=== PATIENT | male | born 1960 | race Hispanic/Latino ===

== ENCOUNTER 2017-02-08 21:59 | Inpatient (IN) | payer MEDICARE, OTHER ==
[2017-02-08 22:25] VITALS: BMI 43.0
[2017-02-08] MEDS ORDERED: Sodium Chloride 0.9% 1,000 ML IV STA (22:27)
[2017-02-08] MEDS ORDERED: Vancomycin 500 mg Inj IVPB STA (22:28)
[2017-02-08] MEDS ORDERED: Oxycodone/Acetaminophen 5/325 mg Tab PO STA (22:28)
[2017-02-08] MEDS ORDERED: Piperacillin/Tazobact 3.375 gm 100 ML IVPB STA (22:28)
--- NOTE | 2017-02-08 22:41 | ED PDOC ---
Arrival/HPI - General Time Seen by Provider: 02/08/17 22:06 Historian: Patient - History of Present Illness Narrative History of Present Illness (Text): 02/08/17 22:29 Omer Rome is a 56 year old male, whose past medical history includes chronic leg ulcer with multiple infections, CHF, COPD, DVT s/p IVC filter, hypertension, diabetes, and sleep apnea, presents to the emergency department for evaluation of worsening bilateral lower extremity redness and swelling. Patient also notes that he has an open wound to the left calf. He reports he had a fever of 101F yesterday, which resolved after waking up today. Report that he takes Oxycontin and Percocet for chronic pain, with last dose today at 9 am. States that pain has become worse that he is unable to ambulate within the house. He was recently hospitalized for an infection to open would on left leg. Not on any antibiotics currently. Patient fell down yesterday and states he was on the ground for 3 hours and has difficulty time getting back up on his feet. He is requesting to be placed in a custodial. Denies any headache, dizziness, trauma to head, chest pain, shortness of breath, cough, nausea, vomiting, diarrhea, urinary symptoms, or any other complaints at this time. PMD: Time/Duration: Other (worsening today ) Symptom Onset: Gradual Symptom Course: Worsening Severity Level: Moderate Activities at Onset: Light Context: Home Past Medical History - Provider Review Nursing Documentation Reviewed: Yes - Infectious Disease Hx of Infectious Diseases: MRSA, ESL - Tetanus Immunization Tetanus Immunization: Unknown - Reproductive Currently : No - Cardiac Hx Congestive Heart Failure: Yes Hx Hypertension: Yes Hx Peripheral Edema: Yes (+4 edema) - Pulmonary Hx Asthma: Yes Hx Chronic Obstructive Pulmonary Disease (COPD): Yes Hx Pneumonia: Yes Hx Pulmonary Embolism: Yes Hx Sleep Apnea: Yes - Neurological Hx Neurological Disorder: No - HEENT Hx HEENT Disorder: No - Renal Hx Renal Disorder: No - Endocrine/Metabolic Hx Hyperthyroidism: Yes Hx Hypothyroidism: Yes - Hematological/Oncological Hx Blood Disorders: No - Integumentary Hx Dermatological Disorder: Yes Hx Cellulitis: Yes (BLE) Other/Comment: both leggs discolored - Musculoskeletal/Rheumatological Hx Arthritis: Yes Hx Fractures: Yes - Gastrointestinal Hx Gastrointestinal Disorders: Yes - Genitourinary/Gynecological Hx Genitourinary Disorders: No - Psychiatric Hx Depression: Yes Hx Substance Use: No - Surgical History Hx Orthopedic Surgery: Yes (bilateral knee replacement) Other/Comment: total left knee - 1998. right ankle screws - 1987. right hip jason - 1982 - Anesthesia Hx Anesthesia: Yes Hx Anesthesia Reactions: No Hx Malignant Hyperthermia: No - Suicidal Assessment Feels Threatened In Home Enviroment: No Family/Social History - Physician Review Nursing Documentation Reviewed: Yes Family/Social History: No Known Family HX Smoking Status: Never Smoked Hx Alcohol Use: No Hx Substance Use: No Hx Substance Use Treatment: No Allergies/Home Meds Allergies/Adverse Reactions: Allergies No Known Allergies Allergy (Verified 02/08/17 22:09) Review of Systems - Physician Review All systems were reviewed & negative as marked: Yes - Review of Systems Constitutional: Fevers Respiratory: Normal. absent: SOB, Cough, Sputum Cardiovascular: Normal. absent: Chest Pain, Palpitations Gastrointestinal: Normal. absent: Abdominal Pain, Diarrhea, Nausea, Vomiting Musculoskeletal: Other (bilateral lower extremity edema. Open wound to left calf with discharge ) Neurological: Normal. absent: Headache, Dizziness Psychiatric: Normal Physical Exam Vital Signs Reviewed: Yes Vital Signs Temp Pulse Resp BP Pulse Ox 02/09/17 00:45 85 18 142/60 95 02/08/17 22:32 98.9 F 87 22 109/57 L 94 L Temperature: Afebrile Blood Pressure: Normal Pulse: Regular Respiratory Rate: Normal Appearance: Positive for: Non-Toxic, Other (obese ) Pain Distress: Mild Mental Status: Positive for: Alert and Oriented X 3 - Systems Exam Head: Present: Atraumatic, Normocephalic Pupils: Present: PERRL Conjunctiva: Present: Normal Respiratory/Chest: Present: Clear to Auscultation, Good Air Exchange. No: Respiratory Distress, Accessory Muscle Use Cardiovascular: Present: Regular Rate and Rhythm, Normal S1, S2. No: Murmurs Abdomen: Present: Normal Bowel Sounds. No: Tenderness, Distention, Peritoneal Signs Upper Extremity: Present: Normal Inspection. No: Cyanosis, Edema Lower Extremity: Present: Edema, Swelling, Erythema, Neurovascularly Intact, Other (10 cm open wound on left calf. Bilateral lower extremity edema with erythema. Chronic apperaing venous stasis changes with multiple ulcerations. ) . No: Deformity Neurological: Present: GCS=15, CN II-XII Intact, Speech Normal Skin: Present: Warm, Dry, Normal Color. No: Rashes Psychiatric: Present: Alert, Oriented x 3, Normal Insight, Normal Concentration Medical Decision Making ED Course and Treatment: Progress Notes: 02/08/17 23:06 EKG interpreted by me: NSR @ 81 bpm. Normal axis. No acute ischemia. 02/09/17 00:09 Chest X-ray interpreted by me: No acute processes. Case discussed with Dr. Gonzalez who is aware and agrees with the plan to admit patient to Med/Surg for lower extremity cellulitis. Accepts patient under his service. - Lab Interpretations I have reviewed the lab results: Yes - RAD Interpretation Radiology Orders: 02/08/17 22:27 CHEST PORTABLE [RAD] Stat Private Watchman: ED Physician - EKG Interpretation Interpreted by ED Physician: Yes Type: 12 lead EKG - Medication Orders Current Medication Orders: Amlodipine Besylate (Norvasc) 5 mg PO DAILY [facility] Last Admin: 02/11/17 10:13 Dose: 5 MG Arformoterol Tartrate (Brovana) 15 mcg IH [id number] [facility] Last Admin: 02/11/17 20:29 Dose: Not Given Non-Admin Reason: Patient Refused Budesonide (Pulmicort Respules) 0.5 mg IH [id number] [facility] Last Admin: 02/11/17 20:29 Dose: Not Given Non-Admin Reason: Patient Refused Clonidine HCl (Catapres) 0.1 mg PO BID [facility] Last Admin: 02/11/17 18:33 Dose: Not Given Non-Admin Reason: Patient Refused Docusate Sodium (Colace) 100 mg PO TID [facility] Last Admin: 02/11/17 18:14 Dose: Not Given Non-Admin Reason: Patient Refused Enoxaparin Sodium (Lovenox) 80 mg SC Q12H [facility] PRN Reason: Protocol Last Admin: 02/11/17 10:13 Dose: 80 MG Subcutaneous Administrations Document 02/11/17 10:13 VARSHA (Rec: 02/11/17 10:13 VARSHA [id number]) Injection Site MAR Injection Site Right Abdomen Charges for Administration # of Subcutaneous Administrations 1 Finasteride (Proscar) 5 mg PO DAILY [facility] Last Admin: 02/11/17 10:14 Dose: 5 MG Furosemide (Lasix) 80 mg PO Q8H [facility] Last Admin: 02/11/17 14:42 Dose: 80 MG MAR Blood Pressure Document 02/11/17 14:42 VARSHA (Rec: 02/11/17 14:42 VARSHA [id number]) Blood Pressure Blood Pressure (100/60-150/90) 155/69 Hydralazine HCl (Apresoline) 10 mg PO QID [facility] Last Admin: 02/11/17 18:14 Dose: 10 MG Vancomycin HCl (Vancomycin 1gm) 250 mls @ 167 mls/hr IVPB Q12H [facility] PRN Reason: Protocol Last Admin: 02/11/17 10:10 Dose: 167 MLS/HR eMAR Start Stop Document 02/11/17 10:10 VARSHA (Rec: 02/11/17 10:10 VARSHA [id number]) Intravenous Solution Start Date 02/11/17 Start Time 10:10 Meropenem 1g/NS 100mL IVPB (Meropenem 1g/Ns 100ml Ivpb) 100 mls @ 100 mls/hr IVPB Q8H [facility] Stop: 02/16/17 09:01 Last Admin: 02/11/17 16:12 Dose: 100 MLS/HR eMAR Start Stop Document 02/11/17 16:12 VARSHA (Rec: 02/11/17 16:12 VARSHA [id number]) Intravenous Solution Start Date 02/11/17 Start Time 16:12 Insulin Human Regular (Humulin R Med) 0 units SC ACHS [facility] PRN Reason: Protocol Last Admin: 02/11/17 17:00 Dose: Not Given Non-Admin Reason: Blood Sugar Parameter Levothyroxine Sodium (Synthroid) 75 mcg PO ACB [facility] Last Admin: 02/11/17 10:10 Dose: 75 MCG Metoprolol Tartrate (Lopressor) 25 mg PO BID [facility] Last Admin: 02/11/17 18:13 Dose: 25 MG Montelukast Sodium (Singulair) 10 mg PO HS [facility] Last Admin: 02/10/17 21:43 Dose: 10 MG Mupirocin (Bactroban Ointment) 0 gm TOP BID [facility] Last Admin: 02/11/17 18:14 Dose: Nystatin (Nystop Topical Powder) 0 gm TOP QSHIFT [facility] Last Admin: 02/11/17 15:00 Dose: 1 APPLIC Oxycodone HCl (Oxycontin Extended Release Tab) 80 mg PO Q6H [facility] Last Admin: 02/11/17 16:12 Dose: 80 MG [facility] Pain Assessment Document 02/11/17 16:12 VARSHA (Rec: 02/11/17 16:12 VARSHA [id number]) Pain Reassessment Is this a pain reassessment? Yes Presence of Pain Presence of Pain Yes Re-Assess: [facility] Pain Assessment Document 02/11/17 16:42 VARSHA (Rec: 02/11/17 17:48 VARSHA [id number]) Pain Reassessment Is this a pain reassessment? Yes Presence of Pain Presence of Pain Yes Oxycodone/Acetaminophen (Percocet 5/325 Mg Tab) 2 tab PO Q6H PRN PRN Reason: Pain, moderate (4-7) Stop: 02/12/17 08:12 Last Admin: 02/11/17 15:22 Dose: 2 TAB [facility] Pain Assessment Document 02/11/17 15:22 VARSHA (Rec: 02/11/17 15:23 VARSHA [id number]) Pain Reassessment Is this a pain reassessment? No Presence of Pain Presence of Pain Yes Re-Assess: [facility] Pain Assessment Document 02/11/17 16:22 VARSHA (Rec: 02/11/17 17:48 VARSHA [id number]) Pain Reassessment Is this a pain reassessment? Yes Presence of Pain Presence of Pain Yes Description Description Dull Warfarin Sodium (Coumadin) 15 mg PO 1800 [facility] PRN Reason: Protocol Last Admin: 02/11/17 18:13 Dose: 15 MG Discontinued Medications Acetaminophen (Tylenol 325mg Tab) 975 mg PO STAT STA Stop: 02/09/17 02:23 Last Admin: 02/09/17 02:51 Dose: 975 MG [facility] Pain/Vitals Document 02/09/17 02:51 B.P (Rec: 02/09/17 02:51 B.P [id number]) Pain Reassessment Is This A Pain ReAssessment? No Presence of Pain Presence of Pain Yes Re-Assess: [facility] Pain/Vitals Document 02/09/17 03:51 B.P (Rec: 02/09/17 06:40 B.P [id number]) Pain Reassessment Is This A Pain ReAssessment? Yes Sleep Is patient sleeping during reassessment? Yes Enoxaparin Sodium (Lovenox) 120 mg SC STAT STA PRN Reason: Protocol Stop: 02/09/17 00:08 Last Admin: 02/09/17 00:36 Dose: 120 MG Subcutaneous Administrations Document 02/09/17 00:36 SB (Rec: 02/09/17 00:36 SB [id number]) Injection Site MAR Injection Site Left Abdomen Charges for Administration # of Subcutaneous Administrations 1 Enoxaparin Sodium (Lovenox) 80 mg SC Q12H [facility] Furosemide (Lasix) 40 mg IVP Q12 [facility] Last Admin: 02/09/17 09:34 Dose: 40 MG MAR Blood Pressure Document 02/09/17 09:34 [facility] (Rec: 02/09/17 09:34 [id number] Blood Pressure Blood Pressure (100/60-150/90) 143/71 IVP Administration Document 02/09/17 09:34 [facility] (Rec: 02/09/17 09:34 [id number] Charges for Administration # of IVP Administrations 1 Furosemide (Lasix) 80 mg IVP Q8 [facility] Last Admin: 02/11/17 17:49 Dose: Sodium Chloride (Sodium Chloride 0.9%) 1,000 mls @ 999 mls/hr IV .Q1H1M STA Stop: 02/08/17 23:27 Last Admin: 02/08/17 23:43 Dose: 999 MLS/HR eMAR Start Stop Document 02/08/17 23:43 SB (Rec: 02/08/17 23:43 SB [id number]) Intravenous Solution Start Date 02/08/17 Start Time 23:43 End Date 02/08/17 Piperacillin Sod/Tazobactam Sod (Zosyn 3.375 In Ns 100ml) 100 mls @ 200 mls/hr IVPB STAT STA PRN Reason: Protocol Stop: 02/08/17 22:57 Last Admin: 02/08/17 23:43 Dose: 200 MLS/HR eMAR Start Stop Document 02/08/17 23:43 SB (Rec: 02/08/17 23:43 SB [facility] [id number]) Intravenous Solution Start Date 02/08/17 Start Time 23:43 End Date 02/08/17 Vancomycin HCl 1.87 gm/ Sodium (Chloride) 500 mls @ 170 mls/hr IVPB ONCE ONE Stop: 02/09/17 01:41 Last Admin: 02/09/17 00:36 Dose: 170 MLS/HR eMAR Start Stop Document 02/09/17 00:36 SB (Rec: 02/09/17 00:36 SB [id number]) Intravenous Solution Start Date 02/09/17 Start Time 00:36 End Date 02/09/17 Meropenem 1 gm/ Sodium (Chloride) 100 mls @ 100 mls/hr IVPB Q8 [facility] PRN Reason: Protocol Stop: 02/16/17 09:01 Oxycodone HCl (Oxycontin Extended Release Tab) 40 mg PO STAT STA Stop: 02/08/17 23:48 Last Admin: 02/09/17 00:36 Dose: 40 MG Oxycodone HCl (Oxycontin Extended Release Tab) 80 mg PO STAT STA Stop: 02/09/17 02:23 Last Admin: 02/09/17 02:51 Dose: 80 MG [facility] Pain Assessment Document 02/09/17 02:51 B.P (Rec: 02/09/17 02:51 B.P [id number]) Pain Reassessment Is this a pain reassessment? No Presence of Pain Presence of Pain Yes Re-Assess: [facility] Pain Assessment Document 02/09/17 03:21 B.P (Rec: 02/09/17 06:40 B.P [id number]) Pain Reassessment Is this a pain reassessment? Yes Sleep Is patient sleeping during reassessment? Yes Oxycodone HCl (Oxycontin Extended Release Tab) 80 mg PO Q12 [facility] Last Admin: 02/09/17 09:37 Dose: 80 MG [facility] Pain Assessment Document 02/09/17 09:37 [facility] (Rec: 02/09/17 14:43 [id number] Pain Reassessment Is this a pain reassessment? No Sleep Is patient sleeping during reassessment? No Presence of Pain Presence of Pain Yes Pain Scale Used Pain Scale Used Numeric Location Upper or Lower Lower Pain Location Body Site Leg Description Description Intermittent Intensity of Pain at present 8 Pain Behavior Guarding Aggravating Factors None Alleviating Factors/Management Medication Techniques Alleviating Factors Medication Re-Assess: [facility] Pain Assessment Document 02/09/17 10:07 [facility] (Rec: 02/09/17 18:33 [id number] Pain Reassessment Is this a pain reassessment? Yes Sleep Is patient sleeping during reassessment? No Presence of Pain Presence of Pain Yes Pain Scale Used Pain Scale Used Numeric Description Intensity of Pain at present 6 Oxycodone HCl (Oxycontin Extended Release Tab) 80 mg PO Q6H PRN PRN Reason: Pain, moderate (4-7) Oxycodone/Acetaminophen (Percocet 5/325 Mg Tab) 2 tab PO STAT STA Stop: 02/08/17 22:29 Last Admin: 02/08/17 22:46 Dose: 2 TAB Warfarin Sodium (Coumadin) 10 mg PO 1800 [facility] PRN Reason: Protocol Last Admin: 02/09/17 19:03 Dose: 10 MG Warfarin Sodium (Coumadin) 5 mg PO STAT STA PRN Reason: Protocol Stop: 02/09/17 21:02 Last Admin: 02/09/17 21:49 Dose: 5 MG MAR INR Result Document 02/09/17 21:49 BR (Rec: 02/09/17 21:49 BR [id number]) INR INR 1.1 - Scribe Statement The provider has reviewed the documentation as recorded by the Martina Sanon Provider Attestation: All medical record entries made by the Martina were at my direction and personally dictated by me. I have reviewed the chart and agree that the record accurately reflects my personal performance of the history, physical exam, medical decision making, and the department course for this patient. I have also personally directed, reviewed, and agree with the discharge instructions and disposition. Disposition/Present on Arrival - Present on Arrival Any Indicators Present on Arrival: Yes History of DVT/PE: Yes History of Uncontrolled Diabetes: Yes Urinary Catheter: Yes History Surgical Site Infection Following: None - Disposition Have Diagnosis and Disposition been Completed?: Yes Diagnosis: Cellulitis Disposition: HOSPITALIZED Disposition Time: 22:46 Patient Problems: Current Active Problems Problem Status Diagnosed Left leg pain Acute Hypertension Chronic Hyperglycemia Chronic Leg ulcer, left Chronic Condition: STABLE
[2017-02-08] MEDS ORDERED: VANCOMYCIN IVPB ONE (22:45)
[2017-02-08] MEDS ORDERED: SODIUM CHLORIDE 0.9% IVPB ONE (22:45)
[2017-02-08 23:33] LABS: ADD MANUAL DIFF? NO
[2017-02-08 23:43] LABS: BASO # 0.03 K/mm3 (0.0-2.0); BASO % 0.5 % (0.0-3.0); EOS # 0.2 (0.0-0.7); EOS % 3.5 % (1.5-5.0); GRAN # 4.54 (1.4-6.5); LYMPH % 15.8 % (22.0-35.0); MEAN CELL VOLUME 87.6 fL (80.0-105.0); MEAN CORPUSCULAR HEMOGLOBIN 29.4 pg (25.0-35.0); MEAN CORPUSCULAR HGB CONC 33.5 g/dl (31.0-37.0); MEAN PLATELET VOLUME 11.1 fl (7.0-11.0); MONO # 0.5 (0.1-0.6); MONO % 7.2 % (1.0-6.0); PLATELET COUNT 183 10^3/uL (120.0-450.0); RED CELL DISTRIBUTION WIDTH 13.5 % (11.5-14.5); WHITE BLOOD COUNT 6.2 10^3/ul (4.5-11.0)
[2017-02-08 23:44] LABS: VENOUS BLOOD GAS BASE EXCESS 8.4 mmol/L (0.0-2.0); VENOUS BLOOD PH 7.41 (7.32-7.43)
[2017-02-08] MEDS ORDERED: oxyCODONE 20 mg ER Tab (oxyCONTIN) PO STA (23:47)
[2017-02-08 23:48] LABS: INR 1.19 (0.93-1.08)
[2017-02-08 23:57] LABS: ALB/GLOB RATIO 0.9 (1.1-1.8); ALKALINE PHOSPHATASE 124 U/L (38-133); ALT/SGPT 25 U/L (7-56); AST/SGOT 27 U/L (15-59); BILIRUBIN,TOTAL 0.8 mg/dL (0.2-1.3); BLOOD UREA NITROGEN 13 mg/dL (7-21); CALCIUM 9.3 mg/dL (8.4-10.5); CARBON DIOXIDE 33 mmol/L (21-33); CHLORIDE 96 mmol/L (98-107); GFR AFRICAN-AMERICAN > 60; GLUCOSE,RANDOM 122 mg/dL (70-110); POTASSIUM 4.4 mmol/L (3.6-5.0); SODIUM 139 mmol/L (132-148); TOTAL PROTEIN 8.3 g/dL (5.8-8.3)
[2017-02-09] MEDS ORDERED: Enoxaparin 120 mg Syringe SC STA (00:07)
[2017-02-09 00:10] LABS: TROPONIN I < 0.01 ng/mL
[2017-02-09 01:25] LABS: URINE BILIRUBIN NEGATIVE (NEGATIVE); URINE BLOOD NEGATIVE (NEGATIVE); URINE GLUCOSE (UA) NEGATIVE (NEGATIVE); URINE KETONE NEGATIVE (NEGATIVE); URINE LEUKOCYTE ESTERASE NEGATIVE Leu/uL (NEGATIVE); URINE PROTEIN 100 mg/dL (<30 mg/dL); URINE UROBILINOGEN 0.2 E.U./dL (<1 E.U./dL)
[2017-02-09 01:32] LABS: URINE APPEARANCE SLIGHT-CLOUDY (CLEAR); URINE COLOR YELLOW (YELLOW)
[2017-02-09 01:44] LABS: URINE EPITHELIAL CELLS 0 - 2 /hpf (0-5); URINE RBC 0 - 2 /hpf (0-2); URINE WBC 0 - 2 /hpf (0-6)
[2017-02-09] MEDS ORDERED: oxyCODONE 80 mg ER Tab (oxyCONTIN) PO STA (02:22)
--- NOTE | 2017-02-09 02:25 | CP.PCM.PN ---
Subjective - Date & Time of Evaluation Date of Evaluation: 02/09/17 Time of Evaluation: 02:23 - Subjective Subjective: Patient was seen for his complaint of pain in left side of body including left leg. Has no other complaints. Denies chest pain, sob. Leg pain is sharp. This 56 year old white male is admitted with left calf open wound, fever. Has PMH of Asthma , CAD, Hypertension, HLD, Hyperthyroidism/Hypothyroidism , CHF , depression, DM, PE, DVT, fibromyalgia,S/P IVC filter. Objective - Vital Signs/Intake and Output Vital Signs (last 24 hours): Temp Pulse Resp BP Pulse Ox 98.9 F 85 18 142/60 95 02/08/17 22:32 02/09/17 00:45 02/09/17 00:45 02/09/17 00:45 02/09/17 00:45 - Medications Medications: Current Medications Acetaminophen (Tylenol 325mg Tab) 975 mg PO STAT STA Stop: 02/09/17 02:23 - Labs Labs: 02/08/17 23:23 02/08/17 23:23 PT 12.8 Seconds (9.9-11.8) H 02/08/17 23:23 INR 1.19 (0.93-1.08) H 02/08/17 23:23 - Constitutional Appears: Well, No Acute Distress - Head Exam Head Exam: ATRAUMATIC, NORMAL INSPECTION, NORMOCEPHALIC - Eye Exam Eye Exam: Normal appearance - ENT Exam ENT Exam: Normal External Ear Exam - Neck Exam Neck Exam: Normal Inspection - Respiratory Exam Respiratory Exam: NORMAL BREATHING PATTERN - Cardiovascular Exam Cardiovascular Exam: absent: JVD - GI/Abdominal Exam GI & Abdominal Exam: absent: Distended - Rectal Exam Rectal Exam: Deferred - Extremities Exam Extremities Exam: Pedal Edema (Yes.) - Back Exam Back Exam: NORMAL INSPECTION - Neurological Exam Neurological Exam: Alert, Oriented x3 - Psychiatric Exam Psychiatric exam: Normal Affect, Normal Mood - Skin Additional comments: Left leg wrapped in liya bandage. Edema + Assessment and Plan - Assessment and Plan (Free Text) Assessment: A/P:Left leg pain. Left leg infection. Obesity. JOSELUIS. HTN. DM. HLD. Hx DVT/PE. Oxycodone 80 mg po stat. Tylenol 975 mg PO stat. Continue as per .
--- NOTE | 2017-02-09 07:32 | RAD ---
HISTORY: fever COMPARISON: Comparison chest dated 05/02/2016. She FINDINGS: LUNGS: Minor bibasilar atelectasis. PLEURA: No significant pleural effusion identified, no pneumothorax apparent. CARDIOVASCULAR: Heart size difficult to assess due to rotation. OSSEOUS STRUCTURES: No significant abnormalities. VISUALIZED UPPER ABDOMEN: Normal. OTHER FINDINGS: None. IMPRESSION: Mild bibasilar atelectasis.
[2017-02-09] MEDS: Insulin Reg-MEDIUM-Coverage SC SCH ×4 (08:00→22:00)
[2017-02-09] MEDS ORDERED: Meropenem 1 GM in Sodium Chloride 0.9% 100 ML IVPB SCH (09:00)
[2017-02-09] MEDS: Levothyroxine 75 MCG TAB PO SCH (09:31)
[2017-02-09] MEDS: Meropenem 1g/NS 100mL IVPB 100 ML IVPB SCH ×2 (09:35→19:04)
[2017-02-09] MEDS: Oxycodone/Acetaminophen 5/325 mg Tab PO PRN ×3 (09:37→23:23)
[2017-02-09] MEDS: Vancomycin 1gm in NS 250ml 250 ML IVPB SCH ×2 (09:38→21:48)
[2017-02-09] MEDS ORDERED: oxyCODONE 80 mg ER Tab (oxyCONTIN) PO SCH (10:00)
--- NOTE | 2017-02-09 10:14 | CARD ---
APPROVED REPORT EKG Measurement Heart [id number] <Conclusion> Normal sinus rhythm Normal ECG
[2017-02-09] MEDS ORDERED: Enoxaparin 80 mg Syringe SC SCH (12:00)
--- NOTE | 2017-02-09 13:49 | CP.PCM.CON ---
<Dipti Loyd - Last Filed: 02/09/17 13:44> History of Present Illness - History of Present Illness History of Present Illness: 56 y/o male with PMH of Asthma , CAD, Hypertension, HLD, Hyperthyroidism/ Hypothyroidism , CHF, depression, DM, PE, DVT, fibromyalgia,S/P IVC filter seen at bedside with attending Dr. Daniels for bilateral venous stasis ulcerations of the lower extremities. Patient states that he was in a rehab facility for 100 days but he has used up all of his days there. Patient states that he is unable to ambulate anymore because he is in too much pain. Patient states that he also developed a sacral ulcer while laying down at home. Patient states that he has a lot of pain and swelling in his legs. He denies n/f/v/c/d/sob. Review of Systems - Constitutional Constitutional: As Per HPI Past Patient History - Infectious Disease Hx of Infectious Diseases: MRSA, ESL - Tetanus Immunizations Tetanus Immunization: Unknown - Past Medical History & Family History Past Medical History?: Yes - Past Social History Smoking Status: Never Smoked - CARDIAC Hx Congestive Heart Failure: Yes Hx Hypertension: Yes Hx Peripheral Edema: Yes (+4 edema) - PULMONARY Hx Asthma: Yes Hx Chronic Obstructive Pulmonary Disease (COPD): Yes Hx Pneumonia: Yes Hx Pulmonary Embolism: Yes Hx Sleep Apnea: Yes - NEUROLOGICAL Hx Neurological Disorder: No - HEENT Hx HEENT Problems: No - RENAL Hx Chronic Kidney Disease: No - ENDOCRINE/METABOLIC Hx Hyperthyroidism: Yes Hx Hypothyroidism: Yes - HEMATOLOGICAL/ONCOLOGICAL Hx Blood Disorders: No - INTEGUMENTARY Hx Dermatological Problems: Yes Hx Cellulitis: Yes (BLE) Other/Comment: both leggs discolored - MUSCULOSKELETAL/RHEUMATOLOGICAL Hx Arthritis: Yes Hx Fractures: Yes - GASTROINTESTINAL Hx Gastrointestinal Disorders: Yes - GENITOURINARY/GYNECOLOGICAL Hx Genitourinary Disorders: No - PSYCHIATRIC Hx Depression: Yes Hx Substance Use: No - SURGICAL HISTORY Hx Orthopedic Surgery: Yes (bilateral knee replacement) Other/Comment: total left knee - 1998. right ankle screws - 1987. right hip jason - 1982 - ANESTHESIA Hx Anesthesia: Yes Hx Anesthesia Reactions: No Hx Malignant Hyperthermia: No Meds Allergies/Adverse Reactions: Allergies Allergy/AdvReac Type Severity Reaction Status Date / Time No Known Allergies Allergy Verified 02/08/17 22:09 - Medications Medications: Current Medications Clonidine HCl (Catapres) 0.1 mg PO BID [facility] Last Admin: 02/09/17 09:33 Dose: 0.1 mg Docusate Sodium (Colace) 100 mg PO TID [facility] Last Admin: 02/09/17 09:32 Dose: Not Given Enoxaparin Sodium (Lovenox) 80 mg SC Q12H [facility] Finasteride (Proscar) 5 mg PO DAILY [facility] Last Admin: 02/09/17 09:34 Dose: 5 mg Furosemide (Lasix) 40 mg IVP Q12 [facility] Last Admin: 02/09/17 09:34 Dose: 40 mg Vancomycin HCl (Vancomycin 1gm) 250 mls @ 167 mls/hr IVPB Q12H [facility] PRN Reason: Protocol Last Admin: 02/09/17 09:38 Dose: Not Given Meropenem 1g/NS 100mL IVPB (Meropenem 1g/Ns 100ml Ivpb) 100 mls @ 100 mls/hr IVPB Q8H [facility] Stop: 02/16/17 09:01 Last Admin: 02/09/17 09:35 Dose: 100 mls/hr Insulin Human Regular (Humulin R Med) 0 units SC ACHS [facility] PRN Reason: Protocol Last Admin: 02/09/17 08:00 Dose: Not Given Levothyroxine Sodium (Synthroid) 75 mcg PO ACB [facility] Last Admin: 02/09/17 09:31 Dose: 75 mcg Metoprolol Tartrate (Lopressor) 25 mg PO BID [facility] Last Admin: 02/09/17 09:34 Dose: 25 mg Nystatin (Nystop Topical Powder) 0 gm TOP QSHIFT [facility] Oxycodone HCl (Oxycontin Extended Release Tab) 80 mg PO Q12 [facility] Oxycodone/Acetaminophen (Percocet 5/325 Mg Tab) 2 tab PO Q6H PRN PRN Reason: Pain, moderate (4-7) Stop: 02/12/17 08:12 Last Admin: 02/09/17 09:37 Dose: 2 tab Warfarin Sodium (Coumadin) 10 mg PO 1800 [facility] PRN Reason: Protocol Physical Exam - Constitutional Appears: Well, Non-toxic, No Acute Distress - Extremities Exam Additional comments: Vasc: nonpalpable pedal pulses due to edema b/l, TG warm to warm, CFT < 3 sec to all digits, +1 pitting edema Neuro: grossly diminished Derm: +1 pitting edema to legs bilateral, localized erythema to midcalf bilateral, no ascending cellulitis, superficial open lesions on the posterior aspect of left leg, medial aspect of right leg- granular base, no purulence, moderate serous drainage, no active bleeding, no undermining, no tracking, no probe to bone ortho: pain on palpation of posterior and medial legs b/l - Neurological Exam Neurological exam: Alert, Oriented x3 - Psychiatric Exam Psychiatric exam: Normal Affect, Normal Mood Results - Vital Signs Recent Vital Signs: Last Vital Signs Temp 98.4 F 02/09/17 08:16 Pulse 80 02/09/17 08:16 Resp 22 02/09/17 08:16 BP 143/71 02/09/17 09:34 Pulse Ox 92 L 02/09/17 08:16 - Labs Result Diagrams: 02/08/17 23:23 02/08/17 23:23 Labs: Laboratory Results - last 24 hr 02/08/17 02/09/17 02/09/17 23:23 00:57 07:22 WBC 6.2 RBC 3.88 Hgb 11.4 L Hct 34.0 L MCV 87.6 MCH 29.4 MCHC 33.5 RDW 13.5 Plt Count 183 MPV 11.1 H Gran % 73.0 H Lymph % (Auto) 15.8 L [place] % (Auto) 7.2 H Eos % (Auto) 3.5 Baso % (Auto) 0.5 Gran # 4.54 Lymph # 1.0 L [place] # 0.5 Eos # 0.2 Baso # 0.03 PT 12.8 H INR 1.19 H pO2 49 VBG pH 7.41 VBG pCO2 55.0 VBG HCO3 34.9 H VBG Total CO2 36.6 H VBG O2 Sat (Calc) 87.6 H VBG Base Excess 8.4 H VBG Potassium 4.4 Sodium 139 Chloride 96 L Glucose 123 H Lactate 0.9 FiO2 21.0 Potassium 4.4 Carbon Dioxide 33 Anion Gap 14 BUN 13 Creatinine 0.9 Est GFR ( Amer) > 60 Est GFR (Non-Af Amer) > 60 POC Glucose (mg/dL) 93 Random Glucose 122 H Calcium 9.3 Total Bilirubin 0.8 AST 27 ALT 25 Alkaline Phosphatase 124 Troponin I < 0.01 Total Protein 8.3 Albumin 3.9 Globulin 4.5 Albumin/Globulin Ratio 0.9 L Venous Blood Potassium 4.4 Urine Color Yellow Urine Appearance Slight-cloudy Urine pH 7.0 Ur Specific [place] 1.015 Urine Protein 100 H Urine Glucose (UA) Negative Urine Ketones Negative Urine Blood Negative Urine Nitrate Negative Urine Bilirubin Negative Urine Urobilinogen 0.2 Ur Leukocyte Esterase Negative Urine RBC 0 - 2 Urine WBC 0 - 2 Ur Epithelial Cells 0 - 2 Assessment & Plan - Assessment and Plan (Free Text) Assessment: 56 y/o male with PMH of Asthma , CAD, Hypertension, HLD, Hyperthyroidism/ Hypothyroidism , CHF, depression, DM, PE, DVT, fibromyalgia,S/P IVC filter seen at bedside for bilateral venous stasis ulcerations Plan: patient evaluated and seen at bedside with attending Dr. Daniels labs and vitals reviewed; afebrile, WBC 6.2 continue IV abx cleansed legs with saline, applied telfa, ABD, kerlix to bilateral legs patient encouraged to begin walking again Rx bactroban to apply topically daily Rx multipodus offloading boots podiatry will continue to monitor while patient remains in house <Preeti Daniels - Last Filed: 02/13/17 12:53> Results - Vital Signs Recent Vital Signs: Last Vital Signs Temp 97.5 F L 02/12/17 16:00 Pulse 68 02/12/17 16:00 Resp 20 02/12/17 16:00 BP 135/72 02/12/17 16:00 Pulse Ox 94 L 02/12/17 16:00 - Labs Result Diagrams: 02/12/17 07:00 02/12/17 07:00 Labs: Laboratory Results - last 24 hr 02/12/17 15:45 POC Glucose (mg/dL) 145 H Attending/Attestation - Attestation I have personally seen and examined this patient.: Yes I have fully participated in the care of the patient.: Yes I have reviewed all pertinent clinical information: Yes
--- NOTE | 2017-02-09 15:55 | CP.PCM.CON ---
History of Present Illness - History of Present Illness History of Present Illness: 56 year old male with PMH of Morbid obesity with BMI of 43, DM, HTN, COPD, hypothyroidism, bilateral lower extremity swelling due to venous stasis, Osteoarthritis, Chronic pain syndrome came in to [facility] complaining of worsening bilateral lower extremity swelling and oozing for the past 3-4 days. There is also associated pain which makes his ambulation difficult. The patient has been recently admitted for an open wound on his left leg, but was not given antibiotics for it. He complains of subjective fevers but no fevers were documented during this admission. HE denies headache or dizziness, no chest pain, no nausea or vomiting, no abdominal pain, no SOB, no diarrhea, no dysuria. He also denies animal contacts, no swimming, no wading in water, no travel to wooded areas, no walking barefoot on soil. Infectious Diseases consult is requested to further evaluate and manage. Review of Systems - Review of Systems All systems: reviewed and no additional remarkable complaints except (as per HPI ) Past Patient History - Infectious Disease Hx of Infectious Diseases: MRSA, ESL - Tetanus Immunizations Tetanus Immunization: Unknown - Past Medical History & Family History Past Medical History?: Yes - Past Social History Smoking Status: Never Smoked - CARDIAC Hx Congestive Heart Failure: Yes Hx Hypertension: Yes Hx Peripheral Edema: Yes (+4 edema) - PULMONARY Hx Asthma: Yes Hx Chronic Obstructive Pulmonary Disease (COPD): Yes Hx Pneumonia: Yes Hx Pulmonary Embolism: Yes Hx Sleep Apnea: Yes - NEUROLOGICAL Hx Neurological Disorder: No - HEENT Hx HEENT Problems: No - RENAL Hx Chronic Kidney Disease: No - ENDOCRINE/METABOLIC Hx Hyperthyroidism: Yes Hx Hypothyroidism: Yes - HEMATOLOGICAL/ONCOLOGICAL Hx Blood Disorders: No - INTEGUMENTARY Hx Dermatological Problems: Yes Hx Cellulitis: Yes (BLE) Other/Comment: both leggs discolored - MUSCULOSKELETAL/RHEUMATOLOGICAL Hx Arthritis: Yes Hx Fractures: Yes - GASTROINTESTINAL Hx Gastrointestinal Disorders: Yes - GENITOURINARY/GYNECOLOGICAL Hx Genitourinary Disorders: No - PSYCHIATRIC Hx Depression: Yes Hx Substance Use: No - SURGICAL HISTORY Hx Orthopedic Surgery: Yes (bilateral knee replacement) Other/Comment: total left knee - 1998. right ankle screws - 1987. right hip jason - 1982 - ANESTHESIA Hx Anesthesia: Yes Hx Anesthesia Reactions: No Hx Malignant Hyperthermia: No Meds Allergies/Adverse Reactions: Allergies Allergy/AdvReac Type Severity Reaction Status Date / Time No Known Allergies Allergy Verified 02/08/17 22:09 - Medications Medications: Current Medications Clonidine HCl (Catapres) 0.1 mg PO BID [facility] Docusate Sodium (Colace) 100 mg PO TID [facility] Finasteride (Proscar) 5 mg PO DAILY [facility] Furosemide (Lasix) 40 mg IVP Q12 [facility] Insulin Human Regular (Humulin R Med) 0 units SC ACHS [facility] PRN Reason: Protocol Levothyroxine Sodium (Synthroid) 75 mcg PO ACB [facility] Metoprolol Tartrate (Lopressor) 25 mg PO BID [facility] Nystatin (Nystop Topical Powder) 0 gm TOP QSHIFT [facility] Oxycodone HCl (Oxycontin Extended Release Tab) 80 mg PO Q12 [facility] Oxycodone/Acetaminophen (Percocet 5/325 Mg Tab) 2 tab PO Q6H [facility] PRN Reason: Pain, moderate (4-7) Stop: 02/12/17 08:12 Warfarin Sodium (Coumadin) 10 mg PO 1800 [facility] PRN Reason: Protocol Physical Exam - Constitutional Appears: Non-toxic, No Acute Distress - Head Exam Head Exam: NORMAL INSPECTION - ENT Exam ENT Exam: Mucous Membranes Moist - Neck Exam Neck exam: Negative for: Lymphadenopathy, Meningismus - Respiratory Exam Respiratory Exam: Decreased Breath Sounds - Cardiovascular Exam Cardiovascular Exam: +S1, +S2 - GI/Abdominal Exam GI & Abdominal Exam: Soft. absent: Tenderness - Extremities Exam Additional comments: both legs with dry dressings in place Results - Vital Signs Recent Vital Signs: Last Vital Signs Temp 98.4 F 02/09/17 08:16 Pulse 80 02/09/17 08:16 Resp 22 02/09/17 08:16 BP 143/71 02/09/17 08:16 Pulse Ox 92 L 02/09/17 08:16 - Labs Result Diagrams: 02/08/17 23:23 02/08/17 23:23 Labs: Laboratory Results - last 24 hr 02/08/17 02/09/17 23:23 00:57 WBC 6.2 RBC 3.88 Hgb 11.4 L Hct 34.0 L MCV 87.6 MCH 29.4 MCHC 33.5 RDW 13.5 Plt Count 183 MPV 11.1 H Gran % 73.0 H Lymph % (Auto) 15.8 L [place] % (Auto) 7.2 H Eos % (Auto) 3.5 Baso % (Auto) 0.5 Gran # 4.54 Lymph # 1.0 L [place] # 0.5 Eos # 0.2 Baso # 0.03 PT 12.8 H INR 1.19 H pO2 49 VBG pH 7.41 VBG pCO2 55.0 VBG HCO3 34.9 H VBG Total CO2 36.6 H VBG O2 Sat (Calc) 87.6 H VBG Base Excess 8.4 H VBG Potassium 4.4 Sodium 139 Chloride 96 L Glucose 123 H Lactate 0.9 FiO2 21.0 Potassium 4.4 Carbon Dioxide 33 Anion Gap 14 BUN 13 Creatinine 0.9 Est GFR ( Amer) > 60 Est GFR (Non-Af Amer) > 60 Random Glucose 122 H Calcium 9.3 Total Bilirubin 0.8 AST 27 ALT 25 Alkaline Phosphatase 124 Troponin I < 0.01 Total Protein 8.3 Albumin 3.9 Globulin 4.5 Albumin/Globulin Ratio 0.9 L Venous Blood Potassium 4.4 Urine Color Yellow Urine Appearance Slight-cloudy Urine pH 7.0 Ur Specific [place] 1.015 Urine Protein 100 H Urine Glucose (UA) Negative Urine Ketones Negative Urine Blood Negative Urine Nitrate Negative Urine Bilirubin Negative Urine Urobilinogen 0.2 Ur Leukocyte Esterase Negative Urine RBC 0 - 2 Urine WBC 0 - 2 Ur Epithelial Cells 0 - 2 Assessment & Plan - Assessment and Plan (Free Text) Plan: Assessment Consider skin and skin structure infection with bilateral leg infected ulcers in a patient with recurrent leg infections and venous stasis history of Skin and skin structure infection of the left lower extremity with Pseudomonas, Enterococcus and MRSA in a patient with recurrent left leg infection Morbid obesity with BMI of 43 DM HTN COPD hyopthyroidism bilateral lower extremity swelling due to venous stasis Osteoarthritis Chronic pain syndrome Plan started patient on Vancomycin and Meropenem pending wound cultures, blood cx; follow up Podiatry evaluation; should consider doppler ultrasound to rule out DVT Will follow clinically
[2017-02-09] MEDS: Nystatin 100,000 Units/gm Topical Pow(15 gm) TOP SCH ×2 (19:04→22:00)
--- NOTE | 2017-02-09 20:18 | CON ---
DATE: 02/09/2017 REFERRING PHYSICIAN: Dr. Gonzalez. REASON FOR CONSULT: Chronic obstructive lung disease, obstructive sleep apnea syndrome, morbid obesi ty, history of pulmonary embolism and deep venous thrombosis. HISTORY OF PRESENT ILLNESS: This is a 56-year-old gentleman with multiple medical issues including c hronic obstructive lung disease, obstructive sleep apnea syndrome, history of pulmonary embolism, rec urrent DVT, hypothyroid, diabetes, depression, has an IVC filter, recurrent ulceration and stasis of the lower extremity with multidrug resistant organisms, noncompliant with followups, chronic pain syn drome, opioids and benzodiazepine dependent, who comes in with the lower extremity pain, ulcerative u lcer with oozing secretions. He was admitted for further workup. Presently lying in the bed. Has s ome rhinitis, cough, sputum production. No chest pain, no hemoptysis, no hematemesis. PAST MEDICAL HISTORY: As per history of present illness. ALLERGIES: None known. SOCIAL HISTORY: Nonsmoker, nondrinker. FAMILY HISTORY: No significant cardiopulmonary disease reported. MEDICATIONS: He is on Bactroban ointment to the affected area twice a day, clonidine 0.1 mg twice a day, Colace 100 mg 3 times a day, Coumadin 10 mg will be given tonight, Lasix 40 mg IV q.8 hours, met oprolol tartrate 25 mg twice a day, Lovenox 80 mg subQ twice a day. He is on meropenem 1 g IV q.8 ho urs, OxyContin extended release 80 mg twice a day, Percocet 5/325 two tabs q.6 hours p.r.n., Proscar 5 mg daily, Synthroid 75 mcg ACB, vancomycin 1 g IV q.12 hours. REVIEW OF SYSTEMS: No headache. Has some rhinitis, postnasal drip, cough, sputum production. No ch est pain. Short of breath with exertion. No nausea, vomiting or diarrhea. Has bilateral leg swolle n ulcers, which are oozing with secretion, erythema and tenderness. Cannot stand on his feet. No dy suria, no polyuria, no diarrhea. PHYSICAL EXAMINATION: GENERAL: Lying in the bed with elevated lower extremities. Has a cough and shortness of breath. VITAL SIGNS: Temp is 98, heart rate is 70, respiratory rate is 20, blood pressure 151/79, pulse ox 9 5% on room air. HEENT: Moist mucous membranes. Crowded airway. Mallampati score is 4. NECK: Supple. No JVD. LUNGS: Has scattered rhonchi and a few wheezing. HEART: S1 and S2. ABDOMEN: Obese, soft, nontender, no organomegaly. EXTREMITIES: Has oozing ulcers to both lower extremities. Both lower extremities skin are darkened, swollen and tender to touch. NEUROLOGIC: Awake, alert, follows simple commands. LABORATORY DATA: Shows hemoglobin 11.4, hematocrit 34.7, WBC 6.2, platelet is 183. INR 1.1. Venous blood gases shows pH 7.41, pCO2 of 55, O2 of 49; this is on room air. Sodium 139, potassium 4.4, ch loride 96, bicarbonate is 33, BUN , creatinine 0.9, glucose 122, calcium 9.3, total bilirubin 0. 8, AST 27, ALT 25, alkaline phosphatase is 124, albumin is 3.9. Had a chest x-ray done, which shows mild basilar atelectasis. EKG shows normal sinus rhythm. IMPRESSION AND PLAN: Cellulitis and probably infected ulcers of both lower extremities with signific ant edema, chronic obstructive lung disease, obstructive sleep apnea syndrome, history of pulmonary e mbolism, history of deep venous thrombosis with inferior vena cava filter, hypertension, diabetes, mo rbid obesity, chronic pain syndrome. I agree with Dr. Gonzalez with the present management. Will sugg est increasing the Lasix to 80 mg IV q.8 hours. Follow up electrolytes closely. Antibiotics as per infectious disease. Keep both lower extremities elevated. May get a venous Doppler of lower extremi ty to assure that there is no DVT. Will encourage him to use CPAP of 8 cm while sleeping. He may ne ed a much higher pressure, but he is noncompliant and does not use it. Lower pressure and he may try it. Add Singulair 10 mg at bedtime and DuoNeb q.6 hours. Follow up INR in the morning. Thank you and will follow with you. Siri Santoyo MD cc: [id number] TT: 02/09/2017 20:18:01 Confirmation # [id number] Dictation # [id number] dn
[2017-02-09] MEDS ORDERED: oxyCODONE 80 mg ER Tab (oxyCONTIN) PO PRN (21:02)
[2017-02-09] MEDS: Arformoterol 15 mcg/2 ml Inh Sol IH SCH (21:30)
[2017-02-09] MEDS: Budesonide 0.5 mg/2 ml Inhal Susp UD IH SCH (21:30)
[2017-02-09] MEDS: Enoxaparin 80 mg Syringe SC SCH (21:49)
[2017-02-09] MEDS: oxyCODONE 80 mg ER Tab (oxyCONTIN) PO SCH (21:49)
[2017-02-10] MEDS: Meropenem 1g/NS 100mL IVPB 100 ML IVPB SCH ×3 (00:26→17:45)
[2017-02-10] MEDS: oxyCODONE 80 mg ER Tab (oxyCONTIN) PO SCH ×4 (03:40→21:43)
[2017-02-10] MEDS: Oxycodone/Acetaminophen 5/325 mg Tab PO PRN ×4 (06:33→23:41)
[2017-02-10] MEDS: Budesonide 0.5 mg/2 ml Inhal Susp UD IH SCH ×2 (07:32→19:42)
[2017-02-10] MEDS: Arformoterol 15 mcg/2 ml Inh Sol IH SCH ×2 (07:32→19:42)
[2017-02-10] MEDS: Nystatin 100,000 Units/gm Topical Pow(15 gm) TOP SCH ×3 (07:49→23:41)
[2017-02-10] MEDS: Insulin Reg-MEDIUM-Coverage SC SCH ×4 (07:49→22:00)
[2017-02-10 08:04] LABS: ADD MANUAL DIFF? NO
[2017-02-10 08:06] LABS: BASO # 0.02 K/mm3 (0.0-2.0); BASO % 0.3 % (0.0-3.0); EOS # 0.4 (0.0-0.7); EOS % 5.9 % (1.5-5.0); GRAN # 3.46 (1.4-6.5); GRAN % 58.3 % (50.0-68.0); HEMATOCRIT 33.5 % (42.0-52.0); LYMPH # 1.6 (1.2-3.4); LYMPH % 27.6 % (22.0-35.0); MEAN CELL VOLUME 87.5 fL (80.0-105.0); MEAN CORPUSCULAR HGB CONC 33.1 g/dl (31.0-37.0); MONO # 0.5 (0.1-0.6); MONO % 7.9 % (1.0-6.0); PLATELET COUNT 169 10^3/uL (120.0-450.0); RED CELL DISTRIBUTION WIDTH 13.4 % (11.5-14.5); WHITE BLOOD COUNT 5.9 10^3/ul (4.5-11.0)
[2017-02-10] MEDS: Levothyroxine 75 MCG TAB PO SCH (08:11)
[2017-02-10 08:22] LABS: ALB/GLOB RATIO 0.9 (1.1-1.8); ALKALINE PHOSPHATASE 117 U/L (38-133); ALT/SGPT 25 U/L (7-56); AST/SGOT 25 U/L (15-59); BILIRUBIN,TOTAL 0.5 mg/dL (0.2-1.3); BLOOD UREA NITROGEN 13 mg/dL (7-21); CARBON DIOXIDE 34 mmol/L (21-33); CHLORIDE 97 mmol/L (98-107); GFR AFRICAN-AMERICAN > 60; GLUCOSE,RANDOM 98 mg/dL (70-110); MAGNESIUM 1.9 mg/dL (1.7-2.2); POTASSIUM 4.1 mmol/L (3.6-5.0); SODIUM 138 mmol/L (132-148); TOTAL PROTEIN 7.8 g/dL (5.8-8.3)
[2017-02-10] MEDS: Vancomycin 1gm in NS 250ml 250 ML IVPB SCH ×2 (09:47→21:43)
--- NOTE | 2017-02-10 09:48 | HP ---
DATE OF NOTE: 02/09/2017 MAIN REASON: Leg swelling, redness, and upper thigh wound nonhealing. HISTORY OF PRESENT ILLNESS: This is a 56-year-old male well-known with chronic venous stasis, histor y of DVT, [place] filters, has been recently discharged from rehab from [facility] because of c ellulitis in lower extremities, and also the patient noted mainly on the left leg, he also noted left leg deep wound in the buttock thigh area junction that was deep enough that takes several months to improve. There is still an open wound and still having problem with it. The patient takes pain medi cations for his chronic pain. According to him, he is off Neurontin, and he has no other complaint. No chest pain, no shortness of breath. He feels sick. He feels weak. He fell at home, could not g et up. His cellphone fell and he could not pick it up, and has trouble staying home. Denied any oth er complaints. He seems to be taking his medicines. Regarding Coumadin, we will check his INR. A q uestion of noncompliance is there. PAST MEDICAL HISTORY: 1. As I mentioned, the patient does have acute renal failure due to obstructive uropathy. He has be en off any Cozaar or any of these since then, and has been on Proscar. Doing okay, passing urine, hy dronephrosis in the past. He did well now. 2. Chronic venous stasis, chronic leg ulcer, recurrent cellulitis and infections. 3. Upper thigh on the back - both legs deep wounds that still need wound care. 4. Morbid obesity. 5. Diabetes. 6. Chronic pain, chronic back pain, chronic knee deformity, varus deformity, and knee replacements. 7. Chronic osteoarthritis. 8. Hypothyroidism. 9. Chronic COPD. 10. Pulmonary hypertension. 11. Obstructive sleep apnea. Refused BiPAP machine, and sleep study never been done by him, noncomp liance. 12. Hypertension. 13. History of DVT on Coumadin, noncompliant on Coumadin ____. 14. History of physical deconditioning. ALLERGIES: Seems no known allergies. SOCIAL HISTORY: He lives by himself. He has 2 daughters. ____, but lives by himself. His sister h elps him sometimes. MEDICATIONS: He does take at home Catapres 0.1 mg b.i.d., Colace. Coumadin, he takes 10 mg a day. He also takes Lasix 40 mg b.i.d., Lopressor 25 mg b.i.d., and he takes also nystatin powder. He take s oxycodone extended release 80 mg. He has been on every 6 hours, but would try to decrease it to tw ice a day. The patient does feel the pain. Percocet 2 tabs every 6 hours p.r.n., Proscar 5 mg, Pulm icort, Singulair 10 mg, Synthroid 75 mcg, and that is about it. REVIEW OF SYSTEMS: As in the present illness, dysuria, leg ulcers, leg edema, gait disorders, recurr ent falls, chronic cough, chronic pain. PHYSICAL EXAMINATION: Please be advised this note is on 02/09/2017. The patient was seen and evaluat ed. VITAL SIGNS: Temperature 97.9, heart rate 70, blood pressure 151/79, respirations 18, saturation 95% on room air. HEAD AND NECK: Normal. No JVD, no thyromegaly. CHEST: Clear, good air entry. CARDIAC: First and second sounds are normal. ABDOMEN: Obese, nontender. EXTREMITIES: There is left leg change in the color. There is superficial leg ulceration, large area on the back of the left leg, which has been wrapped with gauze, same is the right leg. There is als o a wound on the junction of buttock area to the thigh deep enough that it is more than 1 cm deep, an d that is still open and still painful to him. On the right leg, the same thing. There is a bandage on it. NEUROLOGIC: The patient moves all extremities. He is alert, awake, oriented x 3. LABORATORY STUDIES: White count 6.2, hemoglobin 11.4, hematocrit 34, platelets 183. Chemistry: Sod ium 139, potassium 4.4, chloride 96. Bicarb is 33, BUN 13, creatinine 0.9, blood sugar 122. Liver f unction test is normal. Troponin is negative. Urinalysis was negative, and PT/INR when he came in - PT 12.8, INR 1.19, and the PTT is not done. Also, the patient, when he came in, had a chest x-ray, which shows minor bibasilar atelectasis. Also, he had an EKG, which shows normal sinus rhythm, normal EKG. IMPRESSION AND PLAN: 1. A 56-year-old male came in with recurrent leg cellulitis, deep wound of the left leg and deep wou nd of the left thigh area, as well as the right thigh. There is weeping and drainage of the left low er extremity, venous stasis with skin discolorations and foul smelling. Also in addition, the patien t has frequent falls. He is very anxious to live by himself. We will admit the patient. We will ge t a podiatry consult for the lower extremities for local wound care and also get IV antibiotic sukhwinder farfan, infectious disease consult - Dr. Blanco, local wound care in addition to surgical consult f or the thigh wound and wound care. 2. Chronic obstructive pulmonary disease, deep venous thrombosis, history of being on Coumadin. We will adjust his PT/INR, Lovenox and Coumadin 15 mg. Repeat PT/INR daily, and we will monitor that. 3. Obstructive sleep apnea, chronic obstructive pulmonary disease, pulmonary consult. Dr. Santoyo pu t the patient on BiPAP for now 10/01, and will follow up with Dr. Santoyo. 4. The patient does have hypothyroidism, has borderline diabetics. He is off metformin, will contin ue insulin coverage. 5. Obstructive uropathy, history of renal failure. Continue Proscar. Follow up his lab tests. We will repeat labs in the morning. We will follow up clinically. The patient will need physical thera py, will need placement, possibly detention placement. We will discuss with the social media specialistharpreet his meds, follow up clinically. Yvon Gonzalez MD cc: [phone] TT: 02/10/2017 09:47:54 alex
[2017-02-10 09:51] LABS: INR 1.15 (0.93-1.08)
--- NOTE | 2017-02-10 10:26 | CP.PCM.CON ---
History of Present Illness - History of Present Illness History of Present Illness: Surgery Consult Note. Dr. Mast 56yo M with PMHx of Chronic leg ulcers, CHF, COPD, DVT s/p IVC filter on coumadin, HTN, DM, sleep apnea consulted for bilateral gluteal fold skin ulcers. Patient states that he is unsure when he started having skin breakdown. He states that his bilateral leg pain and swelling has been getting worse over the past couple weeks, unable to quantify timeline more clearly. Patient states that he has had decreased mobility over the past few months. Stays in bed most of the day and uses a wheelchair. States that he has gained 10-15lbs per year over the past 15 years. Denies any recent illness. Denies F/C. No N/V/D. No Abd Pain. No headache, no CP/SOB. No other complaints. PMD: Saleeb PMHx: Renal Failure, Chronic Leg Ulcer, CHF, COPD, DVT s/p IVC filter, HTN, DM, Sleep Apnea PSHx: Left Knee replacement x2, Right Ankle Fx Repair, Right Hip Fx Repair Family Hx: Brothers- Lung CA, Throat CA; Mother - Unknown CA, . Father - Heart Disease Social Hx: On Disability; Denies Tob, Denies ETOH, Denies illicit drug use NKDA Review of Systems - Review of Systems All systems: reviewed and no additional remarkable complaints except - Constitutional Constitutional: absent: Chills, Fever - Cardiovascular Cardiovascular: absent: Chest Pain, Dyspnea - Gastrointestinal Gastrointestinal: absent: Abdominal Pain, Nausea, Vomiting - Integumentary Integumentary: Lesions, Skin Pain, Skin Ulcer Past Patient History - Infectious Disease Hx of Infectious Diseases: MRSA, ESL - Tetanus Immunizations Tetanus Immunization: Unknown - Past Medical History & Family History Past Medical History?: Yes - Past Social History Smoking Status: Never Smoked - CARDIAC Hx Congestive Heart Failure: Yes Hx Hypertension: Yes Hx Peripheral Edema: Yes (+4 edema) - PULMONARY Hx Asthma: Yes Hx Chronic Obstructive Pulmonary Disease (COPD): Yes Hx Pneumonia: Yes Hx Pulmonary Embolism: Yes Hx Sleep Apnea: Yes - NEUROLOGICAL Hx Neurological Disorder: No - HEENT Hx HEENT Problems: No - RENAL Hx Chronic Kidney Disease: No - ENDOCRINE/METABOLIC Hx Hyperthyroidism: Yes Hx Hypothyroidism: Yes - HEMATOLOGICAL/ONCOLOGICAL Hx Blood Disorders: No - INTEGUMENTARY Hx Dermatological Problems: Yes Hx Cellulitis: Yes (BLE) Other/Comment: both leggs discolored - MUSCULOSKELETAL/RHEUMATOLOGICAL Hx Arthritis: Yes Hx Fractures: Yes - GASTROINTESTINAL Hx Gastrointestinal Disorders: Yes - GENITOURINARY/GYNECOLOGICAL Hx Genitourinary Disorders: No - PSYCHIATRIC Hx Depression: Yes Hx Substance Use: No - SURGICAL HISTORY Hx Orthopedic Surgery: Yes (bilateral knee replacement) Other/Comment: total left knee - 1998. right ankle screws - 1987. right hip jason - 1982 - ANESTHESIA Hx Anesthesia: Yes Hx Anesthesia Reactions: No Hx Malignant Hyperthermia: No Meds Allergies/Adverse Reactions: Allergies Allergy/AdvReac Type Severity Reaction Status Date / Time No Known Allergies Allergy Verified 02/08/17 22:09 - Medications Medications: Current Medications Arformoterol Tartrate (Brovana) 15 mcg IH [id number] [facility] Last Admin: 02/10/17 07:32 Dose: Not Given Budesonide (Pulmicort Respules) 0.5 mg IH [id number] [facility] Last Admin: 02/10/17 07:32 Dose: Not Given Clonidine HCl (Catapres) 0.1 mg PO BID [facility] Last Admin: 02/10/17 09:55 Dose: 0.1 mg Docusate Sodium (Colace) 100 mg PO TID [facility] Last Admin: 02/10/17 09:56 Dose: Not Given Enoxaparin Sodium (Lovenox) 80 mg SC Q12H [facility] PRN Reason: Protocol Last Admin: 02/09/17 21:49 Dose: 80 mg Finasteride (Proscar) 5 mg PO DAILY [facility] Last Admin: 02/10/17 09:48 Dose: 5 mg Furosemide (Lasix) 80 mg IVP Q8 [facility] Last Admin: 02/10/17 07:23 Dose: Not Given Vancomycin HCl (Vancomycin 1gm) 250 mls @ 167 mls/hr IVPB Q12H [facility] PRN Reason: Protocol Last Admin: 02/10/17 09:47 Dose: 167 mls/hr Meropenem 1g/NS 100mL IVPB (Meropenem 1g/Ns 100ml Ivpb) 100 mls @ 100 mls/hr IVPB Q8H [facility] Stop: 02/16/17 09:01 Last Admin: 02/10/17 08:38 Dose: 100 mls/hr Insulin Human Regular (Humulin R Med) 0 units SC ACHS [facility] PRN Reason: Protocol Last Admin: 02/10/17 07:49 Dose: Not Given Levothyroxine Sodium (Synthroid) 75 mcg PO ACB [facility] Last Admin: 02/10/17 08:11 Dose: 75 mcg Metoprolol Tartrate (Lopressor) 25 mg PO BID [facility] Last Admin: 02/10/17 09:55 Dose: 25 mg Montelukast Sodium (Singulair) 10 mg PO HS [facility] Last Admin: 02/09/17 21:49 Dose: 10 mg Mupirocin (Bactroban Ointment) 0 gm TOP BID [facility] Last Admin: 02/09/17 13:35 Dose: 1 applic Nystatin (Nystop Topical Powder) 0 gm TOP QSHIFT [facility] Last Admin: 02/10/17 07:49 Dose: 1 applic Oxycodone HCl (Oxycontin Extended Release Tab) 80 mg PO Q6H [facility] Last Admin: 02/10/17 09:48 Dose: 80 mg Oxycodone/Acetaminophen (Percocet 5/325 Mg Tab) 2 tab PO Q6H PRN PRN Reason: Pain, moderate (4-7) Stop: 02/12/17 08:12 Last Admin: 02/10/17 06:33 Dose: 2 tab Warfarin Sodium (Coumadin) 15 mg PO 1800 [facility] PRN Reason: Protocol Physical Exam - Constitutional Appears: Well, No Acute Distress Additional comments: Morbidly obese - Head Exam Head Exam: ATRAUMATIC, NORMAL INSPECTION, NORMOCEPHALIC - Eye Exam Eye Exam: EOMI, Normal appearance. absent: Scleral icterus - ENT Exam ENT Exam: Mucous Membranes Moist - Cardiovascular Exam Cardiovascular Exam: RRR. absent: JVD - GI/Abdominal Exam GI & Abdominal Exam: Soft. absent: Tenderness - Extremities Exam Additional comments: Right leg: right upper leg gluteal fold deep stage 4 decubitus ulcer with necrotic skin base. Approximatly 10cm x 3cm. Left leg: Left upper leg gluteal fold stage 2/3 decubitus ulcer. Approximately 8cm x 2cm. Bilateral lower extremity pretibial would venous stasis ulcers. - Neurological Exam Neurological exam: Alert, Oriented x3 - Psychiatric Exam Psychiatric exam: Anxious Results - Vital Signs Recent Vital Signs: Last Vital Signs Temp 98.1 F 02/10/17 07:46 Pulse 70 02/10/17 09:55 Resp 20 02/10/17 07:46 BP 164/93 H 02/10/17 09:55 Pulse Ox 97 02/10/17 07:46 - Labs Result Diagrams: 02/10/17 07:30 02/10/17 07:30 Labs: Laboratory Results - last 24 hr 02/09/17 02/09/17 02/09/17 07:22 11:26 16:15 WBC RBC Hgb Hct MCV MCH MCHC RDW Plt Count MPV Gran % Lymph % (Auto) [place] % (Auto) Eos % (Auto) Baso % (Auto) Gran # Lymph # [place] # Eos # Baso # PT INR APTT Sodium Potassium Chloride Carbon Dioxide Anion Gap BUN Creatinine Est GFR ( Amer) Est GFR (Non-Af Amer) POC Glucose (mg/dL) 93 109 170 H Random Glucose Calcium Magnesium Total Bilirubin AST ALT Alkaline Phosphatase Total Protein Albumin Globulin Albumin/Globulin Ratio 02/09/17 02/10/17 02/10/17 21:16 07:15 07:30 WBC 5.9 RBC 3.83 Hgb 11.1 L Hct 33.5 L MCV 87.5 MCH 29.0 MCHC 33.1 RDW 13.4 Plt Count 169 MPV 11.0 Gran % 58.3 Lymph % (Auto) 27.6 [place] % (Auto) 7.9 H Eos % (Auto) 5.9 H Baso % (Auto) 0.3 Gran # 3.46 Lymph # 1.6 [place] # 0.5 Eos # 0.4 Baso # 0.02 PT INR APTT 34.0 H Sodium 138 Potassium 4.1 Chloride 97 L Carbon Dioxide 34 H Anion Gap 11 BUN 13 Creatinine 1.1 Est GFR ( Amer) > 60 Est GFR (Non-Af Amer) > 60 POC Glucose (mg/dL) 178 H 84 Random Glucose 98 Calcium 9.0 Magnesium 1.9 Total Bilirubin 0.5 AST 25 ALT 25 Alkaline Phosphatase 117 Total Protein 7.8 Albumin 3.7 Globulin 4.2 Albumin/Globulin Ratio 0.9 L 02/10/17 09:30 WBC RBC Hgb Hct MCV MCH MCHC RDW Plt Count MPV Gran % Lymph % (Auto) [place] % (Auto) Eos % (Auto) Baso % (Auto) Gran # Lymph # [place] # Eos # Baso # PT 12.4 H INR 1.15 H APTT Sodium Potassium Chloride Carbon Dioxide Anion Gap BUN Creatinine Est GFR ( Amer) Est GFR (Non-Af Amer) POC Glucose (mg/dL) Random Glucose Calcium Magnesium Total Bilirubin AST ALT Alkaline Phosphatase Total Protein Albumin Globulin Albumin/Globulin Ratio Assessment & Plan - Assessment and Plan (Free Text) Assessment: 56yo M with PMHx of Chronic leg ulcers, CHF, COPD, DVT s/p filter on coumadin, DM with Decubitus ulcer to Right and Left gluteal folds. Right worse than left - Continue ABX as per ID: Merrem and Vanc - Blood Cxs NGTD at 24hrs - On chart review, Sacral would cx on 01/11 grew Staph Aureus - No Leukocytosis, Afebrile - Patient was offered surgical debridement today (02/10) at 4:30PM, pt refused and would like to consider going tomorrow. Would like to consult with his PMD. - Tentatively booked for OR at 7:30AM 02/11 - NPO after midnight - no indication to hold anticoagulation periop. Discussed case with Dr. Pro Coburn PGY1 surgery pager: [phone]
[2017-02-10] MEDS: Enoxaparin 80 mg Syringe SC SCH ×2 (11:13→21:43)
--- NOTE | 2017-02-10 13:12 | CP.PCM.PN ---
<Dipti Loyd - Last Filed: 02/10/17 13:08> Subjective - Date & Time of Evaluation Date of Evaluation: 02/10/17 Time of Evaluation: 13:09 - Subjective Subjective: 56 y/o male seen at bedside with attending Dr. Zavaleta for bilateral venous stasis ulcerations of the lower extremities. Patient states that he is unable to ambulate anymore because he is in too much pain. Patient states that he also developed a sacral ulcer while laying down at home. He says that he will be having surgery to debride the ulceration on his sacrum tomorrow. Patient states that he has a lot of pain and swelling in his legs. He denies n/f/v/c/d/sob. Objective - Vital Signs/Intake and Output Vital Signs (last 24 hours): Temp Pulse Resp BP Pulse Ox 98.1 F 70 20 164/93 H 97 02/10/17 07:46 02/10/17 09:55 02/10/17 07:46 02/10/17 09:55 02/10/17 07:46 Intake and Output: 02/10/17 02/10/17 06:59 18:59 Intake Total 2400 Output Total 4300 Balance -1900 - Medications Medications: Current Medications Arformoterol Tartrate (Brovana) 15 mcg IH [id number] [facility] Last Admin: 02/10/17 07:32 Dose: Not Given Budesonide (Pulmicort Respules) 0.5 mg IH [id number] [facility] Last Admin: 02/10/17 07:32 Dose: Not Given Clonidine HCl (Catapres) 0.1 mg PO BID [facility] Last Admin: 02/10/17 09:55 Dose: 0.1 mg Docusate Sodium (Colace) 100 mg PO TID [facility] Last Admin: 02/10/17 09:56 Dose: Not Given Enoxaparin Sodium (Lovenox) 80 mg SC Q12H [facility] PRN Reason: Protocol Last Admin: 02/10/17 11:13 Dose: 80 mg Finasteride (Proscar) 5 mg PO DAILY [facility] Last Admin: 02/10/17 09:48 Dose: 5 mg Furosemide (Lasix) 80 mg IVP Q8 [facility] Last Admin: 02/10/17 07:23 Dose: Not Given Vancomycin HCl (Vancomycin 1gm) 250 mls @ 167 mls/hr IVPB Q12H [facility] PRN Reason: Protocol Last Admin: 02/10/17 09:47 Dose: 167 mls/hr Meropenem 1g/NS 100mL IVPB (Meropenem 1g/Ns 100ml Ivpb) 100 mls @ 100 mls/hr IVPB Q8H [facility] Stop: 02/16/17 09:01 Last Admin: 02/10/17 08:38 Dose: 100 mls/hr Insulin Human Regular (Humulin R Med) 0 units SC ACHS [facility] PRN Reason: Protocol Last Admin: 02/10/17 11:35 Dose: Not Given Levothyroxine Sodium (Synthroid) 75 mcg PO ACB [facility] Last Admin: 02/10/17 08:11 Dose: 75 mcg Metoprolol Tartrate (Lopressor) 25 mg PO BID [facility] Last Admin: 02/10/17 09:55 Dose: 25 mg Montelukast Sodium (Singulair) 10 mg PO HS [facility] Last Admin: 02/09/17 21:49 Dose: 10 mg Mupirocin (Bactroban Ointment) 0 gm TOP BID [facility] Last Admin: 02/10/17 10:34 Dose: Not Given Nystatin (Nystop Topical Powder) 0 gm TOP QSHIFT [facility] Last Admin: 02/10/17 07:49 Dose: 1 applic Oxycodone HCl (Oxycontin Extended Release Tab) 80 mg PO Q6H [facility] Last Admin: 02/10/17 09:48 Dose: 80 mg Oxycodone/Acetaminophen (Percocet 5/325 Mg Tab) 2 tab PO Q6H [facility] PRN Reason: Pain, moderate (4-7) Stop: 02/12/17 08:12 Last Admin: 02/10/17 12:30 Dose: 2 tab Warfarin Sodium (Coumadin) 15 mg PO 1800 [facility] PRN Reason: Protocol - Labs Labs: 02/10/17 07:30 02/10/17 07:30 PT 12.4 Seconds (9.9-11.8) H 02/10/17 09:30 INR 1.15 (0.93-1.08) H 02/10/17 09:30 APTT 34.0 Seconds (23.7-30.8) H 02/10/17 07:30 - Constitutional Appears: Well, Non-toxic, No Acute Distress - Extremities Exam Additional comments: Vasc: nonpalpable pedal pulses due to edema b/l, TG warm to warm, CFT < 3 sec to all digits, +1 pitting edema Neuro: grossly diminished Derm: +1 pitting edema to legs bilateral, localized erythema to midcalf bilateral, no ascending cellulitis, superficial open lesions on the posterior aspect of left leg, medial aspect of right leg- granular base, no purulence, moderate serous drainage, no active bleeding, no undermining, no tracking, no probe to bone, moderate malodor ortho: pain on palpation of posterior and medial legs b/l - Neurological Exam Neurological Exam: Alert, Awake, Oriented x3 - Psychiatric Exam Psychiatric exam: Normal Affect, Normal Mood Assessment and Plan - Assessment and Plan (Free Text) Assessment: 56 y/o male with seen at bedside for bilateral venous stasis ulcerations Plan: patient evaluated and seen at bedside with attending Dr. Zavaleta labs and vitals reviewed; afebrile, WBC 5.9 continue IV abx cleansed legs with saline, applied bactroban, ABD, kerlix, YAYO bilaterally patient encouraged to begin walking again Rx multipodus offloading boots podiatry will continue to monitor while patient remains in house <Parish Zavaleta - Last Filed: 02/10/17 13:35> Objective - Vital Signs/Intake and Output Vital Signs (last 24 hours): Temp Pulse Resp BP Pulse Ox 98.1 F 70 20 164/93 H 97 02/10/17 07:46 02/10/17 09:55 02/10/17 07:46 02/10/17 09:55 02/10/17 07:46 Intake and Output: 02/10/17 02/10/17 06:59 18:59 Intake Total 2400 Output Total 4300 Balance -1900 - Medications Medications: Current Medications Arformoterol Tartrate (Brovana) 15 mcg IH [id number] [facility] Last Admin: 02/10/17 07:32 Dose: Not Given Budesonide (Pulmicort Respules) 0.5 mg IH [id number] [facility] Last Admin: 02/10/17 07:32 Dose: Not Given Clonidine HCl (Catapres) 0.1 mg PO BID [facility] Last Admin: 02/10/17 09:55 Dose: 0.1 mg Docusate Sodium (Colace) 100 mg PO TID [facility] Last Admin: 02/10/17 09:56 Dose: Not Given Enoxaparin Sodium (Lovenox) 80 mg SC Q12H [facility] PRN Reason: Protocol Last Admin: 02/10/17 11:13 Dose: 80 mg Finasteride (Proscar) 5 mg PO DAILY [facility] Last Admin: 02/10/17 09:48 Dose: 5 mg Furosemide (Lasix) 80 mg IVP Q8 [facility] Last Admin: 02/10/17 07:23 Dose: Not Given Vancomycin HCl (Vancomycin 1gm) 250 mls @ 167 mls/hr IVPB Q12H [facility] PRN Reason: Protocol Last Admin: 02/10/17 09:47 Dose: 167 mls/hr Meropenem 1g/NS 100mL IVPB (Meropenem 1g/Ns 100ml Ivpb) 100 mls @ 100 mls/hr IVPB Q8H [facility] Stop: 02/16/17 09:01 Last Admin: 02/10/17 08:38 Dose: 100 mls/hr Insulin Human Regular (Humulin R Med) 0 units SC ACHS [facility] PRN Reason: Protocol Last Admin: 02/10/17 11:35 Dose: Not Given Levothyroxine Sodium (Synthroid) 75 mcg PO ACB [facility] Last Admin: 02/10/17 08:11 Dose: 75 mcg Metoprolol Tartrate (Lopressor) 25 mg PO BID [facility] Last Admin: 02/10/17 09:55 Dose: 25 mg Montelukast Sodium (Singulair) 10 mg PO HS [facility] Last Admin: 02/09/17 21:49 Dose: 10 mg Mupirocin (Bactroban Ointment) 0 gm TOP BID [facility] Last Admin: 02/10/17 10:34 Dose: Not Given Nystatin (Nystop Topical Powder) 0 gm TOP QSHIFT [facility] Last Admin: 02/10/17 07:49 Dose: 1 applic Oxycodone HCl (Oxycontin Extended Release Tab) 80 mg PO Q6H [facility] Last Admin: 02/10/17 09:48 Dose: 80 mg Oxycodone/Acetaminophen (Percocet 5/325 Mg Tab) 2 tab PO Q6H PRN PRN Reason: Pain, moderate (4-7) Stop: 02/12/17 08:12 Last Admin: 02/10/17 12:30 Dose: 2 tab Warfarin Sodium (Coumadin) 15 mg PO 1800 [facility] PRN Reason: Protocol - Labs Labs: 02/10/17 07:30 02/10/17 07:30 PT 12.4 Seconds (9.9-11.8) H 02/10/17 09:30 INR 1.15 (0.93-1.08) H 02/10/17 09:30 APTT 34.0 Seconds (23.7-30.8) H 02/10/17 07:30 Attending/Attestation - Attestation I have personally seen and examined this patient.: Yes
--- NOTE | 2017-02-10 17:59 | CP.PCM.PN ---
Subjective - Date & Time of Evaluation Date of Evaluation: 02/10/17 Time of Evaluation: 10:55 - Subjective Subjective: Comfortable, less pain in the legs but worried about having a wound vacuum placed. No fevers overnight. Objective - Vital Signs/Intake and Output Vital Signs (last 24 hours): Temp Pulse Resp BP Pulse Ox 98 F 64 20 145/90 96 02/10/17 16:00 02/10/17 16:00 02/10/17 16:00 02/10/17 16:00 02/10/17 16:00 Intake and Output: 02/10/17 02/10/17 06:59 18:59 Intake Total 2400 Output Total 4300 Balance -1900 - Medications Medications: Current Medications Arformoterol Tartrate (Brovana) 15 mcg IH [id number] [facility] Last Admin: 02/10/17 07:32 Dose: Not Given Budesonide (Pulmicort Respules) 0.5 mg IH [id number] [facility] Last Admin: 02/10/17 07:32 Dose: Not Given Clonidine HCl (Catapres) 0.1 mg PO BID [facility] Last Admin: 02/10/17 09:55 Dose: 0.1 mg Docusate Sodium (Colace) 100 mg PO TID [facility] Last Admin: 02/10/17 14:01 Dose: Not Given Enoxaparin Sodium (Lovenox) 80 mg SC Q12H [facility] PRN Reason: Protocol Last Admin: 02/10/17 11:13 Dose: 80 mg Finasteride (Proscar) 5 mg PO DAILY [facility] Last Admin: 02/10/17 09:48 Dose: 5 mg Furosemide (Lasix) 80 mg IVP Q8 [facility] Last Admin: 02/10/17 14:05 Dose: Not Given Vancomycin HCl (Vancomycin 1gm) 250 mls @ 167 mls/hr IVPB Q12H [facility] PRN Reason: Protocol Last Admin: 02/10/17 09:47 Dose: 167 mls/hr Meropenem 1g/NS 100mL IVPB (Meropenem 1g/Ns 100ml Ivpb) 100 mls @ 100 mls/hr IVPB Q8H [facility] Stop: 02/16/17 09:01 Last Admin: 02/10/17 08:38 Dose: 100 mls/hr Insulin Human Regular (Humulin R Med) 0 units SC ACHS [facility] PRN Reason: Protocol Last Admin: 02/10/17 16:22 Dose: Not Given Levothyroxine Sodium (Synthroid) 75 mcg PO ACB [facility] Last Admin: 02/10/17 08:11 Dose: 75 mcg Metoprolol Tartrate (Lopressor) 25 mg PO BID [facility] Last Admin: 02/10/17 09:55 Dose: 25 mg Montelukast Sodium (Singulair) 10 mg PO HS [facility] Last Admin: 02/09/17 21:49 Dose: 10 mg Mupirocin (Bactroban Ointment) 0 gm TOP BID [facility] Last Admin: 02/10/17 10:34 Dose: Not Given Nystatin (Nystop Topical Powder) 0 gm TOP QSHIFT [facility] Last Admin: 02/10/17 16:13 Dose: 1 applic Oxycodone HCl (Oxycontin Extended Release Tab) 80 mg PO Q6H [facility] Last Admin: 02/10/17 16:11 Dose: 80 mg Oxycodone/Acetaminophen (Percocet 5/325 Mg Tab) 2 tab PO Q6H PRN PRN Reason: Pain, moderate (4-7) Stop: 02/12/17 08:12 Last Admin: 02/10/17 12:30 Dose: 2 tab Warfarin Sodium (Coumadin) 15 mg PO 1800 [facility] PRN Reason: Protocol - Labs Labs: 02/10/17 07:30 02/10/17 07:30 PT 12.4 Seconds (9.9-11.8) H 02/10/17 09:30 INR 1.15 (0.93-1.08) H 02/10/17 09:30 APTT 34.0 Seconds (23.7-30.8) H 02/10/17 07:30 - Constitutional Appears: Non-toxic, No Acute Distress - Head Exam Head Exam: NORMAL INSPECTION - ENT Exam ENT Exam: Mucous Membranes Moist - Neck Exam Neck Exam: absent: Lymphadenopathy, Meningismus - Respiratory Exam Respiratory Exam: Decreased Breath Sounds - Cardiovascular Exam Cardiovascular Exam: +S1, +S2 - GI/Abdominal Exam GI & Abdominal Exam: Soft. absent: Tenderness - Extremities Exam Additional comments: both legs with dry dressings in place Assessment and Plan - Assessment and Plan (Free Text) Plan: Assessment Consider skin and skin structure infection with bilateral leg infected ulcers in a patient with recurrent leg infections and venous stasis history of Skin and skin structure infection of the left lower extremity with Pseudomonas, Enterococcus and MRSA in a patient with recurrent left leg infection Morbid obesity with BMI of 43 DM HTN COPD hyopthyroidism bilateral lower extremity swelling due to venous stasis Osteoarthritis Chronic pain syndrome Plan continue Vancomycin and Meropenem day 2 pending wound cultures, blood cx; awaiting plan for placement of wound Vacuum Will continue to follow clinically
--- NOTE | 2017-02-10 19:05 | US ---
HISTORY: Leg pain and swelling. Evaluate for DVT PHYSICIAN(S): Que Burgess MD. TECHNIQUE: Duplex sonography and color-flow Doppler with graded compression were used to evaluate the deep venous systems of both lower extremities. The exam is extremely limited by body habitus and edema. The tibial veins not adequately evaluated. Limited visualization of the distal femoral veins is noted. FINDINGS: There appear to be chronic post phlebitic changes throughout the right femoral vein. The right femoral vein is not recannulized. The right common femoral vein and proximal right profunda femoral vein are patent. Limited images of the right popliteal vein are patent and partially compressible of post phlebitic changes. Similar chronic post phlebitic changes with obstruction are noted in the left femoral vein. The left common femoral vein and proximal left profunda femoral vein are patent. Limited images of the left popliteal vein are patent. 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 No obvious acute DVT. Very limited study.
--- NOTE | 2017-02-10 21:26 | PN ---
DATE: 02/10/2017 REFERRING PHYSICIAN: Dr. Gonzalez. SUBJECTIVE: The patient is lying in the bed, head at 45 degree. Still has some rhinitis, cough, prabhjot ar sputum. No chest pain, no nausea, no vomiting, no diarrhea. Continue to have drain of skin ulcer of the lower extremity with edema and erythema. OBJECTIVE: GENERAL: No acute distress. VITAL SIGNS: Temperature is 98, heart rate is 64, respiratory rate is 20, blood pressure 145/90, pul se ox 96% on room air. HEENT: Moist mucous membranes. Crowded airway. Mallampati score is 4. NECK: Short, thick neck. LUNGS: Scattered rhonchi and few wheezing. HEART: S1 and S2. ABDOMEN: Obese, soft, nontender. EXTREMITIES: He has an oozing ulcer of lower extremity with erythema, swelling and edema. NEUROLOGIC: Awake, alert, follows simple commands. MEDICATIONS: He is on Bactroban ointment to the affected area twice a day, Brovana 15 mcg inhaled tw ice a day, clonidine 0.1 mg twice a day, Colace 100 mg 3 times a day, Coumadin 15 mg will be given to day, insulin coverage, Lasix 80 mg IV q. 8 hours, metoprolol tartrate 25 mg twice a day, Lovenox 60 m g subQ q. 12 hours, meropenem 1 g IV q. 8 hours, OxyContin extended release 80 mg q. 6 hours, Percoce t 5/325 two tab q. 6 hours p.r.n., Proscar 5 mg daily, Pulmicort inhaled twice a day, Singulair 10 mg daily, Synthroid 75 mcg , vancomycin 1 g IV q. 12 hours. LABORATORY DATA: Shows hemoglobin 11.1, hematocrit 32.5, WBC 5.9, and platelet is 169. INR 1.15. S odium 138, potassium 4.1, chloride 97, bicarbonate 34, BUN 13, creatinine 1.1, glucose 98, calcium is 9.0, AST 25, ALT 25, alkaline phosphatase is 117. Albumin is 3.7. Microbiology: Blood cultures waggoner ve been negative. Urine culture, no growth. Leg culture is pending . IMPRESSION AND PLAN: Cellulitis and oozing ulcer of lower extremity, history of DVT, pulmonary embol ism, history of , chronic obstructive lung disease, obstructive sleep apnea syndrome, hypertensi on, diabetes, morbid obesity, chronic pain syndrome, opiate dependent. We will continue to encourage BiPAP use. The patient is noncompliant. Understands risk of respiratory failure on top of opiates and sleep apnea not using CPAP. Keep head elevated at 45 degrees. Continue inhaled bronchodilator. Continue diuretics, afterload weights and measures inspector. Antibiotics as per infectious diseases. Elevate lower extre mity. Gastric prophylaxis. INR in the morning. Thank you and we will follow with you. Siri Santoyo MD cc: [phone] TT: 02/10/2017 21:26:06 Confirmation # [id number] Dictation # [id number] cn
[2017-02-11] MEDS: Meropenem 1g/NS 100mL IVPB 100 ML IVPB SCH ×3 (01:56→16:12)
[2017-02-11] MEDS: oxyCODONE 80 mg ER Tab (oxyCONTIN) PO SCH ×4 (03:36→21:45)
[2017-02-11] MEDS: Oxycodone/Acetaminophen 5/325 mg Tab PO PRN ×3 (05:48→21:47)
[2017-02-11] MEDS: Arformoterol 15 mcg/2 ml Inh Sol IH SCH ×2 (07:41→20:29)
[2017-02-11] MEDS: Budesonide 0.5 mg/2 ml Inhal Susp UD IH SCH ×2 (07:42→20:29)
[2017-02-11 07:43] LABS: INR 1.25 (0.93-1.08); PARTIAL THROMBOPLASTIN TIME 35.7 Seconds (23.7-30.8)
--- NOTE | 2017-02-11 09:24 | CP.PCM.PN ---
Subjective - Date & Time of Evaluation Date of Evaluation: 02/11/17 Time of Evaluation: 09:20 - Subjective Subjective: Surgery: Dr. Mast Pt seen and examined. Resting comfortably in bed. No complaints. Wound vac was applied to R gluteal crease. Objective - Vital Signs/Intake and Output Vital Signs (last 24 hours): Temp Pulse Resp BP Pulse Ox 97.6 F 62 18 171/90 H 98 02/11/17 07:55 02/11/17 07:55 02/11/17 07:55 02/11/17 07:55 02/11/17 07:55 Intake and Output: 02/11/17 02/11/17 06:59 18:59 Intake Total 1430 Output Total 800 Balance 630 - Medications Medications: Current Medications Arformoterol Tartrate (Brovana) 15 mcg IH [id number] [facility] Last Admin: 02/11/17 07:41 Dose: Not Given Budesonide (Pulmicort Respules) 0.5 mg IH [id number] [facility] Last Admin: 02/11/17 07:42 Dose: Not Given Clonidine HCl (Catapres) 0.1 mg PO BID [facility] Last Admin: 02/10/17 18:23 Dose: 0.1 mg Docusate Sodium (Colace) 100 mg PO TID [facility] Last Admin: 02/10/17 18:23 Dose: Not Given Enoxaparin Sodium (Lovenox) 80 mg SC Q12H [facility] PRN Reason: Protocol Last Admin: 02/10/17 21:43 Dose: 80 mg Finasteride (Proscar) 5 mg PO DAILY [facility] Last Admin: 02/10/17 09:48 Dose: 5 mg Furosemide (Lasix) 80 mg IVP Q8 [facility] Last Admin: 02/11/17 05:47 Dose: Not Given Vancomycin HCl (Vancomycin 1gm) 250 mls @ 167 mls/hr IVPB Q12H [facility] PRN Reason: Protocol Last Admin: 02/10/17 21:43 Dose: 167 mls/hr Meropenem 1g/NS 100mL IVPB (Meropenem 1g/Ns 100ml Ivpb) 100 mls @ 100 mls/hr IVPB Q8H [facility] Stop: 02/16/17 09:01 Last Admin: 02/11/17 01:56 Dose: 100 mls/hr Insulin Human Regular (Humulin R Med) 0 units SC ACHS [facility] PRN Reason: Protocol Last Admin: 02/10/17 22:00 Dose: Not Given Levothyroxine Sodium (Synthroid) 75 mcg PO ACB [facility] Last Admin: 02/10/17 08:11 Dose: 75 mcg Metoprolol Tartrate (Lopressor) 25 mg PO BID [facility] Last Admin: 02/10/17 18:23 Dose: 25 mg Montelukast Sodium (Singulair) 10 mg PO HS [facility] Last Admin: 02/10/17 21:43 Dose: 10 mg Mupirocin (Bactroban Ointment) 0 gm TOP BID [facility] Last Admin: 02/10/17 18:24 Dose: Not Given Nystatin (Nystop Topical Powder) 0 gm TOP QSHIFT [facility] Last Admin: 02/10/17 23:41 Dose: 1 applic Oxycodone HCl (Oxycontin Extended Release Tab) 80 mg PO Q6H [facility] Last Admin: 02/11/17 03:36 Dose: 80 mg Oxycodone/Acetaminophen (Percocet 5/325 Mg Tab) 2 tab PO Q6H [facility]N PRN Reason: Pain, moderate (4-7) Stop: 02/12/17 08:12 Last Admin: 02/11/17 05:48 Dose: 2 tab Warfarin Sodium (Coumadin) 15 mg PO 1800 [facility] PRN Reason: Protocol Last Admin: 02/10/17 18:22 Dose: 15 mg - Labs Labs: 02/10/17 07:30 02/10/17 07:30 PT 13.5 Seconds (9.9-11.8) H 02/11/17 07:00 INR 1.25 (0.93-1.08) H 02/11/17 07:00 APTT 35.7 Seconds (23.7-30.8) H 02/11/17 07:00 - Constitutional Appears: Non-toxic, No Acute Distress - Head Exam Head Exam: ATRAUMATIC, NORMOCEPHALIC - Eye Exam Eye Exam: EOMI. absent: Scleral icterus - ENT Exam ENT Exam: Mucous Membranes Moist - Neck Exam Neck Exam: Full ROM - Respiratory Exam Respiratory Exam: NORMAL BREATHING PATTERN. absent: Respiratory Distress - GI/Abdominal Exam Additional comments: morbidly obese - Extremities Exam Additional comments: chronic skin changes b/l LE. R gluteal crease, stage III decub, ~10x2cm L gluteal crease, stage II decub, 3x1cm Assessment and Plan - Assessment and Plan (Free Text) Assessment: 56M w. B/L gluteal crease decubs -wound vac applied to R gluteal crease, will change Q3D -L gluteal crease, medihoney and optifoam dressing changes daily -c/w abx -LE management per podiatry -c/w current medical management -d/w attending Maria De Jesus PGY2
[2017-02-11] MEDS: Nystatin 100,000 Units/gm Topical Pow(15 gm) TOP SCH ×3 (10:08→23:30)
[2017-02-11] MEDS: Insulin Reg-MEDIUM-Coverage SC SCH ×4 (10:09→22:30)
[2017-02-11] MEDS: Vancomycin 1gm in NS 250ml 250 ML IVPB SCH ×2 (10:10→23:46)
[2017-02-11] MEDS: Levothyroxine 75 MCG TAB PO SCH (10:10)
[2017-02-11] MEDS: Enoxaparin 80 mg Syringe SC SCH ×2 (10:13→21:43)
--- NOTE | 2017-02-11 10:22 | PN ---
DATE: 02/10/2017 The patient seems comfortable. His leg is elevated. He is lying on his side. He is seen by Dr. Juancarlos alvarez, surgical consult, and Dr. Daniels, wound care and podiatry. He will have his wound dressing c hanged today. Currently on IV antibiotic, vancomycin. The patient has no new complaint. PHYSICAL EXAMINATION: VITAL SIGNS: Temperature 98, heart rate 64, blood pressure 140/90, respirations 20, saturation 96%. HEAD AND NECK: Normal. No JVD, no thyromegaly. CHEST: Clear with air entry. CARDIAC: First and second sounds are normal. ABDOMEN: Obese, nontender. EXTREMITIES: There is edema bilaterally and both legs are wrapped after wound dressing has been hebert ged. Both upper thigh to buttock area junction, there is transverse deep wound on both areas. Steri le, dry dressing has been changed. NEUROLOGIC: The patient is normal. Moves all extremities with no problem. No deficits. LABORATORY DATA: White count 5.9, hemoglobin 11.1, hematocrit 33.5, platelets 169. Chemistry shows sodium 138, potassium 4.1, chloride 97, bicarb 34, BUN 15, creatinine 1.1. Liver function test is no rmal. His blood sugar is 121, 130. His urine was negative. His PT/INR on the was 1.15. PT 12 .4, his INR is 1.15. IMPRESSION AND PLAN: 1. Cellulitis both lower extremities and upper thigh deep wound infection. Continue surgical and po diatry evaluations. Wound VAC has been introduced to the upper thigh wounds by Dr. Mast. Will shara scuss with him further. Continue local wound care. Continue IV vancomycin. 2. Chronic obstructive pulmonary disease, obstructive sleep apnea. The patient is noncompliant with sleep apnea and outpatient on doing the test; however, we continue BiPAP here while he sleeps. 3. Chronic deep venous thrombosis, Henna filter. PT/INR nontherapeutic. Continue Lovenox. Cur rently will get Coumadin 15 mg today and will repeat PT/INR. 4. Hypertension. Continue Lopressor. Would add Norvasc 5 mg and hydralazine 10 mg 4 times a day. 5. History of renal failure, obstructive uropathy. Continue Proscar. The patient will not get any ARBs or YAYO inhibitors. We will hold off on any of these because of history of renal failure. We wi ll continue other medications. 6. Hypothyroidism. 7. Morbid obesity. 8. Chronic back pain. 9. Chronic osteoarthritis disease. 10. Chronic obstructive pulmonary disease. PLAN: Continue Brovana, Pulmicort, Bactroban, nebulizer treatment and follow up clinically. Continu e oxycodone and OxyContin as prescribed. Continue current treatment. The patient has been discussed to get him into a fci because of his disabilities with comorbid illnesses. The patient wou ld benefit from fci. Yvon Gonzalez MD cc: [phone] TT: 02/11/2017 10:21:19 Confirmation # [id number] Dictation # [id number] devang
--- NOTE | 2017-02-11 15:29 | PN ---
DATE: 02/11/2017 REFERRING PHYSICIAN: Dr. Gonzalez SUBJECTIVE: He is lying in the bed on his right side. Has a wound VAC on his sacral ulcer. Cough a nd shortness of breath is improved. No sputum production. Does not use CPAP/BiPAP. No nausea, no v omiting, no diarrhea. Slightly decreased leg swelling and ulcers. Has Steven wraps now. OBJECTIVE: GENERAL: No acute distress. VITAL SIGNS: Temp is 98, heart rate 62, respiratory rate is 18, blood pressure 171/90, pulse ox 98% on room air. HEENT: Moist mucous membranes. Crowded airway. Mallampati score is 4. NECK: Supple. No JVD. LUNGS: Has a fair airflow with few rhonchi. HEART: S1, S2. ABDOMEN: Soft, nontender. No organomegaly. EXTREMITIES: Has Steven wraps on lower extremity. Still has oozing ulcer and edema. Has a wound VAC o n the sacral wound. NEUROLOGIC: Awake, alert, follows simple command. MEDICATIONS: He is on hydralazine 10 mg q.i.d., Bactroban ointment to affected area twice a day, Bro mitzi 15 mcg inhaled twice a day, clonidine 0.1 mg twice a day, Colace 100 mg 3 times a day, Coumadin 15 mg was given yesterday, insulin coverage, Lasix 80 mg q.8 hours, metoprolol tartrate 25 mg twice a day, Lovenox 80 mg q.12 hours, meropenem 1 g IV q.8 hours, Norvasc 5 mg daily, nystatin affected are a q. shift, OxyContin extended release 80 mg q.6 hours, Percocet 5/325 two tabs q.6 hours p.r.n. for pain, Proscar 5 mg daily, Pulmicort inhaled twice a day, Singulair 10 mg daily, Synthroid 75 mcg da zina, vancomycin 1 gram IV q.12 hours. LABORATORY DATA: Reviewed. INR this morning 1.25. PTT is 36. Blood sugar 66. Leg wound has gram- negative and gram-positive cocci. IMPRESSION AND PLAN: Cellulitis and oozing of ulcers of the lower extremity. Also has a sacral decu biti requiring wound vacuum assisted closure, deep venous thrombosis, pulmonary embolism, history of obstructive lung disease, obstructive sleep apnea syndrome, hypertension, diabetes, morbid obesity, c hronic pain syndrome, opiate dependent. Continue to encourage continuous positive airway pressure/bi level positive airway pressure. Keep head elevated at 45 degree. Careful with sedation. Continue a nticoagulation. Continue antibiotics. Wound vacuum assisted closure on the sacral wound. Fall prec aution. Followup electrolyte in the morning. Thank you and we will follow with you. Siri Santoyo MD cc: [phone] TT: 02/11/2017 15:28:22 Confirmation # [id number] Dictation # [id number] sn
--- NOTE | 2017-02-11 17:18 | CP.PCM.PN ---
<Dipti Loyd - Last Filed: 02/11/17 17:14> Subjective - Date & Time of Evaluation Date of Evaluation: 02/11/17 Time of Evaluation: 17:15 - Subjective Subjective: 56 y/o male seen at bedside with attending Dr. Daniels for bilateral venous stasis ulcerations of the lower extremities. Patient states that he is unable to ambulate anymore because he is in too much pain. Patient states that he also developed a sacral ulcer while laying down at home, the general surgery team put a wound vac on the ulceration. Patient states that he has a lot of pain and swelling in his legs. He denies n/f/v/c/d/sob. Objective - Vital Signs/Intake and Output Vital Signs (last 24 hours): Temp Pulse Resp BP Pulse Ox 98.7 F 60 18 125/74 96 02/11/17 16:00 02/11/17 16:00 02/11/17 16:00 02/11/17 16:00 02/11/17 16:00 Intake and Output: 02/11/17 02/11/17 06:59 18:59 Intake Total 1430 960 Output Total 800 850 Balance 630 110 - Medications Medications: Current Medications Amlodipine Besylate (Norvasc) 5 mg PO DAILY [facility] Last Admin: 02/11/17 10:13 Dose: 5 mg Arformoterol Tartrate (Brovana) 15 mcg IH [id number] [facility] Last Admin: 02/11/17 07:41 Dose: Not Given Budesonide (Pulmicort Respules) 0.5 mg IH [id number] [facility] Last Admin: 02/11/17 07:42 Dose: Not Given Clonidine HCl (Catapres) 0.1 mg PO BID [facility] Last Admin: 02/11/17 10:09 Dose: 0.1 mg Docusate Sodium (Colace) 100 mg PO TID [facility] Last Admin: 02/11/17 15:00 Dose: Not Given Enoxaparin Sodium (Lovenox) 80 mg SC Q12H [facility] PRN Reason: Protocol Last Admin: 02/11/17 10:13 Dose: 80 mg Finasteride (Proscar) 5 mg PO DAILY [facility] Last Admin: 02/11/17 10:14 Dose: 5 mg Furosemide (Lasix) 80 mg PO Q8H [facility] Last Admin: 02/11/17 14:42 Dose: 80 mg Hydralazine HCl (Apresoline) 10 mg PO QID [facility] Last Admin: 02/11/17 15:00 Dose: 10 mg Vancomycin HCl (Vancomycin 1gm) 250 mls @ 167 mls/hr IVPB Q12H [facility] PRN Reason: Protocol Last Admin: 02/11/17 10:10 Dose: 167 mls/hr Meropenem 1g/NS 100mL IVPB (Meropenem 1g/Ns 100ml Ivpb) 100 mls @ 100 mls/hr IVPB Q8H [facility] Stop: 02/16/17 09:01 Last Admin: 02/11/17 16:12 Dose: 100 mls/hr Insulin Human Regular (Humulin R Med) 0 units SC ACHS [facility] PRN Reason: Protocol Last Admin: 02/11/17 12:00 Dose: Not Given Levothyroxine Sodium (Synthroid) 75 mcg PO ACB [facility] Last Admin: 02/11/17 10:10 Dose: 75 mcg Metoprolol Tartrate (Lopressor) 25 mg PO BID [facility] Last Admin: 02/11/17 10:08 Dose: 25 mg Montelukast Sodium (Singulair) 10 mg PO HS [facility] Last Admin: 02/10/17 21:43 Dose: 10 mg Mupirocin (Bactroban Ointment) 0 gm TOP BID [facility] Last Admin: 02/11/17 10:09 Dose: 1 applic Nystatin (Nystop Topical Powder) 0 gm TOP QSHIFT [facility] Last Admin: 02/11/17 10:08 Dose: 1 applic Oxycodone HCl (Oxycontin Extended Release Tab) 80 mg PO Q6H [facility] Last Admin: 02/11/17 16:12 Dose: 80 mg Oxycodone/Acetaminophen (Percocet 5/325 Mg Tab) 2 tab PO Q6H PRN PRN Reason: Pain, moderate (4-7) Stop: 02/12/17 08:12 Last Admin: 02/11/17 15:22 Dose: 2 tab Warfarin Sodium (Coumadin) 15 mg PO 1800 [facility] PRN Reason: Protocol Last Admin: 02/10/17 18:22 Dose: 15 mg - Labs Labs: 02/10/17 07:30 02/10/17 07:30 PT 13.5 Seconds (9.9-11.8) H 02/11/17 07:00 INR 1.25 (0.93-1.08) H 02/11/17 07:00 APTT 35.7 Seconds (23.7-30.8) H 02/11/17 07:00 - Constitutional Appears: Well, Non-toxic, No Acute Distress - Extremities Exam Additional comments: Vasc: nonpalpable pedal pulses due to edema b/l, TG warm to warm, CFT < 3 sec to all digits, +1 pitting edema Neuro: grossly diminished Derm: +1 pitting edema to legs bilateral, localized erythema to midcalf bilateral, no ascending cellulitis, superficial open lesions on the posterior aspect of left leg, medial aspect of right leg- granular base, no purulence, moderate serous drainage, no active bleeding, no undermining, no tracking, no probe to bone, moderate malodor ortho: pain on palpation of posterior and medial legs b/l - Neurological Exam Neurological Exam: Alert, Awake, Oriented x3 - Psychiatric Exam Psychiatric exam: Normal Affect, Normal Mood Assessment and Plan - Assessment and Plan (Free Text) Assessment: 56 y/o male with seen at bedside for bilateral venous stasis ulcerations Plan: patient evaluated and seen at bedside with attending Dr. Daniels labs and vitals reviewed; afebrile continue IV abx cleansed legs with saline, applied xeroform, ABD, kerlix, YAYO bilaterally patient encouraged to begin walking again Rx multipodus offloading boots wound cx: gram negative jason, gram positive cocci podiatry will continue to monitor while patient remains in house <Preeti Daniels - Last Filed: 02/13/17 12:58> Objective - Vital Signs/Intake and Output Vital Signs (last 24 hours): Temp Pulse Resp BP Pulse Ox 97.5 F L 68 20 135/72 94 L 02/12/17 16:00 02/12/17 16:00 02/12/17 16:00 02/12/17 16:00 02/12/17 16:00 - Labs Labs: 02/12/17 07:00 02/12/17 07:00 PT 14.7 Seconds (9.9-11.8) H 02/12/17 07:00 INR 1.36 (0.93-1.08) H 02/12/17 07:00 APTT 38.7 Seconds (23.7-30.8) H 02/12/17 07:00 Attending/Attestation - Attestation I have personally seen and examined this patient.: Yes I have fully participated in the care of the patient.: Yes I have reviewed all pertinent clinical information, including history, physical exam and plan: Yes
--- NOTE | 2017-02-11 18:13 | CP.PCM.PN ---
Subjective - Date & Time of Evaluation Date of Evaluation: 02/11/17 Time of Evaluation: 09:40 - Subjective Subjective: Comfortable in bed, still with leg pain but better. No fevers. Wound vacuum placed yesterday. Objective - Vital Signs/Intake and Output Vital Signs (last 24 hours): Temp Pulse Resp BP Pulse Ox 98.7 F 60 18 125/74 96 02/11/17 16:00 02/11/17 16:00 02/11/17 16:00 02/11/17 16:00 02/11/17 16:00 Intake and Output: 02/11/17 02/11/17 06:59 18:59 Intake Total 1430 960 Output Total 800 850 Balance 630 110 - Medications Medications: Current Medications Amlodipine Besylate (Norvasc) 5 mg PO DAILY [facility] Last Admin: 02/11/17 10:13 Dose: 5 mg Arformoterol Tartrate (Brovana) 15 mcg IH [id number] [facility] Last Admin: 02/11/17 07:41 Dose: Not Given Budesonide (Pulmicort Respules) 0.5 mg IH [id number] [facility] Last Admin: 02/11/17 07:42 Dose: Not Given Clonidine HCl (Catapres) 0.1 mg PO BID [facility] Last Admin: 02/11/17 10:09 Dose: 0.1 mg Docusate Sodium (Colace) 100 mg PO TID [facility] Last Admin: 02/11/17 15:00 Dose: Not Given Enoxaparin Sodium (Lovenox) 80 mg SC Q12H [facility] PRN Reason: Protocol Last Admin: 02/11/17 10:13 Dose: 80 mg Finasteride (Proscar) 5 mg PO DAILY [facility] Last Admin: 02/11/17 10:14 Dose: 5 mg Furosemide (Lasix) 80 mg PO Q8H [facility] Last Admin: 02/11/17 14:42 Dose: 80 mg Hydralazine HCl (Apresoline) 10 mg PO QID [facility] Last Admin: 02/11/17 15:00 Dose: 10 mg Vancomycin HCl (Vancomycin 1gm) 250 mls @ 167 mls/hr IVPB Q12H [facility] PRN Reason: Protocol Last Admin: 02/11/17 10:10 Dose: 167 mls/hr Meropenem 1g/NS 100mL IVPB (Meropenem 1g/Ns 100ml Ivpb) 100 mls @ 100 mls/hr IVPB Q8H [facility] Stop: 02/16/17 09:01 Last Admin: 02/11/17 16:12 Dose: 100 mls/hr Insulin Human Regular (Humulin R Med) 0 units SC ACHS [facility] PRN Reason: Protocol Last Admin: 02/11/17 17:00 Dose: Not Given Levothyroxine Sodium (Synthroid) 75 mcg PO ACB [facility] Last Admin: 02/11/17 10:10 Dose: 75 mcg Metoprolol Tartrate (Lopressor) 25 mg PO BID [facility] Last Admin: 02/11/17 10:08 Dose: 25 mg Montelukast Sodium (Singulair) 10 mg PO HS [facility] Last Admin: 02/10/17 21:43 Dose: 10 mg Mupirocin (Bactroban Ointment) 0 gm TOP BID [facility] Last Admin: 02/11/17 10:09 Dose: 1 applic Nystatin (Nystop Topical Powder) 0 gm TOP QSHIFT [facility] Last Admin: 02/11/17 15:00 Dose: 1 applic Oxycodone HCl (Oxycontin Extended Release Tab) 80 mg PO Q6H [facility] Last Admin: 02/11/17 16:12 Dose: 80 mg Oxycodone/Acetaminophen (Percocet 5/325 Mg Tab) 2 tab PO Q6H [facility] PRN Reason: Pain, moderate (4-7) Stop: 02/12/17 08:12 Last Admin: 02/11/17 15:22 Dose: 2 tab Warfarin Sodium (Coumadin) 15 mg PO 1800 [facility] PRN Reason: Protocol Last Admin: 02/10/17 18:22 Dose: 15 mg - Labs Labs: 02/10/17 07:30 02/10/17 07:30 PT 13.5 Seconds (9.9-11.8) H 02/11/17 07:00 INR 1.25 (0.93-1.08) H 02/11/17 07:00 APTT 35.7 Seconds (23.7-30.8) H 02/11/17 07:00 - Constitutional Appears: Non-toxic, No Acute Distress - Head Exam Head Exam: NORMAL INSPECTION - ENT Exam ENT Exam: Mucous Membranes Moist - Neck Exam Neck Exam: absent: Lymphadenopathy, Meningismus - Respiratory Exam Respiratory Exam: Decreased Breath Sounds - Cardiovascular Exam Cardiovascular Exam: +S1, +S2 - GI/Abdominal Exam GI & Abdominal Exam: Soft. absent: Tenderness - Extremities Exam Additional comments: both legs with dry dressings in place Assessment and Plan - Assessment and Plan (Free Text) Plan: Assessment Consider skin and skin structure infection with bilateral leg infected ulcers in a patient with recurrent leg infections and venous stasis, growing gram positive cocci S/P wound vacuum placement for upper thigh wounds POD #1 history of Skin and skin structure infection of the left lower extremity with Pseudomonas, Enterococcus and MRSA in a patient with recurrent left leg infection Morbid obesity with BMI of 43 DM HTN COPD hyopthyroidism bilateral lower extremity swelling due to venous stasis Osteoarthritis Chronic pain syndrome Plan continue Vancomycin and Meropenem day 3 pending wound cultures, blood cx Will continue to follow clinically
--- NOTE | 2017-02-11 21:39 | PN ---
DATE: 02/11/2017 A 56-year-old male. The patient was seen today, 02/11/2017. He is comfortable. He is still having wound care; need more antibiotic, wound VAC, and long-term antibiotics and rehab. The patient in no distress. His PT/INR still subtherapeutic. Discussed with the patient his clinica l conditions and the need for long-term therapy. PHYSICAL EXAMINATION: Today temperature 97.6, heart rate 62, blood pressure is 171/90, respiration 18, saturation 98%. HEAD AND NECK EXAMINATION: Normal. No JVD, no thyromegaly. CHEST EXAMINATION: Clear, good entry. CARDIAC: First sound, second sound normal. ABDOMEN: Obese, nontender. EXTREMITIES: There is edema bilateral. Both legs are wrapped with gauze. There is dark colored ski n below the knee all the way down to his toes. He also has transverse wound between his buttock and thigh area all the way in that area, and it is deep wounds. NEUROLOGICALLY: Normal. LABORATORIES: White count 5.9, hemoglobin 11.1, hematocrit 33.5, platelets 169. Chemistry noted for sodium 138, potassium 4.1, chloride 97, bicarb 34, BUN 13, creatinine 1.1. Chemistry is normal. Bl ood sugar 121. PT 13.5, INR 1.25. IMPRESSION AND PLAN: 1. Cellulitis lower extremities, left more than right. Continue wound care. Continue IV vancomycin. Will repeat basic metabolic panel in the morning, and PT/INR. Continue IV vanco. 2. History of chronic deep vein thrombosis, Henna filter. Continue , continue Coumadin. R epeat PT/INR tomorrow. 3. Hypertension seems uncontrolled. Will add hydralazine plus Norvasc 5 mg, and monitor blood pressu re on a regular basis. 4. Obstructive sleep apnea, chronic obstructive pulmonary disease, history of congestive , espec ially right-sided, and bilateral leg edema. Will continue Lasix. Will switch the Lasix to p.o. and continue current therapy. Continue BiPAP and follow up clinically. 5. Chronic back pain, chronic osteoarthritis. Continue narcotic, OxyContin plus oxycodone, and follo w up clinically. 6. Hypothyroidism. The patient currently getting levothyroxine. 7. History of prostate enlargement. 8. Hydronephrosis. Continue Proscar. Seems doing okay. 9. Also mild diabetes. Continue insulin coverage and will follow up clinically. Yvon Gonzalez MD cc: [phone] TT: 02/11/2017 21:38:44 Confirmation # [id number] Dictation # [id number] alex
--- NOTE | 2017-02-12 01:23 | CP.PCM.PN ---
Subjective - Date & Time of Evaluation Date of Evaluation: 02/12/17 Time of Evaluation: 01:23 - Subjective Subjective: #22 angiocath was inserted in right arm. Dx:Poor venous access. Objective - Vital Signs/Intake and Output Vital Signs (last 24 hours): Temp Pulse Resp BP Pulse Ox 98.7 F 67 18 148/85 96 02/11/17 16:00 02/11/17 21:45 02/11/17 16:00 02/11/17 21:45 02/11/17 16:00 Intake and Output: 02/11/17 02/12/17 18:59 06:59 Intake Total 960 960 Output Total 850 900 Balance 110 60 - Medications Medications: Current Medications Amlodipine Besylate (Norvasc) 5 mg PO DAILY [facility] Last Admin: 02/11/17 10:13 Dose: 5 mg Arformoterol Tartrate (Brovana) 15 mcg IH [id number] [facility] Last Admin: 02/11/17 20:29 Dose: Not Given Budesonide (Pulmicort Respules) 0.5 mg IH [id number] [facility] Last Admin: 02/11/17 20:29 Dose: Not Given Clonidine HCl (Catapres) 0.1 mg PO BID [facility] Last Admin: 02/11/17 18:33 Dose: Not Given Docusate Sodium (Colace) 100 mg PO TID [facility] Last Admin: 02/11/17 18:14 Dose: Not Given Enoxaparin Sodium (Lovenox) 80 mg SC Q12H [facility] PRN Reason: Protocol Last Admin: 02/11/17 21:43 Dose: 80 mg Finasteride (Proscar) 5 mg PO DAILY [facility] Last Admin: 02/11/17 10:14 Dose: 5 mg Furosemide (Lasix) 80 mg PO Q8H [facility] Last Admin: 02/11/17 21:44 Dose: 80 mg Hydralazine HCl (Apresoline) 10 mg PO QID [facility] Last Admin: 02/11/17 21:45 Dose: 10 mg Vancomycin HCl (Vancomycin 1gm) 250 mls @ 167 mls/hr IVPB Q12H [facility] PRN Reason: Protocol Last Admin: 02/11/17 23:46 Dose: 167 mls/hr Meropenem 1g/NS 100mL IVPB (Meropenem 1g/Ns 100ml Ivpb) 100 mls @ 100 mls/hr IVPB Q8H [facility] Stop: 02/16/17 09:01 Last Admin: 02/11/17 16:12 Dose: 100 mls/hr Insulin Human Regular (Humulin R Med) 0 units SC ACHS [facility] PRN Reason: Protocol Last Admin: 02/11/17 22:30 Dose: Not Given Levothyroxine Sodium (Synthroid) 75 mcg PO ACB [facility] Last Admin: 02/11/17 10:10 Dose: 75 mcg Metoprolol Tartrate (Lopressor) 25 mg PO BID [facility] Last Admin: 02/11/17 18:13 Dose: 25 mg Montelukast Sodium (Singulair) 10 mg PO HS [facility] Last Admin: 02/11/17 21:46 Dose: 10 mg Mupirocin (Bactroban Ointment) 0 gm TOP BID [facility] Last Admin: 02/11/17 18:14 Dose: Not Given Nystatin (Nystop Topical Powder) 0 gm TOP QSHIFT [facility] Last Admin: 02/11/17 23:30 Dose: 1 applic Oxycodone HCl (Oxycontin Extended Release Tab) 80 mg PO Q6H [facility] Last Admin: 02/11/17 21:45 Dose: 80 mg Oxycodone/Acetaminophen (Percocet 5/325 Mg Tab) 2 tab PO Q6H [facility] PRN Reason: Pain, moderate (4-7) Stop: 02/12/17 08:12 Last Admin: 02/11/17 21:47 Dose: 2 tab Warfarin Sodium (Coumadin) 15 mg PO 1800 [facility] PRN Reason: Protocol Last Admin: 02/11/17 18:13 Dose: 15 mg - Labs Labs: 02/10/17 07:30 02/10/17 07:30 PT 13.5 Seconds (9.9-11.8) H 02/11/17 07:00 INR 1.25 (0.93-1.08) H 02/11/17 07:00 APTT 35.7 Seconds (23.7-30.8) H 02/11/17 07:00
[2017-02-12] MEDS: Meropenem 1g/NS 100mL IVPB 100 ML IVPB SCH ×3 (02:10→18:54)
[2017-02-12] MEDS: Oxycodone/Acetaminophen 5/325 mg Tab PO PRN ×3 (04:06→16:14)
[2017-02-12] MEDS: oxyCODONE 80 mg ER Tab (oxyCONTIN) PO SCH ×4 (04:08→20:23)
[2017-02-12 07:33] LABS: HEMATOCRIT 37.2 % (42.0-52.0); MEAN CELL VOLUME 88.2 fL (80.0-105.0); MEAN CORPUSCULAR HEMOGLOBIN 29.1 pg (25.0-35.0); MEAN CORPUSCULAR HGB CONC 33.1 g/dl (31.0-37.0); MEAN PLATELET VOLUME 11.2 fl (7.0-11.0); RED CELL DISTRIBUTION WIDTH 13.4 % (11.5-14.5); WHITE BLOOD COUNT 6.1 10^3/ul (4.5-11.0)
[2017-02-12 07:42] LABS: INR 1.36 (0.93-1.08); PARTIAL THROMBOPLASTIN TIME 38.7 Seconds (23.7-30.8)
[2017-02-12] MEDS: Budesonide 0.5 mg/2 ml Inhal Susp UD IH SCH ×2 (07:51→20:41)
[2017-02-12] MEDS: Arformoterol 15 mcg/2 ml Inh Sol IH SCH ×2 (07:51→20:40)
[2017-02-12 08:13] LABS: ALB/GLOB RATIO 0.9 (1.1-1.8); ALKALINE PHOSPHATASE 134 U/L (38-133); ALT/SGPT 28 U/L (7-56); AST/SGOT 22 U/L (15-59); BILIRUBIN,TOTAL 0.5 mg/dL (0.2-1.3); BLOOD UREA NITROGEN 19 mg/dL (7-21); CALCIUM 9.3 mg/dL (8.4-10.5); CARBON DIOXIDE 32 mmol/L (21-33); CHLORIDE 96 mmol/L (98-107); GFR AFRICAN-AMERICAN > 60; GLUCOSE,RANDOM 94 mg/dL (70-110); POTASSIUM 4.1 mmol/L (3.6-5.0); SODIUM 137 mmol/L (132-148); TOTAL PROTEIN 8.4 g/dL (5.8-8.3)
[2017-02-12 08:32] VITALS: RESP 20
[2017-02-12] MEDS: Insulin Reg-MEDIUM-Coverage SC SCH ×3 (08:42→16:12)
--- NOTE | 2017-02-12 09:37 | CP.PCM.PN ---
<Dipti Loyd - Last Filed: 02/12/17 09:35> Subjective - Date & Time of Evaluation Date of Evaluation: 02/12/17 Time of Evaluation: 09:35 - Subjective Subjective: 56 y/o male seen at bedside with attending Dr. Daniels for bilateral venous stasis ulcerations of the lower extremities. Patient denies any acute events overnight. He states that he has mild chills and decreased appetite. Patient states that he has a lot of pain in his legs. He denies n/f/v/d/sob Objective - Vital Signs/Intake and Output Vital Signs (last 24 hours): Temp Pulse Resp BP Pulse Ox 98.1 F 88 20 143/80 100 02/12/17 08:31 02/12/17 08:31 02/12/17 08:31 02/12/17 08:31 02/12/17 08:31 Intake and Output: 02/12/17 02/12/17 06:59 18:59 Intake Total 1500 Output Total 4150 Balance -2650 - Medications Medications: Current Medications Amlodipine Besylate (Norvasc) 5 mg PO DAILY [facility] Last Admin: 02/11/17 10:13 Dose: 5 mg Arformoterol Tartrate (Brovana) 15 mcg IH [id number] [facility] Last Admin: 02/12/17 07:51 Dose: Not Given Budesonide (Pulmicort Respules) 0.5 mg IH [id number] [facility] Last Admin: 02/12/17 07:51 Dose: Not Given Clonidine HCl (Catapres) 0.1 mg PO BID [facility] Last Admin: 02/11/17 18:33 Dose: Not Given Docusate Sodium (Colace) 100 mg PO TID [facility] Last Admin: 02/11/17 18:14 Dose: Not Given Enoxaparin Sodium (Lovenox) 80 mg SC Q12H [facility] PRN Reason: Protocol Last Admin: 02/11/17 21:43 Dose: 80 mg Finasteride (Proscar) 5 mg PO DAILY [facility] Last Admin: 02/11/17 10:14 Dose: 5 mg Furosemide (Lasix) 80 mg PO Q8H [facility] Last Admin: 02/12/17 06:51 Dose: Not Given Hydralazine HCl (Apresoline) 10 mg PO QID [facility] Last Admin: 02/11/17 21:45 Dose: 10 mg Vancomycin HCl (Vancomycin 1gm) 250 mls @ 167 mls/hr IVPB Q12H [facility] PRN Reason: Protocol Last Admin: 02/11/17 23:46 Dose: 167 mls/hr Meropenem 1g/NS 100mL IVPB (Meropenem 1g/Ns 100ml Ivpb) 100 mls @ 100 mls/hr IVPB Q8H [facility] Stop: 02/16/17 09:01 Last Admin: 02/12/17 02:10 Dose: 100 mls/hr Insulin Human Regular (Humulin R Med) 0 units SC ACHS [facility] PRN Reason: Protocol Last Admin: 02/12/17 08:42 Dose: Not Given Levothyroxine Sodium (Synthroid) 75 mcg PO ACB [facility] Last Admin: 02/11/17 10:10 Dose: 75 mcg Metoprolol Tartrate (Lopressor) 25 mg PO BID [facility] Last Admin: 02/11/17 18:13 Dose: 25 mg Montelukast Sodium (Singulair) 10 mg PO HS [facility] Last Admin: 02/11/17 21:46 Dose: 10 mg Mupirocin (Bactroban Ointment) 0 gm TOP BID [facility] Last Admin: 02/11/17 18:14 Dose: Not Given Nystatin (Nystop Topical Powder) 0 gm TOP QSHIFT [facility] Last Admin: 02/11/17 23:30 Dose: 1 applic Oxycodone HCl (Oxycontin Extended Release Tab) 80 mg PO Q6H [facility] Last Admin: 02/12/17 04:08 Dose: 80 mg Warfarin Sodium (Coumadin) 15 mg PO 1800 [facility] PRN Reason: Protocol Last Admin: 02/11/17 18:13 Dose: 15 mg - Labs Labs: 02/12/17 07:00 02/12/17 07:00 PT 14.7 Seconds (9.9-11.8) H 02/12/17 07:00 INR 1.36 (0.93-1.08) H 02/12/17 07:00 APTT 38.7 Seconds (23.7-30.8) H 02/12/17 07:00 - Constitutional Appears: Well, Non-toxic, No Acute Distress - Extremities Exam Additional comments: Vasc: nonpalpable pedal pulses due to edema b/l, TG warm to warm, CFT < 3 sec to all digits, +1 pitting edema Neuro: grossly diminished Derm: +1 pitting edema to legs bilateral, localized erythema to midcalf bilateral, no ascending cellulitis, superficial open lesions on the posterior aspect of left leg, medial aspect of right leg- granular base, no purulence, moderate serous drainage, no active bleeding, no undermining, no tracking, no probe to bone, moderate malodor ortho: pain on palpation of posterior and medial legs b/l - Neurological Exam Neurological Exam: Alert, Awake, Oriented x3 - Psychiatric Exam Psychiatric exam: Normal Affect, Normal Mood Assessment and Plan - Assessment and Plan (Free Text) Assessment: 56 y/o male with seen at bedside for bilateral venous stasis ulcerations Plan: patient evaluated and seen at bedside with attending Dr. Daniels labs and vitals reviewed; afebrile, WBC 6.1 continue IV abx cleansed legs with saline, applied xeroform, ABD, kerlix, YAYO bilaterally patient encouraged to begin walking again Rx multipodus offloading boots wound cx: gram negative jason,MRSA podiatry will continue to monitor while patient remains in house <Preeti Daniels - Last Filed: 02/13/17 13:03> Objective - Vital Signs/Intake and Output Vital Signs (last 24 hours): Temp Pulse Resp BP Pulse Ox 97.5 F L 68 20 135/72 94 L 02/12/17 16:00 02/12/17 16:00 02/12/17 16:00 02/12/17 16:00 02/12/17 16:00 - Labs Labs: 02/12/17 07:00 02/12/17 07:00 PT 14.7 Seconds (9.9-11.8) H 02/12/17 07:00 INR 1.36 (0.93-1.08) H 02/12/17 07:00 APTT 38.7 Seconds (23.7-30.8) H 02/12/17 07:00 Attending/Attestation - Attestation I have personally seen and examined this patient.: Yes I have fully participated in the care of the patient.: Yes I have reviewed all pertinent clinical information, including history, physical exam and plan: Yes
[2017-02-12] MEDS: Levothyroxine 75 MCG TAB PO SCH (10:30)
[2017-02-12] MEDS: Nystatin 100,000 Units/gm Topical Pow(15 gm) TOP SCH ×2 (10:30→16:10)
[2017-02-12] MEDS: Enoxaparin 80 mg Syringe SC SCH (11:29)
[2017-02-12] MEDS: Vancomycin 1gm in NS 250ml 250 ML IVPB SCH (11:31)
--- NOTE | 2017-02-12 13:36 | CP.PCM.PN ---
Subjective - Date & Time of Evaluation Date of Evaluation: 02/12/17 Time of Evaluation: 13:33 - Subjective Subjective: Surgery: Dr. Mast Pt seen and examined. Resting comfortably in bed. No complaints. Objective - Vital Signs/Intake and Output Vital Signs (last 24 hours): Temp Pulse Resp BP Pulse Ox 98.1 F 88 20 140/80 100 02/12/17 08:31 02/12/17 10:30 02/12/17 08:31 02/12/17 10:30 02/12/17 08:31 Intake and Output: 02/12/17 02/12/17 06:59 18:59 Intake Total 1500 Output Total 4150 Balance -2650 - Medications Medications: Current Medications Amlodipine Besylate (Norvasc) 5 mg PO DAILY [facility] Last Admin: 02/12/17 10:28 Dose: 5 mg Arformoterol Tartrate (Brovana) 15 mcg IH [id number] [facility] Last Admin: 02/12/17 07:51 Dose: Not Given Budesonide (Pulmicort Respules) 0.5 mg IH [id number] [facility] Last Admin: 02/12/17 07:51 Dose: Not Given Clonidine HCl (Catapres) 0.1 mg PO BID [facility] Last Admin: 02/12/17 10:30 Dose: 0.1 mg Docusate Sodium (Colace) 100 mg PO TID [facility] Last Admin: 02/12/17 10:31 Dose: Not Given Enoxaparin Sodium (Lovenox) 80 mg SC Q12H [facility] PRN Reason: Protocol Last Admin: 02/12/17 11:29 Dose: 80 mg Finasteride (Proscar) 5 mg PO DAILY [facility] Last Admin: 02/12/17 10:28 Dose: 5 mg Furosemide (Lasix) 80 mg PO Q8H [facility] Last Admin: 02/12/17 06:51 Dose: Not Given Hydralazine HCl (Apresoline) 10 mg PO QID [facility] Last Admin: 02/12/17 10:28 Dose: 10 mg Vancomycin HCl (Vancomycin 1gm) 250 mls @ 167 mls/hr IVPB Q12H [facility] PRN Reason: Protocol Last Admin: 02/12/17 11:31 Dose: 167 mls/hr Meropenem 1g/NS 100mL IVPB (Meropenem 1g/Ns 100ml Ivpb) 100 mls @ 100 mls/hr IVPB Q8H [facility] Stop: 02/16/17 09:01 Last Admin: 02/12/17 11:30 Dose: 100 mls/hr Insulin Human Regular (Humulin R Med) 0 units SC ACHS [facility] PRN Reason: Protocol Last Admin: 02/12/17 11:32 Dose: Not Given Levothyroxine Sodium (Synthroid) 75 mcg PO ACB [facility] Last Admin: 02/12/17 10:30 Dose: 75 mcg Metoprolol Tartrate (Lopressor) 25 mg PO BID [facility] Last Admin: 02/12/17 10:30 Dose: 25 mg Montelukast Sodium (Singulair) 10 mg PO HS [facility] Last Admin: 02/11/17 21:46 Dose: 10 mg Mupirocin (Bactroban Ointment) 0 gm TOP BID [facility] Last Admin: 02/12/17 10:31 Dose: 1 applic Nystatin (Nystop Topical Powder) 0 gm TOP QSHIFT [facility] Last Admin: 02/12/17 10:30 Dose: 1 applic Oxycodone HCl (Oxycontin Extended Release Tab) 80 mg PO Q6H [facility] Last Admin: 02/12/17 10:29 Dose: 80 mg Oxycodone/Acetaminophen (Percocet 5/325 Mg Tab) 2 tab PO Q6H [facility] PRN Reason: Pain, moderate (4-7) Stop: 02/15/17 10:04 Last Admin: 02/12/17 10:29 Dose: 2 tab Warfarin Sodium (Coumadin) 15 mg PO 1800 [facility] PRN Reason: Protocol Last Admin: 02/11/17 18:13 Dose: 15 mg - Labs Labs: 02/12/17 07:00 02/12/17 07:00 PT 14.7 Seconds (9.9-11.8) H 02/12/17 07:00 INR 1.36 (0.93-1.08) H 02/12/17 07:00 APTT 38.7 Seconds (23.7-30.8) H 02/12/17 07:00 - Constitutional Appears: Non-toxic, No Acute Distress - Head Exam Head Exam: ATRAUMATIC, NORMOCEPHALIC - Eye Exam Eye Exam: EOMI. absent: Scleral icterus - ENT Exam ENT Exam: Mucous Membranes Moist - Neck Exam Neck Exam: Full ROM - Respiratory Exam Respiratory Exam: NORMAL BREATHING PATTERN. absent: Accessory Muscle Use, Respiratory Distress - GI/Abdominal Exam Additional comments: morbidly obese - Extremities Exam Additional comments: decubitus ulcer R gluteal fold w. wound vac in place Decubitus ulcer in L gluteal fold Stage II - Neurological Exam Neurological Exam: Alert, Awake, Oriented x3 Assessment and Plan - Assessment and Plan (Free Text) Assessment: 56M w. decubitus ulcer in B/L gluteal folds -R gluteal decubitus, will change wound vac tomorrow -L gluteal fold, daily dressing changes w. leda -c/w abx per ID -d/w attending Maria De Jesus PGY2
[2017-02-12 18:29] VITALS: BP 135/72; PULSE 68; TEMP 97.5; O2SAT 94
[2017-02-12] MEDS ORDERED: Oxycodone/Acetaminophen 5/325 mg Tab PO STA (20:10)
[2017-02-12] MEDS ORDERED: oxyCODONE 80 mg ER Tab (oxyCONTIN) PO STA (20:14)
--- NOTE | 2017-02-12 21:28 | CP.PCM.PN ---
Subjective - Date & Time of Evaluation Date of Evaluation: 02/12/17 Time of Evaluation: 09:15 - Subjective Subjective: Still with pain in the legs but less. Afebrile. Objective - Vital Signs/Intake and Output Vital Signs (last 24 hours): Temp Pulse Resp BP Pulse Ox 97.5 F L 68 20 135/72 94 L 02/12/17 16:00 02/12/17 16:00 02/12/17 16:00 02/12/17 16:00 02/12/17 16:00 Intake and Output: 02/12/17 02/13/17 18:59 06:59 Intake Total 1140 Output Total 900 Balance 240 - Labs Labs: 02/12/17 07:00 02/12/17 07:00 PT 14.7 Seconds (9.9-11.8) H 02/12/17 07:00 INR 1.36 (0.93-1.08) H 02/12/17 07:00 APTT 38.7 Seconds (23.7-30.8) H 02/12/17 07:00 - Constitutional Appears: Non-toxic, No Acute Distress - Head Exam Head Exam: NORMAL INSPECTION - ENT Exam ENT Exam: Mucous Membranes Moist - Neck Exam Neck Exam: absent: Lymphadenopathy, Meningismus - Respiratory Exam Respiratory Exam: Decreased Breath Sounds - Cardiovascular Exam Cardiovascular Exam: +S1, +S2 - GI/Abdominal Exam GI & Abdominal Exam: Soft. absent: Tenderness - Extremities Exam Additional comments: both legs with dry dressings in place Assessment and Plan - Assessment and Plan (Free Text) Plan: Assessment Consider skin and skin structure infection with bilateral leg infected ulcers in a patient with recurrent leg infections and venous stasis, growing MRSA and gram negative bacilli S/P wound vacuum placement for upper thigh wounds POD #2 history of Skin and skin structure infection of the left lower extremity with Pseudomonas, Enterococcus and MRSA in a patient with recurrent left leg infection Morbid obesity with BMI of 43 DM HTN COPD hyopthyroidism bilateral lower extremity swelling due to venous stasis Osteoarthritis Chronic pain syndrome Plan continue Vancomycin and Meropenem day 4 pending final wound culture results
--- NOTE | 2017-02-12 23:37 | PN ---
DATE: 02/12/2017 SUBJECTIVE: The patient is lying in the bed at 45 degrees, night was unremarkable, does not use CPAP /BiPAP. Rhinitis, cough is better. No nausea, no vomiting, no diarrhea. Decreased leg swelling. S till having oozing ulcers, has wound VA on the sacral decubiti. OBJECTIVE: GENERAL: In no acute distress. VITAL SIGNS: Temperature is 98, heart rate 68, respiratory rate is 20, blood pressure 135/72, pulse ox 94% on room air. HEENT: Moist mucous membrane. Crowded airway. Mallampati score is 4. NECK: Supple. No JVD. LUNGS: Have a fair airflow with rhonchi. HEART: S1, S2. ABDOMEN: Soft, nontender. No organomegaly. EXTREMITIES: Has Steven wraps on the lower extremities, decreased edema and erythema. Still has oozing ulcers, has a sacral wound VAC. NEUROLOGIC: Awake, alert, follows simple commands. MEDICATIONS: Reviewed. No new medication reported since yesterday. LABORATORY DATA: Reviewed shows hemoglobin 12.3, hematocrit 37.2, WBC 6.1, platelet count is 182. I NR 1.36. PTT is 39. Sodium 137, potassium 4.1, chloride 96, bicarbonate 32, BUN 19, creatinine 1.1, glucose 145, calcium is 9.3, AST 22, ALT 28, alkaline phosphatase is 134, albumin is 3.9. Leg wound has negative rods and also MRSA. IMPRESSION AND PLAN: Cellulitis and infected wound of the lower extremity. Has a sacral decubiti ul cer, history of DVT, pulmonary embolism, has inferior vena cava filter, chronic obstructive lung dise ase, obstructive sleep apnea syndrome, hypertension, diabetes, morbid obesity, chronic pain syndrome, opiate dependence. Spoke to the patient in detail. Encouraged him to use BiPAP, keep head elevated at 45 degrees, careful with sedation, antibiotics as per infectious diseases. Continue anticoagulat ion. Continue follow electrolytes closely. Siri Santoyo MD cc: [phone] TT: 02/12/2017 23:36:53 Confirmation # [id number] Dictation # [id number] mn
--- NOTE | 2017-02-13 10:22 | DS ---
SUBJECTIVE: The patient admitted with cellulitis of left lower extremity and right leg. The patient also had leg wounds that seems to be deep in the upper thigh, back of the thigh junction of the butt ock area and thigh. He did have his wounds for 4-5 months now. The patient came in with infection, seen by surgical consult, Dr. Mast who recommend wound VAC. He also was seen by Dr. Daniels, [facility], for his leg extremity cellulitis and chronic lymphedema, and patient had wound care and both legs were wrapped with gauze and kept elevated. He also had wound care for his thigh wound. The pat ient is stable. ID consult seen the patient given IV vancomycin, recommendations to go to LTAC for c ontinuation of IV therapy and wound care. PHYSICAL EXAMINATION: VITAL SIGNS: Temperature 97.5, heart rate 68, blood pressure 135/72, respirations 20, saturation 100 % on room air. HEAD AND NECK: Normal. No JVD, no thyromegaly. CHEST: Clear, good entry. CARDIAC: First sound, second sound normal. ABDOMEN: Obese, nontender. EXTREMITIES: Both legs have lymphedema, skin discolorations. Both are covered with gauze. Also, up per thigh area has wound coverage on both of them. LABORATORY DATA: White count 6.1, hemoglobin 12.3, hematocrit 37.2, platelets 182. Chemistry shows sodium 137, potassium 4.1, chloride 96, bicarbonate 32, BUN 19, creatinine 1.1, blood sugar 120s-140. IMPRESSION AND PLAN: 1. Cellulitis, left leg with upper thigh area infected wounds. Continue vancomycin as per ID consul t for at least 6 weeks. Continue wound care. 2. Obstructive sleep apnea, chronic obstructive pulmonary disease, chronic deep vein thrombosis, his tory of Henna filter. Continue Coumadin. Continue BiPAP. Continue inhaled bronchodilators. 3. Diabetes type 2, controlled. 4. Hypothyroidism, chronic back pain, chronic osteoarthritis, chronic knee deformity, total knee rep lacement, left leg. Continue pain medicine, oxycodone and OxyContin. 5. Morbid obesity, obstructive sleep apnea, noncompliance with BiPAP. Recommend the patient to cont inue. It was discussed with him in detail about morbid obesity, has been discussion about for long p eriods, of bariatric surgery. He completely refuses. Continue current therapy. Yvon Gonzalez MD cc: [phone] TT: 02/13/2017 10:21:56 jn
== END 2017-02-12 20:30 | DRG 602 ==
LOC: ED 21:59 → ERH 22:46 → 5RSO 02-09 01:28
PROVIDERS: ADMIT Internal Medicine; ATTEND Internal Medicine
DX: L03.116 Cellulitis of left lower limb (principal); L89.314 Pressure ulcer of right buttock, stage 4; L89.323 Pressure ulcer of left buttock, stage 3; I13.0 Hypertensive heart and chronic kidney disease with heart failure and stage 1 through stage 4 chronic kidney disease, or unspecified chronic kidney disease; I50.9 Heart failure, unspecified; I82.533 Chronic embolism and thrombosis of popliteal vein, bilateral; I82.513 Chronic embolism and thrombosis of femoral vein, bilateral; F11.20 Opioid dependence, uncomplicated; L97.121 Non-pressure chronic ulcer of left thigh limited to breakdown of skin; L97.821 Non-pressure chronic ulcer of other part of left lower leg limited to breakdown of skin; N13.30 Unspecified hydronephrosis; Z68.41 Body mass index [BMI] 40.0-44.9, adult; E11.622 Type 2 diabetes mellitus with other skin ulcer; E11.65 Type 2 diabetes mellitus with hyperglycemia; L89.159 Pressure ulcer of sacral region, unspecified stage; N13.9 Obstructive and reflux uropathy, unspecified; E66.01 Morbid (severe) obesity due to excess calories; J44.9 Chronic obstructive pulmonary disease, unspecified; B95.62 Methicillin resistant Staphylococcus aureus infection as the cause of diseases classified elsewhere; L03.115 Cellulitis of right lower limb; I89.0 Lymphedema, not elsewhere classified; G47.33 Obstructive sleep apnea (adult) (pediatric); Z96.653 Presence of artificial knee joint, bilateral; G89.4 Chronic pain syndrome; E03.9 Hypothyroidism, unspecified; M21.162 Varus deformity, not elsewhere classified, left knee; M17.12 Unilateral primary osteoarthritis, left knee; J45.909 Unspecified asthma, uncomplicated; I25.10 Atherosclerotic heart disease of native coronary artery without angina pectoris; E78.5 Hyperlipidemia, unspecified; F32.9 Major depressive disorder, single episode, unspecified; I87.2 Venous insufficiency (chronic) (peripheral); N18.9 Chronic kidney disease, unspecified; N40.0 Benign prostatic hyperplasia without lower urinary tract symptoms; I27.2 Other secondary pulmonary hypertension; Z91.19 Patient's noncompliance with other medical treatment and regimen; Z79.01 Long term (current) use of anticoagulants; Z79.4 Long term (current) use of insulin

== ENCOUNTER 2017-03-31 20:28 | Inpatient (IN) | payer MEDICARE, OTHER ==
[2017-03-31 20:29] VITALS: BMI 59.2
[2017-03-31] MEDS ORDERED: oxyCODONE 80 mg ER Tab (oxyCONTIN) PO STA (21:09)
[2017-03-31] MEDS ORDERED: Oxycodone/Acetaminophen 5/325 mg Tab PO STA (21:10)
[2017-03-31 21:40] LABS: ADD MANUAL DIFF? NO
[2017-03-31 21:52] LABS: BASO # 0.03 K/mm3 (0.0-2.0); BASO % 0.5 % (0.0-3.0); EOS # 0.4 (0.0-0.7); EOS % 6.1 % (1.5-5.0); GRAN # 4.42 (1.4-6.5); GRAN % 68.5 % (50.0-68.0); HEMATOCRIT 33.3 % (42.0-52.0); LYMPH # 1.2 (1.2-3.4); LYMPH % 18.2 % (22.0-35.0); MEAN CELL VOLUME 85.8 fL (80.0-105.0); MEAN CORPUSCULAR HEMOGLOBIN 29.1 pg (25.0-35.0); MEAN CORPUSCULAR HGB CONC 33.9 g/dl (31.0-37.0); MEAN PLATELET VOLUME 11.7 fl (7.0-11.0); MONO # 0.4 (0.1-0.6); MONO % 6.7 % (1.0-6.0); PLATELET COUNT 205 10^3/uL (120.0-450.0); WHITE BLOOD COUNT 6.4 10^3/ul (4.5-11.0)
[2017-03-31 21:54] LABS: ALB/GLOB RATIO 0.9 (1.1-1.8); ALKALINE PHOSPHATASE 121 U/L (38-133); ALT/SGPT 25 U/L (7-56); AST/SGOT 24 U/L (15-59); BILIRUBIN,TOTAL 0.6 mg/dL (0.2-1.3); BLOOD UREA NITROGEN 17 mg/dL (7-21); CALCIUM 8.6 mg/dL (8.4-10.5); CARBON DIOXIDE 31 mmol/L (21-33); CHLORIDE 96 mmol/L (98-107); GFR AFRICAN-AMERICAN > 60; GLUCOSE,RANDOM 146 mg/dL (70-110); POTASSIUM 3.5 mmol/L (3.6-5.0); SODIUM 135 mmol/L (132-148); TOTAL PROTEIN 8.1 g/dL (5.8-8.3)
[2017-03-31] MEDS ORDERED: Vancomycin 1gm in NS 250ml 1 GM/250 ML BAG IVPB STA (22:32)
[2017-03-31] MEDS ORDERED: Piperacillin/Tazobact 3.375 gm 100 ML IVPB STA (22:33)
[2017-03-31] MEDS ORDERED: Potassium Chloride 20 mEq ER Tab PO ONE (23:03)
--- NOTE | 2017-03-31 23:17 | ED PDOC ---
Arrival/HPI - General Chief Complaint: Lower Extremity Problem/Injury Time Seen by Provider: 03/31/17 20:30 Historian: Patient - History of Present Illness Narrative History of Present Illness (Text): 03/31/17 23:12 Omer Rome is a 56 year old male, with a history of chronic leg ulcer with multiple infections, CHF, COPD, DVT s/p IVC filter, diabetes, hypertension, and sleep apnea, presents to the emergency department complaining of worsening bilateral lower extremity swelling and redness. Patient also notes of decubitus ulcer to the buttock region. Denies any fever, chills, headache, dizziness, nausea, vomiting, diarrhea, urinary symptoms, or any other complaints at this time. PMD: Time/Duration: > month Symptom Onset: Gradual Symptom Course: Unchanged Severity Level: Mild Activities at Onset: Light Past Medical History - Provider Review Nursing Documentation Reviewed: Yes - Infectious Disease Hx of Infectious Diseases: None - Tetanus Immunization Tetanus Immunization: Unknown - Reproductive Currently : No - Cardiac Hx Congestive Heart Failure: Yes Hx Hypertension: Yes Hx Peripheral Edema: Yes (+4 edema) - Pulmonary Hx Asthma: Yes Hx Chronic Obstructive Pulmonary Disease (COPD): Yes Hx Pneumonia: Yes Hx Pulmonary Embolism: Yes Hx Sleep Apnea: Yes - Neurological Hx Neurological Disorder: No - HEENT Hx HEENT Disorder: No - Renal Hx Renal Disorder: No - Endocrine/Metabolic Hx Hyperthyroidism: Yes Hx Hypothyroidism: Yes - Hematological/Oncological Hx Blood Disorders: No - Integumentary Hx Dermatological Disorder: Yes Hx Cellulitis: Yes (BLE) Other/Comment: both leggs discolored - Musculoskeletal/Rheumatological Hx Arthritis: Yes Hx Fractures: Yes - Gastrointestinal Hx Gastrointestinal Disorders: Yes - Genitourinary/Gynecological Hx Genitourinary Disorders: No - Psychiatric Hx Depression: Yes Hx Substance Use: No - Surgical History Hx Orthopedic Surgery: Yes (bilateral knee replacement) Other/Comment: total left knee - 1998. right ankle screws - 1987. right hip jason - 1982 - Anesthesia Hx Anesthesia: Yes Hx Anesthesia Reactions: No Hx Malignant Hyperthermia: No - Suicidal Assessment Feels Threatened In Home Enviroment: No Family/Social History - Physician Review Nursing Documentation Reviewed: Yes Family/Social History: No Known Family HX Smoking Status: Never Smoked Hx Alcohol Use: No Hx Substance Use: No Hx Substance Use Treatment: No Allergies/Home Meds Allergies/Adverse Reactions: Allergies No Known Allergies Allergy (Verified 02/08/17 22:09) Home Medications: Home Meds Medication Instructions Recorded Confirmed oxyCODONE [oxyCONTIN Extended 80 mg PO Q6 04/01/17 04/01/17 Release Tab] Review of Systems - Physician Review All systems were reviewed & negative as marked: Yes - Review of Systems Constitutional: Normal. absent: Fatigue, Fevers Respiratory: Normal. absent: SOB, Cough, Sputum Cardiovascular: Normal. absent: Chest Pain, Palpitations Gastrointestinal: Normal. absent: Abdominal Pain, Diarrhea, Nausea, Vomiting Genitourinary Male: Normal Musculoskeletal: Other (b/l LE edema and redness. ducubitus ulcer at buttock region ) Neurological: absent: Headache, Dizziness Physical Exam Vital Signs Reviewed: Yes Vital Signs Temp Pulse Resp BP Pulse Ox 04/01/17 01:51 98.6 F 84 16 110/60 95 03/31/17 20:35 98.4 F 83 18 145/80 97 Temperature: Afebrile Blood Pressure: Normal Pulse: Regular Respiratory Rate: Normal Appearance: Positive for: Non-Toxic Pain Distress: None Mental Status: Positive for: Alert and Oriented X 3 - Systems Exam Head: Present: Atraumatic, Normocephalic Pupils: Present: PERRL Conjunctiva: Present: Normal Respiratory/Chest: Present: Clear to Auscultation, Good Air Exchange. No: Respiratory Distress, Accessory Muscle Use Cardiovascular: Present: Regular Rate and Rhythm, Normal S1, S2. No: Murmurs Abdomen: Present: Normal Bowel Sounds. No: Tenderness, Distention, Peritoneal Signs Upper Extremity: Present: Normal Inspection. No: Cyanosis, Edema Lower Extremity: Present: Edema (4+ pitting edema ), Swelling, Erythema, Neurovascularly Intact, Other (decubitus ulcer buttock region ). No: Deformity , Temperature Abnormalties Neurological: Present: GCS=15, CN II-XII Intact, Speech Normal Skin: Present: Warm, Dry, Normal Color. No: Rashes Psychiatric: Present: Alert, Oriented x 3, Normal Insight, Normal Concentration Medical Decision Making ED Course and Treatment: 03/31/17 23:25 Impression: A 56 year old male who presents to the emergency department complaining of worsening bilateral lower extremity cellulitis. Differential Diagnosis include but are not limited to: cellulitis Plan: -- EKG -- Labs --Potassium Chloride -- Percocet -- Vanco -- Zosyn -- Oxycodone -- Blood culture -- Reassess and disposition Progress Notes: 03/31/17 23:27 EKG reviewed by me: NSR @ 82 bpm. Normal axis. normal interval. Case discussed with Dr. Gonzalez who is aware of details. Recommends that patient be admitted under hospitalist service. Case discussed with Dr. Gracia who is aware and agrees with the plan to admit patient to Med/Surg for lower extremity cellulitis. - Lab Interpretations Lab Results: 03/31/17 21:30 03/31/17 21:30 Lab Results 03/31/17 21:30: Sodium 135, Potassium 3.5 L, Chloride 96 L, Carbon Dioxide 31, Anion Gap 12, BUN 17, Creatinine 1.2, Est GFR ( Amer) > 60, Est GFR (Non- Af Amer) > 60, Random Glucose 146 H, Calcium 8.6, Total Bilirubin 0.6, AST 24, ALT 25, Alkaline Phosphatase 121, Total Protein 8.1, Albumin 3.9, Globulin 4.2, Albumin/Globulin Ratio 0.9 L 03/31/17 21:30: WBC 6.4, RBC 3.88, Hgb 11.3 L, Hct 33.3 L, MCV 85.8, MCH 29.1, MCHC 33.9, RDW 14.0, Plt Count 205, MPV 11.7 H, Gran % 68.5 H, Lymph % (Auto) 18.2 L, [place] % (Auto) 6.7 H, Eos % (Auto) 6.1 H, Baso % (Auto) 0.5, Gran # 4.42 , Lymph # 1.2, [place] # 0.4, Eos # 0.4, Baso # 0.03 I have reviewed the lab results: Yes - EKG Interpretation Interpreted by ED Physician: Yes Type: 12 lead EKG - Medication Orders Current Medication Orders: Acetaminophen (Tylenol 325mg Tab) 650 mg PO Q6H PRN PRN Reason: Fever >100.4 F Clonidine HCl (Catapres) 0.1 mg PO BID [facility] Last Admin: 04/01/17 17:10 Dose: Not Given Non-Admin Reason: BP Parameters Not Met Docusate Sodium (Colace) 100 mg PO TID [facility] Last Admin: 04/01/17 17:10 Dose: Not Given Non-Admin Reason: Patient Refused Finasteride (Proscar) 5 mg PO DAILY [facility] Last Admin: 04/01/17 09:24 Dose: 5 mg Furosemide (Lasix) 40 mg PO BID [facility] Last Admin: 04/01/17 17:11 Dose: 40 mg Linezolid (Zyvox 600mg/300ml D5w) 600 mg in 300 mls @ 200 mls/hr IVPB Q12 [facility] PRN Reason: Protocol Stop: 04/08/17 10:01 Last Admin: 04/01/17 09:18 Dose: 200 mls/hr Insulin Human Lispro (Humalog) 0 units SC ACHS [facility] PRN Reason: Protocol Last Admin: 04/01/17 17:11 Dose: Not Given Non-Admin Reason: Blood Sugar Parameter Levothyroxine Sodium (Synthroid) 75 mcg PO DAILY@0630 [facility] Last Admin: 04/01/17 06:45 Dose: 75 mcg Lidocaine (Lidoderm) 1 ea TD DAILY [facility] Last Admin: 04/01/17 09:23 Dose: 1 ea Lisinopril (Zestril) 5 mg PO DAILY [facility] Last Admin: 04/01/17 09:24 Dose: 5 mg Metoprolol Tartrate (Lopressor) 25 mg PO DAILY [facility] Last Admin: 04/01/17 09:24 Dose: 25 mg Multivitamins (Thera Tab) 1 tab PO DAILY [facility] Last Admin: 04/01/17 17:14 Dose: 1 tab Nystatin (Nystop Topical Powder) 0 gm TOP Q6H PRN PRN Reason: Rash Oxycodone HCl (Oxycontin Extended Release Tab) 80 mg PO Q6 [facility] Last Admin: 04/01/17 17:11 Dose: 80 mg Oxycodone/Acetaminophen (Percocet 5/325 Mg Tab) 2 tab PO Q4H PRN PRN Reason: Pain, severe (8-10) Stop: 04/03/17 23:36 Last Admin: 04/01/17 17:12 Dose: 2 tab Pantoprazole Sodium (Protonix Ec Tab) 40 mg PO ACB [facility] Last Admin: 04/01/17 06:45 Dose: 40 mg Warfarin Sodium (Coumadin) 10 mg PO 1800 [facility] PRN Reason: Protocol Last Admin: 04/01/17 17:10 Dose: 10 mg Zinc Sulfate (Zinc Sulfate 220 Mg Cap) 220 mg PO DAILY [facility] Last Admin: 04/01/17 17:14 Dose: 220 mg Discontinued Medications Vancomycin HCl (Vancomycin 1gm) 1 gm in 250 mls @ 167 mls/hr IVPB STAT STA PRN Reason: Protocol Stop: 04/01/17 00:01 Last Admin: 04/01/17 00:26 Dose: 167 mls/hr Piperacillin Sod/Tazobactam Sod (Zosyn 3.375 In Ns 100ml) 100 mls @ 200 mls/hr IVPB STAT STA PRN Reason: Protocol Stop: 03/31/17 23:02 Last Admin: 03/31/17 22:54 Dose: 200 mls/hr Cefepime HCl (Maxipime 1gm) 1 gm in 100 mls @ 100 mls/hr IVPB Q8 [facility] PRN Reason: Protocol Last Admin: 04/01/17 02:21 Dose: 100 mls/hr Lisinopril (Zestril) 5 mg PO STAT STA Stop: 04/01/17 00:44 Oxycodone HCl (Oxycontin Extended Release Tab) 80 mg PO STAT STA Stop: 03/31/17 21:10 Last Admin: 03/31/17 21:35 Dose: 80 mg Oxycodone HCl (Oxycontin Extended Release Tab) 40 mg PO Q6 [facility] Last Admin: 04/01/17 06:44 Dose: 40 mg Oxycodone/Acetaminophen (Percocet 5/325 Mg Tab) 2 tab PO STAT STA Stop: 03/31/17 21:11 Last Admin: 03/31/17 21:35 Dose: 2 tab Potassium Chloride (K-Dur 20 Meq Er Tab) 20 meq PO ONCE ONE Stop: 03/31/17 23:04 Last Admin: 04/01/17 01:39 Dose: 20 meq Potassium Chloride (K-Dur 20 Meq Er Tab) 40 meq PO ONCE ONE Stop: 04/01/17 09:37 Last Admin: 04/01/17 12:03 Dose: 40 meq - Scribe Statement The provider has reviewed the documentation as recorded by the Martina Joseph Provider Attestation: Provider Scribe Attestation: All medical record entries made by the Martina were at my direction and personally dictated by me. I have reviewed the chart and agree that the record accurately reflects my personal performance of the history, physical exam, medical decision making, and the department course for this patient. I have also personally directed, reviewed, and agree with the discharge instructions and disposition. Disposition/Present on Arrival - Present on Arrival Any Indicators Present on Arrival: No History of DVT/PE: Yes History of Uncontrolled Diabetes: Yes Urinary Catheter: Yes History of Decub. Ulcer: No History Surgical Site Infection Following: None - Disposition Have Diagnosis and Disposition been Completed?: Yes Diagnosis: Cellulitis, Leg ulcer, left, Stasis ulcer of right lower extremity Disposition: HOSPITALIZED Disposition Time: 23:20 Condition: FAIR
[2017-03-31] MEDS ORDERED: Nystatin 100,000 Units/gm Topical Pow(15 gm) TOP PRN (23:35)
--- NOTE | 2017-03-31 23:47 | CP.PCM.HP ---
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 The patient has home nurses who come to change his dressings on his lower extremities, but the patient states that within 20 minutes the dressings are soaked and need to be changed again. the patient is only ambulatory with a walker; he is only able to take about 20 steps before he becomes so short of breath that he needs to sit down and rest. This is his baseline. He is currently denying any fevers/chills, weight loss/gain, CP, SOB, abdominal pain, N/V/D, dysuria/freq/urg. PMHx: morbid obesity with concomittant pressure ulcers on the back of thighs, buttocks, and lower legs due to immobility, CHF, HTN, HLD, DM, Hypothyroidism, Chronic Pain Fam Hx: noncontributory Meds: Metformin, Clonidine, Docusate, Finasteride, Furosemide, Levothyroxine, Lidocaine, Meoprolol, nystatin powder, Oxycontin 40mg BID, Oxycodone 5mg Q4H, Warfarin 10mg daily. Allergies: NKDA Social: Lives alone, only able to walk about 20 steps before getting completely out of breath, has visiting nurses every day for wound changes, IADL very limited. denies all drugs/etoh In the ED CBC CMP were WNL, VSS WNL, blood cultures were sent. Consults were placed to general surgery and Dr. Daniels for pressure ulcers. Present on Admission - Present on Admission Any Indicators Present on Admission: No History of DVT/PE: Yes History of Uncontrolled Diabetes: Yes Decubitus Ulcer Present: Yes Decubitus Ulcer Stage: IV Review of Systems - Review of Systems All systems: reviewed and no additional remarkable complaints except Past Patient History - Infectious Disease Hx of Infectious Diseases: None - Tetanus Immunizations Tetanus Immunization: Unknown - Past Medical History & Family History Past Medical History?: Yes - Past Social History Smoking Status: Never Smoked - CARDIAC Hx Congestive Heart Failure: Yes Hx Hypertension: Yes Hx Peripheral Edema: Yes (+4 edema) - PULMONARY Hx Asthma: Yes Hx Chronic Obstructive Pulmonary Disease (COPD): Yes Hx Pneumonia: Yes Hx Pulmonary Embolism: Yes Hx Sleep Apnea: Yes - NEUROLOGICAL Hx Neurological Disorder: No - HEENT Hx HEENT Problems: No - RENAL Hx Chronic Kidney Disease: No - ENDOCRINE/METABOLIC Hx Hyperthyroidism: Yes Hx Hypothyroidism: Yes - HEMATOLOGICAL/ONCOLOGICAL Hx Blood Disorders: No - INTEGUMENTARY Hx Dermatological Problems: Yes Hx Cellulitis: Yes (BLE) Other/Comment: both leggs discolored - MUSCULOSKELETAL/RHEUMATOLOGICAL Hx Arthritis: Yes Hx Fractures: Yes - GASTROINTESTINAL Hx Gastrointestinal Disorders: Yes - GENITOURINARY/GYNECOLOGICAL Hx Genitourinary Disorders: No - PSYCHIATRIC Hx Depression: Yes Hx Substance Use: No - SURGICAL HISTORY Hx Orthopedic Surgery: Yes (bilateral knee replacement) Other/Comment: total left knee - 1998. right ankle screws - 1987. right hip jason - 1982 - ANESTHESIA Hx Anesthesia: Yes Hx Anesthesia Reactions: No Hx Malignant Hyperthermia: No Meds Allergies/Adverse Reactions: Allergies Allergy/AdvReac Type Severity Reaction Status Date / Time No Known Allergies Allergy Verified 02/08/17 22:09 Physical Exam - Constitutional Appears: Non-toxic Additional comments: Morbidly obese male who is unable to position himself without assistance; pleasant; short of breath after a few sentences - Head Exam Head Exam: ATRAUMATIC - Eye Exam Eye Exam: EOMI - ENT Exam ENT Exam: Mucous Membranes Moist - Neck Exam Neck exam: Positive for: Full Rom. Negative for: Lymphadenopathy - Respiratory Exam Respiratory Exam: Wheezes, NORMAL BREATHING PATTERN. absent: Clear to Auscultation Bilateral, Rales, Rhonchi, Respiratory Distress, Stridor - Cardiovascular Exam Cardiovascular Exam: REGULAR RHYTHM, +S1, +S2 - GI/Abdominal Exam GI & Abdominal Exam: Normal Bowel Sounds, Soft. absent: Tenderness - Extremities Exam Extremities exam: Positive for: calf tenderness, joint swelling, pedal edema, tenderness. Negative for: full ROM, normal capillary refill, normal inspection Additional comments: Venous Stasis ulcers present up to knees b/l; weeping wounds on both sides covered with ABD; largely soaked; changed on exam - Back Exam Back exam: NORMAL INSPECTION. absent: CVA tenderness (L), CVA tenderness (R) - Neurological Exam Neurological exam: Alert, Oriented x3 - Psychiatric Exam Psychiatric exam: Normal Affect - Skin Skin Exam: Warm Results - Vital Signs Recent Vital Signs: Last Vital Signs Temp 98.4 F 03/31/17 20:35 Pulse 83 03/31/17 20:35 Resp 18 03/31/17 20:35 BP 145/80 03/31/17 20:35 Pulse Ox 97 03/31/17 20:35 - Labs Result Diagrams: 03/31/17 21:30 03/31/17 21:30 Assessment & Plan - Assessment and Plan (Free Text) Assessment: 56yo M admitted for swelling in Legs and Pressure Ulcers Leg Swelling/Pressure Ulcers -General Surgery Consult Candelario for possible debridement -Podiatry Consult Dr. Daniels for wound changes -ID Consult Dr. Bonilla for antibiotics; grew out multidrug resistant organisms last time he was here -wound dressing changes daily -f/u blood cultures HTN -c/w home clonidine CHF; not in acute exacerbation chronic -c/w home meds -started zestril since he was not on before for core measures Hypothyroidism -c/w levothyroxine Chronic Pain -c/w current pain regiment from PMD Chronic DVT -warfarin 10mg daily -check INR adjust accordingly w antibiotics Proph Protonix Warfarin heart healthy diet Case Discussed and seen with Dr. angelina Reed PGY1 Night Float Resident Decision To Admit - Pt Status Changed To: Hospital Disposition Of: Inpatient Admission - Admit Certification Admit to Inpatient:: After my assessment, the patient will require hospitalization for at least two midnights. This is because of the severity of symptoms shown, intensity of services needed, and/or the medical risk in this patient being treated as an outpatient. - . Bed Request Type: Med/Surg Admitting Physician: Cheo Gracia <Cheo Gracia - Last Filed: 04/13/17 20:46> Results - Vital Signs Recent Vital Signs: Last Vital Signs Temp 98 F 04/13/17 16:00 Pulse 70 04/13/17 17:28 Resp 20 04/13/17 16:00 BP 140/74 04/13/17 17:28 Pulse Ox 97 04/13/17 16:00 - Labs Result Diagrams: 04/07/17 06:59 04/13/17 07:00 Labs: Laboratory Results - last 24 hr 04/12/17 04/13/17 04/13/17 21:24 07:00 07:00 PT 34.9 H* INR 3.23 H Sodium 137 Potassium 4.5 Chloride 96 L Carbon Dioxide 31 Anion Gap 15 BUN 41 H Creatinine 1.7 H Est GFR ( Amer) 51 Est GFR (Non-Af Amer) 42 POC Glucose (mg/dL) 132 H Random Glucose 98 Calcium 9.7 Magnesium 1.8 Total Bilirubin 0.5 AST 32 ALT 39 Alkaline Phosphatase 170 H Total Protein 8.4 H Albumin 3.9 Globulin 4.5 Albumin/Globulin Ratio 0.9 L Urine Color Urine Appearance Urine pH Ur Specific [place] Urine Protein Urine Glucose (UA) Urine Ketones Urine Blood Urine Nitrate Urine Bilirubin Urine Urobilinogen Ur Leukocyte Esterase Urine RBC Urine WBC Ur Epithelial Cells Urine Bacteria Ur Random Creatinine 04/13/17 04/13/17 04/13/17 07:20 07:49 09:14 PT INR Sodium Potassium Chloride Carbon Dioxide Anion Gap BUN Creatinine Est GFR ( Amer) Est GFR (Non-Af Amer) POC Glucose (mg/dL) 115 H Random Glucose Calcium Magnesium Total Bilirubin AST ALT Alkaline Phosphatase Total Protein Albumin Globulin Albumin/Globulin Ratio Urine Color Light yellow Urine Appearance Clear Urine pH 6.0 Ur Specific [place] 1.010 Urine Protein 30 H Urine Glucose (UA) Negative Urine Ketones Negative Urine Blood Trace-lysed H Urine Nitrate Negative Urine Bilirubin Negative Urine Urobilinogen 0.2 Ur Leukocyte Esterase Negative Urine RBC 0 - 2 Urine WBC 0 - 2 Ur Epithelial Cells 0 - 2 Urine Bacteria Few Ur Random Creatinine 51 04/13/17 11:29 PT INR Sodium Potassium Chloride Carbon Dioxide Anion Gap BUN Creatinine Est GFR ( Amer) Est GFR (Non-Af Amer) POC Glucose (mg/dL) 115 H Random Glucose Calcium Magnesium Total Bilirubin AST ALT Alkaline Phosphatase Total Protein Albumin Globulin Albumin/Globulin Ratio Urine Color Urine Appearance Urine pH Ur Specific [place] Urine Protein Urine Glucose (UA) Urine Ketones Urine Blood Urine Nitrate Urine Bilirubin Urine Urobilinogen Ur Leukocyte Esterase Urine RBC Urine WBC Ur Epithelial Cells Urine Bacteria Ur Random Creatinine Attending/Attestation - Attestation I have personally seen and examined this patient.: Yes I have fully participated in the care of the patient.: Yes I have reviewed all pertinent clinical information: Yes
[2017-04-01] MEDS ORDERED: Vancomycin 1 g Inj IVPB SCH (00:45)
[2017-04-01] MEDS ORDERED: Cefepime 1gm in NS 100ml 1 GM/100 ML BAG IVPB SCH (00:45)
[2017-04-01 00:56] LABS: INR 2.66 (0.93-1.08)
[2017-04-01] MEDS: oxyCODONE 20 mg ER Tab (oxyCONTIN) PO SCH ×2 (01:39→06:44)
[2017-04-01] MEDS: Levothyroxine 75 MCG TAB PO SCH (06:45)
[2017-04-01] MEDS: Pantoprazole 40 mg EC Tab PO SCH (06:45)
[2017-04-01 08:19] LABS: ADD MANUAL DIFF? NO
[2017-04-01 08:23] LABS: BASO # 0.04 K/mm3 (0.0-2.0); BASO % 0.6 % (0.0-3.0); EOS # 0.4 (0.0-0.7); EOS % 5.6 % (1.5-5.0); GRAN # 4.38 (1.4-6.5); GRAN % 69.8 % (50.0-68.0); HEMATOCRIT 30.9 % (42.0-52.0); LYMPH % 16.3 % (22.0-35.0); MEAN CELL VOLUME 86.3 fL (80.0-105.0); MEAN CORPUSCULAR HEMOGLOBIN 28.5 pg (25.0-35.0); MEAN PLATELET VOLUME 11.1 fl (7.0-11.0); MONO # 0.5 (0.1-0.6); MONO % 7.7 % (1.0-6.0); PLATELET COUNT 166 10^3/uL (120.0-450.0); RED CELL DISTRIBUTION WIDTH 13.9 % (11.5-14.5); WHITE BLOOD COUNT 6.3 10^3/ul (4.5-11.0)
--- NOTE | 2017-04-01 08:34 | CP.PCM.CON ---
<Hussain Nolasco - Last Filed: 04/01/17 11:38> History of Present Illness - History of Present Illness History of Present Illness: Hussain Nolasco D.O. PGY-1, General Surgery Consultation Note 56 year old male with a PMH of morbid obesity, CHF, HTN, HLD, DM, hypothyroidism , chronic pain, and pressure ulcers of the thighs, buttocks, and lower legs due to immobility, who presented to [facility] with complaints of lower extremity swelling and leg weeping and sacral wounds. Patient was seen and examined at bedside. Patient notes that he has a lot of issues with his sacral wounds, states that they are very painful to the touch, admits to some chills over last few days but no N/V/D/C/fevers, and states that its too painful for him to sit. Patient denies checking his blood sugars frequently but admits that he does take his metformin as indicated and has monthly doctors visits, although he cannot recall his HgbA1c. Review of Systems - Review of Systems All systems: reviewed and no additional remarkable complaints except - Cardiovascular Cardiovascular: Leg Edema, Pedal Edema - Integumentary Integumentary: Changing Lesions, New Lesions, Swelling, Wounds Past Patient History - Infectious Disease Hx of Infectious Diseases: None - Tetanus Immunizations Tetanus Immunization: Unknown - Past Medical History & Family History Past Medical History?: Yes - Past Social History Smoking Status: Never Smoked - CARDIAC Hx Congestive Heart Failure: Yes Hx Hypertension: Yes Hx Peripheral Edema: Yes (+4 edema) - PULMONARY Hx Asthma: Yes Hx Chronic Obstructive Pulmonary Disease (COPD): Yes Hx Pneumonia: Yes Hx Pulmonary Embolism: Yes Hx Sleep Apnea: Yes - NEUROLOGICAL Hx Neurological Disorder: No - HEENT Hx HEENT Problems: No - RENAL Hx Chronic Kidney Disease: No - ENDOCRINE/METABOLIC Hx Hyperthyroidism: Yes Hx Hypothyroidism: Yes - HEMATOLOGICAL/ONCOLOGICAL Hx Blood Disorders: No - INTEGUMENTARY Hx Dermatological Problems: Yes Hx Cellulitis: Yes (BLE) Other/Comment: both leggs discolored - MUSCULOSKELETAL/RHEUMATOLOGICAL Hx Arthritis: Yes Hx Fractures: Yes - GASTROINTESTINAL Hx Gastrointestinal Disorders: Yes - GENITOURINARY/GYNECOLOGICAL Hx Genitourinary Disorders: No - PSYCHIATRIC Hx Depression: Yes Hx Substance Use: No - SURGICAL HISTORY Hx Orthopedic Surgery: Yes (bilateral knee replacement) Other/Comment: total left knee - 1998. right ankle screws - 1987. right hip jason - 1982 - ANESTHESIA Hx Anesthesia: Yes Hx Anesthesia Reactions: No Hx Malignant Hyperthermia: No Meds Allergies/Adverse Reactions: Allergies Allergy/AdvReac Type Severity Reaction Status Date / Time No Known Allergies Allergy Verified 02/08/17 22:09 - Medications Medications: Current Medications Acetaminophen (Tylenol 325mg Tab) 650 mg PO Q6H PRN PRN Reason: Fever >100.4 F Clonidine HCl (Catapres) 0.1 mg PO BID [facility] Docusate Sodium (Colace) 100 mg PO TID [facility] Finasteride (Proscar) 5 mg PO DAILY [facility] Furosemide (Lasix) 40 mg PO BID [facility] Linezolid (Zyvox 600mg/300ml D5w) 600 mg in 300 mls @ 200 mls/hr IVPB Q12 [facility] PRN Reason: Protocol Stop: 04/08/17 10:01 Insulin Human Lispro (Humalog) 0 units SC ACHS [facility] PRN Reason: Protocol Levothyroxine Sodium (Synthroid) 75 mcg PO DAILY@0630 [facility] Last Admin: 04/01/17 06:45 Dose: 75 mcg Lidocaine (Lidoderm) 1 ea TD DAILY [facility] Lisinopril (Zestril) 5 mg PO DAILY [facility] Metoprolol Tartrate (Lopressor) 25 mg PO DAILY [facility] Nystatin (Nystop Topical Powder) 0 gm TOP Q6H PRN PRN Reason: Rash Oxycodone HCl (Oxycontin Extended Release Tab) 40 mg PO Q6 [facility] Last Admin: 04/01/17 06:44 Dose: 40 mg Oxycodone/Acetaminophen (Percocet 5/325 Mg Tab) 2 tab PO Q4H PRN PRN Reason: Pain, severe (8-10) Stop: 04/03/17 23:36 Pantoprazole Sodium (Protonix Ec Tab) 40 mg PO ACB [facility] Last Admin: 04/01/17 06:45 Dose: 40 mg Warfarin Sodium (Coumadin) 10 mg PO 1800 [facility] PRN Reason: Protocol Physical Exam - Constitutional Additional comments: super obese male, NAD - Head Exam Head Exam: ATRAUMATIC, NORMOCEPHALIC - Eye Exam Eye Exam: EOMI, Normal appearance - ENT Exam ENT Exam: Mucous Membranes Moist - Neck Exam Additional comments: large, supple - Respiratory Exam Respiratory Exam: absent: Accessory Muscle Use, Respiratory Distress - GI/Abdominal Exam GI & Abdominal Exam: Soft. absent: Distended, Guarding - Extremities Exam Extremities exam: Positive for: pedal edema, tenderness Additional comments: chronic venous stasis appearance to BL LE, multiple weeping wounds, superficial bottom buttock/upper thigh excoriations, erythema at skin folds with some serous discharge, not malodorous, no thickness loss, tender - Neurological Exam Neurological exam: Alert, Oriented x3 - Skin Additional comments: wounds on legs and thighs as described above Results - Vital Signs Recent Vital Signs: Last Vital Signs Temp 98.2 F 04/01/17 08:20 Pulse 78 04/01/17 08:20 Resp 20 04/01/17 08:20 BP 134/82 04/01/17 08:20 Pulse Ox 97 04/01/17 08:20 - Labs Result Diagrams: 04/01/17 07:00 04/01/17 07:00 Labs: Laboratory Results - last 24 hr 04/01/17 04/01/17 00:35 08:09 PT 28.7 H INR 2.66 H POC Glucose (mg/dL) 115 H Assessment & Plan - Assessment and Plan (Free Text) Assessment: 56 year old super obese male with pressure ulcers of the thighs, buttocks, and lower legs due to immobility. Plan: Infragluteal folds/posterior upper thigh excoriations Wound care consulted Use medihoney Placed optoform at bedside No surgical indications at this time Patient does appear to have drug seeking behaviors We will follow, medical management per primary team, discussed with them Discussed with attending physician. Thank you for the pleasure of participating in the care of this patient. - Date & Time Date: 04/01/17 Time: 07:20 <Jhon Palomino - Last Filed: 04/02/17 11:10> Meds - Medications Medications: Current Medications Acetaminophen (Tylenol 325mg Tab) 650 mg PO Q6H PRN PRN Reason: Fever >100.4 F Clonidine HCl (Catapres) 0.1 mg PO BID [facility] Last Admin: 04/02/17 09:49 Dose: 0.1 mg Docusate Sodium (Colace) 100 mg PO TID [facility] Last Admin: 04/02/17 09:49 Dose: Not Given Finasteride (Proscar) 5 mg PO DAILY [facility] Last Admin: 04/02/17 09:49 Dose: 5 mg Furosemide (Lasix) 40 mg PO BID [facility] Last Admin: 04/02/17 09:49 Dose: 40 mg Linezolid (Zyvox 600mg/300ml D5w) 600 mg in 300 mls @ 200 mls/hr IVPB Q12 [facility] PRN Reason: Protocol Stop: 04/08/17 10:01 Last Admin: 04/02/17 09:49 Dose: 200 mls/hr Insulin Human Lispro (Humalog) 0 units SC ACHS [facility] PRN Reason: Protocol Last Admin: 04/02/17 09:40 Dose: Not Given Levothyroxine Sodium (Synthroid) 75 mcg PO DAILY@0630 [facility] Last Admin: 04/02/17 05:41 Dose: 75 mcg Lidocaine (Lidoderm) 1 ea TD DAILY [facility] Last Admin: 04/02/17 09:54 Dose: 1 ea Lisinopril (Zestril) 5 mg PO DAILY [facility] Last Admin: 04/02/17 09:49 Dose: 5 mg Metoprolol Tartrate (Lopressor) 25 mg PO DAILY [facility] Last Admin: 04/02/17 09:49 Dose: 25 mg Multivitamins (Thera Tab) 1 tab PO DAILY [facility] Last Admin: 04/02/17 09:48 Dose: 1 tab Nystatin (Nystop Topical Powder) 0 gm TOP Q6H PRN PRN Reason: Rash Oxycodone HCl (Oxycontin Extended Release Tab) 80 mg PO Q6 [facility] Last Admin: 04/02/17 05:41 Dose: 80 mg Oxycodone/Acetaminophen (Percocet 5/325 Mg Tab) 2 tab PO Q4H PRN PRN Reason: Pain, severe (8-10) Stop: 04/03/17 23:36 Last Admin: 04/02/17 05:41 Dose: 2 tab Pantoprazole Sodium (Protonix Ec Tab) 40 mg PO ACB [facility] Last Admin: 04/02/17 09:48 Dose: 40 mg Warfarin Sodium (Coumadin) 10 mg PO 1800 [facility] PRN Reason: Protocol Last Admin: 04/01/17 17:10 Dose: 10 mg Zinc Sulfate (Zinc Sulfate 220 Mg Cap) 220 mg PO DAILY [facility] Last Admin: 04/02/17 09:48 Dose: 220 mg Results - Vital Signs Recent Vital Signs: Last Vital Signs Temp 97.9 F 04/02/17 07:30 Pulse 85 04/02/17 09:49 Resp 20 04/02/17 07:30 BP 133/78 04/02/17 09:49 Pulse Ox 96 04/02/17 07:30 - Labs Result Diagrams: 04/02/17 05:00 04/02/17 05:00 Labs: Laboratory Results - last 24 hr 04/01/17 04/01/17 04/01/17 07:30 16:15 21:34 WBC RBC Hgb Hct MCV MCH MCHC RDW Plt Count MPV Gran % Lymph % (Auto) [place] % (Auto) Eos % (Auto) Baso % (Auto) Gran # Lymph # [place] # Eos # Baso # PT INR Sodium Potassium Chloride Carbon Dioxide Anion Gap BUN Creatinine Est GFR ( Amer) Est GFR (Non-Af Amer) POC Glucose (mg/dL) 127 H 185 H Random Glucose Calcium Magnesium Total Bilirubin AST ALT Alkaline Phosphatase C-React Prot High Sens > 15.00 H Total Protein Albumin Globulin Albumin/Globulin Ratio 04/02/17 04/02/17 04/02/17 05:00 05:00 08:00 WBC 4.6 D RBC 3.70 Hgb 10.4 L Hct 32.2 L MCV 87.0 MCH 28.1 MCHC 32.3 RDW 13.9 Plt Count 162 MPV 11.6 H Gran % 61.4 Lymph % (Auto) 25.9 [place] % (Auto) 6.8 H Eos % (Auto) 5.5 H Baso % (Auto) 0.4 Gran # 2.80 Lymph # 1.2 [place] # 0.3 Eos # 0.3 Baso # 0.02 PT 17.7 H INR 1.64 H Sodium 138 Potassium 3.8 Chloride 99 Carbon Dioxide 33 Anion Gap 10 BUN 16 Creatinine 1.2 Est GFR ( Amer) > 60 Est GFR (Non-Af Amer) > 60 POC Glucose (mg/dL) Random Glucose 107 Calcium 8.8 Magnesium 1.5 L Total Bilirubin 0.3 AST 17 ALT 24 Alkaline Phosphatase 108 C-React Prot High Sens Total Protein 7.1 Albumin 3.4 Globulin 3.7 Albumin/Globulin Ratio 0.9 L 04/02/17 08:01 WBC RBC Hgb Hct MCV MCH MCHC RDW Plt Count MPV Gran % Lymph % (Auto) [place] % (Auto) Eos % (Auto) Baso % (Auto) Gran # Lymph # [place] # Eos # Baso # PT INR Sodium Potassium Chloride Carbon Dioxide Anion Gap BUN Creatinine Est GFR ( Amer) Est GFR (Non-Af Amer) POC Glucose (mg/dL) 107 Random Glucose Calcium Magnesium Total Bilirubin AST ALT Alkaline Phosphatase C-React Prot High Sens Total Protein Albumin Globulin Albumin/Globulin Ratio Assessment & Plan - Assessment and Plan (Free Text) Assessment: Dx R Buttock Ulcer Pain(?Increasing)R/O Drug Seeking Behavior Mult other comorbidities:Chronic Post Phlebitic Syndrome/Bed-ridden Rx CT to evaluate for deeper infection(Collection) or Possible Osteomyelitis Pending report 04/02/2017 robert continue present regimen(Pt Understands and agrees to study0 This consult done under my direct supervision. Jalil Palomino MD FACS
[2017-04-01] MEDS: Insulin Lispro 1 UNITS/0.01 ML SC SCH ×4 (08:51→21:34)
[2017-04-01 09:05] LABS: ALB/GLOB RATIO 0.9 (1.1-1.8); ALKALINE PHOSPHATASE 112 U/L (38-133); ALT/SGPT 28 U/L (7-56); AST/SGOT 17 U/L (15-59); BILIRUBIN,TOTAL 0.2 mg/dL (0.2-1.3); BLOOD UREA NITROGEN 15 mg/dL (7-21); CALCIUM 8.3 mg/dL (8.4-10.5); CARBON DIOXIDE 30 mmol/L (21-33); CHLORIDE 99 mmol/L (98-107); GFR AFRICAN-AMERICAN > 60; GLUCOSE,RANDOM 116 mg/dL (70-110); POTASSIUM 3.3 mmol/L (3.6-5.0); SODIUM 136 mmol/L (132-148); TOTAL PROTEIN 7.1 g/dL (5.8-8.3)
[2017-04-01] MEDS: Linezolid 600 mg in D5W 300 ml 600 MG/300 ML BAG IVPB SCH ×2 (09:18→21:56)
[2017-04-01 09:19] LABS: INR 2.37 (0.93-1.08)
[2017-04-01] MEDS: Lidocaine 5% Patch TD SCH (09:23)
[2017-04-01] MEDS ORDERED: Potassium Chloride 20 mEq ER Tab PO ONE (09:36)
[2017-04-01] MEDS: Oxycodone/Acetaminophen 5/325 mg Tab PO PRN ×3 (11:00→23:10)
[2017-04-01] MEDS: oxyCODONE 80 mg ER Tab (oxyCONTIN) PO SCH ×3 (11:00→23:11)
--- NOTE | 2017-04-01 11:26 | CP.PCM.CON ---
History of Present Illness - History of Present Illness History of Present Illness: 56 year old male with PMH of Morbid obesity with BMI of 43, DM, HTN, COPD, hypothyroidism, bilateral lower extremity swelling due to venous stasis, Osteoarthritis, Chronic pain syndrome was recently in [facility] because of leg infection with chronic ulcers (January 2017). He was given antibiotics and was doing well with visiting nurse changing his leg dressings. However, over the past week the dressings had to be changed more frequently, there is more pain and she is having difficulty ambulating. The patient denies fever or chills, no nausea or vomiting, no chest pain, no SOB, no headache or dizziness, no abdominal pain, no cough or rhinorrhea, no sore throat, no diarrhea, no dysuria. He also denies animal contacts, no swimming, no wading in water, no travel to wooded areas, no walking barefoot on soil. Infectious Diseases consult is requested to further evaluate and manage. During previous admission, wound cx grew MDR pesudomonas and MRSA. Review of Systems - Review of Systems All systems: reviewed and no additional remarkable complaints except (as per HPI ) Past Patient History - Infectious Disease Hx of Infectious Diseases: None - Tetanus Immunizations Tetanus Immunization: Unknown - Past Medical History & Family History Past Medical History?: Yes - Past Social History Smoking Status: Never Smoked - CARDIAC Hx Congestive Heart Failure: Yes Hx Hypertension: Yes Hx Peripheral Edema: Yes (+4 edema) - PULMONARY Hx Asthma: Yes Hx Chronic Obstructive Pulmonary Disease (COPD): Yes Hx Pneumonia: Yes Hx Pulmonary Embolism: Yes Hx Sleep Apnea: Yes - NEUROLOGICAL Hx Neurological Disorder: No - HEENT Hx HEENT Problems: No - RENAL Hx Chronic Kidney Disease: No - ENDOCRINE/METABOLIC Hx Hyperthyroidism: Yes Hx Hypothyroidism: Yes - HEMATOLOGICAL/ONCOLOGICAL Hx Blood Disorders: No - INTEGUMENTARY Hx Dermatological Problems: Yes Hx Cellulitis: Yes (BLE) Other/Comment: both leggs discolored - MUSCULOSKELETAL/RHEUMATOLOGICAL Hx Arthritis: Yes Hx Fractures: Yes - GASTROINTESTINAL Hx Gastrointestinal Disorders: Yes - GENITOURINARY/GYNECOLOGICAL Hx Genitourinary Disorders: No - PSYCHIATRIC Hx Depression: Yes Hx Substance Use: No - SURGICAL HISTORY Hx Orthopedic Surgery: Yes (bilateral knee replacement) Other/Comment: total left knee - 1998. right ankle screws - 1987. right hip jason - 1982 - ANESTHESIA Hx Anesthesia: Yes Hx Anesthesia Reactions: No Hx Malignant Hyperthermia: No Meds Allergies/Adverse Reactions: Allergies Allergy/AdvReac Type Severity Reaction Status Date / Time No Known Allergies Allergy Verified 02/08/17 22:09 - Medications Medications: Current Medications Acetaminophen (Tylenol 325mg Tab) 650 mg PO Q6H PRN PRN Reason: Fever >100.4 F Clonidine HCl (Catapres) 0.1 mg PO BID [facility] Docusate Sodium (Colace) 100 mg PO TID [facility] Finasteride (Proscar) 5 mg PO DAILY [facility] Furosemide (Lasix) 40 mg PO BID [facility] Cefepime HCl (Maxipime 1gm) 1 gm in 100 mls @ 100 mls/hr IVPB Q8 [facility] PRN Reason: Protocol Last Admin: 04/01/17 02:21 Dose: 100 mls/hr Vancomycin HCl (Vancomycin 1gm) 1 gm in 250 mls @ 167 mls/hr IVPB Q12H [facility] Insulin Human Lispro (Humalog) 0 units SC ACHS [facility] PRN Reason: Protocol Levothyroxine Sodium (Synthroid) 75 mcg PO DAILY@0630 [facility] Lidocaine (Lidoderm) 1 ea TD DAILY [facility] Lisinopril (Zestril) 5 mg PO DAILY [facility] Metoprolol Tartrate (Lopressor) 25 mg PO DAILY [facility] Nystatin (Nystop Topical Powder) 0 gm TOP Q6H [facility]N PRN Reason: Rash Oxycodone HCl (Oxycontin Extended Release Tab) 40 mg PO Q6 [facility] Last Admin: 04/01/17 01:39 Dose: 40 mg Oxycodone/Acetaminophen (Percocet 5/325 Mg Tab) 2 tab PO Q4H PRN PRN Reason: Pain, severe (8-10) Stop: 04/03/17 23:36 Pantoprazole Sodium (Protonix Ec Tab) 40 mg PO ACB [facility] Warfarin Sodium (Coumadin) 10 mg PO 1800 [facility] PRN Reason: Protocol Physical Exam - Constitutional Appears: Non-toxic, No Acute Distress - Head Exam Head Exam: NORMAL INSPECTION - ENT Exam ENT Exam: Mucous Membranes Moist - Neck Exam Neck exam: Negative for: Lymphadenopathy, Meningismus - Respiratory Exam Respiratory Exam: Decreased Breath Sounds - Cardiovascular Exam Cardiovascular Exam: +S1, +S2 - GI/Abdominal Exam GI & Abdominal Exam: Soft. absent: Tenderness - Extremities Exam Additional comments: both legs with dressings in place Results - Vital Signs Recent Vital Signs: Last Vital Signs Temp 98.6 F 04/01/17 01:51 Pulse 78 04/01/17 02:27 Resp 16 04/01/17 02:27 BP 110/60 04/01/17 01:51 Pulse Ox 99 04/01/17 02:27 - Labs Result Diagrams: 04/01/17 07:00 04/01/17 07:00 Labs: Laboratory Results - last 24 hr 04/01/17 00:35 PT 28.7 H INR 2.66 H Assessment & Plan - Assessment and Plan (Free Text) Plan: Assessment Consider skin and skin structure infection with bilateral leg infected ulcers in a patient with recurrent leg infections and venous stasis, previously growing MRSA and multidrug resistant Pseudomonas S/P wound vacuum placement for upper thigh wounds history of Skin and skin structure infection of the left lower extremity with Pseudomonas, Enterococcus and MRSA in a patient with recurrent left leg infection Morbid obesity with BMI of 43 DM HTN COPD hyopthyroidism bilateral lower extremity swelling due to venous stasis Osteoarthritis Chronic pain syndrome Plan started patient on Zyvox and will await blood, wound cx, Podiatry and Surgery evaluation will monitor clinically
[2017-04-01] MEDS ORDERED: Vancomycin 1gm in NS 250ml 1 GM/250 ML BAG IVPB SCH (12:30)
--- NOTE | 2017-04-01 14:33 | CARD ---
APPROVED REPORT EKG Measurement Heart [id number] <Conclusion> Normal sinus rhythm NSSTW changes Q in 3
--- NOTE | 2017-04-01 14:52 | CP.PCM.CON ---
<Alec Bateman - Last Filed: 04/01/17 14:46> History of Present Illness - History of Present Illness History of Present Illness: 56 y/o male with PMH of Asthma , CAD, Hypertension, HLD, Hyperthyroidism/ Hypothyroidism , CHF, depression, DM, PE, DVT, fibromyalgia,S/P IVC filter seen at bedside with attending Dr. Daniels for bilateral venous stasis ulcerations of the lower extremities. Pt is well know to podiatry service for tis issue due to recurrence of ulcerations as a result of poor outpatient compliance. Patient states that he is unable to ambulate anymore because he is in too much pain. Patient states that he has a lot of pain and swelling in his legs. He denies n/f /v/c/d/sob. Past Patient History - Infectious Disease Hx of Infectious Diseases: None - Tetanus Immunizations Tetanus Immunization: Unknown - Past Medical History & Family History Past Medical History?: Yes - Past Social History Smoking Status: Never Smoked - CARDIAC Hx Congestive Heart Failure: Yes Hx Hypertension: Yes Hx Peripheral Edema: Yes (+4 edema) - PULMONARY Hx Asthma: Yes Hx Chronic Obstructive Pulmonary Disease (COPD): Yes Hx Pneumonia: Yes Hx Pulmonary Embolism: Yes Hx Sleep Apnea: Yes - NEUROLOGICAL Hx Neurological Disorder: No - HEENT Hx HEENT Problems: No - RENAL Hx Chronic Kidney Disease: No - ENDOCRINE/METABOLIC Hx Hyperthyroidism: Yes Hx Hypothyroidism: Yes - HEMATOLOGICAL/ONCOLOGICAL Hx Blood Disorders: No - INTEGUMENTARY Hx Dermatological Problems: Yes Hx Cellulitis: Yes (BLE) Other/Comment: both leggs discolored - MUSCULOSKELETAL/RHEUMATOLOGICAL Hx Arthritis: Yes Hx Fractures: Yes - GASTROINTESTINAL Hx Gastrointestinal Disorders: Yes - GENITOURINARY/GYNECOLOGICAL Hx Genitourinary Disorders: No - PSYCHIATRIC Hx Depression: Yes Hx Substance Use: No - SURGICAL HISTORY Hx Orthopedic Surgery: Yes (bilateral knee replacement) Other/Comment: total left knee - 1998. right ankle screws - 1987. right hip jason - 1982 - ANESTHESIA Hx Anesthesia: Yes Hx Anesthesia Reactions: No Hx Malignant Hyperthermia: No Meds Allergies/Adverse Reactions: Allergies Allergy/AdvReac Type Severity Reaction Status Date / Time No Known Allergies Allergy Verified 02/08/17 22:09 - Medications Medications: Current Medications Acetaminophen (Tylenol 325mg Tab) 650 mg PO Q6H PRN PRN Reason: Fever >100.4 F Clonidine HCl (Catapres) 0.1 mg PO BID [facility] Last Admin: 04/01/17 09:24 Dose: 0.1 mg Docusate Sodium (Colace) 100 mg PO TID [facility] Last Admin: 04/01/17 14:12 Dose: Not Given Finasteride (Proscar) 5 mg PO DAILY [facility] Last Admin: 04/01/17 09:24 Dose: 5 mg Furosemide (Lasix) 40 mg PO BID [facility] Last Admin: 04/01/17 09:26 Dose: 40 mg Linezolid (Zyvox 600mg/300ml D5w) 600 mg in 300 mls @ 200 mls/hr IVPB Q12 [facility] PRN Reason: Protocol Stop: 04/08/17 10:01 Last Admin: 04/01/17 09:18 Dose: 200 mls/hr Insulin Human Lispro (Humalog) 0 units SC ACHS [facility] PRN Reason: Protocol Last Admin: 04/01/17 12:27 Dose: Not Given Levothyroxine Sodium (Synthroid) 75 mcg PO DAILY@0630 [facility] Last Admin: 04/01/17 06:45 Dose: 75 mcg Lidocaine (Lidoderm) 1 ea TD DAILY [facility] Last Admin: 04/01/17 09:23 Dose: 1 ea Lisinopril (Zestril) 5 mg PO DAILY [facility] Last Admin: 04/01/17 09:24 Dose: 5 mg Metoprolol Tartrate (Lopressor) 25 mg PO DAILY [facility] Last Admin: 04/01/17 09:24 Dose: 25 mg Multivitamins (Thera Tab) 1 tab PO DAILY [facility] Nystatin (Nystop Topical Powder) 0 gm TOP Q6H PRN PRN Reason: Rash Oxycodone HCl (Oxycontin Extended Release Tab) 80 mg PO Q6 [facility] Last Admin: 04/01/17 11:00 Dose: 80 mg Oxycodone/Acetaminophen (Percocet 5/325 Mg Tab) 2 tab PO Q4H PRN PRN Reason: Pain, severe (8-10) Stop: 04/03/17 23:36 Last Admin: 04/01/17 11:00 Dose: 2 tab Pantoprazole Sodium (Protonix Ec Tab) 40 mg PO ACB [facility] Last Admin: 04/01/17 06:45 Dose: 40 mg Warfarin Sodium (Coumadin) 10 mg PO 1800 [facility] PRN Reason: Protocol Zinc Sulfate (Zinc Sulfate 220 Mg Cap) 220 mg PO DAILY [facility] Physical Exam - Constitutional Appears: Well, Non-toxic, No Acute Distress - Extremities Exam Additional comments: Vasc: Non-palpable pedal pulses due to edema b/l, TG warm to warm, CFT < 3 sec to all digits, +1 pitting edema Neuro: grossly diminished Derm: +1 pitting edema to legs bilateral, localized erythema to mid-calf bilateral. Cellulitis localized to superficial ulcerations along: Left lateral mid-leg region with active serous drainage absent undermining on a granular fibrotic base with jamila-wound macerations Right distal 1/3 of leg , superficial open lesions on the posterior aspect of left leg, medial aspect of right leg- granular base, no purulence, minor serous drainage, no active bleeding, no undermining, no tracking, no probe to bone MUSC: pain on palpation of posterior and medial legs b/l - Neurological Exam Neurological exam: Alert, Oriented x3 - Psychiatric Exam Psychiatric exam: Depressed, Normal Affect Results - Vital Signs Recent Vital Signs: Last Vital Signs Temp 98.2 F 04/01/17 08:20 Pulse 85 04/01/17 09:24 Resp 20 04/01/17 08:20 BP 135/85 04/01/17 09:26 Pulse Ox 97 04/01/17 08:20 - Labs Result Diagrams: 04/01/17 07:00 04/01/17 07:00 Labs: Laboratory Results - last 24 hr 04/01/17 04/01/17 04/01/17 00:35 05:55 07:00 WBC 6.3 RBC 3.58 Hgb 10.2 L Hct 30.9 L MCV 86.3 MCH 28.5 MCHC 33.0 RDW 13.9 Plt Count 166 MPV 11.1 H Gran % 69.8 H Lymph % (Auto) 16.3 L [place] % (Auto) 7.7 H Eos % (Auto) 5.6 H Baso % (Auto) 0.6 Gran # 4.38 Lymph # 1.0 L [place] # 0.5 Eos # 0.4 Baso # 0.04 ESR 76 H PT 28.7 H INR 2.66 H Sodium Potassium Chloride Carbon Dioxide Anion Gap BUN Creatinine Est GFR ( Amer) Est GFR (Non-Af Amer) POC Glucose (mg/dL) Random Glucose Calcium Total Bilirubin AST ALT Alkaline Phosphatase Total Protein Albumin Globulin Albumin/Globulin Ratio 04/01/17 04/01/17 04/01/17 07:00 07:30 08:09 WBC RBC Hgb Hct MCV MCH MCHC RDW Plt Count MPV Gran % Lymph % (Auto) [place] % (Auto) Eos % (Auto) Baso % (Auto) Gran # Lymph # [place] # Eos # Baso # ESR PT 25.6 H INR 2.37 H Sodium 136 Potassium 3.3 L Chloride 99 Carbon Dioxide 30 Anion Gap 10 BUN 15 Creatinine 1.2 Est GFR ( Amer) > 60 Est GFR (Non-Af Amer) > 60 POC Glucose (mg/dL) 115 H Random Glucose 116 H Calcium 8.3 L Total Bilirubin 0.2 AST 17 ALT 28 Alkaline Phosphatase 112 Total Protein 7.1 Albumin 3.3 Globulin 3.8 Albumin/Globulin Ratio 0.9 L Assessment & Plan - Assessment and Plan (Free Text) Assessment: 56 y/o male with PMH of Asthma , CAD, Hypertension, HLD, Hyperthyroidism/ Hypothyroidism , CHF, depression, DM, PE, DVT, fibromyalgia,S/P IVC filter seen at bedside for 1) cellulitis and bilateral superficial venous stasis ulcerations Plan: patient evaluated and seen at bedside with attending Dr. Daniels labs and vitals reviewed; afebrile, WBC 6.3 continue IV abx per ID cleansed legs with saline. Right leg dressed with skin protectant and DSD. Left leg dressed with xeroform, ABD, kerlix to bilateral legs patient encouraged to begin ambulating as tolerated. podiatry will continue to monitor while patient remains in house - Date & Time Date: 04/01/17 Time: 14:45 <Preeti Daniels - Last Filed: 04/05/17 19:14> Meds - Medications Medications: Current Medications Acetaminophen (Tylenol 325mg Tab) 650 mg PO Q6H PRN PRN Reason: Fever >100.4 F Clonidine HCl (Catapres) 0.1 mg PO BID [facility] Last Admin: 04/05/17 18:11 Dose: 0.1 mg Diltiazem HCl (Cardizem Cd) 180 mg PO DAILY [facility] Last Admin: 04/05/17 16:30 Dose: Not Given Docusate Sodium (Colace) 100 mg PO TID [facility] Last Admin: 04/05/17 18:12 Dose: Not Given Doxycycline Hyclate (Doryx) 100 mg PO Q12 [facility] PRN Reason: Protocol Stop: 04/11/17 22:01 Last Admin: 04/05/17 10:42 Dose: 100 mg Duloxetine HCl (Cymbalta) 30 mg PO DAILY [facility] Last Admin: 04/05/17 10:42 Dose: 30 mg Finasteride (Proscar) 5 mg PO DAILY [facility] Last Admin: 04/05/17 10:41 Dose: 5 mg Furosemide (Lasix) 40 mg PO BID [facility] Last Admin: 04/05/17 18:10 Dose: 40 mg Meropenem 1g/NS 100mL IVPB (Meropenem 1g/Ns 100ml Ivpb) 1 gm in 100 mls @ 100 mls/hr IVPB Q12 [facility] PRN Reason: Protocol Stop: 04/10/17 10:01 Last Admin: 04/05/17 10:41 Dose: 100 mls/hr Insulin Human Lispro (Humalog) 0 units SC ACHS [facility] PRN Reason: Protocol Last Admin: 04/05/17 16:30 Dose: Not Given Levothyroxine Sodium (Synthroid) 75 mcg PO DAILY@0630 [facility] Last Admin: 04/05/17 06:07 Dose: 75 mcg Lidocaine (Lidoderm) 1 ea TD DAILY [facility] Last Admin: 04/05/17 10:43 Dose: 1 ea Lisinopril (Zestril) 5 mg PO DAILY [facility] Last Admin: 04/05/17 10:42 Dose: 5 mg Magnesium Oxide (Mag-Ox) 400 mg PO BID [facility] Last Admin: 04/05/17 18:12 Dose: 400 mg Metoprolol Tartrate (Lopressor) 25 mg PO DAILY [facility] Last Admin: 04/05/17 10:42 Dose: 25 mg Multivitamins (Thera Tab) 1 tab PO DAILY [facility] Last Admin: 04/05/17 10:41 Dose: 1 tab Nystatin (Nystop Topical Powder) 0 gm TOP Q6H PRN PRN Reason: Rash Last Admin: 04/05/17 10:48 Dose: 1 applic Oxycodone HCl (Oxycontin Extended Release Tab) 80 mg PO Q6 [facility] Last Admin: 04/05/17 18:11 Dose: 80 mg Oxycodone/Acetaminophen (Percocet 5/325 Mg Tab) 2 tab PO Q4H PRN PRN Reason: Pain, moderate (4-7) Stop: 04/06/17 00:45 Last Admin: 04/05/17 18:11 Dose: 2 tab Pantoprazole Sodium (Protonix Ec Tab) 40 mg PO ACB [facility] Last Admin: 04/05/17 10:43 Dose: Not Given Warfarin Sodium (Coumadin) 10 mg PO 1800 [facility] Last Admin: 04/05/17 18:11 Dose: 10 mg Warfarin Sodium (Coumadin) 2.5 mg PO 1800 [facility] Last Admin: 04/05/17 18:11 Dose: 2.5 mg Zaleplon (Sonata) 10 mg PO HS [facility] Last Admin: 04/04/17 21:25 Dose: 10 mg Zinc Sulfate (Zinc Sulfate 220 Mg Cap) 220 mg PO DAILY [facility] Last Admin: 04/05/17 10:42 Dose: 220 mg Results - Vital Signs Recent Vital Signs: Last Vital Signs Temp 97.8 F 04/05/17 16:00 Pulse 55 L 04/05/17 16:30 Resp 18 04/05/17 16:00 BP 125/67 04/05/17 18:10 Pulse Ox 95 04/05/17 16:00 - Labs Result Diagrams: 04/05/17 08:19 04/05/17 08:19 Labs: Laboratory Results - last 24 hr 04/04/17 04/05/17 04/05/17 21:33 07:22 08:19 WBC 7.0 RBC 4.03 Hgb 11.5 L Hct 35.1 L MCV 87.1 MCH 28.5 MCHC 32.8 RDW 13.5 Plt Count 163 MPV 11.7 H Gran % 68.2 H Lymph % (Auto) 20.6 L [place] % (Auto) 5.9 Eos % (Auto) 4.9 Baso % (Auto) 0.4 Gran # 4.76 Lymph # 1.4 [place] # 0.4 Eos # 0.3 Baso # 0.03 Sodium Potassium Chloride Carbon Dioxide Anion Gap BUN Creatinine Est GFR ( Amer) Est GFR (Non-Af Amer) POC Glucose (mg/dL) 148 H 146 H Random Glucose Calcium Total Bilirubin AST ALT Alkaline Phosphatase Total Protein Albumin Globulin Albumin/Globulin Ratio 04/05/17 04/05/17 04/05/17 08:19 11:33 16:10 WBC RBC Hgb Hct MCV MCH MCHC RDW Plt Count MPV Gran % Lymph % (Auto) [place] % (Auto) Eos % (Auto) Baso % (Auto) Gran # Lymph # [place] # Eos # Baso # Sodium 137 Potassium 4.0 Chloride 94 L Carbon Dioxide 34 H Anion Gap 13 BUN 24 H Creatinine 1.2 Est GFR ( Amer) > 60 Est GFR (Non-Af Amer) > 60 POC Glucose (mg/dL) 126 H 104 Random Glucose 137 H Calcium 9.1 Total Bilirubin 0.3 AST 23 ALT 27 Alkaline Phosphatase 131 Total Protein 7.5 Albumin 3.5 Globulin 4.0 Albumin/Globulin Ratio 0.9 L Attending/Attestation - Attestation I have personally seen and examined this patient.: Yes I have fully participated in the care of the patient.: Yes I have reviewed all pertinent clinical information: Yes
--- NOTE | 2017-04-01 14:55 | CP.PCM.PN ---
<Jw Jacobs - Last Filed: 04/01/17 14:52> Subjective - Date & Time of Evaluation Date of Evaluation: 04/01/17 Time of Evaluation: 11:30 - Subjective Subjective: Patient evaluated at bedside. He complaints of acute on chronic b/l lower extremity pain, swelling and drainage from chronic distal LE and sacral wounds. States he noticed purulent drainage from buttocks wounds and presented to the hospital for care of this issue. He denies fever, chills, n/v/d, urinary complaints at this time. Objective - Vital Signs/Intake and Output Vital Signs (last 24 hours): Temp Pulse Resp BP Pulse Ox 98.2 F 85 20 135/85 97 04/01/17 08:20 04/01/17 09:24 04/01/17 08:20 04/01/17 09:26 04/01/17 08:20 - Medications Medications: Current Medications Acetaminophen (Tylenol 325mg Tab) 650 mg PO Q6H PRN PRN Reason: Fever >100.4 F Clonidine HCl (Catapres) 0.1 mg PO BID [facility] Last Admin: 04/01/17 09:24 Dose: 0.1 mg Docusate Sodium (Colace) 100 mg PO TID [facility] Last Admin: 04/01/17 14:12 Dose: Not Given Finasteride (Proscar) 5 mg PO DAILY [facility] Last Admin: 04/01/17 09:24 Dose: 5 mg Furosemide (Lasix) 40 mg PO BID [facility] Last Admin: 04/01/17 09:26 Dose: 40 mg Linezolid (Zyvox 600mg/300ml D5w) 600 mg in 300 mls @ 200 mls/hr IVPB Q12 [facility] PRN Reason: Protocol Stop: 04/08/17 10:01 Last Admin: 04/01/17 09:18 Dose: 200 mls/hr Insulin Human Lispro (Humalog) 0 units SC ACHS [facility] PRN Reason: Protocol Last Admin: 04/01/17 12:27 Dose: Not Given Levothyroxine Sodium (Synthroid) 75 mcg PO DAILY@0630 [facility] Last Admin: 04/01/17 06:45 Dose: 75 mcg Lidocaine (Lidoderm) 1 ea TD DAILY [facility] Last Admin: 04/01/17 09:23 Dose: 1 ea Lisinopril (Zestril) 5 mg PO DAILY [facility] Last Admin: 04/01/17 09:24 Dose: 5 mg Metoprolol Tartrate (Lopressor) 25 mg PO DAILY [facility] Last Admin: 04/01/17 09:24 Dose: 25 mg Multivitamins (Thera Tab) 1 tab PO DAILY [facility] Nystatin (Nystop Topical Powder) 0 gm TOP Q6H PRN PRN Reason: Rash Oxycodone HCl (Oxycontin Extended Release Tab) 80 mg PO Q6 [facility] Last Admin: 04/01/17 11:00 Dose: 80 mg Oxycodone/Acetaminophen (Percocet 5/325 Mg Tab) 2 tab PO Q4H PRN PRN Reason: Pain, severe (8-10) Stop: 04/03/17 23:36 Last Admin: 04/01/17 11:00 Dose: 2 tab Pantoprazole Sodium (Protonix Ec Tab) 40 mg PO ACB [facility] Last Admin: 04/01/17 06:45 Dose: 40 mg Warfarin Sodium (Coumadin) 10 mg PO 1800 [facility] PRN Reason: Protocol Zinc Sulfate (Zinc Sulfate 220 Mg Cap) 220 mg PO DAILY [facility] - Labs Labs: 04/01/17 07:00 04/01/17 07:00 PT 25.6 Seconds (9.9-11.8) H 04/01/17 07:30 INR 2.37 (0.93-1.08) H 04/01/17 07:30 - Constitutional Appears: No Acute Distress - Head Exam Head Exam: ATRAUMATIC, NORMOCEPHALIC - Eye Exam Eye Exam: EOMI, PERRL - ENT Exam ENT Exam: Mucous Membranes Moist - Neck Exam Neck Exam: Full ROM, Normal Inspection. absent: Lymphadenopathy - Respiratory Exam Respiratory Exam: Clear to Ausculation Bilateral. absent: Rales, Rhonchi, Wheezes - Cardiovascular Exam Cardiovascular Exam: REGULAR RHYTHM, +S1, +S2 - GI/Abdominal Exam GI & Abdominal Exam: Soft, Normal Bowel Sounds. absent: Tenderness - Extremities Exam Extremities Exam: Pedal Edema. absent: Calf Tenderness, Normal Inspection Additional comments: venous stasis b/l lower extremities. pitting edema extending proximal to b/l knees. - Neurological Exam Neurological Exam: Alert, Awake, Oriented x3 - Psychiatric Exam Psychiatric exam: Normal Affect, Normal Mood - Skin Skin Exam: Normal Color, Warm Additional comments: b/l infragluteal soft tissue ulcerations. chronic venous stasis skin changes to b/l lower extremities with chronic healing wounds. Assessment and Plan - Assessment and Plan (Free Text) Assessment: 56yo M admitted for b/l LE edema with venous stasis complicated by chronic bilateral wounds to the lower extremities bilaterally as well as b/l wounds involving gluteal folds. Leg Swelling/Pressure Ulcers - surgery following - no surgical intervention at this time. wound care to manage chronic non-healing wounds - ID following. continue abx as rec - cultures pending - no clinical evidence of sepsis HTN -c/w home clonidine hx CHF -c/w home meds -started zestril Hypothyroidism -c/w levothyroxine Chronic Pain -c/w current pain regiment from PMD Chronic DVT -warfarin 10mg daily -check INR adjust accordingly w antibiotics Proph Protonix Warfarin heart healthy diet <Jas Larios B - Last Filed: 04/06/17 07:48> Objective - Vital Signs/Intake and Output Vital Signs (last 24 hours): Temp Pulse Resp BP Pulse Ox 98.2 F 85 20 135/85 97 04/01/17 08:20 04/01/17 09:24 04/01/17 08:20 04/01/17 09:26 04/01/17 08:20 - Medications Medications: Current Medications Acetaminophen (Tylenol 325mg Tab) 650 mg PO Q6H PRN PRN Reason: Fever >100.4 F Clonidine HCl (Catapres) 0.1 mg PO BID [facility] Last Admin: 04/01/17 09:24 Dose: 0.1 mg Docusate Sodium (Colace) 100 mg PO TID [facility] Last Admin: 04/01/17 14:12 Dose: Not Given Finasteride (Proscar) 5 mg PO DAILY [facility] Last Admin: 04/01/17 09:24 Dose: 5 mg Furosemide (Lasix) 40 mg PO BID [facility] Last Admin: 04/01/17 09:26 Dose: 40 mg Linezolid (Zyvox 600mg/300ml D5w) 600 mg in 300 mls @ 200 mls/hr IVPB Q12 [facility] PRN Reason: Protocol Stop: 04/08/17 10:01 Last Admin: 04/01/17 09:18 Dose: 200 mls/hr Insulin Human Lispro (Humalog) 0 units SC ACHS [facility] PRN Reason: Protocol Last Admin: 04/01/17 12:27 Dose: Not Given Levothyroxine Sodium (Synthroid) 75 mcg PO DAILY@0630 [facility] Last Admin: 04/01/17 06:45 Dose: 75 mcg Lidocaine (Lidoderm) 1 ea TD DAILY [facility] Last Admin: 04/01/17 09:23 Dose: 1 ea Lisinopril (Zestril) 5 mg PO DAILY [facility] Last Admin: 04/01/17 09:24 Dose: 5 mg Metoprolol Tartrate (Lopressor) 25 mg PO DAILY [facility] Last Admin: 04/01/17 09:24 Dose: 25 mg Multivitamins (Thera Tab) 1 tab PO DAILY [facility] Nystatin (Nystop Topical Powder) 0 gm TOP Q6H PRN PRN Reason: Rash Oxycodone HCl (Oxycontin Extended Release Tab) 80 mg PO Q6 [facility] Last Admin: 04/01/17 11:00 Dose: 80 mg Oxycodone/Acetaminophen (Percocet 5/325 Mg Tab) 2 tab PO Q4H PRN PRN Reason: Pain, severe (8-10) Stop: 04/03/17 23:36 Last Admin: 04/01/17 11:00 Dose: 2 tab Pantoprazole Sodium (Protonix Ec Tab) 40 mg PO ACB [facility] Last Admin: 04/01/17 06:45 Dose: 40 mg Warfarin Sodium (Coumadin) 10 mg PO 1800 [facility] PRN Reason: Protocol Zinc Sulfate (Zinc Sulfate 220 Mg Cap) 220 mg PO DAILY [facility] - Labs Labs: 04/01/17 07:00 04/01/17 07:00 PT 25.6 Seconds (9.9-11.8) H 04/01/17 07:30 INR 2.37 (0.93-1.08) H 04/01/17 07:30 Attending/Attestation - Attestation I have personally seen and examined this patient.: Yes I have fully participated in the care of the patient.: Yes I have reviewed all pertinent clinical information, including history, physical exam and plan: Yes Notes (Text): I have seen and examined the patient at bedside. This is 56 year old male with history of HTN, CHF due to diastolic dysfunction, LE ulcers,COPD, JOSELUIS, chronic LE DVT, S/p IVC filter, Total Knee replacement, immobility, hypothyroidism, chronic pain, dyslipidemia, pressure ulcers on the back of thigh and buttocks who got admitted for evaluation of bilateral lower extremity edema, swelling and worsening pain. LE ultrasound pending. Surgery consult appreciated. No surgical intervention at this time. Wound care and podiatry consult pending. Continue empiric antibiotics. Continue clonidine, lisinopril, levothyroxine, coumadin and protonix. Patient states that he lives alone and needs help at home for ADL's and IADL's. Will consult keycase assembler. Upon discharge patient will follow up with Dr Gonzalez. Dr Jas Larios.
[2017-04-01] MEDS: Multivitamin Therapeutic Tab PO SCH (17:14)
--- NOTE | 2017-04-01 22:25 | CP.PCM.PCO ---
Physician Communication Note - Physician Communication Note Physician Communication Note: R Buttock ulcer almost healed BUTpainful-Need CT to r/o pathology
[2017-04-02] MEDS: Oxycodone/Acetaminophen 5/325 mg Tab PO PRN ×4 (05:41→23:21)
[2017-04-02] MEDS: oxyCODONE 80 mg ER Tab (oxyCONTIN) PO SCH ×4 (05:41→23:20)
[2017-04-02] MEDS: Levothyroxine 75 MCG TAB PO SCH (05:41)
[2017-04-02 07:34] LABS: ADD MANUAL DIFF? NO
[2017-04-02 07:38] LABS: BASO # 0.02 K/mm3 (0.0-2.0); BASO % 0.4 % (0.0-3.0); EOS # 0.3 (0.0-0.7); EOS % 5.5 % (1.5-5.0); GRAN % 61.4 % (50.0-68.0); HEMATOCRIT 32.2 % (42.0-52.0); LYMPH # 1.2 (1.2-3.4); LYMPH % 25.9 % (22.0-35.0); MEAN CORPUSCULAR HEMOGLOBIN 28.1 pg (25.0-35.0); MEAN CORPUSCULAR HGB CONC 32.3 g/dl (31.0-37.0); MEAN PLATELET VOLUME 11.6 fl (7.0-11.0); MONO # 0.3 (0.1-0.6); MONO % 6.8 % (1.0-6.0); PLATELET COUNT 162 10^3/uL (120.0-450.0); RED CELL DISTRIBUTION WIDTH 13.9 % (11.5-14.5); WHITE BLOOD COUNT 4.6 10^3/ul (4.5-11.0)
[2017-04-02 07:59] LABS: ALB/GLOB RATIO 0.9 (1.1-1.8); ALKALINE PHOSPHATASE 108 U/L (38-133); ALT/SGPT 24 U/L (7-56); AST/SGOT 17 U/L (15-59); BILIRUBIN,TOTAL 0.3 mg/dL (0.2-1.3); BLOOD UREA NITROGEN 16 mg/dL (7-21); CALCIUM 8.8 mg/dL (8.4-10.5); CARBON DIOXIDE 33 mmol/L (21-33); CHLORIDE 99 mmol/L (98-107); GFR AFRICAN-AMERICAN > 60; GLUCOSE,RANDOM 107 mg/dL (70-110); MAGNESIUM 1.5 mg/dL (1.7-2.2); POTASSIUM 3.8 mmol/L (3.6-5.0); SODIUM 138 mmol/L (132-148); TOTAL PROTEIN 7.1 g/dL (5.8-8.3)
[2017-04-02 08:19] LABS: INR 1.64 (0.93-1.08)
[2017-04-02] MEDS ORDERED: Barium Sulfate Susp 2.1% w/v, 2.0% w/w 450 mL Bottle PO ONE (08:55)
[2017-04-02] MEDS: Insulin Lispro 1 UNITS/0.01 ML SC SCH ×4 (09:40→21:42)
--- NOTE | 2017-04-02 09:47 | PN ---
DATE: 04/02/2017 This is a 56-year-old morbidly obese male, well known to me, seen for a left leg ulcer. The patient is seen at bedside. He is very depressed, quiet. I do know the patient well and his manner has hebert rina since his last visit. The patient does have a history of chronic pain syndrome which stopped him from walking. He has gone in and out of multiple medical centers and rehabs and LTACs in this year alone for the chronic ulcers on his legs. He stated that they did heal while he was in the subacute rehab. Once he goes home, however, he never follows up and he now is basically bedbound except to go to the bathroom and otherwise he lies in bed. The patient denies any fever or chills. He states he has no nausea or vomiting. He does have difficulty walking as noted above. PAST MEDICAL HISTORY: These ulcerations and the morbid obesity. SOCIAL HISTORY: He lives at home with his family. He does not smoke or use alcohol. The patient does have a history of hypertension. He has a history of hypothyroidism. He also has hi story of arthritis and fractures. He has a knee replacement on his left lower leg. The patient does have a history of depression in the past. PAST SURGICAL HISTORY: The knee replacement as well as a right hip. ALLERGIES: He has no known drug allergies. VITAL SIGNS: Reviewed. His temperature is 97.9, his pulse was 67, blood pressure is 136/77, respira tory rate is 20 and his ox sat is 96. LABORATORY DATA: The patient's labs were reviewed. His white blood cell count is 4.6, the H and H i s 10.4 and 32.2, and the platelets are 162. ESR is at 76. His glucose was noted to be 107, although it was at 185 yesterday. The rest of the SMA is grossly within normal limits. His CRP was greater than 15. The patient's microbiology, I did a blood culture today. The blood cultures so far were ne gative with no growth. PHYSICAL EXAMINATION: Shows a morbidly obese male lying in bed in no acute distress. He is, as note d above, quite depressed. The patient's left leg is dressed. He has it up on a pillow and there is no breakthrough drainage. Upon removal of the dressing, there is an ulceration on the posterior calf . The measurements are approximately 12 x 10 cm with a depth at the 0.1 cm. There is a moderate nash unt of red bloody drainage on the dressing. There is no sinus tract. There is no fluctuance. There is no evidence of any abscess in this wound. The patient has local irritation and erythema around t he wound itself, but the rest of the leg, especially around the knee where the implant is, is not war m, hot or swollen. ASSESSMENT: Chronic stasis ulcer to the left leg, stage II. PLAN OF TREATMENT: Wound was cleansed. A culture and sensitivity was taken from the wound. It was redressed using Xeroform, abdominal pad and dry sterile dressings. The patient also is complaining o f some heel pain on that left, although there is no ulcer at this time. An Optifoam was placed over the heel and heel pads were ordered. I did discuss with him about bringing psych in to speak to him and he has agreed to speak to the psychiatrist. Thus, a consult was placed on the chart. The patien t will be seen and followed. Preeti Daniels DPM cc: [id number] TT: 04/02/2017 09:46:28 Confirmation # [id number] Dictation # [id number] desmond
[2017-04-02] MEDS: Multivitamin Therapeutic Tab PO SCH (09:48)
[2017-04-02] MEDS: Pantoprazole 40 mg EC Tab PO SCH (09:48)
[2017-04-02] MEDS: Linezolid 600 mg in D5W 300 ml 600 MG/300 ML BAG IVPB SCH ×2 (09:49→21:14)
--- NOTE | 2017-04-02 09:49 | CP.PCM.PN ---
<[email or web address] - Last Filed: 04/02/17 14:18> Subjective - Date & Time of Evaluation Date of Evaluation: 04/02/17 Time of Evaluation: 09:45 - Subjective Subjective: Patient seen at bedside. Continues to complain of pain in b/l lower extremities. Wound dressings changed by Podiatry. Surgery is following, no surgical intervention. He is afebrile. Objective - Vital Signs/Intake and Output Vital Signs (last 24 hours): Temp Pulse Resp BP Pulse Ox 97.9 F 67 20 136/77 96 04/02/17 07:30 04/02/17 07:30 04/02/17 07:30 04/02/17 07:30 04/02/17 07:30 Intake and Output: 04/02/17 04/02/17 06:59 18:59 Intake Total 820 Output Total 1000 Balance -180 - Medications Medications: Current Medications Acetaminophen (Tylenol 325mg Tab) 650 mg PO Q6H PRN PRN Reason: Fever >100.4 F Clonidine HCl (Catapres) 0.1 mg PO BID [facility] Last Admin: 04/01/17 17:10 Dose: Not Given Docusate Sodium (Colace) 100 mg PO TID [facility] Last Admin: 04/01/17 17:10 Dose: Not Given Finasteride (Proscar) 5 mg PO DAILY [facility] Last Admin: 04/01/17 09:24 Dose: 5 mg Furosemide (Lasix) 40 mg PO BID [facility] Last Admin: 04/01/17 17:11 Dose: 40 mg Linezolid (Zyvox 600mg/300ml D5w) 600 mg in 300 mls @ 200 mls/hr IVPB Q12 [facility] PRN Reason: Protocol Stop: 04/08/17 10:01 Last Admin: 04/01/17 21:56 Dose: 200 mls/hr Insulin Human Lispro (Humalog) 0 units SC ACHS [facility] PRN Reason: Protocol Last Admin: 04/02/17 09:40 Dose: Not Given Levothyroxine Sodium (Synthroid) 75 mcg PO DAILY@0630 [facility] Last Admin: 04/02/17 05:41 Dose: 75 mcg Lidocaine (Lidoderm) 1 ea TD DAILY [facility] Last Admin: 04/01/17 09:23 Dose: 1 ea Lisinopril (Zestril) 5 mg PO DAILY [facility] Last Admin: 04/01/17 09:24 Dose: 5 mg Metoprolol Tartrate (Lopressor) 25 mg PO DAILY [facility] Last Admin: 04/01/17 09:24 Dose: 25 mg Multivitamins (Thera Tab) 1 tab PO DAILY [facility] Last Admin: 04/01/17 17:14 Dose: 1 tab Nystatin (Nystop Topical Powder) 0 gm TOP Q6H PRN PRN Reason: Rash Oxycodone HCl (Oxycontin Extended Release Tab) 80 mg PO Q6 [facility] Last Admin: 04/02/17 05:41 Dose: 80 mg Oxycodone/Acetaminophen (Percocet 5/325 Mg Tab) 2 tab PO Q4H PRN PRN Reason: Pain, severe (8-10) Stop: 04/03/17 23:36 Last Admin: 04/02/17 05:41 Dose: 2 tab Pantoprazole Sodium (Protonix Ec Tab) 40 mg PO ACB [facility] Last Admin: 04/01/17 06:45 Dose: 40 mg Warfarin Sodium (Coumadin) 10 mg PO 1800 [facility] PRN Reason: Protocol Last Admin: 04/01/17 17:10 Dose: 10 mg Zinc Sulfate (Zinc Sulfate 220 Mg Cap) 220 mg PO DAILY [facility] Last Admin: 04/01/17 17:14 Dose: 220 mg - Labs Labs: 04/02/17 05:00 04/02/17 05:00 PT 17.7 Seconds (9.9-11.8) H 04/02/17 08:00 INR 1.64 (0.93-1.08) H 04/02/17 08:00 - Constitutional Appears: Non-toxic, No Acute Distress - Head Exam Head Exam: ATRAUMATIC, NORMOCEPHALIC - Eye Exam Eye Exam: EOMI, PERRL - ENT Exam ENT Exam: Mucous Membranes Moist - Neck Exam Neck Exam: Full ROM, Normal Inspection - Respiratory Exam Respiratory Exam: Clear to Ausculation Bilateral. absent: Rales, Rhonchi, Wheezes - Cardiovascular Exam Cardiovascular Exam: REGULAR RHYTHM, +S1, +S2 - GI/Abdominal Exam GI & Abdominal Exam: Soft. absent: Tenderness - Extremities Exam Extremities Exam: absent: Normal Inspection (chronic venous stasis changes b/l. inferior gluteal fold stage II wounds bilaterally. ) - Neurological Exam Neurological Exam: Alert, Awake, Oriented x3 - Psychiatric Exam Psychiatric exam: Normal Affect, Normal Mood - Skin Skin Exam: Normal Color, Warm Assessment and Plan - Assessment and Plan (Free Text) Assessment: 56yo M admitted for b/l LE edema with venous stasis complicated by chronic bilateral wounds to the lower extremities bilaterally as well as b/l wounds involving gluteal folds. Leg Swelling/Pressure Ulcers - surgery following - no surgical intervention at this time. wound care to manage chronic non-healing wounds. - f/u CT to r/o underlying sinus tracts, abscess formation - ID following. continue abx as rec - cultures pending - no clinical evidence of sepsis HTN -c/w home clonidine hx CHF -c/w home meds -started zestril Hypothyroidism -c/w levothyroxine Chronic Pain -c/w current pain regiment from PMD Chronic DVT -warfarin 10mg daily -check INR adjust accordingly w antibiotics Proph Protonix Warfarin heart healthy diet <Jas Larios B - Last Filed: 04/06/17 07:51> Objective - Vital Signs/Intake and Output Vital Signs (last 24 hours): Temp Pulse Resp BP Pulse Ox 97.8 F 55 L 18 125/67 95 04/05/17 16:00 04/05/17 16:30 04/05/17 16:00 04/05/17 18:10 04/05/17 16:00 Intake and Output: 04/06/17 04/06/17 06:59 18:59 Intake Total 1680 Output Total 2000 Balance -320 - Medications Medications: Current Medications Acetaminophen (Tylenol 325mg Tab) 650 mg PO Q6H PRN PRN Reason: Fever >100.4 F Clonidine HCl (Catapres) 0.1 mg PO BID [facility] Last Admin: 04/05/17 18:11 Dose: 0.1 mg Diltiazem HCl (Cardizem Cd) 180 mg PO DAILY [facility] Last Admin: 04/05/17 16:30 Dose: Not Given Docusate Sodium (Colace) 100 mg PO TID [facility] Last Admin: 04/05/17 18:12 Dose: Not Given Doxycycline Hyclate (Doryx) 100 mg PO Q12 [facility] PRN Reason: Protocol Stop: 04/11/17 22:01 Last Admin: 04/05/17 21:51 Dose: 100 mg Duloxetine HCl (Cymbalta) 30 mg PO DAILY [facility] Last Admin: 04/05/17 10:42 Dose: 30 mg Finasteride (Proscar) 5 mg PO DAILY [facility] Last Admin: 04/05/17 10:41 Dose: 5 mg Furosemide (Lasix) 40 mg PO BID [facility] Last Admin: 04/05/17 18:10 Dose: 40 mg Meropenem 1g/NS 100mL IVPB (Meropenem 1g/Ns 100ml Ivpb) 1 gm in 100 mls @ 100 mls/hr IVPB Q12 [facility] PRN Reason: Protocol Stop: 04/10/17 10:01 Last Admin: 04/05/17 21:51 Dose: 100 mls/hr Insulin Human Lispro (Humalog) 0 units SC ACHS [facility] PRN Reason: Protocol Last Admin: 04/06/17 06:51 Dose: Not Given Levothyroxine Sodium (Synthroid) 75 mcg PO DAILY@0630 [facility] Last Admin: 04/06/17 06:01 Dose: 75 mcg Lidocaine (Lidoderm) 1 ea TD DAILY [facility] Last Admin: 04/05/17 10:43 Dose: 1 ea Lisinopril (Zestril) 5 mg PO DAILY [facility] Last Admin: 04/05/17 10:42 Dose: 5 mg Magnesium Oxide (Mag-Ox) 400 mg PO BID [facility] Last Admin: 04/05/17 18:12 Dose: 400 mg Metoprolol Tartrate (Lopressor) 25 mg PO DAILY [facility] Last Admin: 04/05/17 10:42 Dose: 25 mg Multivitamins (Thera Tab) 1 tab PO DAILY [facility] Last Admin: 04/05/17 10:41 Dose: 1 tab Nystatin (Nystop Topical Powder) 0 gm TOP Q6H PRN PRN Reason: Rash Last Admin: 04/05/17 10:48 Dose: 1 applic Oxycodone HCl (Oxycontin Extended Release Tab) 80 mg PO Q6 [facility] Last Admin: 04/06/17 06:00 Dose: 80 mg Oxycodone/Acetaminophen (Percocet 5/325 Mg Tab) 2 tab PO Q4H PRN PRN Reason: Pain, severe (8-10) Stop: 04/09/17 06:13 Last Admin: 04/06/17 06:24 Dose: 2 tab Pantoprazole Sodium (Protonix Ec Tab) 40 mg PO ACB [facility] Last Admin: 04/05/17 10:43 Dose: Not Given Warfarin Sodium (Coumadin) 10 mg PO 1800 [facility] Last Admin: 04/05/17 18:11 Dose: 10 mg Warfarin Sodium (Coumadin) 2.5 mg PO 1800 [facility] Last Admin: 04/05/17 18:11 Dose: 2.5 mg Zaleplon (Sonata) 10 mg PO HS [facility] Last Admin: 04/05/17 21:51 Dose: 10 mg Zinc Sulfate (Zinc Sulfate 220 Mg Cap) 220 mg PO DAILY [facility] Last Admin: 04/05/17 10:42 Dose: 220 mg - Labs Labs: 04/05/17 08:19 04/05/17 08:19 PT 13.7 Seconds (9.9-11.8) H 04/04/17 09:58 INR 1.27 (0.93-1.08) H 04/04/17 09:58 Attending/Attestation - Attestation I have personally seen and examined this patient.: Yes I have fully participated in the care of the patient.: Yes I have reviewed all pertinent clinical information, including history, physical exam and plan: Yes Notes (Text): I have seen and examined the patient at bedside. This is 56 year old male with history of HTN, CHF due to diastolic dysfunction, LE ulcers,COPD, JOSELUIS, chronic LE DVT, S/p IVC filter, Total Knee replacement, immobility, hypothyroidism, chronic pain, dyslipidemia, pressure ulcers on the back of thigh and buttocks who got admitted for evaluation of bilateral lower extremity edema, swelling and worsening pain. LE ultrasound negative. Surgery consult appreciated. No surgical intervention at this time. Wound care and podiatry consult appreciated. Continue zyvox. Continue clonidine, lisinopril, levothyroxine, coumadin and protonix. Patient states that he lives alone and needs help at home for ADL's and IADL's. Will consult home health care case manager. Upon discharge patient will follow up with Dr Gonzalez. Dr Jas Larios.
[2017-04-02] MEDS: Lidocaine 5% Patch TD SCH (09:54)
[2017-04-02] MEDS ORDERED: Magnesium Sulfate 2 GM in Sodium Chloride 0.9% 100 ML IVPB ONE (11:58)
--- NOTE | 2017-04-02 12:00 | CP.PCM.PN ---
Subjective - Date & Time of Evaluation Date of Evaluation: 04/02/17 Time of Evaluation: 10:45 - Subjective Subjective: General Surgery Progress Note for Dr. Palomino Patient seen and examined at bedside. No acute events overnight. Patient still complains of painful sacral wound. He states it is worse when he moves around in bed. Patient denies headache, fever, chills, shortness of breath, nausea, vomiting, diarrhea, or urinary symptoms. Objective - Vital Signs/Intake and Output Vital Signs (last 24 hours): Temp Pulse Resp BP Pulse Ox 97.9 F 85 20 133/78 96 04/02/17 07:30 04/02/17 09:49 04/02/17 07:30 04/02/17 09:49 04/02/17 07:30 Intake and Output: 04/02/17 04/02/17 06:59 18:59 Intake Total 820 Output Total 1000 Balance -180 - Medications Medications: Current Medications Acetaminophen (Tylenol 325mg Tab) 650 mg PO Q6H PRN PRN Reason: Fever >100.4 F Clonidine HCl (Catapres) 0.1 mg PO BID [facility] Last Admin: 04/02/17 09:49 Dose: 0.1 mg Docusate Sodium (Colace) 100 mg PO TID [facility] Last Admin: 04/02/17 09:49 Dose: Not Given Finasteride (Proscar) 5 mg PO DAILY [facility] Last Admin: 04/02/17 09:49 Dose: 5 mg Furosemide (Lasix) 40 mg PO BID [facility] Last Admin: 04/02/17 09:49 Dose: 40 mg Linezolid (Zyvox 600mg/300ml D5w) 600 mg in 300 mls @ 200 mls/hr IVPB Q12 [facility] PRN Reason: Protocol Stop: 04/08/17 10:01 Last Admin: 04/02/17 09:49 Dose: 200 mls/hr Insulin Human Lispro (Humalog) 0 units SC ACHS [facility] PRN Reason: Protocol Last Admin: 04/02/17 09:40 Dose: Not Given Levothyroxine Sodium (Synthroid) 75 mcg PO DAILY@0630 [facility] Last Admin: 04/02/17 05:41 Dose: 75 mcg Lidocaine (Lidoderm) 1 ea TD DAILY [facility] Last Admin: 04/02/17 09:54 Dose: 1 ea Lisinopril (Zestril) 5 mg PO DAILY [facility] Last Admin: 04/02/17 09:49 Dose: 5 mg Metoprolol Tartrate (Lopressor) 25 mg PO DAILY [facility] Last Admin: 04/02/17 09:49 Dose: 25 mg Multivitamins (Thera Tab) 1 tab PO DAILY [facility] Last Admin: 04/02/17 09:48 Dose: 1 tab Nystatin (Nystop Topical Powder) 0 gm TOP Q6H PRN PRN Reason: Rash Oxycodone HCl (Oxycontin Extended Release Tab) 80 mg PO Q6 [facility] Last Admin: 04/02/17 11:29 Dose: 80 mg Oxycodone/Acetaminophen (Percocet 5/325 Mg Tab) 2 tab PO Q4H PRN PRN Reason: Pain, severe (8-10) Stop: 04/03/17 23:36 Last Admin: 04/02/17 11:29 Dose: 2 tab Pantoprazole Sodium (Protonix Ec Tab) 40 mg PO ACB [facility] Last Admin: 04/02/17 09:48 Dose: 40 mg Warfarin Sodium (Coumadin) 10 mg PO 1800 [facility] PRN Reason: Protocol Last Admin: 04/01/17 17:10 Dose: 10 mg Zinc Sulfate (Zinc Sulfate 220 Mg Cap) 220 mg PO DAILY [facility] Last Admin: 04/02/17 09:48 Dose: 220 mg - Labs Labs: 04/02/17 05:00 04/02/17 05:00 PT 17.7 Seconds (9.9-11.8) H 04/02/17 08:00 INR 1.64 (0.93-1.08) H 04/02/17 08:00 - Constitutional Appears: Non-toxic, No Acute Distress, Other (morbidly obesed) - Head Exam Head Exam: ATRAUMATIC, NORMAL INSPECTION - Eye Exam Eye Exam: EOMI, Normal appearance - ENT Exam ENT Exam: Mucous Membranes Moist - Neck Exam Neck Exam: Normal Inspection (obesed) - Respiratory Exam Respiratory Exam: Clear to Ausculation Bilateral, NORMAL BREATHING PATTERN. absent: Respiratory Distress - Extremities Exam Additional comments: Bilateral lower extremity chronic venous stasis, erythema around gluteal folds with serous discharge, multiple weeping wounds, superficial bottom buttock excoriations - Neurological Exam Neurological Exam: Alert, Awake, Oriented x3 - Psychiatric Exam Psychiatric exam: Normal Affect, Normal Mood - Skin Additional comments: see extremity section Assessment and Plan - Assessment and Plan (Free Text) Assessment: 56 year male with pressure ulcers of the thighs, buttocks, and lower legs Plan: Infragluteal folds/posterior upper thigh excoriations -Wound care consulted -Replaced optoform x2 at bedside today -No surgical indications at this time -Will follow up CT results -Medical management per primary team -D/w attending
--- NOTE | 2017-04-02 15:14 | CT ---
PROCEDURE: CT Abdomen and Pelvis with contrast HISTORY: R/O deep buttock abscess-Hx Osteomyelitis Pelvis COMPARISON: None. TECHNIQUE: Contrast dose: 150 cc of Omni 350 Radiation dose: Total exam DLP = 2043 mGy-cm. This CT exam was performed using one or more of the following dose reduction techniques: Automated exposure control, adjustment of the mA and/or kV according to patient size, and/or use of iterative reconstruction technique. FINDINGS: LOWER THORAX: Unremarkable. LIVER: Unremarkable. No gross lesion or ductal dilatation. GALLBLADDER AND BILE DUCTS: Unremarkable. PANCREAS: Unremarkable. No gross lesion or ductal dilatation. SPLEEN: Unremarkable. ADRENALS: Unremarkable. No mass. KIDNEYS AND URETERS: Unremarkable. No hydronephrosis. No solid mass. VASCULATURE: Unremarkable. No aortic aneurysm. Caval filter BOWEL: Unremarkable. No obstruction. No gross mural thickening. APPENDIX: Normal appendix. PERITONEUM: Unremarkable. No free fluid. No free air. LYMPH NODES: Unremarkable. No enlarged lymph nodes. BLADDER: Unremarkable. REPRODUCTIVE: Unremarkable. BONES: No acute fracture. No evidence of osteomyelitis OTHER FINDINGS: There is soft tissue thickening in the gluteal folds bilaterally. No evidence of abscess IMPRESSION: Soft tissue thickening in the gluteal folds bilaterally. No evidence of abscess No evidence of osteomyelitis
--- NOTE | 2017-04-02 15:35 | US ---
HISTORY: Leg pain and swelling. Evaluate for DVT PHYSICIAN(S): Que Burgess MD. TECHNIQUE: Duplex sonography and color-flow Doppler with graded compression were used to evaluate the deep venous systems of both lower extremities. The exam is extremely limited due to the patient's body habitus, edema, and inability to cooperate. The lower femoral veins, popliteal veins, and tibial veins are not adequately examined. FINDINGS: The visualized deep venous systems of both lower extremities are sonographically normal and compressible. Normal wave forms and augmentation are seen. There is no sonographic evidence for deep venous thrombosis in the visualized segments of both lower extremities. IMPRESSION: No sonographic evidence for acute deep venous thrombosis in the visualized segments of both lower extremities. Extremely limited study
[2017-04-02] MEDS: Magnesium Oxide 400 mg Tab UD PO SCH (17:23)
--- NOTE | 2017-04-02 17:51 | CP.PCM.PCO ---
Physician Communication Note - Physician Communication Note Physician Communication Note: CT No surgical abscess-osteomyelitis/Cons Medl measures recommended
--- NOTE | 2017-04-02 20:36 | PN ---
DATE: 04/02/2017 The patient seen earlier this morning in room 575, bed 1. No fevers and no chills. He is tolerating the antibiotics well. PHYSICAL EXAMINATION: VITAL SIGNS: Temperature is 97, blood pressure is 150/80, respiratory rate of 20 and heart rate of 5 6. HEENT: Unremarkable. NECK: Supple. LUNGS: Have decreased breath sounds. HEART: Normal S1, S2. ABDOMEN: Soft. LABORATORY DATA: Reveals the blood cultures are negative at 24 hours. The leg cultures are pending. ASSESSMENT AND PLAN: This is a 57-year-old morbidly obese male with a body mass index of 43, diabete s, hypertension, chronic obstructive lung disease, hypothyroidism, bilateral lower extremity swelling due to venous stasis, osteoarthritis, chronic pain syndrome recently, was in the hospital, now admit enio with left leg cellulitis, currently on Zyvox. Will check on the cultures. The patient also had a CAT scan of the abdomen and pelvis today. No evidence of abscess. Dr. Jhon Palomino' note is re viewed. We will follow with you. Ralph Blanco MD cc: 350 TT: 04/02/2017 20:35:47 Confirmation # [id number] Dictation # [id number] devang
[2017-04-03] MEDS: oxyCODONE 80 mg ER Tab (oxyCONTIN) PO SCH ×4 (05:10→23:24)
[2017-04-03] MEDS: Oxycodone/Acetaminophen 5/325 mg Tab PO PRN ×4 (05:10→23:24)
[2017-04-03] MEDS: Levothyroxine 75 MCG TAB PO SCH (06:23)
[2017-04-03 07:40] LABS: ADD MANUAL DIFF? NO
[2017-04-03 07:47] LABS: BASO # 0.03 K/mm3 (0.0-2.0); BASO % 0.5 % (0.0-3.0); EOS # 0.4 (0.0-0.7); EOS % 6.2 % (1.5-5.0); GRAN # 4.23 (1.4-6.5); GRAN % 65.5 % (50.0-68.0); HEMATOCRIT 33.4 % (42.0-52.0); LYMPH # 1.5 (1.2-3.4); LYMPH % 22.4 % (22.0-35.0); MEAN CELL VOLUME 87.7 fL (80.0-105.0); MEAN CORPUSCULAR HEMOGLOBIN 28.6 pg (25.0-35.0); MEAN CORPUSCULAR HGB CONC 32.6 g/dl (31.0-37.0); MEAN PLATELET VOLUME 11.4 fl (7.0-11.0); MONO # 0.4 (0.1-0.6); MONO % 5.4 % (1.0-6.0); PLATELET COUNT 180 10^3/uL (120.0-450.0); RED CELL DISTRIBUTION WIDTH 13.9 % (11.5-14.5); WHITE BLOOD COUNT 6.5 10^3/ul (4.5-11.0)
[2017-04-03 08:08] LABS: ALKALINE PHOSPHATASE 113 U/L (38-133); ALT/SGPT 25 U/L (7-56); AST/SGOT 19 U/L (15-59); BILIRUBIN,TOTAL 0.3 mg/dL (0.2-1.3); BLOOD UREA NITROGEN 19 mg/dL (7-21); CALCIUM 9.2 mg/dL (8.4-10.5); CARBON DIOXIDE 31 mmol/L (21-33); CHLORIDE 99 mmol/L (95-110); GFR AFRICAN-AMERICAN > 60; GLUCOSE,RANDOM 109 mg/dL (70-110); POTASSIUM 4.4 mmol/L (3.6-5.0); SODIUM 137 mmol/L (132-148); TOTAL PROTEIN 7.2 g/dL (5.8-8.3)
[2017-04-03] MEDS: Insulin Lispro 1 UNITS/0.01 ML SC SCH ×4 (08:20→23:15)
[2017-04-03] MEDS: Pantoprazole 40 mg EC Tab PO SCH (08:27)
--- NOTE | 2017-04-03 08:29 | CP.PCM.PN ---
Subjective - Date & Time of Evaluation Date of Evaluation: 04/03/17 Time of Evaluation: 06:50 - Subjective Subjective: General Surgery Pt S&E, NAEO. Pt still c/o painful sacral wounds and painful LEs. No other C/O at this time. Objective - Vital Signs/Intake and Output Vital Signs (last 24 hours): Temp Pulse Resp BP Pulse Ox 97.9 F 66 22 137/73 96 04/03/17 08:00 04/03/17 08:00 04/03/17 08:00 04/03/17 08:00 04/03/17 08:00 Intake and Output: 04/03/17 04/03/17 06:59 18:59 Intake Total 1300 Output Total 2000 Balance -700 - Medications Medications: Current Medications Acetaminophen (Tylenol 325mg Tab) 650 mg PO Q6H PRN PRN Reason: Fever >100.4 F Clonidine HCl (Catapres) 0.1 mg PO BID [facility] Last Admin: 04/02/17 17:23 Dose: 0.1 mg Docusate Sodium (Colace) 100 mg PO TID [facility] Last Admin: 04/02/17 17:24 Dose: Not Given Finasteride (Proscar) 5 mg PO DAILY [facility] Last Admin: 04/02/17 09:49 Dose: 5 mg Furosemide (Lasix) 40 mg PO BID [facility] Last Admin: 04/02/17 17:22 Dose: 40 mg Linezolid (Zyvox 600mg/300ml D5w) 600 mg in 300 mls @ 200 mls/hr IVPB Q12 [facility] PRN Reason: Protocol Stop: 04/08/17 10:01 Last Admin: 04/02/17 21:14 Dose: 200 mls/hr Insulin Human Lispro (Humalog) 0 units SC ACHS [facility] PRN Reason: Protocol Last Admin: 04/03/17 08:20 Dose: Not Given Levothyroxine Sodium (Synthroid) 75 mcg PO DAILY@0630 [facility] Last Admin: 04/03/17 06:23 Dose: 75 mcg Lidocaine (Lidoderm) 1 ea TD DAILY [facility] Last Admin: 04/02/17 09:54 Dose: 1 ea Lisinopril (Zestril) 5 mg PO DAILY [facility] Last Admin: 04/02/17 09:49 Dose: 5 mg Magnesium Oxide (Mag-Ox) 400 mg PO BID [facility] Last Admin: 04/02/17 17:23 Dose: 400 mg Metoprolol Tartrate (Lopressor) 25 mg PO DAILY [facility] Last Admin: 04/02/17 09:49 Dose: 25 mg Multivitamins (Thera Tab) 1 tab PO DAILY [facility] Last Admin: 04/02/17 09:48 Dose: 1 tab Nystatin (Nystop Topical Powder) 0 gm TOP Q6H PRN PRN Reason: Rash Oxycodone HCl (Oxycontin Extended Release Tab) 80 mg PO Q6 [facility] Last Admin: 04/03/17 05:10 Dose: 80 mg Oxycodone/Acetaminophen (Percocet 5/325 Mg Tab) 2 tab PO Q4H PRN PRN Reason: Pain, moderate (4-7) Stop: 04/06/17 00:45 Last Admin: 04/03/17 05:10 Dose: 2 tab Pantoprazole Sodium (Protonix Ec Tab) 40 mg PO ACB [facility] Last Admin: 04/02/17 09:48 Dose: 40 mg Warfarin Sodium (Coumadin) 10 mg PO 1800 [facility] PRN Reason: Protocol Last Admin: 04/02/17 17:23 Dose: 10 mg Zinc Sulfate (Zinc Sulfate 220 Mg Cap) 220 mg PO DAILY [facility] Last Admin: 04/02/17 09:48 Dose: 220 mg - Labs Labs: 04/03/17 06:30 04/02/17 05:00 PT 17.7 Seconds (9.9-11.8) H 04/02/17 08:00 INR 1.64 (0.93-1.08) H 04/02/17 08:00 - Constitutional Appears: Non-toxic, No Acute Distress - Head Exam Head Exam: ATRAUMATIC, NORMOCEPHALIC - Respiratory Exam Respiratory Exam: NORMAL BREATHING PATTERN. absent: Respiratory Distress - GI/Abdominal Exam GI & Abdominal Exam: Soft. absent: Tenderness - Neurological Exam Neurological Exam: Alert, Awake - Skin Additional comments: Bilateral lower extremity chronic venous stasis, erythema around gluteal folds with serous discharge, multiple weeping wounds, superficial bottom buttock excoriations Assessment and Plan - Assessment and Plan (Free Text) Assessment: 56 year male with Infragluteal folds/posterior upper thigh excoriations Plan: Dressing changes BID Wound care on board CT negative for deeper abscesses No further surgical intervention at this time. Will D/W Dr. Candelario Conte PGY3
[2017-04-03 09:04] LABS: INR 1.33 (0.93-1.08)
[2017-04-03] MEDS: Lidocaine 5% Patch TD SCH (09:47)
[2017-04-03] MEDS: Magnesium Oxide 400 mg Tab UD PO SCH ×2 (09:48→17:26)
[2017-04-03] MEDS: Linezolid 600 mg in D5W 300 ml 600 MG/300 ML BAG IVPB SCH ×2 (09:49→21:10)
[2017-04-03] MEDS: Multivitamin Therapeutic Tab PO SCH (09:49)
[2017-04-03] MEDS: Meropenem 1g/NS 100mL IVPB 1 GM/100 ML PIGGYBACK IVPB SCH ×2 (11:45→21:06)
--- NOTE | 2017-04-03 12:04 | CON ---
DATE: 04/03/2017 Shortly, patient is a 57-year-old male, not known previous psychiatric history. The patien t has multiple medical problems including chronic leg ulcer with multiple infections, CHF, COPD, DVT, status post IVC filter, diabetes, hypertension, sleep apnea. The patient was admitted on the medica l floor for evaluation of bilateral lower extremity swelling and redness. The patient also has decub itus ulcer on the buttock right region. Psych consult was called for evaluation of depressive sympto ms as well as insomnia and patient appeared to be hopeless. This expert medical writer had prolonged conversation w trevin Daniels yesterday. The patient was seen today and examined. The patient presented to have f lat affect. The patient reported that he feels depressed over his medical issues, sometimes he wants to give up. The patient reported that he feels hopeless, helpless and worthless. At the same time, wish to be . The patient reported that he feels anxious about his future. He lives by himself and he has not enough services at the house. The patient denied hearing voices, denied seeing things , denied paranoid ideations. The patient denied active plan or intent to kill himself. PAST PSYCHIATRIC HISTORY: The patient reported that in the past, he is not sure if he was admitted t o the psychiatric inpatient unit, but patient reported that his father as well as close cousin and he was very depressed. Denied suicidal attempts in the past. VITAL SIGNS: Reviewed. Temperature 97.9, pulse is 66, blood pressure 137/73, oxygen saturation is 9 6%. MEDICATIONS: Reviewed. Tylenol, clonidine, Colace, Cymbalta will be started 20 mg as well as Sonata 5 mg at the nighttime. Risks, benefits and alternatives were discussed with the patient. The patie nt is on Proscar 5 mg daily, Lasix, Humalog and Synthroid. LABORATORIES: Reviewed. Hemoglobin and hematocrit 10.9 and 33.4. Coagulation reviewed. Chemistry also reviewed. MENTAL STATUS EXAMINATION: The patient presented to be obese, depressed, not shaved. Intermittent e ye contact. Speech was underproductive, low volume. Mood described "I don't want to even talk about my depression." Affect was flat and tearful, mood congruent. Thought process was coherent and goal directed. Thought content: The patient denied visual, auditory, or tactile hallucinations. Denied paranoid ideations. The patient has passive wish to be . Denied intent or plan to kill himself . Insight and judgment are fair. Impulses are well controlled. IMPRESSION: Rule out major depressive disorder, rule out mood disorder due to general medical condit ion, rule out generalized anxiety disorder, rule out anxiety due to general medical condition. Pleas e see above medical issues. PLAN: Continue current management. The patient is on contact isolation. The patient needs to be of f contact isolation in order to go to the psychiatric inpatient unit. Also, patient needs to be octavio red from the medical standpoint. The patient was started on Cymbalta 20 mg daily for depression and for anxiety as well as for neuropathy. The patient also might benefit from Sonata 5 mg with a plan t o increase that to 10 mg. The patient needs to continue all of his medications and social work invol vement. The patient does not need to be on 1:1. Case was discussed with Dr. Jaiden Larios. Should you waggoner ve any questions, give me a call back. The patient is willing to go to the psychiatric inpatient uni t, but at the same time, needs to be medically cleared and off contact isolation. Tania Gramajo MD cc: [id number] TT: 04/03/2017 12:03:21 Confirmation # [id number] Dictation # [id number]
--- NOTE | 2017-04-03 14:01 | CP.PCM.PN ---
<Alec Bateman - Last Filed: 04/03/17 13:57> Subjective - Date & Time of Evaluation Date of Evaluation: 04/03/17 Time of Evaluation: 12:10 - Subjective Subjective: 56 y/o male seen at bedside concerning prognosis of bilateral venous stasis ulcerations of the lower extremities. Patient grades current leg pain a 5/10, and is improved since yesterday in his opinion. He denies n/f/v/c/d/sob. Objective - Vital Signs/Intake and Output Vital Signs (last 24 hours): Temp Pulse Resp BP Pulse Ox 97.9 F 66 22 137/73 96 04/03/17 08:00 04/03/17 09:49 04/03/17 08:00 04/03/17 09:49 04/03/17 08:00 Intake and Output: 04/03/17 04/03/17 06:59 18:59 Intake Total 1300 Output Total 2000 Balance -700 - Medications Medications: Current Medications Acetaminophen (Tylenol 325mg Tab) 650 mg PO Q6H PRN PRN Reason: Fever >100.4 F Clonidine HCl (Catapres) 0.1 mg PO BID [facility] Last Admin: 04/03/17 09:45 Dose: 0.1 mg Docusate Sodium (Colace) 100 mg PO TID [facility] Last Admin: 04/03/17 09:46 Dose: Not Given Duloxetine HCl (Cymbalta) 20 mg PO DAILY [facility] Last Admin: 04/03/17 11:45 Dose: 20 mg Finasteride (Proscar) 5 mg PO DAILY [facility] Last Admin: 04/03/17 09:49 Dose: 5 mg Furosemide (Lasix) 40 mg PO BID [facility] Last Admin: 04/03/17 09:46 Dose: 40 mg Linezolid (Zyvox 600mg/300ml D5w) 600 mg in 300 mls @ 200 mls/hr IVPB Q12 [facility] PRN Reason: Protocol Stop: 04/08/17 10:01 Last Admin: 04/03/17 09:49 Dose: 200 mls/hr Meropenem 1g/NS 100mL IVPB (Meropenem 1g/Ns 100ml Ivpb) 1 gm in 100 mls @ 100 mls/hr IVPB Q12 [facility] PRN Reason: Protocol Stop: 04/10/17 10:01 Last Admin: 04/03/17 11:45 Dose: 100 mls/hr Insulin Human Lispro (Humalog) 0 units SC ACHS [facility] PRN Reason: Protocol Last Admin: 04/03/17 11:46 Dose: Not Given Levothyroxine Sodium (Synthroid) 75 mcg PO DAILY@0630 [facility] Last Admin: 04/03/17 06:23 Dose: 75 mcg Lidocaine (Lidoderm) 1 ea TD DAILY [facility] Last Admin: 04/03/17 09:47 Dose: 1 ea Lisinopril (Zestril) 5 mg PO DAILY [facility] Last Admin: 04/03/17 09:49 Dose: 5 mg Magnesium Oxide (Mag-Ox) 400 mg PO BID [facility] Last Admin: 04/03/17 09:48 Dose: 400 mg Metoprolol Tartrate (Lopressor) 25 mg PO DAILY [facility] Last Admin: 04/03/17 09:48 Dose: 25 mg Multivitamins (Thera Tab) 1 tab PO DAILY [facility] Last Admin: 04/03/17 09:49 Dose: 1 tab Nystatin (Nystop Topical Powder) 0 gm TOP Q6H PRN PRN Reason: Rash Oxycodone HCl (Oxycontin Extended Release Tab) 80 mg PO Q6 [facility] Last Admin: 04/03/17 11:45 Dose: 80 mg Oxycodone/Acetaminophen (Percocet 5/325 Mg Tab) 2 tab PO Q4H PRN PRN Reason: Pain, moderate (4-7) Stop: 04/06/17 00:45 Last Admin: 04/03/17 11:44 Dose: 2 tab Pantoprazole Sodium (Protonix Ec Tab) 40 mg PO ACB [facility] Last Admin: 04/03/17 08:27 Dose: 40 mg Warfarin Sodium (Coumadin) 10 mg PO 1800 [facility] Warfarin Sodium (Coumadin) 2.5 mg PO 1800 [facility] Zaleplon (Sonata) 5 mg PO HS [facility] Zinc Sulfate (Zinc Sulfate 220 Mg Cap) 220 mg PO DAILY [facility] Last Admin: 04/03/17 09:49 Dose: 220 mg - Labs Labs: 04/03/17 06:30 04/03/17 06:30 PT 14.4 Seconds (9.9-11.8) H 04/03/17 08:30 INR 1.33 (0.93-1.08) H 04/03/17 08:30 - Constitutional Appears: Well, Non-toxic, No Acute Distress - Extremities Exam Additional comments: Vasc: Non-palpable pedal pulses due to edema b/l, TG warm to warm, CFT < 3 sec to all digits, +1 pitting edema Neuro: grossly diminished Derm: +1 pitting edema to legs bilateral, localized erythema to mid-calf bilateral. Cellulitis localized to superficial ulcerations along: Left posterior distal 1/2 of leg superficial ulceratiosn with heavy serous drainage noted. Absent undermining on a granular-fibrotic base with jamila-wound macerations Right distal medial leg, superficial open lesion measuring 3x1.6 cm on the on a fibro-ranular base, no purulence, minor serous drainage, no active bleeding , no undermining, no tracking, no probe to bone MUSC: pain on palpation of posterior and medial legs b/l - Neurological Exam Neurological Exam: Alert, Awake, Oriented x3 Assessment and Plan - Assessment and Plan (Free Text) Assessment: 56 y/o male cellulitis and bilateral superficial venous stasis ulcerations Plan: patient evaluated and seen at bedside. Discussed with attending Dr. Daniels labs and vitals reviewed; afebrile. continue IV abx per ID cleansed legs with saline. Right leg dressed with skin protectant and DSD. Left leg dressed with xeroform, ABD, kerlix to bilateral legs patient encouraged to begin ambulating as tolerated. Noted pt to be transferred to [facility] nit one of isolation contact for full evaluation of depression. podiatry will continue to monitor while patient remains in house <Parish Zavaleta - Last Filed: 04/04/17 09:15> Objective - Vital Signs/Intake and Output Vital Signs (last 24 hours): Temp Pulse Resp BP Pulse Ox 98.9 F 83 20 124/74 96 04/04/17 07:30 04/04/17 07:30 04/04/17 07:30 04/04/17 07:30 04/04/17 07:30 Intake and Output: 04/04/17 04/04/17 06:59 18:59 Intake Total 1260 Output Total 2500 Balance -1240 - Medications Medications: Current Medications Acetaminophen (Tylenol 325mg Tab) 650 mg PO Q6H PRN PRN Reason: Fever >100.4 F Clonidine HCl (Catapres) 0.1 mg PO BID [facility] Last Admin: 04/03/17 17:25 Dose: 0.1 mg Docusate Sodium (Colace) 100 mg PO TID [facility] Last Admin: 04/03/17 17:11 Dose: Not Given Duloxetine HCl (Cymbalta) 20 mg PO DAILY [facility] Last Admin: 04/03/17 11:45 Dose: 20 mg Finasteride (Proscar) 5 mg PO DAILY [facility] Last Admin: 04/03/17 09:49 Dose: 5 mg Furosemide (Lasix) 40 mg PO BID [facility] Last Admin: 04/03/17 17:15 Dose: 40 mg Linezolid (Zyvox 600mg/300ml D5w) 600 mg in 300 mls @ 200 mls/hr IVPB Q12 [facility] PRN Reason: Protocol Stop: 04/08/17 10:01 Last Admin: 04/03/17 21:10 Dose: 200 mls/hr Meropenem 1g/NS 100mL IVPB (Meropenem 1g/Ns 100ml Ivpb) 1 gm in 100 mls @ 100 mls/hr IVPB Q12 [facility] PRN Reason: Protocol Stop: 04/10/17 10:01 Last Admin: 04/03/17 21:06 Dose: 100 mls/hr Insulin Human Lispro (Humalog) 0 units SC ACHS [facility] PRN Reason: Protocol Last Admin: 04/04/17 08:04 Dose: Not Given Levothyroxine Sodium (Synthroid) 75 mcg PO DAILY@0630 [facility] Last Admin: 04/04/17 05:47 Dose: 75 mcg Lidocaine (Lidoderm) 1 ea TD DAILY [facility] Last Admin: 04/03/17 09:47 Dose: 1 ea Lisinopril (Zestril) 5 mg PO DAILY [facility] Last Admin: 04/03/17 09:49 Dose: 5 mg Magnesium Oxide (Mag-Ox) 400 mg PO BID [facility] Last Admin: 04/03/17 17:26 Dose: 400 mg Metoprolol Tartrate (Lopressor) 25 mg PO DAILY [facility] Last Admin: 04/03/17 09:48 Dose: 25 mg Multivitamins (Thera Tab) 1 tab PO DAILY [facility] Last Admin: 04/03/17 09:49 Dose: 1 tab Nystatin (Nystop Topical Powder) 0 gm TOP Q6H PRN PRN Reason: Rash Oxycodone HCl (Oxycontin Extended Release Tab) 80 mg PO Q6 [facility] Last Admin: 04/04/17 05:47 Dose: 80 mg Oxycodone/Acetaminophen (Percocet 5/325 Mg Tab) 2 tab PO Q4H PRN PRN Reason: Pain, moderate (4-7) Stop: 04/06/17 00:45 Last Admin: 04/04/17 05:46 Dose: 2 tab Pantoprazole Sodium (Protonix Ec Tab) 40 mg PO ACB [facility] Last Admin: 04/04/17 08:02 Dose: 40 mg Warfarin Sodium (Coumadin) 10 mg PO 1800 [facility] Last Admin: 04/03/17 17:15 Dose: 10 mg Warfarin Sodium (Coumadin) 2.5 mg PO 1800 [facility] Last Admin: 04/03/17 17:26 Dose: 2.5 mg Zaleplon (Sonata) 5 mg PO HS [facility] Last Admin: 04/03/17 21:10 Dose: 5 mg Zinc Sulfate (Zinc Sulfate 220 Mg Cap) 220 mg PO DAILY [facility] Last Admin: 04/03/17 09:49 Dose: 220 mg - Labs Labs: 04/04/17 08:39 04/04/17 08:39 PT 14.4 Seconds (9.9-11.8) H 04/03/17 08:30 INR 1.33 (0.93-1.08) H 04/03/17 08:30 Attending/Attestation - Attestation I have personally seen and examined this patient.: Yes I have fully participated in the care of the patient.: Yes I have reviewed all pertinent clinical information, including history, physical exam and plan: Yes
--- NOTE | 2017-04-03 14:31 | CP.PCM.PN ---
<Jw Jacobs - Last Filed: 04/03/17 14:28> Subjective - Date & Time of Evaluation Date of Evaluation: 04/03/17 Time of Evaluation: 14:28 - Subjective Subjective: Patient seen at bedside. Continues to note LE discomfort, however this is improved. He is afebrile and without other complaints. He expresses that he has difficulty with ADL's at home due to his chronic medical problems. Once medically stable he is willing to go to inpatient psychiatry for management of his depression. Objective - Vital Signs/Intake and Output Vital Signs (last 24 hours): Temp Pulse Resp BP Pulse Ox 97.9 F 66 22 137/73 96 04/03/17 08:00 04/03/17 09:49 04/03/17 08:00 04/03/17 09:49 04/03/17 08:00 Intake and Output: 04/03/17 04/03/17 06:59 18:59 Intake Total 1300 Output Total 2000 Balance -700 - Medications Medications: Current Medications Acetaminophen (Tylenol 325mg Tab) 650 mg PO Q6H PRN PRN Reason: Fever >100.4 F Clonidine HCl (Catapres) 0.1 mg PO BID [facility] Last Admin: 04/03/17 09:45 Dose: 0.1 mg Docusate Sodium (Colace) 100 mg PO TID [facility] Last Admin: 04/03/17 09:46 Dose: Not Given Duloxetine HCl (Cymbalta) 20 mg PO DAILY [facility] Last Admin: 04/03/17 11:45 Dose: 20 mg Finasteride (Proscar) 5 mg PO DAILY [facility] Last Admin: 04/03/17 09:49 Dose: 5 mg Furosemide (Lasix) 40 mg PO BID [facility] Last Admin: 04/03/17 09:46 Dose: 40 mg Linezolid (Zyvox 600mg/300ml D5w) 600 mg in 300 mls @ 200 mls/hr IVPB Q12 [facility] PRN Reason: Protocol Stop: 04/08/17 10:01 Last Admin: 04/03/17 09:49 Dose: 200 mls/hr Meropenem 1g/NS 100mL IVPB (Meropenem 1g/Ns 100ml Ivpb) 1 gm in 100 mls @ 100 mls/hr IVPB Q12 [facility] PRN Reason: Protocol Stop: 04/10/17 10:01 Last Admin: 04/03/17 11:45 Dose: 100 mls/hr Insulin Human Lispro (Humalog) 0 units SC ACHS [facility] PRN Reason: Protocol Last Admin: 04/03/17 11:46 Dose: Not Given Levothyroxine Sodium (Synthroid) 75 mcg PO DAILY@0630 [facility] Last Admin: 04/03/17 06:23 Dose: 75 mcg Lidocaine (Lidoderm) 1 ea TD DAILY [facility] Last Admin: 04/03/17 09:47 Dose: 1 ea Lisinopril (Zestril) 5 mg PO DAILY [facility] Last Admin: 04/03/17 09:49 Dose: 5 mg Magnesium Oxide (Mag-Ox) 400 mg PO BID [facility] Last Admin: 04/03/17 09:48 Dose: 400 mg Metoprolol Tartrate (Lopressor) 25 mg PO DAILY [facility] Last Admin: 04/03/17 09:48 Dose: 25 mg Multivitamins (Thera Tab) 1 tab PO DAILY [facility] Last Admin: 04/03/17 09:49 Dose: 1 tab Nystatin (Nystop Topical Powder) 0 gm TOP Q6H PRN PRN Reason: Rash Oxycodone HCl (Oxycontin Extended Release Tab) 80 mg PO Q6 [facility] Last Admin: 04/03/17 11:45 Dose: 80 mg Oxycodone/Acetaminophen (Percocet 5/325 Mg Tab) 2 tab PO Q4H PRN PRN Reason: Pain, moderate (4-7) Stop: 04/06/17 00:45 Last Admin: 04/03/17 11:44 Dose: 2 tab Pantoprazole Sodium (Protonix Ec Tab) 40 mg PO ACB [facility] Last Admin: 04/03/17 08:27 Dose: 40 mg Warfarin Sodium (Coumadin) 10 mg PO 1800 [facility] Warfarin Sodium (Coumadin) 2.5 mg PO 1800 [facility] Zaleplon (Sonata) 5 mg PO HS [facility] Zinc Sulfate (Zinc Sulfate 220 Mg Cap) 220 mg PO DAILY [facility] Last Admin: 04/03/17 09:49 Dose: 220 mg - Labs Labs: 04/03/17 06:30 04/03/17 06:30 PT 14.4 Seconds (9.9-11.8) H 04/03/17 08:30 INR 1.33 (0.93-1.08) H 04/03/17 08:30 - Constitutional Appears: Non-toxic, No Acute Distress - Head Exam Head Exam: ATRAUMATIC, NORMOCEPHALIC - Eye Exam Eye Exam: EOMI, PERRL - ENT Exam ENT Exam: Mucous Membranes Moist - Neck Exam Neck Exam: Full ROM. absent: Lymphadenopathy - Respiratory Exam Respiratory Exam: Clear to Ausculation Bilateral. absent: Rales, Rhonchi, Wheezes - Cardiovascular Exam Cardiovascular Exam: REGULAR RHYTHM, +S1, +S2 - GI/Abdominal Exam GI & Abdominal Exam: Soft, Normal Bowel Sounds Additional comments: obese - Extremities Exam Additional comments: b/l pitting edema extending above the knee. inferior gluteal fold wounds stage I to II cleaned and dressed. - Neurological Exam Neurological Exam: Alert, Awake, Oriented x3 - Psychiatric Exam Psychiatric exam: Normal Affect, Normal Mood - Skin Skin Exam: Dry, Warm Assessment and Plan - Assessment and Plan (Free Text) Assessment: 56yo M admitted for b/l LE edema with venous stasis complicated by chronic bilateral wounds to the lower extremities bilaterally as well as b/l wounds involving gluteal folds. Clinically improving. Wound care done by podiatry. No surgical management at this time. Patient expresses feelings of depression and is agreeable to inpatient psychiatric treatment once medically stable. Leg Swelling/Pressure Ulcers - awaiting final wound culture results to tailor antibiotic therapy - surgery following - no surgical intervention at this time. wound care to manage chronic non-healing wounds. - CT reveals no underlying soft tissue abscess, sinus tracking or osteo - ID following. continue abx as rec - cultures pending - no clinical evidence of sepsis HTN -c/w home clonidine hx CHF -c/w home meds -started zestril Hypothyroidism -c/w levothyroxine Chronic Pain -c/w current pain regiment from PMD Chronic DVT -INR subtherapeutic - increase Coumadin to 12.5mg daily -check INR adjust accordingly w antibiotics Dispo: patient will go directly to inpatient psychiatric unit once discharged. <Jas Larios - Last Filed: 04/06/17 07:53> Objective - Vital Signs/Intake and Output Vital Signs (last 24 hours): Temp Pulse Resp BP Pulse Ox 97.8 F 55 L 18 125/67 95 04/05/17 16:00 04/05/17 16:30 04/05/17 16:00 04/05/17 18:10 04/05/17 16:00 Intake and Output: 04/06/17 04/06/17 06:59 18:59 Intake Total 1680 Output Total 1999 Balance -320 - Medications Medications: Current Medications Acetaminophen (Tylenol 325mg Tab) 650 mg PO Q6H PRN PRN Reason: Fever >100.4 F Clonidine HCl (Catapres) 0.1 mg PO BID [facility] Last Admin: 04/05/17 18:11 Dose: 0.1 mg Diltiazem HCl (Cardizem Cd) 180 mg PO DAILY [facility] Last Admin: 04/05/17 16:30 Dose: Not Given Docusate Sodium (Colace) 100 mg PO TID [facility] Last Admin: 04/05/17 18:12 Dose: Not Given Doxycycline Hyclate (Doryx) 100 mg PO Q12 [facility] PRN Reason: Protocol Stop: 04/11/17 22:01 Last Admin: 04/05/17 21:51 Dose: 100 mg Duloxetine HCl (Cymbalta) 30 mg PO DAILY [facility] Last Admin: 04/05/17 10:42 Dose: 30 mg Finasteride (Proscar) 5 mg PO DAILY [facility] Last Admin: 04/05/17 10:41 Dose: 5 mg Furosemide (Lasix) 40 mg PO BID [facility] Last Admin: 04/05/17 18:10 Dose: 40 mg Meropenem 1g/NS 100mL IVPB (Meropenem 1g/Ns 100ml Ivpb) 1 gm in 100 mls @ 100 mls/hr IVPB Q12 [facility] PRN Reason: Protocol Stop: 04/10/17 10:01 Last Admin: 04/05/17 21:51 Dose: 100 mls/hr Insulin Human Lispro (Humalog) 0 units SC ACHS [facility] PRN Reason: Protocol Last Admin: 04/06/17 06:51 Dose: Not Given Levothyroxine Sodium (Synthroid) 75 mcg PO DAILY@0630 [facility] Last Admin: 04/06/17 06:01 Dose: 75 mcg Lidocaine (Lidoderm) 1 ea TD DAILY [facility] Last Admin: 04/05/17 10:43 Dose: 1 ea Lisinopril (Zestril) 5 mg PO DAILY [facility] Last Admin: 04/05/17 10:42 Dose: 5 mg Magnesium Oxide (Mag-Ox) 400 mg PO BID [facility] Last Admin: 04/05/17 18:12 Dose: 400 mg Metoprolol Tartrate (Lopressor) 25 mg PO DAILY [facility] Last Admin: 04/05/17 10:42 Dose: 25 mg Multivitamins (Thera Tab) 1 tab PO DAILY [facility] Last Admin: 04/05/17 10:41 Dose: 1 tab Nystatin (Nystop Topical Powder) 0 gm TOP Q6H PRN PRN Reason: Rash Last Admin: 04/05/17 10:48 Dose: 1 applic Oxycodone HCl (Oxycontin Extended Release Tab) 80 mg PO Q6 [facility] Last Admin: 04/06/17 06:00 Dose: 80 mg Oxycodone/Acetaminophen (Percocet 5/325 Mg Tab) 2 tab PO Q4H PRN PRN Reason: Pain, severe (8-10) Stop: 04/09/17 06:13 Last Admin: 04/06/17 06:24 Dose: 2 tab Pantoprazole Sodium (Protonix Ec Tab) 40 mg PO ACB [facility] Last Admin: 04/05/17 10:43 Dose: Not Given Warfarin Sodium (Coumadin) 10 mg PO 1800 [facility] Last Admin: 04/05/17 18:11 Dose: 10 mg Warfarin Sodium (Coumadin) 2.5 mg PO 1800 [facility] Last Admin: 04/05/17 18:11 Dose: 2.5 mg Zaleplon (Sonata) 10 mg PO HS [facility] Last Admin: 04/05/17 21:51 Dose: 10 mg Zinc Sulfate (Zinc Sulfate 220 Mg Cap) 220 mg PO DAILY [facility] Last Admin: 04/05/17 10:42 Dose: 220 mg - Labs Labs: 04/05/17 08:19 04/05/17 08:19 PT 13.7 Seconds (9.9-11.8) H 04/04/17 09:58 INR 1.27 (0.93-1.08) H 04/04/17 09:58 Attending/Attestation - Attestation I have personally seen and examined this patient.: Yes I have fully participated in the care of the patient.: Yes I have reviewed all pertinent clinical information, including history, physical exam and plan: Yes Notes (Text): I have seen and examined the patient at bedside. This is 56 year old male with history of HTN, CHF due to diastolic dysfunction, LE ulcers,COPD, JOSELUIS, chronic LE DVT, S/p IVC filter, Total Knee replacement, immobility, hypothyroidism, chronic pain, dyslipidemia, pressure ulcers on the back of thigh and buttocks who got admitted for evaluation of bilateral lower extremity edema, swelling and worsening pain. LE ultrasound negative. Surgery consult appreciated. No surgical intervention at this time. Wound care and podiatry consult appreciated. Wound culture is growing gram positive cocci and gram negative bacilli. Continue zyvox. Continue clonidine, lisinopril, levothyroxine, coumadin and protonix. Psych consult appreciated. Patient has to be off of isolation before he can go to psych floor. Patient states that he lives alone and needs help at home for ADL's and IADL's. Will consult keycase assembler. Upon discharge patient will follow up with Dr Gonzalez. Dr Jas Larios.
--- NOTE | 2017-04-03 16:50 | CP.PCM.PN ---
Subjective - Date & Time of Evaluation Date of Evaluation: 04/03/17 Time of Evaluation: 11:25 - Subjective Subjective: Comfortable, not distress, less pain in the legs, no fevers overnight. Objective - Vital Signs/Intake and Output Vital Signs (last 24 hours): Temp Pulse Resp BP Pulse Ox 97.9 F 66 22 137/73 96 04/03/17 08:00 04/03/17 08:00 04/03/17 08:00 04/03/17 08:00 04/03/17 08:00 Intake and Output: 04/03/17 04/03/17 06:59 18:59 Intake Total 1300 Output Total 2000 Balance -700 - Medications Medications: Current Medications Acetaminophen (Tylenol 325mg Tab) 650 mg PO Q6H PRN PRN Reason: Fever >100.4 F Clonidine HCl (Catapres) 0.1 mg PO BID [facility] Last Admin: 04/02/17 17:23 Dose: 0.1 mg Docusate Sodium (Colace) 100 mg PO TID [facility] Last Admin: 04/02/17 17:24 Dose: Not Given Finasteride (Proscar) 5 mg PO DAILY [facility] Last Admin: 04/02/17 09:49 Dose: 5 mg Furosemide (Lasix) 40 mg PO BID [facility] Last Admin: 04/02/17 17:22 Dose: 40 mg Linezolid (Zyvox 600mg/300ml D5w) 600 mg in 300 mls @ 200 mls/hr IVPB Q12 [facility] PRN Reason: Protocol Stop: 04/08/17 10:01 Last Admin: 04/02/17 21:14 Dose: 200 mls/hr Meropenem 1g/NS 100mL IVPB (Meropenem 1g/Ns 100ml Ivpb) 1 gm in 100 mls @ 100 mls/hr IVPB Q12 SANDRINE PRN Reason: Protocol Stop: 04/10/17 10:01 Insulin Human Lispro (Humalog) 0 units SC ACHS [facility] PRN Reason: Protocol Last Admin: 04/03/17 08:20 Dose: Not Given Levothyroxine Sodium (Synthroid) 75 mcg PO DAILY@0630 [facility] Last Admin: 04/03/17 06:23 Dose: 75 mcg Lidocaine (Lidoderm) 1 ea TD DAILY [facility] Last Admin: 04/02/17 09:54 Dose: 1 ea Lisinopril (Zestril) 5 mg PO DAILY [facility] Last Admin: 04/02/17 09:49 Dose: 5 mg Magnesium Oxide (Mag-Ox) 400 mg PO BID [facility] Last Admin: 04/02/17 17:23 Dose: 400 mg Metoprolol Tartrate (Lopressor) 25 mg PO DAILY [facility] Last Admin: 04/02/17 09:49 Dose: 25 mg Multivitamins (Thera Tab) 1 tab PO DAILY [facility] Last Admin: 04/02/17 09:48 Dose: 1 tab Nystatin (Nystop Topical Powder) 0 gm TOP Q6H PRN PRN Reason: Rash Oxycodone HCl (Oxycontin Extended Release Tab) 80 mg PO Q6 [facility] Last Admin: 04/03/17 05:10 Dose: 80 mg Oxycodone/Acetaminophen (Percocet 5/325 Mg Tab) 2 tab PO Q4H PRN PRN Reason: Pain, moderate (4-7) Stop: 04/06/17 00:45 Last Admin: 04/03/17 05:10 Dose: 2 tab Pantoprazole Sodium (Protonix Ec Tab) 40 mg PO ACB [facility] Last Admin: 04/03/17 08:27 Dose: 40 mg Warfarin Sodium (Coumadin) 10 mg PO 1800 [facility] PRN Reason: Protocol Last Admin: 04/02/17 17:23 Dose: 10 mg Zinc Sulfate (Zinc Sulfate 220 Mg Cap) 220 mg PO DAILY [facility] Last Admin: 04/02/17 09:48 Dose: 220 mg - Labs Labs: 04/03/17 06:30 04/03/17 06:30 PT 17.7 Seconds (9.9-11.8) H 04/02/17 08:00 INR 1.64 (0.93-1.08) H 04/02/17 08:00 - Constitutional Appears: Non-toxic, No Acute Distress - Head Exam Head Exam: NORMAL INSPECTION - ENT Exam ENT Exam: Mucous Membranes Moist - Neck Exam Neck Exam: absent: Lymphadenopathy, Meningismus - Respiratory Exam Respiratory Exam: Decreased Breath Sounds - Cardiovascular Exam Cardiovascular Exam: +S1, +S2 - GI/Abdominal Exam GI & Abdominal Exam: Soft. 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
[2017-04-04] MEDS: Oxycodone/Acetaminophen 5/325 mg Tab PO PRN ×4 (05:46→23:54)
[2017-04-04] MEDS: oxyCODONE 80 mg ER Tab (oxyCONTIN) PO SCH ×4 (05:47→23:52)
[2017-04-04] MEDS: Levothyroxine 75 MCG TAB PO SCH (05:47)
[2017-04-04] MEDS: Pantoprazole 40 mg EC Tab PO SCH (08:02)
[2017-04-04] MEDS: Insulin Lispro 1 UNITS/0.01 ML SC SCH ×4 (08:04→21:36)
[2017-04-04 08:42] LABS: ADD MANUAL DIFF? NO
[2017-04-04 08:45] LABS: BASO # 0.03 K/mm3 (0.0-2.0); BASO % 0.4 % (0.0-3.0); EOS # 0.3 (0.0-0.7); EOS % 5.1 % (1.5-5.0); GRAN # 4.55 (1.4-6.5); GRAN % 68.1 % (50.0-68.0); HEMATOCRIT 35.8 % (42.0-52.0); LYMPH # 1.4 (1.2-3.4); LYMPH % 21.3 % (22.0-35.0); MEAN CELL VOLUME 86.5 fL (80.0-105.0); MEAN CORPUSCULAR HEMOGLOBIN 28.5 pg (25.0-35.0); MEAN PLATELET VOLUME 11.4 fl (7.0-11.0); MONO # 0.3 (0.1-0.6); MONO % 5.1 % (1.0-6.0); PLATELET COUNT 178 10^3/uL (120.0-450.0); RED CELL DISTRIBUTION WIDTH 13.6 % (11.5-14.5); WHITE BLOOD COUNT 6.7 10^3/ul (4.5-11.0)
[2017-04-04 08:59] LABS: ALB/GLOB RATIO 0.9 (1.1-1.8); ALKALINE PHOSPHATASE 136 U/L (38-133); ALT/SGPT 29 U/L (7-56); AST/SGOT 23 U/L (15-59); BILIRUBIN,TOTAL 0.4 mg/dL (0.2-1.3); BLOOD UREA NITROGEN 18 mg/dL (7-21); CALCIUM 9.1 mg/dL (8.4-10.5); CARBON DIOXIDE 33 mmol/L (21-33); CHLORIDE 95 mmol/L (95-110); GFR AFRICAN-AMERICAN > 60; GLUCOSE,RANDOM 107 mg/dL (70-110); POTASSIUM 3.8 mmol/L (3.6-5.0); SODIUM 138 mmol/L (132-148); TOTAL PROTEIN 7.8 g/dL (5.8-8.3)
[2017-04-04] MEDS: Magnesium Oxide 400 mg Tab UD PO SCH ×2 (09:55→17:18)
[2017-04-04] MEDS: Multivitamin Therapeutic Tab PO SCH (09:56)
[2017-04-04] MEDS: Linezolid 600 mg in D5W 300 ml 600 MG/300 ML BAG IVPB SCH (09:58)
[2017-04-04] MEDS: Meropenem 1g/NS 100mL IVPB 1 GM/100 ML PIGGYBACK IVPB SCH ×2 (09:59→21:23)
[2017-04-04 10:14] LABS: INR 1.27 (0.93-1.08)
--- NOTE | 2017-04-04 10:27 | CP.PCM.PCO ---
Physician Communication Note - Physician Communication Note Physician Communication Note: On High doses Opioids-No surgery recommended
--- NOTE | 2017-04-04 11:06 | PN ---
DATE: 04/04/2017 A 57-year-old morbidly obese diabetic male seen at bedside for continued evaluation and management of bilateral leg ulcerations with resultant cellulitis. The left leg is more painful and severe than t he right leg. The patient was seen with Dr. Gonzalez at bedside. VITAL SIGNS: Reveal a temperature of 98.9, pulse rate of 83, blood pressure 124/74, and respiratory rate of 20. LABORATORY DATA: Reveal a white count of 6.7, hemoglobin of 11.8, hematocrit of 35.8 and platelet co unt of 178. ESR of 76. Microbiology report of the left leg reveals gram-negative rods and rare gram -positive cocci present. Venous Dopplers reveal no presence of deep vein thrombosis. OBJECTIVE: Right lower leg presents with superficial venous ulcerations on the anterior aspect of hi s lower leg that measures approximately 0.6 x 0.5 cm x 0.1 cm. The base of the ulcer is granular wit h minimal serous drainage. However, the entire leg remains edematous and erythematous with increased temperature gradient. Left lower leg presents with the large posterior lower leg ulceration that me asures approximately 11 x 10 cm with a depth of approximately 0.1 cm. Base of the ulceration is prim arily granular. There is noted to be moderate serous drainage. There is no purulence. There is no malodor. There is no abscess formation noted. There are no signs of wound probing to bone. The are a remains edematous and erythematous. ASSESSMENT: Chronic stasis ulcerations to the left lower leg, stage II. PLAN: The patient spoke at length with Dr. Gonzalez and I about the possibility of having someone home with him, helping him, as he is unable to care for himself. The patient states that although he ceja s not have much money, he is above the threshold for Medicaid at this time. The patient's legs were both cleansed with normal sterile saline and application of Xeroform and dry sterile compressive dres sing was used to both lower legs. The patient seemed more upbeat today. We will continue with daily dressing changes while he is in-house. Parish Zavaleta DPM cc: [phone] TT: 04/04/2017 11:05:50 Confirmation # [id number] Dictation # [id number] rn
[2017-04-04] MEDS: Lidocaine 5% Patch TD SCH (11:46)
--- NOTE | 2017-04-04 11:59 | PN ---
DATE: 04/04/2017 Shortly, the patient is a 57-year-old male with history of multiple medical issues includin g chronic leg ulcer, multiple infections, CHF, COPD, DVT, status post IVC filter, diabetes, hypertens ion, sleep apnea. The patient was admitted on the medical side for lower extremity cellulitis. Psyc h consult called because the patient was found to be depressed. This comic writer initially spoke to the patient yesterday. Cymbalta as well as Sonata was started yesterday. The patient reported that he slept better, but dose to be increased. The patient tolerated Cymbalta well. Besides that, there are no new changes with the patient's presentation. The patient is still on contact isolation. Cornelio t is why this comic writer cannot accept the patient into the psychiatric inpatient unit. Vital signs are stable. MEDICATIONS: Reviewed. The patient is on Catapres, Tylenol, Colace, Cymbalta 20 mg daily was starte d, Proscar, Lasix, Humalog, Synthroid, also Lidoderm, Zyvox, Zestril, magnesium oxide, meropenem, Lop ressor, multivitamins, oxycodone, Percocet, Protonix, Warfarin, Coumadin, zinc sulfate as well as Son sp will be increased to 10 mg at the nighttime. MENTAL STATUS EXAMINATION: The patient presented to be depressed, intermittent eye contact, at times tearful. Speech was monotonic, low volume. Mood described as depressed and hopeless. Thought proc ess was coherent and goal directed. Thought content: The patient denied visual, auditory, tactile h allucinations. Denied paranoid ideation. Does wish to be . No active plan or intent to kill hi mself. The patient denied hearing voices, denied seeing things. Insight and judgment are improving. Impulses are well controlled. IMPRESSION: Rule out major depressive disorder, rule out depression and anxiety due to general medic al condition. The patient has multiple medical issues. Please see medical team notes for more detai led information. The patient has methicillin-resistant Staphylococcus aureus, status post wound vacu um placement on upper thigh wounds. The patient has left leg infection, morbidly obese, diabetes, hy pertension, chronic obstructive pulmonary disease, hypothyroidism, bilateral lower extremity swelling due to status, osteoarthritis, chronic pain syndrome. Please see medical team note for more d etailed information about patient's diagnosis. PLAN: This comic writer offered the patient admission to the psychiatric inpatient unit. The patient is w illing to do so. At the same time, Cymbalta was started yesterday at 20 mg daily. The patient asmita ated that well. Sonata was started yesterday with 5 mg at the nighttime. The patient slept better, b ut still frequent waking up during the nighttime. Willing to increase the dose. Meanwhile, continue antibiotics, continue monitoring. The patient contracted for safety. Does not need to be on 1:1 ob servation. After medical clearance, patient might need to go to the psychiatric inpatient unit. At the same time, if patient will be improving from a medical standpoint, this comic writer cannot exclude opt ion that patient will be feeling better from the psychiatric standpoint as well. Meanwhile, this wri ter will keep following patient on the medical side and advise accordingly. Thank you very much for letting me participate in the care of your patient. Tania Gramajo MD cc: [phone] TT: 04/04/2017 11:58:24 Confirmation # [id number] Dictation # [id number] devang
--- NOTE | 2017-04-04 18:50 | PN ---
DATE: 04/04/2017 The patient is in no acute distress; patient was seen early this morning. He appears depressed. PHYSICAL EXAMINATION: VITAL SIGNS: Temperature is 98, blood pressure is 150/70, respiratory rate of 16. HEENT: Unremarkable. NECK: Supple. LUNGS: Have decreased breath sounds. HEART: Normal S1, S2. ABDOMEN: Soft. LABORATORY DATA: Reveals a white count of 6.7, hemoglobin 11. A sed rate of 76. Chemistries reveal the patient has a BUN of 18, creatinine of 1.1. Microbiology reveals Pseudomonas aeruginosa and Esc herichia coli. Dr. Tania Gramajo's progress note is reviewed. ASSESSMENT AND PLAN: A 57-year-old morbidly obese male, super morbid obese male, with a BMI of over 60 and has a skin and skin structure infection, bilateral leg infection, moreso on the left leg than the right, currently on Zyvox. Also suffering from depression as recently his mother has . Currently was started on Cymbalta by Dr. Tania Gramajo yesterday. The patient will discontinue his Zyvox since the drug-drug interaction of Cymbalta and Zyvox may cause serotonin syndrome. We wi ll continue the meropenem. The patient does have Pseudomonas aeruginosa and Escherichia coli from th e leg culture. He does have renal insufficiency. We will use p.o. doxycycline pending the sensitivi ty of the gram-negative rods. Ralph Blanco MD cc: [phone] TT: 04/04/2017 18:49:09 Confirmation # [id number] Dictation # [id number] jn
[2017-04-05] MEDS: Levothyroxine 75 MCG TAB PO SCH (06:07)
[2017-04-05] MEDS: oxyCODONE 80 mg ER Tab (oxyCONTIN) PO SCH ×4 (06:07→23:58)
[2017-04-05] MEDS: Oxycodone/Acetaminophen 5/325 mg Tab PO PRN ×4 (06:08→23:58)
[2017-04-05] MEDS: Insulin Lispro 1 UNITS/0.01 ML SC SCH ×3 (08:13→16:30)
[2017-04-05 08:21] LABS: ADD MANUAL DIFF? NO
[2017-04-05 08:23] LABS: BASO # 0.03 K/mm3 (0.0-2.0); BASO % 0.4 % (0.0-3.0); EOS # 0.3 (0.0-0.7); EOS % 4.9 % (1.5-5.0); GRAN # 4.76 (1.4-6.5); GRAN % 68.2 % (50.0-68.0); HEMATOCRIT 35.1 % (42.0-52.0); LYMPH # 1.4 (1.2-3.4); LYMPH % 20.6 % (22.0-35.0); MEAN CELL VOLUME 87.1 fL (80.0-105.0); MEAN CORPUSCULAR HEMOGLOBIN 28.5 pg (25.0-35.0); MEAN CORPUSCULAR HGB CONC 32.8 g/dl (31.0-37.0); MEAN PLATELET VOLUME 11.7 fl (7.0-11.0); MONO # 0.4 (0.1-0.6); MONO % 5.9 % (1.0-6.0); PLATELET COUNT 163 10^3/uL (120.0-450.0); RED CELL DISTRIBUTION WIDTH 13.5 % (11.5-14.5)
[2017-04-05 08:41] LABS: ALB/GLOB RATIO 0.9 (1.1-1.8); ALKALINE PHOSPHATASE 131 U/L (38-133); ALT/SGPT 27 U/L (7-56); AST/SGOT 23 U/L (15-59); BILIRUBIN,TOTAL 0.3 mg/dL (0.2-1.3); BLOOD UREA NITROGEN 24 mg/dL (7-21); CALCIUM 9.1 mg/dL (8.4-10.5); CARBON DIOXIDE 34 mmol/L (21-33); CHLORIDE 94 mmol/L (98-107); GFR AFRICAN-AMERICAN > 60; GLUCOSE,RANDOM 137 mg/dL (70-110); SODIUM 137 mmol/L (132-148); TOTAL PROTEIN 7.5 g/dL (5.8-8.3)
--- NOTE | 2017-04-05 10:29 | PN ---
DATE: 04/05/2017 Shortly, patient is a 57-year-old male, multiple medical problems, morbidly obese, bilatera l lower extremity infection. The patient also has history of CHF, COPD, DVT, status post IVC filter, diabetes, hypertension, sleep apnea. The patient was admitted on the medical side for lower extremi ty cellulitis. Psych consult was called for evaluation of depressive symptoms. The patient was star enio on Cymbalta as well as Sonata. The patient tolerates these medications well. The patient was fo llowed up today at the morning time. The patient presented to have brighter affect, was smiling appr opriately. The patient reported decent night's sleep, but still reported to feel depressed, but with some improvement. VITAL SIGNS: This procedure writer reviewed, seem to be stable. Temperature 98.3, pulse 61, blood pressure 16 5/92, respirations 18, oxygen saturation is 95%. MEDICATIONS: Reviewed. Tylenol, Catapres, Colace, doxycycline, Cymbalta will be 30 mg daily, Prosca r, Lasix, insulin, Synthroid, Lidoderm, , magnesium oxide, meropenem, Lopressor, multivitamins, nystatin, oxycodone, Percocet, Protonix, Coumadin, Sonata 10 mg and zinc sulfate. LABORATORIES: Reviewed. No acute changes. MENTAL STATUS EXAMINATION: The patient appears to be depressed. Fair eye contact. Speech was under productive, yes/no answers. Mood described "I feel a little better." Affect was constricted, but re active, mood congruent. Thought process was coherent, goal directed. Thought content: The patient denied visual, auditory, tactile hallucinations. Denied paranoid ideations. The patient does not pr esent to be psychotic. At the same time, patient appears to be depressed. Denied thoughts of killin g himself or others. Insight and judgment are improving. Impulses are well controlled. IMPRESSION: Rule out major depressive disorder, rule out mood disorder due to general medical condit ion. The patient has multiple medical issues. Please see medical team notes for more detailed infor mation. PLAN: Continue current management. Discussed with Dr. Blanco. At the same time, patient is on Zyvox and patient is on Cymbalta. Dr. Blanco expressed concerns about serotonin syndrome, but we will monitor patient closely. Continue Sonata. After medical clearance and clearance from infectio us disease, patient might need to go to the psychiatric inpatient unit for further evaluation and sta bilization. Case was discussed with nursing staff and I will follow up and advise accordingly. At t he same time, this procedure writer cannot exclude that patient will be improving and his mental status will be improving after he will become feeling better from the medical standpoint, but meanwhile, we will fo llow up and advise accordingly. Thank you very much for letting me participate in care of your patient. Tania Gramajo MD cc: [phone] TT: 04/05/2017 10:28:57 Confirmation # [id number] Dictation # [id number] en
[2017-04-05] MEDS: Meropenem 1g/NS 100mL IVPB 1 GM/100 ML PIGGYBACK IVPB SCH ×2 (10:41→21:51)
[2017-04-05] MEDS: Multivitamin Therapeutic Tab PO SCH (10:41)
[2017-04-05] MEDS: Lidocaine 5% Patch TD SCH (10:43)
[2017-04-05] MEDS: Pantoprazole 40 mg EC Tab PO SCH (10:43)
[2017-04-05] MEDS: Magnesium Oxide 400 mg Tab UD PO SCH ×2 (10:46→18:12)
--- NOTE | 2017-04-05 11:27 | PN ---
DATE: 04/05/2017 The patient is in bed in no acute distress. The patient is seen earlier this morning in 575, bed 1. PHYSICAL EXAMINATION: VITAL SIGNS: Temperature is 98. Blood pressure is 160/7____, respiratory rate of 18. HEENT: Unremarkable. NECK: Supple. LUNGS: Have decreased breath sounds. HEART: Normal S1, S2. ABDOMEN: Soft, nontender. LABORATORY EXAMINATION: Reveals a white count of 7, hemoglobin 11, and platelets of 163. BUN of 24, creatinine of 1.2. Alk phos is 136. Microbiology reveals Pseudomonas aeruginosa, E. coli, and Stap h aureus. The Pseudomonas aeruginosa is resistant organism. The E. coli is sensitive to meropenem. The pseudomonas is multidrug resistant. E. coli is ESBL posi tive. Staph aureus is oxacillin sensitive. Pseudomonas is sensitive to tobramycin. ASSESSMENT AND PLAN: This is a 57-year-old male with morbid obesity with a body mass index of over 6 0 with skin and skin structure infections, bilateral leg infection with multidrug resistant Pseudomon as, extended-spectrum beta-lactamase Escherichia coli, and sensitive Staph aureus, and now he is star enio on an anti-depressive medication. Unable to use Zyvox. Currently on p.o. clindamycin and on IV meropenem. I stopped his Zyvox because the Cymbalta was started in order to avoid serotonin syndrome . We will continue the present course. The patient is suffering from depression. His mother a few months ago. Ralph Blanco MD cc: [phone] TT: 04/05/2017 11:26:35 Confirmation # [id number] Dictation # [id number] jn
[2017-04-05] MEDS: diltiaZEM 180 mg/24 Hours CD Cap PO SCH (16:30)
--- NOTE | 2017-04-06 00:14 | PN ---
DATE: 04/04/2017 HISTORY OF PRESENT ILLNESS: The patient is comfortable, no distress. He is getting his wound dressi ng changed. It seems a lot better. The superficial before wound on the right leg with spreading 70% of the circumference of the right leg with skin macerations has been change, Betadine antibiotic [place] lied. The patient has been seen by podiatry, Dr. Zavaleta and dressing change has been done. On the l eft leg, also right leg, there is some small ulcer and dressing has been changed. Seems to be doing better. Leg edema is better and seems better in general on IV antibiotic. PHYSICAL EXAMINATION: VITAL SIGNS: Temperature 98.3, heart rate 61, blood pressure 156/83, respirations 18, saturation 95% on room air. HEAD AND NECK: Normal. No JVD, no thyromegaly. CHEST: Clear. CARDIAC: First and second sounds are normal. ABDOMEN: Obese. EXTREMITIES: Has decreased edema and there is cellulitis of the left leg and right leg ulcer, which dressing has been changed. NEUROLOGIC: Normal. LABORATORY DATA: Show white count 6.7, hemoglobin 11.8, hematocrit 35.8, platelets 178. Chemistries : Sodium 137, potassium 4, chloride 94, bicarbonate 34, BUN 24, creatinine 1.2, blood sugar 137. Li martín function test is normal. IMPRESSION AND PLAN: 1. Cellulitis, both lower extremities. Continue diuretics. Continue IV antibiotic. The patient se ems to be doing well. Currently on IV meropenem. 2. Chronic deep venous thrombosis, continue Coumadin. The patient had last PT/INR, according to her e, is nontherapeutic, 1.27. Will double up his Coumadin. His Coumadin is getting 12.5. We are lukas g to give him 15 mg. I discussed with the patient about Eliquis, which is more steady therapeutic ra nge, better than the noncompliance with Coumadin and recurrent deep venous thrombosis and worsening l eg swelling; however, because this patient's risk of fall and hitting his head is more worse with Jolly jessica than Coumadin, although, both are bad, I prefer Coumadin for now the time being because of wides pread availability of the antidote. We will continue that. We will give him 15 mg Coumadin and repe at PT/INR in the morning. 3. Morbid obesity. Discussed with the patient about sleeve surgery. The patient failed diet. Part of his problem will improve with diet and weight loss. 4. Hypertension, hypothyroidism, morbid obesity, chronic osteoarthritis, chronic back pain, chronic obstructive pulmonary disease, obstructive sleep apnea, congestive heart failure. Continue current m edications. Continue doxycycline, insulin coverage for underlying diabetes. We will put him back on metformin. Yvon Gonzalez MD cc: [phone] TT: 04/06/2017 00:13:20 Confirmation # [id number] Dictation # [id number] mn
--- NOTE | 2017-04-06 00:19 | PN ---
DATE: 04/05/2017 HISTORY OF PRESENT ILLNESS: The patient seems to be doing better, is comfortable, stable, on IV anti biotic, meropenem and doxycycline. No new complaint. Received his Coumadin. PHYSICAL EXAMINATION: VITAL SIGNS: Temperature 97.8, heart rate 55, blood pressure 165/92, respirations 18, saturation 95% on room air. HEAD AND NECK: Normal. No JVD, no thyromegaly. CHEST: Clear, good entry. CARDIAC: First and second sounds are normal. ABDOMEN: Soft, nontender, obese. EXTREMITIES: Bilateral leg edema, improved. Cellulitis has been . IMPRESSION AND PLAN: 1. Cellulitis lower extremity. Continue local wound care, IV antibiotics, doxycycline and juan jose openem, doing well. 2. Chronic deep venous thrombosis. Continue Coumadin, monitor PT/INR. 3. Hypertension, chronic obstructive pulmonary disease, history of congestive heart failure, right h eart failure, morbid obesity, obstructive sleep apnea. The patient will continue current therapy. C hronic back pain, chronic joint pain, bilateral knee pain and left knee replacement. Continue curren t pain medicine as it is. Follow up clinically. Yvon Gonzalez MD cc: [phone] TT: 04/06/2017 00:19:18 Confirmation # [id number] Dictation # [id number] mn
[2017-04-06] MEDS: oxyCODONE 80 mg ER Tab (oxyCONTIN) PO SCH ×3 (06:00→18:18)
[2017-04-06] MEDS: Levothyroxine 75 MCG TAB PO SCH (06:01)
[2017-04-06] MEDS: Oxycodone/Acetaminophen 5/325 mg Tab PO PRN ×3 (06:24→18:18)
[2017-04-06] MEDS: Insulin Lispro 1 UNITS/0.01 ML SC SCH ×4 (06:51→17:22)
[2017-04-06] MEDS: Pantoprazole 40 mg EC Tab PO SCH (08:26)
--- NOTE | 2017-04-06 09:46 | CP.PCM.PN ---
Subjective - Date & Time of Evaluation Date of Evaluation: 04/06/17 Time of Evaluation: 09:30 - Subjective Subjective: 56 y/o male seen at bedside concerning prognosis of bilateral venous stasis ulcerations of the lower extremities. Patient grades current leg pain a 4/10 to left leg when touched and when pressure focused on heel. He denies n/f/v/c/d/ sob. Objective - Vital Signs/Intake and Output Vital Signs (last 24 hours): Temp Pulse Resp BP Pulse Ox 97.8 F 55 L 18 125/67 95 04/05/17 16:00 04/05/17 16:30 04/05/17 16:00 04/05/17 18:10 04/05/17 16:00 Intake and Output: 04/06/17 04/06/17 06:59 18:59 Intake Total 1680 Output Total 2000 Balance -320 - Medications Medications: Current Medications Acetaminophen (Tylenol 325mg Tab) 650 mg PO Q6H PRN PRN Reason: Fever >100.4 F Clonidine HCl (Catapres) 0.1 mg PO BID [facility] Last Admin: 04/05/17 18:11 Dose: 0.1 mg Diltiazem HCl (Cardizem Cd) 180 mg PO DAILY [facility] Last Admin: 04/05/17 16:30 Dose: Not Given Docusate Sodium (Colace) 100 mg PO TID [facility] Last Admin: 04/05/17 18:12 Dose: Not Given Doxycycline Hyclate (Doryx) 100 mg PO Q12 [facility] PRN Reason: Protocol Stop: 04/11/17 22:01 Last Admin: 04/05/17 21:51 Dose: 100 mg Duloxetine HCl (Cymbalta) 30 mg PO DAILY [facility] Last Admin: 04/05/17 10:42 Dose: 30 mg Finasteride (Proscar) 5 mg PO DAILY [facility] Last Admin: 04/05/17 10:41 Dose: 5 mg Furosemide (Lasix) 40 mg PO BID [facility] Last Admin: 04/05/17 18:10 Dose: 40 mg Meropenem 1g/NS 100mL IVPB (Meropenem 1g/Ns 100ml Ivpb) 1 gm in 100 mls @ 100 mls/hr IVPB Q12 [facility] PRN Reason: Protocol Stop: 04/10/17 10:01 Last Admin: 04/05/17 21:51 Dose: 100 mls/hr Colistimethate Sodium 150 mg/ (Sodium Chloride) 100 mls @ 200 mls/hr IV Q12 [facility] Insulin Human Lispro (Humalog) 0 units SC ACHS [facility] PRN Reason: Protocol Last Admin: 04/06/17 08:21 Dose: Not Given Levothyroxine Sodium (Synthroid) 75 mcg PO DAILY@0630 [facility] Last Admin: 04/06/17 06:01 Dose: 75 mcg Lidocaine (Lidoderm) 1 ea TD DAILY [facility] Last Admin: 04/05/17 10:43 Dose: 1 ea Lisinopril (Zestril) 5 mg PO DAILY [facility] Last Admin: 04/05/17 10:42 Dose: 5 mg Magnesium Oxide (Mag-Ox) 400 mg PO BID [facility] Last Admin: 04/05/17 18:12 Dose: 400 mg Metoprolol Tartrate (Lopressor) 25 mg PO DAILY [facility] Last Admin: 04/05/17 10:42 Dose: 25 mg Multivitamins (Thera Tab) 1 tab PO DAILY [facility] Last Admin: 04/05/17 10:41 Dose: 1 tab Nystatin (Nystop Topical Powder) 0 gm TOP Q6H PRN PRN Reason: Rash Last Admin: 04/05/17 10:48 Dose: 1 applic Oxycodone HCl (Oxycontin Extended Release Tab) 80 mg PO Q6 [facility] Last Admin: 04/06/17 06:00 Dose: 80 mg Oxycodone/Acetaminophen (Percocet 5/325 Mg Tab) 2 tab PO Q4H PRN PRN Reason: Pain, severe (8-10) Stop: 04/09/17 06:13 Last Admin: 04/06/17 06:24 Dose: 2 tab Pantoprazole Sodium (Protonix Ec Tab) 40 mg PO ACB [facility] Last Admin: 04/06/17 08:26 Dose: 40 mg Warfarin Sodium (Coumadin) 10 mg PO 1800 [facility] Last Admin: 04/05/17 18:11 Dose: 10 mg Warfarin Sodium (Coumadin) 2.5 mg PO 1800 [facility] Last Admin: 04/05/17 18:11 Dose: 2.5 mg Zaleplon (Sonata) 10 mg PO HS [facility] Last Admin: 04/05/17 21:51 Dose: 10 mg Zinc Sulfate (Zinc Sulfate 220 Mg Cap) 220 mg PO DAILY [facility] Last Admin: 04/05/17 10:42 Dose: 220 mg - Labs Labs: 04/05/17 08:19 04/05/17 08:19 PT 13.7 Seconds (9.9-11.8) H 04/04/17 09:58 INR 1.27 (0.93-1.08) H 04/04/17 09:58 - Constitutional Appears: Well, Non-toxic, No Acute Distress - Extremities Exam Additional comments: Vasc: Non-palpable pedal pulses due to edema b/l, TG warm to warm, CFT < 3 sec to all digits, +1 pitting edema Neuro: grossly diminished Derm: +1 pitting edema to legs bilateral, localized erythema to mid-calf bilateral. Cellulitis localized to superficial ulcerations along: Left posterior distal 1/2 of leg superficial ulceration measuring 13 x 7.5cm with heavy serous drainage noted. Absent undermining on a granular base with moderate jamila-wound macerations, and active serous drainage. Right distal medial leg, superficial open lesion measuring 3x1.6 cm on the on a fibro-granular base, no purulence, minor serous drainage, no active bleeding, no undermining, no tracking, no probe to bone MUSC: pain on palpation of posterior and medial legs b/l - Neurological Exam Neurological Exam: Alert, Awake, Oriented x3 Assessment and Plan - Assessment and Plan (Free Text) Assessment: 56 y/o male cellulitis and bilateral superficial venous stasis ulcerations Plan: patient evaluated and seen at bedside. Discussed with attending Dr. Daniels labs and vitals reviewed; afebrile. continue IV abx per ID cleansed legs with saline. Right leg dressed with skin protectant and DSD. Left leg dressing changed to Maxorb, ABD, kerlix to bilateral legs patient encouraged to begin ambulating as tolerated. Left leg wound culture results shoe. Pseudomonas aeriginosa, E. coli, & staph aureus. IV medications per ID: noted treatment regimen change to Meropenem and Clindamycin podiatry will continue to monitor while patient remains in house
[2017-04-06] MEDS: Meropenem 1g/NS 100mL IVPB 1 GM/100 ML PIGGYBACK IVPB SCH ×2 (10:02→21:54)
[2017-04-06] MEDS: Lidocaine 5% Patch TD SCH (10:04)
[2017-04-06] MEDS: Multivitamin Therapeutic Tab PO SCH (10:06)
[2017-04-06] MEDS: diltiaZEM 180 mg/24 Hours CD Cap PO SCH (10:07)
[2017-04-06] MEDS: Magnesium Oxide 400 mg Tab UD PO SCH ×2 (10:07→17:33)
[2017-04-06 12:51] LABS: INR 1.51 (0.93-1.08)
--- NOTE | 2017-04-06 16:31 | CP.PCM.PCO ---
Physician Communication Note - Physician Communication Note Physician Communication Note: pt was seen by a resident, no acute changes, pt is imrpoving, will f/u
--- NOTE | 2017-04-06 17:53 | CP.PCM.PN ---
Subjective - Date & Time of Evaluation Date of Evaluation: 04/06/17 Time of Evaluation: 10:20 - Subjective Subjective: Still having pain in the left leg but less, no fevers overnight. Objective - Vital Signs/Intake and Output Vital Signs (last 24 hours): Temp Pulse Resp BP Pulse Ox 97.8 F 55 L 18 125/67 95 04/05/17 16:00 04/05/17 16:30 04/05/17 16:00 04/05/17 18:10 04/05/17 16:00 Intake and Output: 04/06/17 04/06/17 06:59 18:59 Intake Total 1680 Output Total 2000 Balance -320 - Medications Medications: Current Medications Acetaminophen (Tylenol 325mg Tab) 650 mg PO Q6H PRN PRN Reason: Fever >100.4 F Clonidine HCl (Catapres) 0.1 mg PO BID [facility] Last Admin: 04/05/17 18:11 Dose: 0.1 mg Diltiazem HCl (Cardizem Cd) 180 mg PO DAILY [facility] Last Admin: 04/05/17 16:30 Dose: Not Given Docusate Sodium (Colace) 100 mg PO TID [facility] Last Admin: 04/05/17 18:12 Dose: Not Given Doxycycline Hyclate (Doryx) 100 mg PO Q12 [facility] PRN Reason: Protocol Stop: 04/11/17 22:01 Last Admin: 04/05/17 21:51 Dose: 100 mg Duloxetine HCl (Cymbalta) 30 mg PO DAILY [facility] Last Admin: 04/05/17 10:42 Dose: 30 mg Finasteride (Proscar) 5 mg PO DAILY [facility] Last Admin: 04/05/17 10:41 Dose: 5 mg Furosemide (Lasix) 40 mg PO BID [facility] Last Admin: 04/05/17 18:10 Dose: 40 mg Meropenem 1g/NS 100mL IVPB (Meropenem 1g/Ns 100ml Ivpb) 1 gm in 100 mls @ 100 mls/hr IVPB Q12 [facility] PRN Reason: Protocol Stop: 04/10/17 10:01 Last Admin: 04/05/17 21:51 Dose: 100 mls/hr Colistimethate Sodium 150 mg/ (Sodium Chloride) 100 mls @ 200 mls/hr IV Q12 [facility] Insulin Human Lispro (Humalog) 0 units SC ACHS [facility] PRN Reason: Protocol Last Admin: 04/06/17 08:21 Dose: Not Given Levothyroxine Sodium (Synthroid) 75 mcg PO DAILY@0630 [facility] Last Admin: 04/06/17 06:01 Dose: 75 mcg Lidocaine (Lidoderm) 1 ea TD DAILY [facility] Last Admin: 04/05/17 10:43 Dose: 1 ea Lisinopril (Zestril) 5 mg PO DAILY [facility] Last Admin: 04/05/17 10:42 Dose: 5 mg Magnesium Oxide (Mag-Ox) 400 mg PO BID [facility] Last Admin: 04/05/17 18:12 Dose: 400 mg Metoprolol Tartrate (Lopressor) 25 mg PO DAILY [facility] Last Admin: 04/05/17 10:42 Dose: 25 mg Multivitamins (Thera Tab) 1 tab PO DAILY [facility] Last Admin: 04/05/17 10:41 Dose: 1 tab Nystatin (Nystop Topical Powder) 0 gm TOP Q6H PRN PRN Reason: Rash Last Admin: 04/05/17 10:48 Dose: 1 applic Oxycodone HCl (Oxycontin Extended Release Tab) 80 mg PO Q6 [facility] Last Admin: 04/06/17 06:00 Dose: 80 mg Oxycodone/Acetaminophen (Percocet 5/325 Mg Tab) 2 tab PO Q4H PRN PRN Reason: Pain, severe (8-10) Stop: 04/09/17 06:13 Last Admin: 04/06/17 06:24 Dose: 2 tab Pantoprazole Sodium (Protonix Ec Tab) 40 mg PO ACB [facility] Last Admin: 04/06/17 08:26 Dose: 40 mg Warfarin Sodium (Coumadin) 10 mg PO 1800 [facility] Last Admin: 04/05/17 18:11 Dose: 10 mg Warfarin Sodium (Coumadin) 2.5 mg PO 1800 [facility] Last Admin: 04/05/17 18:11 Dose: 2.5 mg Zaleplon (Sonata) 10 mg PO HS [facility] Last Admin: 04/05/17 21:51 Dose: 10 mg Zinc Sulfate (Zinc Sulfate 220 Mg Cap) 220 mg PO DAILY [facility] Last Admin: 04/05/17 10:42 Dose: 220 mg - Labs Labs: 04/05/17 08:19 04/05/17 08:19 PT 13.7 Seconds (9.9-11.8) H 04/04/17 09:58 INR 1.27 (0.93-1.08) H 04/04/17 09:58 - Constitutional Appears: Non-toxic, No Acute Distress - Head Exam Head Exam: NORMAL INSPECTION - ENT Exam ENT Exam: Mucous Membranes Moist - Neck Exam Neck Exam: absent: Lymphadenopathy, Meningismus - Respiratory Exam Respiratory Exam: Decreased Breath Sounds - Cardiovascular Exam Cardiovascular Exam: +S1, +S2 - GI/Abdominal Exam GI & Abdominal Exam: Soft. absent: Tenderness - Extremities Exam Additional comments: left leg with dressings in place Assessment and Plan - Assessment and Plan (Free Text) Plan: Assessment skin and skin structure infection with bilateral leg infected ulcers in a patient with recurrent leg infections and venous stasis, now growing MSSA and multidrug resistant Pseudomonas and ESBL E. coli S/P wound vacuum placement for upper thigh wounds history of Skin and skin structure infection of the left lower extremity with Pseudomonas, Enterococcus and MRSA in a patient with recurrent left leg infection Morbid obesity with BMI of 43 DM HTN COPD hyopthyroidism bilateral lower extremity swelling due to venous stasis Osteoarthritis Chronic pain syndrome Plan continue Doxycycline, Merrem and add Colistin - target 7-10 days of therapy
[2017-04-07] MEDS: Oxycodone/Acetaminophen 5/325 mg Tab PO PRN ×4 (00:10→18:06)
[2017-04-07] MEDS: oxyCODONE 80 mg ER Tab (oxyCONTIN) PO SCH ×4 (00:11→18:07)
[2017-04-07 07:18] LABS: HEMATOCRIT 36.9 % (42.0-52.0); MEAN CELL VOLUME 87.9 fL (80.0-105.0); MEAN CORPUSCULAR HEMOGLOBIN 28.3 pg (25.0-35.0); MEAN CORPUSCULAR HGB CONC 32.2 g/dl (31.0-37.0); MEAN PLATELET VOLUME 11.6 fl (7.0-11.0); WHITE BLOOD COUNT 6.9 10^3/ul (4.5-11.0)
[2017-04-07 07:25] LABS: INR 1.76 (0.93-1.08)
[2017-04-07 07:43] LABS: BLOOD UREA NITROGEN 40 mg/dL (7-21); CALCIUM 9.3 mg/dL (8.4-10.5); CARBON DIOXIDE 32 mmol/L (21-33); CHLORIDE 94 mmol/L (98-107); GFR AFRICAN-AMERICAN > 60; GLUCOSE,RANDOM 103 mg/dL (70-110); MAGNESIUM 2.1 mg/dL (1.7-2.2); POTASSIUM 4.6 mmol/L (3.6-5.0); SODIUM 134 mmol/L (132-148)
[2017-04-07] MEDS: Insulin Lispro 1 UNITS/0.01 ML SC SCH ×4 (08:24→22:00)
[2017-04-07] MEDS: Pantoprazole 40 mg EC Tab PO SCH (08:24)
[2017-04-07] MEDS: diltiaZEM 180 mg/24 Hours CD Cap PO SCH (09:33)
[2017-04-07] MEDS: Multivitamin Therapeutic Tab PO SCH (09:34)
[2017-04-07] MEDS: Magnesium Oxide 400 mg Tab UD PO SCH ×2 (09:34→17:56)
[2017-04-07] MEDS: Lidocaine 5% Patch TD SCH (09:35)
[2017-04-07] MEDS: Meropenem 1g/NS 100mL IVPB 1 GM/100 ML PIGGYBACK IVPB SCH ×2 (09:36→21:59)
--- NOTE | 2017-04-07 13:39 | CP.PCM.PN ---
Subjective - Date & Time of Evaluation Date of Evaluation: 04/07/17 Time of Evaluation: 11:25 - Subjective Subjective: Still with leg drainage and pain but a little less. No fevers overnight. Objective - Vital Signs/Intake and Output Vital Signs (last 24 hours): Temp Pulse Resp BP Pulse Ox 97.9 F 47 L 20 124/64 94 L 04/07/17 07:30 04/07/17 07:30 04/07/17 07:30 04/07/17 07:30 04/07/17 07:30 Intake and Output: 04/07/17 04/07/17 06:59 18:59 Intake Total 980 Output Total 2000 Balance -1020 - Medications Medications: Current Medications Acetaminophen (Tylenol 325mg Tab) 650 mg PO Q6H PRN PRN Reason: Fever >100.4 F Clonidine HCl (Catapres) 0.1 mg PO BID [facility] Last Admin: 04/06/17 17:33 Dose: 0.1 mg Diltiazem HCl (Cardizem Cd) 180 mg PO DAILY [facility] Last Admin: 04/06/17 10:07 Dose: 180 mg Docusate Sodium (Colace) 100 mg PO TID [facility] Last Admin: 04/06/17 17:33 Dose: Not Given Duloxetine HCl (Cymbalta) 30 mg PO DAILY [facility] Last Admin: 04/06/17 10:06 Dose: 30 mg Finasteride (Proscar) 5 mg PO DAILY [facility] Last Admin: 04/06/17 10:06 Dose: 5 mg Furosemide (Lasix) 40 mg PO BID [facility] Last Admin: 04/06/17 17:32 Dose: 40 mg Meropenem 1g/NS 100mL IVPB (Meropenem 1g/Ns 100ml Ivpb) 1 gm in 100 mls @ 100 mls/hr IVPB Q12 [facility] PRN Reason: Protocol Stop: 04/10/17 10:01 Last Admin: 04/06/17 21:54 Dose: 100 mls/hr Colistimethate Sodium 150 mg/ (Sodium Chloride) 100 mls @ 200 mls/hr IV Q12 [facility] Last Admin: 04/06/17 23:18 Dose: 200 mls/hr Insulin Human Lispro (Humalog) 0 units SC ACHS [facility] PRN Reason: Protocol Last Admin: 04/07/17 08:24 Dose: Not Given Levothyroxine Sodium (Synthroid) 75 mcg PO DAILY@0630 [facility] Last Admin: 04/06/17 06:01 Dose: 75 mcg Lidocaine (Lidoderm) 1 ea TD DAILY [facility] Last Admin: 04/06/17 10:04 Dose: 1 ea Lisinopril (Zestril) 5 mg PO DAILY [facility] Last Admin: 04/06/17 10:05 Dose: 5 mg Magnesium Oxide (Mag-Ox) 400 mg PO BID [facility] Last Admin: 04/06/17 17:33 Dose: 400 mg Metoprolol Tartrate (Lopressor) 25 mg PO DAILY [facility] Last Admin: 04/06/17 10:07 Dose: 25 mg Multivitamins (Thera Tab) 1 tab PO DAILY [facility] Last Admin: 04/06/17 10:06 Dose: 1 tab Nystatin (Nystop Topical Powder) 0 gm TOP Q6H PRN PRN Reason: Rash Last Admin: 04/05/17 10:48 Dose: 1 applic Oxycodone HCl (Oxycontin Extended Release Tab) 80 mg PO Q6 [facility] Last Admin: 04/07/17 06:06 Dose: 80 mg Oxycodone/Acetaminophen (Percocet 5/325 Mg Tab) 2 tab PO Q4H PRN PRN Reason: Pain, severe (8-10) Stop: 04/09/17 06:13 Last Admin: 04/07/17 06:08 Dose: 2 tab Pantoprazole Sodium (Protonix Ec Tab) 40 mg PO ACB [facility] Last Admin: 04/07/17 08:24 Dose: 40 mg Warfarin Sodium (Coumadin) 10 mg PO 1800 [facility] Last Admin: 04/06/17 17:32 Dose: 10 mg Warfarin Sodium (Coumadin) 2.5 mg PO 1800 [facility] Last Admin: 04/06/17 17:34 Dose: 2.5 mg Zaleplon (Sonata) 10 mg PO HS [facility] Last Admin: 04/06/17 21:57 Dose: 10 mg Zinc Sulfate (Zinc Sulfate 220 Mg Cap) 220 mg PO DAILY [facility] Last Admin: 04/06/17 10:05 Dose: 220 mg - Labs Labs: 04/07/17 06:59 04/07/17 06:59 PT 19.0 Seconds (9.9-11.8) H 04/07/17 06:59 INR 1.76 (0.93-1.08) H 04/07/17 06:59 - Constitutional Appears: Non-toxic, No Acute Distress - Head Exam Head Exam: NORMAL INSPECTION - ENT Exam ENT Exam: Mucous Membranes Moist - Neck Exam Neck Exam: absent: Lymphadenopathy, Meningismus - Respiratory Exam Respiratory Exam: Decreased Breath Sounds - Cardiovascular Exam Cardiovascular Exam: +S1, +S2 - GI/Abdominal Exam GI & Abdominal Exam: Soft. absent: Tenderness - Extremities Exam Additional comments: left leg with dry dressings in place Assessment and Plan - Assessment and Plan (Free Text) Plan: Assessment skin and skin structure infection with bilateral leg infected ulcers in a patient with recurrent leg infections and venous stasis, now growing MSSA and multidrug resistant Pseudomonas and ESBL E. coli S/P wound vacuum placement for upper thigh wounds history of Skin and skin structure infection of the left lower extremity with Pseudomonas, Enterococcus and MRSA in a patient with recurrent left leg infection Morbid obesity with BMI of 43 DM HTN COPD hyopthyroidism bilateral lower extremity swelling due to venous stasis Osteoarthritis Chronic pain syndrome Plan continue Doxycycline, Merrem and Colistin (day 2) - target 7-10 days of therapy there is an increase in Creatinine from 1.2 to 1.4 - will repeat this afternoon and if it continues to increase, will hold Colistin will follow clinically
[2017-04-07 16:06] LABS: ALB/GLOB RATIO 0.9 (1.1-1.8); ALKALINE PHOSPHATASE 167 U/L (38-133); ALT/SGPT 26 U/L (7-56); AST/SGOT 33 U/L (15-59); BILIRUBIN,TOTAL 0.4 mg/dL (0.2-1.3); BLOOD UREA NITROGEN 43 mg/dL (7-21); CALCIUM 9.2 mg/dL (8.4-10.5); CARBON DIOXIDE 32 mmol/L (21-33); CHLORIDE 93 mmol/L (98-107); GFR AFRICAN-AMERICAN > 60; GLUCOSE,RANDOM 116 mg/dL (70-110); POTASSIUM 4.9 mmol/L (3.6-5.0); SODIUM 133 mmol/L (132-148)
--- NOTE | 2017-04-07 16:45 | CP.PCM.PN ---
<Alec Bateman - Last Filed: 04/07/17 16:42> Subjective - Date & Time of Evaluation Date of Evaluation: 04/07/17 Time of Evaluation: 16:00 - Subjective Subjective: 56 y/o male seen at bedside concerning prognosis of bilateral venous stasis ulcerations of the lower extremities. Patient grades current leg pain a 3/10 to left heel when touched of when pressure focused on heel. He denies n/f/v/c/d/ sob. Objective - Vital Signs/Intake and Output Vital Signs (last 24 hours): Temp Pulse Resp BP Pulse Ox 97.9 F 63 20 124/63 94 L 04/07/17 07:30 04/07/17 12:07 04/07/17 07:30 04/07/17 12:07 04/07/17 07:30 Intake and Output: 04/07/17 04/07/17 06:59 18:59 Intake Total 980 600 Output Total 2000 Balance -1020 600 - Medications Medications: Current Medications Acetaminophen (Tylenol 325mg Tab) 650 mg PO Q6H PRN PRN Reason: Fever >100.4 F Clonidine HCl (Catapres) 0.1 mg PO BID [facility] Last Admin: 04/07/17 09:34 Dose: Not Given Diltiazem HCl (Cardizem Cd) 180 mg PO DAILY [facility] Last Admin: 04/07/17 09:33 Dose: 180 mg Docusate Sodium (Colace) 100 mg PO TID [facility] Last Admin: 04/07/17 13:50 Dose: Not Given Duloxetine HCl (Cymbalta) 40 mg PO DAILY [facility] Finasteride (Proscar) 5 mg PO DAILY [facility] Last Admin: 04/07/17 12:03 Dose: 5 mg Furosemide (Lasix) 40 mg PO BID [facility] Last Admin: 04/07/17 09:33 Dose: 40 mg Meropenem 1g/NS 100mL IVPB (Meropenem 1g/Ns 100ml Ivpb) 1 gm in 100 mls @ 100 mls/hr IVPB Q12 [facility] PRN Reason: Protocol Stop: 04/10/17 10:01 Last Admin: 04/07/17 09:36 Dose: 100 mls/hr Colistimethate Sodium 150 mg/ (Sodium Chloride) 100 mls @ 200 mls/hr IV Q12 [facility] Last Admin: 04/07/17 12:01 Dose: 200 mls/hr Insulin Human Lispro (Humalog) 0 units SC ACHS [facility] PRN Reason: Protocol Last Admin: 04/07/17 12:13 Dose: Not Given Levothyroxine Sodium (Synthroid) 75 mcg PO DAILY@0630 [facility] Last Admin: 04/06/17 06:01 Dose: 75 mcg Lidocaine (Lidoderm) 1 ea TD DAILY [facility] Last Admin: 04/07/17 09:35 Dose: 1 ea Lisinopril (Zestril) 5 mg PO DAILY [facility] Last Admin: 04/07/17 12:03 Dose: 5 mg Magnesium Oxide (Mag-Ox) 400 mg PO BID [facility] Last Admin: 04/07/17 09:34 Dose: 400 mg Metoprolol Tartrate (Lopressor) 25 mg PO DAILY [facility] Last Admin: 04/07/17 12:07 Dose: 25 mg Multivitamins (Thera Tab) 1 tab PO DAILY [facility] Last Admin: 04/07/17 09:34 Dose: 1 tab Nystatin (Nystop Topical Powder) 0 gm TOP Q6H PRN PRN Reason: Rash Last Admin: 04/05/17 10:48 Dose: 1 applic Oxycodone HCl (Oxycontin Extended Release Tab) 80 mg PO Q6 [facility] Last Admin: 04/07/17 12:02 Dose: 80 mg Oxycodone/Acetaminophen (Percocet 5/325 Mg Tab) 2 tab PO Q4H PRN PRN Reason: Pain, severe (8-10) Stop: 04/09/17 06:13 Last Admin: 04/07/17 12:02 Dose: 2 tab Pantoprazole Sodium (Protonix Ec Tab) 40 mg PO ACB [facility] Last Admin: 04/07/17 08:24 Dose: 40 mg Warfarin Sodium (Coumadin) 10 mg PO 1800 [facility] Last Admin: 04/06/17 17:32 Dose: 10 mg Warfarin Sodium (Coumadin) 2.5 mg PO 1800 [facility] PRN Reason: Protocol Zaleplon (Sonata) 10 mg PO HS [facility] Last Admin: 04/06/17 21:57 Dose: 10 mg Zinc Sulfate (Zinc Sulfate 220 Mg Cap) 220 mg PO DAILY [facility] Last Admin: 04/07/17 09:37 Dose: 220 mg - Labs Labs: 04/07/17 06:59 04/07/17 15:20 PT 19.0 Seconds (9.9-11.8) H 04/07/17 06:59 INR 1.76 (0.93-1.08) H 04/07/17 06:59 - Constitutional Appears: Well, Non-toxic, No Acute Distress - Extremities Exam Additional comments: Vasc: Non-palpable pedal pulses due to edema b/l, TG warm to warm, CFT < 3 sec to all digits, +1 pitting edema Neuro: grossly diminished Derm: +1 pitting edema to legs bilateral, localized erythema to mid-calf bilateral. Left posterior distal 1/2 of leg superficial ulceration measuring 13 x 7.5cm with heavy sanguinous drainage noted. Absent undermining on a granular base with moderate jamila-wound macerations, and active serous drainage. Anterior leg stable scabs noted. Right distal medial leg, superficial open lesion measuring 1x11 cm on the on a granular base, no purulence, minor serous drainage, no active bleeding, no undermining, no tracking, no probe to bone MUSC: pain on palpation of posterior and medial legs b/l - Neurological Exam Neurological Exam: Alert, Awake, Oriented x3 - Psychiatric Exam Psychiatric exam: Normal Affect, Normal Mood Assessment and Plan - Assessment and Plan (Free Text) Assessment: 56 y/o male cellulitis and bilateral superficial venous stasis ulcerations Plan: patient evaluated and seen at bedside. Discussed with attending Dr. Zavaleta. Labs and vitals reviewed; afebrile, absent leukocytosis continue IV abx per ID cleansed legs with saline. Right leg dressed with skin protectant and DSD. Left leg dressing changed to Maxorb, ABD, kerlix, and YAYO Patient encouraged to begin ambulating as tolerated. Left leg wound culture results shoe. Pseudomonas aeriginosa, E. coli, & staph aureus. IV medications per ID: noted treatment regimen change to Meropenem and Colistimethate podiatry will continue to monitor while patient remains in house <Parish Zavaleta - Last Filed: 04/10/17 18:20> Objective - Vital Signs/Intake and Output Vital Signs (last 24 hours): Temp Pulse Resp BP Pulse Ox 97.8 F 60 18 116/80 98 04/10/17 16:00 04/10/17 18:03 04/10/17 16:00 04/10/17 18:03 04/10/17 16:00 Intake and Output: 04/10/17 04/10/17 06:59 18:59 Intake Total 1920 760 Output Total 2300 2400 Balance -380 -1640 - Medications Medications: Current Medications Acetaminophen (Tylenol 325mg Tab) 650 mg PO Q6H PRN PRN Reason: Fever >100.4 F Clonidine HCl (Catapres) 0.1 mg PO BID [facility] Last Admin: 04/10/17 18:03 Dose: 0.1 mg Diltiazem HCl (Cardizem Cd) 180 mg PO DAILY [facility] Last Admin: 04/10/17 11:25 Dose: 180 mg Docusate Sodium (Colace) 100 mg PO TID [facility] Last Admin: 04/10/17 18:04 Dose: Not Given Duloxetine HCl (Cymbalta) 40 mg PO DAILY [facility] Last Admin: 04/10/17 11:21 Dose: 40 mg Finasteride (Proscar) 5 mg PO DAILY [facility] Last Admin: 04/10/17 11:21 Dose: 5 mg Furosemide (Lasix) 40 mg PO BID [facility] Last Admin: 04/10/17 18:02 Dose: 40 mg Colistimethate Sodium 150 mg/ (Sodium Chloride) 100 mls @ 200 mls/hr IV Q12 [facility] Last Admin: 04/10/17 11:19 Dose: 200 mls/hr Insulin Human Lispro (Humalog) 0 units SC ACHS [facility] PRN Reason: Protocol Last Admin: 04/10/17 16:57 Dose: Not Given Levothyroxine Sodium (Synthroid) 75 mcg PO DAILY@0630 [facility] Last Admin: 04/10/17 08:10 Dose: 75 mcg Lidocaine (Lidoderm) 1 ea TD DAILY [facility] Last Admin: 04/10/17 11:24 Dose: 1 ea Lisinopril (Zestril) 5 mg PO DAILY [facility] Last Admin: 04/10/17 11:23 Dose: 5 mg Magnesium Oxide (Mag-Ox) 400 mg PO BID [facility] Last Admin: 04/10/17 18:02 Dose: 400 mg Metoprolol Tartrate (Lopressor) 25 mg PO DAILY [facility] Last Admin: 04/10/17 11:19 Dose: 25 mg Multivitamins (Thera Tab) 1 tab PO DAILY [facility] Last Admin: 04/10/17 11:19 Dose: 1 tab Nystatin (Nystop Topical Powder) 0 gm TOP Q6H PRN PRN Reason: Rash Last Admin: 04/05/17 10:48 Dose: 1 applic Oxycodone HCl (Oxycontin Extended Release Tab) 80 mg PO Q6 [facility] Last Admin: 04/10/17 18:03 Dose: 80 mg Oxycodone/Acetaminophen (Percocet 5/325 Mg Tab) 2 tab PO Q4H PRN PRN Reason: Pain, severe (8-10) Stop: 04/12/17 12:00 Last Admin: 04/10/17 18:04 Dose: 2 tab Pantoprazole Sodium (Protonix Ec Tab) 40 mg PO ACB [facility] Last Admin: 04/10/17 08:30 Dose: 40 mg Warfarin Sodium (Coumadin) 5 mg PO 1800 [facility] PRN Reason: Protocol Last Admin: 04/10/17 18:05 Dose: 5 mg Warfarin Sodium (Coumadin) 7.5 mg PO 1800 [facility] PRN Reason: Protocol Zaleplon (Sonata) 10 mg PO HS [facility] Last Admin: 04/09/17 22:06 Dose: 10 mg Zinc Sulfate (Zinc Sulfate 220 Mg Cap) 220 mg PO DAILY [facility] Last Admin: 04/10/17 11:23 Dose: 220 mg - Labs Labs: 04/07/17 06:59 04/10/17 07:30 PT 28.2 Seconds (9.9-11.8) H 04/10/17 07:30 INR 2.61 (0.93-1.08) H 04/10/17 07:30 Attending/Attestation - Attestation I have personally seen and examined this patient.: Yes I have fully participated in the care of the patient.: Yes I have reviewed all pertinent clinical information, including history, physical exam and plan: Yes
--- NOTE | 2017-04-07 17:32 | PN ---
DATE: 04/07/2017 The patient was followed up today. The patient's mood is improving. The patient is willing to incre ase the dose of Cymbalta to 40 mg today. The patient said that his sleep is improving on Sonata. Th e patient reported that he has future plans and overall, he reports to feel better. Transient feelin g of hopelessness, majority of the time this is due to general medical condition. VITAL SIGNS: Stable. MEDICATIONS: Reviewed. LABORATORY DATA: Reviewed. Most recent was from today. MENTAL STATUS EXAMINATION: The patient presented to be alert and oriented, pleasant, cooperative, ve ry appreciative. Intermittent eye contact. Speech was normal rate, tone, quality, and quantity. Af fect is more reactive, mood congruent. Mood described as "I feel better." Thought process was coher ent and goal directed. Thought content: The patient denied visual, auditory, or tactile hallucinati ons. Denies paranoid ideation. The patient denied thoughts of harming himself or others, denied int ent or plan. Insight and judgment improving. Impulses are well controlled. IMPRESSION: The patient had mood disorder due to general medical condition. Rule out major depressi ve disorder. The patient has multiple medical issues. Please see medical team note for more detaile d information. The patient is still on contact isolation for his lower extremity cellulitis. Case w as discussed with Dr. Spangler today in details. PLAN: Continue current management. The patient will be seen by this medical writer every other day. Cymbal ta will be increased to 40 mg today. We will continue for Sonata 10 mg at the nighttime. We will fo llow up and advise accordingly. Thank you very much for letting me participate in the care of your patient. Tania Gramajo MD cc: [phone] TT: 04/07/2017 17:32:36 Confirmation # [id number] Dictation # [id number]
[2017-04-08] MEDS: oxyCODONE 80 mg ER Tab (oxyCONTIN) PO SCH ×4 (00:08→18:07)
[2017-04-08] MEDS: Oxycodone/Acetaminophen 5/325 mg Tab PO PRN ×4 (00:09→18:07)
[2017-04-08] MEDS: Levothyroxine 75 MCG TAB PO SCH (06:03)
[2017-04-08 08:09] LABS: INR 2.23 (0.93-1.08)
[2017-04-08] MEDS: Insulin Lispro 1 UNITS/0.01 ML SC SCH ×4 (08:26→21:26)
[2017-04-08] MEDS: Pantoprazole 40 mg EC Tab PO SCH (08:26)
[2017-04-08] MEDS: diltiaZEM 180 mg/24 Hours CD Cap PO SCH ×2 (10:05)
[2017-04-08] MEDS: Meropenem 1g/NS 100mL IVPB 1 GM/100 ML PIGGYBACK IVPB SCH ×2 (10:06→23:26)
[2017-04-08] MEDS: Magnesium Oxide 400 mg Tab UD PO SCH ×2 (10:06→18:07)
[2017-04-08] MEDS: Multivitamin Therapeutic Tab PO SCH (10:06)
[2017-04-08] MEDS: Lidocaine 5% Patch TD SCH (10:07)
[2017-04-08 11:13] LABS: BLOOD UREA NITROGEN 42 mg/dL (7-21); CALCIUM 9.6 mg/dL (8.4-10.5); CARBON DIOXIDE 32 mmol/L (21-33); CHLORIDE 94 mmol/L (98-107); GFR AFRICAN-AMERICAN > 60; GLUCOSE,RANDOM 84 mg/dL (70-110); SODIUM 135 mmol/L (132-148)
--- NOTE | 2017-04-08 14:12 | PN ---
DATE: 04/07/2017 Comfortable. No new complaint. Getting IV antibiotic. Lying in bed. The patient goes to the [facility]. He has no problem with constipation. Seems stable. PHYSICAL EXAMINATION: VITAL SIGNS: Temperature is 97.9, heart rate is 74, blood pressure 124/64, respirations 20, saturati on 94%. HEAD AND NECK: Normal. No JVD, no thyromegaly. CHEST: Clear, good air entry. CARDIAC: First sound, second sound normal. ABDOMEN: Obese, nontender. EXTREMITIES: Bilateral leg edema and both legs are wrapped with gauze. NEUROLOGIC: Normal. He moves all extremities. He is alert, awake, oriented x 3. LABORATORY DATA: White count is normal at 6.9, hemoglobin 11.9, hematocrit 36.9, platelets 147. Gabriela estrella: Sodium 135, potassium 5, chloride 94, bicarb 32, BUN 42, creatinine 1.4, and blood sugar 84. IMPRESSION AND PLAN: 1. Bilateral leg cellulitis, left more than right. The patient does have chronic leg infection with recurrent cellulitis and recurrent leg ulcerations. The patient will need continuous local wound ca re as outpatient and, because of the recurrent admission, I advised the patient senior living placemen t for him because of his continuous admissions to the hospital and rehabs. However, he does not want to give up his disability check because he cannot get Medicaid. I did discuss with him in detail ab out that, but he inclined towards not to go to a senior living. Finally, I discussed with him several times about bariatric surgery to make him clinically better. It seems like he agrees; however, will see as outpatient. The patient does have a history of noncompliance with his Coumadin, and will con tinue follow up with him. 2. Morbid obesity, obstructive sleep apnea, chronic obstructive pulmonary disease, right-sided heart failure, hypothyroidism, diabetes type 2, hypertension, chronic skin infection, mycosis, hypothyroid ism, generalized weakness, gait disorder, chronic back pain, neck pain, chronic knee pain. Plan is t o continue current therapy. Follow up clinically. Continue IV antibiotic as per ID recommendation. The patient has a positive left leg Pseudomonas aeruginosa, Escherichia coli, Staphylococcus aureus; however, his blood cultures were negative. Continue current therapy. Yvon Gonzalez MD cc: [phone] TT: 04/08/2017 14:11:34 Confirmation # [id number] Dictation # [id number] mn
--- NOTE | 2017-04-08 14:15 | CP.PCM.PN ---
Subjective - Date & Time of Evaluation Date of Evaluation: 04/08/17 Time of Evaluation: 15:40 - Subjective Subjective: 56 y/o male seen at bedside concerning prognosis of bilateral venous stasis ulcerations of the lower extremities. Patient grades current leg pain a 3/10 to left heel when touched of when pressure focused on heel. He denies n/f/v/c/d/ sob. Objective - Vital Signs/Intake and Output Vital Signs (last 24 hours): Temp Pulse Resp BP Pulse Ox 97.7 F 58 L 20 131/68 96 04/08/17 08:03 04/08/17 08:03 04/08/17 08:03 04/08/17 10:06 04/08/17 08:03 Intake and Output: 04/08/17 04/08/17 06:59 18:59 Intake Total 1680 Output Total 3300 Balance -1620 - Medications Medications: Current Medications Acetaminophen (Tylenol 325mg Tab) 650 mg PO Q6H PRN PRN Reason: Fever >100.4 F Clonidine HCl (Catapres) 0.1 mg PO BID [facility] Last Admin: 04/08/17 10:05 Dose: 0.1 mg Diltiazem HCl (Cardizem Cd) 180 mg PO DAILY [facility] Last Admin: 04/08/17 10:05 Dose: 180 mg Docusate Sodium (Colace) 100 mg PO TID [facility] Last Admin: 04/08/17 14:07 Dose: Not Given Duloxetine HCl (Cymbalta) 40 mg PO DAILY [facility] Last Admin: 04/08/17 10:06 Dose: 40 mg Finasteride (Proscar) 5 mg PO DAILY [facility] Last Admin: 04/08/17 10:09 Dose: 5 mg Furosemide (Lasix) 40 mg PO BID [facility] Last Admin: 04/08/17 10:06 Dose: 40 mg Meropenem 1g/NS 100mL IVPB (Meropenem 1g/Ns 100ml Ivpb) 1 gm in 100 mls @ 100 mls/hr IVPB Q12 [facility] PRN Reason: Protocol Stop: 04/10/17 10:01 Last Admin: 04/08/17 10:06 Dose: 100 mls/hr Colistimethate Sodium 150 mg/ (Sodium Chloride) 100 mls @ 200 mls/hr IV Q12 [facility] Last Admin: 04/08/17 10:53 Dose: 200 mls/hr Insulin Human Lispro (Humalog) 0 units SC ACHS [facility] PRN Reason: Protocol Last Admin: 04/08/17 12:01 Dose: Not Given Levothyroxine Sodium (Synthroid) 75 mcg PO DAILY@0630 [facility] Last Admin: 04/08/17 06:03 Dose: 75 mcg Lidocaine (Lidoderm) 1 ea TD DAILY [facility] Last Admin: 04/08/17 10:07 Dose: 1 ea Lisinopril (Zestril) 5 mg PO DAILY [facility] Last Admin: 04/08/17 10:06 Dose: 5 mg Magnesium Oxide (Mag-Ox) 400 mg PO BID [facility] Last Admin: 04/08/17 10:06 Dose: 400 mg Metoprolol Tartrate (Lopressor) 25 mg PO DAILY [facility] Last Admin: 04/08/17 10:07 Dose: 25 mg Multivitamins (Thera Tab) 1 tab PO DAILY [facility] Last Admin: 04/08/17 10:06 Dose: 1 tab Nystatin (Nystop Topical Powder) 0 gm TOP Q6H PRN PRN Reason: Rash Last Admin: 04/05/17 10:48 Dose: 1 applic Oxycodone HCl (Oxycontin Extended Release Tab) 80 mg PO Q6 [facility] Last Admin: 04/08/17 12:06 Dose: 80 mg Oxycodone/Acetaminophen (Percocet 5/325 Mg Tab) 2 tab PO Q4H PRN PRN Reason: Pain, severe (8-10) Stop: 04/09/17 06:13 Last Admin: 04/08/17 12:06 Dose: 2 tab Pantoprazole Sodium (Protonix Ec Tab) 40 mg PO ACB [facility] Last Admin: 04/08/17 08:26 Dose: 40 mg Warfarin Sodium (Coumadin) 7.5 mg PO 1800 [facility] PRN Reason: Protocol Stop: 04/09/17 05:00 Warfarin Sodium (Coumadin) 10 mg PO 1800 [facility] Zaleplon (Sonata) 10 mg PO HS [facility] Last Admin: 04/07/17 22:00 Dose: 10 mg Zinc Sulfate (Zinc Sulfate 220 Mg Cap) 220 mg PO DAILY [facility] Last Admin: 04/08/17 10:06 Dose: 220 mg - Labs Labs: 04/07/17 06:59 04/08/17 10:47 PT 24.1 Seconds (9.9-11.8) H 04/08/17 07:00 INR 2.23 (0.93-1.08) H 04/08/17 07:00 - Constitutional Appears: Well, Non-toxic, No Acute Distress - Extremities Exam Additional comments: Vasc: Non-palpable pedal pulses due to edema b/l, TG warm to warm, CFT < 3 sec to all digits, +1 pitting edema Neuro: grossly diminished Derm: +1 pitting edema to legs bilateral, localized erythema to mid-calf bilateral. Left posterior distal 1/2 of leg superficial ulceration measuring 13 x 7.5cm with heavy sanguinous drainage noted. Absent undermining on a granular base with moderate jamila-wound macerations, and active serous drainage. Anterior leg stable scabs noted. Right distal medial leg, superficial open lesion measuring 1x11 cm on the on a granular base, no purulence, minor serous drainage, no active bleeding, no undermining, no tracking, no probe to bone MUSC: pain on palpation of posterior and medial legs b/l - Neurological Exam Neurological Exam: Alert, Awake, Oriented x3 - Psychiatric Exam Psychiatric exam: Normal Affect, Normal Mood Assessment and Plan - Assessment and Plan (Free Text) Assessment: 56 y/o male cellulitis and bilateral superficial venous stasis ulcerations Plan: patient evaluated and seen at bedside with attending, Dr. Daniels, present. Labs and vitals reviewed; afebrile, absent leukocytosis continue IV abx per ID cleansed legs with saline. Right leg dressed with skin protectant and DSD. Left leg dressing changed to Maxorb, ABD, kerlix, and YAYO Patient encouraged to ambulating as tolerated. IV medications per ID: noted treatment regimen change to Meropenem and Colistimethate podiatry will continue to monitor while patient remains in house
--- NOTE | 2017-04-08 14:35 | PN ---
DATE: 04/06/2017 The patient seems comfortable, no distress, getting IV antibiotic. PHYSICAL EXAMINATION: VITAL SIGNS: Temperature 98.2, heart rate 74, blood pressure 122/76, respirations 20, saturation 96% on room air. HEAD AND NECK: Normal. No JVD, no thyromegaly. CHEST: Clear, good entry. CARDIAC: First sound, second sound normal. ABDOMEN: Morbidly obese. EXTREMITIES: Bilateral leg cellulitis. Both legs are wrapped with gauze. NEUROLOGIC: The patient is normal. LABORATORY STUDIES: Blood sugar is 94. IMPRESSION AND PLAN: 1. Bilateral leg cellulitis. Continue IV antibiotic. The patient seems stable. He will need 7 mor e days of antibiotics. 2. Deep venous thrombosis, history of pulmonary embolism. The patient received 15 mg Coumadin. His INR is still low 1.51. We will increase his Coumadin again to 15 mg and keep monitoring his PT/INR. 3. Chronic obstructive pulmonary disease, obstructive sleep apnea. Continue inhaled bronchodilators . Continue BiPAP machine at night. Follow up with Dr. Santoyo. 4. The patient had morbid obesity which is a main and major problem to him. The patient advised to go for bypass surgery or sleeve surgery. Will evaluate him with the bariatric surgeon. The patient will definitely benefit from bariatric surgery. 5. Hypertension, stable. Continue Zestril. Continue metoprolol 25 mg. 6. Hypothyroidism, insomnia, chronic back pain, groin infection with fungal, history of congestive h eart failure, right-sided heart failure and diabetes type 2. Plan: Continue current medications. CURRENT MEDICATION: Diltiazem 180 mg p.o. daily, Catapres 0.1 mg b.i.d., Colace 100 b.i.d., Coumadin he is getting 15 mg, Cymbalta 40 mg p.o. daily, Humalog coverage, Lasix 40 b.i.d., Lidoderm patch, L opressor 25, mag oxide 400, meropenem IV every 12, nystatin powder, oxycodone, OxyContin, Proscar, Pr otonix, Sonata for sleep, Synthroid 75 mcg per day, Tylenol, Zestril 5 mg and zinc sulfate 220 mg cap kal. We will continue current therapy. The patient may benefit from rehab and physical therapy; however, the patient is admitted several times to rehab and he will go home after the IV therapy and he would be doing outpatient physical therapy. Continue current therapy. Yvon Gonzalez MD cc: [phone] TT: 04/08/2017 14:34:36 Confirmation # [id number] Dictation # [id number] tn
--- NOTE | 2017-04-08 19:13 | CP.PCM.PN ---
Subjective - Date & Time of Evaluation Date of Evaluation: 04/08/17 Time of Evaluation: 12:05 - Subjective Subjective: Comfortable, less pain in the legs but still with draining, no fevers overnight. Objective - Vital Signs/Intake and Output Vital Signs (last 24 hours): Temp Pulse Resp BP Pulse Ox 98.3 F 71 18 114/71 98 04/07/17 16:00 04/07/17 16:00 04/07/17 16:00 04/07/17 17:57 04/07/17 16:00 Intake and Output: 04/07/17 04/08/17 18:59 06:59 Intake Total 600 1680 Output Total 3300 Balance 600 -1620 - Medications Medications: Current Medications Acetaminophen (Tylenol 325mg Tab) 650 mg PO Q6H PRN PRN Reason: Fever >100.4 F Clonidine HCl (Catapres) 0.1 mg PO BID [facility] Last Admin: 04/07/17 17:57 Dose: Not Given Diltiazem HCl (Cardizem Cd) 180 mg PO DAILY [facility] Last Admin: 04/07/17 09:33 Dose: 180 mg Docusate Sodium (Colace) 100 mg PO TID [facility] Last Admin: 04/07/17 17:55 Dose: Not Given Duloxetine HCl (Cymbalta) 40 mg PO DAILY [facility] Finasteride (Proscar) 5 mg PO DAILY [facility] Last Admin: 04/07/17 12:03 Dose: 5 mg Furosemide (Lasix) 40 mg PO BID [facility] Last Admin: 04/07/17 17:58 Dose: 40 mg Meropenem 1g/NS 100mL IVPB (Meropenem 1g/Ns 100ml Ivpb) 1 gm in 100 mls @ 100 mls/hr IVPB Q12 [facility] PRN Reason: Protocol Stop: 04/10/17 10:01 Last Admin: 04/07/17 21:59 Dose: 100 mls/hr Colistimethate Sodium 150 mg/ (Sodium Chloride) 100 mls @ 200 mls/hr IV Q12 [facility] Last Admin: 04/08/17 00:09 Dose: 200 mls/hr Insulin Human Lispro (Humalog) 0 units SC ACHS [facility] PRN Reason: Protocol Last Admin: 04/07/17 22:00 Dose: Not Given Levothyroxine Sodium (Synthroid) 75 mcg PO DAILY@0630 [facility] Last Admin: 04/08/17 06:03 Dose: 75 mcg Lidocaine (Lidoderm) 1 ea TD DAILY [facility] Last Admin: 04/07/17 09:35 Dose: 1 ea Lisinopril (Zestril) 5 mg PO DAILY [facility] Last Admin: 04/07/17 12:03 Dose: 5 mg Magnesium Oxide (Mag-Ox) 400 mg PO BID [facility] Last Admin: 04/07/17 17:56 Dose: 400 mg Metoprolol Tartrate (Lopressor) 25 mg PO DAILY [facility] Last Admin: 04/07/17 12:07 Dose: 25 mg Multivitamins (Thera Tab) 1 tab PO DAILY [facility] Last Admin: 04/07/17 09:34 Dose: 1 tab Nystatin (Nystop Topical Powder) 0 gm TOP Q6H PRN PRN Reason: Rash Last Admin: 04/05/17 10:48 Dose: 1 applic Oxycodone HCl (Oxycontin Extended Release Tab) 80 mg PO Q6 [facility] Last Admin: 04/08/17 06:04 Dose: 80 mg Oxycodone/Acetaminophen (Percocet 5/325 Mg Tab) 2 tab PO Q4H PRN PRN Reason: Pain, severe (8-10) Stop: 04/09/17 06:13 Last Admin: 04/08/17 06:03 Dose: 2 tab Pantoprazole Sodium (Protonix Ec Tab) 40 mg PO ACB [facility] Last Admin: 04/07/17 08:24 Dose: 40 mg Warfarin Sodium (Coumadin) 10 mg PO 1800 [facility] Last Admin: 04/07/17 17:57 Dose: 10 mg Warfarin Sodium (Coumadin) 2.5 mg PO 1800 [facility] PRN Reason: Protocol Last Admin: 04/07/17 17:56 Dose: 2.5 mg Zaleplon (Sonata) 10 mg PO HS [facility] Last Admin: 04/07/17 22:00 Dose: 10 mg Zinc Sulfate (Zinc Sulfate 220 Mg Cap) 220 mg PO DAILY [facility] Last Admin: 04/07/17 09:37 Dose: 220 mg - Labs Labs: 04/07/17 06:59 04/07/17 15:20 PT 19.0 Seconds (9.9-11.8) H 04/07/17 06:59 INR 1.76 (0.93-1.08) H 06/13/17 06:59 - Constitutional Appears: Non-toxic, No Acute Distress - Head Exam Head Exam: NORMAL INSPECTION - ENT Exam ENT Exam: Mucous Membranes Moist - Neck Exam Neck Exam: absent: Lymphadenopathy, Meningismus - Respiratory Exam Respiratory Exam: Decreased Breath Sounds - Cardiovascular Exam Cardiovascular Exam: +S1, +S2 - GI/Abdominal Exam GI & Abdominal Exam: Soft. absent: Tenderness - Extremities Exam Additional comments: both legs with dressings in place Assessment and Plan - Assessment and Plan (Free Text) Plan: Assessment skin and skin structure infection with bilateral leg infected ulcers in a patient with recurrent leg infections and venous stasis, now growing MSSA and multidrug resistant Pseudomonas and ESBL E. coli S/P wound vacuum placement for upper thigh wounds history of Skin and skin structure infection of the left lower extremity with Pseudomonas, Enterococcus and MRSA in a patient with recurrent left leg infection Morbid obesity with BMI of 43 DM HTN COPD hyopthyroidism bilateral lower extremity swelling due to venous stasis Osteoarthritis Chronic pain syndrome Plan continue Doxycycline, Merrem and Colistin (day 3) - target 7-10 days of therapy there is an increase in Creatinine from 1.2 to 1.4 and will continue to monitor will continue to follow clinically
[2017-04-09] MEDS: Oxycodone/Acetaminophen 5/325 mg Tab PO PRN ×4 (00:18→18:27)
[2017-04-09] MEDS: oxyCODONE 80 mg ER Tab (oxyCONTIN) PO SCH ×4 (00:18→18:26)
[2017-04-09] MEDS: Pantoprazole 40 mg EC Tab PO SCH (07:56)
[2017-04-09] MEDS: Insulin Lispro 1 UNITS/0.01 ML SC SCH ×3 (07:57→17:27)
[2017-04-09] MEDS: Levothyroxine 75 MCG TAB PO SCH (08:00)
[2017-04-09 08:15] LABS: INR 2.61 (0.93-1.08)
[2017-04-09 08:22] LABS: ALB/GLOB RATIO 0.9 (1.1-1.8); ALKALINE PHOSPHATASE 178 U/L (38-133); ALT/SGPT 34 U/L (7-56); AST/SGOT 33 U/L (15-59); BILIRUBIN,TOTAL 0.4 mg/dL (0.2-1.3); BLOOD UREA NITROGEN 39 mg/dL (7-21); CALCIUM 9.6 mg/dL (8.4-10.5); CARBON DIOXIDE 33 mmol/L (21-33); CHLORIDE 93 mmol/L (98-107); GFR AFRICAN-AMERICAN > 60; GLUCOSE,RANDOM 95 mg/dL (70-110); MAGNESIUM 1.9 mg/dL (1.7-2.2); POTASSIUM 4.9 mmol/L (3.6-5.0); SODIUM 134 mmol/L (132-148); TOTAL PROTEIN 8.3 g/dL (5.8-8.3)
--- NOTE | 2017-04-09 09:01 | PN ---
DATE: 04/08/2017 A 57-year-old male currently on IV antibiotics for cellulitis of lower extremity. He has no new comp laint. No chest pain, no shortness of breath. PHYSICAL EXAMINATION: VITAL SIGNS: His temperature is 98.6, heart rate 64, blood pressure 128/75, respiratory rate 20, sat uration 100%. HEAD AND NECK: Normal. No JVD, no thyromegaly. CHEST: Clear, good air entry. CARDIAC: First sound, second sound normal. ABDOMEN: Obese, nontender. EXTREMITIES: Both of them are wrapped. Leg edema better than before with also left knee deformity/v arus deformity. NEUROLOGIC: Normal. He moves all extremities. Alert, awake, oriented x 3. IMPRESSION AND PLAN: 1. Bilateral leg cellulitis. Continue local wound care. Continue IV antibiotics. The patient curr ently getting meropenem and seems doing well with that. Will follow recommendation by ID consult. 2. Chronic deep venous thrombosis, history of Henna filter. Continue Coumadin. PT/INR is ther apeutic, between 2 and 2.5, so will continue Coumadin on daily basis. 3. Chronic obstructive pulmonary disease, congestive heart failure, right-sided heart failure, obstr uctive sleep apnea. Continue inhaled bronchodilators, continue current medicine. 4. Chronic neck pain, chronic back pain. Continue oxycodone and OxyContin. 5. Hypothyroidism and diabetes, stable. Continue levothyroxine and insulin coverage. Seems doing w ell. Will follow up clinically. Yvon Gonzalez MD cc: [phone] TT: 04/09/2017 09:01:18 Confirmation # [id number] Dictation # [id number] mn
[2017-04-09] MEDS: Meropenem 1g/NS 100mL IVPB 1 GM/100 ML PIGGYBACK IVPB SCH ×2 (10:26→21:24)
[2017-04-09] MEDS: Magnesium Oxide 400 mg Tab UD PO SCH ×2 (10:31→17:27)
[2017-04-09] MEDS: Lidocaine 5% Patch TD SCH (10:32)
[2017-04-09] MEDS: diltiaZEM 180 mg/24 Hours CD Cap PO SCH (10:33)
[2017-04-09] MEDS: Multivitamin Therapeutic Tab PO SCH (10:51)
--- NOTE | 2017-04-09 14:29 | CP.PCM.PN ---
Subjective - Date & Time of Evaluation Date of Evaluation: 04/09/17 Time of Evaluation: 08:50 - Subjective Subjective: 56 y/o male seen at bedside concerning prognosis of left legl venous stasis ulcerations. Patient denies left heel pain at this time. He denies n/f/v/c/d/ sob. Objective - Vital Signs/Intake and Output Vital Signs (last 24 hours): Temp Pulse Resp BP Pulse Ox 98.3 F 67 22 88/53 L 95 04/09/17 08:49 04/09/17 10:52 04/09/17 08:49 04/09/17 10:52 04/09/17 08:49 Intake and Output: 04/09/17 04/09/17 06:59 18:59 Intake Total 1440 Output Total 3600 Balance -2160 - Medications Medications: Current Medications Acetaminophen (Tylenol 325mg Tab) 650 mg PO Q6H PRN PRN Reason: Fever >100.4 F Clonidine HCl (Catapres) 0.1 mg PO BID [facility] Last Admin: 04/09/17 10:33 Dose: Not Given Diltiazem HCl (Cardizem Cd) 180 mg PO DAILY [facility] Last Admin: 04/09/17 10:33 Dose: Not Given Docusate Sodium (Colace) 100 mg PO TID [facility] Last Admin: 04/09/17 13:04 Dose: Not Given Duloxetine HCl (Cymbalta) 40 mg PO DAILY [facility] Last Admin: 04/09/17 10:30 Dose: 40 mg Finasteride (Proscar) 5 mg PO DAILY [facility] Last Admin: 04/09/17 10:31 Dose: 5 mg Furosemide (Lasix) 40 mg PO BID [facility] Last Admin: 04/09/17 10:31 Dose: Not Given Meropenem 1g/NS 100mL IVPB (Meropenem 1g/Ns 100ml Ivpb) 1 gm in 100 mls @ 100 mls/hr IVPB Q12 [facility] PRN Reason: Protocol Stop: 04/10/17 10:01 Last Admin: 04/09/17 10:26 Dose: 100 mls/hr Colistimethate Sodium 150 mg/ (Sodium Chloride) 100 mls @ 200 mls/hr IV Q12 [facility] Last Admin: 04/09/17 10:26 Dose: 200 mls/hr Insulin Human Lispro (Humalog) 0 units SC ACHS [facility] PRN Reason: Protocol Last Admin: 04/09/17 12:35 Dose: Not Given Levothyroxine Sodium (Synthroid) 75 mcg PO DAILY@0630 [facility] Last Admin: 04/09/17 08:00 Dose: 75 mcg Lidocaine (Lidoderm) 1 ea TD DAILY [facility] Last Admin: 04/09/17 10:32 Dose: 1 ea Lisinopril (Zestril) 5 mg PO DAILY [facility] Last Admin: 04/09/17 10:32 Dose: Not Given Magnesium Oxide (Mag-Ox) 400 mg PO BID [facility] Last Admin: 04/09/17 10:31 Dose: 400 mg Metoprolol Tartrate (Lopressor) 25 mg PO DAILY [facility] Last Admin: 04/09/17 10:31 Dose: Not Given Multivitamins (Thera Tab) 1 tab PO DAILY [facility] Last Admin: 04/09/17 10:51 Dose: 1 tab Nystatin (Nystop Topical Powder) 0 gm TOP Q6H PRN PRN Reason: Rash Last Admin: 04/05/17 10:48 Dose: 1 applic Oxycodone HCl (Oxycontin Extended Release Tab) 80 mg PO Q6 [facility] Last Admin: 04/09/17 11:50 Dose: 80 mg Oxycodone/Acetaminophen (Percocet 5/325 Mg Tab) 2 tab PO Q4H PRN PRN Reason: Pain, severe (8-10) Stop: 04/12/17 12:00 Last Admin: 04/09/17 12:12 Dose: 2 tab Pantoprazole Sodium (Protonix Ec Tab) 40 mg PO ACB [facility] Last Admin: 04/09/17 07:56 Dose: 40 mg Warfarin Sodium (Coumadin) 5 mg PO 1800 [facility] PRN Reason: Protocol Stop: 04/10/17 05:00 Warfarin Sodium (Coumadin) 7.5 mg PO 1800 [facility] PRN Reason: Protocol Zaleplon (Sonata) 10 mg PO HS [facility] Last Admin: 04/08/17 21:19 Dose: 10 mg Zinc Sulfate (Zinc Sulfate 220 Mg Cap) 220 mg PO DAILY [facility] Last Admin: 04/09/17 10:31 Dose: 220 mg - Labs Labs: 04/07/17 06:59 04/09/17 07:30 PT 28.2 Seconds (9.9-11.8) H 04/09/17 07:30 INR 2.61 (0.93-1.08) H 04/09/17 07:30 - Constitutional Appears: Well, Non-toxic, No Acute Distress - Extremities Exam Additional comments: Vasc: Non-palpable pedal pulses due to edema b/l, TG warm to warm, CFT < 3 sec to all digits, +1 pitting edema Neuro: grossly diminished Derm: +1 pitting edema to legs bilateral, localized erythema to mid-calf bilateral. Left posterior distal 1/2 of leg superficial ulceration measuring 13 x 7.5cm with heavy sanguinous drainage noted. Absent undermining on a granular base with moderate jamila-wound macerations, and active serous drainage. Anterior leg stable scabs noted. Right distal medial leg, resolved re-epithelialized ulcer base. MUSC: pain on palpation of posterior and medial legs b/l - Neurological Exam Neurological Exam: Alert, Awake, Oriented x3 - Psychiatric Exam Psychiatric exam: Normal Affect, Normal Mood Assessment and Plan - Assessment and Plan (Free Text) Assessment: 56 y/o male cellulitis and bilateral superficial venous stasis ulcerations Plan: patient evaluated and seen at bedside with attending, Dr. Daniels, present. Labs and vitals reviewed; afebrile, absent leukocytosis continue IV abx per ID cleansed legs with saline. Right leg dressed with skin protectant and DSD. Left leg dressing changed to Maxorb, ABD, kerlix, and YAYO Patient encouraged to ambulating as tolerated. Continue IV antibiotics per ID: podiatry will continue to monitor while patient remains in house
--- NOTE | 2017-04-09 17:02 | PN ---
DATE: 04/09/2017 HISTORY OF PRESENT ILLNESS: The patient is in bed in no acute distress, nontoxic. PHYSICAL EXAMINATION: VITAL SIGNS: Temperature is 98, blood pressure is 88/50, respiratory rate of 16. HEENT: Unremarkable. NECK: Supple. LUNGS: Have decreased breath sounds. HEART: Normal S1, S2. ABDOMEN: Soft. LABORATORY DATA: Reveals a white count of 6.9, hemoglobin of 11, and platelets of 147. Chemistries: BUN of 39, creatinine of 1.4. ASSESSMENT AND PLAN: A 57-year-old male with skin and skin soft tissue infection with bilateral leg ulcers in a patient with recurrent leg infections, and also is growing methicillin-sensitive Staphylo coccus aureus, multidrug-resistant pseudomonas, extended spectrum beta lactamase, status post wound v acuum-assisted closure placement for upper thigh wounds and on the skin, and skin infection in the le ft lower extremity with pseudomonas in a patient with morbid obesity, body mass index of greater than 60, hypothyroidism, and chronic pain syndrome. Currently day #4 of meropenem, colistin, and doxycyc line. Would complete 7-10 days. Review of the orders reveals the patient's colistin is 150 mg IV q. 12. The patient is also on Coumadin. The patient is on Cymbalta and meropenem 1 g q. 12. Will fol low with you. Ralph Blanco MD cc: [phone] TT: 04/09/2017 17:02:03 Confirmation # [id number] Dictation # [id number] dn
[2017-04-10] MEDS: Oxycodone/Acetaminophen 5/325 mg Tab PO PRN ×5 (00:04→23:17)
[2017-04-10] MEDS: oxyCODONE 80 mg ER Tab (oxyCONTIN) PO SCH ×5 (00:04→23:16)
[2017-04-10] MEDS: Insulin Lispro 1 UNITS/0.01 ML SC SCH ×5 (01:31→21:22)
[2017-04-10] MEDS: Levothyroxine 75 MCG TAB PO SCH (08:10)
[2017-04-10 08:16] LABS: INR 2.61 (0.93-1.08)
[2017-04-10 08:18] LABS: ALB/GLOB RATIO 0.9 (1.1-1.8); ALKALINE PHOSPHATASE 169 U/L (38-133); ALT/SGPT 30 U/L (7-56); AST/SGOT 32 U/L (15-59); BILIRUBIN,TOTAL 0.5 mg/dL (0.2-1.3); BLOOD UREA NITROGEN 37 mg/dL (7-21); CALCIUM 9.8 mg/dL (8.4-10.5); CARBON DIOXIDE 32 mmol/L (21-33); CHLORIDE 93 mmol/L (98-107); GFR AFRICAN-AMERICAN > 60; GLUCOSE,RANDOM 131 mg/dL (70-110); POTASSIUM 4.6 mmol/L (3.6-5.0); SODIUM 136 mmol/L (132-148); TOTAL PROTEIN 8.6 g/dL (5.8-8.3)
[2017-04-10] MEDS: Pantoprazole 40 mg EC Tab PO SCH (08:30)
--- NOTE | 2017-04-10 09:13 | PN ---
DATE: 04/09/2017 Shortly, the patient is a 57-year-old male with reported history of depression. The patien t was admitted on the medical side for bilateral leg swelling, cellulitis. Psych consult was called for evaluation of mood symptoms. This field underwriter was following the patient up for the past week or so fo r depressive symptoms. The patient was started on Cymbalta, Neurontin as well as Sonata at the night time. The patient was followed up yesterday. The patient presented yesterday, 04/09. The patient p resented to have mood reactivity, present much better to compare with the time of admission. The pat ient reported that his mood is improving. Sleep is improving. Leg pain is much better. Besides camron t, there are no new complaints. Vital signs were stable. Temperature is 98.7, pulse is 63, blood pr essure 166/86, respirations 22, oxygen saturation 98. MEDICATIONS: Reviewed. From the psychiatric standpoint, the patient is on Cymbalta 40 mg as well as Sonata 10 mg at the nighttime. The patient is on multiple medical medications for his medical issue s. LABORATORIES: Reviewed. Most recent was from the . MENTAL STATUS EXAMINATION: The patient presented to be alert, good eye contact. Speech was normal r ate, tone, quality, and quantity. Mood described "I feel better, I thank you doc." Affect was more reactive, mood congruent. Thought process was coherent and goal directed. Thought content: The pat ient denied visual, auditory, tactile hallucinations, denied paranoid ideations. The patient does no t appear to be psychotic. The patient denied thoughts of harming himself or others, denied intent or plan. Insight and judgment are fair. Impulses are well controlled. IMPRESSION: Rule out mood disorder due to general medical condition. Rule out major depressive diso rder. Rule out adjustment disorder. PLAN: Continue current management. Continue Cymbalta. Continue Sonata. The patient part of the neuron neuropathy. At the same time, the patient is improving. This field underwriter will follow u p on this patient every other day and call me should you have any questions. Thank you very much for letting me participate in care of your patient. Tania Gramajo MD cc: [phone] TT: 04/10/2017 09:12:44 Confirmation # [id number] Dictation # [id number] cn
--- NOTE | 2017-04-10 10:24 | PN ---
DATE: 04/09/2017 The patient is comfortable, still getting IV antibiotics. No new complaints. Comfortable. The teofilo ent has no chest pain, no shortness of breath. Currently on IV meropenem, completing his days of ant ibiotic. PHYSICAL EXAMINATION: On that date is as follows: VITAL SIGNS: Temperature 98.7, heart rate 70, blood pressure 117/71, respiration 22, saturation 98% on room air. HEAD AND NECK: Normal. No JVD. No thyromegaly. CHEST: Clear, good air entry. CARDIAC: First and second sounds are normal. ABDOMEN: Obese, nontender. EXTREMITIES: Both legs are wrapped with gauze. LABORATORY DATA: INR 2.61, which is therapeutic. IMPRESSION AND PLAN: 1. Bilateral leg cellulitis. Continue IV antibiotic, meropenem. 2. Morbid obesity, obstructive sleep apnea, chronic obstructive pulmonary disease. Continue inhaled bronchodilator and BiPAP machine. 3. Morbid obesity. Spoke to the patient. He will consider bariatric surgery to alleviate all or mo st of his problems and alleviate some of his chronic pain in his knee and back. 4. History of deep venous thrombosis and pulmonary embolism, Henna filter. Continue Coumadin. 5. History of hypothyroidism, right-sided heart failure, insomnia, chronic back pain, spine pain, le ft knee pain, left knee replacement and insomnia. Plan: Continue current medications. Follow up cl inically. 6. Cellulitis, both lower extremities, left more than right. Continue local wound care. Continue I V meropenem. The patient is getting physical therapy; encouraged to do more. Will follow up as outp atient. The patient seems stable now. Will continue IV antibiotic. Yvon Gonzalez MD cc: [phone] TT: 04/10/2017 10:23:47 Confirmation # [id number] Dictation # [id number] isrrael
[2017-04-10] MEDS: Multivitamin Therapeutic Tab PO SCH (11:19)
[2017-04-10] MEDS: Magnesium Oxide 400 mg Tab UD PO SCH ×2 (11:22→18:02)
[2017-04-10] MEDS: Meropenem 1g/NS 100mL IVPB 1 GM/100 ML PIGGYBACK IVPB SCH (11:24)
[2017-04-10] MEDS: Lidocaine 5% Patch TD SCH (11:24)
[2017-04-10] MEDS: diltiaZEM 180 mg/24 Hours CD Cap PO SCH (11:25)
--- NOTE | 2017-04-10 18:10 | CP.PCM.PN ---
<Alec Bateman - Last Filed: 04/10/17 18:05> Subjective - Date & Time of Evaluation Date of Evaluation: 04/10/17 Time of Evaluation: 11:50 - Subjective Subjective: 56 y/o male seen at bedside concerning prognosis of left leg venous stasis ulcerations. Patient denies left heel pain at this time. Pt has remained confined to bed and has not ambulated since admission. Physical therapy continue to work with pt, though yesterday noted dizziness occurred when pt transitioned to seated position. Resolved in timely manner. He denies n/f/v/c/d/ sob. Objective - Vital Signs/Intake and Output Vital Signs (last 24 hours): Temp Pulse Resp BP Pulse Ox 97.8 F 60 18 116/80 98 04/10/17 16:00 04/10/17 16:00 04/10/17 16:00 04/10/17 16:00 04/10/17 16:00 Intake and Output: 04/10/17 04/10/17 06:59 18:59 Intake Total 1920 760 Output Total 2300 2400 Balance -380 -1640 - Medications Medications: Current Medications Acetaminophen (Tylenol 325mg Tab) 650 mg PO Q6H PRN PRN Reason: Fever >100.4 F Clonidine HCl (Catapres) 0.1 mg PO BID [facility] Last Admin: 04/10/17 11:22 Dose: 0.1 mg Diltiazem HCl (Cardizem Cd) 180 mg PO DAILY [facility] Last Admin: 04/10/17 11:25 Dose: 180 mg Docusate Sodium (Colace) 100 mg PO TID [facility] Last Admin: 04/10/17 14:41 Dose: Not Given Duloxetine HCl (Cymbalta) 40 mg PO DAILY [facility] Last Admin: 04/10/17 11:21 Dose: 40 mg Finasteride (Proscar) 5 mg PO DAILY [facility] Last Admin: 04/10/17 11:21 Dose: 5 mg Furosemide (Lasix) 40 mg PO BID [facility] Last Admin: 04/10/17 11:21 Dose: 40 mg Colistimethate Sodium 150 mg/ (Sodium Chloride) 100 mls @ 200 mls/hr IV Q12 [facility] Last Admin: 04/10/17 11:19 Dose: 200 mls/hr Insulin Human Lispro (Humalog) 0 units SC ACHS [facility] PRN Reason: Protocol Last Admin: 04/10/17 16:57 Dose: Not Given Levothyroxine Sodium (Synthroid) 75 mcg PO DAILY@0630 [facility] Last Admin: 04/10/17 08:10 Dose: 75 mcg Lidocaine (Lidoderm) 1 ea TD DAILY [facility] Last Admin: 04/10/17 11:24 Dose: 1 ea Lisinopril (Zestril) 5 mg PO DAILY [facility] Last Admin: 04/10/17 11:23 Dose: 5 mg Magnesium Oxide (Mag-Ox) 400 mg PO BID [facility] Last Admin: 04/10/17 11:22 Dose: 400 mg Metoprolol Tartrate (Lopressor) 25 mg PO DAILY [facility] Last Admin: 04/10/17 11:19 Dose: 25 mg Multivitamins (Thera Tab) 1 tab PO DAILY [facility] Last Admin: 04/10/17 11:19 Dose: 1 tab Nystatin (Nystop Topical Powder) 0 gm TOP Q6H PRN PRN Reason: Rash Last Admin: 04/05/17 10:48 Dose: 1 applic Oxycodone HCl (Oxycontin Extended Release Tab) 80 mg PO Q6 [facility] Last Admin: 04/10/17 12:03 Dose: 80 mg Oxycodone/Acetaminophen (Percocet 5/325 Mg Tab) 2 tab PO Q4H PRN PRN Reason: Pain, severe (8-10) Stop: 04/12/17 12:00 Last Admin: 04/10/17 12:02 Dose: 2 tab Pantoprazole Sodium (Protonix Ec Tab) 40 mg PO ACB [facility] Last Admin: 04/10/17 08:30 Dose: 40 mg Warfarin Sodium (Coumadin) 5 mg PO 1800 [facility] PRN Reason: Protocol Warfarin Sodium (Coumadin) 7.5 mg PO 1800 [facility] PRN Reason: Protocol Zaleplon (Sonata) 10 mg PO HS [facility] Last Admin: 04/09/17 22:06 Dose: 10 mg Zinc Sulfate (Zinc Sulfate 220 Mg Cap) 220 mg PO DAILY [facility] Last Admin: 04/10/17 11:23 Dose: 220 mg - Labs Labs: 04/07/17 06:59 04/10/17 07:30 PT 28.2 Seconds (9.9-11.8) H 04/10/17 07:30 INR 2.61 (0.93-1.08) H 04/10/17 07:30 - Constitutional Appears: Well, Non-toxic, No Acute Distress - Extremities Exam Additional comments: Vasc: Non-palpable pedal pulses due to edema b/l, TG warm to warm, CFT < 3 sec to all digits, +1 pitting edema Neuro: grossly diminished Derm: +1 pitting edema to legs bilateral, localized erythema to mid-calf bilateral. Left posterior distal 1/2 of leg superficial ulceration measuring 13 x 6.3cm with minor sanguinous drainage noted. Absent undermining on a granular base with moderate jamila-wound macerations. Anterior leg stable scabs noted. Right distal medial leg, resolved re-epithelialized ulcer base. MUSC: pain on palpation of posterior and medial legs b/l - Neurological Exam Neurological Exam: Alert, Awake, Oriented x3 Assessment and Plan - Assessment and Plan (Free Text) Assessment: 56 y/o male cellulitis and bilateral superficial venous stasis ulcerations Plan: patient evaluated and seen at bedside. Diswcussed with attending, Dr. Zavaleta. Labs and vitals reviewed; afebrile, absent leukocytosis continue IV abx per ID cleansed legs with saline. Right leg dressed with skin protectant and DSD. Left leg dressing changed to xeroform, ABD, kerlix, and YAYO Patient encouraged to continue with physical therapy and aggressively attempt to return to ambulation activity. Continue IV antibiotics per ID: Day 5 of 7-10 of recommended regimen. podiatry will continue to monitor while patient remains in house <Parish Zavaleta - Last Filed: 04/10/17 18:25> Objective - Vital Signs/Intake and Output Vital Signs (last 24 hours): Temp Pulse Resp BP Pulse Ox 97.8 F 60 18 116/80 98 04/10/17 16:00 04/10/17 18:03 04/10/17 16:00 04/10/17 18:03 04/10/17 16:00 Intake and Output: 04/10/17 04/10/17 06:59 18:59 Intake Total 1920 760 Output Total 2300 2400 Balance -380 -1640 - Medications Medications: Current Medications Acetaminophen (Tylenol 325mg Tab) 650 mg PO Q6H PRN PRN Reason: Fever >100.4 F Clonidine HCl (Catapres) 0.1 mg PO BID [facility] Last Admin: 04/10/17 18:03 Dose: 0.1 mg Diltiazem HCl (Cardizem Cd) 180 mg PO DAILY [facility] Last Admin: 04/10/17 11:25 Dose: 180 mg Docusate Sodium (Colace) 100 mg PO TID [facility] Last Admin: 04/10/17 18:04 Dose: Not Given Duloxetine HCl (Cymbalta) 40 mg PO DAILY [facility] Last Admin: 04/10/17 11:21 Dose: 40 mg Finasteride (Proscar) 5 mg PO DAILY [facility] Last Admin: 04/10/17 11:21 Dose: 5 mg Furosemide (Lasix) 40 mg PO BID [facility] Last Admin: 04/10/17 18:02 Dose: 40 mg Colistimethate Sodium 150 mg/ (Sodium Chloride) 100 mls @ 200 mls/hr IV Q12 [facility] Last Admin: 04/10/17 11:19 Dose: 200 mls/hr Insulin Human Lispro (Humalog) 0 units SC ACHS [facility] PRN Reason: Protocol Last Admin: 04/10/17 16:57 Dose: Not Given Levothyroxine Sodium (Synthroid) 75 mcg PO DAILY@0630 [facility] Last Admin: 04/10/17 08:10 Dose: 75 mcg Lidocaine (Lidoderm) 1 ea TD DAILY [facility] Last Admin: 04/10/17 11:24 Dose: 1 ea Lisinopril (Zestril) 5 mg PO DAILY [facility] Last Admin: 04/10/17 11:23 Dose: 5 mg Magnesium Oxide (Mag-Ox) 400 mg PO BID [facility] Last Admin: 04/10/17 18:02 Dose: 400 mg Metoprolol Tartrate (Lopressor) 25 mg PO DAILY [facility] Last Admin: 04/10/17 11:19 Dose: 25 mg Multivitamins (Thera Tab) 1 tab PO DAILY [facility] Last Admin: 04/10/17 11:19 Dose: 1 tab Nystatin (Nystop Topical Powder) 0 gm TOP Q6H PRN PRN Reason: Rash Last Admin: 04/05/17 10:48 Dose: 1 applic Oxycodone HCl (Oxycontin Extended Release Tab) 80 mg PO Q6 [facility] Last Admin: 04/10/17 18:03 Dose: 80 mg Oxycodone/Acetaminophen (Percocet 5/325 Mg Tab) 2 tab PO Q4H PRN PRN Reason: Pain, severe (8-10) Stop: 04/12/17 12:00 Last Admin: 04/10/17 18:04 Dose: 2 tab Pantoprazole Sodium (Protonix Ec Tab) 40 mg PO ACB [facility] Last Admin: 04/10/17 08:30 Dose: 40 mg Warfarin Sodium (Coumadin) 5 mg PO 1800 [facility] PRN Reason: Protocol Last Admin: 04/10/17 18:05 Dose: 5 mg Warfarin Sodium (Coumadin) 7.5 mg PO 1800 [facility] PRN Reason: Protocol Zaleplon (Sonata) 10 mg PO HS [facility] Last Admin: 04/09/17 22:06 Dose: 10 mg Zinc Sulfate (Zinc Sulfate 220 Mg Cap) 220 mg PO DAILY [facility] Last Admin: 04/10/17 11:23 Dose: 220 mg - Labs Labs: 04/07/17 06:59 04/10/17 07:30 PT 28.2 Seconds (9.9-11.8) H 04/10/17 07:30 INR 2.61 (0.93-1.08) H 04/10/17 07:30 Attending/Attestation - Attestation I have personally seen and examined this patient.: Yes I have fully participated in the care of the patient.: Yes I have reviewed all pertinent clinical information, including history, physical exam and plan: Yes
--- NOTE | 2017-04-10 18:43 | CP.PCM.PN ---
Subjective - Date & Time of Evaluation Date of Evaluation: 04/10/17 Time of Evaluation: 10:30 - Subjective Subjective: Comfortable, afebrile, less pain in the legs. Objective - Vital Signs/Intake and Output Vital Signs (last 24 hours): Temp Pulse Resp BP Pulse Ox 97.8 F 60 18 116/80 98 04/10/17 16:00 04/10/17 18:03 04/10/17 16:00 04/10/17 18:03 04/10/17 16:00 Intake and Output: 04/10/17 04/10/17 06:59 18:59 Intake Total 1920 760 Output Total 2300 2400 Balance -380 -1640 - Medications Medications: Current Medications Acetaminophen (Tylenol 325mg Tab) 650 mg PO Q6H PRN PRN Reason: Fever >100.4 F Clonidine HCl (Catapres) 0.1 mg PO BID [facility] Last Admin: 04/10/17 18:03 Dose: 0.1 mg Diltiazem HCl (Cardizem Cd) 180 mg PO DAILY [facility] Last Admin: 04/10/17 11:25 Dose: 180 mg Docusate Sodium (Colace) 100 mg PO TID [facility] Last Admin: 04/10/17 18:04 Dose: Not Given Duloxetine HCl (Cymbalta) 40 mg PO DAILY [facility] Last Admin: 04/10/17 11:21 Dose: 40 mg Finasteride (Proscar) 5 mg PO DAILY [facility] Last Admin: 04/10/17 11:21 Dose: 5 mg Furosemide (Lasix) 40 mg PO BID [facility] Last Admin: 04/10/17 18:02 Dose: 40 mg Colistimethate Sodium 150 mg/ (Sodium Chloride) 100 mls @ 200 mls/hr IV Q12 [facility] Last Admin: 04/10/17 11:19 Dose: 200 mls/hr Insulin Human Lispro (Humalog) 0 units SC ACHS [facility] PRN Reason: Protocol Last Admin: 04/10/17 16:57 Dose: Not Given Levothyroxine Sodium (Synthroid) 75 mcg PO DAILY@0630 [facility] Last Admin: 04/10/17 08:10 Dose: 75 mcg Lidocaine (Lidoderm) 1 ea TD DAILY [facility] Last Admin: 04/10/17 11:24 Dose: 1 ea Lisinopril (Zestril) 5 mg PO DAILY [facility] Last Admin: 04/10/17 11:23 Dose: 5 mg Magnesium Oxide (Mag-Ox) 400 mg PO BID [facility] Last Admin: 04/10/17 18:02 Dose: 400 mg Metoprolol Tartrate (Lopressor) 25 mg PO DAILY [facility] Last Admin: 04/10/17 11:19 Dose: 25 mg Multivitamins (Thera Tab) 1 tab PO DAILY [facility] Last Admin: 04/10/17 11:19 Dose: 1 tab Nystatin (Nystop Topical Powder) 0 gm TOP Q6H PRN PRN Reason: Rash Last Admin: 04/05/17 10:48 Dose: 1 applic Oxycodone HCl (Oxycontin Extended Release Tab) 80 mg PO Q6 [facility] Last Admin: 04/10/17 18:03 Dose: 80 mg Oxycodone/Acetaminophen (Percocet 5/325 Mg Tab) 2 tab PO Q4H PRN PRN Reason: Pain, severe (8-10) Stop: 04/12/17 12:00 Last Admin: 04/10/17 18:04 Dose: 2 tab Pantoprazole Sodium (Protonix Ec Tab) 40 mg PO ACB [facility] Last Admin: 04/10/17 08:30 Dose: 40 mg Warfarin Sodium (Coumadin) 5 mg PO 1800 [facility] PRN Reason: Protocol Last Admin: 04/10/17 18:05 Dose: 5 mg Warfarin Sodium (Coumadin) 7.5 mg PO 1800 [facility] PRN Reason: Protocol Zaleplon (Sonata) 10 mg PO HS [facility] Last Admin: 04/09/17 22:06 Dose: 10 mg Zinc Sulfate (Zinc Sulfate 220 Mg Cap) 220 mg PO DAILY [facility] Last Admin: 04/10/17 11:23 Dose: 220 mg - Labs Labs: 04/07/17 06:59 04/10/17 07:30 PT 28.2 Seconds (9.9-11.8) H 04/10/17 07:30 INR 2.61 (0.93-1.08) H 04/10/17 07:30 - Constitutional Appears: Non-toxic, No Acute Distress - Head Exam Head Exam: NORMAL INSPECTION - ENT Exam ENT Exam: Mucous Membranes Moist - Neck Exam Neck Exam: absent: Lymphadenopathy, Meningismus - Respiratory Exam Respiratory Exam: Decreased Breath Sounds - Cardiovascular Exam Cardiovascular Exam: +S1, +S2 - GI/Abdominal Exam GI & Abdominal Exam: Soft. absent: Tenderness - Extremities Exam Additional comments: both legs with dressings in place Assessment and Plan - Assessment and Plan (Free Text) Plan: Assessment skin and skin structure infection with bilateral leg infected ulcers in a patient with recurrent leg infections and venous stasis, now growing MSSA and multidrug resistant Pseudomonas and ESBL E. coli S/P wound vacuum placement for upper thigh wounds history of Skin and skin structure infection of the left lower extremity with Pseudomonas, Enterococcus and MRSA in a patient with recurrent left leg infection Morbid obesity with BMI of 43 DM HTN COPD hyopthyroidism bilateral lower extremity swelling due to venous stasis Osteoarthritis Chronic pain syndrome Plan continue Doxycycline, Merrem and Colistin (day 5) - target 7-10 days of therapy there is an increase in Creatinine from 1.2 to 1.4 and will continue to monitor will continue to follow clinically
[2017-04-11] MEDS: oxyCODONE 80 mg ER Tab (oxyCONTIN) PO SCH ×3 (05:39→17:50)
[2017-04-11] MEDS: Oxycodone/Acetaminophen 5/325 mg Tab PO PRN ×3 (05:39→17:50)
[2017-04-11] MEDS: Levothyroxine 75 MCG TAB PO SCH (05:40)
[2017-04-11] MEDS: Pantoprazole 40 mg EC Tab PO SCH (06:29)
[2017-04-11 07:49] LABS: ALB/GLOB RATIO 0.9 (1.1-1.8); BILIRUBIN,TOTAL 0.6 mg/dL (0.2-1.3); CALCIUM 9.7 mg/dL (8.4-10.5); POTASSIUM 4.2 mmol/L (3.6-5.0); TOTAL PROTEIN 8.4 g/dL (5.8-8.3)
[2017-04-11 07:50] LABS: INR 2.69 (0.93-1.08)
[2017-04-11] MEDS: Insulin Lispro 1 UNITS/0.01 ML SC SCH ×4 (08:00→22:05)
[2017-04-11] MEDS: diltiaZEM 180 mg/24 Hours CD Cap PO SCH (09:50)
[2017-04-11] MEDS: Magnesium Oxide 400 mg Tab UD PO SCH ×2 (09:51→17:49)
[2017-04-11] MEDS: Multivitamin Therapeutic Tab PO SCH (09:52)
[2017-04-11] MEDS: Lidocaine 5% Patch TD SCH (09:53)
--- NOTE | 2017-04-11 09:55 | CP.PCM.PN ---
<Zandra Shahid - Last Filed: 04/11/17 09:52> Subjective - Date & Time of Evaluation Date of Evaluation: 04/11/17 Time of Evaluation: 09:52 - Subjective Subjective: 56 year old male was seen at bedside with attending, Dr. Zavaleta concerning prognosis of left leg venous stasis ulcerations. Pt has remained confined to bed and has not ambulated since admission. Denies any acute events overnight. He denies n/f/v/c/d/sob. Objective - Vital Signs/Intake and Output Vital Signs (last 24 hours): Temp Pulse Resp BP Pulse Ox 97.8 F 60 18 116/80 98 04/10/17 16:00 04/10/17 18:03 04/10/17 16:00 04/10/17 18:03 04/10/17 16:00 Intake and Output: 04/11/17 04/11/17 06:59 18:59 Intake Total 1180 Output Total 2800 Balance -1620 - Medications Medications: Current Medications Acetaminophen (Tylenol 325mg Tab) 650 mg PO Q6H PRN PRN Reason: Fever >100.4 F Clonidine HCl (Catapres) 0.1 mg PO BID [facility] Last Admin: 04/10/17 18:03 Dose: 0.1 mg Diltiazem HCl (Cardizem Cd) 180 mg PO DAILY [facility] Last Admin: 04/10/17 11:25 Dose: 180 mg Docusate Sodium (Colace) 100 mg PO TID [facility] Last Admin: 04/10/17 18:04 Dose: Not Given Duloxetine HCl (Cymbalta) 40 mg PO DAILY [facility] Last Admin: 04/10/17 11:21 Dose: 40 mg Finasteride (Proscar) 5 mg PO DAILY [facility] Last Admin: 04/10/17 11:21 Dose: 5 mg Colistimethate Sodium 150 mg/ (Sodium Chloride) 100 mls @ 200 mls/hr IV Q12 [facility] Last Admin: 04/10/17 22:10 Dose: 200 mls/hr Insulin Human Lispro (Humalog) 0 units SC ACHS [facility] PRN Reason: Protocol Last Admin: 04/10/17 21:22 Dose: Not Given Levothyroxine Sodium (Synthroid) 75 mcg PO DAILY@0630 [facility] Last Admin: 04/11/17 05:40 Dose: 75 mcg Lidocaine (Lidoderm) 1 ea TD DAILY [facility] Last Admin: 04/10/17 11:24 Dose: 1 ea Lisinopril (Zestril) 5 mg PO DAILY [facility] Last Admin: 04/10/17 11:23 Dose: 5 mg Magnesium Oxide (Mag-Ox) 400 mg PO BID [facility] Last Admin: 04/10/17 18:02 Dose: 400 mg Metoprolol Tartrate (Lopressor) 25 mg PO DAILY [facility] Last Admin: 04/10/17 11:19 Dose: 25 mg Multivitamins (Thera Tab) 1 tab PO DAILY [facility] Last Admin: 04/10/17 11:19 Dose: 1 tab Nystatin (Nystop Topical Powder) 0 gm TOP Q6H PRN PRN Reason: Rash Last Admin: 04/05/17 10:48 Dose: 1 applic Oxycodone HCl (Oxycontin Extended Release Tab) 80 mg PO Q6 [facility] Last Admin: 04/11/17 05:39 Dose: 80 mg Oxycodone/Acetaminophen (Percocet 5/325 Mg Tab) 2 tab PO Q4H PRN PRN Reason: Pain, severe (8-10) Stop: 04/12/17 12:00 Last Admin: 04/11/17 05:39 Dose: 2 tab Pantoprazole Sodium (Protonix Ec Tab) 40 mg PO ACB [facility] Last Admin: 04/11/17 06:29 Dose: 40 mg Warfarin Sodium (Coumadin) 5 mg PO 1800 [facility] PRN Reason: Protocol Last Admin: 04/10/17 18:05 Dose: 5 mg Warfarin Sodium (Coumadin) 7.5 mg PO 1800 [facility] PRN Reason: Protocol Zaleplon (Sonata) 10 mg PO HS [facility] Last Admin: 04/10/17 22:11 Dose: 10 mg Zinc Sulfate (Zinc Sulfate 220 Mg Cap) 220 mg PO DAILY [facility] Last Admin: 04/10/17 11:23 Dose: 220 mg - Labs Labs: 04/07/17 06:59 04/11/17 07:00 PT 29.0 Seconds (9.9-11.8) H 04/11/17 07:00 INR 2.69 (0.93-1.08) H 04/11/17 07:00 - Constitutional Appears: Well, Non-toxic, No Acute Distress - Extremities Exam Additional comments: Lower extremity focused exam: Vasc: Non-palpable pedal pulses due to edema b/l, TG warm to warm, CFT < 3 sec to all digits, +1 pitting edema Neuro: grossly diminished Derm: +1 pitting edema to legs bilateral, localized erythema to mid-calf bilateral. Left posterior distal 1/2 of leg superficial ulceration measuring 13 x 6.3cm with minor sanguinous drainage noted. Absent undermining on a granular base with moderate jamila-wound macerations. Anterior leg stable scabs noted. Right distal medial leg, resolved re-epithelialized ulcer base. MUSC: pain on palpation of posterior and medial legs b/l - Neurological Exam Neurological Exam: Alert, Awake, Oriented x3 - Psychiatric Exam Psychiatric exam: Normal Affect, Normal Mood Assessment and Plan - Assessment and Plan (Free Text) Assessment: 56 year old male cellulitis and bilateral superficial venous stasis ulcerations Plan: patient evaluated and seen at bedside with attending, Dr. Zavaleta. Labs and vitals reviewed; afebrile, absent leukocytosis continue IV abx per ID cleansed left lower extremity with saline. Left leg dressed with xeroform, ABD, kerlix, and YAYO Patient encouraged to continue with physical therapy and aggressively attempt to return to ambulation activity. Continue IV antibiotics per ID: Day 5 of 7-10 of recommended regimen. podiatry will continue to monitor while patient remains in house <Parish Zavaleta - Last Filed: 04/12/17 21:09> Objective - Vital Signs/Intake and Output Vital Signs (last 24 hours): Temp Pulse Resp BP Pulse Ox 97.7 F 67 18 131/82 97 04/12/17 16:00 04/12/17 18:34 04/12/17 16:00 04/12/17 18:34 04/12/17 16:00 Intake and Output: 04/12/17 04/13/17 18:59 06:59 Intake Total 640 Output Total 640 Balance 0 - Medications Medications: Current Medications Acetaminophen (Tylenol 325mg Tab) 650 mg PO Q6H PRN PRN Reason: Fever >100.4 F Clonidine HCl (Catapres) 0.1 mg PO BID [facility] Last Admin: 04/12/17 18:34 Dose: 0.1 mg Diltiazem HCl (Cardizem Cd) 180 mg PO DAILY [facility] Last Admin: 04/12/17 10:19 Dose: Not Given Docusate Sodium (Colace) 100 mg PO TID [facility] Last Admin: 04/12/17 18:35 Dose: Not Given Duloxetine HCl (Cymbalta) 40 mg PO DAILY [facility] Last Admin: 04/12/17 10:18 Dose: 40 mg Finasteride (Proscar) 5 mg PO DAILY [facility] Last Admin: 04/12/17 10:18 Dose: 5 mg Meropenem 1g/NS 100mL IVPB (Meropenem 1g/Ns 100ml Ivpb) 1 gm in 100 mls @ 100 mls/hr IVPB Q8 [facility] PRN Reason: Protocol Stop: 04/18/17 14:01 Last Admin: 04/12/17 17:06 Dose: 100 mls/hr Sodium Chloride (Sodium Chloride 0.45%) 1,000 mls @ 75 mls/hr IV .[id number] [facility] Last Admin: 04/12/17 12:09 Dose: 75 mls/hr Insulin Human Lispro (Humalog) 0 units SC ACHS [facility] PRN Reason: Protocol Last Admin: 04/12/17 16:35 Dose: Not Given Levothyroxine Sodium (Synthroid) 75 mcg PO DAILY@0630 [facility] Last Admin: 04/12/17 06:21 Dose: 75 mcg Lidocaine (Lidoderm) 1 ea TD DAILY [facility] Last Admin: 04/12/17 10:19 Dose: 1 ea Magnesium Oxide (Mag-Ox) 400 mg PO BID [facility] Last Admin: 04/12/17 18:35 Dose: 400 mg Metoprolol Tartrate (Lopressor) 25 mg PO DAILY [facility] Last Admin: 04/12/17 10:19 Dose: Not Given Multivitamins (Thera Tab) 1 tab PO DAILY [facility] Last Admin: 04/12/17 10:18 Dose: 1 tab Nystatin (Nystop Topical Powder) 0 gm TOP Q6H PRN PRN Reason: Rash Last Admin: 04/05/17 10:48 Dose: 1 applic Olopatadine HCl (Patanol 0.1% Opht Soln) 0 ml OU DAILY [facility] Last Admin: 04/12/17 10:19 Dose: 1 drop Oxycodone HCl (Oxycontin Extended Release Tab) 80 mg PO Q6H [facility] Last Admin: 04/12/17 18:34 Dose: 80 mg Oxycodone/Acetaminophen (Percocet 5/325 Mg Tab) 2 tab PO Q4H PRN PRN Reason: Pain, moderate (4-7) Stop: 04/15/17 12:18 Last Admin: 04/12/17 18:35 Dose: 2 tab Pantoprazole Sodium (Protonix Ec Tab) 40 mg PO ACB [facility] Last Admin: 04/12/17 08:44 Dose: 40 mg Warfarin Sodium (Coumadin) 7.5 mg PO 1800 [facility] PRN Reason: Protocol Last Admin: 04/12/17 18:35 Dose: 7.5 mg Zaleplon (Sonata) 10 mg PO HS [facility] Last Admin: 04/11/17 22:07 Dose: 10 mg Zinc Sulfate (Zinc Sulfate 220 Mg Cap) 220 mg PO DAILY [facility] Last Admin: 04/12/17 10:18 Dose: 220 mg - Labs Labs: 04/07/17 06:59 04/12/17 07:00 PT 30.8 Seconds (9.9-11.8) H* 04/12/17 07:00 INR 2.85 (0.93-1.08) H 04/12/17 07:00 Attending/Attestation - Attestation I have personally seen and examined this patient.: Yes I have fully participated in the care of the patient.: Yes I have reviewed all pertinent clinical information, including history, physical exam and plan: Yes
[2017-04-11] MEDS: Meropenem 1g/NS 100mL IVPB 1 GM/100 ML PIGGYBACK IVPB SCH ×2 (15:17→22:03)
--- NOTE | 2017-04-11 16:25 | CP.PCM.PN ---
Subjective - Date & Time of Evaluation Date of Evaluation: 04/11/17 Time of Evaluation: 13:05 - Subjective Subjective: Comfortable in bed, not in distress, less pain in the legs. Objective - Vital Signs/Intake and Output Vital Signs (last 24 hours): Temp Pulse Resp BP Pulse Ox 97.8 F 60 18 104/65 98 04/10/17 16:00 04/10/17 18:03 04/10/17 16:00 04/11/17 09:52 04/10/17 16:00 Intake and Output: 04/11/17 04/11/17 06:59 18:59 Intake Total 1180 Output Total 2800 Balance -1620 - Medications Medications: Current Medications Acetaminophen (Tylenol 325mg Tab) 650 mg PO Q6H PRN PRN Reason: Fever >100.4 F Clonidine HCl (Catapres) 0.1 mg PO BID [facility] Last Admin: 04/11/17 09:51 Dose: 0.1 mg Diltiazem HCl (Cardizem Cd) 180 mg PO DAILY [facility] Last Admin: 04/11/17 09:50 Dose: 180 mg Docusate Sodium (Colace) 100 mg PO TID [facility] Last Admin: 04/11/17 09:50 Dose: 100 mg Duloxetine HCl (Cymbalta) 40 mg PO DAILY [facility] Last Admin: 04/11/17 09:51 Dose: 40 mg Finasteride (Proscar) 5 mg PO DAILY [facility] Last Admin: 04/11/17 09:51 Dose: 5 mg Meropenem 1g/NS 100mL IVPB (Meropenem 1g/Ns 100ml Ivpb) 100 mls @ 100 mls/hr IVPB Q8 [facility] PRN Reason: Protocol Stop: 04/18/17 14:01 Insulin Human Lispro (Humalog) 0 units SC ACHS [facility] PRN Reason: Protocol Last Admin: 04/11/17 08:00 Dose: Not Given Levothyroxine Sodium (Synthroid) 75 mcg PO DAILY@0630 [facility] Last Admin: 04/11/17 05:40 Dose: 75 mcg Lidocaine (Lidoderm) 1 ea TD DAILY [facility] Last Admin: 04/11/17 09:53 Dose: 1 ea Lisinopril (Zestril) 5 mg PO DAILY [facility] Last Admin: 04/11/17 09:51 Dose: 5 mg Magnesium Oxide (Mag-Ox) 400 mg PO BID [facility] Last Admin: 04/11/17 09:51 Dose: 400 mg Metoprolol Tartrate (Lopressor) 25 mg PO DAILY [facility] Last Admin: 04/11/17 09:52 Dose: 25 mg Multivitamins (Thera Tab) 1 tab PO DAILY [facility] Last Admin: 04/11/17 09:52 Dose: 1 tab Nystatin (Nystop Topical Powder) 0 gm TOP Q6H PRN PRN Reason: Rash Last Admin: 04/05/17 10:48 Dose: 1 applic Oxycodone HCl (Oxycontin Extended Release Tab) 80 mg PO Q6 [facility] Last Admin: 04/11/17 05:39 Dose: 80 mg Oxycodone/Acetaminophen (Percocet 5/325 Mg Tab) 2 tab PO Q4H PRN PRN Reason: Pain, severe (8-10) Stop: 04/12/17 12:00 Last Admin: 04/11/17 05:39 Dose: 2 tab Pantoprazole Sodium (Protonix Ec Tab) 40 mg PO ACB [facility] Last Admin: 04/11/17 06:29 Dose: 40 mg Warfarin Sodium (Coumadin) 5 mg PO 1800 [facility] PRN Reason: Protocol Last Admin: 04/10/17 18:05 Dose: 5 mg Warfarin Sodium (Coumadin) 7.5 mg PO 1800 [facility] PRN Reason: Protocol Zaleplon (Sonata) 10 mg PO HS [facility] Last Admin: 04/10/17 22:11 Dose: 10 mg Zinc Sulfate (Zinc Sulfate 220 Mg Cap) 220 mg PO DAILY [facility] Last Admin: 04/11/17 09:52 Dose: 220 mg - Labs Labs: 04/07/17 06:59 04/11/17 07:00 PT 29.0 Seconds (9.9-11.8) H 04/11/17 07:00 INR 2.69 (0.93-1.08) H 04/11/17 07:00 - Constitutional Appears: Non-toxic, No Acute Distress - Head Exam Head Exam: NORMAL INSPECTION - Neck Exam Neck Exam: absent: Meningismus - Respiratory Exam Respiratory Exam: Decreased Breath Sounds - Cardiovascular Exam Cardiovascular Exam: +S1, +S2 - GI/Abdominal Exam GI & Abdominal Exam: Soft. absent: Tenderness Assessment and Plan - Assessment and Plan (Free Text) Plan: Assessment skin and skin structure infection with bilateral leg infected ulcers in a patient with recurrent leg infections and venous stasis, now growing MSSA and multidrug resistant Pseudomonas and ESBL E. coli S/P wound vacuum placement for upper thigh wounds history of Skin and skin structure infection of the left lower extremity with Pseudomonas, Enterococcus and MRSA in a patient with recurrent left leg infection Morbid obesity with BMI of 43 DM HTN COPD hyopthyroidism bilateral lower extremity swelling due to venous stasis Osteoarthritis Chronic pain syndrome Plan on Merrem and Colistin (day 6) - target 7-10 days of therapy there is an increase in Creatinine from 1.2 to 1.4 to 1.7 and therefore will hold Colistin will continue to follow clinically
[2017-04-11] MEDS: Olopatadine 0.1% Opht Sol OU SCH (22:03)
[2017-04-12] MEDS: Oxycodone/Acetaminophen 5/325 mg Tab PO PRN ×4 (00:21→18:35)
[2017-04-12] MEDS: oxyCODONE 80 mg ER Tab (oxyCONTIN) PO SCH ×5 (00:22→18:34)
[2017-04-12] MEDS: Meropenem 1g/NS 100mL IVPB 1 GM/100 ML PIGGYBACK IVPB SCH ×3 (06:10→21:24)
[2017-04-12] MEDS: Levothyroxine 75 MCG TAB PO SCH (06:21)
[2017-04-12] MEDS: Insulin Lispro 1 UNITS/0.01 ML SC SCH ×4 (07:59→21:30)
[2017-04-12 08:16] LABS: ALB/GLOB RATIO 0.9 (1.1-1.8); BILIRUBIN,TOTAL 0.5 mg/dL (0.2-1.3); CALCIUM 9.5 mg/dL (8.4-10.5); POTASSIUM 4.3 mmol/L (3.6-5.0); TOTAL PROTEIN 8.6 g/dL (5.8-8.3)
[2017-04-12 08:29] LABS: INR 2.85 (0.93-1.08)
[2017-04-12] MEDS: Pantoprazole 40 mg EC Tab PO SCH (08:44)
[2017-04-12] MEDS ORDERED: Olopatadine 0.1% Opht Sol OU SCH (10:00)
[2017-04-12] MEDS: Multivitamin Therapeutic Tab PO SCH (10:18)
[2017-04-12] MEDS: Magnesium Oxide 400 mg Tab UD PO SCH ×2 (10:18→18:35)
[2017-04-12] MEDS: diltiaZEM 180 mg/24 Hours CD Cap PO SCH ×2 (10:18→10:19)
[2017-04-12] MEDS: Lidocaine 5% Patch TD SCH (10:19)
[2017-04-12] MEDS: Olopatadine 0.1% Opht Sol OU SCH (10:19)
[2017-04-12] MEDS: Sodium Chloride 0.45% 1,000 ML IV SCH (12:09)
[2017-04-12] MEDS ORDERED: oxyCODONE 80 mg ER Tab (oxyCONTIN) PO SCH (12:30)
--- NOTE | 2017-04-12 14:04 | CP.PCM.PN ---
Subjective - Date & Time of Evaluation Date of Evaluation: 04/12/17 Time of Evaluation: 13:00 - Subjective Subjective: Comfortable, afebrile, less pain in the legs, not in distress. Objective - Vital Signs/Intake and Output Vital Signs (last 24 hours): Temp Pulse Resp BP Pulse Ox 98.6 F 58 L 18 113/71 96 04/12/17 08:22 04/12/17 08:22 04/12/17 08:22 04/12/17 08:22 04/12/17 08:22 Intake and Output: 04/12/17 04/12/17 06:59 18:59 Intake Total 2000 Output Total 4000 Balance -2000 - Medications Medications: Current Medications Acetaminophen (Tylenol 325mg Tab) 650 mg PO Q6H PRN PRN Reason: Fever >100.4 F Clonidine HCl (Catapres) 0.1 mg PO BID [facility] Last Admin: 04/11/17 17:47 Dose: 0.1 mg Diltiazem HCl (Cardizem Cd) 180 mg PO DAILY [facility] Last Admin: 04/11/17 09:50 Dose: 180 mg Docusate Sodium (Colace) 100 mg PO TID [facility] Last Admin: 04/11/17 17:48 Dose: Not Given Duloxetine HCl (Cymbalta) 40 mg PO DAILY [facility] Last Admin: 04/11/17 09:51 Dose: 40 mg Finasteride (Proscar) 5 mg PO DAILY [facility] Last Admin: 04/11/17 09:51 Dose: 5 mg Meropenem 1g/NS 100mL IVPB (Meropenem 1g/Ns 100ml Ivpb) 1 gm in 100 mls @ 100 mls/hr IVPB Q8 [facility] PRN Reason: Protocol Stop: 04/18/17 14:01 Last Admin: 04/12/17 06:10 Dose: 100 mls/hr Insulin Human Lispro (Humalog) 0 units SC ACHS [facility] PRN Reason: Protocol Last Admin: 04/12/17 07:59 Dose: Not Given Levothyroxine Sodium (Synthroid) 75 mcg PO DAILY@0630 [facility] Last Admin: 04/12/17 06:21 Dose: 75 mcg Lidocaine (Lidoderm) 1 ea TD DAILY [facility] Last Admin: 04/11/17 09:53 Dose: 1 ea Lisinopril (Zestril) 5 mg PO DAILY [facility] Last Admin: 04/11/17 09:51 Dose: 5 mg Magnesium Oxide (Mag-Ox) 400 mg PO BID [facility] Last Admin: 04/11/17 17:49 Dose: 400 mg Metoprolol Tartrate (Lopressor) 25 mg PO DAILY [facility] Last Admin: 04/11/17 09:52 Dose: 25 mg Multivitamins (Thera Tab) 1 tab PO DAILY [facility] Last Admin: 04/11/17 09:52 Dose: 1 tab Nystatin (Nystop Topical Powder) 0 gm TOP Q6H PRN PRN Reason: Rash Last Admin: 04/05/17 10:48 Dose: 1 applic Olopatadine HCl (Patanol 0.1% Opht Soln) 0 ml OU DAILY [facility] Last Admin: 04/11/17 22:03 Dose: 1 drop Oxycodone HCl (Oxycontin Extended Release Tab) 80 mg PO Q6 [facility] Last Admin: 04/12/17 06:10 Dose: 80 mg Oxycodone/Acetaminophen (Percocet 5/325 Mg Tab) 2 tab PO Q4H PRN PRN Reason: Pain, severe (8-10) Stop: 04/12/17 12:00 Last Admin: 04/12/17 06:10 Dose: 2 tab Pantoprazole Sodium (Protonix Ec Tab) 40 mg PO ACB [facility] Last Admin: 04/12/17 08:44 Dose: 40 mg Warfarin Sodium (Coumadin) 5 mg PO 1800 [facility] PRN Reason: Protocol Last Admin: 04/11/17 17:48 Dose: 5 mg Warfarin Sodium (Coumadin) 7.5 mg PO 1800 [facility] PRN Reason: Protocol Last Admin: 04/11/17 17:48 Dose: 7.5 mg Zaleplon (Sonata) 10 mg PO HS [facility] Last Admin: 04/11/17 22:07 Dose: 10 mg Zinc Sulfate (Zinc Sulfate 220 Mg Cap) 220 mg PO DAILY [facility] Last Admin: 04/11/17 09:52 Dose: 220 mg - Labs Labs: 04/07/17 06:59 04/12/17 07:00 PT 30.8 Seconds (9.9-11.8) H* 04/12/17 07:00 INR 2.85 (0.93-1.08) H 04/12/17 07:00 - Constitutional Appears: Non-toxic, No Acute Distress - Head Exam Head Exam: NORMAL INSPECTION - Neck Exam Neck Exam: absent: Meningismus - Respiratory Exam Respiratory Exam: Decreased Breath Sounds - Cardiovascular Exam Cardiovascular Exam: +S1, +S2 - GI/Abdominal Exam GI & Abdominal Exam: Soft. absent: Tenderness - Extremities Exam Additional comments: both legs with dressings in place Assessment and Plan - Assessment and Plan (Free Text) Plan: Assessment skin and skin structure infection with bilateral leg infected ulcers in a patient with recurrent leg infections and venous stasis, now growing MSSA and multidrug resistant Pseudomonas and ESBL E. coli S/P wound vacuum placement for upper thigh wounds history of Skin and skin structure infection of the left lower extremity with Pseudomonas, Enterococcus and MRSA in a patient with recurrent left leg infection Morbid obesity with BMI of 43 DM HTN COPD hyopthyroidism bilateral lower extremity swelling due to venous stasis Osteoarthritis Chronic pain syndrome Plan on Merrem (day 7) - target 7-10 days of therapy there is an increase in Creatinine from 1.2 to 1.4 to 1.7 to 1.8 and therefore will continue to hold Colistin will continue to follow clinically
--- NOTE | 2017-04-12 15:14 | CON ---
DATE: 04/12/2017 HISTORY OF PRESENT ILLNESS: The patient is a 57-year-old male with a history of depression , whom the patient's psychiatrist has been following on the medical floor. I reviewed Dr. Mervat sorenson's notes. the patient for the past week for depression and patient's mood symptoms apparently have been improving with a combination of Cymbalta, Neurontin and Sonata at nighttime. Requested to follow up with patient today to ensure consistency of improvement and I interviewed patient at [facility]. The patient is alert and oriented x 3, well aware of current circumstances. His focus and eye c ontact are good. The patient reports that he continues to improve and his affect is congruent. He h as been tolerating medications and he reports that he is hopeful. He adamantly denies any wish es or suicidal thoughts. He denies having hallucinations, and delusions were not elicited. Anxiety levels are under control. He is generally friendly and appropriate with good insight and judgment. LABORATORIES: Reviewed. PSYCHIATRIC MEDICATIONS: Include Cymbalta 40 mg daily and Sonata 10 mg at bedtime, which the p atient has been tolerating well. IMPRESSION: Mood disorder, not otherwise specified; rule out major depressive disorder, moderate and improving; rule out depression secondary to general medical condition; rule out adjustment disorder with depression. RECOMMENDATIONS: We will continue with the current treatment and plan. The patient is consistently improving regarding his mood and psychiatry will continue to follow up with patient ever 2 days. Jesica porter, he is deemed medically stable. Nova Tomlinson MD cc: [id number] TT: 04/12/2017 15:13:27 Confirmation # [id number] Dictation # [id number] ln
--- NOTE | 2017-04-12 18:32 | PN ---
DATE: 04/12/2017 The patient is comfortable, no distress, no new complaints. He is getting currently IV antibiotic an d local wound dressing. He has no new complaint today. PHYSICAL EXAMINATION: As follows: VITAL SIGNS: Temperature is 97.7, heart rate 67, blood pressure 115/75. HEAD AND NECK: Normal. No JVD, no thyromegaly. CHEST: Clear, good entry. CARDIAC: First sound, second sound normal. ABDOMEN: Obese, nontender. EXTREMITIES: Both legs are wrapped with gauze and less edematous. NEUROLOGIC: Normal. Alert, awake, oriented x 3. LABORATORY DATA: The patient's blood sugar running 119. His laboratory studies show sodium ____, po tassium 4.6, chloride 93, BUN 37, creatinine 1.4, blood sugar 131. IMPRESSION AND PLAN: 1. Bilateral leg cellulitis. Continue intravenous antibiotics. The patient getting meropenem. We will follow up with infectious disease consult. 2. Chronic deep venous thrombosis, history of deep venous thrombosis, pulmonary embolism, [place] filter. Continue Coumadin. INR is 2.61. 3. Hypertension, hypercholesterolemia, morbid obesity, chronic obstructive pulmonary disease, obstru ctive sleep apnea, hypothyroidism, diabetes type 2, right-sided heart failure, prostate enlargement. Plan is to continue current medication including diltiazem 180, clonidine p.o. b.i.d. 0.1, Colace, i nsulin coverage, Lopressor 25 p.o. daily. The patient also gets nystatin and multivitamins, levothyr oxine. Will follow up clinically. The patient getting levothyroxine 75 mcg daily. 4. 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 Kaitlynn nue oxycodone. Continue OxyContin. The patient currently getting OxyContin 80 every 6 hours and oxy codone 10 every 4 hours. We will continue current treatment. Yvon Gonzalez MD cc: [phone] TT: 04/12/2017 18:31:43 Confirmation # [id number] Dictation # [id number] sn
--- NOTE | 2017-04-12 18:46 | PN ---
DATE: 04/11/2017 The patient is clinically stable. He has no new complaint. Currently on IV meropenem. PHYSICAL EXAMINATION: VITAL SIGNS: On 04/11 is as follows: Temperature 97.7, heart rate 56, blood pressure is 105/63, res pirations 20, saturation 96% on room air. HEAD AND NECK: Normal. No JVD, no thyromegaly. CHEST: Clear, good entry. CARDIAC: First sound and second sounds are normal. ABDOMEN: Morbidly obese. EXTREMITIES: Bilateral leg edema. Both legs are wrapped with gauze after dressing change by podiatr ist. NEUROLOGIC: Normal. LABORATORY DATA: Shows sodium 135, potassium 4.2, chloride 93, bicarbonate 32, BUN 43, creatinine 1. 7. His blood sugar is 120. His liver enzymes seem normal except alkaline phosphatase slightly eleva enio at 176. IMPRESSION AND PLAN: 1. Acute recurrent cellulitis of both lower extremities. Continue local wound care. Continue IV me ropenem. 2. Chronic deep venous thrombosis and the patient had a history of deep venous thrombosis and pulmon suze embolism and [place] filters. His INR is therapeutic at 2.69. Continue current Coumadin. 3. Acute renal failure. The patient did have a history of chronic renal failure in the past. Will hold off on Lasix for a of days and we will see how he does. 4. Chronic obstructive pulmonary disease, obstructive sleep apnea, morbid obesity, hypothyroidism, d iabetes type 2, right-sided heart failure, hypertension, hypercholesterolemia, chronic neck pain and chronic back pain. Plan is to continue current treatment. Continue Synthroid, insulin coverage, oxy codone, OxyContin, BiPAP machine at night, Cardizem and Catapres and follow up clinically. PLAN: Continue current therapy, repeat labs in the morning, continue BiPAP machine, chemistry in the morning and hold off on Lasix. Yvon Gonzalez MD cc: [phone] TT: 04/12/2017 18:45:52 Confirmation # [id number] Dictation # [id number] rony
--- NOTE | 2017-04-12 18:51 | PN ---
DATE: 04/12/2017 The patient is clinically stable. No new complaints. Had blood drawn today for PT/INR and for chemi stry for followup. PHYSICAL EXAMINATION: VITAL SIGNS: Temperature 98.6, heart rate 68, blood pressure 115/71, respirations 18, saturation 96% on room air. HEAD AND NECK: Normal. No JVD, no thyromegaly. CHEST: Clear, good entry. CARDIAC: First sound and second sounds are normal. ABDOMEN: Soft, obese. EXTREMITIES: Bilateral leg edema, both legs are wrapped. NEUROLOGIC: Normal. LABORATORY DATA: PT/INR: INR 2.85. His chemistry shows sodium 134, potassium 4.3, chloride 94, bic arb is 29, BUN 43, creatinine 1.8. His blood sugar 127 and his alkaline phosphatase 178. The patien t has otherwise normal liver function tests. IMPRESSION AND PLAN: 1. Acute renal insufficiency. The patient does have a history of renal failure in the past. Will d iscontinue YAYO inhibitors. Will hold off on Lasix. I am going to start the patient on IV hydrations , IV half normal saline at 75 mL per hour. Will get a renal consult, Dr. Blue. Will repeat labs in the morning. 2. Bilateral leg cellulitis. Continue meropenem for now. Continue local wound care, is doing enrique r. 3. Obstructive sleep apnea, chronic obstructive pulmonary disease, hypertension, right-sided heart f ailure. Continue BiPAP machine. Continue current treatment. 4. Diabetes, hypothyroidism, chronic neck pain, back pain and left knee pain. Continue OxyContin, o xycodone as prescribed. Will monitor the patient's status and will follow up clinically. I discussed with the patient about the morbid obesity and he needs bariatric surgery and will follow up that as an outpatient. Continue current treatment. Yvon Gonzalez MD cc: [phone] TT: 04/12/2017 18:50:45 Confirmation # [id number] Dictation # [id number] dn
--- NOTE | 2017-04-12 19:45 | CP.PCM.CON ---
History of Present Illness - History of Present Illness History of Present Illness: 56 y/o male with PMH of Asthma, Ckd requiring hd in the past, htn, chf, cad obesity, dvts that presenting initialy w/ ulcerations and venous stasis. He has been undergoing IV abx for his treatments - including colistin (for about 1 week) & merrem for MSSA and MDR pseudomonas. In the last 48 hours there has been a rise in cr. He has also been on lasix and lisinopril which were discontinued today. He denies any n/v/cp/sob/fever/chills. He otherwise has no real complaints. ROS: a full detailed ROS is negative except as in my HPI. Past Patient History - Infectious Disease Hx of Infectious Diseases: None - Tetanus Immunizations Tetanus Immunization: Unknown - Past Medical History & Family History Past Medical History?: Yes - Past Social History Smoking Status: Never Smoked Alcohol: None Drugs: Denies - CARDIAC Hx Congestive Heart Failure: Yes Hx Hypertension: Yes - PULMONARY Hx Chronic Obstructive Pulmonary Disease (COPD): Yes - NEUROLOGICAL Hx Neurological Disorder: No - HEENT Hx HEENT Problems: No - RENAL Hx Chronic Kidney Disease: Yes (required HD in 2016 briefly) - ENDOCRINE/METABOLIC Hx Hypothyroidism: Yes - HEMATOLOGICAL/ONCOLOGICAL Hx Blood Disorders: No - INTEGUMENTARY Hx Dermatological Problems: Yes Hx Cellulitis: Yes (BLE) Other/Comment: both leggs discolored - MUSCULOSKELETAL/RHEUMATOLOGICAL Hx Arthritis: Yes - GASTROINTESTINAL Hx Gastrointestinal Disorders: Yes - GENITOURINARY/GYNECOLOGICAL Hx Genitourinary Disorders: No - PSYCHIATRIC Hx Depression: Yes Hx Substance Use: No - SURGICAL HISTORY Hx Orthopedic Surgery: Yes (bilateral knee replacement) Other/Comment: total left knee - 1998. right ankle screws - 1987. right hip jason - 1982 - ANESTHESIA Hx Anesthesia: Yes Hx Anesthesia Reactions: No Hx Malignant Hyperthermia: No Meds Allergies/Adverse Reactions: Allergies Allergy/AdvReac Type Severity Reaction Status Date / Time No Known Allergies Allergy Verified 02/08/17 22:09 - Medications Medications: Current Medications Acetaminophen (Tylenol 325mg Tab) 650 mg PO Q6H PRN PRN Reason: Fever >100.4 F Clonidine HCl (Catapres) 0.1 mg PO BID [facility] Last Admin: 04/12/17 18:34 Dose: 0.1 mg Diltiazem HCl (Cardizem Cd) 180 mg PO DAILY [facility] Last Admin: 04/12/17 10:19 Dose: Not Given Docusate Sodium (Colace) 100 mg PO TID [facility] Last Admin: 04/12/17 18:35 Dose: Not Given Duloxetine HCl (Cymbalta) 40 mg PO DAILY [facility] Last Admin: 04/12/17 10:18 Dose: 40 mg Finasteride (Proscar) 5 mg PO DAILY [facility] Last Admin: 04/12/17 10:18 Dose: 5 mg Meropenem 1g/NS 100mL IVPB (Meropenem 1g/Ns 100ml Ivpb) 1 gm in 100 mls @ 100 mls/hr IVPB Q8 [facility] PRN Reason: Protocol Stop: 04/18/17 14:01 Last Admin: 04/12/17 17:06 Dose: 100 mls/hr Sodium Chloride (Sodium Chloride 0.45%) 1,000 mls @ 75 mls/hr IV .[id number] [facility] Last Admin: 04/12/17 12:09 Dose: 75 mls/hr Insulin Human Lispro (Humalog) 0 units SC ACHS [facility] PRN Reason: Protocol Last Admin: 04/12/17 16:35 Dose: Not Given Levothyroxine Sodium (Synthroid) 75 mcg PO DAILY@0630 [facility] Last Admin: 04/12/17 06:21 Dose: 75 mcg Lidocaine (Lidoderm) 1 ea TD DAILY [facility] Last Admin: 04/12/17 10:19 Dose: 1 ea Magnesium Oxide (Mag-Ox) 400 mg PO BID [facility] Last Admin: 04/12/17 18:35 Dose: 400 mg Metoprolol Tartrate (Lopressor) 25 mg PO DAILY [facility] Last Admin: 04/12/17 10:19 Dose: Not Given Multivitamins (Thera Tab) 1 tab PO DAILY [facility] Last Admin: 04/12/17 10:18 Dose: 1 tab Nystatin (Nystop Topical Powder) 0 gm TOP Q6H PRN PRN Reason: Rash Last Admin: 04/05/17 10:48 Dose: 1 applic Olopatadine HCl (Patanol 0.1% Opht Soln) 0 ml OU DAILY [facility] Last Admin: 04/12/17 10:19 Dose: 1 drop Oxycodone HCl (Oxycontin Extended Release Tab) 80 mg PO Q6H [facility] Last Admin: 06/18/17 18:34 Dose: 80 mg Oxycodone/Acetaminophen (Percocet 5/325 Mg Tab) 2 tab PO Q4H PRN PRN Reason: Pain, moderate (4-7) Stop: 04/15/17 12:18 Last Admin: 04/12/17 18:35 Dose: 2 tab Pantoprazole Sodium (Protonix Ec Tab) 40 mg PO ACB [facility] Last Admin: 04/12/17 08:44 Dose: 40 mg Warfarin Sodium (Coumadin) 7.5 mg PO 1800 [facility] PRN Reason: Protocol Last Admin: 04/12/17 18:35 Dose: 7.5 mg Zaleplon (Sonata) 10 mg PO HS [facility] Last Admin: 04/11/17 22:07 Dose: 10 mg Zinc Sulfate (Zinc Sulfate 220 Mg Cap) 220 mg PO DAILY [facility] Last Admin: 04/12/17 10:18 Dose: 220 mg Physical Exam - Constitutional Appears: Well - Head Exam Head Exam: ATRAUMATIC - Eye Exam Eye Exam: Normal appearance - ENT Exam ENT Exam: Normal Exam - Neck Exam Neck exam: Positive for: Normal Inspection - Respiratory Exam Respiratory Exam: NORMAL BREATHING PATTERN - Cardiovascular Exam Cardiovascular Exam: +S1, +S2 - GI/Abdominal Exam GI & Abdominal Exam: Normal Bowel Sounds - Extremities Exam Additional comments: dresing on b/l LE - Neurological Exam Neurological exam: Alert, Oriented x3 - Psychiatric Exam Psychiatric exam: Normal Affect - Skin Additional comments: dressings on b/l LE Results - Vital Signs Recent Vital Signs: Last Vital Signs Temp 97.7 F 04/12/17 16:00 Pulse 67 04/12/17 18:34 Resp 18 04/12/17 16:00 BP 131/82 04/12/17 18:34 Pulse Ox 97 04/12/17 16:00 - Labs Result Diagrams: 04/07/17 06:59 04/12/17 07:00 Labs: Laboratory Results - last 24 hr 04/11/17 04/12/17 04/12/17 21:03 07:00 07:00 PT 30.8 H* INR 2.85 H Sodium 134 Potassium 4.3 Chloride 94 L Carbon Dioxide 29 Anion Gap 15 BUN 43 H Creatinine 1.8 H Est GFR ( Amer) 47 Est GFR (Non-Af Amer) 39 POC Glucose (mg/dL) 100 Random Glucose 127 H Calcium 9.5 Total Bilirubin 0.5 AST 35 ALT 37 Alkaline Phosphatase 178 H Total Protein 8.6 H Albumin 4.1 Globulin 4.5 Albumin/Globulin Ratio 0.9 L 04/12/17 04/12/17 04/12/17 07:37 11:24 16:10 PT INR Sodium Potassium Chloride Carbon Dioxide Anion Gap BUN Creatinine Est GFR ( Amer) Est GFR (Non-Af Amer) POC Glucose (mg/dL) 135 H 119 H 128 H Random Glucose Calcium Total Bilirubin AST ALT Alkaline Phosphatase Total Protein Albumin Globulin Albumin/Globulin Ratio Assessment & Plan - Assessment and Plan (Free Text) Assessment: ARF/ Cellulitis/ Anemia/ HTN / hypomagnesemia plan: Carson: suspect most likely related to colistin - will check ua and urine lytes otherwise agree w/ holding colistin and also given the relative hypotension agree w/ discontinuing lasix and lisinopril. Agree w/ gentle hydration - if na drops further will need to switch to isotonic saline. Currently on mag supplement - will order mag for the morning Thank you for this interesting consult. Covering for Dr. Gomez who will resume care tomorrow
--- NOTE | 2017-04-12 23:51 | CP.PCM.PN ---
Subjective - Date & Time of Evaluation Date of Evaluation: 04/12/17 Time of Evaluation: 23:51 - Subjective Subjective: # 22 angiocath was inserted in right forearm. Dx:Poor venous access. Objective - Vital Signs/Intake and Output Vital Signs (last 24 hours): Temp Pulse Resp BP Pulse Ox 97.7 F 67 18 131/82 97 04/12/17 16:00 04/12/17 18:34 04/12/17 16:00 04/12/17 18:34 04/12/17 16:00 Intake and Output: 04/12/17 04/13/17 18:59 06:59 Intake Total 640 980 Output Total 640 1800 Balance 0 -820 - Medications Medications: Current Medications Acetaminophen (Tylenol 325mg Tab) 650 mg PO Q6H PRN PRN Reason: Fever >100.4 F Clonidine HCl (Catapres) 0.1 mg PO BID [facility] Last Admin: 04/12/17 18:34 Dose: 0.1 mg Diltiazem HCl (Cardizem Cd) 180 mg PO DAILY [facility] Last Admin: 04/12/17 10:19 Dose: Not Given Docusate Sodium (Colace) 100 mg PO TID [facility] Last Admin: 04/12/17 18:35 Dose: Not Given Duloxetine HCl (Cymbalta) 40 mg PO DAILY [facility] Last Admin: 04/12/17 10:18 Dose: 40 mg Finasteride (Proscar) 5 mg PO DAILY [facility] Last Admin: 04/12/17 10:18 Dose: 5 mg Meropenem 1g/NS 100mL IVPB (Meropenem 1g/Ns 100ml Ivpb) 1 gm in 100 mls @ 100 mls/hr IVPB Q8 [facility] PRN Reason: Protocol Stop: 04/18/17 14:01 Last Admin: 04/12/17 21:24 Dose: 100 mls/hr Sodium Chloride (Sodium Chloride 0.45%) 1,000 mls @ 75 mls/hr IV .[id number] [facility] Last Admin: 04/12/17 12:09 Dose: 75 mls/hr Insulin Human Lispro (Humalog) 0 units SC ACHS [facility] PRN Reason: Protocol Last Admin: 04/12/17 21:30 Dose: Not Given Levothyroxine Sodium (Synthroid) 75 mcg PO DAILY@0630 [facility] Last Admin: 04/12/17 06:21 Dose: 75 mcg Lidocaine (Lidoderm) 1 ea TD DAILY [facility] Last Admin: 04/12/17 10:19 Dose: 1 ea Magnesium Oxide (Mag-Ox) 400 mg PO BID [facility] Last Admin: 04/12/17 18:35 Dose: 400 mg Metoprolol Tartrate (Lopressor) 25 mg PO DAILY [facility] Last Admin: 04/12/17 10:19 Dose: Not Given Multivitamins (Thera Tab) 1 tab PO DAILY [facility] Last Admin: 04/12/17 10:18 Dose: 1 tab Nystatin (Nystop Topical Powder) 0 gm TOP Q6H PRN PRN Reason: Rash Last Admin: 04/05/17 10:48 Dose: 1 applic Olopatadine HCl (Patanol 0.1% Opht Soln) 0 ml OU DAILY [facility] Last Admin: 04/12/17 10:19 Dose: 1 drop Oxycodone HCl (Oxycontin Extended Release Tab) 80 mg PO Q6H [facility] Last Admin: 04/12/17 18:34 Dose: 80 mg Oxycodone/Acetaminophen (Percocet 5/325 Mg Tab) 2 tab PO Q4H PRN PRN Reason: Pain, moderate (4-7) Stop: 04/15/17 12:18 Last Admin: 04/12/17 18:35 Dose: 2 tab Pantoprazole Sodium (Protonix Ec Tab) 40 mg PO ACB [facility] Last Admin: 04/12/17 08:44 Dose: 40 mg Warfarin Sodium (Coumadin) 7.5 mg PO 1800 [facility] PRN Reason: Protocol Last Admin: 04/12/17 18:35 Dose: 7.5 mg Zaleplon (Sonata) 10 mg PO HS [facility] Last Admin: 04/11/17 22:07 Dose: 10 mg Zinc Sulfate (Zinc Sulfate 220 Mg Cap) 220 mg PO DAILY [facility] Last Admin: 04/12/17 10:18 Dose: 220 mg - Labs Labs: 04/07/17 06:59 04/12/17 07:00 PT 30.8 Seconds (9.9-11.8) H* 04/12/17 07:00 INR 2.85 (0.93-1.08) H 04/12/17 07:00
[2017-04-13] MEDS: Oxycodone/Acetaminophen 5/325 mg Tab PO PRN ×4 (00:14→18:42)
[2017-04-13] MEDS: oxyCODONE 80 mg ER Tab (oxyCONTIN) PO SCH ×4 (00:14→18:40)
[2017-04-13] MEDS: Levothyroxine 75 MCG TAB PO SCH (06:21)
[2017-04-13] MEDS: Meropenem 1g/NS 100mL IVPB 1 GM/100 ML PIGGYBACK IVPB SCH ×3 (06:22→21:39)
[2017-04-13] MEDS: Sodium Chloride 0.45% 1,000 ML IV SCH ×2 (06:31→13:43)
[2017-04-13 07:41] LABS: INR 3.23 (0.93-1.08)
[2017-04-13 07:48] LABS: ALB/GLOB RATIO 0.9 (1.1-1.8); BILIRUBIN,TOTAL 0.5 mg/dL (0.2-1.3); CALCIUM 9.7 mg/dL (8.4-10.5); MAGNESIUM 1.8 mg/dL (1.7-2.2); POTASSIUM 4.5 mmol/L (3.6-5.0); TOTAL PROTEIN 8.4 g/dL (5.8-8.3)
[2017-04-13] MEDS: Insulin Lispro 1 UNITS/0.01 ML SC SCH ×3 (08:22→23:11)
[2017-04-13 08:41] VITALS: RESP 20
[2017-04-13] MEDS: Pantoprazole 40 mg EC Tab PO SCH (08:51)
[2017-04-13 09:30] LABS: URINE BILIRUBIN NEGATIVE (NEGATIVE); URINE BLOOD TRACE-LYSED (NEGATIVE); URINE GLUCOSE (UA) NEGATIVE (NEGATIVE); URINE KETONE NEGATIVE (NEGATIVE); URINE LEUKOCYTE ESTERASE NEGATIVE Leu/uL (NEGATIVE); URINE PROTEIN 30 mg/dL (<30 mg/dL); URINE UROBILINOGEN 0.2 E.U./dL (<1 E.U./dL)
[2017-04-13 09:31] LABS: URINE APPEARANCE CLEAR (CLEAR); URINE COLOR LIGHT YELLOW (YELLOW)
[2017-04-13 09:40] LABS: URINE BACTERIA FEW (NEG); URINE EPITHELIAL CELLS 0 - 2 /hpf (0-5); URINE RBC 0 - 2 /hpf (0-2); URINE WBC 0 - 2 /hpf (0-6)
[2017-04-13] MEDS: Olopatadine 0.1% Opht Sol OU SCH (10:00)
--- NOTE | 2017-04-13 10:24 | PN ---
DATE: 04/13/2017 The patient was followed up today. The patient presented today more depressed, flat affect. The pat ient said that he does not feel that good today because his thinking about discharge. The patient al so reported that he feels "lonely." The patient denied thoughts of harming himself. Denied thoughts of dying. The patient denied hearing voices, denied seeing things, denied paranoid ideations. The patient does not present to be psychotic but presented to be depressed. The patient reported that ph ysical therapy spoke to him at once, and after they put patient into the seating position the patient reported to feel very dizzy. Since the time of admission the patient is not ambulating and lying fl at on the bed. This singer songwriter reviewed notes from the physical therapy evaluation from 04/09/2017; robert mmended subacute rehab or LTAC. VITAL SIGNS: Reviewed. Temperature 97.4, pulse is 68, blood pressure 143/79, respirations 20, oxyge n saturation is 98. MEDICATIONS: Reviewed. In regards of the psychotropic medication, patient is on Cymbalta 40 mg damian y. The patient is on multivitamins as well as Sonata 10 mg at the nighttime scheduled. LABORATORY DATA: Reviewed. MENTAL STATUS EXAMINATION: As this singer songwriter described above, the patient presented to be alert, orient ed, flat affect. Mood described, "I feel lonely today." Thought process was coherent, goal directed . Thought content: The patient denied visual, auditory, or tactile hallucinations; denied paranoid ideations. The patient denied thoughts of harming himself or others, denied intent or plan. The pat ient denied hearing voices, denied seeing things, denied paranoid ideation. The patient does not pre sent to be psychotic. Insight and judgment improving. Impulses are well controlled. IMPRESSION: Rule out major depressive disorder, rule out mood disorder due to general medical condit ion, rule out adjustment disorder, rule out major depressive disorder with no psychotic symptoms. PLAN: Continue current management. Continue current medications. Continue Cymbalta 40 mg daily. C ontinue Sonata 10 mg at the nighttime. Consider subacute rehab. We will follow up on this patient e very other day and advise accordingly. Thank you very much for letting me participate in the care of your patient. Should you have any ques tions, give me a call back. Tania Gramajo MD cc: [phone] TT: 04/13/2017 10:24:25 Confirmation # [id number] Dictation # [id number] mn
--- NOTE | 2017-04-13 11:25 | CP.PCM.PN ---
Subjective - Date & Time of Evaluation Date of Evaluation: 04/13/17 Time of Evaluation: 11:21 - Subjective Subjective: 56 year old male was seen at bedside with attending, Dr. Daniels concerning prognosis of left leg venous stasis ulcerations. Pt has remained confined to bed and has not ambulated since admission. Denies any acute events overnight. He denies n/f/v/c/d/sob. Objective - Vital Signs/Intake and Output Vital Signs (last 24 hours): Temp Pulse Resp BP Pulse Ox 97.4 F L 68 20 143/79 98 04/13/17 07:30 04/13/17 07:30 04/13/17 07:30 04/13/17 07:30 04/13/17 07:30 Intake and Output: 04/13/17 04/13/17 06:59 18:59 Intake Total 1700 Output Total 3050 Balance -1350 - Medications Medications: Current Medications Acetaminophen (Tylenol 325mg Tab) 650 mg PO Q6H PRN PRN Reason: Fever >100.4 F Clonidine HCl (Catapres) 0.1 mg PO BID [facility] Last Admin: 04/12/17 18:34 Dose: 0.1 mg Diltiazem HCl (Cardizem Cd) 180 mg PO DAILY [facility] Last Admin: 04/12/17 10:19 Dose: Not Given Docusate Sodium (Colace) 100 mg PO TID [facility] Last Admin: 04/13/17 00:15 Dose: 100 mg Duloxetine HCl (Cymbalta) 40 mg PO DAILY [facility] Last Admin: 04/12/17 10:18 Dose: 40 mg Finasteride (Proscar) 5 mg PO DAILY [facility] Last Admin: 04/12/17 10:18 Dose: 5 mg Meropenem 1g/NS 100mL IVPB (Meropenem 1g/Ns 100ml Ivpb) 1 gm in 100 mls @ 100 mls/hr IVPB Q8 [facility] PRN Reason: Protocol Stop: 04/18/17 14:01 Last Admin: 04/13/17 06:22 Dose: 100 mls/hr Sodium Chloride (Sodium Chloride 0.45%) 1,000 mls @ 75 mls/hr IV .[id number] [facility] Last Admin: 04/13/17 06:31 Dose: 75 mls/hr Insulin Human Lispro (Humalog) 0 units SC ACHS [facility] PRN Reason: Protocol Last Admin: 04/13/17 08:22 Dose: Not Given Levothyroxine Sodium (Synthroid) 75 mcg PO DAILY@0630 [facility] Last Admin: 04/13/17 06:21 Dose: 75 mcg Lidocaine (Lidoderm) 1 ea TD DAILY [facility] Last Admin: 04/12/17 10:19 Dose: 1 ea Magnesium Oxide (Mag-Ox) 400 mg PO BID [facility] Last Admin: 04/12/17 18:35 Dose: 400 mg Metoprolol Tartrate (Lopressor) 25 mg PO DAILY [facility] Last Admin: 04/12/17 10:19 Dose: Not Given Multivitamins (Thera Tab) 1 tab PO DAILY [facility] Last Admin: 04/12/17 10:18 Dose: 1 tab Nystatin (Nystop Topical Powder) 0 gm TOP Q6H PRN PRN Reason: Rash Last Admin: 04/05/17 10:48 Dose: 1 applic Olopatadine HCl (Patanol 0.1% Opht Soln) 0 ml OU DAILY [facility] Last Admin: 04/12/17 10:19 Dose: 1 drop Oxycodone HCl (Oxycontin Extended Release Tab) 80 mg PO Q6H [facility] Last Admin: 04/13/17 06:21 Dose: 80 mg Oxycodone/Acetaminophen (Percocet 5/325 Mg Tab) 2 tab PO Q4H PRN PRN Reason: Pain, moderate (4-7) Stop: 04/15/17 12:18 Last Admin: 04/13/17 06:21 Dose: 2 tab Pantoprazole Sodium (Protonix Ec Tab) 40 mg PO ACB [facility] Last Admin: 04/13/17 08:51 Dose: 40 mg Warfarin Sodium (Coumadin) 7.5 mg PO 1800 [facility] PRN Reason: Protocol Last Admin: 04/12/17 18:35 Dose: 7.5 mg Zaleplon (Sonata) 10 mg PO HS [facility] Last Admin: 04/12/17 22:00 Dose: Not Given Zinc Sulfate (Zinc Sulfate 220 Mg Cap) 220 mg PO DAILY [facility] Last Admin: 04/12/17 10:18 Dose: 220 mg - Labs Labs: 04/07/17 06:59 04/13/17 07:00 PT 34.9 Seconds (9.9-11.8) H* 04/13/17 07:00 INR 3.23 (0.93-1.08) H 04/13/17 07:00 - Constitutional Appears: Well, Non-toxic, No Acute Distress - Extremities Exam Additional comments: Lower extremity focused exam: Vasc: Non-palpable pedal pulses due to edema b/l, TG warm to warm, CFT < 3 sec to all digits, +1 pitting edema Neuro: grossly diminished Derm: +1 pitting edema to legs bilateral, localized erythema to mid-calf bilateral. Left posterior distal 1/2 of leg superficial ulceration measuring 13 x 6.3cm with minor sanguinous drainage noted. Absent undermining on a granular base with moderate jamila-wound macerations. Anterior leg stable scabs noted. Right distal medial leg, resolved re-epithelialized ulcer base. MUSC: pain on palpation of posterior and medial legs b/l - Neurological Exam Neurological Exam: Alert, Awake, Oriented x3 - Psychiatric Exam Psychiatric exam: Normal Affect, Normal Mood Assessment and Plan - Assessment and Plan (Free Text) Assessment: 56 year old male cellulitis and left superficial venous stasis ulcerations Plan: patient evaluated and seen at bedside with attending, Dr. Daniels Labs and vitals reviewed; afebrile, absent leukocytosis continue IV abx per ID cleansed left lower extremity with saline. Left leg dressed with xeroform, ABD, kerlix, and YAYO Patient encouraged to continue with physical therapy and aggressively attempt to return to ambulation activity. Continue IV antibiotics per ID podiatry will continue to monitor while patient remains in house
[2017-04-13] MEDS: Multivitamin Therapeutic Tab PO SCH (11:44)
[2017-04-13] MEDS: Lidocaine 5% Patch TD SCH (11:44)
[2017-04-13] MEDS: Magnesium Oxide 400 mg Tab UD PO SCH ×2 (11:44→17:27)
[2017-04-13] MEDS: diltiaZEM 180 mg/24 Hours CD Cap PO SCH (11:58)
--- NOTE | 2017-04-13 12:29 | PN ---
DATE: 04/13/2017 SUBJECTIVE: The patient is currently seen on 5R. He is lying supine in bed. He is comfortable. Mcihel th legs are wrapped. He remains on IV fluid hydration and IV antibiotic therapy. MEDICATIONS: Medication list reviewed. The patient is currently on Cardizem, clonidine, Colace, Cou madin, Cymbalta, insulin, Lopressor, Lidoderm, magnesium oxide, meropenem, nystatin, oxycodone, Patan ol eyedrops, Proscar, Protonix, half normal saline 75 mL an hour, Sonata, Synthroid, MultiVites, Tyle nol p.r.n. and zinc. OBJECTIVE: INTAKE AND OUTPUT: Intake 2340, output 3690. VITAL SIGNS: Blood pressure 143/79, temperature 97.4, respiratory rate is 20 with a pulse of 68. HEENT: Shows him to be normocephalic, atraumatic. Conjunctivae are pink. Sclerae are nonicteric. NECK: Supple, no neck vein distention. CHEST: Clear to auscultation and percussion. CARDIOVASCULAR: Shows regular rate and rhythm without murmurs, rubs, or gallops. ABDOMEN: Soft. Moderate obesity. Bowel sounds normal. No rebound, no guarding. EXTREMITIES: Show lower extremities are wrapped with dressing bilaterally from the ankle up to the k nee. Legs are puffy, but no pitting edema. Ulcerations of the lower leg not examined secondary to d ressings that are in place. LABORATORY DATA AND IMAGING: No recent CBC. Chemistry profile: Today's sodium 137, potassium 4.5, chloride 96 with a CO2 of 31, BUN is 41 with a creatinine of 1.7. Baseline BUN is less than 20. Bas naldo creatinine is 1.2. Glucose is 98. Calcium 9.7 with a magnesium of 1.8. Albumin level is 3.9. Urines were unremarkable. Microbiology: Left leg wound ulceration positive for pseudomonas, Esche richia coli and Staph aureus, not methicillin-resistant. Blood cultures are negative at 5 days. ASSESSMENT: Acute renal failure superimposed on chronic kidney disease, likely stage II. This is in the setting of lower extremity stasis dermatitis and infected ulceration of his lower extremity combined with ant ibiotic use. Combined with the use evidence of an angiotensin converting enzyme inhibitor combined w ith mild hypotension. The patient is appropriately receiving IV fluid hydration. I expect his BUN a nd creatinine to drift back toward the normal range. Of note, his abdominal CT scan showed normal ki dneys. Diabetes mellitus. The patient continues on insulin therapy. History of hypertension. Blood pressure controlled on present therapy. History of stasis dermatitis of his lower extremity with leg ulcerations and infection as noted above . The patient is currently continuing on intravenous antibiotic therapy. Duration of antibiotics as per infectious disease. History of anemia, likely secondary to chronic kidney disease, elevated BUN and creatinine and bone m arrow suppression, perhaps from infection. Hypothyroidism. The patient will continue thyroid replacement therapy. PLAN: 1. Would continue IV fluid hydration through the day today. 2. The patient states possible discharge with perhaps antibiotic therapy for home use. Not certain whether he will go home on IV antibiotics or oral antibiotics. 3. Continue sliding scale insulin. 4. Continue to monitor accurate I's and O's. Vijay Gomez MD cc: [phone] TT: 04/13/2017 12:28:34 Confirmation # [id number] Dictation # [id number] mn
[2017-04-13 16:58] VITALS: BP 140/74; O2SAT 97
--- NOTE | 2017-04-13 17:57 | CP.PCM.PN ---
Subjective - Date & Time of Evaluation Date of Evaluation: 04/13/17 Time of Evaluation: 11:10 - Subjective Subjective: Legs feel better, no fevers overnight. No nausea, no diarrhea. Objective - Vital Signs/Intake and Output Vital Signs (last 24 hours): Temp Pulse Resp BP Pulse Ox 98 F 70 20 140/74 97 04/13/17 16:00 04/13/17 17:28 04/13/17 16:00 04/13/17 17:28 04/13/17 16:00 Intake and Output: 04/13/17 04/13/17 06:59 18:59 Intake Total 1700 1320 Output Total 3050 1350 Balance -1350 -30 - Medications Medications: Current Medications Acetaminophen (Tylenol 325mg Tab) 650 mg PO Q6H PRN PRN Reason: Fever >100.4 F Clonidine HCl (Catapres) 0.1 mg PO BID [facility] Last Admin: 04/13/17 17:28 Dose: 0.1 mg Diltiazem HCl (Cardizem Cd) 180 mg PO DAILY [facility] Last Admin: 04/13/17 11:58 Dose: Not Given Docusate Sodium (Colace) 100 mg PO TID [facility] Last Admin: 04/13/17 17:26 Dose: 100 mg Duloxetine HCl (Cymbalta) 40 mg PO DAILY [facility] Last Admin: 04/13/17 11:51 Dose: 40 mg Finasteride (Proscar) 5 mg PO DAILY [facility] Last Admin: 04/13/17 11:42 Dose: 5 mg Meropenem 1g/NS 100mL IVPB (Meropenem 1g/Ns 100ml Ivpb) 1 gm in 100 mls @ 100 mls/hr IVPB Q8 [facility] PRN Reason: Protocol Stop: 04/18/17 14:01 Last Admin: 04/13/17 13:46 Dose: 100 mls/hr Sodium Chloride (Sodium Chloride 0.45%) 1,000 mls @ 75 mls/hr IV .[id number] [facility] Last Admin: 04/13/17 13:43 Dose: 75 mls/hr Insulin Human Lispro (Humalog) 0 units SC ACHS [facility] PRN Reason: Protocol Last Admin: 04/13/17 12:19 Dose: Not Given Levothyroxine Sodium (Synthroid) 75 mcg PO DAILY@0630 [facility] Last Admin: 04/13/17 06:21 Dose: 75 mcg Lidocaine (Lidoderm) 1 ea TD DAILY [facility] Last Admin: 04/13/17 11:44 Dose: 1 ea Magnesium Oxide (Mag-Ox) 400 mg PO BID [facility] Last Admin: 04/13/17 17:27 Dose: 400 mg Metoprolol Tartrate (Lopressor) 25 mg PO DAILY [facility] Last Admin: 04/13/17 11:42 Dose: 25 mg Multivitamins (Thera Tab) 1 tab PO DAILY [facility] Last Admin: 04/13/17 11:44 Dose: 1 tab Nystatin (Nystop Topical Powder) 0 gm TOP Q6H PRN PRN Reason: Rash Last Admin: 04/05/17 10:48 Dose: 1 applic Olopatadine HCl (Patanol 0.1% Opht Soln) 0 ml OU DAILY [facility] Last Admin: 04/12/17 10:19 Dose: 1 drop Oxycodone HCl (Oxycontin Extended Release Tab) 80 mg PO Q6H [facility] Last Admin: 04/13/17 11:42 Dose: 80 mg Oxycodone/Acetaminophen (Percocet 5/325 Mg Tab) 2 tab PO Q4H PRN PRN Reason: Pain, moderate (4-7) Stop: 04/15/17 12:18 Last Admin: 04/13/17 11:39 Dose: 2 tab Pantoprazole Sodium (Protonix Ec Tab) 40 mg PO ACB [facility] Last Admin: 04/13/17 08:51 Dose: 40 mg Warfarin Sodium (Coumadin) 7.5 mg PO 1800 [facility] PRN Reason: Protocol Last Admin: 04/13/17 17:29 Dose: 7.5 mg Zaleplon (Sonata) 10 mg PO HS [facility] Last Admin: 04/12/17 22:00 Dose: Not Given Zinc Sulfate (Zinc Sulfate 220 Mg Cap) 220 mg PO DAILY [facility] Last Admin: 04/13/17 11:43 Dose: 220 mg - Labs Labs: 04/07/17 06:59 04/13/17 07:00 PT 34.9 Seconds (9.9-11.8) H* 04/13/17 07:00 INR 3.23 (0.93-1.08) H 04/13/17 07:00 - Constitutional Appears: Non-toxic, No Acute Distress - Head Exam Head Exam: NORMAL INSPECTION - ENT Exam ENT Exam: Mucous Membranes Moist - Neck Exam Neck Exam: absent: Meningismus - Respiratory Exam Respiratory Exam: Decreased Breath Sounds - Cardiovascular Exam Cardiovascular Exam: +S1, +S2 - GI/Abdominal Exam GI & Abdominal Exam: Soft. absent: Tenderness - Extremities Exam Additional comments: both legs with dressings in place Assessment and Plan - Assessment and Plan (Free Text) Plan: Assessment skin and skin structure infection with bilateral leg infected ulcers in a patient with recurrent leg infections and venous stasis, now growing MSSA and multidrug resistant Pseudomonas and ESBL E. coli S/P wound vacuum placement for upper thigh wounds history of Skin and skin structure infection of the left lower extremity with Pseudomonas, Enterococcus and MRSA in a patient with recurrent left leg infection Morbid obesity with BMI of 43 DM HTN COPD hyopthyroidism bilateral lower extremity swelling due to venous stasis Osteoarthritis Chronic pain syndrome Plan on Merrem (day 8) - target 7-10 days of therapy - since he is improving clinically, may be able to d/c antibiotics by tomorrow there is an increase in Creatinine from 1.2 to 1.4 to 1.7 to 1.8 and now to 1.7 and therefore will continue to hold Colistin will continue to monitor clinically
[2017-04-14] MEDS: oxyCODONE 80 mg ER Tab (oxyCONTIN) PO SCH ×3 (00:29→12:31)
[2017-04-14] MEDS: Oxycodone/Acetaminophen 5/325 mg Tab PO PRN ×3 (00:30→12:35)
[2017-04-14] MEDS: Sodium Chloride 0.45% 1,000 ML IV SCH (05:08)
[2017-04-14] MEDS: Meropenem 1g/NS 100mL IVPB 1 GM/100 ML PIGGYBACK IVPB SCH (05:09)
[2017-04-14] MEDS: Olopatadine 0.1% Opht Sol OU SCH (06:57)
[2017-04-14 07:44] LABS: HEMATOCRIT 38.1 % (42.0-52.0); MEAN CORPUSCULAR HEMOGLOBIN 28.1 pg (25.0-35.0); MEAN CORPUSCULAR HGB CONC 32.3 g/dl (31.0-37.0); MEAN PLATELET VOLUME 12.6 fl (7.0-11.0); RED CELL DISTRIBUTION WIDTH 13.8 % (11.5-14.5); WHITE BLOOD COUNT 5.3 10^3/ul (4.5-11.0)
[2017-04-14] MEDS: Insulin Lispro 1 UNITS/0.01 ML SC SCH ×2 (07:47→11:30)
[2017-04-14 07:49] LABS: BILIRUBIN,TOTAL 0.4 mg/dL (0.2-1.3); CALCIUM 9.8 mg/dL (8.4-10.5); MAGNESIUM 1.8 mg/dL (1.7-2.2); PHOSPHOROUS 3.9 mg/dL (2.5-4.5); POTASSIUM 4.8 mmol/L (3.6-5.0); TOTAL PROTEIN 8.5 g/dL (5.8-8.3)
[2017-04-14 08:08] VITALS: PULSE 62; TEMP 97.6
[2017-04-14] MEDS: Pantoprazole 40 mg EC Tab PO SCH (09:42)
[2017-04-14] MEDS: diltiaZEM 180 mg/24 Hours CD Cap PO SCH (09:51)
[2017-04-14] MEDS: Magnesium Oxide 400 mg Tab UD PO SCH (09:51)
[2017-04-14] MEDS: Lidocaine 5% Patch TD SCH (09:54)
[2017-04-14] MEDS: Multivitamin Therapeutic Tab PO SCH (09:54)
[2017-04-14] MEDS: Levothyroxine 75 MCG TAB PO SCH (09:58)
--- NOTE | 2017-04-14 10:40 | PN ---
DATE: 04/13/2017 SUBJECTIVE: This is a 57-year-old male currently getting antibiotics for his leg cellulitis. He is comfortable, sleeping comfortable, no distress. The patient also has renal insufficiency. He is off Lasix and IV fluids, seen by tiger machine operator. He h as no new complaint today. PHYSICAL EXAMINATION: VITAL SIGNS: Temperature 98, heart rate 70, blood pressure 140/74, respirations 20, saturation 97%. HEAD AND NECK: Normal. No JVD, no thyromegaly. CHEST: Clear, good air entry. CARDIAC: First and second sounds are normal. ABDOMEN: Soft, obese, nontender. EXTREMITIES: Bilateral leg edema, cellulitis. NEUROLOGIC: Normal. LABORATORY STUDY: On 04/13/2017 his laboratory shows sodium 98, blood sugar 98, BUN 41, creatinine 1 .7, sodium 137, potassium 4.5, chloride 96, bicarbonate 31. Also, patient had a PT/INR, the INR 3.23 , which is slightly elevated. IMPRESSION AND PLAN: 1. Cellulitis, both lower extremities. Continue local wound care and IV antibiotic, meropenem. 2. Renal insufficiency. The patient is on IV fluid half normal 75 mL per hour, which his creatinine level went down a little bit better. Would continue current treatment. Hold off on Lasix. 3. Morbid obesity, chronic obstructive pulmonary disease, obstructive sleep apnea. Continue inhaled bronchodilators. Continue BiPAP machine at night, seems to be doing okay. 4. Hypothyroidism, hypertension, right-sided heart failure. Continue current medication. The patie nt given Cardizem, Lasix which has been on hold, and digoxin. 5. Hypothyroidism, chronic back pain, chronic left knee pain, osteoarthritis, knee replacement. Con tinue current pain management as it is. Will follow up clinically. 6. History of deep venous thrombosis, pulmonary embolism. The patient is stable on Coumadin. INR t herapeutic. We will continue to monitor his PT/INR. Patient is noncompliant with the medical recomm endations at patient's need for bariatric surgery has been discussed with him several times, which se ems to be very helpful to his medical condition. Continue current therapy, follow up clinically. Th e patient is on the last day of antibiotic. Probably tomorrow morning will discharge him home. Rina sm[facility] wound care as outpatient, [place] visiting nurse. Resume all his meds. The patient advised no YAYO inhibitors, no lisinopril, Lasix will be held for a couple of more days and will be resumed. Encoura ambulation, physical therapy. Continue current medication. Yvon Gonzalez MD cc: [phone] TT: 04/14/2017 10:39:16 Confirmation # [id number] Dictation # [id number]
--- NOTE | 2017-04-14 12:25 | PN ---
DATE: 04/14/2017 Shortly, the patient is a 57-year-old male with self-reported history of depression and mul tiple medical issues. The patient is morbidly obese, BMI of 43; diabetes, hypertension, COPD, hypoth yroidism, bilateral lower extremity swelling due to venous stasis, osteoarthritis, chronic pain syndr ome. The patient was admitted on the medical side for evaluation of lower extremity cellulitis and w ounds. The patient was on contact isolation. Psych consult was involved because patient was feeling depressed as well as had passive wish to be . This sign writer hand initiated Cymbalta. The patient was tolerating that medication well. Right now, he is on 40 mg. The patient also was started on Sonata 10 mg. The patient was seen today for followup. The patient is medically stable. This sign writer hand spoke with Dr Sheila Spangler. As per Dr. Spangler, patient is off contact isolation and it will be not a problem to transfer patient to the psychiatric inpatient unit. The patient will be off antibiotics. This sign writer hand is pillo kiran for report from Dr. Spangler. Meanwhile, going back to the patient's presentation - the patient pr esented to be depressed. The patient reported that he feels hopeless and helpless and wants to get b lucio and wants to be admitted to the psychiatric inpatient unit. VITAL SIGNS: Stable. Temperature 97.6, pulse is 62, respirations 20, oxygen saturation is 97. MEDICATIONS: Reviewed. The patient is on Tylenol, Catapres 0.1 twice a day, Cardizem, Colace, Cymba lta 40 mg daily, Proscar, Synthroid, Lidoderm, magnesium oxide, meropenem will be discontinued, metop rolol, multivitamins, nystatin, oxycodone, Percocet, warfarin, Sonata 10 mg at the nighttime, zinc mathis lfate. LABORATORY DATA: Reviewed from today. Most recent was from today. Hemoglobin 12.3, hematocrit 38.1 . Coagulation reviewed. Chemistry reviewed from today. BUN and creatinine are 36 and 1.5. Urinaly sis was done on 04/13. Microbiology: Wound culture is pseudomonas, E. coli, and Staph aureus. MENTAL STATUS EXAMINATION: The patient appears to be alert and oriented, pleasant. Intermittent eye contact. Mood described as depressed and hopeless, "I'm afraid to go back home." Affect was flat, mood congruent. Speech was normal rate, tone, quality, and quantity. Thought process seems to be co herent and goal directed. Thought content: The patient denied visual, auditory, tactile hallucinati ons; denied paranoid ideation. The patient has passive wish to be , but denied any intent or refugio n to kill himself. The patient reported to feel hopeless. Insight and judgment are improving. Impu lses are well controlled. IMPRESSION: Rule out major depressive disorder, rule out mood disorder due to general medical condit ion. The patient has multiple medical issues. See above. PLAN: The patient was offered psychiatric inpatient admission. The patient is willing to sign himse lf in. This sign writer hand will continue Taz with a plan to increase that further. The patient is on S onata. The patient needs to have physical therapy evaluation. The patient will be followed up by Dr Sheila Gonzalez on the medical side. This sign writer hand had prolonged conversation with Dr. Spangler. The patient is off contact isolation, but his lower extremity wounds have to be covered with a bandage. The patien t also will be off antibiotics as per ID report. Moreover, patient needs to have social welfare research worker evalu ation. We will follow up on the patient on the psychiatric inpatient unit. Thank you very much for letting me participate in the care of your patient. Tania Gramajo MD cc: [phone] TT: 04/14/2017 12:24:05 Confirmation # [id number] Dictation # [id number] isrrael
--- NOTE | 2017-04-14 13:17 | DS ---
A 57-year-old male came in with bilateral leg cellulitis. Seen by ID consult, Dr. Blanco, and po diatry consult, Dr. Daniels. The patient was given local wound care, was given culture which shows M RSA given IV meropenem, initially vancomycin, then finally he finished almost 2 weeks of IV juan jose openem or more. The patient is stable. He has no fever, clinically better. INR is therapeutic for his DVT and hemodynamically stable and will be discharged home. PHYSICAL EXAMINATION: VITAL SIGNS: Temperature 97.6, heart rate 62, blood pressure , sat 97% on room air. HEAD AND NECK: Normal. No JVD, no thyromegaly. CHEST: Clear. CARDIAC: First sound, second sound normal. ABDOMEN: Soft, obese, nontender. EXTREMITIES: Bilateral leg cellulitis, which is wrapped by gauze and seems improving. LABORATORY DATA: White count 5.3, hemoglobin 12.3, hematocrit 38.1, platelets 163. Chemistry: Sodi um 137, potassium 4.8, chloride 97, bicarb 31, BUN 36, creatinine 1.5. Liver function test is normal . DISCHARGE DIAGNOSES: 1. Bilateral leg cellulitis. Continue local wound care. 2. Chronic deep venous thrombosis. Continue Coumadin. INR is above therapeutic range. We will hol d Coumadin for 1 more day and resume it and will monitor PT/INR as outpatient. 3. Chronic obstructive pulmonary disease, obstructive sleep apnea. The patient advised to follow up with Dr. Santoyo for pulmonary consult for sleep studies and also continue inhaled bronchodilators. 4. Hypertension, congestive heart failure. 5. Hypothyroidism. 6. Morbid obesity. 7. Chronic back pain, chronic left knee pain. PLAN: 1. Continue his pain medicine, oxycodone and OxyContin. The patient referred several times to pain management, noncompliant. 2. Anxiety, insomnia. We are going to give him Sonata. 3. Morbid obesity. The patient advised to see bariatric surgeon, noncompliant. We will give him 1 more chance. 4. Acute renal insufficiency. The patient does have a history of renal failure. Now, creatinine we nt down to 1.5. We will continue to hold Lasix for 2 more days, then resume it. Follow up with Dr. Gomez as outpatient. The patient should follow up with Dr. Blue or Dr. Gomez for renal failure and Dr. Daniels for his bilateral [facility]. We will continue current thera py and encourage the patient to go under bariatric surgery to help his general conditions. MEDICATION ON DISCHARGE: Diltiazem 180 once a day, clonidine 0.1 mg p.o. b.i.d., Colace 100 b.i.d., Coumadin 7.5 once a day, Cymbalta 40 daily, lidocaine locally, Lopressor 25 p.o. once a day, metoprol ol tartrate, mag oxide 400 b.i.d., nystatin powder, oxycodone he is getting as outpatient 15 mg every 4 hours p.r.n. because he moves around and he feels more pain and continue OxyContin every 8 hours. The patient also getting Proscar 5 mg daily, Protonix 40 once a day, Sonata 10 mg p.o. at bedtime, S ynthroid 75 mcg once a day, multivitamins once a day, zinc sulfate 220 mg capsules p.o. daily, Tyleno l p.r.n. Discharge home. Follow up with the consultants. See him in our office within a week. Will repeat P T/INR and will follow up clinically. The patient advised fall precautions, use walker. Several time s we discussed with him about snf placement. He does not want to apply for Medicaid. He do es not want to give up for snf placement and patient for bariatric surgery to im prove his clinical condition or he keeps coming to the hospital. Yvon Gonzalez MD cc: [phone] TT: 04/14/2017 13:17:37 en
--- NOTE | 2017-04-14 15:11 | PN ---
DATE: 04/14/2017 SUBJECTIVE: The patient is currently seen on 5R. IV fluids have been discontinued. The patient has completed a course of IV antibiotic therapy. According to patient, he is depressed and he agreed to go to psychiatry. MEDICATIONS: Medication list reviewed. The patient is currently on Cardizem, Catapres, Colace, Coum alondra, Cymbalta, insulin, Lidoderm, Lopressor, mag oxide, meropenem has been discontinued, nystatin, O xyContin, eyedrops, Percocet, Proscar, Protonix, Sonata, Synthroid, multivitamins, Tylenol, and zin c. OBJECTIVE: VITAL SIGNS: Blood pressure 140/74, temperature 97.6, respiratory rate is 20 with a pulse of 62. HEENT: Shows him to be normocephalic, atraumatic. Conjunctivae are pink. Sclerae are nonicteric. NECK: Supple, no neck vein distention. CHEST: Clear to auscultation and percussion. CARDIOVASCULAR: Shows a regular rate and rhythm without audible murmurs, rubs, or gallops. ABDOMEN: Soft. Moderate obesity. Bowel sounds normal. No rebound, no guarding. EXTREMITIES: Lower extremities are wrapped bilaterally. Legs are puffy, but no pitting edema. The patient has ulcerations of the lower leg which were not examined secondary to the dressings not being removed. LABORATORY DATA AND IMAGING: CBC: White blood cell count today down to 5.3, hemoglobin 12.3 stable, platelet count is 163,000. Coags: INR is 3.23 with a PT of 34.9. Chemistries show normal electrol ytes. BUN is down to 36, creatinine is down to 1.5. Creatinine is down from a high of 1.8; his base line is 1.2. BUN is down from a high of 43 with a baseline of less than 20. Microbiology: Leg cult ures were positive for pseudomonas, E. coli and Staph aureus. ASSESSMENT: Status post acute renal failure superimposed on chronic kidney disease, stage II. This is in the set ting of volume depletion, stasis dermatitis, mild hypotension and the use of an angiotensin convertin g enzyme inhibitor. The patient had received adequate amounts of hydration. His BUN and creatinine have trended back to baseline. His kidneys were normal on CT scan. Diabetes mellitus. The patient continues on insulin. History of hypertension. Blood pressure controlled on present medical therapy. History of stasis dermatitis, lower extremity leg ulceration and infection, polymicrobial in nature. The patient has completed a course of antibiotic therapy. He will likely receive local wound care. History of anemia. Hemoglobin stable at 12.3. Hypothyroidism. The patient will continue thyroid replacement therapy. Mild to moderate depression. The patient agrees to go to psychiatry for further evaluation. PLAN: 1. IV fluids have been discontinued. IV antibiotics have been discontinued. The patient is stable from a renal standpoint. 2. We will not see patient on psychiatry unless we are reconsulted. Vijay Gomez MD cc: [phone] TT: 04/14/2017 15:10:30 Confirmation # [id number] Dictation # [id number] mn
--- NOTE | 2017-04-14 16:01 | CP.PCM.PN ---
<Dipti Loyd - Last Filed: 04/14/17 15:59> Subjective - Date & Time of Evaluation Date of Evaluation: 04/14/17 Time of Evaluation: 15:59 - Subjective Subjective: 56 year old male was seen at bedside with attending, Dr. Zavaleta concerning left leg venous stasis ulcerations. Pt has remained confined to bed and has not ambulated since admission. Denies any acute events overnight. He denies n/f/v/c/ d/sob. patient states he will be admitting himself into psych. Objective - Vital Signs/Intake and Output Vital Signs (last 24 hours): Temp Pulse Resp BP Pulse Ox 97.6 F 62 20 140/74 97 04/14/17 07:30 04/14/17 07:30 04/14/17 07:30 04/13/17 17:28 04/14/17 07:30 Intake and Output: 04/14/17 04/14/17 06:59 18:59 Intake Total 1960 640 Output Total 1900 1300 Balance 60 -660 - Medications Medications: Current Medications Acetaminophen (Tylenol 325mg Tab) 650 mg PO Q6H PRN PRN Reason: Fever >100.4 F Clonidine HCl (Catapres) 0.1 mg PO BID [facility] Last Admin: 04/14/17 09:52 Dose: 0.1 mg Diltiazem HCl (Cardizem Cd) 180 mg PO DAILY [facility] Last Admin: 04/14/17 09:51 Dose: 180 mg Docusate Sodium (Colace) 100 mg PO TID [facility] Last Admin: 04/14/17 15:33 Dose: Not Given Duloxetine HCl (Cymbalta) 40 mg PO DAILY [facility] Last Admin: 04/14/17 09:51 Dose: 40 mg Finasteride (Proscar) 5 mg PO DAILY [facility] Last Admin: 04/14/17 09:42 Dose: 5 mg Meropenem 1g/NS 100mL IVPB (Meropenem 1g/Ns 100ml Ivpb) 1 gm in 100 mls @ 100 mls/hr IVPB Q8 [facility] PRN Reason: Protocol Stop: 04/18/17 14:01 Last Admin: 04/14/17 05:09 Dose: 100 mls/hr Sodium Chloride (Sodium Chloride 0.45%) 1,000 mls @ 75 mls/hr IV .[id number] [facility] Last Admin: 04/14/17 05:08 Dose: 75 mls/hr Insulin Human Lispro (Humalog) 0 units SC ACHS [facility] PRN Reason: Protocol Last Admin: 04/14/17 11:30 Dose: Not Given Levothyroxine Sodium (Synthroid) 75 mcg PO DAILY@0630 [facility] Last Admin: 04/14/17 09:58 Dose: 75 mcg Lidocaine (Lidoderm) 1 ea TD DAILY [facility] Last Admin: 04/14/17 09:54 Dose: 1 ea Magnesium Oxide (Mag-Ox) 400 mg PO BID [facility] Last Admin: 04/14/17 09:51 Dose: 400 mg Metoprolol Tartrate (Lopressor) 25 mg PO DAILY [facility] Last Admin: 04/14/17 09:42 Dose: 25 mg Multivitamins (Thera Tab) 1 tab PO DAILY [facility] Last Admin: 04/14/17 09:54 Dose: 1 tab Nystatin (Nystop Topical Powder) 0 gm TOP Q6H PRN PRN Reason: Rash Last Admin: 04/05/17 10:48 Dose: 1 applic Olopatadine HCl (Patanol 0.1% Opht Soln) 0 ml OU DAILY [facility] Last Admin: 04/14/17 06:57 Dose: 1 drop Oxycodone HCl (Oxycontin Extended Release Tab) 80 mg PO Q6H [facility] Last Admin: 04/14/17 12:31 Dose: 80 mg Oxycodone/Acetaminophen (Percocet 5/325 Mg Tab) 2 tab PO Q4H PRN PRN Reason: Pain, moderate (4-7) Stop: 04/15/17 12:18 Last Admin: 04/14/17 12:35 Dose: 2 tab Pantoprazole Sodium (Protonix Ec Tab) 40 mg PO ACB [facility] Last Admin: 04/14/17 09:42 Dose: 40 mg Warfarin Sodium (Coumadin) 7.5 mg PO 1800 [facility] PRN Reason: Protocol Last Admin: 04/13/17 17:29 Dose: 7.5 mg Zaleplon (Sonata) 10 mg PO HS [facility] Last Admin: 04/13/17 21:39 Dose: 10 mg Zinc Sulfate (Zinc Sulfate 220 Mg Cap) 220 mg PO DAILY [facility] Last Admin: 04/14/17 09:54 Dose: 220 mg - Labs Labs: 04/14/17 07:00 04/14/17 07:00 PT 34.9 Seconds (9.9-11.8) H* 04/13/17 07:00 INR 3.23 (0.93-1.08) H 04/13/17 07:00 - Constitutional Appears: Well, Non-toxic, No Acute Distress - Extremities Exam Additional comments: Lower extremity focused exam: Vasc: Non-palpable pedal pulses due to edema b/l, TG warm to warm, CFT < 3 sec to all digits, +1 pitting edema Neuro: grossly diminished Derm: +1 pitting edema to legs bilateral, localized erythema to mid-calf bilateral. Left posterior distal 1/2 of leg superficial ulceration measuring 13 x 6.3cm with minor sanguinous drainage noted. Absent undermining on a granular base with moderate jamila-wound macerations. Anterior leg stable scabs noted. Right distal medial leg, resolved re-epithelialized ulcer base. MUSC: pain on palpation of posterior and medial legs b/l - Neurological Exam Neurological Exam: Alert, Awake, Oriented x3 - Psychiatric Exam Psychiatric exam: Normal Affect, Normal Mood Assessment and Plan - Assessment and Plan (Free Text) Assessment: 56 year old male cellulitis and left superficial venous stasis ulcerations Plan: patient evaluated and seen at bedside with attending, Dr. Zavaleta Labs and vitals reviewed; afebrile, absent leukocytosis continue IV abx per ID cleansed left lower extremity with saline. Left leg dressed with xeroform, ABD, kerlix, and YAYO right leg redressed with YAYO bandage Patient encouraged to continue with physical therapy and aggressively attempt to return to ambulation activity. Continue IV antibiotics per ID podiatry will continue to monitor while patient remains in house <Parish Zavaleta - Last Filed: 04/16/17 11:23> Objective - Vital Signs/Intake and Output Vital Signs (last 24 hours): Temp Pulse Resp BP Pulse Ox 97.6 F 62 20 140/74 97 04/14/17 07:30 04/14/17 07:30 04/14/17 07:30 04/13/17 17:28 04/14/17 07:30 - Labs Labs: 04/14/17 07:00 04/14/17 07:00 PT 34.9 Seconds (9.9-11.8) H* 04/13/17 07:00 INR 3.23 (0.93-1.08) H 04/13/17 07:00 Attending/Attestation - Attestation I have personally seen and examined this patient.: Yes I have fully participated in the care of the patient.: Yes I have reviewed all pertinent clinical information, including history, physical exam and plan: Yes
--- NOTE | 2017-04-14 20:06 | CP.PCM.PN ---
Subjective - Date & Time of Evaluation Date of Evaluation: 04/14/17 Time of Evaluation: 11:40 - Subjective Subjective: Comfortable, afebrile, not in distress. Objective - Vital Signs/Intake and Output Vital Signs (last 24 hours): Temp Pulse Resp BP Pulse Ox 97.6 F 62 20 140/74 97 04/14/17 07:30 04/14/17 07:30 04/14/17 07:30 04/13/17 17:28 04/14/17 07:30 Intake and Output: 04/14/17 04/15/17 18:59 06:59 Intake Total 640 Output Total 1300 Balance -660 - Labs Labs: 04/14/17 07:00 04/14/17 07:00 PT 34.9 Seconds (9.9-11.8) H* 04/13/17 07:00 INR 3.23 (0.93-1.08) H 04/13/17 07:00 - Constitutional Appears: Non-toxic, No Acute Distress - Head Exam Head Exam: NORMAL INSPECTION - Neck Exam Neck Exam: absent: Meningismus - Respiratory Exam Respiratory Exam: Decreased Breath Sounds - Cardiovascular Exam Cardiovascular Exam: +S1, +S2 - GI/Abdominal Exam GI & Abdominal Exam: Soft. absent: Tenderness - Extremities Exam Additional comments: both legs with dressings in place Assessment and Plan - Assessment and Plan (Free Text) Plan: Assessment skin and skin structure infection with bilateral leg infected ulcers in a patient with recurrent leg infections and venous stasis, now growing MSSA and multidrug resistant Pseudomonas and ESBL E. coli S/P wound vacuum placement for upper thigh wounds history of Skin and skin structure infection of the left lower extremity with Pseudomonas, Enterococcus and MRSA in a patient with recurrent left leg infection Morbid obesity with BMI of 43 DM HTN COPD hyopthyroidism bilateral lower extremity swelling due to venous stasis Osteoarthritis Chronic pain syndrome Plan on Merrem (day 9) - target 7-10 days of therapy - since he is improving clinically, may be able to d/c antibiotics by today; as long as the patient's wounds are covered, and the patient has been on antibiotics, patient should be ok to be in the Psych unit creatinine is improving
== END 2017-04-14 17:27 | DRG 603 ==
LOC: ED 20:28 → ERH 23:10 → 5RSO 04-01 02:35
PROVIDERS: ADMIT Hospitalist; ATTEND Internal Medicine
DX: L03.115 Cellulitis of right lower limb (principal); I13.2 Hypertensive heart and chronic kidney disease with heart failure and with stage 5 chronic kidney disease, or end stage renal disease; N17.9 Acute kidney failure, unspecified; L89.319 Pressure ulcer of right buttock, unspecified stage; I50.30 Unspecified diastolic (congestive) heart failure; E11.22 Type 2 diabetes mellitus with diabetic chronic kidney disease; I82.509 Chronic embolism and thrombosis of unspecified deep veins of unspecified lower extremity; Z68.43 Body mass index [BMI] 50.0-59.9, adult; L97.829 Non-pressure chronic ulcer of other part of left lower leg with unspecified severity; L03.116 Cellulitis of left lower limb; E11.622 Type 2 diabetes mellitus with other skin ulcer; L89.899 Pressure ulcer of other site, unspecified stage; N18.2 Chronic kidney disease, stage 2 (mild); G89.4 Chronic pain syndrome; J44.9 Chronic obstructive pulmonary disease, unspecified; F32.9 Major depressive disorder, single episode, unspecified; F06.30 Mood disorder due to known physiological condition, unspecified; I87.8 Other specified disorders of veins; E03.9 Hypothyroidism, unspecified; B96.5 Pseudomonas (aeruginosa) (mallei) (pseudomallei) as the cause of diseases classified elsewhere; E66.01 Morbid (severe) obesity due to excess calories; Z96.653 Presence of artificial knee joint, bilateral; G47.33 Obstructive sleep apnea (adult) (pediatric); E78.5 Hyperlipidemia, unspecified; M19.90 Unspecified osteoarthritis, unspecified site; F41.9 Anxiety disorder, unspecified; A49.01 Methicillin susceptible Staphylococcus aureus infection, unspecified site; E86.9 Volume depletion, unspecified; N40.0 Benign prostatic hyperplasia without lower urinary tract symptoms; D63.1 Anemia in chronic kidney disease; G47.00 Insomnia, unspecified; B96.20 Unspecified Escherichia coli [E. coli] as the cause of diseases classified elsewhere; Z79.01 Long term (current) use of anticoagulants; Z91.14 Patient's other noncompliance with medication regimen; Z79.4 Long term (current) use of insulin; Z86.711 Personal history of pulmonary embolism

== ENCOUNTER 2017-04-14 17:15 | Inpatient (IN) | payer MEDICARE, OTHER ==
[2017-04-14 18:11] VITALS: BMI 51.7
[2017-04-14] MEDS ORDERED: Nystatin 100,000 Units/gm Topical Pow(15 gm) TOP PRN (18:21)
[2017-04-14] MEDS ORDERED: Magnesium Hydroxide Susp 30 ml UD PO PRN (18:30)
[2017-04-14] MEDS ORDERED: Alum-Mag Hydrox-Simethicone Susp (30 mL) PO PRN (18:30)
[2017-04-14] MEDS: oxyCODONE 80 mg ER Tab (oxyCONTIN) PO SCH (19:19)
[2017-04-14] MEDS: Oxycodone/Acetaminophen 5/325 mg Tab PO PRN (19:19)
[2017-04-14] MEDS: Magnesium Oxide 400 mg Tab UD PO SCH (19:20)
--- NOTE | 2017-04-14 20:12 | PCM.BM ---
Treatment Plan Nursing - Problems identified on initial assessmt activity intolerance Time Initiated: 20:00 Assessment reference: NA Status: Active self care defici Time Initiated: 20:00 Assessment reference: NA Status: Active social isolation Time Initiated: 20:00 Assessment reference: NA Status: Active hopelessness Time Initiated: 20:00 Assessment reference: NA Status: Active - Milieu Protocol Maintain good personal hygiene: daily Encourage regular showers, daily Assist patient to perform ADL's, every shift Remind patient to perform daily oral care Maintain personal safety: daily Educate patient to report safety concerns to staff, daily Monitor environment for contraband/sharps Medication safety: Monitor for expected outcome, potential side effects: daily, Assess barriers to learning: daily, Assess readiness for medication education: daily
--- NOTE | 2017-04-14 20:54 | PCM.BM ---
Treatment Plan Nursing - Problems identified on initial assessmt activity intolerance Time Initiated: 20:00 Assessment reference: NA Status: Active self care defici Time Initiated: 20:00 Assessment reference: NA Status: Active social isolation Time Initiated: 20:00 Assessment reference: NA Status: Active hopelessness Time Initiated: 20:00 Assessment reference: NA Status: Active Treatment team patient informa Patient Assests: cooperative, educated, good support system, cognitively intact Patient Liabilities: live alone, medical problems, other (obesity) - Milieu Protocol Maintain good personal hygiene: daily Encourage regular showers, daily Assist patient to perform ADL's, every shift Remind patient to perform daily oral care Maintain personal safety: daily Educate patient to report safety concerns to staff, daily Monitor environment for contraband/sharps Medication safety: Monitor for expected outcome, potential side effects: daily, Assess barriers to learning: daily, Assess readiness for medication education: daily
--- NOTE | 2017-04-14 20:55 | PCM.BM ---
<Tania Gramajo A - Last Filed: 04/15/17 09:38> DSM5-Treatment Plan - Diagnosis (1) MDD (major depressive disorder) Status: Acute Interventions: 04/15/17 09:39 * Assess/adjust medications daily and /or as needed * See patient on an individual basis 7x/week to assess symptoms of depression * Monitor for side effects & effectiveness of medications * compliance with meds and f/u appts * suicide and homicide prevention * supportive therapy * CBT (as outpatient) 04/15/17 09:41 (2) Mood disorder due to a general medical condition Status: Acute Interventions: 04/15/17 09:40 pt will be seen by PCP daily meds will be adjusted pt has a lot of medical issues (obesity, LE stasis and cellulitis, decubiti) PT intervention healthy diet 04/15/17 09:44 (3) NATHAN (generalized anxiety disorder) Status: Acute Interventions: 04/15/17 09:44 * Assess/adjust medications daily and /or as needed * See patient on an individual basis 7x/week to assess symptoms of anxiety * Educate patient regarding benefits, side effects and risks of prescribed medications * CBT, meds and f/u compliance * supportive therapy (4) Anxiety disorder due to general medical condition Status: Acute Interventions: 04/15/17 09:45 pt will be seen by PCP daily meds will be adjusted pt has a lot of medical issues (obesity, LE stasis and cellulitis, decubiti) PT intervention healthy diet <Consuelo Galeano - Last Filed: 04/15/17 16:45> Treatment Plan Problems - Problems identified on initial assessmt social isolation Date Initiated: 04/15/17 Time Initiated: 10:12 Assessment reference: SW hopelessness Date Initiated: 04/15/17 Time Initiated: 10:12 Assessment reference: SW Family Contact Family involvement: Patient does not wish Family/SO involvement Family contact: Telephone contact initiated by staff - Outside Agency [facility] Care involvment: Not involved <Anamaria Mendoza - Last Filed: 04/15/17 17:00> Treatment Plan Problems - Problems identified on initial assessmt activity intolerance Date Initiated: 04/14/17 Time Initiated: 20:00 Assessment reference: NA Status: Active Priority: 1 self care defici Date Initiated: 04/14/17 Time Initiated: 20:00 Assessment reference: NA Status: Active Priority: 2 social isolation Date Initiated: 04/14/17 Time Initiated: 20:00 Assessment reference: NA Status: Active Priority: 3 hopelessness Date Initiated: 04/14/17 Time Initiated: 20:00 Assessment reference: NA Status: Active Priority: 4 Treatment team patient informa Patient Assests: cooperative, educated, good support system, cognitively intact Patient Liabilities: live alone, medical problems, other (obesity) - Milieu Protocol Maintain good personal hygiene: daily Encourage regular showers, daily Assist patient to perform ADL's, every shift Remind patient to perform daily oral care Maintain personal safety: daily Educate patient to report safety concerns to staff, daily Monitor environment for contraband/sharps Medication safety: Monitor for expected outcome, potential side effects: daily, Assess barriers to learning: daily, Assess readiness for medication education: daily Family Contact - Goals for Treatment Patient goals for treatment: to get well Discharge/Continuing Care - Education Needs Education Needs: Patient Medication, Patient Diagnosis/Disease Process, Patient Coping Skills, Patient Community resources, Patient Activities of Daily Living, Patient Pain, Patient Health Practices/Safety, Patient Personal Hygiene/Grooming , Patient Aftercare Safety Plan - Discharge Discharge Criteria: Ability to care for self, Reduction of target symptoms Discharge to:: Home - Treatment Team Participation Discussed with Family/SO: No Was Patient/Family/SO present at Treatment Team Meeting: Yes
[2017-04-14] MEDS: Insulin Lispro (humaLOG) LOW Coverage SC SCH (21:41)
[2017-04-15] MEDS: oxyCODONE 80 mg ER Tab (oxyCONTIN) PO SCH ×4 (01:30→19:48)
[2017-04-15] MEDS: Oxycodone/Acetaminophen 5/325 mg Tab PO PRN ×4 (01:31→19:47)
[2017-04-15] MEDS: Levothyroxine 75 MCG TAB PO SCH (06:16)
[2017-04-15] MEDS: Pantoprazole 40 mg EC Tab PO SCH (06:16)
[2017-04-15 08:15] LABS: INR 3.78 (0.93-1.08)
[2017-04-15 08:35] LABS: CHOLESTEROL 193 mg/dL (130-200); FREE T4 1.26 ng/dL (0.78-2.19)
[2017-04-15 08:49] LABS: THYROID STIMULATING HORMONE 5.04 mIU/mL (0.46-4.68)
[2017-04-15] MEDS: diltiaZEM 180 mg/24 Hours CD Cap PO SCH (09:42)
[2017-04-15] MEDS: Multivitamin With Minerals Tab PO SCH (09:43)
[2017-04-15] MEDS: Magnesium Oxide 400 mg Tab UD PO SCH ×2 (09:43→17:23)
[2017-04-15] MEDS: Lidocaine 5% Patch TD SCH (09:44)
[2017-04-15] MEDS: Olopatadine 0.1% Opht Sol OU SCH (09:45)
[2017-04-15] MEDS: Insulin Lispro (humaLOG) LOW Coverage SC SCH ×4 (10:28→21:36)
--- NOTE | 2017-04-15 14:00 | CP.PCM.CON ---
History of Present Illness - History of Present Illness History of Present Illness: 56 year old male with PMH of morbid obesity, CHF, HTN, HLD, DM, hypothyroidism , chronic pain, and pressure ulcers of the thighs, buttocks, and lower legs was seen at bedside in psych concerning left leg venous stasis ulcerations. Patient has been treated since 03/31/17 upon admission to the hospital for same concern. Patient has remained confined to bed since admission and has refused PT in the past. Patient states that he is now ready to work with PT to get him in and out of bed. He states that he would like to leave the psych unit tomorrow because he is bored. Denies any acute events overnight. He denies n/f/v/c/d/sob. Review of Systems - Constitutional Constitutional: As Per HPI Past Patient History - Infectious Disease Hx of Infectious Diseases: None - Tetanus Immunizations Tetanus Immunization: Unknown - Past Medical History & Family History Past Medical History?: Yes - Past Social History Smoking Status: Never Smoked - CARDIAC Hx Congestive Heart Failure: Yes Hx Hypertension: Yes - PULMONARY Hx Chronic Obstructive Pulmonary Disease (COPD): Yes - NEUROLOGICAL Hx Neurological Disorder: No - HEENT Hx HEENT Problems: No - RENAL Hx Chronic Kidney Disease: Yes (required HD in 2016 briefly) - ENDOCRINE/METABOLIC Hx Hypothyroidism: Yes - HEMATOLOGICAL/ONCOLOGICAL Hx Blood Disorders: No - INTEGUMENTARY Hx Dermatological Problems: Yes Hx Cellulitis: Yes (BLE) Other/Comment: both leggs discolored - MUSCULOSKELETAL/RHEUMATOLOGICAL Hx Arthritis: Yes - GASTROINTESTINAL Hx Gastrointestinal Disorders: Yes - GENITOURINARY/GYNECOLOGICAL Hx Genitourinary Disorders: No - PSYCHIATRIC Hx Substance Use: No - SURGICAL HISTORY Hx Surgeries: Yes Hx Orthopedic Surgery: Yes (bilateral knee replacement) Other/Comment: total left knee - 1998. right ankle screws - 1987. right hip jason - 1982 - ANESTHESIA Hx Anesthesia: Yes Hx Anesthesia Reactions: No Hx Malignant Hyperthermia: No Meds Allergies/Adverse Reactions: Allergies Allergy/AdvReac Type Severity Reaction Status Date / Time No Known Allergies Allergy Verified 04/14/17 19:57 - Medications Medications: Current Medications Acetaminophen (Tylenol 325mg Tab) 650 mg PO Q4 PRN PRN Reason: Pain, moderate (4-7) Last Admin: 04/15/17 10:32 Dose: 650 mg Al Hydrox/Mg Hydrox/Simethicone (Maalox Plus 30 Ml) 30 ml PO DAILY PRN PRN Reason: Upset Stomach Arformoterol Tartrate (Brovana) 15 mcg IH [id number] [facility] Budesonide (Pulmicort Respules) 0.25 mg IH [id number] [facility] Clonidine HCl (Catapres) 0.1 mg PO BID [facility] Last Admin: 04/15/17 09:43 Dose: 0.1 mg Diltiazem HCl (Cardizem Cd) 180 mg PO DAILY [facility] Last Admin: 04/15/17 09:42 Dose: 180 mg Docusate Sodium (Colace) 100 mg PO TID [facility] Last Admin: 04/15/17 09:41 Dose: 100 mg Duloxetine HCl (Cymbalta) 40 mg PO DAILY [facility] Last Admin: 04/15/17 09:41 Dose: 40 mg Finasteride (Proscar) 5 mg PO DAILY [facility] Last Admin: 04/15/17 09:43 Dose: 5 mg Insulin Human Lispro (Humalog Low) 1 units SC ACHS [facility] PRN Reason: Protocol Last Admin: 04/15/17 13:05 Dose: 1 units Levothyroxine Sodium (Synthroid) 75 mcg PO 0600 [facility] Last Admin: 04/15/17 06:16 Dose: 75 mcg Lidocaine (Lidoderm) 2 ea TD DAILY [facility] Last Admin: 04/15/17 09:44 Dose: 2 ea Magnesium Hydroxide (Milk Of Magnesia) 30 ml PO DAILY PRN PRN Reason: Constipation Magnesium Oxide (Mag-Ox) 400 mg PO BID [facility] Last Admin: 04/15/17 09:43 Dose: 400 mg Metoprolol Tartrate (Lopressor) 25 mg PO DAILY [facility] Last Admin: 04/15/17 09:42 Dose: 25 mg Multivitamins/Minerals (Therapeutic-M Tab) 1 tab PO 0800 [facility] Last Admin: 04/15/17 09:43 Dose: 1 tab Nystatin (Nystop Topical Powder) 1 gm TOP Q6H PRN PRN Reason: for redness on abdominal folds Olopatadine HCl (Patanol 0.1% Opht Soln) 1 ml OU DAILY [facility] Last Admin: 04/15/17 09:45 Dose: 1 drop Oxycodone HCl (Oxycontin Extended Release Tab) 80 mg PO Q6H [facility] Last Admin: 04/15/17 13:03 Dose: 80 mg Oxycodone/Acetaminophen (Percocet 5/325 Mg Tab) 2 tab PO Q4H PRN PRN Reason: Pain, severe (8-10) Stop: 04/17/17 18:26 Last Admin: 04/15/17 13:04 Dose: 2 tab Pantoprazole Sodium (Protonix Ec Tab) 40 mg PO 0600 [facility] Last Admin: 04/15/17 06:16 Dose: 40 mg Warfarin Sodium (Coumadin) 7.5 mg PO 1800 [facility] PRN Reason: Protocol Zaleplon (Sonata) 10 mg PO HS [facility] Last Admin: 04/14/17 21:41 Dose: 10 mg Zinc Sulfate (Zinc Sulfate 220 Mg Cap) 220 mg PO DAILY [facility] Physical Exam - Constitutional Appears: Well, Non-toxic, No Acute Distress - Extremities Exam Additional comments: Lower extremity focused exam: Vasc: Non-palpable pedal pulses due to edema b/l, TG warm to warm, CFT < 3 sec to all digits, +1 pitting edema Neuro: grossly diminished Derm: +1 pitting edema to legs bilateral, localized erythema to mid-calf bilateral. Left posterior distal 1/2 of leg superficial ulceration measuring 13 x 6.3cm with minor sanguinous drainage noted. Absent undermining on a granular base with moderate jamila-wound macerations. Anterior leg stable scabs noted. Right distal medial leg, resolved re-epithelialized ulcer base. MUSC: pain on palpation of posterior and medial legs b/l - Neurological Exam Neurological exam: Alert, Oriented x3 - Psychiatric Exam Psychiatric exam: Normal Affect, Normal Mood Results - Vital Signs Recent Vital Signs: Last Vital Signs Temp 97.8 F 04/15/17 07:33 Pulse 54 L 04/15/17 09:43 Resp 20 04/15/17 07:33 BP 137/86 04/15/17 09:43 Pulse Ox - Labs Labs: Laboratory Results - last 24 hr 04/15/17 04/15/17 04/15/17 07:30 07:30 07:30 PT 40.8 H* INR 3.78 H* Triglycerides 291 H Cholesterol 193 LDL Cholesterol Direct 104 HDL Cholesterol 31 Free T4 1.26 TSH 3rd Generation 5.04 H Assessment & Plan - Assessment and Plan (Free Text) Assessment: 56 year old male seen at bedside in psych for left superficial venous stasis ulcerations Plan: patient evaluated and seen at bedside discussed in detail with attending Dr. Daniels Labs and vitals reviewed; afebrile, absent leukocytosis continue IV abx per ID-imipenem cleansed left lower extremity with saline. Left leg dressed with xeroform, ABD, kerlix, and YAYO right leg YAYO bandage left intact Patient encouraged to continue with physical therapy and aggressively attempt to return to ambulation activity. podiatry will continue to monitor while patient remains in house patient stable from podiatry standpoint and instructed to follow up in wound care center as outpatient
--- NOTE | 2017-04-15 16:01 | PCM.PSYCH ---
Initial Psychiatric Evaluation - Initial Psychiatric Evaluation Type of Admission: Voluntary Legal Status: Capacity (patient has capacity to sign consent for treatment) Chief Complaint (in patient's own words): "I was feeling very lonely, was feeling hopeless, I'm doing a little better now " Patient's Reaction to Hospitalization: patient was transferred from the medical side for evaluation and stabilization of depressive symptoms, feeling of hopelessness, not able to take care of himself,medication adjustment and titration. History of Present Illness and Precipitating Events: Shortly patient is 57 years old male, not known previous psychiatric history, self reported history of depression, multiple medical comorbidities please see medical teamfor more detailed information, patient was transferred from the medical side for evaluation of depressive symptoms, feeling of hopelessness, inability to take care of himself, for further evaluations, titration of medications. patient was seen today in his room, patient was not able to ambulate, patient had acceptable personal hygiene and poor ADLs. Patient reported that he was feeling depressed, hopeless, helpless, worthless, guilty, patient reported that he never felt this bad before. Patient primary care team Dr. Daniels as well as Dr. Gonzalez expressed highest concern about pt' s safety at home. 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 At present moment patient reported that he feels depressed, hopeless, denied any thoughts of killing himself or others. Patient reported that his depressive symptoms are mildly better. Patient reported that at times he feels that he does not want to leave anymore, "I want to give up". Patient denied feeling anxious denied panic attacks. Patient reported that she scares go back to home, because patient has no social support, lives alone, has multiple medical problems, was not able to walk since the time of admission. Patient reported that she has poor sleep but sleep is improved after Sonata was started. No manic symptoms were elicited. No psychotic symptoms elicited. Patient denied smoking, denied using alcohol, denied using drugs. family history is unknown. 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 patient completed course of antibiotics, discussed with infectious disease doctor today, patient does not have contact isolation anymore, but patient will extremities needed to be wrapped. Past psychiatric history: Patient denied previous psychiatric history, denied history of suicidal attempts, denied history of being admitted to psychiatric inpatient unit Patient denied history of being abused. Lab Results 04/15/17 07:30: PT 40.8 H*, INR 3.78 H* 04/15/17 07:30: Triglycerides 291 H, Cholesterol 193, LDL Cholesterol Direct 104 , HDL Cholesterol 31 04/15/17 07:30: Free T4 1.26, TSH 3rd Generation 5.04 H Vital Signs Temp Pulse Resp BP 04/15/17 15:52 53 L 156/82 H 04/15/17 09:43 54 L 137/86 04/15/17 09:42 54 L 137/86 04/15/17 07:33 97.8 F 54 L 20 137/86 04/14/17 19:21 75 135/91 H Current Medications: Active Medications Generic Name Dose Route Start Last Admin Trade Name Freq PRN Reason Stop Dose Admin Acetaminophen 650 mg 04/14/17 18:30 04/15/17 10:32 Tylenol 325mg Tab PO 650 mg Q4 PRN Administration Pain, moderate (4-7) Al Hydrox/Mg Hydrox/Simethicone 30 ml 04/14/17 18:30 Maalox Plus 30 Ml PO DAILY PRN Upset Stomach Arformoterol Tartrate 15 mcg 04/15/17 20:00 Brovana IH [id number] SANDRINE Budesonide 0.25 mg 04/15/17 20:00 Pulmicort Respules IH [id number] SANDRINE Clonidine HCl 0.1 mg 04/14/17 18:15 04/15/17 09:43 Catapres PO 0.1 mg BID SANDRINE Administration Diltiazem HCl 180 mg 04/15/17 08:00 04/15/17 09:42 Cardizem Cd PO 180 mg DAILY SANDRINE Administration Docusate Sodium 100 mg 04/15/17 08:00 04/15/17 09:41 Colace PO 100 mg TID SANDRINE Administration Duloxetine HCl 40 mg 04/15/17 08:00 04/15/17 09:41 Cymbalta PO 40 mg DAILY SANDRINE Administration Finasteride 5 mg 04/15/17 08:00 04/15/17 09:43 Proscar PO 5 mg DAILY SANDRINE Administration Insulin Human Lispro 1 units 04/14/17 22:00 04/15/17 13:05 Humalog Low SC 1 units ACHS SANDRINE Administration Protocol Levothyroxine Sodium 75 mcg 04/15/17 06:00 04/15/17 06:16 Synthroid PO 75 mcg 0600 SANDRINE Administration Lidocaine 2 ea 04/15/17 08:00 04/15/17 09:44 Lidoderm TD 2 ea DAILY SANDRINE Administration Magnesium Hydroxide 30 ml 04/14/17 18:30 Milk Of Magnesia PO DAILY PRN Constipation Magnesium Oxide 400 mg 04/14/17 18:30 04/15/17 09:43 Mag-Ox PO 400 mg BID SANDRINE Administration Metoprolol Tartrate 25 mg 04/15/17 08:00 04/15/17 09:42 Lopressor PO 25 mg DAILY SANDRINE Administration Multivitamins/Minerals 1 tab 04/15/17 08:00 04/15/17 09:43 Therapeutic-M Tab PO 1 tab 0800 SANDRINE Administration Nystatin 1 gm 04/14/17 18:21 Nystop Topical Powder TOP Q6H PRN for redness on abdominal folds Olopatadine HCl 1 ml 04/15/17 08:00 04/15/17 09:45 Patanol 0.1% Opht Soln OU 1 drop DAILY SANDRINE Administration Oxycodone HCl 80 mg 04/14/17 18:30 04/15/17 13:03 Oxycontin Extended Release Tab PO 80 mg Q6H SANDRINE Administration Oxycodone/Acetaminophen 2 tab 04/14/17 18:25 04/15/17 13:04 Percocet 5/325 Mg Tab PO 04/17/17 18:26 2 tab Q4H PRN Administration Pain, severe (8-10) Pantoprazole Sodium 40 mg 04/15/17 06:00 04/15/17 06:16 Protonix Ec Tab PO 40 mg 0600 SANDRINE Administration Warfarin Sodium 7.5 mg 04/15/17 18:00 Coumadin PO 1800 [facility] Protocol Zaleplon 10 mg 04/14/17 22:00 04/14/17 21:41 Sonata PO 10 mg HS SANDRINE Administration Zinc Sulfate 220 mg 04/15/17 08:00 Zinc Sulfate 220 Mg Cap PO DAILY SANDRINE Past Psychiatric History - Past Psychiatric History Previous Treatment History: None Prior Professional Help: see HPI Prior Psychiatric Treatment: see HPI At what hospital: see HPI Duration: see HPI Nature of Treatment: see HPI Explanation of prior treatment: see HPI History of Abuse: see HPI denied History of ETOH/Drug Use: see HPI History of Family Illness: see HPI Pertinent Medical Hx (Current Medical&Sleep Prob, Allergies): Allergies Allergy/AdvReac Type Severity Reaction Status Date / Time No Known Allergies Allergy Verified 04/14/17 19:57 Docusate [Colace] 100 mg PO TID cap 01/14/17 Finasteride [Proscar] 5 mg PO DAILY tab 01/14/17 Furosemide [Lasix] 40 mg PO BID tab 01/14/17 Insulin Human Regular [Novolin R] 0 unit SC ACHS unit 01/14/17 Levothyroxine [Synthroid] 75 mcg PO DAILY@0630 tab 01/14/17 Lidocaine 5% [Lidoderm] 1 ea TD DAILY patch 01/14/17 Metoprolol Tartrate [Lopressor] 25 mg PO DAILY tab 01/14/17 Nystatin [Nystop Topical Powder] 1 applic TOP Q6H PRN #0 bottle 01/14/17 Warfarin [Coumadin] 10 mg PO 1800 tab 01/14/17 cloNIDine [Catapres] 0.1 mg PO BID tab 01/14/17 oxyCODONE/Acetaminophen [Percocet 5/325 mg Tab] 2 tab PO Q4H PRN #0 tab oxyCODONE [oxyCONTIN Extended Release Tab] 80 mg PO Q6 04/01/17 Acetaminophen [Tylenol 325mg tab] 650 mg PO Q6H PRN #60 tab 04/14/17 DULoxetine [Cymbalta] 40 mg PO DAILY ecc 04/14/17 Docusate [Colace] 100 mg PO TID cap 04/14/17 Magnesium Oxide [Mag-Ox] 400 mg PO BID tab 04/14/17 Multivitamin Therapeutic Tab [Thera Tab] 1 tab PO DAILY tab 04/14/17 Pantoprazole [Protonix EC Tab] 40 mg PO ACB ect 04/14/17 Warfarin [Coumadin] 7.5 mg PO 1800 tab 04/14/17 Zaleplon [Sonata] 10 mg PO HS cap 04/14/17 Zinc [Zinc Sulfate 220 mg Cap] 220 mg PO DAILY cap 04/14/17 diltiaZEM CD [Cardizem CD] 180 mg PO DAILY #30 cap 04/14/17 oxyCODONE/Acetaminophen [Percocet 5/325 mg Tab] 2 tab PO Q4H PRN #30 tab Review of Systems - Review of Systems Systems not reviewed;Unavailable: Acuity of Condition - EENT Eyes: As Per HPI Ears: As Per HPI Nose/Mouth/Throat: As Per HPI - Cardiovascular Cardiovascular: As Per HPI - Respiratory Respiratory: As Per HPI - Gastrointestinal Gastrointestinal: As Per HPI - Genitourinary Genitourinary: As Per HPI - Reproductive: Male Reproductive:Male: As Per HPI - Musculoskeletal Musculoskeletal: As Par HPI - Integumentary Integumentary: As Per HPI - Neurological Neurological: As Per HPI - Psychiatric Psychiatric: As Per HPI - Endocrine Endocrine: As Per HPI - Hematologic/Lymphatic Hematologic: As Per HPI Mental Status Examination - Personal Presentation Personal Presentation: Looks stated age - Affect Affect: Constricted (but more reactive and mood congruent) - Motor Activity Motor Activity: Calm - Reliability in Providing Information Reliability in Providing Information: Fair - Speech Speech: Organized - Mood Mood: Depressed - Formal Thought Process Formal Thought Process: No Impairment - Obsessions/Compulsions Obsessions: None Compulsions: None - Cognitive Functions Orientation: Person, Place, Situation, Time Sensorium: Alert Attention/Concentration: Easily distracted Abstract Thinking: [place] Estimate of Intelligence: Average Judgement: Intact, as evidence by: Insight regarding need for hospitalization - Risk Risk: Suicidal, Self-mutilation, Diminished functioning - Strength & Assets Inventory Strength & Assets Inventory: Cooperative - Limitations Limitations: Other (patient lives independently, has mental illness, multiple medical problems) DSM 5 DX - DSM 5 DSM 5 Diagnosis: rule out major depressive disorder Rule out mood disorder due to general medical condition Rule out anxiety due to general medical condition Rule out adjustment disorder with depressed and anxious mood - Recommended/Plan of Treatment Treatment Recommendations and Plan of Treatment: milieu, structure, supportive therapy Cymbalta will be continued 40 mg daily for depression and anxiety as well as diabetes neuropathy Sonata 10 mg at the nighttime for insomnia Neurontin will be continued Patient will be seen by medical team for medication management Discussed with infectious disease team patient completed course of antibiotics Patient will be seen by physical therapist Patient will be seen by Dr. Daniels Out of bed SW evaluation will monitor closely will continue all meds from the medical side Projected ELOS: 5 days Prognosis: guarded Discharge Plan and Discharge Criteria: Pt will be not depressed or manic, will be more hopeful, will be not psychotic or anxious, will be not having thoughts of harming self or others, will be tolerating medications well, will not have major side effects, will be able to function, will not pose threat to self or others. - Smoking Cessation Smoking Cessation Initiated: No Reason for not providing: patient denied smoking denied using drugs
[2017-04-15] MEDS: Arformoterol 15 mcg/2 ml Inh Sol IH SCH (23:00)
[2017-04-15] MEDS: Budesonide 0.25 mg/2 ml Inhal Susp UD IH SCH (23:00)
[2017-04-16] MEDS: oxyCODONE 80 mg ER Tab (oxyCONTIN) PO SCH ×4 (00:37→18:32)
[2017-04-16] MEDS: Oxycodone/Acetaminophen 5/325 mg Tab PO PRN ×4 (00:37→18:33)
[2017-04-16] MEDS: Pantoprazole 40 mg EC Tab PO SCH (06:40)
[2017-04-16] MEDS: Levothyroxine 75 MCG TAB PO SCH (06:40)
[2017-04-16 07:59] LABS: INR 3.68 (0.93-1.08)
[2017-04-16 08:01] LABS: BLOOD UREA NITROGEN 30 mg/dL (7-21); CALCIUM 9.8 mg/dL (8.4-10.5); CARBON DIOXIDE 32 mmol/L (21-33); CHLORIDE 97 mmol/L (98-107); GFR AFRICAN-AMERICAN > 60; GLUCOSE,RANDOM 116 mg/dL (70-110); POTASSIUM 4.4 mmol/L (3.6-5.0); SODIUM 137 mmol/L (132-148)
[2017-04-16] MEDS: Insulin Lispro (humaLOG) LOW Coverage SC SCH ×4 (08:40→21:34)
[2017-04-16] MEDS: Arformoterol 15 mcg/2 ml Inh Sol IH SCH ×2 (08:58→22:16)
[2017-04-16] MEDS: Budesonide 0.25 mg/2 ml Inhal Susp UD IH SCH ×2 (08:59→22:16)
--- NOTE | 2017-04-16 09:25 | CON ---
DATE: 04/15/2017 The patient admitted to psych floor because of feeling hopeless and depressed, could not care for him self. HISTORY OF PRESENT ILLNESS: This is a 57-year-old male with multiple medical problems and comorbidit ies. The patient was evaluated on day of discharge from medical floor by psychiatrist and was admitt ed for psychological evaluations, depression, treatment, support for his other medical problems and m anagement, including also physical therapy. The patient has no chest pain, no short of breath, no na usea, no vomiting. He feels depressed, hopeless and needs some support. No suicidal thoughts or usman ations and never had any history of suicidal ____. The patient has multiple medical problems, on mul tiple medications, keeps coming in and out from the hospital, does not want to go to a halfway a nd hopefully, will go for bariatric surgery after these admissions. PAST MEDICAL HISTORY: As I mentioned, the patient has morbid obesity, recurrent leg cellulitis for y ears, obstructive sleep apnea, hypertension, congestive heart failure, COPD, chronic osteoarthritis, chronic back pain, depression, hypothyroidism, right-sided heart failure. ALLERGIES: No known allergies. SOCIAL HISTORY: He does not smoke, does not drink. He lives by himself. 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 REVIEW OF SYSTEMS: As in the present illness, he always complains of back pain, knee pain, dyspnea o n exertion, difficult ambulation, especially with his ADLs and needs assistance, uses a walker with w alking and needs assistance when he comes to the doctors' visits.. PHYSICAL EXAMINATION: VITAL SIGNS: Temperature is 97.8, heart rate 54, blood sugar 137/86, respiration 20. HEAD AND NECK: Normal. No JVD, no thyromegaly. CHEST: Clear. Good air entry. CARDIAC: First sound, second sound normal. ABDOMEN: Soft, obese, nontender. EXTREMITIES: Both legs are wrapped, on the bed elevated and mild edema. NEUROLOGIC: Normal. He is alert, awake, oriented x 3. LABORATORY DATA: PT/INR, PT 40.8, INR 3.78 which is elevated. IMPRESSION AND PLAN: 1. Depression. Continue support with management per psychiatrist. The patient is getting Cymbalta 40 mg daily and continue follow up with the psychiatrist. 2. Chronic and recurrent acute leg cellulitis, seems stable, off antibiotic. Continue local wound c are, Dr. Daniels. 3. Obstructive sleep apnea. Continue BiPAP machine. Continue inhaled bronchodilator for underlying chronic obstructive pulmonary disease. 4. Hypothyroidism, congestive heart failure, right-sided and hypertension. Continue Cardizem. Cont inue Lopressor. Continue also the Synthroid. 5. Chronic back pain, chronic left knee pain, insomnia. Continue Sonata 10 mg and continue his oxyc odone 10 mg every 4 hours and OxyContin every 6 hours. Plan: Continue current treatment. For his diabetes, he is on insulin coverage. We will follow up clinically. Also, for his itchy eye, the pat ient seems to be doing well with Patanol eyedrops. We will continue that. Continue current treatmen t. Follow up clinically. Yvon Gonzalez MD cc: [phone] TT: 04/16/2017 09:24:41 Confirmation # [id number] Dictation # [id number] tn
[2017-04-16] MEDS: diltiaZEM 180 mg/24 Hours CD Cap PO SCH (10:32)
[2017-04-16] MEDS: Lidocaine 5% Patch TD SCH (10:34)
[2017-04-16] MEDS: Magnesium Oxide 400 mg Tab UD PO SCH ×2 (10:36→17:30)
[2017-04-16] MEDS: Multivitamin With Minerals Tab PO SCH (10:36)
[2017-04-16] MEDS: Olopatadine 0.1% Opht Sol OU SCH (10:41)
--- NOTE | 2017-04-16 15:08 | PCM.PYCHPN ---
Psychiatric Progress Note - Psychiatric Progress Note Patient seen today, length of contact: 30 minute Patient Chief Complaint: "I was feeling very lonely, your stuff is great, everybody calms and talk to me , it helps" Problems Identified/Issues Discussed: Suicide/ homicide prevention, past psychiatric h/o, current psychiatric symptoms , medical problems, risk/benefits and alternatives of medications, medications compliance, coping strategies, substance abuse h/o, relapse prevention, importance of follow up with psychiatrist and therapist, discharge plan. 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 patient completed course of antibiotics, discussed with infectious disease doctor today, patient does not have contact isolation anymore, but patient will extremities needed to be wrapped. Diagnostic Results: 04/16/17 07:00 Lab Results 04/16/17 07:00: Sodium 137, Potassium 4.4, Chloride 97 L, Carbon Dioxide 32, Anion Gap 12, BUN 30 H, Creatinine 1.4, Est GFR ( Amer) > 60, Est GFR ( Non-Af Amer) 52, Random Glucose 116 H, Calcium 9.8 04/16/17 07:00: PT 39.7 H*, INR 3.68 H* 04/15/17 16:09: POC Glucose (mg/dL) 113 H 04/15/17 07:30: PT 40.8 H*, INR 3.78 H* 04/15/17 07:30: Triglycerides 291 H, Cholesterol 193, LDL Cholesterol Direct 104 , HDL Cholesterol 31 04/15/17 07:30: Free T4 1.26, TSH 3rd Generation 5.04 H 04/15/17 07:30: RPR Nonreactive Vital Signs Temp Pulse Resp BP 04/16/17 10:34 50 L 174/96 H 04/16/17 10:33 50 L 174/96 H 04/16/17 10:32 50 L 174/90 H 04/16/17 07:45 97.9 F 50 L 20 174/90 H 04/15/17 17:23 53 L 156/83 H 04/15/17 15:52 53 L 156/82 H 04/15/17 09:43 54 L 137/86 04/15/17 09:42 54 L 137/86 04/15/17 07:33 97.8 F 54 L 20 137/86 04/14/17 19:21 75 135/91 H DSM 5 Symptoms Update: Shortly patient is 57 years old male, not known previous psychiatric history, self reported history of depression, multiple medical comorbidities please see medical teamfor more detailed information, patient was transferred from the medical side for evaluation of depressive symptoms, feeling of hopelessness, inability to take care of himself, for further evaluations, titration of medications. patient was seen today in his room, patient was not able to ambulate, patient had acceptable personal hygiene and poor ADLs. pt was seen by PT today, no official note yet. pt reported that his mood is slowly improving, pt has transient hopelessness, denied thoughts of harming self or others. No manic symptoms were elicited. No psychotic symptoms elicited. Patient denied smoking, denied using alcohol, denied using drugs. Impression: DSM 5 Diagnosis: rule out major depressive disorder Rule out mood disorder due to general medical condition Rule out anxiety due to general medical condition Rule out adjustment disorder with depressed and anxious mood Medication Change: Yes (Cymbalta was increased) Medical Record Reviewed: Yes Consults ordered or reviewed: patient was seen by medical team Patient was seen by physical therapy team no official report. Mental Status Examination - Cognitive Function Orientation: Person, Place, Situation, Time Memory: Intact Attention: Poor Concentration: Poor Association: WNL Fund of Knowledge: WNL - Mood Mood: Depressed - Affect Affect: Constricted (but more reactive and mood congruent) - Formal Thought Process Formal Thought Process: No Impairment - Suicidal Ideation Suicidal Ideation: No - Homicidal Ideation Homicidal Ideation: No Goal/Treatment Plan - Goal/Treatment Plan Need for Continued Stay: Remain at risks for inpatient hospitalization, Severe depression anxiety, Discharge may exacerbated symptoms, Severe functional impairment Progress Toward Problem(s) and Goals/Treatment Plan: milieu, structure, supportive therapy Cymbalta 60 mg daily for depression and anxiety as well as diabetes neuropathy Sonata 10 mg at the nighttime for insomnia Neurontin will be continued Patient will be seen by medical team for medication management Discussed with infectious disease team patient completed course of antibiotics Patient will be seen by physical therapist Patient will be seen by Dr. Daniels Out of bed SW evaluation will monitor closely will continue all meds from the medical side Estimated Date of D/C: 04/17/17 (we'll monitor closely)
[2017-04-17] MEDS: oxyCODONE 80 mg ER Tab (oxyCONTIN) PO SCH ×4 (00:05→18:52)
[2017-04-17] MEDS: Oxycodone/Acetaminophen 5/325 mg Tab PO PRN ×4 (00:05→19:23)
[2017-04-17 01:04] LABS: URINE BILIRUBIN NEGATIVE (NEGATIVE); URINE BLOOD NEGATIVE (NEGATIVE); URINE GLUCOSE (UA) NEGATIVE (NEGATIVE); URINE KETONE NEGATIVE (NEGATIVE); URINE LEUKOCYTE ESTERASE NEGATIVE Leu/uL (NEGATIVE); URINE PROTEIN 30 mg/dL (<30 mg/dL); URINE UROBILINOGEN 0.2 E.U./dL (<1 E.U./dL)
[2017-04-17 01:22] LABS: URINE APPEARANCE CLEAR (CLEAR); URINE COLOR YELLOW (YELLOW); URINE RBC 0 - 2 /hpf (0-2); URINE WBC 0 - 2 /hpf (0-6)
[2017-04-17 01:23] LABS: URINE EPITHELIAL CELLS 0 - 2 /hpf (0-5)
[2017-04-17] MEDS: Levothyroxine 75 MCG TAB PO SCH (05:55)
[2017-04-17] MEDS: Pantoprazole 40 mg EC Tab PO SCH ×2 (05:55→17:43)
[2017-04-17 07:49] LABS: ADD MANUAL DIFF? NO
[2017-04-17 07:56] LABS: BASO # 0.04 K/mm3 (0.0-2.0); BASO % 0.6 % (0.0-3.0); EOS # 0.2 (0.0-0.7); EOS % 2.6 % (1.5-5.0); GRAN # 4.66 (1.4-6.5); GRAN % 67.4 % (50.0-68.0); HEMATOCRIT 38.2 % (42.0-52.0); LYMPH # 1.6 (1.2-3.4); LYMPH % 22.9 % (22.0-35.0); MEAN CELL VOLUME 84.5 fL (80.0-105.0); MEAN CORPUSCULAR HEMOGLOBIN 28.8 pg (25.0-35.0); MEAN PLATELET VOLUME 12.5 fl (7.0-11.0); MONO # 0.5 (0.1-0.6); MONO % 6.5 % (1.0-6.0); PLATELET COUNT 159 10^3/uL (120.0-450.0); RED CELL DISTRIBUTION WIDTH 13.4 % (11.5-14.5); WHITE BLOOD COUNT 6.9 10^3/ul (4.5-11.0)
[2017-04-17 08:00] LABS: ALKALINE PHOSPHATASE 150 U/L (38-133); ALT/SGPT 34 U/L (7-56); AST/SGOT 29 U/L (15-59); BILIRUBIN,TOTAL 0.5 mg/dL (0.2-1.3); BLOOD UREA NITROGEN 25 mg/dL (7-21); CALCIUM 9.8 mg/dL (8.4-10.5); CARBON DIOXIDE 31 mmol/L (21-33); CHLORIDE 97 mmol/L (95-110); GFR AFRICAN-AMERICAN > 60; GLUCOSE,RANDOM 112 mg/dL (70-110); SODIUM 136 mmol/L (132-148); TOTAL PROTEIN 8.3 g/dL (5.8-8.3)
[2017-04-17] MEDS: Insulin Lispro (humaLOG) LOW Coverage SC SCH ×4 (08:00→22:04)
[2017-04-17 08:01] LABS: INR 2.69 (0.93-1.08)
[2017-04-17] MEDS: Budesonide 0.25 mg/2 ml Inhal Susp UD IH SCH ×2 (08:30→20:26)
[2017-04-17] MEDS: Arformoterol 15 mcg/2 ml Inh Sol IH SCH ×2 (08:30→20:25)
[2017-04-17 08:46] LABS: AMYLASE 82 U/L (35-125); LIPASE 222 U/L (23-300)
--- NOTE | 2017-04-17 10:11 | CT ---
PROCEDURE: CT HEAD WITHOUT CONTRAST. HISTORY: med clearance COMPARISON: 06/02/2016 TECHNIQUE: Axial computed tomography images were obtained through the head/brain without intravenous contrast. Radiation dose: Total exam DLP = 800 mGy-cm. This CT exam was performed using one or more of the following dose reduction techniques: Automated exposure control, adjustment of the mA and/or kV according to patient size, and/or use of iterative reconstruction technique. FINDINGS: HEMORRHAGE: No intracranial hemorrhage. BRAIN: No mass effect or edema. No atrophy or chronic microvascular ischemic changes. VENTRICLES: Unremarkable. No hydrocephalus. CALVARIUM: Unremarkable. PARANASAL SINUSES: Unremarkable as visualized. No significant inflammatory changes. MASTOID AIR CELLS: Unremarkable as visualized. No inflammatory changes. OTHER FINDINGS: None. IMPRESSION: Normal CT of the Head.
--- NOTE | 2017-04-17 10:12 | PN ---
DATE: 04/16/2017 The patient seems stable. He complained of headache. He did have nausea and vomiting again for the second time. He also feels sick. There is no fever, no chills, no dysuria, no cough, no other compl aints. Nobody else sick in the unit and he does not have any history of any GI problems. He still t akes the same medicine as usual and there is no other complaint. PHYSICAL EXAMINATION: VITAL SIGNS: Noted for blood pressure 132/82, heart rate 57, temperature 97.5, respiratory rate 20. HEAD AND NECK: Normal. No JVD, no thyromegaly. CHEST: Clear, good air entry. CARDIAC: First sound, second sound normal. ABDOMEN: Soft, nontender. EXTREMITIES: Bilateral leg edema with both of them are wrapped with gauze. NEUROLOGIC: Normal, except his body habitus and gait disorder. LABORATORY DATA: PT 39.7, INR 3.68. IMPRESSION AND PLAN: 1. Acute gastroenteritis, probably could be food related. Will order blood work in the morning. No pain. We will get a CT abdomen and pelvis, no contrast. Also getting labs in the morning. Protoni x has been given every day 40 mg. Will add Zofran 4 mg and will follow up on that. We will get also GI, Dr. Bhatia, . Differential diagnosis is broad. The patient did have a bowel movement th at day, so possibility of obstruction less likely, although partial obstruction could be. The patien t, also gallstones could be a possibility. Will get a GI consult and get a CT and will follow up cli nically. Repeat labs in the morning. Will order labs. Will follow up in a.m. 2. Coagulopathy, hig h PT/INR. Continue holding Coumadin. Will repeat PT/INR in the morning. 3. Headaches. I doubt any bleeding. Otherwise, he will be heavy bleed, especially with high Coumad in and may result in change in mental status. The patient currently is alert, awake, oriented x 3. He had physical therapy in the morning, but still too weak, so he stayed in bed. 4. Chronic obstructive pulmonary disease, obstructive sleep apnea. Continue inhaled bronchodilators . Continue BiPAP. 5. The patient does have hypertension. Seems a couple of times, pressure was 170. We add clonidine every 4 hours p.r.n. for systolic more than 170. The patient also on metoprolol, Cardizem, Cozaar. Will monitor his blood pressure carefully and heart rate. 6. Morbid obesity, chronic back pain, chronic knee pain. Continue current pain meds, oxycodone, Oxy Contin. Will follow up clinically. Will see in the morning. If patient continues to be sick, we sydney nicole consider moving the patient to medical floor. According to the nurse, patient had a good dinner da y before that without any other symptoms. Yvon Gonzalez MD cc: [phone] TT: 04/17/2017 08:41:01 Confirmation # [id number] Dictation # [id number]
--- NOTE | 2017-04-17 10:19 | CT ---
PROCEDURE: CT Abdomen and Pelvis without intravenous contrast HISTORY: r/o gi issue COMPARISON: 04/02/2017 TECHNIQUE: Without contrast.. Contrast Dose: 0 Radiation dose: Total exam DLP = 1295.69 mGy-cm. This CT exam was performed using one or more of the following dose reduction techniques: Automated exposure control, adjustment of the mA and/or kV according to patient size, and/or use of iterative reconstruction technique. Please note that the examination is limited due to the patient's body habitus. Maximum field of view available for this machine did not accommodate the right lateral most aspect of the patient's abdomen/abdominal wall. FINDINGS: LOWER THORAX: Unremarkable. LIVER: Unremarkable. No gross lesion or ductal dilatation. GALLBLADDER AND BILE DUCTS: Unremarkable. PANCREAS: Unremarkable. No gross lesion or ductal dilatation. SPLEEN: Normal size. Punctate calcification consistent with old granulomatous disease. No mass. ADRENALS: Unremarkable. No mass. KIDNEYS AND URETERS: Mid right renal cortical cyst, 1.7 cm, unchanged. No other mass. No calculus or hydronephrosis. VASCULATURE: No aortic aneurysm. Inferior vena caval filter noted. BOWEL: Mild retained feces. No bowel obstruction. APPENDIX: Unremarkable. Normal appendix. PERITONEUM: No ascites. No pneumoperitoneum. Please note that there is a small umbilical hernia containing only mesenteric fat. There are subcutaneous varices noted about the entire abdominal wall. LYMPH NODES: Unremarkable. No enlarged lymph nodes. BLADDER: Grossly unremarkable. Suboptimally distended. REPRODUCTIVE: Unremarkable prostate. BONES: Status post ORIF right hip. No acute fracture. OTHER FINDINGS: None. IMPRESSION: No acute abnormality. Limited examination as above. Small right renal cysts. Umbilical hernia containing mesenteric fat. Abdominal wall subcutaneous varices. Mild retained feces. Vena caval filter.
[2017-04-17] MEDS ORDERED: diltiaZEM 180 mg/24 Hours CD Cap PO ONE (10:41)
[2017-04-17] MEDS ORDERED: Magnesium Oxide 400 mg Tab UD ONE (10:45)
[2017-04-17] MEDS: diltiaZEM 180 mg/24 Hours CD Cap PO SCH (10:48)
[2017-04-17] MEDS: Lidocaine 5% Patch TD SCH (10:51)
[2017-04-17] MEDS: Magnesium Oxide 400 mg Tab UD PO SCH ×2 (10:53→17:42)
[2017-04-17] MEDS: Olopatadine 0.1% Opht Sol OU SCH (10:54)
[2017-04-17] MEDS ORDERED: Multivitamin Therapeutic Tab PO ONE (11:03)
[2017-04-17] MEDS: Multivitamin With Minerals Tab PO SCH (11:04)
[2017-04-17] MEDS ORDERED: Multivitamin With Minerals Tab PO ONE (11:09)
--- NOTE | 2017-04-17 12:14 | CP.PCM.PN ---
<Dipti Loyd - Last Filed: 04/17/17 12:11> Subjective - Date & Time of Evaluation Date of Evaluation: 04/17/17 Time of Evaluation: 12:12 - Subjective Subjective: 56 year old male seen at bedside in psych with attending Dr. Zavaleta concerning left leg venous stasis ulcerations. Patient has been treated since 03/31/17 upon admission to the hospital for same concern. Patient complains of abdominal pain. He state that he stood up 3 times yesterday with PT. Denies any acute events overnight. He denies n/f/v/c/d/sob. Objective - Vital Signs/Intake and Output Vital Signs (last 24 hours): Temp Pulse Resp BP Pulse Ox 97.5 F L 55 L 20 130/77 04/17/17 07:25 04/17/17 10:52 04/17/17 07:25 04/17/17 10:52 - Medications Medications: Current Medications Acetaminophen (Tylenol 325mg Tab) 650 mg PO Q4 PRN PRN Reason: Pain, moderate (4-7) Last Admin: 04/16/17 17:31 Dose: 650 mg Al Hydrox/Mg Hydrox/Simethicone (Maalox Plus 30 Ml) 30 ml PO DAILY PRN PRN Reason: Upset Stomach Arformoterol Tartrate (Brovana) 15 mcg IH [id number] [facility] Last Admin: 04/17/17 08:30 Dose: Not Given Budesonide (Pulmicort Respules) 0.25 mg IH [id number] [facility] Last Admin: 04/17/17 08:30 Dose: Not Given Clonidine HCl (Catapres) 0.1 mg PO BID [facility] Last Admin: 04/17/17 10:50 Dose: 0.1 mg Clonidine HCl (Catapres) 0.1 mg PO Q6 PRN PRN Reason: give for bp higher than 170 Diltiazem HCl (Cardizem Cd) 180 mg PO DAILY [facility] Last Admin: 04/17/17 10:48 Dose: 180 mg Docusate Sodium (Colace) 100 mg PO TID [facility] Last Admin: 04/17/17 10:21 Dose: Not Given Duloxetine HCl (Cymbalta) 60 mg PO DAILY [facility] Last Admin: 04/17/17 11:06 Dose: 60 mg Finasteride (Proscar) 5 mg PO DAILY [facility] Last Admin: 04/17/17 10:54 Dose: 5 mg Hydralazine HCl (Apresoline) 10 mg PO TID [facility] Last Admin: 04/17/17 10:49 Dose: 10 mg Insulin Human Lispro (Humalog Low) 1 units SC ACHS [facility] PRN Reason: Protocol Last Admin: 04/17/17 08:00 Dose: Not Given Levothyroxine Sodium (Synthroid) 75 mcg PO 0600 [facility] Last Admin: 04/17/17 05:55 Dose: 75 mcg Lidocaine (Lidoderm) 2 ea TD DAILY [facility] Last Admin: 04/17/17 10:51 Dose: 2 ea Magnesium Hydroxide (Milk Of Magnesia) 30 ml PO DAILY PRN PRN Reason: Constipation Magnesium Oxide (Mag-Ox) 400 mg PO BID [facility] Last Admin: 04/17/17 10:53 Dose: 400 mg Metoprolol Tartrate (Lopressor) 25 mg PO BID [facility] Last Admin: 04/17/17 10:52 Dose: 25 mg Multivitamins/Minerals (Therapeutic-M Tab) 1 tab PO 0800 [facility] Last Admin: 04/17/17 11:04 Dose: 1 tab Nystatin (Nystop Topical Powder) 1 gm TOP Q6H PRN PRN Reason: for redness on abdominal folds Olopatadine HCl (Patanol 0.1% Opht Soln) 1 ml OU DAILY [facility] Last Admin: 04/17/17 10:54 Dose: 1 drop Ondansetron HCl (Zofran Inj) 4 mg IM Q6 PRN PRN Reason: Nausea/Vomiting Oxycodone HCl (Oxycontin Extended Release Tab) 80 mg PO Q6H [facility] Last Admin: 04/17/17 05:53 Dose: 80 mg Oxycodone/Acetaminophen (Percocet 5/325 Mg Tab) 2 tab PO Q4H PRN PRN Reason: Pain, severe (8-10) Stop: 04/17/17 18:26 Last Admin: 04/17/17 05:53 Dose: 2 tab Pantoprazole Sodium (Protonix Ec Tab) 40 mg PO 0600,1600 [facility] Last Admin: 04/17/17 05:55 Dose: 40 mg Warfarin Sodium (Coumadin) 7.5 mg PO 1800 [facility] PRN Reason: Protocol Last Admin: 04/15/17 17:16 Dose: Not Given Zaleplon (Sonata) 10 mg PO HS [facility] Last Admin: 04/16/17 21:28 Dose: 10 mg Zinc Sulfate (Zinc Sulfate 220 Mg Cap) 220 mg PO DAILY [facility] Last Admin: 04/17/17 10:54 Dose: 220 mg - Labs Labs: 04/17/17 07:30 04/17/17 07:30 PT 29.0 Seconds (9.9-11.8) H 04/17/17 07:30 INR 2.69 (0.93-1.08) H 04/17/17 07:30 - Constitutional Appears: Well, Non-toxic, No Acute Distress - Extremities Exam Additional comments: Lower extremity focused exam: Vasc: Non-palpable pedal pulses due to edema b/l, TG warm to warm, CFT < 3 sec to all digits, +1 pitting edema Neuro: grossly diminished Derm: +1 pitting edema to legs bilateral, localized erythema to mid-calf bilateral. Left posterior distal 1/2 of leg superficial ulceration measuring 13 x 6.3cm with minor sanguinous drainage noted. Absent undermining on a granular base with moderate jamila-wound macerations. Anterior leg stable scabs noted. Right distal medial leg, resolved re-epithelialized ulcer base. MUSC: pain on palpation of posterior and medial legs b/l - Neurological Exam Neurological Exam: Alert, Awake, Oriented x3 - Psychiatric Exam Psychiatric exam: Normal Affect, Normal Mood Assessment and Plan - Assessment and Plan (Free Text) Assessment: 57 year old male seen at bedside in psych for left superficial venous stasis ulcerations Plan: patient evaluated and seen at bedside seen at bedside with attending Dr. Zavaleta Labs and vitals reviewed; afebrile, absent leukocytosis continue IV abx per ID-imipenem cleansed left lower extremity with saline. Left leg dressed with xeroform, ABD, kerlix, and YAYO right leg YAYO bandage left intact Patient encouraged to continue with physical therapy and aggressively attempt to return to ambulation activity. podiatry will continue to monitor while patient remains in house patient stable from podiatry standpoint and instructed to follow up in wound care center as outpatient <Parish Zavaleta - Last Filed: 04/17/17 14:56> Objective - Vital Signs/Intake and Output Vital Signs (last 24 hours): Temp Pulse Resp BP Pulse Ox 97.5 F L 55 L 20 130/77 04/17/17 07:25 04/17/17 10:52 04/17/17 07:25 04/17/17 10:52 - Medications Medications: Current Medications Acetaminophen (Tylenol 325mg Tab) 650 mg PO Q4 PRN PRN Reason: Pain, moderate (4-7) Last Admin: 04/16/17 17:31 Dose: 650 mg Al Hydrox/Mg Hydrox/Simethicone (Maalox Plus 30 Ml) 30 ml PO DAILY PRN PRN Reason: Upset Stomach Arformoterol Tartrate (Brovana) 15 mcg IH [id number] [facility] Last Admin: 04/17/17 08:30 Dose: Not Given Budesonide (Pulmicort Respules) 0.25 mg IH [id number] [facility] Last Admin: 04/17/17 08:30 Dose: Not Given Clonidine HCl (Catapres) 0.1 mg PO BID [facility] Last Admin: 04/17/17 10:50 Dose: 0.1 mg Clonidine HCl (Catapres) 0.1 mg PO Q6 PRN PRN Reason: give for bp higher than 170 Diltiazem HCl (Cardizem Cd) 180 mg PO DAILY [facility] Last Admin: 04/17/17 10:48 Dose: 180 mg Docusate Sodium (Colace) 100 mg PO TID [facility] Last Admin: 04/17/17 10:21 Dose: Not Given Duloxetine HCl (Cymbalta) 60 mg PO DAILY [facility] Last Admin: 04/17/17 11:06 Dose: 60 mg Finasteride (Proscar) 5 mg PO DAILY [facility] Last Admin: 04/17/17 10:54 Dose: 5 mg Hydralazine HCl (Apresoline) 10 mg PO TID [facility] Last Admin: 04/17/17 13:00 Dose: Not Given Insulin Human Lispro (Humalog Low) 1 units SC ACHS [facility] PRN Reason: Protocol Last Admin: 04/17/17 08:00 Dose: Not Given Levothyroxine Sodium (Synthroid) 75 mcg PO 0600 [facility] Last Admin: 04/17/17 05:55 Dose: 75 mcg Lidocaine (Lidoderm) 2 ea TD DAILY [facility] Last Admin: 04/17/17 10:51 Dose: 2 ea Magnesium Hydroxide (Milk Of Magnesia) 30 ml PO DAILY PRN PRN Reason: Constipation Magnesium Oxide (Mag-Ox) 400 mg PO BID [facility] Last Admin: 04/17/17 10:53 Dose: 400 mg Metoprolol Tartrate (Lopressor) 25 mg PO BID [facility] Last Admin: 04/17/17 10:52 Dose: 25 mg Multivitamins/Minerals (Therapeutic-M Tab) 1 tab PO 0800 [facility] Last Admin: 04/17/17 11:04 Dose: 1 tab Nystatin (Nystop Topical Powder) 1 gm TOP Q6H PRN PRN Reason: for redness on abdominal folds Olopatadine HCl (Patanol 0.1% Opht Soln) 1 ml OU DAILY [facility] Last Admin: 04/17/17 10:54 Dose: 1 drop Ondansetron HCl (Zofran Inj) 4 mg IM Q6 PRN PRN Reason: Nausea/Vomiting Oxycodone HCl (Oxycontin Extended Release Tab) 80 mg PO Q6H [facility] Last Admin: 04/17/17 13:34 Dose: 80 mg Oxycodone/Acetaminophen (Percocet 5/325 Mg Tab) 2 tab PO Q4H PRN PRN Reason: Pain, severe (8-10) Stop: 04/17/17 18:26 Last Admin: 04/17/17 13:34 Dose: 2 tab Pantoprazole Sodium (Protonix Ec Tab) 40 mg PO 0600,1600 [facility] Last Admin: 04/17/17 05:55 Dose: 40 mg Warfarin Sodium (Coumadin) 7.5 mg PO 1800 [facility] PRN Reason: Protocol Last Admin: 04/15/17 17:16 Dose: Not Given Zaleplon (Sonata) 10 mg PO HS [facility] Last Admin: 04/16/17 21:28 Dose: 10 mg Zinc Sulfate (Zinc Sulfate 220 Mg Cap) 220 mg PO DAILY [facility] Last Admin: 04/17/17 10:54 Dose: 220 mg - Labs Labs: 04/17/17 07:30 04/17/17 07:30 PT 29.0 Seconds (9.9-11.8) H 04/17/17 07:30 INR 2.69 (0.93-1.08) H 04/17/17 07:30 Attending/Attestation - Attestation I have personally seen and examined this patient.: Yes I have fully participated in the care of the patient.: Yes I have reviewed all pertinent clinical information, including history, physical exam and plan: Yes
[2017-04-17] MEDS ORDERED: POLYETHYLENE GLYCOL 3350 17 GM/Dose PACKET PO ONE (12:25)
--- NOTE | 2017-04-17 13:16 | CON ---
DATE: 04/17/2017 Seen and examined at the bedside this afternoon. REQUEST FOR CONSULT: Nausea and vomiting. HISTORY OF PRESENT ILLNESS: This is a 57-year-old morbidly obese male with a past medical history of recurrent lower extremity cellulitis, CHF, COPD, hypertension, history of colon polyps, gastroparesi s, seen in the psychiatric unit for feeling of hopelessness and depression. The patient, on y afternoon, started to experience headache, nausea and vomiting, was not able to tolerate any oral i ntake. No reports of any hematemesis. This morning he reports that the nausea is better and had not had any episodes of vomiting since yesterday. He just had breakfast and was able to tolerate this. Denies any abdominal pain, no shortness of breath or chest pain. He states that he went for multipl e testing this morning. Head CT, CT scan of abdomen and pelvis as well as gallbladder ultrasound. N o complaints of any fever or chills. He reports that he moves his bowels regularly and there have be en no reports of any melena or bright red blood. Occasional constipation, but not on a regular basis . The patient states he would take Colace. His last endoscopy and colonoscopy was done for anemia i n 01/2014. He was found to have multiple colon polyps, gastroparesis and gastric bezoar. His biopsi es were positive for Carr's esophagus. The patient denies any symptoms of acid reflux or abdomina l pain. PAST MEDICAL HISTORY: As stated above, is morbid obesity, recurrent cellulitis of lower extremity, C HF, COPD, chronic back pain, depression, hypothyroidism, right-sided heart failure, hypertension, obs tructive sleep apnea, colon polyps, gastroparesis, diabetes mellitus, history of DVT. PAST SURGICAL HISTORY: Bilateral knee replacement. ALLERGIES: No known drug allergies. FAMILY HISTORY: Noncontributory at this time. SOCIAL HISTORY: No history of smoking, drinking alcohol or recreational drug use. REVIEW OF SYSTEMS: Systems reviewed with positive findings, see HPI. VITAL SIGNS: Temperature is 97.5, blood pressure is 130/77, pulse 55, respirations 20. LABORATORY DATA: Most recent is 04/17. Today's labs are WBC 6.9, hemoglobin is 13.0, hematocrit 38. 2, platelets are 159. His PT is 29.0, INR is 2.69. Chem: Sodium 136, K 4.0, BUN is 25, creatinine is 1.2, total bilirubin is 0.5, AST 29, ALT 34, alkaline phosphatase is 150. CT scan of abdomen and pelvis, without any contrast, shows mild retained feces, no bowel obstruction, umbilical hernia conta ining only mesenteric fat. There are subcutaneous varices noted about the entire abdominal wall. No acute abnormality. Limited exam as above. Small right renal cyst, umbilical hernia containing mese nteric fat, vena cava filter. Head CT is negative for intracranial hemorrhage or ischemic changes. Impression is normal CT of the head. PHYSICAL EXAMINATION: HEENT: Sclerae are anicteric. NECK: Supple. CARDIAC: S1, S2. LUNGS: Decreased breath sounds at the bases. No rales or wheeze. ABDOMEN: With bowel sounds, is obese. Veins are noted on abdomen. There is no abdominal tenderness on deep palpation. LOWER EXTREMITIES: Wrapped with Steven bandage. No drainage noted. NEUROLOGIC: Awake, alert, and oriented. ASSESSMENT: This is a 57-year-old morbidly obese male with a past medical history of diabetes mellit us, recurrent lower extremity cellulitis, chronic obstructive pulmonary disease, obstructive sleep ap jamee, history of colon polyps and gastroparesis, had onset of nausea and vomiting. Consider acute gas troenteritis. The patient also did complain of a headache. CT scan was negative as well as a CT sca n of abdomen and pelvis. Does have history of gastroparesis, although patient states he has not had any problems until recent. He is noted to have some fecal retention. Will give patient some laxativ es to clean out. Studies were negative for obstruction and he has no abdominal pain. Right now, he seems to be tolerating his diet. We will continue that. Discussed with him to eat small frequent me als and to chew the food well. PLAN: Continue patient's PPI. The patient has been started on PPI, Protonix 40 b.i.d. We will put him on laxative to clean him out and monitor the patient. The patient is also on Coumadin. We will continue to follow closely. Thank you for this consult and for allowing us to participate in your patient's care. Will make furt her recommendations based upon patient's clinical course. The patient was seen and case discussed wi Dr. Bhatia. Patsy DUNNE cc: [id number] TT: 04/17/2017 13:15:06 Confirmation # [id number] Dictation # [id number] rn
--- NOTE | 2017-04-17 14:37 | US ---
HISTORY: noseau, vomiting COMPARISON: None. TECHNIQUE: Sonographic evaluation of the right upper quadrant of the abdomen. FINDINGS: LIVER: Measures 13.8 cm in length. Diffusely increased echogenicity of the liver parenchyma. Consistent with fatty infiltration. Smooth contour. No mass. No biliary ductal dilatation. GALLBLADDER: Questionable small dependent calculi. Not definitely established. No mural thickening or pericholecystic fluid. Negative sonographic Rios sign. COMMON BILE DUCT: Could not be visualized. PANCREAS: Could not be visualized RIGHT KIDNEY: Measures 8.6 cm in length. Normal echogenicity. No calculus, mass, or hydronephrosis. AORTA: Could not be visualized IVC: Not well demonstrated OTHER FINDINGS: None . IMPRESSION: Grossly limited examination due to body habitus and bowel gas. . Questionable cholelithiasis. No evidence of cholecystitis. Fatty infiltration of the liver.
--- NOTE | 2017-04-17 16:54 | PCM.PYCHPN ---
Psychiatric Progress Note - Psychiatric Progress Note Patient seen today, length of contact: 30 minute Patient Chief Complaint: "I thing suman started to work, I feel better, may I go home on Thursday?" Problems Identified/Issues Discussed: Suicide/ homicide prevention, past psychiatric h/o, current psychiatric symptoms , medical problems, risk/benefits and alternatives of medications, medications compliance, coping strategies, substance abuse h/o, relapse prevention, importance of follow up with psychiatrist and therapist, discharge plan. 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 patient completed course of antibiotics, discussed with infectious disease doctor today, patient does not have contact isolation anymore, but patient will extremities needed to be wrapped. Diagnostic Results: 04/16/17 07:00 Lab Results 04/16/17 07:00: Sodium 137, Potassium 4.4, Chloride 97 L, Carbon Dioxide 32, Anion Gap 12, BUN 30 H, Creatinine 1.4, Est GFR ( Amer) > 60, Est GFR ( Non-Af Amer) 52, Random Glucose 116 H, Calcium 9.8 04/16/17 07:00: PT 39.7 H*, INR 3.68 H* 04/15/17 16:09: POC Glucose (mg/dL) 113 H 04/15/17 07:30: PT 40.8 H*, INR 3.78 H* 04/15/17 07:30: Triglycerides 291 H, Cholesterol 193, LDL Cholesterol Direct 104 , HDL Cholesterol 31 04/15/17 07:30: Free T4 1.26, TSH 3rd Generation 5.04 H 04/15/17 07:30: RPR Nonreactive Vital Signs Temp Pulse Resp BP 04/16/17 10:34 50 L 174/96 H 04/16/17 10:33 50 L 174/96 H 04/16/17 10:32 50 L 174/90 H 04/16/17 07:45 97.9 F 50 L 20 174/90 H 04/15/17 17:23 53 L 156/83 H 04/15/17 15:52 53 L 156/82 H 04/15/17 09:43 54 L 137/86 04/15/17 09:42 54 L 137/86 04/15/17 07:33 97.8 F 54 L 20 137/86 04/14/17 19:21 75 135/91 H Laboratory Results - last 72 hr 04/15/17 04/15/17 04/15/17 07:30 07:30 07:30 WBC RBC Hgb Hct MCV MCH MCHC RDW Plt Count MPV Gran % Lymph % (Auto) [place] % (Auto) Eos % (Auto) Baso % (Auto) Gran # Lymph # [place] # Eos # Baso # PT INR Sodium Potassium Chloride Carbon Dioxide Anion Gap BUN Creatinine Est GFR ( Amer) Est GFR (Non-Af Amer) POC Glucose (mg/dL) Random Glucose Calcium Total Bilirubin AST ALT Alkaline Phosphatase Total Protein Albumin Globulin Albumin/Globulin Ratio Triglycerides 291 H Cholesterol 193 LDL Cholesterol Direct 104 HDL Cholesterol 31 Amylase Lipase Free T4 1.26 TSH 3rd Generation 5.04 H Urine Color Urine Appearance Urine pH Ur Specific [place] Urine Protein Urine Glucose (UA) Urine Ketones Urine Blood Urine Nitrate Urine Bilirubin Urine Urobilinogen Ur Leukocyte Esterase Urine RBC Urine WBC Ur Epithelial Cells RPR Nonreactive 04/15/17 04/15/17 04/16/17 07:30 16:09 07:00 WBC RBC Hgb Hct MCV MCH MCHC RDW Plt Count MPV Gran % Lymph % (Auto) [place] % (Auto) Eos % (Auto) Baso % (Auto) Gran # Lymph # [place] # Eos # Baso # PT 40.8 H* 39.7 H* INR 3.78 H* 3.68 H* Sodium Potassium Chloride Carbon Dioxide Anion Gap BUN Creatinine Est GFR ( Amer) Est GFR (Non-Af Amer) POC Glucose (mg/dL) 113 H Random Glucose Calcium Total Bilirubin AST ALT Alkaline Phosphatase Total Protein Albumin Globulin Albumin/Globulin Ratio Triglycerides Cholesterol LDL Cholesterol Direct HDL Cholesterol Amylase Lipase Free T4 TSH 3rd Generation Urine Color Urine Appearance Urine pH Ur Specific [place] Urine Protein Urine Glucose (UA) Urine Ketones Urine Blood Urine Nitrate Urine Bilirubin Urine Urobilinogen Ur Leukocyte Esterase Urine RBC Urine WBC Ur Epithelial Cells RPR 04/16/17 04/17/17 04/17/17 07:00 00:54 07:30 WBC RBC Hgb Hct MCV MCH MCHC RDW Plt Count MPV Gran % Lymph % (Auto) [place] % (Auto) Eos % (Auto) Baso % (Auto) Gran # Lymph # [place] # Eos # Baso # PT 29.0 H INR 2.69 H Sodium 137 Potassium 4.4 Chloride 97 L Carbon Dioxide 32 Anion Gap 12 BUN 30 H Creatinine 1.4 Est GFR ( Amer) > 60 Est GFR (Non-Af Amer) 52 POC Glucose (mg/dL) Random Glucose 116 H Calcium 9.8 Total Bilirubin AST ALT Alkaline Phosphatase Total Protein Albumin Globulin Albumin/Globulin Ratio Triglycerides Cholesterol LDL Cholesterol Direct HDL Cholesterol Amylase Lipase Free T4 TSH 3rd Generation Urine Color Yellow Urine Appearance Clear Urine pH 7.0 Ur Specific [place] 1.015 Urine Protein 30 H Urine Glucose (UA) Negative Urine Ketones Negative Urine Blood Negative Urine Nitrate Negative Urine Bilirubin Negative Urine Urobilinogen 0.2 Ur Leukocyte Esterase Negative Urine RBC 0 - 2 Urine WBC 0 - 2 Ur Epithelial Cells 0 - 2 RPR 04/17/17 04/17/17 04/17/17 07:30 07:30 07:30 WBC 6.9 D RBC 4.52 Hgb 13.0 L Hct 38.2 L MCV 84.5 MCH 28.8 MCHC 34.0 RDW 13.4 Plt Count 159 MPV 12.5 H Gran % 67.4 Lymph % (Auto) 22.9 [place] % (Auto) 6.5 H Eos % (Auto) 2.6 Baso % (Auto) 0.6 Gran # 4.66 Lymph # 1.6 [place] # 0.5 Eos # 0.2 Baso # 0.04 PT INR Sodium 136 Potassium 4.0 Chloride 97 Carbon Dioxide 31 Anion Gap 12 BUN 25 H Creatinine 1.2 Est GFR ( Amer) > 60 Est GFR (Non-Af Amer) > 60 POC Glucose (mg/dL) Random Glucose 112 H Calcium 9.8 Total Bilirubin 0.5 AST 29 ALT 34 Alkaline Phosphatase 150 H Total Protein 8.3 Albumin 4.1 Globulin 4.2 Albumin/Globulin Ratio 1.0 L Triglycerides Cholesterol LDL Cholesterol Direct HDL Cholesterol Amylase 82 Lipase 222 Free T4 TSH 3rd Generation Urine Color Urine Appearance Urine pH Ur Specific [place] Urine Protein Urine Glucose (UA) Urine Ketones Urine Blood Urine Nitrate Urine Bilirubin Urine Urobilinogen Ur Leukocyte Esterase Urine RBC Urine WBC Ur Epithelial Cells RPR Temp Pulse Resp BP Pulse Ox 97.5 F L 55 L 20 127/76 04/17/17 07:25 04/17/17 16:00 04/17/17 07:25 04/17/17 16:00 [place] 22: abdominal CT scan within normal limits Ultrasound of gallbladder within normal limits Head CT scan within normal limits DSM 5 Symptoms Update: Shortly patient is 57 years old male, not known previous psychiatric history, self reported history of depression, multiple medical comorbidities please see medical teamfor more detailed information, patient was transferred from the medical side for evaluation of depressive symptoms, feeling of hopelessness, inability to take care of himself, for further evaluations, titration of medications. patient was seen today in his room, patient Said that yesterday he was able to stand by himself, PT team works with the patient. Patient said that yesterday he had episodes of vomiting, was not able to hold his food down, medical team so patient patient had ultrasonogram all of his abdomen gallbladder and had CT scan of his brain everything came back negative. pt reported that his mood is slowly improving, pt has transient hopelessness, denied thoughts of harming self or others. "I think Cymbalta started to work" No manic symptoms were elicited. No psychotic symptoms elicited. Patient denied smoking, denied using alcohol, denied using drugs. Impression: DSM 5 Diagnosis: rule out major depressive disorder Rule out mood disorder due to general medical condition Rule out anxiety due to general medical condition Rule out adjustment disorder with depressed and anxious mood Medication Change: No (adjusted yesterday) Medical Record Reviewed: Yes Consults ordered or reviewed: patient was seen by medical team Patient was seen by physical therapy team no official report. see notes for more detailed information Mental Status Examination - Cognitive Function Orientation: Person, Place, Situation, Time Memory: Intact Attention: Poor Concentration: Poor Association: WNL Fund of Knowledge: WNL - Mood Mood: Depressed - Affect Affect: Constricted (but more reactive and mood congruent) - Formal Thought Process Formal Thought Process: No Impairment - Suicidal Ideation Suicidal Ideation: No - Homicidal Ideation Homicidal Ideation: No Goal/Treatment Plan - Goal/Treatment Plan Need for Continued Stay: Remain at risks for inpatient hospitalization, Severe depression anxiety, Discharge may exacerbated symptoms, Severe functional impairment Progress Toward Problem(s) and Goals/Treatment Plan: milieu, structure, supportive therapy Cymbalta 60 mg daily for depression and anxiety as well as diabetes neuropathy Sonata 10 mg at the nighttime for insomnia Neurontin will be continued Patient will be seen by medical team for medication management Discussed with infectious disease team patient completed course of antibiotics Patient will be seen by physical therapist Patient will be seen by Dr. Daniels Out of bed SW evaluation will monitor closely will continue all meds from the medical side physical therapy recommendedsubacute rehabilitation Estimated Date of D/C: 04/20/17 (we'll monitor closely)
[2017-04-18] MEDS: oxyCODONE 80 mg ER Tab (oxyCONTIN) PO SCH ×4 (00:32→18:31)
[2017-04-18] MEDS: Oxycodone/Acetaminophen 5/325 mg Tab PO PRN ×4 (00:34→18:32)
[2017-04-18] MEDS: Levothyroxine 75 MCG TAB PO SCH (06:40)
[2017-04-18] MEDS: Pantoprazole 40 mg EC Tab PO SCH ×2 (06:40→17:27)
[2017-04-18] MEDS: Insulin Lispro (humaLOG) LOW Coverage SC SCH ×3 (08:00→17:12)
[2017-04-18 08:07] LABS: INR 2.03 (0.93-1.08)
--- NOTE | 2017-04-18 08:24 | CON ---
DATE: 04/17/2017 This is an addendum to the GI consultation report dictated by Patsy Soares. Discussed with the patient. No further vomiting now. Able to keep the food down. Previous endoscopy workup reviewed. The patient would benefit from EGD to further evaluate barretts colonoscopy in view of the villous adenoma. Thank you very much for allowing us to participate in the care of the patient. Marissa Bhatia MD cc: [id number] TT: 04/18/2017 08:23:41 Confirmation # [id number] Dictation # [id number] desmond HOUGH
[2017-04-18] MEDS: Olopatadine 0.1% Opht Sol OU SCH (08:55)
--- NOTE | 2017-04-18 08:56 | PCM.PYCHPN ---
Psychiatric Progress Note - Psychiatric Progress Note Patient seen today, length of contact: 25 minute Problems Identified/Issues Discussed: I reviewed assessment recent notes. Patient was interviewed at bedside. He is alert and oriented x3 and presents as calm and cooperative. He reports his mood is depressed "but doing better than yesterday". He is not hopeless or suicidal. Affect is pleasant and engaged during our interview. Thought process is coherent and responses are relevant to questioning. Of note patient complained of nausea and vomiting x1-2 days ago and was seen by Dr. Gonzalez. Blood work was requested and zofran was ordered. Presently patient denies any recurrence and only complains of "tiny headache" at this time. Diagnostic Results: rule out major depressive disorder Rule out mood disorder due to general medical condition Rule out anxiety due to general medical condition Rule out adjustment disorder with depressed and anxious mood Medication Change: No ( ) Medical Record Reviewed: Yes (reports, labs, vitals, notes) Mental Status Examination - Cognitive Function Orientation: Person, Place, Situation, Time Memory: Intact Attention: WNL Concentration: Poor Association: WNL Fund of Knowledge: WNL - Mood Mood: Depressed ("doing better") - Affect Affect: Constricted (but more reactive and mood congruent) - Speech Speech: Appropriate - Formal Thought Process Formal Thought Process: No Impairment - Suicidal Ideation Suicidal Ideation: No - Homicidal Ideation Homicidal Ideation: No Goal/Treatment Plan - Goal/Treatment Plan Need for Continued Stay: Remain at risks for inpatient hospitalization, Severe depression anxiety, Discharge may exacerbated symptoms, Severe functional impairment Progress Toward Problem(s) and Goals/Treatment Plan: * c/w current tx and plan * Vitals reviewed and noted below: Selected Entries 04/17/17 04/17/17 16:00 18:00 Pulse Rate 55 L 55 L Blood Pressure 127/76 127/76 Blood Pressure 93 Mean * New weekend labs noted below: 04/18/17 07:52 PT 21.9 H INR 2.03 H Estimated Date of D/C: 04/20/17 (we'll monitor closely)
--- NOTE | 2017-04-18 09:29 | CP.PCM.PN ---
<Erickson Stone - Last Filed: 04/18/17 09:24> Subjective - Date & Time of Evaluation Date of Evaluation: 04/18/17 Time of Evaluation: 08:25 - Subjective Subjective: 56 year old male seen at bedside in psych with attending Dr. Zavaleta concerning left leg venous stasis ulcerations. Patient was resting comfortably in bed psych. Denies any acute events overnight. He denies n/f/v/c/d/sob. Patient denies of any pedal complaints Objective - Vital Signs/Intake and Output Vital Signs (last 24 hours): Temp Pulse Resp BP Pulse Ox 97.5 F L 55 L 20 127/76 04/17/17 07:25 04/17/17 18:00 04/17/17 07:25 04/17/17 18:00 - Medications Medications: Current Medications Acetaminophen (Tylenol 325mg Tab) 650 mg PO Q4 PRN PRN Reason: Pain, moderate (4-7) Last Admin: 04/16/17 17:31 Dose: 650 mg Al Hydrox/Mg Hydrox/Simethicone (Maalox Plus 30 Ml) 30 ml PO DAILY PRN PRN Reason: Upset Stomach Arformoterol Tartrate (Brovana) 15 mcg IH [id number] [facility] Last Admin: 04/17/17 20:25 Dose: Not Given Budesonide (Pulmicort Respules) 0.25 mg IH [id number] [facility] Last Admin: 04/17/17 20:26 Dose: Not Given Clonidine HCl (Catapres) 0.1 mg PO BID [facility] Last Admin: 04/17/17 17:44 Dose: 0.1 mg Clonidine HCl (Catapres) 0.1 mg PO Q6 PRN PRN Reason: give for bp higher than 170 Diltiazem HCl (Cardizem Cd) 180 mg PO DAILY [facility] Last Admin: 04/17/17 10:48 Dose: 180 mg Docusate Sodium (Colace) 100 mg PO TID [facility] Last Admin: 04/17/17 19:16 Dose: Not Given Duloxetine HCl (Cymbalta) 60 mg PO DAILY [facility] Last Admin: 04/17/17 11:06 Dose: 60 mg Finasteride (Proscar) 5 mg PO DAILY [facility] Last Admin: 04/17/17 10:54 Dose: 5 mg Hydralazine HCl (Apresoline) 10 mg PO TID [facility] Last Admin: 04/17/17 18:00 Dose: 10 mg Insulin Human Lispro (Humalog Low) 1 units SC ACHS [facility] PRN Reason: Protocol Last Admin: 04/17/17 22:04 Dose: Not Given Levothyroxine Sodium (Synthroid) 75 mcg PO 0600 [facility] Last Admin: 04/18/17 06:40 Dose: 75 mcg Lidocaine (Lidoderm) 2 ea TD DAILY [facility] Last Admin: 04/17/17 10:51 Dose: 2 ea Magnesium Hydroxide (Milk Of Magnesia) 30 ml PO DAILY PRN PRN Reason: Constipation Magnesium Oxide (Mag-Ox) 400 mg PO BID [facility] Last Admin: 04/17/17 17:42 Dose: 400 mg Metoprolol Tartrate (Lopressor) 25 mg PO BID [facility] Last Admin: 04/17/17 17:41 Dose: 25 mg Multivitamins/Minerals (Therapeutic-M Tab) 1 tab PO 0800 [facility] Last Admin: 04/17/17 11:04 Dose: 1 tab Nystatin (Nystop Topical Powder) 1 gm TOP Q6H PRN PRN Reason: for redness on abdominal folds Olopatadine HCl (Patanol 0.1% Opht Soln) 1 ml OU DAILY [facility] Last Admin: 04/17/17 10:54 Dose: 1 drop Ondansetron HCl (Zofran Inj) 4 mg IM Q6 PRN PRN Reason: Nausea/Vomiting Oxycodone HCl (Oxycontin Extended Release Tab) 80 mg PO Q6H [facility] Last Admin: 04/18/17 06:42 Dose: 80 mg Oxycodone/Acetaminophen (Percocet 5/325 Mg Tab) 2 tab PO Q4H PRN PRN Reason: Pain, moderate (4-7) Stop: 04/20/17 19:05 Last Admin: 04/18/17 06:41 Dose: 2 tab Pantoprazole Sodium (Protonix Ec Tab) 40 mg PO 0600,1600 [facility] Last Admin: 04/18/17 06:40 Dose: 40 mg Warfarin Sodium (Coumadin) 7.5 mg PO 1800 [facility] PRN Reason: Protocol Last Admin: 04/15/17 17:16 Dose: Not Given Zaleplon (Sonata) 10 mg PO HS [facility] Last Admin: 04/17/17 21:38 Dose: 10 mg Zinc Sulfate (Zinc Sulfate 220 Mg Cap) 220 mg PO DAILY [facility] Last Admin: 04/17/17 10:54 Dose: 220 mg - Labs Labs: 04/17/17 07:30 04/17/17 07:30 PT 21.9 Seconds (9.9-11.8) H 04/18/17 07:52 INR 2.03 (0.93-1.08) H 04/18/17 07:52 - Constitutional Appears: Well, Non-toxic, No Acute Distress - Extremities Exam Additional comments: Lower extremity focused exam: DERM: Pitting edema to legs bilateral, localized erythema to mid-calf bilateral. Left posterior distal 1/2 of leg superficial ulceration measuring 13 x 6.3cm with minor sanguinous drainage noted. Absent undermining on a granular base with moderate jamila-wound macerations. Anterior leg stable scabs noted. Right distal medial leg, resolved re-epithelialized ulcer base. Vasc: Non-palpable pedal pulses due to edema b/l, TG warm to warm, CFT < 3 sec to all digits, +1 pitting edema Neuro: grossly diminished MUSC: pain on palpation of posterior and medial legs b/l - Neurological Exam Neurological Exam: Alert, Awake, Oriented x3 - Psychiatric Exam Psychiatric exam: Normal Affect, Normal Mood - Skin Skin Exam: Normal Color, Warm Assessment and Plan - Assessment and Plan (Free Text) Assessment: 57 year old male seen at bedside in psych for left superficial venous stasis ulcerations Plan: patient evaluated and seen at bedside seen at bedside with attending Dr. Zavaleta Labs and vitals reviewed; afebrile, absent leukocytosis continue IV abx per ID-imipenem cleansed left lower extremity with saline. Left leg dressed with xeroform, ABD, kerlix, and YAYO right leg YAYO bandage removed Patient encouraged to continue with physical therapy podiatry will continue to monitor while patient remains in house patient stable from podiatry standpoint and instructed to follow up in wound care center as outpatient <Parish Zavaleta - Last Filed: 04/20/17 13:03> Objective - Vital Signs/Intake and Output Vital Signs (last 24 hours): Temp Pulse Resp BP Pulse Ox 96.7 F L 53 L 18 118/69 62 L 04/19/17 07:00 04/20/17 09:39 04/19/17 07:00 04/20/17 09:39 04/19/17 15:00 - Medications Medications: Current Medications Acetaminophen (Tylenol 325mg Tab) 650 mg PO Q4 PRN PRN Reason: Pain, moderate (4-7) Last Admin: 04/16/17 17:31 Dose: 650 mg Al Hydrox/Mg Hydrox/Simethicone (Maalox Plus 30 Ml) 30 ml PO DAILY PRN PRN Reason: Upset Stomach Arformoterol Tartrate (Brovana) 15 mcg IH [id number] [facility] Last Admin: 04/20/17 07:31 Dose: Not Given Budesonide (Pulmicort Respules) 0.25 mg IH [id number] [facility] Last Admin: 04/20/17 07:31 Dose: Not Given Clonidine HCl (Catapres) 0.1 mg PO BID [facility] Last Admin: 04/20/17 09:37 Dose: 0.1 mg Clonidine HCl (Catapres) 0.1 mg PO Q6 PRN PRN Reason: give for bp higher than 170 Diltiazem HCl (Cardizem Cd) 180 mg PO DAILY [facility] Last Admin: 04/20/17 09:37 Dose: 180 mg Docusate Sodium (Colace) 100 mg PO TID [facility] Last Admin: 04/20/17 09:38 Dose: 100 mg Duloxetine HCl (Cymbalta) 60 mg PO DAILY [facility] Last Admin: 04/20/17 09:38 Dose: 60 mg Enoxaparin Sodium (Lovenox) 80 mg SC Q12H [facility] PRN Reason: Protocol Last Admin: 04/20/17 11:56 Dose: 80 mg Finasteride (Proscar) 5 mg PO DAILY [facility] Last Admin: 04/20/17 09:38 Dose: 5 mg Hydralazine HCl (Apresoline) 10 mg PO TID [facility] Last Admin: 04/20/17 09:37 Dose: 10 mg Insulin Human Lispro (Humalog Low) 1 units SC ACHS [facility] PRN Reason: Protocol Last Admin: 04/20/17 08:19 Dose: Not Given Levothyroxine Sodium (Synthroid) 75 mcg PO 0600 [facility] Last Admin: 04/20/17 09:40 Dose: 75 mcg Lidocaine (Lidoderm) 2 ea TD DAILY [facility] Last Admin: 04/20/17 09:50 Dose: 2 ea Magnesium Hydroxide (Milk Of Magnesia) 30 ml PO DAILY PRN PRN Reason: Constipation Magnesium Oxide (Mag-Ox) 400 mg PO BID [facility] Last Admin: 04/20/17 09:38 Dose: 400 mg Metoprolol Tartrate (Lopressor) 25 mg PO BID [facility] Last Admin: 04/20/17 09:39 Dose: Not Given Multivitamins/Minerals (Therapeutic-M Tab) 1 tab PO 0800 [facility] Last Admin: 04/20/17 09:40 Dose: 1 tab Nystatin (Nystop Topical Powder) 1 gm TOP Q6H PRN PRN Reason: for redness on abdominal folds Olopatadine HCl (Patanol 0.1% Opht Soln) 1 ml OU DAILY [facility] Last Admin: 04/20/17 09:50 Dose: 1 drop Ondansetron HCl (Zofran Inj) 4 mg IM Q6 PRN PRN Reason: Nausea/Vomiting Oxycodone HCl (Oxycontin Extended Release Tab) 80 mg PO Q6H [facility] Last Admin: 04/20/17 11:43 Dose: 80 mg Oxycodone/Acetaminophen (Percocet 5/325 Mg Tab) 2 tab PO Q4H PRN PRN Reason: Pain, moderate (4-7) Stop: 04/20/17 19:05 Last Admin: 04/20/17 11:42 Dose: 2 tab Pantoprazole Sodium (Protonix Ec Tab) 40 mg PO 0600,1600 [facility] Last Admin: 04/20/17 09:39 Dose: 40 mg Warfarin Sodium (Coumadin) 7.5 mg PO 1800 [facility] PRN Reason: Protocol Last Admin: 04/15/17 17:16 Dose: Not Given Warfarin Sodium (Coumadin) 10 mg PO 1800 [facility] PRN Reason: Protocol Zaleplon (Sonata) 10 mg PO HS [facility] Last Admin: 04/19/17 21:55 Dose: 10 mg Zinc Sulfate (Zinc Sulfate 220 Mg Cap) 220 mg PO DAILY [facility] Last Admin: 04/20/17 09:38 Dose: 220 mg - Labs Labs: 04/17/17 07:30 04/17/17 07:30 PT 14.0 Seconds (9.9-11.8) H 04/20/17 07:00 INR 1.30 (0.93-1.08) H 04/20/17 07:00 Attending/Attestation - Attestation I have personally seen and examined this patient.: Yes I have fully participated in the care of the patient.: Yes I have reviewed all pertinent clinical information, including history, physical exam and plan: Yes
[2017-04-18] MEDS: diltiaZEM 180 mg/24 Hours CD Cap PO SCH (09:35)
[2017-04-18] MEDS: Lidocaine 5% Patch TD SCH (09:36)
[2017-04-18] MEDS: Magnesium Oxide 400 mg Tab UD PO SCH ×2 (09:38→17:28)
[2017-04-18] MEDS: Multivitamin With Minerals Tab PO SCH (09:38)
[2017-04-18 09:41] VITALS: RESP 18
[2017-04-18] MEDS: Arformoterol 15 mcg/2 ml Inh Sol IH SCH ×2 (13:40→22:32)
[2017-04-18] MEDS: Budesonide 0.25 mg/2 ml Inhal Susp UD IH SCH ×2 (13:40→22:32)
[2017-04-19] MEDS: oxyCODONE 80 mg ER Tab (oxyCONTIN) PO SCH ×4 (01:30→17:33)
[2017-04-19] MEDS: Oxycodone/Acetaminophen 5/325 mg Tab PO PRN ×4 (01:31→17:19)
[2017-04-19] MEDS: Insulin Lispro (humaLOG) LOW Coverage SC SCH ×4 (06:01→17:16)
[2017-04-19 08:11] LABS: INR 1.53 (0.93-1.08)
--- NOTE | 2017-04-19 08:33 | PCM.PYCHPN ---
Psychiatric Progress Note - Psychiatric Progress Note Patient seen today, length of contact: 25 minute Patient Chief Complaint: "better" Problems Identified/Issues Discussed: I reviewed recent notes and met with patient at bedside. He remains alert and oriented x3 and presents as calm and cooperative. Can communicate needs well. He reports his mood is improving, he is not hopeless or suicidal. States "I am thinking of things to improve and help myself. I haven't had these thoughts in a long time". Affect is pleasant and engaged during our interview. Thought process is coherent and responses are relevant to questioning. Patient continues to deny recurrence of nausea and vomiting. He is tolerating his medications and denies any side effects. There were no behavioral issues over the weekend. Diagnostic Results: rule out major depressive disorder Rule out mood disorder due to general medical condition Rule out anxiety due to general medical condition Rule out adjustment disorder with depressed and anxious mood Medication Change: No ( ) Medical Record Reviewed: Yes (reports, labs, vitals, notes) Mental Status Examination - Cognitive Function Orientation: Person, Place, Situation, Time Memory: Intact Attention: WNL Concentration: Poor Association: WNL Fund of Knowledge: WNL - Mood Mood: Depressed ("doing better") - Affect Affect: Constricted (but more reactive and mood congruent, pleasant) - Speech Speech: Appropriate - Formal Thought Process Formal Thought Process: No Impairment - Suicidal Ideation Suicidal Ideation: No - Homicidal Ideation Homicidal Ideation: No Goal/Treatment Plan - Goal/Treatment Plan Need for Continued Stay: Remain at risks for inpatient hospitalization, Severe depression anxiety, Discharge may exacerbated symptoms, Severe functional impairment Progress Toward Problem(s) and Goals/Treatment Plan: * c/w current tx and plan * Appreciate f/u by Erickson Stone on 04/18/17~c/w ABX, Podiatry will continue to follow * Spoke with Damaris, Nursing [facility] Inspector on 04/19/17 regarding patient's MRSA status. Patient is permitted to be on the psychiatric unit provided precautions are made to isolate patient in his room, away from other patients. * Vitals reviewed and noted below: Selected Entries 04/18/17 04/18/17 04/18/17 13:55 16:54 17:28 Pulse Rate 64 54 L 54 L Blood Pressure 118/74 127/83 127/83 04/18/17 04/18/17 17:29 17:30 Pulse Rate 54 L 54 L Blood Pressure 127/83 127/83 * New weekend labs noted below: 04/19/17 07:00 PT 16.5 H INR 1.53 H 04/18/17 07:52 PT 21.9 H INR 2.03 H Estimated Date of D/C: 04/20/17 (we'll monitor closely)
[2017-04-19] MEDS: Lidocaine 5% Patch TD SCH (09:59)
[2017-04-19] MEDS: Pantoprazole 40 mg EC Tab PO SCH ×2 (10:01→17:19)
[2017-04-19] MEDS: Magnesium Oxide 400 mg Tab UD PO SCH ×2 (10:02→17:19)
[2017-04-19] MEDS: diltiaZEM 180 mg/24 Hours CD Cap PO SCH (10:02)
[2017-04-19] MEDS: Levothyroxine 75 MCG TAB PO SCH (10:02)
[2017-04-19] MEDS: Multivitamin With Minerals Tab PO SCH (10:02)
[2017-04-19] MEDS: Olopatadine 0.1% Opht Sol OU SCH (10:03)
[2017-04-19 10:10] VITALS: PULSE 53
[2017-04-19] MEDS: Arformoterol 15 mcg/2 ml Inh Sol IH SCH ×2 (14:56→22:53)
[2017-04-19] MEDS: Budesonide 0.25 mg/2 ml Inhal Susp UD IH SCH ×2 (14:57→22:53)
[2017-04-19 16:05] VITALS: TEMP 96.7; O2SAT 62
[2017-04-20] MEDS: oxyCODONE 80 mg ER Tab (oxyCONTIN) PO SCH ×3 (00:39→11:43)
[2017-04-20] MEDS: Oxycodone/Acetaminophen 5/325 mg Tab PO PRN ×3 (00:39→11:42)
[2017-04-20] MEDS: Arformoterol 15 mcg/2 ml Inh Sol IH SCH (07:31)
[2017-04-20] MEDS: Budesonide 0.25 mg/2 ml Inhal Susp UD IH SCH (07:31)
[2017-04-20 07:41] LABS: INR 1.3 (0.93-1.08)
[2017-04-20] MEDS: Insulin Lispro (humaLOG) LOW Coverage SC SCH (08:19)
[2017-04-20] MEDS ORDERED: Unna Boot TOP ONE (09:16)
[2017-04-20] MEDS: diltiaZEM 180 mg/24 Hours CD Cap PO SCH (09:37)
[2017-04-20] MEDS: Magnesium Oxide 400 mg Tab UD PO SCH (09:38)
[2017-04-20] MEDS: Pantoprazole 40 mg EC Tab PO SCH (09:39)
[2017-04-20 09:40] VITALS: BP 118/69
[2017-04-20] MEDS: Levothyroxine 75 MCG TAB PO SCH (09:40)
[2017-04-20] MEDS: Multivitamin With Minerals Tab PO SCH (09:40)
[2017-04-20] MEDS: Olopatadine 0.1% Opht Sol OU SCH (09:50)
[2017-04-20] MEDS: Lidocaine 5% Patch TD SCH (09:50)
--- NOTE | 2017-04-20 10:29 | PN ---
DATE: 04/17/2017 The patient complained of nausea, vomiting, headache, not feeling well. The patient currently on psy floor. There is no fever, no chills. No new medications and no diarrhea. PHYSICAL EXAMINATION: VITAL SIGNS: On 04/17, temperature 97.5, heart rate 55, blood pressure 130/77, respirations 20. HEAD AND NECK: Normal. No JVD, no thyromegaly. CHEST: Clear, good air entry. CARDIAC: First sound, second sound normal. ABDOMEN: Soft, obese, nontender. EXTREMITIES: Edema bilateral with lymphedema and both legs are wrapped. The patient also seems very morbid obese and has difficult ambulation. LABORATORY STUDIES: White count 6.9, hemoglobin 13, hematocrit 38.2, platelets is 159. His chemistr y shows sodium 136, potassium 4, chloride 97, bicarb 31, BUN 25, creatinine 1.2, blood sugar 112. Li martín functions test is normal, alk phos is 150. Amylase, lipase is normal. IMPRESSION AND PLAN: 1. Acute gastroenteritis, etiology unclear, probably patient could have some and what we will do, we will give the patient Zofran. We will get labs. We will get CAT scan of the abdomen and we w ill continue followup on that. 2. Chronic back pain, chronic osteoarthritis, left knee pain. Continue MS Contin. Continue oxycodo ne and OxyContin. Seems doing well. 3. Hypertension, diabetes, chronic obstructive pulmonary disease, morbid obesity, obstructive sleep apnea, chronic lymphedema, bilateral leg cellulitis. Plan is patient is stable. Continue current tr eatment. 4. Hypothyroidism, prostate enlargement. Continue Proscar, Synthroid. Continue multivitamins. Con tinue gastrointestinal and deep vein thrombosis prophylaxis. We will follow up the patient clinicall y. 5. The patient has depression and anxiety. Seen by psychiatrist. Currently on Cymbalta 60 mg p.o. daily. Seems stable, mood better, but concerned about his being physically ill. Yvon Gonzalez MD cc: [phone] TT: 04/20/2017 10:28:57 Confirmation # [id number] Dictation # [id number] en
[2017-04-20] MEDS ORDERED: Enoxaparin 80 mg Syringe SC SCH (10:30)
--- NOTE | 2017-04-20 10:35 | PN ---
DATE: 04/18/2017 The patient seems better today. No vomiting. He feels better. No other complaint. CT of the head was negative. He feels fine and no new complaint. PHYSICAL EXAMINATION: VITAL SIGNS: On the , temperature 98, heart rate 54, blood pressure 127/83, respirations 18. HEAD AND NECK: Normal. No JVD. No thyromegaly. CHEST: Clear, good air entry. CARDIAC: First sound, second sound normal. ABDOMEN: Soft, obese, nontender. EXTREMITIES: Bilateral leg edema with both legs wrapped. NEUROLOGIC: Normal, except the patient is morbidly obese, sitting in the bed. REPORTS: As I mentioned, INR was 2.03. His CT abdomen was negative. The patient also had head CT, which was negative and also seen by Dr. Bhatia. The ultrasound of the gallbladder they said questi onable small dependent calculi, otherwise no cholecystitis, negative Rios. IMPRESSION AND PLAN: 1. Abdominal pain, nausea. Resolved. Seen by GI. The patient is stable. Continue current treatme nt, observe. Lora p.r.n., Protonix. 2. Chronic deep venous thrombosis, pulmonary embolism, Henna filter. We are going to continue to observe PT/INR. 3. Hypertension, congestive heart failure, chronic obstructive pulmonary disease, obstructive sleep apnea, morbid obesity, chronic back pain, chronic knee pain. Continue current therapy. 4. Hypothyroidism, depression and anxiety. Continue Synthroid. Continue Cymbalta. 5. Morbid obesity. We discussed with the patient he needs bariatric surgery and we will continue cu rrent therapy. Repeat PT/INR. Monitor PT/INR. Yvon Gonzalez MD cc: [phone] TT: 04/20/2017 10:34:33 Confirmation # [id number] Dictation # [id number] en
--- NOTE | 2017-04-20 16:09 | PN ---
DATE: 04/19/2017 The patient is clinically stable. No new complaints. No nausea, no vomiting. PHYSICAL EXAMINATION: VITAL SIGNS: On the 25th, temperature 98, heart rate 53, blood pressure 118/69. HEAD AND NECK: Normal. No JVD, no thyromegaly. CHEST: Clear, good air entry. CARDIAC: First and second sounds are normal. ABDOMEN: Soft, obese, nontender. EXTREMITIES: Bilateral leg edema with lymphedema of both legs. NEUROLOGIC: Normal. IMPRESSION AND PLAN: 1. Bilateral leg cellulitis treated, received antibiotic. Continue local wound care. The patient's legs are wrapped. 2. Chronic obstructive pulmonary disease, obstructive sleep apnea, hypertension, congestive heart fa ilure. Continue Lasix. Continue current medications. 3. Acute renal failure, resolved. The patient off angiotensin-converting enzyme inhibitors or angio tensin II receptor blockers. Continue to observe. 4. Depression. Continue Cymbalta. Seems to be doing well. We will follow up with the psychiatrist . 5. Nausea, vomiting, abdominal pain resolved. Continue Protonix, and continue Pepcid. 6. Hypothyroidism. 7. Chronic back pain, chronic knee pain. The patient does have OxyContin, oxycodone for pain, and c ontinue levothyroxine. PLAN: Repeat PT/INR, followup. Continue current therapy. Yvon Gonzalez MD cc: [phone] TT: 04/20/2017 10:54:57 Confirmation # [id number] Dictation # [id number] alex
--- NOTE | 2017-04-20 16:51 | PN ---
DATE: 04/20/2017 Seen and examined at the bedside earlier today. The patient has had no further episodes of nausea or vomiting. He never had abdominal pain. He reports having good bowel movement with relief. No report s of bleeding. No new complaints. VITAL SIGNS: Blood pressure 118/69, pulse 53. LABORATORY DATA: Labs today, PT is 14.0, INR 1.30. PHYSICAL EXAMINATION: HEENT: Sclerae is anicteric. NECK: Supple. CARDIAC: S1, S2. LUNGS: Decreased breath sounds but good air entry. No rales or wheeze. ABDOMEN: With bowel sounds, soft, nontender, no rebound or guarding. EXTREMITIES: Positive bilateral edema. They are wrapped with Steven. NEUROLOGIC: Awake, alert, and oriented. ASSESSMENT: Resolved nausea, no abdominal pain. The patient had a gallbladder ultrasound that showed a questionable gallstones. No evidence of cholecystitis. It was a limited exam due to the body hab itus and bowel gas. His CT scan of abdomen and pelvis also showed no acute abnormality. It did show small right renal cysts and umbilical hernia and subcutaneous varices. He also has history of chroni c DVT and pulmonary embolism, has Maple filter, morbid obesity, history of colon polyps and hype rtension. PLAN: Continue current regimen. The patient is aware that he would benefit from an endoscopy to fol lowpee his Carr and colonoscopy in view of the villous adenoma. Continue current medical regimen. The patient is likely to be discharged home today. The patient was seen and discussed with Dr. Cheryle richardson. Patsy DUNNE cc: [id number] TT: 04/20/2017 16:50:44 Confirmation # [id number] Dictation # [id number] alex
== END 2017-04-20 17:13 | disposition home or self-care (01) | DRG 881 ==
LOC: PSYC 17:15
PROVIDERS: ADMIT Psychiatry & Neurology Psychiatry; ATTEND Psychiatry & Neurology Psychiatry
DX: F32.9 Major depressive disorder, single episode, unspecified (principal); I13.0 Hypertensive heart and chronic kidney disease with heart failure and stage 1 through stage 4 chronic kidney disease, or unspecified chronic kidney disease; L03.115 Cellulitis of right lower limb; L03.116 Cellulitis of left lower limb; Z68.43 Body mass index [BMI] 50.0-59.9, adult; E11.43 Type 2 diabetes mellitus with diabetic autonomic (poly)neuropathy; K31.84 Gastroparesis; I50.9 Heart failure, unspecified; L89.309 Pressure ulcer of unspecified buttock, unspecified stage; E11.622 Type 2 diabetes mellitus with other skin ulcer; L97.929 Non-pressure chronic ulcer of unspecified part of left lower leg with unspecified severity; I82.509 Chronic embolism and thrombosis of unspecified deep veins of unspecified lower extremity; E11.40 Type 2 diabetes mellitus with diabetic neuropathy, unspecified; F06.30 Mood disorder due to known physiological condition, unspecified; E66.01 Morbid (severe) obesity due to excess calories; I87.8 Other specified disorders of veins; J44.9 Chronic obstructive pulmonary disease, unspecified; G47.33 Obstructive sleep apnea (adult) (pediatric); E03.9 Hypothyroidism, unspecified; M19.90 Unspecified osteoarthritis, unspecified site; F41.1 Generalized anxiety disorder; F06.4 Anxiety disorder due to known physiological condition; N18.9 Chronic kidney disease, unspecified; K52.9 Noninfective gastroenteritis and colitis, unspecified; I89.0 Lymphedema, not elsewhere classified; N40.0 Benign prostatic hyperplasia without lower urinary tract symptoms; Z96.653 Presence of artificial knee joint, bilateral; G89.29 Other chronic pain; M54.9 Dorsalgia, unspecified; Z86.010 Personal history of colon polyps; Z86.711 Personal history of pulmonary embolism; Z79.4 Long term (current) use of insulin

== ENCOUNTER 2017-06-20 09:21 | Inpatient (IN) | payer MEDICARE, OTHER ==
[2017-06-20] MEDS ORDERED: Vancomycin 1gm in NS 250ml 1 GM/250 ML BAG IVPB STA (09:35)
[2017-06-20 09:37] VITALS: BMI 56.3
[2017-06-20] MEDS ORDERED: oxyCODONE 80 mg ER Tab (oxyCONTIN) PO STA (09:41)
--- NOTE | 2017-06-20 09:41 | ED PDOC ---
Arrival/HPI - General Chief Complaint: Lower Extremity Problem/Injury Time Seen by Provider: 06/20/17 09:24 Historian: Patient - History of Present Illness Time/Duration: Other (Several days) Symptom Onset: Gradual Symptom Course: Worsening Quality: Aching Severity Level: Severe Activities at Onset: Rest Associated Symptoms (Text): 06/20/17 09:38 Patient has severe bilateral chronic ulcers and cellulitis of his lower extremities. Patient reports that the ulcers and cellulitis on his left lower leg have never been as bad as they currently are. He has weeping draining ulcers of the calf and osei on the left with severe erythema and warmth. He reports this is new over the last several days. No fever. No streaking. Past Medical History - Infectious Disease Hx of Infectious Diseases: None - Tetanus Immunization Tetanus Immunization: Unknown - Reproductive Currently : No - Cardiac Hx Congestive Heart Failure: Yes Hx Hypertension: Yes - Pulmonary Hx Chronic Obstructive Pulmonary Disease (COPD): Yes - Neurological Hx Neurological Disorder: No - HEENT Hx HEENT Disorder: No - Renal Hx Renal Disorder: Yes (required HD in 2016 briefly) - Endocrine/Metabolic Hx Diabetes Mellitus Type 2: Yes Hx Hypothyroidism: Yes - Hematological/Oncological Hx Blood Disorders: No - Integumentary Hx Dermatological Disorder: Yes Hx Cellulitis: Yes (BLE) Other/Comment: both leggs discolored - Musculoskeletal/Rheumatological Hx Arthritis: Yes - Gastrointestinal Hx Gastrointestinal Disorders: Yes - Genitourinary/Gynecological Hx Genitourinary Disorders: No - Psychiatric Hx Depression: Yes Hx Substance Use: No - Surgical History Hx Orthopedic Surgery: Yes (bilateral knee replacement) Other/Comment: total left knee - 1998. right ankle screws - 1987. right hip jason - 1982 - Anesthesia Hx Anesthesia: Yes Hx Anesthesia Reactions: No Hx Malignant Hyperthermia: No - Suicidal Assessment Feels Threatened In Home Enviroment: No Family/Social History - Physician Review Nursing Documentation Reviewed: Yes Family/Social History: Unknown Family HX Smoking Status: Never Smoked Hx Alcohol Use: No Hx Substance Use: No Hx Substance Use Treatment: No Allergies/Home Meds Allergies/Adverse Reactions: Allergies No Known Allergies Allergy (Verified 06/20/17 09:36) Home Medications: Home Meds Medication Instructions Recorded Confirmed Furosemide [Lasix] 80 mg PO BID 06/20/17 06/20/17 MetFORMIN [glucOPHAGE] 1,000 mg PO BID 06/20/17 06/20/17 Oxycodone HCl [Oxycontin] 80 mg PO QD6 06/20/17 06/20/17 Warfarin [Coumadin] 11 mg PO DAILY 06/20/17 06/20/17 Review of Systems - Physician Review All systems were reviewed & negative as marked: Yes - Review of Systems Constitutional: Fatigue. absent: Fevers Respiratory: Normal Cardiovascular: Normal Gastrointestinal: Normal Neurological: Normal Physical Exam Vital Signs Temp Pulse Resp BP Pulse Ox 06/20/17 12:52 86 20 145/75 96 06/20/17 09:32 97.8 F 87 94 H 143/93 H 18 L 06/20/17 09:22 97.8 F 87 16 143/93 H 96 Temperature: Afebrile Blood Pressure: Hypertensive Pulse: Regular Respiratory Rate: Normal Appearance: Positive for: Well-Appearing, Non-Toxic, Uncomfortable, Other ( Morbidly obese and uncomfortable) Pain Distress: Moderate Mental Status: Positive for: Alert and Oriented X 3 - Systems Exam Head: Present: Atraumatic, Normocephalic Pupils: Present: PERRL Extroacular Muscles: Present: EOMI Conjunctiva: Present: Normal Mouth: Present: Moist Mucous Membranes Pharnyx: No: ERYTHEMA, EXUDATE, TONSILS ENLARGED Neck: Present: Normal Range of Motion Respiratory/Chest: Present: Clear to Auscultation, Good Air Exchange, Decreased Breath Sounds. No: Respiratory Distress, Accessory Muscle Use Cardiovascular: Present: Regular Rate and Rhythm, Normal S1, S2. No: Murmurs Abdomen: Present: Normal Bowel Sounds. No: Tenderness, Distention, Peritoneal Signs, Rebound, Guarding Upper Extremity: Present: Normal Inspection. No: Cyanosis, Edema Lower Extremity: Present: Other (Severe calf and osei ulcers on the left lower leg with weeping purulent drainage severe erythema. Much smaller ulcers on the right lower extremity with no erythema or warmth or drainage) Neurological: Present: GCS=15, CN II-XII Intact, Speech Normal, Motor Func Grossly Intact Skin: Present: Warm, Dry, Normal Color, Other (Ulcers and cellulitis as above, large left buttocks decubitus.). No: Rashes Psychiatric: Present: Alert, Oriented x 3, Normal Insight, Normal Concentration Medical Decision Making ED Course and Treatment: 06/20/17 10:04 EKG shows normal sinus rhythm rate approximately [address] or T-wave changes 06/20/17 10:31 Chest one view shows poor quality films with cardiomegaly and increased markings - Lab Interpretations Lab Results: 06/20/17 09:30 06/20/17 10:20 Lab Results 06/20/17 10:20: Sodium 136, Chloride 97 L, Potassium 3.7, Carbon Dioxide 31, Anion Gap 12, BUN 17, Creatinine 1.1, Est GFR ( Amer) > 60, Est GFR (Non- Af Amer) > 60, Random Glucose 127 H, Calcium 9.1, Phosphorus 2.7, Magnesium 1.8 , Total Bilirubin 0.8, AST 17, ALT 17, Alkaline Phosphatase 160 H, Total Protein 8.0, Albumin 3.9, Globulin 4.1, Albumin/Globulin Ratio 1.0 L 06/20/17 09:30: pO2 58 H, VBG pH 7.42, VBG pCO2 52.0, VBG HCO3 33.7 H, VBG Total CO2 35.3 H, VBG O2 Sat (Calc) 94.8 H, VBG Base Excess 7.8 H, VBG Potassium 4.3, Sodium 134.0, Chloride 97.0 L, Glucose 128 H, Lactate 0.9, FiO2 21.0, Venous Blood Potassium 4.3 06/20/17 09:30: PT 28.8 H, INR 2.67 H, APTT 61.8 H 06/20/17 09:30: WBC 8.2, RBC 4.11, Hgb 11.7 L, Hct 35.2 L, MCV 85.6, MCH 28.5, MCHC 33.2, RDW 14.1, Plt Count 187, MPV 11.7 H, Gran % 75.6 H, Lymph % (Auto) 13.7 L, Stafford % (Auto) 7.8 H, Eos % (Auto) 2.5, Baso % (Auto) 0.4, Gran # 6.17, Lymph # 1.1 L, Stafford # 0.6, Eos # 0.2, Baso # 0.03 - RAD Interpretation Radiology Orders: 06/20/17 09:35 CHEST PORTABLE [RAD] Stat - Medication Orders Current Medication Orders: Insulin Human Regular (Humulin R Low) 0 units SC ACHS SANDRINE PRN Reason: Protocol Discontinued Medications Vancomycin HCl (Vancomycin 1gm) 1 gm in 250 mls @ 167 mls/hr IVPB STAT STA PRN Reason: Protocol Stop: 06/20/17 11:04 Last Admin: 06/20/17 10:21 Dose: 167 mls/hr Oxycodone HCl (Oxycontin Extended Release Tab) 80 mg PO STAT STA Stop: 06/20/17 09:42 Last Admin: 06/20/17 10:00 Dose: 80 mg Re-Assess: BIANCA Pain Assessment Document 06/20/17 10:30 SRE (Rec: 06/20/17 13:25 SRE [id number]) Pain Reassessment Is this a pain reassessment? Yes Sleep Is patient sleeping during reassessment? No Presence of Pain Presence of Pain Yes Pain Scale Used Pain Scale Used Numeric Location Pain Location Body Site Leg Description Description Intermittent Alleviating Factors/Management Medication Techniques Alleviating Factors Medication Disposition/Present on Arrival - Present on Arrival Any Indicators Present on Arrival: No History of DVT/PE: Yes History of Uncontrolled Diabetes: Yes Urinary Catheter: Yes History of Decub. Ulcer: Yes (b/l lower legs) History Surgical Site Infection Following: None - Disposition Have Diagnosis and Disposition been Completed?: Yes Diagnosis: Cellulitis, PVD (peripheral vascular disease), Leg ulcer, Diabetes mellitus, Leg wound, left Disposition: HOSPITALIZED Disposition Time: 10:51 Patient Plan: Admission Patient Problems: Current Active Problems Problem Status Onset Cellulitis Acute Leg ulcer Acute PVD (peripheral vascular disease) Acute Diabetes mellitus Chronic Leg wound, left Chronic Condition: FAIR
[2017-06-20 10:14] LABS: VENOUS BLOOD GAS BASE EXCESS 7.8 mmol/L (0.0-2.0); VENOUS BLOOD PH 7.42 (7.32-7.43)
[2017-06-20 10:15] LABS: BASO # 0.03 K/mm3 (0.0-2.0); BASO % 0.4 % (0.0-3.0); EOS # 0.2 (0.0-0.7); EOS % 2.5 % (1.5-5.0); GRAN # 6.17 (1.4-6.5); GRAN % 75.6 % (50.0-68.0); HEMATOCRIT 35.2 % (42.0-52.0); LYMPH # 1.1 (1.2-3.4); LYMPH % 13.7 % (22.0-35.0); MEAN CELL VOLUME 85.6 fl (80.0-105.0); MEAN CORPUSCULAR HEMOGLOBIN 28.5 pg (25.0-35.0); MEAN CORPUSCULAR HGB CONC 33.2 g/dl (31.0-37.0); MEAN PLATELET VOLUME 11.7 fl (7.0-11.0); MONO # 0.6 (0.1-0.6); MONO % 7.8 % (1.0-6.0); RED CELL DISTRIBUTION WIDTH 14.1 % (11.5-14.5); WHITE BLOOD COUNT 8.2 10^3/ul (4.5-11.0)
[2017-06-20 10:29] LABS: INR 2.67 (0.93-1.08); PARTIAL THROMBOPLASTIN TIME 61.8 Seconds (23.7-30.8)
[2017-06-20 10:47] LABS: ALKALINE PHOSPHATASE 160 U/L (38-133); ALT/SGPT 17 U/L (7-56); AST/SGOT 17 U/L (15-59); BILIRUBIN,TOTAL 0.8 mg/dL (0.2-1.3); BLOOD UREA NITROGEN 17 mg/dL (7-21); CALCIUM 9.1 mg/dL (8.4-10.5); CARBON DIOXIDE 31 mmol/L (21-33); CHLORIDE 97 mmol/L (98-107); GFR AFRICAN-AMERICAN > 60; GLUCOSE,RANDOM 127 mg/dL (70-110); MAGNESIUM 1.8 mg/dL (1.7-2.2); PHOSPHOROUS 2.7 mg/dL (2.5-4.5); POTASSIUM 3.7 mmol/L (3.6-5.0); SODIUM 136 mmol/L (132-148)
--- NOTE | 2017-06-20 14:02 | RAD ---
HISTORY: Sepsis Patient COMPARISON: 02/08/2017 FINDINGS: LUNGS: Poor inspiration with low lung volumes, crowded bronchovascular markings and mild bibasilar atelectasis left greater than right. Developing lower lobe infiltrates could be excluded with followup radiographs. Note that the lung apices are partially obscured by overlying facial soft tissue artifact PLEURA: No significant pleural effusion identified, no pneumothorax apparent. CARDIOVASCULAR: Cardiomegaly. OSSEOUS STRUCTURES: No significant abnormalities. VISUALIZED UPPER ABDOMEN: Normal. OTHER FINDINGS: None. IMPRESSION: Poor inspiration with low lung volumes, crowded bronchovascular markings and mild bibasilar atelectasis left greater than right. Developing lower lobe infiltrates could be excluded with followup radiographs.
[2017-06-20] MEDS ORDERED: Meropenem 1g/NS 100mL IVPB 1 GM/100 ML PIGGYBACK IVPB SCH (15:13)
[2017-06-20] MEDS ORDERED: Oxycodone/Acetaminophen 10/325 mg Tab PO PRN (15:32)
[2017-06-20] MEDS: Levothyroxine 75 MCG TAB PO SCH (16:23)
[2017-06-20] MEDS ORDERED: Insulin Reg-LOW-Coverage SC SCH (16:30)
[2017-06-20] MEDS: Potassium Chloride 20 mEq ER Tab PO SCH (16:40)
[2017-06-20] MEDS: Pantoprazole 40 mg EC Tab PO SCH (16:40)
[2017-06-20] MEDS: Insulin Reg-MEDIUM-Coverage SC SCH ×2 (16:58→21:53)
[2017-06-20] MEDS ORDERED: Fluticasone-Salmeterol 250-50mcg Diskus IH SCH (18:00)
--- NOTE | 2017-06-20 18:08 | CP.PCM.HP ---
<RajwinderFbaio hutchinson - Last Filed: 06/20/17 17:52> History of Present Illness - History of Present Illness History of Present Illness: Internal Medicine Note for Dr. Corral - JOSE, DO: PGY - 1 HPI: 57 M w/ PMHx specifically significant for morbid obesity, recurrent ulcers on b/l LE and buttocks, and CHF, presents to the ED with c/o LE pain. Patient states that he has had pressure ulcers on his b/l calves and L osei for the past two weeks, but he did not want to come to the hospital. Last night, he could not sleep due to the pain, and so he decided to come in. Patient states that not laying on his back makes the pain better, and keeping his calves from rubbing against each other also makes it better. He has home nursing to address his chronic wounds. He states that the wounds are more painful than they ever have been. Pt also admits to shaking chills both at home and in the ER, but denies any other symptoms. PSHx: B/l knee surgery, thigh surgery, ankle surgery PMHx: Morbid obesity; Pressure ulcers on the back of thighs, buttocks, and lower legs due to immobility, CHF, HTN, HLD, DM, Hypothyroidism, Chronic Pain Allergies: NKDA Social: Lives alone, only able to walk about 20 steps before getting completely out of breath, has visiting nurses every day for wound changes, IADL very limited. denies all drugs/etoh Fam Hx: Noncontributory Meds: Metformin, Clonidine, Docusate, Finasteride, Furosemide, Levothyroxine , Lidocaine, Meoprolol, nystatin powder, Oxycontin 40mg BID, Oxycodone 5mg Q4H, Warfarin 10mg daily. ROS: Constitutional: pt denies fever, chills, generalized weakness ENT: pt denies dysphagia, otalgia, hearing deficit, rhinorrhea Eyes: pt denies sudden loss of vision, diplopia, trauma MSK: +See HPI Cardio: pt denies sob, heart murmur, cp Pulm: pt denies cough, hemoptysis, wheeze GI: pt denies loss of appetite, abdominal pain, constipation, melena, n/v/d : pt denies burning on urination, urinary frequency, hematuria, urinary urgency Neuro: pt denies paresis, paresthesia, dizziness, waggoner, numbness, tingling Derm: pt denies acute skin changes, lesions, nail changes Endo: pt denies intolerance to heat/cold, diaphoresis, night sweats, polydipsia Psych: pt denies anxiety, depression, mood changes Present on Admission - Present on Admission Any Indicators Present on Admission: No Past Patient History - Infectious Disease Hx of Infectious Diseases: None - Tetanus Immunizations Tetanus Immunization: Unknown - Past Medical History & Family History Past Medical History?: Yes - Past Social History Smoking Status: Never Smoked - CARDIAC Hx Congestive Heart Failure: Yes Hx Hypertension: Yes - PULMONARY Hx Chronic Obstructive Pulmonary Disease (COPD): Yes - NEUROLOGICAL Hx Neurological Disorder: No - HEENT Hx HEENT Problems: No - RENAL Hx Chronic Kidney Disease: Yes (required HD in 2016 briefly) - ENDOCRINE/METABOLIC Hx Diabetes Mellitus Type 2: Yes Hx Hypothyroidism: Yes - HEMATOLOGICAL/ONCOLOGICAL Hx Blood Disorders: No - INTEGUMENTARY Hx Dermatological Problems: Yes Hx Cellulitis: Yes (BLE) Other/Comment: both leggs discolored - MUSCULOSKELETAL/RHEUMATOLOGICAL Hx Falls: No - GASTROINTESTINAL Hx Gastrointestinal Disorders: Yes - GENITOURINARY/GYNECOLOGICAL Hx Genitourinary Disorders: No - PSYCHIATRIC Hx Substance Use: No - SURGICAL HISTORY Hx Orthopedic Surgery: Yes (bilateral knee replacement) Other/Comment: total left knee - 1998. right ankle screws - 1987. right hip jason - 1982 - ANESTHESIA Hx Anesthesia: Yes Hx Anesthesia Reactions: No Hx Malignant Hyperthermia: No Meds Allergies/Adverse Reactions: Allergies Allergy/AdvReac Type Severity Reaction Status Date / Time No Known Allergies Allergy Verified 06/20/17 09:36 Physical Exam - Additional Findings Additional findings: Phys Exam: VS as below Constitutional: +morbidly obese male, a&o x 4, nad Head and Neck: atraumatic, normocephalic, neck supple, no jvd, trachea midline, carotid midline, no cervical/head mass Eyes: carrol, nonicteric sclera, eom intact ENT: auditory acuity grossly intact, throat not congested, no nasal deformity Cardio: rrr, no m/r/g, no carotid bruit, nml s1, s2 Pulm: no accessory muscle use, equal nml breath sounds bilaterally, ctab Abd: s/nt/nd, nbs x 4 q, no palpable masses Derm: no rashes, no ulcers, no lesions Extr: +B/L LE are bandaged, but gross skin turgor identified; LLE toes have onychomycosis; Patient has proximal and distal pulses b/l intact. Gross B/L 3+ pitting edema. No malodor, no edema, no cyanosis, no calf tenderness Neuro: cn II-XII grossly intact, ue and le 5/5 muscle strength bilaterally, no los ue, le bilaterally and core Results - Vital Signs Recent Vital Signs: Last Vital Signs Temp 97.8 F 06/20/17 13:33 Pulse 87 06/20/17 13:33 Resp 16 06/20/17 13:33 BP 143/93 H 06/20/17 13:33 Pulse Ox 96 06/20/17 12:52 - Labs Result Diagrams: 06/20/17 09:30 06/20/17 10:20 Labs: Laboratory Results - last 24 hr 06/20/17 06/20/17 06/20/17 13:46 13:46 16:42 ESR 108 H POC Glucose (mg/dL) 106 C-React Prot High Sens > 15.00 H Assessment & Plan - Assessment and Plan (Free Text) Assessment: 57 M with PMHx of morbid obesity, CHF, and DM presents with b/l LE pressure ulcers as well as one on the osei and on bilateral buttocks Plan: 1.) Pressure Ulcers: b/l buttocks, calves; L osei - Podiatry Consult: Waqar - ID Consult: Dr. Blanco - Wound dressing changes daily - Wound care - Turn patient q 2h - ABx: Merrem, Vanc: last visit showed Pseudomonas Aeruginosa, E. Coli, and Staph Aureus in wounds - Wound Cx, Blood Cx - B/l LE X-rays - B/l LE bone scans - Hot compresses 2.) Hx/o HTN - C/w home hydralazine, lopressor - hold norvasc 3.) Hx/o CHF - Lasix 40 Daily - K-dur 10 Daily - Hold second home dose of Lasix and K-dur 4.) Hx/o Hypothyroidism - C/w Levothyroxine 5.) Hx/o Chronic Pain - Oxycontin 80 q 12 and Perc 10/325 q 6 - Hold second home dose of Oxycontin 6.) Hx/o DM - RISS Medium - Hold home Metformin 7.) Chronic DVT - Hold coumadin until Podiatry sees him - Check INR - currently therapeutic 8.) Prophylaxis - Protonix - Heparin: not therapeutic dose. Pt will not be able to tolerate SCD's Diet: Heart Healthy Dispo: Patient needs to be monitored. Case d/w Dr. Corral TKS, DO PGY - 1 <Angelica Corral - Last Filed: 06/21/17 10:41> Results - Vital Signs Recent Vital Signs: Last Vital Signs Temp 97.8 F 06/20/17 13:33 Pulse 76 06/21/17 10:07 Resp 16 06/20/17 13:33 BP 130/62 06/21/17 10:07 Pulse Ox 96 06/20/17 12:52 - Labs Result Diagrams: 06/20/17 09:30 06/20/17 10:20 Labs: Laboratory Results - last 24 hr 06/20/17 06/20/17 06/20/17 13:46 13:46 16:42 ESR 108 H POC Glucose (mg/dL) 106 C-React Prot High Sens > 15.00 H 06/20/17 06/21/17 21:47 07:09 ESR POC Glucose (mg/dL) 162 H 112 H C-React Prot High Sens Attending/Attestation - Attestation I have personally seen and examined this patient.: Yes I have fully participated in the care of the patient.: Yes I have reviewed all pertinent clinical information: Yes Notes (Text): 06/20/17 57 year old male with past medical history of chronic LE ulcers, CHF, hypothyroidism, diabetes, DVT on coumadin and chronic opiate dependency who presents with worsening bilateral lower extremity ulcerations and erythema. Podiatry and ID evaluation are requested. Xrays and bone scan are ordered. ESR /CRP are elevated. Continue with iv antibiotics as per ID and wound care as per podiatry. He has history of opiate dependence currently on very high doses of oxycontin and oxycodone at home as prescribed by his pmd. Will verify with his pharmacy his home medications. Pain management evaluation is requested as he is requesting high doses of his medications. He was counselled on risks of opiates abuse and dependency. He is on coumadin for history of DVT. INR is in therapeutic range. Continue with lasix for lower extremity edema. Continue with synthroid for hypothyroidism. He is on insulin ss for diabetes. Angelica Corral MD Hospitalist.
[2017-06-20] MEDS: Oxycodone/Acetaminophen 10/325 mg Tab PO PRN (20:17)
[2017-06-20] MEDS: Vancomycin 1gm in NS 250ml 1 GM/250 ML BAG IVPB SCH (20:18)
[2017-06-20] MEDS: Arformoterol 15 mcg/2 ml Inh Sol IH SCH (20:48)
[2017-06-20] MEDS: Budesonide 0.5 mg/2 ml Inhal Susp UD IH SCH (20:48)
[2017-06-20] MEDS: oxyCODONE 80 mg ER Tab (oxyCONTIN) PO SCH (21:11)
[2017-06-20] MEDS: Meropenem 1g/NS 100mL IVPB 1 GM/100 ML PIGGYBACK IVPB SCH (21:13)
--- NOTE | 2017-06-21 01:25 | CON ---
DATE: 06/20/2017 The patient was seen earlier today in the emergency room. CHIEF COMPLAINT: Left leg infection from several days. HISTORY OF PRESENT ILLNESS: This is a 57-year-old white male, well-known to me from multiple admissions with recurrent left leg cellulitis and with past medical history of chronic obstructive lung disease, hypertension, congestive heart failure, depression, morbid obesity with a BMI of 56, history of diabetes mellitus, hypothyroidism, history of arthritis, history of bilateral knee surgeries with replacement who has NO KNOWN ALLERGIES, admitted with left leg infection. He states he has been having fevers and chills at home and he has had a foul odor coming from his left leg. No abdominal pain, diarrhea or constipation. No bright red blood per rectum. No melena. No headaches or blurred vision. PAST MEDICAL HISTORY: Significant for morbid obesity with a BMI of 56.4, diabetes mellitus, hypertension, hypothyroidism, depression, congestive heart failure, chronic obstructive lung disease and arthritis. The patient also with a history of DVT and peripheral vascular disease and has renal disease requiring hemodialysis in the past. PAST SURGICAL HISTORY: Significant for bilateral knee replacement. ALLERGIES: THE PATIENT HAS NO KNOWN ALLERGIES. MEDICATIONS AT HOME: Include Lopressor, Emetrol, montelukast, Cozaar, gabapentin, Protonix, trazodone, hydralazine, Norvasc, metformin and Coumadin. PHYSICAL EXAMINATION VITAL SIGNS: The patient's temperature is 98, heart rate of 86, respiratory rate of 20, blood pressure is 143/93 and oxygen saturation is 96% on room air. HEENT: Within normal limits. NECK: Supple. LUNGS: Decreased breath sounds. HEART: Normal S1 and S2. ABDOMEN: Soft and nontender. EXTREMITIES: Examination of left leg reveals significant cellulitis, foul odor with areas of necrotic tissue discharge with erythema extending the entire back of his left leg. LABORATORY EXAMINATION: Reveals the white count is 8.2 and hemoglobin of 11. The patient has a sed rate of 108. Coagulation is noted. INR of 2.67. Blood gases are noted. Chemistries revealed a BUN of 17, creatinine of 1.1 with a glucose of 127, GFR is greater than 60. C-reactive protein is greater than 15. The patient had a chest x-ray which showed poor inspiration, read by Dr. Yvon Fam. The patient is currently started on vancomycin 1 g daily. ASSESSMENT AND PLAN: He is a 57-year-old male with morbid obesity with BMI of 56, diabetes, hypertension, chronic obstructive pulmonary disease, depression, hypothyroidism, arthritis, history of renal failure and hemodialysis briefly who is presenting with a severe left leg cellulitis with foul odor with elevated sedimentation rate and C-reactive protein, must rule out underlying osteomyelitis. Given the patient's BMI of 56, we will change the vancomycin to q. 12. Also concerned about renal failure, unable to give Zyvox in this scenario and given a history of methicillin-resistant Staphylococcus aureus and extended-spectrum beta-lactamase in the past, we will treat the patient with vancomycin and meropenem. We will order a bone scan since the patient's size would be difficult to get an MRI and we will make further recommendations on the availability of the cultures of the blood and wound and a bone scan given elevated sedimentation rate and C-reactive protein and given significant cellulitis that is foul odorous. We will follow closely with you. Case discussed with PMD at length. Ralph Blanco MD
--- NOTE | 2017-06-21 01:29 | CARD ---
APPROVED REPORT EKG Measurement Heart [id number] <Conclusion> Normal sinus rhythm Normal ECG
[2017-06-21] MEDS: Oxycodone/Acetaminophen 10/325 mg Tab PO PRN ×3 (01:59→13:28)
[2017-06-21] MEDS: Meropenem 1g/NS 100mL IVPB 1 GM/100 ML PIGGYBACK IVPB SCH ×3 (06:12→21:33)
[2017-06-21] MEDS: Vancomycin 1gm in NS 250ml 1 GM/250 ML BAG IVPB SCH ×2 (07:19→17:30)
--- NOTE | 2017-06-21 07:25 | CP.PCM.PN ---
<Ophelia Kim - Last Filed: 06/21/17 14:30> Subjective - Date & Time of Evaluation Date of Evaluation: 06/21/17 Time of Evaluation: 08:30 - Subjective Subjective: PGY2 Medicine note for Dr. Corral Patient seen and examined at bedside. Patient was upset about pain medication regimen reporting he was unable to sleep through the night and that he needed Oxycodone XR q6h. Patient reported the pain in his legs was worse because he was not receiving enough pain medications. He continued to report chills but denied fever, weakness, chest pain, SOB, abdominal pain, bowel/bladder complaints. Objective - Vital Signs/Intake and Output Vital Signs (last 24 hours): Temp Pulse Resp BP Pulse Ox 97.8 F 85 16 136/80 96 06/20/17 13:33 06/20/17 21:12 06/20/17 13:33 06/20/17 21:12 06/20/17 12:52 Intake and Output: 06/21/17 06/21/17 06:59 18:59 Intake Total 800 Balance 800 - Medications Medications: Current Medications Arformoterol Tartrate (Brovana) 15 mcg IH [id number] [facility] Last Admin: 06/20/17 20:48 Dose: Not Given Budesonide (Pulmicort Respules) 0.5 mg IH [id number] [facility] Last Admin: 06/20/17 20:48 Dose: Not Given Furosemide (Lasix) 80 mg PO DAILY [facility] Last Admin: 06/20/17 16:22 Dose: Not Given Gabapentin (Neurontin) 300 mg PO TID [facility] PRN Reason: Protocol Last Admin: 06/20/17 18:23 Dose: 300 mg Hydralazine HCl (Apresoline) 25 mg PO Q8 [facility] Last Admin: 06/21/17 06:12 Dose: 25 mg Meropenem 1g/NS 100mL IVPB (Meropenem 1g/Ns 100ml Ivpb) 1 gm in 100 mls @ 100 mls/hr IVPB Q8 [facility] PRN Reason: Protocol Stop: 06/29/17 22:01 Last Admin: 06/21/17 06:12 Dose: 100 mls/hr Vancomycin HCl (Vancomycin 1gm) 1 gm in 250 mls @ 167 mls/hr IVPB Q12H [facility] PRN Reason: Protocol Stop: 06/29/17 19:01 Last Admin: 06/21/17 07:19 Dose: 167 mls/hr Insulin Human Regular (Humulin R Med) 0 units SC ACHS [facility] PRN Reason: Protocol Last Admin: 06/20/17 21:53 Dose: Not Given Levothyroxine Sodium (Synthroid) 75 mcg PO DAILY [facility] Last Admin: 06/20/17 16:23 Dose: Not Given Losartan Potassium (Cozaar) 100 mg PO DAILY [facility] Last Admin: 06/20/17 16:22 Dose: Not Given Metoprolol Tartrate (Lopressor) 25 mg PO BID [facility] Last Admin: 06/20/17 17:32 Dose: Not Given Montelukast Sodium (Singulair) 10 mg PO DAILY [facility] Last Admin: 06/20/17 16:40 Dose: 10 mg Oxycodone HCl (Oxycontin Extended Release Tab) 80 mg PO Q12 [facility] Last Admin: 06/20/17 21:11 Dose: 80 mg Oxycodone/Acetaminophen (Percocet 10/325 Mg Tab) 1 tab PO Q6H PRN PRN Reason: Pain, moderate (4-7) Last Admin: 06/21/17 07:04 Dose: 1 tab Pantoprazole Sodium (Protonix Ec Tab) 40 mg PO DAILY [facility] Last Admin: 06/20/17 16:40 Dose: 40 mg Potassium Chloride (K-Dur 20 Meq Er Tab) 20 meq PO DAILY [facility] Last Admin: 06/20/17 16:40 Dose: 20 meq Trazodone HCl (Desyrel) 50 mg PO HS [facility] Last Admin: 06/20/17 21:13 Dose: 50 mg - Labs Labs: PT 28.8 Seconds (9.9-11.8) H 06/20/17 09:30 INR 2.67 (0.93-1.08) H 06/20/17 09:30 APTT 61.8 Seconds (23.7-30.8) H 06/20/17 09:30 - Additional Findings Additional findings: Phys Exam: VS as below Constitutional: +morbidly obese male, a&o x 4 Head and Neck: atraumatic, normocephalic, full ROM, no jvd, trachea midline, no cervical/head mass Eyes: nonicteric sclera, eom intact ENT: auditory acuity grossly intact, throat not congested, no nasal deformity Cardio: rrr, no m/r/g, no carotid bruit, nml s1, s2 Pulm: no accessory muscle use, equal nml breath sounds bilaterally, ctab Abd: s/nt/nd, nbs x 4 q, no palpable masses Extr: +B/L LE are bandaged, but gross skin turgor identified; LLE toes have onychomycosis; Patient has proximal and distal pulses b/l intact. Gross B/L 3+ pitting edema. No malodor, no cyanosis Neuro: cn II-XII grossly intact, ue and le 5/5 muscle strength bilaterally, no los ue, le bilaterally and core Psych: upset with pain medication regimen Assessment and Plan - Assessment and Plan (Free Text) Assessment: 57 M with PMHx of morbid obesity, CHF, and DM presents with b/l LE pressure ulcers as well as one on the osei and on bilateral buttocks Plan: 1.) Pressure Ulcers: b/l buttocks, calves; L osei - Podiatry Consult: Arloro - ID Consult: Dr. Blanco - Wound dressing changes daily - Wound care - Turn patient q 2h - ABx: Merrem day 2, Vanc day 2 last visit showed Pseudomonas Aeruginosa, E. Coli, and Staph Aureus in wounds - Wound Cx: prelim gram negative rods - Blood culture prelim negative x 2 - f/u B/l LE X-rays - f/u B/l LE bone scans - Hot compresses 2.) Hx/o HTN - Losartan 100mg po daily - Lopressor 25mg po bid - Hydralazine 25mg po q8 3.) Hx/o CHF - Lasix 80mg po Daily - K-dur 20mg po Daily 4.) Hx/o Hypothyroidism - Synthroid 75mcg po daily 5.) Hx/o Chronic Pain - Oxycontin 80 q6h and Perc 10/325 q 6 - Trazodone 50mg po hs - Pain management consulted 6.) Hx/o DM - RISS Medium - Accucheck ACHS 7.) Hx of COPD/Asthma - Brovana 15mch inh q12 - Pulmicort 0.5mg inh q12 - Singulair 10mg po qd 8.) Chronic DVT - Coumadin 11mg po daily - Monitor INR GI ppx: protonix 40mg po daily DVT ppx: on Coumadin; SCDs c/i Diet: Heart Healthy Discussed with Dr. Shayna Kim PGY2 <Angelica Corral - Last Filed: 06/21/17 14:54> Objective - Vital Signs/Intake and Output Vital Signs (last 24 hours): Temp Pulse Resp BP Pulse Ox 97.8 F 76 16 130/62 96 06/20/17 13:33 06/21/17 13:30 06/20/17 13:33 06/21/17 13:30 06/20/17 12:52 Intake and Output: 06/21/17 06/21/17 06:59 18:59 Intake Total 800 840 Output Total 1550 Balance 800 -710 - Medications Medications: Current Medications Arformoterol Tartrate (Brovana) 15 mcg IH [id number] [facility] Last Admin: 06/21/17 08:18 Dose: Not Given Budesonide (Pulmicort Respules) 0.5 mg IH [id number] [facility] Last Admin: 06/21/17 08:19 Dose: Not Given Furosemide (Lasix) 80 mg PO DAILY [facility] Last Admin: 06/21/17 10:01 Dose: 80 mg Gabapentin (Neurontin) 300 mg PO TID [facility] PRN Reason: Protocol Last Admin: 06/21/17 13:28 Dose: 300 mg Hydralazine HCl (Apresoline) 25 mg PO Q8 [facility] Last Admin: 06/21/17 13:30 Dose: 25 mg Meropenem 1g/NS 100mL IVPB (Meropenem 1g/Ns 100ml Ivpb) 1 gm in 100 mls @ 100 mls/hr IVPB Q8 [facility] PRN Reason: Protocol Stop: 06/29/17 22:01 Last Admin: 06/21/17 13:27 Dose: 100 mls/hr Vancomycin HCl (Vancomycin 1gm) 1 gm in 250 mls @ 167 mls/hr IVPB Q12H [facility] PRN Reason: Protocol Stop: 06/29/17 19:01 Last Admin: 06/21/17 07:19 Dose: 167 mls/hr Insulin Human Regular (Humulin R Med) 0 units SC ACHS [facility] PRN Reason: Protocol Last Admin: 06/21/17 11:30 Dose: Not Given Lactobacillus Acidophilus (Bacid Acidophilus) 1 cap PO BID [facility] Last Admin: 06/21/17 10:00 Dose: 1 cap Levothyroxine Sodium (Synthroid) 75 mcg PO DAILY [facility] Last Admin: 06/21/17 10:00 Dose: 75 mcg Losartan Potassium (Cozaar) 100 mg PO DAILY [facility] Last Admin: 06/21/17 10:06 Dose: 100 mg Metoprolol Tartrate (Lopressor) 25 mg PO BID [facility] Last Admin: 06/21/17 10:07 Dose: 25 mg Montelukast Sodium (Singulair) 10 mg PO DAILY [facility] Last Admin: 06/21/17 10:00 Dose: 10 mg Oxycodone HCl (Oxycontin Extended Release Tab) 80 mg PO Q8H [facility] Last Admin: 06/21/17 12:08 Dose: Not Given Oxycodone/Acetaminophen (Percocet 10/325 Mg Tab) 1 tab PO Q6H PRN PRN Reason: Pain, moderate (4-7) Last Admin: 06/21/17 13:28 Dose: 1 tab Pantoprazole Sodium (Protonix Ec Tab) 40 mg PO DAILY [facility] Last Admin: 06/21/17 10:01 Dose: 40 mg Potassium Chloride (K-Dur 20 Meq Er Tab) 20 meq PO DAILY [facility] Last Admin: 06/21/17 10:07 Dose: 20 meq Trazodone HCl (Desyrel) 50 mg PO HS [facility] Last Admin: 06/20/17 21:13 Dose: 50 mg Warfarin Sodium 10 mg/ (Warfarin Sodium 1 mg) 11 mg PO 1800 [facility] - Labs Labs: 06/21/17 10:45 06/21/17 10:54 PT 21.2 Seconds (9.9-11.8) H 06/21/17 10:45 INR 1.96 (0.93-1.08) H 06/21/17 10:45 APTT 61.8 Seconds (23.7-30.8) H 06/20/17 09:30 Attending/Attestation - Attestation I have personally seen and examined this patient.: Yes I have fully participated in the care of the patient.: Yes I have reviewed all pertinent clinical information, including history, physical exam and plan: Yes Notes (Text): 06/21/17 14:48 57 year old male with past medical history of chronic LE ulcers, CHF, hypothyroidism, diabetes, DVT on coumadin and chronic opiate dependency who presented with worsening bilateral lower extremity ulcerations and erythema. ESR/CRP were elevated. Xrays and bone scan are ordered. Continue with iv antibiotics as per ID and wound care as per podiatry. He has history of opiate dependence currently on very high doses of oxycontin and oxycodone at home as prescribed by his pmd. Will increase his oxycontin to q8h. Pain management evaluation was requested and pending. He was counselled on risks of opiates abuse and dependency. He is on coumadin for history of DVT. INR today is 1.96. Continue with lasix for lower extremity edema. Continue with home medications for hypertension. Continue with synthroid for hypothyroidism. He is on insulin ss for diabetes. PMD is Dr. Gonzalez whom we were covering this week. I did explain to the patient we are covering while Dr. Gonzalez is away. Angelica Corral MD Hospitalist.
[2017-06-21] MEDS: Arformoterol 15 mcg/2 ml Inh Sol IH SCH ×2 (08:18→19:51)
[2017-06-21] MEDS: Budesonide 0.5 mg/2 ml Inhal Susp UD IH SCH ×2 (08:19→19:51)
[2017-06-21] MEDS: Insulin Reg-MEDIUM-Coverage SC SCH ×4 (08:44→22:59)
[2017-06-21] MEDS: Levothyroxine 75 MCG TAB PO SCH (10:00)
[2017-06-21] MEDS ORDERED: Vancomycin 1gm in NS 250ml 1 GM/250 ML BAG IVPB SCH (10:00)
[2017-06-21] MEDS: Lactobacillus Acidophilus 500 MU Cap PO SCH ×2 (10:00→17:46)
[2017-06-21] MEDS: oxyCODONE 80 mg ER Tab (oxyCONTIN) PO SCH ×3 (10:01→17:47)
[2017-06-21] MEDS: Pantoprazole 40 mg EC Tab PO SCH (10:01)
[2017-06-21] MEDS: Potassium Chloride 20 mEq ER Tab PO SCH (10:07)
[2017-06-21 10:59] LABS: HEMATOCRIT 35.8 % (42.0-52.0); MEAN CELL VOLUME 86.5 fl (80.0-105.0); MEAN CORPUSCULAR HEMOGLOBIN 28.5 pg (25.0-35.0); MEAN PLATELET VOLUME 11.4 fl (7.0-11.0); RED CELL DISTRIBUTION WIDTH 13.9 % (11.5-14.5); WHITE BLOOD COUNT 6.1 10^3/ul (4.5-11.0)
[2017-06-21 11:09] LABS: INR 1.96 (0.93-1.08)
[2017-06-21 11:13] LABS: BLOOD UREA NITROGEN 15 mg/dL (7-21); CALCIUM 9.3 mg/dL (8.4-10.5); CARBON DIOXIDE 30 mmol/L (21-33); CHLORIDE 101 mmol/L (98-107); GFR AFRICAN-AMERICAN > 60; GLUCOSE,RANDOM 144 mg/dL (70-110); POTASSIUM 4.1 mmol/L (3.6-5.0); SODIUM 140 mmol/L (132-148)
--- NOTE | 2017-06-21 13:29 | CP.PCM.CON ---
<Erickson Stone - Last Filed: 06/21/17 13:25> History of Present Illness - History of Present Illness History of Present Illness: 57 y/o male with PMH of Asthma , CAD, HTN, HLD, Hyperthyroidism/Hypothyroidism , CHF ,depression, DM, PE, DVT, fibromyalgia, S/P IVC filter seen at bedside this morning concerning bilateral venous stasis ulcerations of the lower extremities. Pt is well know to podiatry service for this issue due to recurrence of ulcerations as a result of poor outpatient compliance. Patient states that he has pain and swelling in his legs for last few days and decided to come to ED. Patient admits that he has not been following up in woundcare center against medical advice. He denies n/f/v/c/d/sob. Past Patient History - Infectious Disease Hx of Infectious Diseases: None - Tetanus Immunizations Tetanus Immunization: Unknown - Past Medical History & Family History Past Medical History?: Yes - Past Social History Smoking Status: Never Smoked - CARDIAC Hx Congestive Heart Failure: Yes Hx Hypertension: Yes - PULMONARY Hx Chronic Obstructive Pulmonary Disease (COPD): Yes - NEUROLOGICAL Hx Neurological Disorder: No - HEENT Hx HEENT Problems: No - RENAL Hx Chronic Kidney Disease: Yes (required HD in 2016 briefly) - ENDOCRINE/METABOLIC Hx Diabetes Mellitus Type 2: Yes Hx Hypothyroidism: Yes - HEMATOLOGICAL/ONCOLOGICAL Hx Blood Disorders: No - INTEGUMENTARY Hx Dermatological Problems: Yes Hx Cellulitis: Yes (BLE) Other/Comment: both leggs discolored - MUSCULOSKELETAL/RHEUMATOLOGICAL Hx Falls: No - GASTROINTESTINAL Hx Gastrointestinal Disorders: Yes - GENITOURINARY/GYNECOLOGICAL Hx Genitourinary Disorders: No - PSYCHIATRIC Hx Substance Use: No - SURGICAL HISTORY Hx Orthopedic Surgery: Yes (bilateral knee replacement) Other/Comment: total left knee - 1998. right ankle screws - 1987. right hip jason - 1982 - ANESTHESIA Hx Anesthesia: Yes Hx Anesthesia Reactions: No Hx Malignant Hyperthermia: No Meds Allergies/Adverse Reactions: Allergies Allergy/AdvReac Type Severity Reaction Status Date / Time No Known Allergies Allergy Verified 06/20/17 09:36 - Medications Medications: Current Medications Arformoterol Tartrate (Brovana) 15 mcg IH [id number] [facility] Last Admin: 06/21/17 08:18 Dose: Not Given Budesonide (Pulmicort Respules) 0.5 mg IH [id number] [facility] Last Admin: 06/21/17 08:19 Dose: Not Given Furosemide (Lasix) 80 mg PO DAILY [facility] Last Admin: 06/21/17 10:01 Dose: 80 mg Gabapentin (Neurontin) 300 mg PO TID [facility] PRN Reason: Protocol Last Admin: 06/21/17 10:00 Dose: 300 mg Hydralazine HCl (Apresoline) 25 mg PO Q8 [facility] Last Admin: 06/21/17 06:12 Dose: 25 mg Meropenem 1g/NS 100mL IVPB (Meropenem 1g/Ns 100ml Ivpb) 1 gm in 100 mls @ 100 mls/hr IVPB Q8 [facility] PRN Reason: Protocol Stop: 06/29/17 22:01 Last Admin: 06/21/17 06:12 Dose: 100 mls/hr Vancomycin HCl (Vancomycin 1gm) 1 gm in 250 mls @ 167 mls/hr IVPB Q12H [facility] PRN Reason: Protocol Stop: 06/29/17 19:01 Last Admin: 06/21/17 07:19 Dose: 167 mls/hr Insulin Human Regular (Humulin R Med) 0 units SC ACHS [facility] PRN Reason: Protocol Last Admin: 06/21/17 08:44 Dose: Not Given Lactobacillus Acidophilus (Bacid Acidophilus) 1 cap PO BID [facility] Last Admin: 06/21/17 10:00 Dose: 1 cap Levothyroxine Sodium (Synthroid) 75 mcg PO DAILY [facility] Last Admin: 06/21/17 10:00 Dose: 75 mcg Losartan Potassium (Cozaar) 100 mg PO DAILY [facility] Last Admin: 06/21/17 10:06 Dose: 100 mg Metoprolol Tartrate (Lopressor) 25 mg PO BID [facility] Last Admin: 06/21/17 10:07 Dose: 25 mg Montelukast Sodium (Singulair) 10 mg PO DAILY [facility] Last Admin: 06/21/17 10:00 Dose: 10 mg Oxycodone HCl (Oxycontin Extended Release Tab) 80 mg PO Q8H [facility] Last Admin: 06/21/17 12:08 Dose: Not Given Oxycodone/Acetaminophen (Percocet 10/325 Mg Tab) 1 tab PO Q6H PRN PRN Reason: Pain, moderate (4-7) Last Admin: 06/21/17 07:04 Dose: 1 tab Pantoprazole Sodium (Protonix Ec Tab) 40 mg PO DAILY [facility] Last Admin: 06/21/17 10:01 Dose: 40 mg Potassium Chloride (K-Dur 20 Meq Er Tab) 20 meq PO DAILY [facility] Last Admin: 06/21/17 10:07 Dose: 20 meq Trazodone HCl (Desyrel) 50 mg PO HS [facility] Last Admin: 06/20/17 21:13 Dose: 50 mg Warfarin Sodium 10 mg/ (Warfarin Sodium 1 mg) 11 mg PO 1800 [facility] Physical Exam - Constitutional Appears: Well, Non-toxic, No Acute Distress - Head Exam Head Exam: ATRAUMATIC - Extremities Exam Additional comments: Bilateral lower extrmeity exam Derm: +1 pitting edema to legs bilateral, localized erythema to mid-calf bilateral. Cellulitis localized to superficial ulcerations along: Left: Open wound to Anterior and lateral mid-leg region with active serous drainage absent undermining on a granular fibrotic base with jamila-wound macerations. No PTB Right: Open wounds to distal 1/3 of leg , superficial open lesions on the posterior aspect of left leg, medial aspect of right leg- granular base, no purulence, minor serous drainage, no active bleeding, no undermining, no tracking, no probe to bone Vasc: Non-palpable pedal pulses due to edema b/l, TG warm to warm, CFT < 3 sec to all digits, +1 pitting edema Neuro: grossly diminished MUSC: pain on palpation of posterior and medial legs b/l - Neurological Exam Neurological exam: Alert, Oriented x3 - Psychiatric Exam Psychiatric exam: Normal Affect, Normal Mood - Skin Skin Exam: Normal Color, Warm Results - Vital Signs Recent Vital Signs: Last Vital Signs Temp 97.8 F 06/20/17 13:33 Pulse 76 06/21/17 10:07 Resp 16 06/20/17 13:33 BP 130/62 06/21/17 10:07 Pulse Ox 96 06/20/17 12:52 - Labs Result Diagrams: 06/21/17 10:45 06/21/17 10:54 Labs: Laboratory Results - last 24 hr 06/20/17 06/20/17 06/20/17 13:46 13:46 16:42 WBC RBC Hgb Hct MCV MCH MCHC RDW Plt Count MPV ESR 108 H PT INR Sodium Potassium Chloride Carbon Dioxide Anion Gap BUN Creatinine Est GFR ( Amer) Est GFR (Non-Af Amer) POC Glucose (mg/dL) 106 Random Glucose Calcium C-React Prot High Sens > 15.00 H 06/20/17 06/21/17 06/21/17 21:47 07:09 10:45 WBC 6.1 D RBC 4.14 Hgb 11.8 L Hct 35.8 L MCV 86.5 MCH 28.5 MCHC 33.0 RDW 13.9 Plt Count 172 MPV 11.4 H ESR PT INR Sodium Potassium Chloride Carbon Dioxide Anion Gap BUN Creatinine Est GFR ( Amer) Est GFR (Non-Af Amer) POC Glucose (mg/dL) 162 H 112 H Random Glucose Calcium C-React Prot High Sens 06/21/17 06/21/17 06/21/17 10:45 10:54 11:11 WBC RBC Hgb Hct MCV MCH MCHC RDW Plt Count MPV ESR PT 21.2 H INR 1.96 H Sodium 140 Potassium 4.1 Chloride 101 Carbon Dioxide 30 Anion Gap 13 BUN 15 Creatinine 1.0 Est GFR ( Amer) > 60 Est GFR (Non-Af Amer) > 60 POC Glucose (mg/dL) 134 H Random Glucose 144 H Calcium 9.3 C-React Prot High Sens Assessment & Plan - Assessment and Plan (Free Text) Assessment: 57 y/o male presents with cellulitis and bilateral superficial venous stasis ulcerations Plan: patient evaluated and seen at bedside labs and vitals reviewed; afebrile, WBC 6.1 Continue IV abx per ID Cleansed legs with saline. Bilateral legs dressed with Telfa, ABD, kerlix WCX taken patient encouraged to begin ambulating as tolerated. podiatry will continue to monitor while patient remains in house <Parish Zavaleta - Last Filed: 06/23/17 11:27> Meds - Medications Medications: Current Medications Arformoterol Tartrate (Brovana) 15 mcg IH [id number] [facility] Last Admin: 06/23/17 07:23 Dose: Not Given Budesonide (Pulmicort Respules) 0.5 mg IH [id number] [facility] Last Admin: 06/23/17 07:24 Dose: Not Given Docusate Sodium (Colace) 100 mg PO BID [facility] Last Admin: 06/23/17 09:41 Dose: 100 mg Furosemide (Lasix) 80 mg PO DAILY [facility] Last Admin: 06/23/17 09:41 Dose: 80 mg Gabapentin (Neurontin) 300 mg PO TID [facility] PRN Reason: Protocol Last Admin: 06/23/17 09:41 Dose: 300 mg Hydralazine HCl (Apresoline) 25 mg PO Q8 [facility] Last Admin: 06/22/17 22:20 Dose: 25 mg Meropenem 1g/NS 100mL IVPB (Meropenem 1g/Ns 100ml Ivpb) 1 gm in 100 mls @ 100 mls/hr IVPB Q8 [facility] PRN Reason: Protocol Stop: 06/29/17 22:01 Last Admin: 06/23/17 05:49 Dose: 100 mls/hr Vancomycin HCl (Vancomycin 1gm) 1 gm in 250 mls @ 167 mls/hr IVPB 0600,1800 [facility] PRN Reason: Protocol Stop: 06/29/20 19:01 Last Admin: 06/23/17 06:53 Dose: 167 mls/hr Insulin Human Regular (Humulin R Med) 0 units SC ACHS [facility] PRN Reason: Protocol Last Admin: 06/23/17 08:04 Dose: 1 units Lactobacillus Acidophilus (Bacid Acidophilus) 1 cap PO BID [facility] Last Admin: 06/23/17 09:40 Dose: 1 cap Levothyroxine Sodium (Synthroid) 75 mcg PO DAILY [facility] Last Admin: 06/23/17 09:41 Dose: 75 mcg Losartan Potassium (Cozaar) 100 mg PO DAILY [facility] Last Admin: 06/23/17 09:42 Dose: 100 mg Metoprolol Tartrate (Lopressor) 25 mg PO BID [facility] Last Admin: 06/23/17 09:42 Dose: 25 mg Montelukast Sodium (Singulair) 10 mg PO DAILY [facility] Last Admin: 06/23/17 09:40 Dose: 10 mg Oxycodone HCl (Oxycontin Extended Release Tab) 80 mg PO Q8H [facility] Last Admin: 06/23/17 09:45 Dose: 80 mg Oxycodone/Acetaminophen (Percocet 10/325 Mg Tab) 1 tab PO Q6H PRN PRN Reason: Pain, moderate (4-7) Last Admin: 06/23/17 08:04 Dose: 1 tab Pantoprazole Sodium (Protonix Ec Tab) 40 mg PO DAILY [facility] Last Admin: 06/23/17 09:42 Dose: 40 mg Potassium Chloride (K-Dur 20 Meq Er Tab) 20 meq PO DAILY [facility] Last Admin: 06/23/17 09:40 Dose: 20 meq Trazodone HCl (Desyrel) 50 mg PO HS [facility] Last Admin: 06/22/17 22:19 Dose: 50 mg Warfarin Sodium 10 mg/ (Warfarin Sodium 1 mg) 11 mg PO 1800 [facility] Last Admin: 06/22/17 18:11 Dose: 11 mg Results - Vital Signs Recent Vital Signs: Last Vital Signs Temp 97.7 F 06/23/17 08:27 Pulse 59 L 06/23/17 08:27 Resp 20 06/23/17 08:27 BP 127/85 06/23/17 09:42 Pulse Ox 97 06/23/17 08:27 - Labs Result Diagrams: 06/23/17 08:50 06/23/17 08:50 Labs: Laboratory Results - last 24 hr 06/22/17 06/22/17 06/23/17 16:01 21:07 07:30 WBC RBC Hgb Hct MCV MCH MCHC RDW Plt Count MPV Sodium Potassium Chloride Carbon Dioxide Anion Gap BUN Creatinine Est GFR ( Amer) Est GFR (Non-Af Amer) POC Glucose (mg/dL) 93 153 H 162 H Random Glucose Calcium Total Bilirubin AST ALT Alkaline Phosphatase Total Protein Albumin Globulin Albumin/Globulin Ratio 06/23/17 06/23/17 08:50 08:50 WBC 6.4 RBC 4.16 Hgb 11.7 L Hct 36.0 L MCV 86.5 MCH 28.1 MCHC 32.5 RDW 13.8 Plt Count 197 MPV 11.9 H Sodium 138 Potassium 4.3 Chloride 97 Carbon Dioxide 31 Anion Gap 14 BUN 25 H Creatinine 1.3 Est GFR ( Amer) > 60 Est GFR (Non-Af Amer) 57 POC Glucose (mg/dL) Random Glucose 120 H Calcium 9.1 Total Bilirubin 0.5 AST 24 ALT 17 Alkaline Phosphatase 154 H Total Protein 8.0 Albumin 3.7 Globulin 4.2 Albumin/Globulin Ratio 0.9 L Attending/Attestation - Attestation I have personally seen and examined this patient.: Yes I have fully participated in the care of the patient.: Yes I have reviewed all pertinent clinical information: Yes
[2017-06-21] MEDS: WARFARIN PO SCH (17:50)
--- NOTE | 2017-06-21 19:26 | PN ---
DATE: 06/21/2017 SUBJECTIVE: The patient is in bed, in no acute distress, nontoxic. PHYSICAL EXAMINATION: VITAL SIGNS: Temperature is 98, blood pressure is 130/60, respiratory rate of 18 and heart rate of 85. HEENT: Unremarkable. NECK: Supple. HEART: Normal S1 and S2. LUNGS: Decreased breath sounds. ABDOMEN: Soft and nontender. LABORATORY DATA: Reveals a white count of 6.1, hemoglobin of 11 and platelets of 172. Coagulation is noted. BUN of 15 and creatinine of 1.0. C-reactive protein is greater than 15. Sed rate is 108. Bone scan is pending. The patient is on vancomycin and meropenem. Two different gram-negative rods in the left leg culture and the blood cultures are no growth. ASSESSMENT AND PLAN: He is a 57-year-old male with morbid obesity with body mass index of 56, diabetes, hypertension, chronic obstructive lung disease, depression, hypothyroidism, arthritis, history of renal failure and hemodialysis briefly and now with a severe left leg gram-negative rods cellulitis with foul odorous, on meropenem and vancomycin. We will check on the final cultures results. We will check on bone scan rule out underlying osteomyelitis. We will make further recommendations. Ralph Blanco MD
--- NOTE | 2017-06-21 20:52 | CP.PCM.PN ---
Subjective - Date & Time of Evaluation Date of Evaluation: 06/21/17 Time of Evaluation: 20:49 - Subjective Subjective: S:It was requested to me to insert heparin lock. has no complaints now. Pertinent medical record was reviewed. O: Last Vital Signs 3 Temp 98.0 F 06/21/17 08:00 Pulse 68 06/21/17 17:49 Resp 18 06/21/17 08:00 BP 118/69 06/21/17 17:49 Pulse Ox 98 06/21/17 08:00 Awake , alert , not in distress. Obese person. LUNGS:Normal breathing pattern. A:Poor venous access. Encounter for intravenous line placement. Objective - Vital Signs/Intake and Output Vital Signs (last 24 hours): Temp Pulse Resp BP Pulse Ox 98.0 F 68 18 118/69 98 06/21/17 08:00 06/21/17 17:49 06/21/17 08:00 06/21/17 17:49 06/21/17 08:00 Intake and Output: 06/21/17 06/22/17 18:59 06:59 Intake Total 840 Output Total 1550 Balance -710 - Medications Medications: Current Medications Arformoterol Tartrate (Brovana) 15 mcg IH [id number] [facility] Last Admin: 06/21/17 19:51 Dose: Not Given Budesonide (Pulmicort Respules) 0.5 mg IH [id number] [facility] Last Admin: 06/21/17 19:51 Dose: Not Given Furosemide (Lasix) 80 mg PO DAILY [facility] Last Admin: 06/21/17 10:01 Dose: 80 mg Gabapentin (Neurontin) 300 mg PO TID [facility] PRN Reason: Protocol Last Admin: 06/21/17 17:47 Dose: 300 mg Hydralazine HCl (Apresoline) 25 mg PO Q8 [facility] Last Admin: 06/21/17 13:30 Dose: 25 mg Meropenem 1g/NS 100mL IVPB (Meropenem 1g/Ns 100ml Ivpb) 1 gm in 100 mls @ 100 mls/hr IVPB Q8 [facility] PRN Reason: Protocol Stop: 06/29/17 22:01 Last Admin: 06/21/17 13:27 Dose: 100 mls/hr Vancomycin HCl (Vancomycin 1gm) 1 gm in 250 mls @ 167 mls/hr IVPB Q12H [facility] PRN Reason: Protocol Stop: 06/29/17 19:01 Last Admin: 06/21/17 17:30 Dose: 167 mls/hr Insulin Human Regular (Humulin R Med) 0 units SC ACHS [facility] PRN Reason: Protocol Last Admin: 06/21/17 16:30 Dose: Not Given Lactobacillus Acidophilus (Bacid Acidophilus) 1 cap PO BID [facility] Last Admin: 06/21/17 17:46 Dose: 1 cap Levothyroxine Sodium (Synthroid) 75 mcg PO DAILY [facility] Last Admin: 06/21/17 10:00 Dose: 75 mcg Losartan Potassium (Cozaar) 100 mg PO DAILY [facility] Last Admin: 06/21/17 10:06 Dose: 100 mg Metoprolol Tartrate (Lopressor) 25 mg PO BID [facility] Last Admin: 06/21/17 17:49 Dose: 25 mg Montelukast Sodium (Singulair) 10 mg PO DAILY [facility] Last Admin: 06/21/17 10:00 Dose: 10 mg Oxycodone HCl (Oxycontin Extended Release Tab) 80 mg PO Q8H [facility] Last Admin: 06/21/17 17:47 Dose: 80 mg Oxycodone/Acetaminophen (Percocet 10/325 Mg Tab) 1 tab PO Q6H PRN PRN Reason: Pain, moderate (4-7) Last Admin: 06/21/17 13:28 Dose: 1 tab Pantoprazole Sodium (Protonix Ec Tab) 40 mg PO DAILY [facility] Last Admin: 06/21/17 10:01 Dose: 40 mg Potassium Chloride (K-Dur 20 Meq Er Tab) 20 meq PO DAILY [facility] Last Admin: 06/21/17 10:07 Dose: 20 meq Trazodone HCl (Desyrel) 50 mg PO HS [facility] Last Admin: 06/20/17 21:13 Dose: 50 mg Warfarin Sodium 10 mg/ (Warfarin Sodium 1 mg) 11 mg PO 1800 [facility] Last Admin: 06/21/17 17:50 Dose: 11 mg - Labs Labs: 06/21/17 10:45 06/21/17 10:54 PT 21.2 Seconds (9.9-11.8) H 06/21/17 10:45 INR 1.96 (0.93-1.08) H 06/21/17 10:45 APTT 61.8 Seconds (23.7-30.8) H 06/20/17 09:30
[2017-06-22] MEDS: oxyCODONE 80 mg ER Tab (oxyCONTIN) PO SCH ×3 (02:08→18:12)
[2017-06-22] MEDS: Oxycodone/Acetaminophen 10/325 mg Tab PO PRN ×3 (06:12→20:08)
[2017-06-22] MEDS: Meropenem 1g/NS 100mL IVPB 1 GM/100 ML PIGGYBACK IVPB SCH ×3 (06:13→22:19)
[2017-06-22] MEDS: Arformoterol 15 mcg/2 ml Inh Sol IH SCH ×2 (07:59→19:43)
[2017-06-22] MEDS: Budesonide 0.5 mg/2 ml Inhal Susp UD IH SCH ×2 (08:00→19:43)
[2017-06-22 08:20] LABS: BASO # 0.03 K/mm3 (0.0-2.0); BASO % 0.4 % (0.0-3.0); EOS # 0.4 (0.0-0.7); EOS % 5.2 % (1.5-5.0); GRAN # 4.49 (1.4-6.5); GRAN % 66.7 % (50.0-68.0); HEMATOCRIT 35.4 % (42.0-52.0); LYMPH # 1.4 (1.2-3.4); LYMPH % 20.7 % (22.0-35.0); MEAN CELL VOLUME 85.9 fl (80.0-105.0); MEAN CORPUSCULAR HEMOGLOBIN 28.2 pg (25.0-35.0); MEAN CORPUSCULAR HGB CONC 32.8 g/dl (31.0-37.0); MEAN PLATELET VOLUME 11.3 fl (7.0-11.0); MONO # 0.5 (0.1-0.6); RED CELL DISTRIBUTION WIDTH 13.7 % (11.5-14.5); WHITE BLOOD COUNT 6.7 10^3/ul (4.5-11.0)
[2017-06-22 08:31] LABS: ALB/GLOB RATIO 0.9 (1.1-1.8); ALKALINE PHOSPHATASE 140 U/L (38-133); ALT/SGPT 8 U/L (7-56); AST/SGOT 19 U/L (15-59); BILIRUBIN,TOTAL 0.5 mg/dL (0.2-1.3); BLOOD UREA NITROGEN 19 mg/dL (7-21); CALCIUM 9.4 mg/dL (8.4-10.5); CARBON DIOXIDE 30 mmol/L (21-33); CHLORIDE 97 mmol/L (95-110); GFR AFRICAN-AMERICAN > 60; GLUCOSE,RANDOM 177 mg/dL (70-110); MAGNESIUM 1.8 mg/dL (1.7-2.2); PHOSPHOROUS 3.3 mg/dL (2.5-4.5); SODIUM 138 mmol/L (132-148); TOTAL PROTEIN 7.8 g/dL (5.8-8.3)
[2017-06-22] MEDS: Insulin Reg-MEDIUM-Coverage SC SCH ×4 (08:32→22:14)
[2017-06-22 08:33] LABS: INR 1.63 (0.93-1.08); PARTIAL THROMBOPLASTIN TIME 46.9 Seconds (23.7-30.8)
[2017-06-22] MEDS: Vancomycin 1gm in NS 250ml 1 GM/250 ML BAG IVPB SCH ×2 (08:57→18:24)
[2017-06-22] MEDS: Pantoprazole 40 mg EC Tab PO SCH (10:11)
[2017-06-22] MEDS: Levothyroxine 75 MCG TAB PO SCH (10:11)
[2017-06-22] MEDS: Potassium Chloride 20 mEq ER Tab PO SCH (10:12)
[2017-06-22] MEDS: Lactobacillus Acidophilus 500 MU Cap PO SCH ×2 (10:12→18:12)
--- NOTE | 2017-06-22 11:12 | CP.PCM.PN ---
<Erickson Stone - Last Filed: 06/22/17 11:09> Subjective - Date & Time of Evaluation Date of Evaluation: 06/22/17 Time of Evaluation: 11:09 - Subjective Subjective: 57 y/o male patient was seen at bedside this morning concerning bilateral venous stasis ulcerations of the lower extremities. Pt is well know to podiatry service for this issue due to recurrence of ulcerations as a result of poor outpatient compliance. Patient still complains of pain to wound sites bilateral lower extremities, worse on the right leg. He denies n/f/v/c/d/sob. Objective - Vital Signs/Intake and Output Vital Signs (last 24 hours): Temp Pulse Resp BP Pulse Ox 97.8 F 67 20 131/79 95 06/22/17 08:30 06/22/17 08:30 06/22/17 08:30 06/22/17 10:12 06/22/17 08:30 Intake and Output: 06/22/17 06/22/17 06:59 18:59 Intake Total 1040 Output Total 750 Balance 290 - Medications Medications: Current Medications Arformoterol Tartrate (Brovana) 15 mcg IH [id number] [facility] Last Admin: 06/22/17 07:59 Dose: Not Given Budesonide (Pulmicort Respules) 0.5 mg IH [id number] [facility] Last Admin: 06/22/17 08:00 Dose: Not Given Furosemide (Lasix) 80 mg PO DAILY [facility] Last Admin: 06/22/17 10:12 Dose: 80 mg Gabapentin (Neurontin) 300 mg PO TID [facility] PRN Reason: Protocol Last Admin: 06/22/17 10:11 Dose: 300 mg Hydralazine HCl (Apresoline) 25 mg PO Q8 [facility] Last Admin: 06/22/17 06:13 Dose: 25 mg Meropenem 1g/NS 100mL IVPB (Meropenem 1g/Ns 100ml Ivpb) 1 gm in 100 mls @ 100 mls/hr IVPB Q8 [facility] PRN Reason: Protocol Stop: 06/29/17 22:01 Last Admin: 06/22/17 06:13 Dose: 100 mls/hr Vancomycin HCl (Vancomycin 1gm) 1 gm in 250 mls @ 167 mls/hr IVPB Q12H [facility] PRN Reason: Protocol Stop: 06/29/17 19:01 Last Admin: 06/22/17 08:57 Dose: 167 mls/hr Insulin Human Regular (Humulin R Med) 0 units SC ACHS [facility] PRN Reason: Protocol Last Admin: 06/22/17 08:32 Dose: Not Given Lactobacillus Acidophilus (Bacid Acidophilus) 1 cap PO BID [facility] Last Admin: 06/22/17 10:12 Dose: 1 cap Levothyroxine Sodium (Synthroid) 75 mcg PO DAILY [facility] Last Admin: 06/22/17 10:11 Dose: 75 mcg Losartan Potassium (Cozaar) 100 mg PO DAILY [facility] Last Admin: 06/22/17 10:12 Dose: 100 mg Metoprolol Tartrate (Lopressor) 25 mg PO BID [facility] Last Admin: 06/22/17 10:11 Dose: 25 mg Montelukast Sodium (Singulair) 10 mg PO DAILY [facility] Last Admin: 06/22/17 10:11 Dose: 10 mg Oxycodone HCl (Oxycontin Extended Release Tab) 80 mg PO Q8H [facility] Last Admin: 06/22/17 10:09 Dose: 80 mg Oxycodone/Acetaminophen (Percocet 10/325 Mg Tab) 1 tab PO Q6H PRN PRN Reason: Pain, moderate (4-7) Last Admin: 06/22/17 06:12 Dose: 1 tab Pantoprazole Sodium (Protonix Ec Tab) 40 mg PO DAILY [facility] Last Admin: 06/22/17 10:11 Dose: 40 mg Potassium Chloride (K-Dur 20 Meq Er Tab) 20 meq PO DAILY [facility] Last Admin: 06/22/17 10:12 Dose: 20 meq Trazodone HCl (Desyrel) 50 mg PO HS [facility] Last Admin: 06/21/17 21:33 Dose: 50 mg Warfarin Sodium 10 mg/ (Warfarin Sodium 1 mg) 11 mg PO 1800 [facility] Last Admin: 06/21/17 17:50 Dose: 11 mg - Labs Labs: 06/22/17 08:00 06/22/17 08:00 PT 17.6 Seconds (9.9-11.8) H 06/22/17 08:00 INR 1.63 (0.93-1.08) H 06/22/17 08:00 APTT 46.9 Seconds (23.7-30.8) H 06/22/17 08:00 - Constitutional Appears: Well, Non-toxic, No Acute Distress - Head Exam Head Exam: ATRAUMATIC - Extremities Exam Additional comments: Bilateral lower extrmeity exam Derm: +1 pitting edema to legs bilateral, localized erythema to mid-calf bilateral. Cellulitis localized to superficial ulcerations along: Left: Open wound to Anterior and lateral mid-leg region with active serous drainage absent undermining on a granular fibrotic base with jamila-wound macerations. No PTB Right: Open wounds to distal 1/3 of leg , superficial open lesions on the posterior aspect of left leg, medial aspect of right leg- granular base, no purulence, Moderate serous drainage, no active bleeding, no undermining, no tracking, no probe to bone Vasc: Non-palpable pedal pulses due to edema b/l, TG warm to warm, CFT < 3 sec to all digits, +1 pitting edema Neuro: grossly diminished MUSC: pain on palpation of posterior and medial legs b/l - Neurological Exam Neurological Exam: Alert, Awake, Oriented x3 - Psychiatric Exam Psychiatric exam: Normal Affect, Normal Mood - Skin Skin Exam: Normal Color, Warm Assessment and Plan - Assessment and Plan (Free Text) Assessment: 57 y/o male presents with cellulitis and bilateral superficial venous stasis ulcerations Plan: Patient evaluated and seen at bedside Labs and vitals reviewed; afebrile, WBC 6.7 Continue IV abx per ID Cleansed legs with saline. Bilateral legs dressed with Xeroform, ABD, kerlix WCX Left leg: Gram (-) Preliminary podiatry will continue to monitor while patient remains in house <Preeti Daniels - Last Filed: 06/28/17 19:40> Objective - Vital Signs/Intake and Output Vital Signs (last 24 hours): Temp Pulse Resp BP Pulse Ox 98.8 F 74 20 120/81 98 06/24/17 16:00 06/24/17 17:26 06/24/17 16:00 06/24/17 17:26 06/24/17 16:00 - Labs Labs: 06/24/17 07:55 06/24/17 07:55 PT 17.6 Seconds (9.9-11.8) H 06/22/17 08:00 INR 1.63 (0.93-1.08) H 06/22/17 08:00 APTT 46.9 Seconds (23.7-30.8) H 06/22/17 08:00 Attending/Attestation - Attestation I have personally seen and examined this patient.: Yes I have fully participated in the care of the patient.: Yes I have reviewed all pertinent clinical information, including history, physical exam and plan: Yes
--- NOTE | 2017-06-22 16:51 | CP.PCM.PN ---
<Zayra Lomax - Last Filed: 06/22/17 16:47> Subjective - Date & Time of Evaluation Date of Evaluation: 06/22/17 Time of Evaluation: 16:48 - Subjective Subjective: Patient has been seen and examined at bedside. No overnight events reported. Patient complained of chills overnight but denies fever. Patient denes SOB, CP , Abd Pian, Nausea, Vomitting, Diarrhea. Still complains of b/l lower extremity pain. Patient asked to be switched to Dr. Carballo service. Patient refused imaging because of pain. He stated that he will try this afternoon after receiving his pain medications. Objective - Vital Signs/Intake and Output Vital Signs (last 24 hours): Temp Pulse Resp BP Pulse Ox 98.4 F 68 20 118/81 99 06/22/17 15:51 06/22/17 15:51 06/22/17 15:51 06/22/17 15:51 06/22/17 15:51 Intake and Output: 06/22/17 06/22/17 06:59 18:59 Intake Total 1040 800 Output Total 750 3700 Balance 290 -2900 - Medications Medications: Current Medications Arformoterol Tartrate (Brovana) 15 mcg IH [id number] [facility] Last Admin: 06/22/17 07:59 Dose: Not Given Budesonide (Pulmicort Respules) 0.5 mg IH [id number] [facility] Last Admin: 06/22/17 08:00 Dose: Not Given Furosemide (Lasix) 80 mg PO DAILY [facility] Last Admin: 06/22/17 10:12 Dose: 80 mg Gabapentin (Neurontin) 300 mg PO TID [facility] PRN Reason: Protocol Last Admin: 06/22/17 13:07 Dose: 300 mg Hydralazine HCl (Apresoline) 25 mg PO Q8 [facility] Last Admin: 06/22/17 13:07 Dose: 25 mg Meropenem 1g/NS 100mL IVPB (Meropenem 1g/Ns 100ml Ivpb) 1 gm in 100 mls @ 100 mls/hr IVPB Q8 [facility] PRN Reason: Protocol Stop: 06/29/17 22:01 Last Admin: 06/22/17 13:07 Dose: 100 mls/hr Vancomycin HCl (Vancomycin 1gm) 1 gm in 250 mls @ 167 mls/hr IVPB Q12H [facility] PRN Reason: Protocol Stop: 06/29/17 19:01 Last Admin: 06/22/17 08:57 Dose: 167 mls/hr Insulin Human Regular (Humulin R Med) 0 units SC ACHS [facility] PRN Reason: Protocol Last Admin: 06/22/17 08:32 Dose: Not Given Lactobacillus Acidophilus (Bacid Acidophilus) 1 cap PO BID [facility] Last Admin: 06/22/17 10:12 Dose: 1 cap Levothyroxine Sodium (Synthroid) 75 mcg PO DAILY [facility] Last Admin: 06/22/17 10:11 Dose: 75 mcg Losartan Potassium (Cozaar) 100 mg PO DAILY [facility] Last Admin: 06/22/17 10:12 Dose: 100 mg Metoprolol Tartrate (Lopressor) 25 mg PO BID [facility] Last Admin: 06/22/17 10:11 Dose: 25 mg Montelukast Sodium (Singulair) 10 mg PO DAILY [facility] Last Admin: 06/22/17 10:11 Dose: 10 mg Oxycodone HCl (Oxycontin Extended Release Tab) 80 mg PO Q8H [facility] Last Admin: 06/22/17 10:09 Dose: 80 mg Oxycodone/Acetaminophen (Percocet 10/325 Mg Tab) 1 tab PO Q6H PRN PRN Reason: Pain, moderate (4-7) Last Admin: 06/22/17 12:45 Dose: 1 tab Pantoprazole Sodium (Protonix Ec Tab) 40 mg PO DAILY [facility] Last Admin: 06/22/17 10:11 Dose: 40 mg Potassium Chloride (K-Dur 20 Meq Er Tab) 20 meq PO DAILY [facility] Last Admin: 06/22/17 10:12 Dose: 20 meq Trazodone HCl (Desyrel) 50 mg PO HS [facility] Last Admin: 06/21/17 21:33 Dose: 50 mg Warfarin Sodium 10 mg/ (Warfarin Sodium 1 mg) 11 mg PO 1800 [facility] Last Admin: 06/21/17 17:50 Dose: 11 mg - Labs Labs: 06/22/17 08:00 06/22/17 08:00 PT 17.6 Seconds (9.9-11.8) H 06/22/17 08:00 INR 1.63 (0.93-1.08) H 06/22/17 08:00 APTT 46.9 Seconds (23.7-30.8) H 06/22/17 08:00 - Constitutional Appears: Non-toxic, No Acute Distress - Head Exam Head Exam: ATRAUMATIC, NORMOCEPHALIC - Eye Exam Eye Exam: EOMI, Normal appearance - ENT Exam ENT Exam: Mucous Membranes Moist - Respiratory Exam Respiratory Exam: Clear to Ausculation Bilateral. absent: Rales, Rhonchi, Wheezes - Cardiovascular Exam Cardiovascular Exam: +S1, +S2 Additional comments: hypoactive bowel sounds. Likely due to body habitus. - GI/Abdominal Exam GI & Abdominal Exam: Soft, Normal Bowel Sounds. absent: Tenderness - Extremities Exam Additional comments: Venous Stasis Ulcers b/l. Wrapped. LLE cellulitis w/ erythema and serous drainage. - Psychiatric Exam Psychiatric exam: Normal Affect, Normal Mood Assessment and Plan - Assessment and Plan (Free Text) Assessment: 57 M with PMHx of morbid obesity, CHF, and DM presents with b/l LE pressure ulcers as well as one on the osei and on bilateral buttocks Plan: 1.) Pressure Ulcers: b/l buttocks, calves; L osei - Podiatry Consult: Waqar. nardas appreciated - ID Consult: Dr. Blanco. Recs appreciated - Wound dressing changes daily - Wound care - Turn patient q 2h - ABx: Merrem day 3, Vanc day 3 last visit showed Pseudomonas Aeruginosa, E. Coli, and Staph Aureus in wounds - Wound Cx: prelim gram negative rods - Blood culture prelim negative x 2 - f/u B/l LE X-rays - f/u B/l LE bone scans - Hot compresses 2.) Hx/o HTN - Losartan 100mg po daily - Lopressor 25mg po bid - Hydralazine 25mg po q8 3.) Hx/o CHF - Lasix 80mg po Daily - K-dur 20mg po Daily 4.) Hx/o Hypothyroidism - Synthroid 75mcg po daily 5.) Hx/o Chronic Pain - Oxycontin 80 q6h and Perc 10/325 q 6 - Trazodone 50mg po hs - Pain management consulted. Recs appreciated. 6.) Hx/o DM - RISS Medium - Accucheck ACHS 7.) Hx of COPD/Asthma - Brovana 15mch inh q12 - Pulmicort 0.5mg inh q12 - Singulair 10mg po qd 8.) Chronic DVT - Coumadin 11mg po daily - Monitor INR GI ppx: protonix 40mg po daily DVT ppx: on Coumadin; SCDs c/i Diet: Heart Healthy Patient seen, reviewed, and discussed with Dr. Samuel. Zayra lomax PGY1 Dispo: Patient refused imaging today. States he would try this afternoon after his scheduled Percocet. Patient was educated on why he needs imaging. <Lizzie AUGUSTIN,Siri - Last Filed: 06/23/17 15:04> Objective - Vital Signs/Intake and Output Vital Signs (last 24 hours): Temp Pulse Resp BP Pulse Ox 97.7 F 59 L 20 127/85 97 06/23/17 08:27 06/23/17 08:27 06/23/17 08:27 06/23/17 09:42 06/23/17 08:27 Intake and Output: 06/23/17 06/23/17 06:59 18:59 Intake Total 1200 800 Output Total 2275 1900 Balance -1075 -1100 - Medications Medications: Current Medications Arformoterol Tartrate (Brovana) 15 mcg IH [id number] [facility] Last Admin: 06/23/17 07:23 Dose: Not Given Budesonide (Pulmicort Respules) 0.5 mg IH [id number] [facility] Last Admin: 06/23/17 07:24 Dose: Not Given Docusate Sodium (Colace) 100 mg PO BID [facility] Last Admin: 06/23/17 09:41 Dose: 100 mg Furosemide (Lasix) 80 mg PO DAILY [facility] Last Admin: 06/23/17 09:41 Dose: 80 mg Gabapentin (Neurontin) 300 mg PO TID [facility] PRN Reason: Protocol Last Admin: 06/23/17 13:00 Dose: 300 mg Hydralazine HCl (Apresoline) 25 mg PO Q8 [facility] Last Admin: 06/23/17 13:00 Dose: 25 mg Meropenem 1g/NS 100mL IVPB (Meropenem 1g/Ns 100ml Ivpb) 1 gm in 100 mls @ 100 mls/hr IVPB Q8 [facility] PRN Reason: Protocol Stop: 06/29/17 22:01 Last Admin: 06/23/17 13:01 Dose: 100 mls/hr Insulin Human Regular (Humulin R Med) 0 units SC ACHS [facility] PRN Reason: Protocol Last Admin: 06/23/17 12:15 Dose: Not Given Lactobacillus Acidophilus (Bacid Acidophilus) 1 cap PO BID [facility] Last Admin: 06/23/17 09:40 Dose: 1 cap Levothyroxine Sodium (Synthroid) 75 mcg PO DAILY [facility] Last Admin: 06/23/17 09:41 Dose: 75 mcg Losartan Potassium (Cozaar) 100 mg PO DAILY [facility] Last Admin: 06/23/17 09:42 Dose: 100 mg Metoprolol Tartrate (Lopressor) 25 mg PO BID [facility] Last Admin: 06/23/17 09:42 Dose: 25 mg Montelukast Sodium (Singulair) 10 mg PO DAILY [facility] Last Admin: 06/23/17 09:40 Dose: 10 mg Oxycodone HCl (Oxycontin Extended Release Tab) 80 mg PO Q8H [facility] Last Admin: 06/23/17 09:45 Dose: 80 mg Oxycodone/Acetaminophen (Percocet 10/325 Mg Tab) 1 tab PO Q6H PRN PRN Reason: Pain, moderate (4-7) Last Admin: 06/23/17 13:16 Dose: 1 tab Pantoprazole Sodium (Protonix Ec Tab) 40 mg PO DAILY [facility] Last Admin: 06/23/17 09:42 Dose: 40 mg Potassium Chloride (K-Dur 20 Meq Er Tab) 20 meq PO DAILY [facility] Last Admin: 06/23/17 09:40 Dose: 20 meq Trazodone HCl (Desyrel) 50 mg PO HS [facility] Last Admin: 06/22/17 22:19 Dose: 50 mg Warfarin Sodium 10 mg/ (Warfarin Sodium 1 mg) 11 mg PO 1800 [facility] Last Admin: 06/22/17 18:11 Dose: 11 mg - Labs Labs: 06/23/17 08:50 06/23/17 08:50 PT 17.6 Seconds (9.9-11.8) H 06/22/17 08:00 INR 1.63 (0.93-1.08) H 06/22/17 08:00 APTT 46.9 Seconds (23.7-30.8) H 06/22/17 08:00 Attending/Attestation - Attestation I have personally seen and examined this patient.: Yes I have fully participated in the care of the patient.: Yes I have reviewed all pertinent clinical information, including history, physical exam and plan: Yes Notes (Text): 06/23/17 15:01 Patient was seen and examined with medical research scientist. Agreed with resident assessment and plan. 57 year old male with past medical history of chronic LE ulcers, CHF, hypothyroidism, diabetes, DVT on coumadin and chronic opiate dependency who presented with worsening bilateral lower extremity ulcerations and erythema. ESR/CRP were elevated. Xrays and bone scan is pending. Continue with iv antibiotics as per ID and wound care as per podiatry.Wound cultures are growing gram negative jason.Blood cultures are negative. Management plan was discussed in detail with patient Education was provided.
[2017-06-22] MEDS: WARFARIN PO SCH (18:11)
[2017-06-22] MEDS ORDERED: Vancomycin 1gm in NS 250ml 1 GM/250 ML BAG IVPB SCH (21:21)
--- NOTE | 2017-06-22 22:41 | PN ---
DATE: 06/22/2017 SUBJECTIVE: The patient is in bed, in no acute distress, nontoxic. PHYSICAL EXAMINATION VITAL SIGNS: Temperature is 98, blood pressure 130/70 and respiratory rate of 16. HEENT: Unremarkable. NECK: Supple. LUNGS: Decreased breath sounds. HEART: Normal S1 and S2. ABDOMEN: Soft. LABORATORY DATA: Reveals a white count of 6.7, hemoglobin of 11 and platelets of 186. BUN of 19 and creatinine 1.2. Culture is also pending. Has a gram-negative rods on the culture. Identification and sensitivity is pending. ASSESSMENT AND PLAN: He is a 57-year-old male with morbid obesity with body mass index of 56, diabetes mellitus, hypertension, chronic obstructive lung disease, depression, hypothyroidism, arthritis, history of renal failure, had been on hemodialysis for brief period of time, history of deep venous thrombosis and admitted now with a severe left leg gram-negative rods cellulitis which is foul odorous, continued on meropenem. Awaiting for identification and sensitivity. Blood cultures had no growth at this time. We will discontinue vancomycin in next 24 hours if no gram positives are present. The patient had refused the bone scan on several occasions. Ralph Blanco MD
[2017-06-23] MEDS: Oxycodone/Acetaminophen 10/325 mg Tab PO PRN ×4 (02:13→20:21)
[2017-06-23] MEDS: oxyCODONE 80 mg ER Tab (oxyCONTIN) PO SCH ×3 (02:14→18:05)
[2017-06-23] MEDS: Meropenem 1g/NS 100mL IVPB 1 GM/100 ML PIGGYBACK IVPB SCH ×3 (05:49→22:15)
[2017-06-23] MEDS: Arformoterol 15 mcg/2 ml Inh Sol IH SCH ×2 (07:23→19:35)
[2017-06-23] MEDS: Budesonide 0.5 mg/2 ml Inhal Susp UD IH SCH ×2 (07:24→19:35)
[2017-06-23] MEDS: Insulin Reg-MEDIUM-Coverage SC SCH ×4 (08:04→22:00)
[2017-06-23 08:55] LABS: MEAN CELL VOLUME 86.5 fl (80.0-105.0); MEAN CORPUSCULAR HEMOGLOBIN 28.1 pg (25.0-35.0); MEAN CORPUSCULAR HGB CONC 32.5 g/dl (31.0-37.0); MEAN PLATELET VOLUME 11.9 fl (7.0-11.0); RED CELL DISTRIBUTION WIDTH 13.8 % (11.5-14.5); WHITE BLOOD COUNT 6.4 10^3/ul (4.5-11.0)
[2017-06-23 09:05] LABS: ALB/GLOB RATIO 0.9 (1.1-1.8); ALKALINE PHOSPHATASE 154 U/L (38-133); ALT/SGPT 17 U/L (7-56); AST/SGOT 24 U/L (15-59); BILIRUBIN,TOTAL 0.5 mg/dL (0.2-1.3); BLOOD UREA NITROGEN 25 mg/dL (7-21); CALCIUM 9.1 mg/dL (8.4-10.5); CARBON DIOXIDE 31 mmol/L (21-33); CHLORIDE 97 mmol/L (95-110); GFR AFRICAN-AMERICAN > 60; GLUCOSE,RANDOM 120 mg/dL (70-110); POTASSIUM 4.3 mmol/L (3.6-5.0); SODIUM 138 mmol/L (132-148)
[2017-06-23] MEDS: Lactobacillus Acidophilus 500 MU Cap PO SCH ×2 (09:40→18:05)
[2017-06-23] MEDS: Potassium Chloride 20 mEq ER Tab PO SCH (09:40)
[2017-06-23] MEDS: Levothyroxine 75 MCG TAB PO SCH (09:41)
[2017-06-23] MEDS: Pantoprazole 40 mg EC Tab PO SCH (09:42)
--- NOTE | 2017-06-23 13:36 | CP.PCM.PN ---
<Erickson Stone - Last Filed: 06/23/17 13:34> Subjective - Date & Time of Evaluation Date of Evaluation: 06/23/17 Time of Evaluation: 13:34 - Subjective Subjective: 57 y/o male patient was seen at bedside this morning concerning bilateral venous stasis ulcerations of the lower extremities. Pt is well know to podiatry service for this issue due to recurrence of ulcerations as a result of poor outpatient compliance. He denies n/f/v/c/d/sob. Objective - Vital Signs/Intake and Output Vital Signs (last 24 hours): Temp Pulse Resp BP Pulse Ox 97.7 F 59 L 20 127/85 97 06/23/17 08:27 06/23/17 08:27 06/23/17 08:27 06/23/17 09:42 06/23/17 08:27 Intake and Output: 06/23/17 06/23/17 06:59 18:59 Intake Total 1200 Output Total 2275 Balance -1075 - Medications Medications: Current Medications Arformoterol Tartrate (Brovana) 15 mcg IH [id number] [facility] Last Admin: 06/23/17 07:23 Dose: Not Given Budesonide (Pulmicort Respules) 0.5 mg IH [id number] [facility] Last Admin: 06/23/17 07:24 Dose: Not Given Docusate Sodium (Colace) 100 mg PO BID [facility] Last Admin: 06/23/17 09:41 Dose: 100 mg Furosemide (Lasix) 80 mg PO DAILY [facility] Last Admin: 06/23/17 09:41 Dose: 80 mg Gabapentin (Neurontin) 300 mg PO TID [facility] PRN Reason: Protocol Last Admin: 06/23/17 13:00 Dose: 300 mg Hydralazine HCl (Apresoline) 25 mg PO Q8 [facility] Last Admin: 06/23/17 13:00 Dose: 25 mg Meropenem 1g/NS 100mL IVPB (Meropenem 1g/Ns 100ml Ivpb) 1 gm in 100 mls @ 100 mls/hr IVPB Q8 [facility] PRN Reason: Protocol Stop: 06/29/17 22:01 Last Admin: 06/23/17 13:01 Dose: 100 mls/hr Vancomycin HCl (Vancomycin 1gm) 1 gm in 250 mls @ 167 mls/hr IVPB 0600,1800 [facility] PRN Reason: Protocol Stop: 06/29/20 19:01 Last Admin: 06/23/17 06:53 Dose: 167 mls/hr Insulin Human Regular (Humulin R Med) 0 units SC ACHS [facility] PRN Reason: Protocol Last Admin: 06/23/17 12:15 Dose: Not Given Lactobacillus Acidophilus (Bacid Acidophilus) 1 cap PO BID [facility] Last Admin: 06/23/17 09:40 Dose: 1 cap Levothyroxine Sodium (Synthroid) 75 mcg PO DAILY [facility] Last Admin: 06/23/17 09:41 Dose: 75 mcg Losartan Potassium (Cozaar) 100 mg PO DAILY [facility] Last Admin: 06/23/17 09:42 Dose: 100 mg Metoprolol Tartrate (Lopressor) 25 mg PO BID [facility] Last Admin: 06/23/17 09:42 Dose: 25 mg Montelukast Sodium (Singulair) 10 mg PO DAILY [facility] Last Admin: 06/23/17 09:40 Dose: 10 mg Oxycodone HCl (Oxycontin Extended Release Tab) 80 mg PO Q8H [facility] Last Admin: 06/23/17 09:45 Dose: 80 mg Oxycodone/Acetaminophen (Percocet 10/325 Mg Tab) 1 tab PO Q6H PRN PRN Reason: Pain, moderate (4-7) Last Admin: 06/23/17 13:16 Dose: 1 tab Pantoprazole Sodium (Protonix Ec Tab) 40 mg PO DAILY [facility] Last Admin: 06/23/17 09:42 Dose: 40 mg Potassium Chloride (K-Dur 20 Meq Er Tab) 20 meq PO DAILY [facility] Last Admin: 06/23/17 09:40 Dose: 20 meq Trazodone HCl (Desyrel) 50 mg PO HS [facility] Last Admin: 06/22/17 22:19 Dose: 50 mg Warfarin Sodium 10 mg/ (Warfarin Sodium 1 mg) 11 mg PO 1800 [facility] Last Admin: 06/22/17 18:11 Dose: 11 mg - Labs Labs: 06/23/17 08:50 06/23/17 08:50 PT 17.6 Seconds (9.9-11.8) H 06/22/17 08:00 INR 1.63 (0.93-1.08) H 06/22/17 08:00 APTT 46.9 Seconds (23.7-30.8) H 06/22/17 08:00 - Constitutional Appears: Well, Non-toxic, No Acute Distress - Extremities Exam Additional comments: Bilateral lower extrmeity exam Derm: +1 pitting edema to legs bilateral, localized erythema to mid-calf bilateral. Cellulitis localized to superficial ulcerations along: Left: Open wound to Anterior and lateral mid-leg region with active serous drainage absent undermining on a granular fibrotic base with jamila-wound macerations. No PTB Right: Open wounds to distal 1/3 of leg , superficial open lesions on the posterior aspect of left leg, medial aspect of right leg- granular base, no purulence, Moderate serous drainage, no active bleeding, no undermining, no tracking, no probe to bone Vasc: Non-palpable pedal pulses due to edema b/l, TG warm to warm, CFT < 3 sec to all digits, +1 pitting edema Neuro: grossly diminished MUSC: pain on palpation of posterior and medial legs b/l - Psychiatric Exam Psychiatric exam: Normal Affect, Normal Mood - Skin Skin Exam: Normal Color, Warm Assessment and Plan - Assessment and Plan (Free Text) Assessment: 57 y/o male presents with cellulitis and bilateral superficial venous stasis ulcerations Plan: Patient evaluated and seen at bedside Labs and vitals reviewed; afebrile, WBC 6.4 Continue IV abx per ID Cleansed legs with saline. Bilateral legs dressed with Adaptic, Maxorb, ABD, kerlix WCX Left leg: E.Coli, Pseudomonas podiatry will continue to monitor while patient remains in house <Parish Zavaleta - Last Filed: 06/25/17 08:02> Objective - Vital Signs/Intake and Output Vital Signs (last 24 hours): Temp Pulse Resp BP Pulse Ox 98.8 F 74 20 120/81 98 06/24/17 16:00 06/24/17 17:26 06/24/17 16:00 06/24/17 17:26 06/24/17 16:00 - Labs Labs: 06/24/17 07:55 06/24/17 07:55 PT 17.6 Seconds (9.9-11.8) H 06/22/17 08:00 INR 1.63 (0.93-1.08) H 06/22/17 08:00 APTT 46.9 Seconds (23.7-30.8) H 06/22/17 08:00 Attending/Attestation - Attestation I have personally seen and examined this patient.: Yes I have fully participated in the care of the patient.: Yes I have reviewed all pertinent clinical information, including history, physical exam and plan: Yes
--- NOTE | 2017-06-23 16:50 | CP.PCM.PN ---
<Zayra Lomax - Last Filed: 06/23/17 16:47> Subjective - Date & Time of Evaluation Date of Evaluation: 06/23/17 Time of Evaluation: 10:35 - Subjective Subjective: Patient has been seen and examined at bedside. No overnight events reported. Patient states chills overnight improved and denies fever. Patient denes SOB, CP, Abd Pian, Nausea, Vomitting, Diarrhea. Still complains of b/l lower extremity pain. Patient asked to be switched to Dr. Carballo service. Patient agreed to go to bone scan today Objective - Vital Signs/Intake and Output Vital Signs (last 24 hours): Temp Pulse Resp BP Pulse Ox 98.2 F 63 20 92/52 L 99 06/23/17 16:07 06/23/17 16:07 06/23/17 16:07 06/23/17 16:07 06/23/17 16:07 Intake and Output: 06/23/17 06/23/17 06:59 18:59 Intake Total 1200 800 Output Total 2275 1900 Balance -1075 -1100 - Medications Medications: Current Medications Arformoterol Tartrate (Brovana) 15 mcg IH [id number] [facility] Last Admin: 06/23/17 07:23 Dose: Not Given Budesonide (Pulmicort Respules) 0.5 mg IH [id number] [facility] Last Admin: 06/23/17 07:24 Dose: Not Given Docusate Sodium (Colace) 100 mg PO BID [facility] Last Admin: 06/23/17 09:41 Dose: 100 mg Furosemide (Lasix) 80 mg PO DAILY [facility] Last Admin: 06/23/17 09:41 Dose: 80 mg Gabapentin (Neurontin) 300 mg PO TID [facility] PRN Reason: Protocol Last Admin: 06/23/17 13:00 Dose: 300 mg Hydralazine HCl (Apresoline) 25 mg PO Q8 [facility] Last Admin: 06/23/17 13:00 Dose: 25 mg Meropenem 1g/NS 100mL IVPB (Meropenem 1g/Ns 100ml Ivpb) 1 gm in 100 mls @ 100 mls/hr IVPB Q8 [facility] PRN Reason: Protocol Stop: 06/29/17 22:01 Last Admin: 06/23/17 13:01 Dose: 100 mls/hr Insulin Human Regular (Humulin R Med) 0 units SC ACHS [facility] PRN Reason: Protocol Last Admin: 06/23/17 12:15 Dose: Not Given Lactobacillus Acidophilus (Bacid Acidophilus) 1 cap PO BID [facility] Last Admin: 06/23/17 09:40 Dose: 1 cap Levothyroxine Sodium (Synthroid) 75 mcg PO DAILY [facility] Last Admin: 06/23/17 09:41 Dose: 75 mcg Losartan Potassium (Cozaar) 100 mg PO DAILY [facility] Last Admin: 06/23/17 09:42 Dose: 100 mg Metoprolol Tartrate (Lopressor) 25 mg PO BID [facility] Last Admin: 06/23/17 09:42 Dose: 25 mg Montelukast Sodium (Singulair) 10 mg PO DAILY [facility] Last Admin: 06/23/17 09:40 Dose: 10 mg Oxycodone HCl (Oxycontin Extended Release Tab) 80 mg PO Q8H [facility] Last Admin: 06/23/17 09:45 Dose: 80 mg Oxycodone/Acetaminophen (Percocet 10/325 Mg Tab) 1 tab PO Q6H PRN PRN Reason: Pain, moderate (4-7) Last Admin: 06/23/17 13:16 Dose: 1 tab Pantoprazole Sodium (Protonix Ec Tab) 40 mg PO DAILY [facility] Last Admin: 06/23/17 09:42 Dose: 40 mg Potassium Chloride (K-Dur 20 Meq Er Tab) 20 meq PO DAILY [facility] Last Admin: 06/23/17 09:40 Dose: 20 meq Trazodone HCl (Desyrel) 50 mg PO HS [facility] Last Admin: 06/22/17 22:19 Dose: 50 mg Warfarin Sodium 10 mg/ (Warfarin Sodium 1 mg) 11 mg PO 1800 [facility] Last Admin: 06/22/17 18:11 Dose: 11 mg - Labs Labs: 06/23/17 08:50 06/23/17 08:50 PT 17.6 Seconds (9.9-11.8) H 06/22/17 08:00 INR 1.63 (0.93-1.08) H 06/22/17 08:00 APTT 46.9 Seconds (23.7-30.8) H 06/22/17 08:00 - Constitutional Appears: Well, No Acute Distress - Head Exam Head Exam: ATRAUMATIC, NORMOCEPHALIC - Eye Exam Eye Exam: Normal appearance - ENT Exam ENT Exam: Mucous Membranes Moist - Respiratory Exam Respiratory Exam: Clear to Ausculation Bilateral. absent: Rales, Rhonchi, Wheezes - Cardiovascular Exam Cardiovascular Exam: REGULAR RHYTHM, +S1, +S2 - GI/Abdominal Exam GI & Abdominal Exam: Soft, Normal Bowel Sounds. absent: Tenderness - Extremities Exam Additional comments: b/l venous stasis ulcers. left leg cellulitis wrapped. - Psychiatric Exam Psychiatric exam: Normal Affect, Normal Mood Assessment and Plan - Assessment and Plan (Free Text) Assessment: 57 M with PMHx of morbid obesity, CHF, and DM presents with b/l LE pressure ulcers as well as one on the osei and on bilateral buttocks Plan: 1.) Pressure Ulcers: b/l buttocks, calves; L osei - Podiatry Consult: Waqar. nardas appreciated - ID Consult: Dr. Blanco. Recs appreciated - Wound dressing changes daily - Wound care - Turn patient q 2h - ABx: Merrem day 3, Vanc day 3 Wound culture showed Psuedomonas and E.Coli - Blood culture prelim negative x 3 - f/u B/l LE bone scans - Hot compresses 2.) Hx/o HTN - Losartan 100mg po daily - Lopressor 25mg po bid - Hydralazine 25mg po q8 3.) Hx/o CHF - Lasix 80mg po Daily - K-dur 20mg po Daily 4.) Hx/o Hypothyroidism - Synthroid 75mcg po daily 5.) Hx/o Chronic Pain - Oxycontin 80 q6h and Perc 10/325 q 6 - Trazodone 50mg po hs - Pain management consulted. Recs appreciated. 6.) Hx/o DM - RISS Medium - Accucheck ACHS 7.) Hx of COPD/Asthma - Brovana 15mch inh q12 - Pulmicort 0.5mg inh q12 - Singulair 10mg po qd 8.) Chronic DVT - Coumadin 11mg po daily - Monitor INR GI ppx: protonix 40mg po daily DVT ppx: on Coumadin; SCDs c/i Diet: Heart Healthy Patient seen, reviewed, and discussed with Dr. Samuel. Zayra lomax PGY1 Dispo: Patient did no go for imaging yesterday. He is scheduled for a bone scan today. Patient would like to be on Dr. Carballo service. We will contact him and to see if he wishes to take patient under his service. <Siri Samuel MD - Last Filed: 06/23/17 17:25> Objective - Vital Signs/Intake and Output Vital Signs (last 24 hours): Temp Pulse Resp BP Pulse Ox 98.2 F 63 20 92/52 L 99 06/23/17 16:07 06/23/17 16:07 06/23/17 16:07 06/23/17 16:07 06/23/17 16:07 Intake and Output: 06/23/17 06/23/17 06:59 18:59 Intake Total 1200 800 Output Total 2275 1900 Balance -1075 -1100 - Medications Medications: Current Medications Arformoterol Tartrate (Brovana) 15 mcg IH [id number] [facility] Last Admin: 06/23/17 07:23 Dose: Not Given Budesonide (Pulmicort Respules) 0.5 mg IH [id number] [facility] Last Admin: 06/23/17 07:24 Dose: Not Given Docusate Sodium (Colace) 100 mg PO BID [facility] Last Admin: 06/23/17 09:41 Dose: 100 mg Furosemide (Lasix) 80 mg PO DAILY [facility] Last Admin: 06/23/17 09:41 Dose: 80 mg Gabapentin (Neurontin) 300 mg PO TID [facility] PRN Reason: Protocol Last Admin: 06/23/17 13:00 Dose: 300 mg Hydralazine HCl (Apresoline) 25 mg PO Q8 [facility] Last Admin: 06/23/17 13:00 Dose: 25 mg Meropenem 1g/NS 100mL IVPB (Meropenem 1g/Ns 100ml Ivpb) 1 gm in 100 mls @ 100 mls/hr IVPB Q8 [facility] PRN Reason: Protocol Stop: 06/29/17 22:01 Last Admin: 06/23/17 13:01 Dose: 100 mls/hr Insulin Human Regular (Humulin R Med) 0 units SC ACHS [facility] PRN Reason: Protocol Last Admin: 06/23/17 12:15 Dose: Not Given Lactobacillus Acidophilus (Bacid Acidophilus) 1 cap PO BID [facility] Last Admin: 06/23/17 09:40 Dose: 1 cap Levothyroxine Sodium (Synthroid) 75 mcg PO DAILY [facility] Last Admin: 06/23/17 09:41 Dose: 75 mcg Losartan Potassium (Cozaar) 100 mg PO DAILY [facility] Last Admin: 06/23/17 09:42 Dose: 100 mg Metoprolol Tartrate (Lopressor) 25 mg PO BID [facility] Last Admin: 06/23/17 09:42 Dose: 25 mg Montelukast Sodium (Singulair) 10 mg PO DAILY [facility] Last Admin: 06/23/17 09:40 Dose: 10 mg Oxycodone HCl (Oxycontin Extended Release Tab) 80 mg PO Q8H [facility] Last Admin: 06/23/17 09:45 Dose: 80 mg Oxycodone/Acetaminophen (Percocet 10/325 Mg Tab) 1 tab PO Q6H PRN PRN Reason: Pain, moderate (4-7) Last Admin: 06/23/17 13:16 Dose: 1 tab Pantoprazole Sodium (Protonix Ec Tab) 40 mg PO DAILY [facility] Last Admin: 06/23/17 09:42 Dose: 40 mg Potassium Chloride (K-Dur 20 Meq Er Tab) 20 meq PO DAILY [facility] Last Admin: 06/23/17 09:40 Dose: 20 meq Trazodone HCl (Desyrel) 50 mg PO HS [facility] Last Admin: 06/22/17 22:19 Dose: 50 mg Warfarin Sodium 10 mg/ (Warfarin Sodium 1 mg) 11 mg PO 1800 [facility] Last Admin: 06/22/17 18:11 Dose: 11 mg - Labs Labs: 06/23/17 08:50 06/23/17 08:50 PT 17.6 Seconds (9.9-11.8) H 06/22/17 08:00 INR 1.63 (0.93-1.08) H 06/22/17 08:00 APTT 46.9 Seconds (23.7-30.8) H 06/22/17 08:00 Attending/Attestation - Attestation I have personally seen and examined this patient.: Yes I have fully participated in the care of the patient.: Yes I have reviewed all pertinent clinical information, including history, physical exam and plan: Yes Notes (Text): 06/23/17 17:21 Patient was seen and examined with medical practice assistant. Agreed with resident assessment and plan. 57 year old male with past medical history of chronic LE ulcers, CHF, hypothyroidism, diabetes, DVT on coumadin and chronic opiate dependency who presented with worsening bilateral lower extremity ulcerations and erythema. ESR/CRP were elevated. Wound cultures are growing ESBL and Pseudomonas auregonosa.Blood cultures are negative.Continue with iv antibiotics as per ID and wound care as per podiatry.Patient did not go for bone scan yesterday, the issue was discussed in detail with him.He is agreeable to go for bone scan today.We will follow up results. Management plan was discussed in detail with patient Education was provided. 06/23/17 17:24
[2017-06-23] MEDS: WARFARIN PO SCH (18:05)
--- NOTE | 2017-06-23 20:23 | PN ---
DATE: 06/23/2017 SUBJECTIVE: The patient is in bed, in no acute distress. Nontoxic. PHYSICAL EXAMINATION VITAL SIGNS: Temperature is 97, blood pressure is 120/80, respiratory rate of 20. HEENT: Unremarkable. NECK: Supple. LUNGS: Decreased breath sounds. HEART: Normal S1 and S2. ABDOMEN: Soft. Nontender. LABORATORY DATA: Reveals a white count of 6.4, hemoglobin of 11, BUN of 25, creatinine of 1.3. Microbiology reveals E. coli and Pseudomonas aeruginosa from the left leg culture. The E. coli, ESBL and Pseudomonas is multi-drug resistant. Pseudomonas is sensitive to Cipro; however, resistant to cefepime. Dr. Stone's progress note is reviewed. ASSESSMENT AND PLAN: A 57-year-old male with morbid obesity BMI of 56 with diabetes mellitus, hypertension, chronic obstructive lung disease, depression, hypothyroidism, arthritis, history of renal failure, has been on hemodialysis in the past for a brief period of time, history of DVT admitted with a severe left-sided ESBL, E. coli and Pseudomonas left leg cellulitis, it is foul odorous and significant infection. On examination, it appears to be somewhat improving slowly, currently on meropenem on local wound care and debridement as per podiatry. We will discontinue the vancomycin. Overall prognosis is poor for this morbidly obese male due to significant infection. Ralph lBanco MD
[2017-06-24] MEDS: Oxycodone/Acetaminophen 10/325 mg Tab PO PRN ×3 (02:26→15:58)
[2017-06-24] MEDS: oxyCODONE 80 mg ER Tab (oxyCONTIN) PO SCH ×3 (02:28→18:30)
[2017-06-24] MEDS: Meropenem 1g/NS 100mL IVPB 1 GM/100 ML PIGGYBACK IVPB SCH ×2 (06:14→16:25)
[2017-06-24] MEDS: Arformoterol 15 mcg/2 ml Inh Sol IH SCH (07:40)
[2017-06-24] MEDS: Budesonide 0.5 mg/2 ml Inhal Susp UD IH SCH (07:40)
[2017-06-24] MEDS: Insulin Reg-MEDIUM-Coverage SC SCH ×3 (07:50→16:35)
[2017-06-24 08:09] LABS: HEMATOCRIT 36.6 % (42.0-52.0); MEAN CELL VOLUME 86.1 fl (80.0-105.0); MEAN CORPUSCULAR HEMOGLOBIN 28.2 pg (25.0-35.0); MEAN CORPUSCULAR HGB CONC 32.8 g/dl (31.0-37.0); MEAN PLATELET VOLUME 11.3 fl (7.0-11.0); RED CELL DISTRIBUTION WIDTH 13.9 % (11.5-14.5); WHITE BLOOD COUNT 6.4 10^3/ul (4.5-11.0)
[2017-06-24 08:18] LABS: ALB/GLOB RATIO 0.9 (1.1-1.8); ALKALINE PHOSPHATASE 155 U/L (38-133); ALT/SGPT 31 U/L (7-56); AST/SGOT 36 U/L (15-59); BILIRUBIN,TOTAL 0.6 mg/dL (0.2-1.3); BLOOD UREA NITROGEN 31 mg/dL (7-21); CALCIUM 8.9 mg/dL (8.4-10.5); CARBON DIOXIDE 28 mmol/L (21-33); CHLORIDE 97 mmol/L (98-107); GFR AFRICAN-AMERICAN > 60; GLUCOSE,RANDOM 100 mg/dL (70-110); POTASSIUM 4.8 mmol/L (3.6-5.0); SODIUM 139 mmol/L (132-148); TOTAL PROTEIN 8.3 g/dL (5.8-8.3)
[2017-06-24] MEDS: Lactobacillus Acidophilus 500 MU Cap PO SCH ×2 (10:40→17:27)
[2017-06-24] MEDS: Levothyroxine 75 MCG TAB PO SCH (10:42)
[2017-06-24] MEDS: Potassium Chloride 20 mEq ER Tab PO SCH (10:42)
[2017-06-24] MEDS: Pantoprazole 40 mg EC Tab PO SCH (10:42)
--- NOTE | 2017-06-24 12:26 | CP.PCM.PN ---
Subjective - Date & Time of Evaluation Date of Evaluation: 06/24/17 Time of Evaluation: 10:30 - Subjective Subjective: Still with left leg pain, no fevers overnight, no diarrhea. Objective - Vital Signs/Intake and Output Vital Signs (last 24 hours): Temp Pulse Resp BP Pulse Ox 97.9 F 65 18 114/78 96 06/24/17 06:00 06/24/17 06:15 06/24/17 06:00 06/24/17 06:15 06/24/17 06:00 Intake and Output: 06/24/17 06/24/17 06:59 18:59 Intake Total 840 Output Total 1200 Balance -360 - Medications Medications: Current Medications Arformoterol Tartrate (Brovana) 15 mcg IH [id number] [facility] Last Admin: 06/24/17 07:40 Dose: Not Given Budesonide (Pulmicort Respules) 0.5 mg IH [id number] [facility] Last Admin: 06/24/17 07:40 Dose: Not Given Docusate Sodium (Colace) 100 mg PO BID [facility] Last Admin: 06/23/17 18:05 Dose: 100 mg Furosemide (Lasix) 80 mg PO DAILY [facility] Last Admin: 06/23/17 09:41 Dose: 80 mg Gabapentin (Neurontin) 300 mg PO TID [facility] PRN Reason: Protocol Last Admin: 06/23/17 18:05 Dose: 300 mg Hydralazine HCl (Apresoline) 25 mg PO Q8 [facility] Last Admin: 06/24/17 06:15 Dose: 25 mg Meropenem 1g/NS 100mL IVPB (Meropenem 1g/Ns 100ml Ivpb) 1 gm in 100 mls @ 100 mls/hr IVPB Q8 [facility] PRN Reason: Protocol Stop: 06/29/17 22:01 Last Admin: 06/24/17 06:14 Dose: 100 mls/hr Insulin Human Regular (Humulin R Med) 0 units SC ACHS [facility] PRN Reason: Protocol Last Admin: 06/23/17 22:00 Dose: Not Given Lactobacillus Acidophilus (Bacid Acidophilus) 1 cap PO BID [facility] Last Admin: 06/23/17 18:05 Dose: 1 cap Levothyroxine Sodium (Synthroid) 75 mcg PO DAILY [facility] Last Admin: 06/23/17 09:41 Dose: 75 mcg Losartan Potassium (Cozaar) 100 mg PO DAILY [facility] Last Admin: 06/23/17 09:42 Dose: 100 mg Metoprolol Tartrate (Lopressor) 25 mg PO BID [facility] Last Admin: 06/23/17 18:07 Dose: Not Given Montelukast Sodium (Singulair) 10 mg PO DAILY [facility] Last Admin: 06/23/17 09:40 Dose: 10 mg Oxycodone HCl (Oxycontin Extended Release Tab) 80 mg PO Q8H [facility] Last Admin: 06/24/17 02:28 Dose: 80 mg Oxycodone/Acetaminophen (Percocet 10/325 Mg Tab) 1 tab PO Q6H PRN PRN Reason: Pain, moderate (4-7) Last Admin: 06/24/17 09:30 Dose: 1 tab Pantoprazole Sodium (Protonix Ec Tab) 40 mg PO DAILY [facility] Last Admin: 06/23/17 09:42 Dose: 40 mg Potassium Chloride (K-Dur 20 Meq Er Tab) 20 meq PO DAILY [facility] Last Admin: 06/23/17 09:40 Dose: 20 meq Trazodone HCl (Desyrel) 50 mg PO HS [facility] Last Admin: 06/23/17 22:15 Dose: 50 mg Warfarin Sodium 10 mg/ (Warfarin Sodium 1 mg) 11 mg PO 1800 [facility] Last Admin: 06/23/17 18:05 Dose: 11 mg - Labs Labs: 06/24/17 07:55 06/24/17 07:55 PT 17.6 Seconds (9.9-11.8) H 06/22/17 08:00 INR 1.63 (0.93-1.08) H 06/22/17 08:00 APTT 46.9 Seconds (23.7-30.8) H 06/22/17 08:00 - Constitutional Appears: Non-toxic, No Acute Distress - Head Exam Head Exam: NORMAL INSPECTION - ENT Exam ENT Exam: Mucous Membranes Moist - Neck Exam Neck Exam: absent: Lymphadenopathy, Meningismus - Respiratory Exam Respiratory Exam: Decreased Breath Sounds - Cardiovascular Exam Cardiovascular Exam: +S1, +S2 - GI/Abdominal Exam GI & Abdominal Exam: Soft. absent: Tenderness - Extremities Exam Additional comments: left leg with dressings in place Assessment and Plan - Assessment and Plan (Free Text) Plan: Assessment skin and skin structure infection with bilateral leg infected ulcers in a patient with recurrent leg infections and venous stasis, now growing multidrug resistant Pseudomonas and ESBL E. coli; previous admission he also grew MSSA but not this time S/P wound vacuum placement for upper thigh wounds history of Skin and skin structure infection of the left lower extremity with Pseudomonas, Enterococcus and MRSA in a patient with recurrent left leg infection Morbid obesity with BMI of 43 DM HTN COPD hyopthyroidism bilateral lower extremity swelling due to venous stasis Osteoarthritis Chronic pain syndrome Plan continue Merrem (day 3) - follow up bone scan results to determine duration of therapy and local wound care as per Podiatry will monitor clinically
--- NOTE | 2017-06-24 13:54 | CP.PCM.PN ---
<Tory Griffith - Last Filed: 06/24/17 13:50> Subjective - Date & Time of Evaluation Date of Evaluation: 06/24/17 Time of Evaluation: 13:50 - Subjective Subjective: Podiatry Progress Note 57 year old male patient seen at bedside with attending, Dr. Daniels, for bilateral venous stasis ulcerations. Patient states he is unable to move his left lower leg secondary to 10/10 pain. Patient states he has has these wounds for years but a new wound on his anterior left osei has recently appeared. Patient reports very mild pain to his right leg. Patient has refused evaluation via bone scan because he is unable to tolerate the pain. Patient denies any acute events overnight. Patient denies N/V/F/D/C/SOB. No other pedal complaints at this time. Objective - Vital Signs/Intake and Output Vital Signs (last 24 hours): Temp Pulse Resp BP Pulse Ox 97.9 F 65 18 114/78 96 06/24/17 06:00 06/24/17 10:41 06/24/17 06:00 06/24/17 10:41 06/24/17 06:00 Intake and Output: 06/24/17 06/24/17 06:59 18:59 Intake Total 840 Output Total 1200 Balance -360 - Medications Medications: Current Medications Arformoterol Tartrate (Brovana) 15 mcg IH [id number] [facility] Last Admin: 06/24/17 07:40 Dose: Not Given Budesonide (Pulmicort Respules) 0.5 mg IH [id number] [facility] Last Admin: 06/24/17 07:40 Dose: Not Given Docusate Sodium (Colace) 100 mg PO BID [facility] Last Admin: 06/24/17 10:43 Dose: 100 mg Furosemide (Lasix) 80 mg PO DAILY [facility] Last Admin: 06/24/17 10:41 Dose: 80 mg Gabapentin (Neurontin) 300 mg PO TID [facility] PRN Reason: Protocol Last Admin: 06/24/17 10:41 Dose: 300 mg Hydralazine HCl (Apresoline) 25 mg PO Q8 [facility] Last Admin: 06/24/17 06:15 Dose: 25 mg Meropenem 1g/NS 100mL IVPB (Meropenem 1g/Ns 100ml Ivpb) 1 gm in 100 mls @ 100 mls/hr IVPB Q8 [facility] PRN Reason: Protocol Stop: 06/29/17 22:01 Last Admin: 06/24/17 06:14 Dose: 100 mls/hr Insulin Human Regular (Humulin R Med) 0 units SC ACHS [facility] PRN Reason: Protocol Last Admin: 06/24/17 07:50 Dose: Not Given Lactobacillus Acidophilus (Bacid Acidophilus) 1 cap PO BID [facility] Last Admin: 06/24/17 10:40 Dose: 1 cap Levothyroxine Sodium (Synthroid) 75 mcg PO DAILY [facility] Last Admin: 06/24/17 10:42 Dose: 75 mcg Losartan Potassium (Cozaar) 100 mg PO DAILY [facility] Last Admin: 06/24/17 10:44 Dose: 100 mg Metoprolol Tartrate (Lopressor) 25 mg PO BID [facility] Last Admin: 06/24/17 10:41 Dose: 25 mg Montelukast Sodium (Singulair) 10 mg PO DAILY [facility] Last Admin: 06/24/17 10:43 Dose: 10 mg Oxycodone HCl (Oxycontin Extended Release Tab) 80 mg PO Q8H [facility] Last Admin: 06/24/17 10:43 Dose: 80 mg Oxycodone/Acetaminophen (Percocet 10/325 Mg Tab) 1 tab PO Q6H PRN PRN Reason: Pain, moderate (4-7) Last Admin: 06/24/17 09:30 Dose: 1 tab Pantoprazole Sodium (Protonix Ec Tab) 40 mg PO DAILY [facility] Last Admin: 06/24/17 10:42 Dose: 40 mg Potassium Chloride (K-Dur 20 Meq Er Tab) 20 meq PO DAILY [facility] Last Admin: 06/24/17 10:42 Dose: 20 meq Trazodone HCl (Desyrel) 50 mg PO HS [facility] Last Admin: 06/23/17 22:15 Dose: 50 mg Warfarin Sodium 10 mg/ (Warfarin Sodium 1 mg) 11 mg PO 1800 [facility] Last Admin: 06/23/17 18:05 Dose: 11 mg - Labs Labs: 06/24/17 07:55 06/24/17 07:55 PT 17.6 Seconds (9.9-11.8) H 06/22/17 08:00 INR 1.63 (0.93-1.08) H 06/22/17 08:00 APTT 46.9 Seconds (23.7-30.8) H 06/22/17 08:00 - Constitutional Appears: No Acute Distress - Extremities Exam Additional comments: Bilateral lower extrmeity exam: Dressing to bilateral lower extremity appears clean/dry/intact Derm: +1 pitting edema to legs bilateral, localized erythema to mid-calf bilateral. Cellulitis localized to superficial ulcerations along: Left: Open wounds noted to anterior and lateral mid-leg region with active bleeding upon removal of dressings. Wounds are noted to have a mixed granular- fibrotic base with slight periwound maceration. No probe to bone, undermining, fluctuance, malodor, purulence noted. Right: Open wounds to distal 1/3 of leg , superficial open lesions on the posterior aspect of left leg, medial aspect of right leg- mixed granular- fibrotic base, no purulence, Moderate serous drainage, no active bleeding, no undermining, no tracking, no probe to bone Vasc: Non-palpable pedal pulses due to edema b/l, TG warm to warm, CFT < 3 sec to all digits, +1 pitting edema Neuro: grossly diminished MUSC: pain on palpation of posterior and medial legs b/l - Neurological Exam Neurological Exam: Alert, Awake, Oriented x3 - Psychiatric Exam Psychiatric exam: Normal Affect, Normal Mood Assessment and Plan - Assessment and Plan (Free Text) Assessment: 57 y/o male presents with cellulitis and bilateral superficial venous stasis ulcerations Plan: Patient evaluated and seen at bedside with attending, Dr. Daniels Chart, vitals, labs reviewed = afebrile, WBC WNL @ 6.4 Continue IV abx per ID = Merrem (day 3) Cleansed legs with saline. Bilateral legs dressed with telfa, ABDs, and kerlix Patient agrees to obtaining bone scan today Encourage frequent ambulation Podiatry will continue to follow while in house <Preeti Daniels - Last Filed: 06/28/17 19:58> Objective - Vital Signs/Intake and Output Vital Signs (last 24 hours): Temp Pulse Resp BP Pulse Ox 98.8 F 74 20 120/81 98 06/24/17 16:00 06/24/17 17:26 06/24/17 16:00 06/24/17 17:26 06/24/17 16:00 - Labs Labs: 06/24/17 07:55 06/24/17 07:55 PT 17.6 Seconds (9.9-11.8) H 06/22/17 08:00 INR 1.63 (0.93-1.08) H 06/22/17 08:00 APTT 46.9 Seconds (23.7-30.8) H 06/22/17 08:00 Attending/Attestation - Attestation I have personally seen and examined this patient.: Yes I have fully participated in the care of the patient.: Yes I have reviewed all pertinent clinical information, including history, physical exam and plan: Yes
--- NOTE | 2017-06-24 15:05 | CP.PCM.DIS ---
<Zayra Green - Last Filed: 06/24/17 15:07> Provider - Provider Date of Admission: 06/20/17 12:17 Attending physician: Angelica Corral MD Primary care physician: Yvon Gonzalez MD Consults: ID - Dr. Alba Podiatry - Dr. Erickson Stone Time Spent in preparation of Discharge (in minutes): 45 Hospital Course - Lab Results Lab Results: Most Recent Lab Values WBC 6.4 10^3/ul (4.5-11.0) 06/24/17 07:55 RBC 4.25 10^6/uL (3.5-6.1) 06/24/17 07:55 Hgb 12.0 g/dL (14.0-18.0) L 06/24/17 07:55 Hct 36.6 % (42.0-52.0) L 06/24/17 07:55 MCV 86.1 fl (80.0-105.0) 06/24/17 07:55 MCH 28.2 pg (25.0-35.0) 06/24/17 07:55 MCHC 32.8 g/dl (31.0-37.0) 06/24/17 07:55 RDW 13.9 % (11.5-14.5) 06/24/17 07:55 Plt Count 194 10^3/uL (120.0-450.0) 06/24/17 07:55 MPV 11.3 fl (7.0-11.0) H 06/24/17 07:55 Gran % 66.7 % (50.0-68.0) 06/22/17 08:00 Lymph % (Auto) 20.7 % (22.0-35.0) L 06/22/17 08:00 [place] % (Auto) 7.0 % (1.0-6.0) H 06/22/17 08:00 Eos % (Auto) 5.2 % (1.5-5.0) H 06/22/17 08:00 Baso % (Auto) 0.4 % (0.0-3.0) 06/22/17 08:00 Gran # 4.49 (1.4-6.5) 06/22/17 08:00 Lymph # 1.4 (1.2-3.4) 06/22/17 08:00 [place] # 0.5 (0.1-0.6) 06/22/17 08:00 Eos # 0.4 (0.0-0.7) 06/22/17 08:00 Baso # 0.03 K/mm3 (0.0-2.0) 06/22/17 08:00 ESR 108 mm/hr (0.00-15.0) H 06/20/17 13:46 PT 17.6 Seconds (9.9-11.8) H 06/22/17 08:00 INR 1.63 (0.93-1.08) H 06/22/17 08:00 APTT 46.9 Seconds (23.7-30.8) H 06/22/17 08:00 pO2 58 mm/Hg (30-55) H 06/20/17 09:30 VBG pH 7.42 (7.32-7.43) 06/20/17 09:30 VBG pCO2 52.0 (40-60) 06/20/17 09:30 VBG HCO3 33.7 mmol/l (21-28) H 06/20/17 09:30 VBG Total CO2 35.3 mmol.L (22-28) H 06/20/17 09:30 VBG O2 Sat (Calc) 94.8 % (40-65) H 06/20/17 09:30 VBG Base Excess 7.8 mmol/L (0.0-2.0) H 06/20/17 09:30 VBG Potassium 4.3 mmol/L (3.6-5.2) 06/20/17 09:30 Sodium 134.0 mmol/L (132-148) 06/20/17 09:30 Chloride 97.0 mmol/L (98-107) L 06/20/17 09:30 Glucose 128 mg/dl (75-110) H 06/20/17 09:30 Lactate 0.9 mmol/L (0.7-2.1) 06/20/17 09:30 FiO2 21.0 % 06/20/17 09:30 Sodium 139 mmol/L (132-148) 06/24/17 07:55 Potassium 4.8 mmol/L (3.6-5.0) 06/24/17 07:55 Chloride 97 mmol/L (98-107) L 06/24/17 07:55 Carbon Dioxide 28 mmol/L (21-33) 06/24/17 07:55 Anion Gap 19 (10-20) 06/24/17 07:55 BUN 31 mg/dL (7-21) H 06/24/17 07:55 Creatinine 1.2 mg/dL (0.5-1.4) 06/24/17 07:55 Est GFR ( Amer) > 60 06/24/17 07:55 Est GFR (Non-Af Amer) > 60 06/24/17 07:55 POC Glucose (mg/dL) 124 mg/dL (65-110) H 06/24/17 11:37 Random Glucose 100 mg/dL (70-110) 06/24/17 07:55 Calcium 8.9 mg/dL (8.4-10.5) 06/24/17 07:55 Phosphorus 3.3 mg/dL (2.5-4.5) 06/22/17 08:00 Magnesium 1.8 mg/dL (1.7-2.2) 06/22/17 08:00 Total Bilirubin 0.6 mg/dL (0.2-1.3) 06/24/17 07:55 AST 36 U/L (15-59) 06/24/17 07:55 ALT 31 U/L (7-56) 06/24/17 07:55 Alkaline Phosphatase 155 U/L (38-133) H 06/24/17 07:55 C-React Prot High Sens > 15.00 mg/L (1.00-3.00) H 06/20/17 13:46 Total Protein 8.3 g/dL (5.8-8.3) 06/24/17 07:55 Albumin 3.9 g/dL (3.0-4.8) 06/24/17 07:55 Globulin 4.4 gm/dL 06/24/17 07:55 Albumin/Globulin Ratio 0.9 (1.1-1.8) L 06/24/17 07:55 Venous Blood Potassium 4.3 mmol/L (3.6-5.2) 06/20/17 09:30 - Hospital Course Hospital Course: HPI: 57 M w/ PMHx of morbid obesity, recurrent ulcers on b/l LE and buttocks, CHF, hypothyroidism. 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 Reported pressure ulcers for two weeks prior to hospitalization. Patient was diagnosed with b/l LE pressure ulcers and Left lower extremity cellulitis being treated with IV Meropenem. Patient will be transferred to TCU to continue treatment. Refused imaging to r/ o Osteomyelitis during stay. Blood cultures were negative x 4 days. Wound cultures grew ESBL E.Coli an Pseudomonas Aeruginosa. ID and Podiatry were consulted on the case. Patient is agreeable to plan. PSHx: B/l knee surgery, thigh surgery, ankle surgery PMHx: Morbid obesity; Pressure ulcers on the back of thighs, buttocks, and lower legs due to immobility, CHF, HTN, HLD, DM, Hypothyroidism, Chronic Pain Allergies: NKDA Patient seen, reviewed, and discussed with Attending. Zayra Green - PGY1 - Date & Time of H&P Date of H&P: 06/24/17 Time of H&P: 11:00 Discharge Exam - Head Exam Head Exam: ATRAUMATIC, NORMAL INSPECTION, NORMOCEPHALIC - Eye Exam Eye Exam: EOMI, Normal appearance - Respiratory Exam Respiratory Exam: Clear to PA & Lateral - Cardiovascular Exam Cardiovascular Exam: +S1, +S2 - GI/Abdominal Exam GI & Abdominal Exam: Normal Bowel Sounds, Soft. absent: Tenderness - Extremities Exam Additional comments: b/l lower extremity ulcers and Left Lower Extremity cellulitis. Currently wrapped. - Neurological Exam Neurological exam: Alert, Oriented x3 - Psychiatric Exam Psychiatric exam: Normal Affect, Normal Mood Discharge Plan - Follow Up Plan Condition: FAIR Disposition: REHAB FACILITY/REHAB UNIT Instructions: Cellulitis (DC), Diabetes Mellitus Type 1 in Adults (DC) Additional Instructions: Discharging to TCU Room 316 Referrals: Ralph Blanco MD [Staff Provider] - Erickson Stone DPM [Resident] - Yvon Gonzalez MD [Primary Care Provider] - <Lizzie AUGUSTIN,[facility] - Last Filed: 06/24/17 16:28> Provider - Provider Date of Admission: 06/20/17 12:17 Attending physician: Angelica Corral MD Primary care physician: Yvon Gonzalez MD Hospital Course - Lab Results Lab Results: Most Recent Lab Values WBC 6.4 10^3/ul (4.5-11.0) 06/24/17 07:55 RBC 4.25 10^6/uL (3.5-6.1) 06/24/17 07:55 Hgb 12.0 g/dL (14.0-18.0) L 06/24/17 07:55 Hct 36.6 % (42.0-52.0) L 06/24/17 07:55 MCV 86.1 fl (80.0-105.0) 06/24/17 07:55 MCH 28.2 pg (25.0-35.0) 06/24/17 07:55 MCHC 32.8 g/dl (31.0-37.0) 06/24/17 07:55 RDW 13.9 % (11.5-14.5) 06/24/17 07:55 Plt Count 194 10^3/uL (120.0-450.0) 06/24/17 07:55 MPV 11.3 fl (7.0-11.0) H 06/24/17 07:55 Gran % 66.7 % (50.0-68.0) 06/22/17 08:00 Lymph % (Auto) 20.7 % (22.0-35.0) L 06/22/17 08:00 [place] % (Auto) 7.0 % (1.0-6.0) H 06/22/17 08:00 Eos % (Auto) 5.2 % (1.5-5.0) H 06/22/17 08:00 Baso % (Auto) 0.4 % (0.0-3.0) 06/22/17 08:00 Gran # 4.49 (1.4-6.5) 06/22/17 08:00 Lymph # 1.4 (1.2-3.4) 06/22/17 08:00 [place] # 0.5 (0.1-0.6) 06/22/17 08:00 Eos # 0.4 (0.0-0.7) 06/22/17 08:00 Baso # 0.03 K/mm3 (0.0-2.0) 06/22/17 08:00 ESR 108 mm/hr (0.00-15.0) H 06/20/17 13:46 PT 17.6 Seconds (9.9-11.8) H 06/22/17 08:00 INR 1.63 (0.93-1.08) H 06/22/17 08:00 APTT 46.9 Seconds (23.7-30.8) H 06/22/17 08:00 pO2 58 mm/Hg (30-55) H 06/20/17 09:30 VBG pH 7.42 (7.32-7.43) 06/20/17 09:30 VBG pCO2 52.0 (40-60) 06/20/17 09:30 VBG HCO3 33.7 mmol/l (21-28) H 06/20/17 09:30 VBG Total CO2 35.3 mmol.L (22-28) H 06/20/17 09:30 VBG O2 Sat (Calc) 94.8 % (40-65) H 06/20/17 09:30 VBG Base Excess 7.8 mmol/L (0.0-2.0) H 06/20/17 09:30 VBG Potassium 4.3 mmol/L (3.6-5.2) 06/20/17 09:30 Sodium 134.0 mmol/L (132-148) 06/20/17 09:30 Chloride 97.0 mmol/L (98-107) L 06/20/17 09:30 Glucose 128 mg/dl (75-110) H 06/20/17 09:30 Lactate 0.9 mmol/L (0.7-2.1) 06/20/17 09:30 FiO2 21.0 % 06/20/17 09:30 Sodium 139 mmol/L (132-148) 06/24/17 07:55 Potassium 4.8 mmol/L (3.6-5.0) 06/24/17 07:55 Chloride 97 mmol/L (98-107) L 06/24/17 07:55 Carbon Dioxide 28 mmol/L (21-33) 06/24/17 07:55 Anion Gap 19 (10-20) 06/24/17 07:55 BUN 31 mg/dL (7-21) H 06/24/17 07:55 Creatinine 1.2 mg/dL (0.5-1.4) 06/24/17 07:55 Est GFR ( Amer) > 60 06/24/17 07:55 Est GFR (Non-Af Amer) > 60 06/24/17 07:55 POC Glucose (mg/dL) 124 mg/dL (65-110) H 06/24/17 11:37 Random Glucose 100 mg/dL (70-110) 06/24/17 07:55 Calcium 8.9 mg/dL (8.4-10.5) 06/24/17 07:55 Phosphorus 3.3 mg/dL (2.5-4.5) 06/22/17 08:00 Magnesium 1.8 mg/dL (1.7-2.2) 06/22/17 08:00 Total Bilirubin 0.6 mg/dL (0.2-1.3) 06/24/17 07:55 AST 36 U/L (15-59) 06/24/17 07:55 ALT 31 U/L (7-56) 06/24/17 07:55 Alkaline Phosphatase 155 U/L (38-133) H 06/24/17 07:55 C-React Prot High Sens > 15.00 mg/L (1.00-3.00) H 06/20/17 13:46 Total Protein 8.3 g/dL (5.8-8.3) 06/24/17 07:55 Albumin 3.9 g/dL (3.0-4.8) 06/24/17 07:55 Globulin 4.4 gm/dL 06/24/17 07:55 Albumin/Globulin Ratio 0.9 (1.1-1.8) L 06/24/17 07:55 Venous Blood Potassium 4.3 mmol/L (3.6-5.2) 06/20/17 09:30 Attending/Attestation - Attestation I have personally seen and examined this patient.: Yes I have fully participated in the care of the patient.: Yes I have reviewed all pertinent clinical information, including history, physical exam and plan: Yes Notes (Text): 06/24/17 16:25 Patient was seen and examined with medical billing and coding instructor. 57 year old male with past medical history of chronic LE ulcers, CHF, hypothyroidism, diabetes, DVT on Coumadin and chronic opiate dependency who presented with worsening bilateral lower extremity ulcerations and erythema. ESR/CRP were elevated. Wound cultures are growing ESBL and Pseudomonas auregonosa .Patient is on Meropenem . Blood cultures are negative.He was refusing bone scan , finally had it done today, results are pending.Patient will be discharged to TCU.The durating of antibiotics will be decided depending on bone scan results. Podiatry and ID are following. Management plan was discussed in detail with patient Education was provided.
[2017-06-24 16:57] VITALS: BP 120/81; PULSE 74; RESP 20; TEMP 98.8; O2SAT 98
[2017-06-24] MEDS: WARFARIN PO SCH (17:37)
--- NOTE | 2017-06-24 18:08 | NM ---
PROCEDURE: Three-phase Body Bone Scan of the lower extremities HISTORY: R/O OSTEO OF LEFT LEG COMPARISON: Comparison is made to the previous study dated 06/22/2015 TECHNIQUE: Following administration of 30 miCu of Tc MDP multiplanar whole body images were obtained. FINDINGS: Again noted are small foci of increased radiotracer accumulation around the left knee prosthesis. There is increased blood flow hyperemia and delayed radiotracer accumulation at the distal right foot may represent osteomyelitis. Degenerative uptake: Hyperemia and increased delayed uptake seen at the left ankle suggestive of arthritic degenerative changes. Increased radiotracer uptake also seen at the right ankle suggestive of arthritic degenerative changes. Mild diffuse tracer uptake and hyperemia seen at the left leg could be due to cellulitis or soft tissue infection. IMPRESSION: Focal hyperemia and increased delayed radiotracer accumulation at the distal right foot suspicious for osteomyelitis. 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 No significant interval change in mildly increased tracer accumulation around the left knee prosthesis since the previous exam.
== END 2017-06-24 18:57 | DRG 637 ==
LOC: ED 09:21 → ERH 12:17 → 3RSO 13:53
PROVIDERS: ADMIT Internal Medicine; ATTEND Internal Medicine
DX: E11.622 Type 2 diabetes mellitus with other skin ulcer (principal); L89.313 Pressure ulcer of right buttock, stage 3; L89.323 Pressure ulcer of left buttock, stage 3; E11.22 Type 2 diabetes mellitus with diabetic chronic kidney disease; E11.51 Type 2 diabetes mellitus with diabetic peripheral angiopathy without gangrene; I13.0 Hypertensive heart and chronic kidney disease with heart failure and stage 1 through stage 4 chronic kidney disease, or unspecified chronic kidney disease; I50.9 Heart failure, unspecified; F11.20 Opioid dependence, uncomplicated; L97.929 Non-pressure chronic ulcer of unspecified part of left lower leg with unspecified severity; L97.919 Non-pressure chronic ulcer of unspecified part of right lower leg with unspecified severity; L03.116 Cellulitis of left lower limb; Z68.43 Body mass index [BMI] 50.0-59.9, adult; I87.2 Venous insufficiency (chronic) (peripheral); J44.9 Chronic obstructive pulmonary disease, unspecified; F32.9 Major depressive disorder, single episode, unspecified; I25.10 Atherosclerotic heart disease of native coronary artery without angina pectoris; E78.5 Hyperlipidemia, unspecified; E03.9 Hypothyroidism, unspecified; N18.9 Chronic kidney disease, unspecified; E66.01 Morbid (severe) obesity due to excess calories; M79.7 Fibromyalgia; G89.4 Chronic pain syndrome; M19.90 Unspecified osteoarthritis, unspecified site; Z79.4 Long term (current) use of insulin; Z86.718 Personal history of other venous thrombosis and embolism; Z79.01 Long term (current) use of anticoagulants; Z91.19 Patient's noncompliance with other medical treatment and regimen; Z96.653 Presence of artificial knee joint, bilateral; Z16.24 Resistance to multiple antibiotics

== ENCOUNTER 2017-06-24 20:47 | Inpatient (IN) | payer OTHER ==
[2017-06-24] MEDS: Meropenem 1g/NS 100mL IVPB 1 GM/100 ML PIGGYBACK IVPB SCH (22:05)
[2017-06-24] MEDS: oxyCODONE 80 mg ER Tab (oxyCONTIN) PO SCH (22:05)
[2017-06-24] MEDS: Insulin Reg-MEDIUM-Coverage SC SCH (22:07)
[2017-06-24] MEDS: Oxycodone/Acetaminophen 10/325 mg Tab PO PRN (22:22)
[2017-06-24 22:23] VITALS: BMI 53.5
[2017-06-25] MEDS: Oxycodone/Acetaminophen 10/325 mg Tab PO PRN ×3 (04:43→17:44)
[2017-06-25] MEDS: oxyCODONE 80 mg ER Tab (oxyCONTIN) PO SCH ×3 (05:53→21:16)
[2017-06-25] MEDS: Meropenem 1g/NS 100mL IVPB 1 GM/100 ML PIGGYBACK IVPB SCH ×3 (05:54→21:17)
[2017-06-25] MEDS: Levothyroxine 75 MCG TAB PO SCH (05:59)
[2017-06-25] MEDS: Pantoprazole 40 mg EC Tab PO SCH (05:59)
--- NOTE | 2017-06-25 06:10 | CP.PCM.PN ---
Subjective - Date & Time of Evaluation Date of Evaluation: 06/25/17 Time of Evaluation: 06:06 - Subjective Subjective: S: It was requested to co-sign orders by medical office supervisor. I saw patient. has no complaints at this time. Medical record was reviewed. O:VSS. Last Vital Signs 3 Temp 98 F 06/24/17 22:14 Pulse 64 06/25/17 05:54 Resp 18 06/24/17 22:14 BP 111/73 06/25/17 05:54 Pulse Ox Obese person, not in distress. LUNGS:Normal breathing pattern. A:Recurrent ulcers of B/L lower extremities. P:Orders entered by medical office supervisor were co-signed. Objective - Vital Signs/Intake and Output Vital Signs (last 24 hours): Temp Pulse Resp BP Pulse Ox 98 F 64 18 111/73 06/24/17 22:14 06/25/17 05:54 06/24/17 22:14 06/25/17 05:54 - Medications Medications: Current Medications Arformoterol Tartrate (Brovana) 15 mcg IH [id number] [facility] PRN Reason: Protocol Budesonide (Pulmicort Respules) 0.5 mg IH [id number] [facility] PRN Reason: Protocol Docusate Sodium (Colace) 100 mg PO BID [facility] PRN Reason: Protocol Furosemide (Lasix) 80 mg PO DAILY [facility] PRN Reason: Protocol Gabapentin (Neurontin) 300 mg PO TID [facility] PRN Reason: Protocol Hydralazine HCl (Apresoline) 25 mg PO Q8 [facility] PRN Reason: Protocol Last Admin: 06/25/17 05:54 Dose: Not Given Meropenem 1g/NS 100mL IVPB (Meropenem 1g/Ns 100ml Ivpb) 1 gm in 100 mls @ 100 mls/hr IVPB Q8 [facility] PRN Reason: Protocol Stop: 06/30/17 22:01 Last Admin: 06/25/17 05:54 Dose: 100 mls/hr Insulin Human Regular (Humulin R Med) 0 units SC ACHS [facility] PRN Reason: Protocol Last Admin: 06/24/17 22:07 Dose: Not Given Lactobacillus Acidophilus (Bacid Acidophilus) 1 cap PO BID [facility] PRN Reason: Protocol Levothyroxine Sodium (Synthroid) 75 mcg PO 0600 [facility] Last Admin: 06/25/17 05:59 Dose: 75 mcg Losartan Potassium (Cozaar) 100 mg PO DAILY [facility] PRN Reason: Protocol Metoprolol Tartrate (Lopressor) 25 mg PO BID [facility] PRN Reason: Protocol Montelukast Sodium (Singulair) 10 mg PO DAILY [facility] PRN Reason: Protocol Oxycodone HCl (Oxycontin Extended Release Tab) 80 mg PO Q8H [facility] PRN Reason: Protocol Last Admin: 06/25/17 05:53 Dose: 80 mg Oxycodone/Acetaminophen (Percocet 10/325 Mg Tab) 1 tab PO Q6H PRN; Protocol PRN Reason: Pain, moderate (4-7) Last Admin: 06/25/17 04:43 Dose: 1 tab Pantoprazole Sodium (Protonix Ec Tab) 40 mg PO 0600 [facility] Last Admin: 06/25/17 05:59 Dose: 40 mg Potassium Chloride (K-Dur 20 Meq Er Tab) 20 meq PO DAILY [facility] PRN Reason: Protocol Trazodone HCl (Desyrel) 50 mg PO HS [facility] PRN Reason: Protocol Last Admin: 06/24/17 22:06 Dose: 50 mg Warfarin Sodium (Coumadin) 1 mg PO 1800 [facility] PRN Reason: Protocol Warfarin Sodium (Coumadin) 10 mg PO 1800 [facility] PRN Reason: Protocol
[2017-06-25] MEDS: Insulin Reg-MEDIUM-Coverage SC SCH ×4 (06:40→21:36)
[2017-06-25] MEDS: Arformoterol 15 mcg/2 ml Inh Sol IH SCH ×2 (07:23→20:18)
[2017-06-25] MEDS: Budesonide 0.5 mg/2 ml Inhal Susp UD IH SCH ×2 (07:23→20:18)
--- NOTE | 2017-06-25 08:37 | CP.PCM.PN ---
<Erickson Stone - Last Filed: 06/25/17 08:34> Subjective - Date & Time of Evaluation Date of Evaluation: 06/25/17 Time of Evaluation: 08:34 - Subjective Subjective: Podiatry Progress Note 57 year old male patient well known to podiatry (non-compliant in terms of clinical follow ups and consistent woundcare) was seen at bedside this morning concerning bilateral venous stasis ulcerations. AAO x3. Patient admits to mild pain to his right leg at the site of ulceration. Patient denies any acute events overnight. Patient denies N/V/F/D/C/SOB. No other pedal complaints at this time. Objective - Vital Signs/Intake and Output Vital Signs (last 24 hours): Temp Pulse Resp BP Pulse Ox 98 F 66 18 111/73 06/24/17 22:14 06/25/17 07:28 06/24/17 22:14 06/25/17 05:54 - Medications Medications: Current Medications Arformoterol Tartrate (Brovana) 15 mcg IH [id number] [facility] PRN Reason: Protocol Last Admin: 06/25/17 07:23 Dose: 15 mcg Budesonide (Pulmicort Respules) 0.5 mg IH [id number] [facility] PRN Reason: Protocol Last Admin: 06/25/17 07:23 Dose: 0.5 mg Docusate Sodium (Colace) 100 mg PO BID [facility] PRN Reason: Protocol Furosemide (Lasix) 80 mg PO DAILY [facility] PRN Reason: Protocol Gabapentin (Neurontin) 300 mg PO TID [facility] PRN Reason: Protocol Hydralazine HCl (Apresoline) 25 mg PO Q8 [facility] PRN Reason: Protocol Last Admin: 06/25/17 05:54 Dose: Not Given Meropenem 1g/NS 100mL IVPB (Meropenem 1g/Ns 100ml Ivpb) 1 gm in 100 mls @ 100 mls/hr IVPB Q8 [facility] PRN Reason: Protocol Stop: 06/30/17 22:01 Last Admin: 06/25/17 05:54 Dose: 100 mls/hr Insulin Human Regular (Humulin R Med) 0 units SC ACHS [facility] PRN Reason: Protocol Last Admin: 06/25/17 06:40 Dose: Not Given Lactobacillus Acidophilus (Bacid Acidophilus) 1 cap PO BID [facility] PRN Reason: Protocol Levothyroxine Sodium (Synthroid) 75 mcg PO 0600 [facility] Last Admin: 06/25/17 05:59 Dose: 75 mcg Losartan Potassium (Cozaar) 100 mg PO DAILY [facility] PRN Reason: Protocol Metoprolol Tartrate (Lopressor) 25 mg PO BID [facility] PRN Reason: Protocol Montelukast Sodium (Singulair) 10 mg PO DAILY [facility] PRN Reason: Protocol Oxycodone HCl (Oxycontin Extended Release Tab) 80 mg PO Q8H [facility] PRN Reason: Protocol Last Admin: 06/25/17 05:53 Dose: 80 mg Oxycodone/Acetaminophen (Percocet 10/325 Mg Tab) 1 tab PO Q6H PRN; Protocol PRN Reason: Pain, moderate (4-7) Last Admin: 06/25/17 04:43 Dose: 1 tab Pantoprazole Sodium (Protonix Ec Tab) 40 mg PO 0600 [facility] Last Admin: 06/25/17 05:59 Dose: 40 mg Potassium Chloride (K-Dur 20 Meq Er Tab) 20 meq PO DAILY [facility] PRN Reason: Protocol Trazodone HCl (Desyrel) 50 mg PO HS [facility] PRN Reason: Protocol Last Admin: 06/24/17 22:06 Dose: 50 mg Warfarin Sodium (Coumadin) 1 mg PO 1800 [facility] PRN Reason: Protocol Warfarin Sodium (Coumadin) 10 mg PO 1800 [facility] PRN Reason: Protocol - Constitutional Appears: Well, Non-toxic, No Acute Distress - Extremities Exam Additional comments: Bilateral lower extrmeity exam Derm: +1 pitting edema to legs bilateral, localized erythema to mid-calf bilateral. Cellulitis localized to superficial ulcerations along: Left: Open wound to Anterior and lateral mid-leg region with active serous drainage absent undermining on a granular fibrotic base with jamila-wound macerations. No PTB Right: Open wounds to distal 1/3 of leg , superficial open lesions on the posterior aspect of left leg, medial aspect of right leg- granular base, no purulence, Moderate serous drainage, no active bleeding, no undermining, no tracking, no probe to bone. No open wound noted to distal aspect of right foot. Vasc: Non-palpable pedal pulses due to edema b/l, TG warm to warm, CFT < 3 sec to all digits, +1 pitting edema Neuro: grossly diminished MUSC: pain on palpation of posterior and medial legs b/l - Neurological Exam Neurological Exam: Alert, Awake, Oriented x3 - Psychiatric Exam Psychiatric exam: Normal Affect, Normal Mood - Skin Skin Exam: Normal Color, Warm Assessment and Plan - Assessment and Plan (Free Text) Assessment: 57 y/o male presents with cellulitis and bilateral superficial venous stasis ulcerations Plan: Patient evaluated and seen at bedside Labs and vitals reviewed; afebrile Continue IV abx per ID Cleansed legs with saline. Bilateral legs dressed with Xeroform,4x4, ABD, kerlix WCX Left leg: E.Coli, Pseudomonas Bone scan reveals signs suspicious for OM to distal RIGHT foot, however no open wound or clinical signs of infection is noted to RIGHT distal foot Podiatry will continue to monitor while patient remains in house <Parish Zavaleta - Last Filed: 06/26/17 10:21> Objective - Vital Signs/Intake and Output Vital Signs (last 24 hours): Temp Pulse Resp BP Pulse Ox 97.8 F 65 18 94/60 L 96 06/25/17 16:27 06/25/17 16:27 06/25/17 16:27 06/25/17 16:27 06/25/17 16:27 - Medications Medications: Current Medications Arformoterol Tartrate (Brovana) 15 mcg IH [id number] [facility] PRN Reason: Protocol Last Admin: 06/26/17 07:29 Dose: Not Given Budesonide (Pulmicort Respules) 0.5 mg IH [id number] [facility] PRN Reason: Protocol Last Admin: 06/26/17 07:29 Dose: Not Given Docusate Sodium (Colace) 100 mg PO BID [facility] PRN Reason: Protocol Last Admin: 06/25/17 17:45 Dose: 100 mg Furosemide (Lasix) 80 mg PO DAILY [facility] PRN Reason: Protocol Last Admin: 06/25/17 10:32 Dose: Not Given Gabapentin (Neurontin) 300 mg PO QID [facility] PRN Reason: Protocol Last Admin: 06/25/17 21:18 Dose: 300 mg Hydralazine HCl (Apresoline) 25 mg PO Q8 [facility] PRN Reason: Protocol Last Admin: 06/25/17 05:54 Dose: Not Given Meropenem 1g/NS 100mL IVPB (Meropenem 1g/Ns 100ml Ivpb) 1 gm in 100 mls @ 100 mls/hr IVPB Q8 [facility] PRN Reason: Protocol Stop: 06/30/17 22:01 Last Admin: 06/26/17 05:09 Dose: 100 mls/hr Tobramycin Sulfate 300 mg/ (Sodium Chloride) 107.5 mls @ 100 mls/hr IV DAILY [facility] Insulin Human Regular (Humulin R Med) 0 units SC ACHS [facility] PRN Reason: Protocol Last Admin: 06/26/17 06:33 Dose: Not Given Lactobacillus Acidophilus (Bacid Acidophilus) 1 cap PO BID [facility] PRN Reason: Protocol Last Admin: 06/25/17 17:45 Dose: 1 cap Levothyroxine Sodium (Synthroid) 75 mcg PO 0600 [facility] Last Admin: 06/26/17 05:09 Dose: 75 mcg Losartan Potassium (Cozaar) 100 mg PO DAILY [facility] PRN Reason: Protocol Last Admin: 06/25/17 10:22 Dose: 100 mg Metoprolol Tartrate (Lopressor) 25 mg PO BID [facility] PRN Reason: Protocol Last Admin: 06/25/17 10:32 Dose: Not Given Montelukast Sodium (Singulair) 10 mg PO DAILY [facility] PRN Reason: Protocol Last Admin: 06/25/17 10:24 Dose: 10 mg Nystatin (Nystop Topical Powder) 0 gm TOP BID [facility] PRN Reason: Protocol Stop: 07/02/17 10:00 Oxycodone HCl (Oxycontin Extended Release Tab) 80 mg PO Q8H [facility] PRN Reason: Protocol Last Admin: 06/26/17 05:09 Dose: 80 mg Oxycodone HCl (Oxycodone Immediate Release Tab) 15 mg PO Q6H PRN; Protocol PRN Reason: Pain, severe (8-10) Last Admin: 06/26/17 05:44 Dose: 15 mg Pantoprazole Sodium (Protonix Ec Tab) 40 mg PO 0600 [facility] Last Admin: 06/26/17 05:08 Dose: 40 mg Potassium Chloride (K-Dur 20 Meq Er Tab) 20 meq PO DAILY [facility] PRN Reason: Protocol Last Admin: 06/25/17 10:22 Dose: 20 meq Trazodone HCl (Desyrel) 50 mg PO HS [facility] PRN Reason: Protocol Last Admin: 06/25/17 21:17 Dose: 50 mg Warfarin Sodium (Coumadin) 1 mg PO 1800 [facility] PRN Reason: Protocol Last Admin: 06/25/17 18:25 Dose: 1 mg Warfarin Sodium (Coumadin) 10 mg PO 1800 [facility] PRN Reason: Protocol Last Admin: 06/25/17 17:46 Dose: 10 mg - Labs Labs: 06/26/17 06:30 06/26/17 06:30 PT 23.3 Seconds (9.9-11.8) H 06/25/17 09:45 INR 2.16 (0.93-1.08) H 06/25/17 09:45 Attending/Attestation - Attestation I have personally seen and examined this patient.: Yes I have fully participated in the care of the patient.: Yes I have reviewed all pertinent clinical information, including history, physical exam and plan: Yes
[2017-06-25 10:13] LABS: BASO # 0.05 K/mm3 (0.0-2.0); BASO % 0.8 % (0.0-3.0); EOS # 0.4 (0.0-0.7); EOS % 6.5 % (1.5-5.0); GRAN # 3.74 (1.4-6.5); GRAN % 56.6 % (50.0-68.0); HEMATOCRIT 37.1 % (42.0-52.0); LYMPH # 1.9 (1.2-3.4); LYMPH % 28.4 % (22.0-35.0); MEAN CELL VOLUME 87.3 fl (80.0-105.0); MEAN CORPUSCULAR HGB CONC 32.1 g/dl (31.0-37.0); MEAN PLATELET VOLUME 11.8 fl (7.0-11.0); MONO # 0.5 (0.1-0.6); MONO % 7.7 % (1.0-6.0); RED CELL DISTRIBUTION WIDTH 14.1 % (11.5-14.5); WHITE BLOOD COUNT 6.6 10^3/ul (4.5-11.0)
[2017-06-25 10:22] LABS: BILIRUBIN,TOTAL 0.4 mg/dL (0.2-1.3); CALCIUM 9.2 mg/dL (8.4-10.5); INR 2.16 (0.93-1.08); POTASSIUM 4.6 mmol/L (3.6-5.0); TOTAL PROTEIN 7.7 g/dL (5.8-8.3)
[2017-06-25] MEDS: Potassium Chloride 20 mEq ER Tab PO SCH (10:22)
[2017-06-25] MEDS: Lactobacillus Acidophilus 500 MU Cap PO SCH ×2 (10:22→17:45)
--- NOTE | 2017-06-25 10:56 | CARD ---
APPROVED REPORT EKG Measurement Heart [id number] <Conclusion> Normal sinus rhythm Normal ECG
[2017-06-25] MEDS ORDERED: SODIUM CHLORIDE 0.9% IV SCH (13:00)
[2017-06-25] MEDS ORDERED: TOBRAMYCIN IV SCH (13:00)
--- NOTE | 2017-06-25 13:51 | CP.PCM.HP ---
<Zayra Lomax - Last Filed: 06/25/17 14:06> History of Present Illness - History of Present Illness History of Present Illness: 57 M w/ PMHx specifically significant for morbid obesity, recurrent ulcers on b/ l LE and buttocks, and CHF. Patient was treated at [facility] for b/l LE ulcers and Left LE cellulits. Patient was admitted to continue treatment and for reconditioning. PSHx: B/l knee surgery, thigh surgery, ankle surgery PMHx: Morbid obesity; Pressure ulcers on the back of thighs, buttocks, and lower legs due to immobility, CHF, HTN, HLD, DM, Hypothyroidism, Chronic Pain Allergies: NKDA Social Hx: Lives alone, only able to walk about 20 steps before getting completely out of breath, has visiting nurses twice a week for wound management. Denies EtOH or any drug/tobacco use. Fam Hx: Noncontributory Meds: Please review MAR ROS Complains of: B/L LE pain due to ulcers and cellulitis. Left leg > Right. Denies: Headache, dizziness, fever, lightheadedness, chest pain, SOB, palpitations, Abdominal Pain, N/V/D/ or constipation, motor/sensory deficits. Present on Admission - Present on Admission Any Indicators Present on Admission: Yes History of DVT/PE: Yes History of Uncontrolled Diabetes: Yes Urinary Catheter: Yes Review of Systems - Review of Systems Review of Systems: As per HPI Past Patient History - Infectious Disease Hx of Infectious Diseases: None - Tetanus Immunizations Tetanus Immunization: Unknown - Past Medical History & Family History Past Medical History?: Yes - Past Social History Smoking Status: Never Smoked - CARDIAC Hx Congestive Heart Failure: Yes Hx Hypertension: Yes - PULMONARY Hx Chronic Obstructive Pulmonary Disease (COPD): Yes - NEUROLOGICAL Hx Neurological Disorder: No - HEENT Hx HEENT Problems: No - RENAL Hx Chronic Kidney Disease: Yes (required HD in 2016 briefly) - ENDOCRINE/METABOLIC Hx Diabetes Mellitus Type 2: Yes Hx Hypothyroidism: Yes - HEMATOLOGICAL/ONCOLOGICAL Hx Blood Disorders: No - INTEGUMENTARY Hx Dermatological Problems: Yes Hx Cellulitis: Yes (BLE) Other/Comment: both leggs discolored - MUSCULOSKELETAL/RHEUMATOLOGICAL Hx Falls: No - GASTROINTESTINAL Hx Gastrointestinal Disorders: (reflux obese) - GENITOURINARY/GYNECOLOGICAL Hx Reproductive Disorders: No - PSYCHIATRIC Hx Substance Use: No - SURGICAL HISTORY Hx Orthopedic Surgery: Yes (bilateral knee replacement) Other/Comment: total left knee - 1998. right ankle screws - 1987. right hip jason - 1982 - ANESTHESIA Hx Anesthesia: Yes Hx Anesthesia Reactions: No Hx Malignant Hyperthermia: No Meds Allergies/Adverse Reactions: Allergies Allergy/AdvReac Type Severity Reaction Status Date / Time No Known Allergies Allergy Verified 06/20/17 09:36 Physical Exam - Constitutional Appears: Well, Non-toxic, No Acute Distress - Head Exam Head Exam: ATRAUMATIC, NORMOCEPHALIC - ENT Exam ENT Exam: Mucous Membranes Moist - Neck Exam Neck exam: Negative for: Lymphadenopathy - Respiratory Exam Respiratory Exam: Clear to Auscultation Bilateral, NORMAL BREATHING PATTERN. absent: Rales, Rhonchi, Wheezes - Cardiovascular Exam Cardiovascular Exam: +S1, +S2 Additional comments: Heart sounds difficult to hear due to body habitus. - GI/Abdominal Exam GI & Abdominal Exam: Normal Bowel Sounds, Soft. absent: Distended, Organomegaly , Tenderness - Extremities Exam Extremities exam: Positive for: pedal pulses present. Negative for: normal inspection, pedal edema Additional comments: B/l venous stasis ulcers and Left lower extremity Edema (improving) - Neurological Exam Neurological exam: Alert, CN II-XII Intact, Oriented x3 - Psychiatric Exam Psychiatric exam: Normal Affect, Normal Mood Results - Vital Signs Recent Vital Signs: Last Vital Signs Temp 98.1 F 06/25/17 11:46 Pulse 63 06/25/17 11:46 Resp 20 06/25/17 11:46 BP 95/60 L 06/25/17 11:46 Pulse Ox 95 06/25/17 11:46 - Labs Result Diagrams: 06/25/17 09:45 06/25/17 09:45 Labs: Laboratory Results - last 24 hr 06/25/17 06/25/17 06/25/17 01:58 04:54 09:45 WBC 6.6 RBC 4.25 Hgb 11.9 L Hct 37.1 L MCV 87.3 MCH 28.0 MCHC 32.1 RDW 14.1 Plt Count 191 MPV 11.8 H Gran % 56.6 Lymph % (Auto) 28.4 Hardee % (Auto) 7.7 H Eos % (Auto) 6.5 H Baso % (Auto) 0.8 Gran # 3.74 Lymph # 1.9 Hardee # 0.5 Eos # 0.4 Baso # 0.05 PT INR Sodium Potassium Chloride Carbon Dioxide Anion Gap BUN Creatinine Est GFR ( Amer) Est GFR (Non-Af Amer) POC Glucose (mg/dL) 112 H 137 H Random Glucose Calcium Total Bilirubin AST ALT Alkaline Phosphatase Total Protein Albumin Globulin Albumin/Globulin Ratio 06/25/17 06/25/17 09:45 09:45 WBC RBC Hgb Hct MCV MCH MCHC RDW Plt Count MPV Gran % Lymph % (Auto) Hardee % (Auto) Eos % (Auto) Baso % (Auto) Gran # Lymph # Hardee # Eos # Baso # PT 23.3 H INR 2.16 H Sodium 137 Potassium 4.6 Chloride 98 Carbon Dioxide 28 Anion Gap 16 BUN 43 H Creatinine 1.5 H Est GFR ( Amer) 58 Est GFR (Non-Af Amer) 48 POC Glucose (mg/dL) Random Glucose 185 H Calcium 9.2 Total Bilirubin 0.4 AST 29 ALT 32 Alkaline Phosphatase 163 H Total Protein 7.7 Albumin 3.8 Globulin 3.9 Albumin/Globulin Ratio 1.0 L Assessment & Plan - Assessment and Plan (Free Text) Assessment: 57 M w/ PMHx specifically significant for morbid obesity, recurrent ulcers on b/ l LE and buttocks, and CHF. Patient was treated at [facility] for b/l LE ulcers and Left LE cellulits. Patient was admitted to continue treatment and for reconditioning. Plan: 1.) Pressure Ulcers: b/l buttocks, calves; L osei and LLE cellulitis - Podiatry Consult: Arloro. real appreciated - ID Consult: Dr. Blanco. - Wound dressing changes daily - Wound care - Turn patient q 2h - ABx: Merrem day 5, Tobromycin Day 1 per ID. Vancomycin DC'd -Wound cultures showed Psuedomonas and E.Coli - Blood culture prelim negative x 3 - Bone scan shows possible Osteomyelitis. - Hot compresses 2.) Hx/o HTN - Patient hypotensive today at (95/60) - Losartan 100mg po daily (Held) - Lopressor 25mg po bid (Held) - Hydralazine 25mg po q8 (Held) 3.) Hx/o CHF - Lasix 80mg po Daily - K-dur 20mg po Daily -BNP ordered 4.) Hx/o Hypothyroidism - Synthroid 75mcg po daily 5.) Hx/o Chronic Pain - Oxycontin 80 q6h and Perc 10/325 q 6 - Trazodone 50mg po hs - Pain management consulted. 6.) Hx/o DM - RISS Medium - Accucheck ACHS 7.) Hx of COPD/Asthma - Brovana 15mch inh q12 - Pulmicort 0.5mg inh q12 - Singulair 10mg po qd 8.) Chronic DVT - Coumadin 11mg po daily - Monitor INR (2.16 today) GI ppx: protonix 40mg po daily DVT ppx: on Coumadin; SCDs c/i Diet: Heart Healthy Patient seen, reviewed, and discussed with Attending Zayra lomax PGY1 Dispo: - Date & Time Date: 06/25/17 Time: 10:00 <Zakiya Moreno - Last Filed: 06/25/17 15:51> Results - Vital Signs Recent Vital Signs: Last Vital Signs Temp 98.1 F 06/25/17 11:46 Pulse 63 06/25/17 11:46 Resp 20 06/25/17 11:46 BP 95/60 L 06/25/17 11:46 Pulse Ox 95 06/25/17 11:46 - Labs Result Diagrams: 06/25/17 09:45 06/25/17 09:45 Labs: Laboratory Results - last 24 hr 06/25/17 06/25/17 06/25/17 01:58 04:54 09:45 WBC 6.6 RBC 4.25 Hgb 11.9 L Hct 37.1 L MCV 87.3 MCH 28.0 MCHC 32.1 RDW 14.1 Plt Count 191 MPV 11.8 H Gran % 56.6 Lymph % (Auto) 28.4 Hardee % (Auto) 7.7 H Eos % (Auto) 6.5 H Baso % (Auto) 0.8 Gran # 3.74 Lymph # 1.9 Hardee # 0.5 Eos # 0.4 Baso # 0.05 PT INR Sodium Potassium Chloride Carbon Dioxide Anion Gap BUN Creatinine Est GFR ( Amer) Est GFR (Non-Af Amer) POC Glucose (mg/dL) 112 H 137 H Random Glucose Calcium Total Bilirubin AST ALT Alkaline Phosphatase Total Protein Albumin Globulin Albumin/Globulin Ratio 06/25/17 06/25/17 09:45 09:45 WBC RBC Hgb Hct MCV MCH MCHC RDW Plt Count MPV Gran % Lymph % (Auto) Hardee % (Auto) Eos % (Auto) Baso % (Auto) Gran # Lymph # Hardee # Eos # Baso # PT 23.3 H INR 2.16 H Sodium 137 Potassium 4.6 Chloride 98 Carbon Dioxide 28 Anion Gap 16 BUN 43 H Creatinine 1.5 H Est GFR ( Amer) 58 Est GFR (Non-Af Amer) 48 POC Glucose (mg/dL) Random Glucose 185 H Calcium 9.2 Total Bilirubin 0.4 AST 29 ALT 32 Alkaline Phosphatase 163 H Total Protein 7.7 Albumin 3.8 Globulin 3.9 Albumin/Globulin Ratio 1.0 L Attending/Attestation - Attestation I have personally seen and examined this patient.: Yes I have fully participated in the care of the patient.: Yes I have reviewed all pertinent clinical information: Yes Notes (Text): 06/25/17 15:43 attending note; Patient seen and examined with resident in TCU. Patient is a 57-year-old male with past medical history of chronic LE ulcers, CHF, hypothyroidism, diabetes, DVT on coumadin and chronic opiate dependency who presents with worsening bilateral lower extremity ulcerations and erythema. Podiatry and ID evaluation appreciated. currently on meropenem and tobramycin for ESBL and Pseudomonas infection. bone scan showed possible distal right foot osteomyelitis. We will discuss with ID and podiatry. INR is therapeutic. Continue dressing change By podiatry. swelling is improving. Hypotension; hold blood pressure medications. chronic opiate dependency. Continue physical therapy. Upon discharge the patient will follow-up with PMD Dr. Gonzalez. Needs close follow-up with podiatry.
--- NOTE | 2017-06-25 14:01 | CP.PCM.CON ---
History of Present Illness - History of Present Illness History of Present Illness: 56year old male with PMH of DM, HTN, COPD, hypothyroidism, bilateral lower extremity swelling due to venous stasis, Osteoarthritis, Chronic pain syndrome was initially admitted in [facility] because of bilateral leg ulcers that are infected. He is now transferred to [facility] for continued medical therapy and physical rehab. Infectious Diseases consult is requested to continue his antibiotic therapy. Currently he patient is comfortable, a little less pain in his legs, no fever or chills, no nausea or vomiting, no chest pain , no SOB, no headache or dizziness, no abdominal pain, no diarrhea, no dysuria. Review of Systems - Review of Systems All systems: reviewed and no additional remarkable complaints except (as per HPI ) Past Patient History - Infectious Disease Hx of Infectious Diseases: None - Tetanus Immunizations Tetanus Immunization: Unknown - Past Medical History & Family History Past Medical History?: Yes - Past Social History Smoking Status: Never Smoked - CARDIAC Hx Congestive Heart Failure: Yes Hx Hypertension: Yes - PULMONARY Hx Chronic Obstructive Pulmonary Disease (COPD): Yes - NEUROLOGICAL Hx Neurological Disorder: No - HEENT Hx HEENT Problems: No - RENAL Hx Chronic Kidney Disease: Yes (required HD in 2016 briefly) - ENDOCRINE/METABOLIC Hx Diabetes Mellitus Type 2: Yes Hx Hypothyroidism: Yes - HEMATOLOGICAL/ONCOLOGICAL Hx Blood Disorders: No - INTEGUMENTARY Hx Dermatological Problems: Yes Hx Cellulitis: Yes (BLE) Other/Comment: both leggs discolored - MUSCULOSKELETAL/RHEUMATOLOGICAL Hx Falls: No - GASTROINTESTINAL Hx Gastrointestinal Disorders: (reflux obese) - GENITOURINARY/GYNECOLOGICAL Hx Reproductive Disorders: No - PSYCHIATRIC Hx Substance Use: No - SURGICAL HISTORY Hx Orthopedic Surgery: Yes (bilateral knee replacement) Other/Comment: total left knee - 1998. right ankle screws - 1987. right hip jason - 1982 - ANESTHESIA Hx Anesthesia: Yes Hx Anesthesia Reactions: No Hx Malignant Hyperthermia: No Meds Allergies/Adverse Reactions: Allergies Allergy/AdvReac Type Severity Reaction Status Date / Time No Known Allergies Allergy Verified 06/20/17 09:36 - Medications Medications: Current Medications Arformoterol Tartrate (Brovana) 15 mcg IH [id number] [facility] PRN Reason: Protocol Budesonide (Pulmicort Respules) 0.5 mg IH [id number] [facility] PRN Reason: Protocol Docusate Sodium (Colace) 100 mg PO BID [facility] PRN Reason: Protocol Furosemide (Lasix) 80 mg PO DAILY [facility] PRN Reason: Protocol Gabapentin (Neurontin) 300 mg PO TID [facility] PRN Reason: Protocol Hydralazine HCl (Apresoline) 25 mg PO Q8 [facility] PRN Reason: Protocol Last Admin: 06/24/17 22:05 Dose: Not Given Meropenem 1g/NS 100mL IVPB (Meropenem 1g/Ns 100ml Ivpb) 1 gm in 100 mls @ 100 mls/hr IVPB Q8 [facility] PRN Reason: Protocol Stop: 06/30/17 22:01 Last Admin: 06/24/17 22:05 Dose: 100 mls/hr Insulin Human Regular (Humulin R Med) 0 units SC ACHS [facility] PRN Reason: Protocol Last Admin: 06/24/17 22:07 Dose: Not Given Lactobacillus Acidophilus (Bacid Acidophilus) 1 cap PO BID [facility] PRN Reason: Protocol Levothyroxine Sodium (Synthroid) 75 mcg PO 0600 [facility] Losartan Potassium (Cozaar) 100 mg PO DAILY [facility] PRN Reason: Protocol Metoprolol Tartrate (Lopressor) 25 mg PO BID [facility] PRN Reason: Protocol Montelukast Sodium (Singulair) 10 mg PO DAILY [facility] PRN Reason: Protocol Oxycodone HCl (Oxycontin Extended Release Tab) 80 mg PO Q8H [facility] PRN Reason: Protocol Last Admin: 06/24/17 22:05 Dose: 80 mg Oxycodone/Acetaminophen (Percocet 10/325 Mg Tab) 1 tab PO Q6H PRN; Protocol PRN Reason: Pain, moderate (4-7) Last Admin: 06/24/17 22:22 Dose: 1 tab Pantoprazole Sodium (Protonix Ec Tab) 40 mg PO 0600 [facility] Potassium Chloride (K-Dur 20 Meq Er Tab) 20 meq PO DAILY [facility] PRN Reason: Protocol Trazodone HCl (Desyrel) 50 mg PO HS [facility] PRN Reason: Protocol Last Admin: 06/24/17 22:06 Dose: 50 mg Warfarin Sodium (Coumadin) 1 mg PO 1800 [facility] PRN Reason: Protocol Warfarin Sodium (Coumadin) 10 mg PO 1800 [facility] PRN Reason: Protocol Physical Exam - Constitutional Appears: Non-toxic, No Acute Distress - Head Exam Head Exam: NORMAL INSPECTION - ENT Exam ENT Exam: Mucous Membranes Moist - Neck Exam Neck exam: Negative for: Lymphadenopathy, Meningismus - Respiratory Exam Respiratory Exam: Decreased Breath Sounds - Cardiovascular Exam Cardiovascular Exam: +S1, +S2 - GI/Abdominal Exam GI & Abdominal Exam: Soft. absent: Tenderness - Extremities Exam Additional comments: both legs with dressings in place Results - Vital Signs Recent Vital Signs: Last Vital Signs Temp 98 F 06/24/17 22:14 Pulse 67 06/24/17 22:14 Resp 18 06/24/17 22:14 BP 108/67 06/24/17 22:14 Pulse Ox - Labs Result Diagrams: 06/25/17 09:45 06/25/17 09:45 Assessment & Plan - Assessment and Plan (Free Text) Plan: Assessment skin and skin structure infection with bilateral leg infected ulcers in a patient with recurrent leg infections and venous stasis, now growing multidrug resistant Pseudomonas and ESBL E. coli; during previous admission he also grew MSSA but not this time S/P wound vacuum placement for upper thigh wounds history of Skin and skin structure infection of the left lower extremity with Pseudomonas, Enterococcus and MRSA in a patient with recurrent left leg infection Morbid obesity with BMI of 43 DM HTN COPD hyopthyroidism bilateral lower extremity swelling due to venous stasis Osteoarthritis Chronic pain syndrome Plan continue Merrem (day 4) - called up microlab and was informed that the Pseudomonas in the wound is resistant to Merrem - unable to use Cipro because the patient is on Coumadin which may increase risk of bleeding if given together - will start Tobramycin bone scan done yesterday showed possible uptake in the distal right leg - will discuss with Podiatry the significance of this since there is no specific adjacent ulcer to this site will continue to monitor clinically
[2017-06-25] MEDS: oxyCODONE 15 mg Immediate Release Tab PO PRN (23:41)
[2017-06-26] MEDS: Pantoprazole 40 mg EC Tab PO SCH (05:08)
[2017-06-26] MEDS: Levothyroxine 75 MCG TAB PO SCH (05:09)
[2017-06-26] MEDS: oxyCODONE 80 mg ER Tab (oxyCONTIN) PO SCH ×3 (05:09→21:38)
[2017-06-26] MEDS: Meropenem 1g/NS 100mL IVPB 1 GM/100 ML PIGGYBACK IVPB SCH ×3 (05:09→22:00)
[2017-06-26] MEDS: oxyCODONE 15 mg Immediate Release Tab PO PRN ×3 (05:44→17:56)
--- NOTE | 2017-06-26 06:14 | CP.PCM.PN ---
Subjective - Date & Time of Evaluation Date of Evaluation: 06/26/17 Time of Evaluation: 06:11 - Subjective Subjective: S: It was requested to insert a heparin lock. He has no complaints now. Pertinent medical record was reviewed. O: Last Vital Signs 3 Temp 97.8 F 06/25/17 16:27 Pulse 65 06/25/17 16:27 Resp 18 06/25/17 16:27 BP 94/60 L 06/25/17 16:27 Pulse Ox 96 06/25/17 16:27 Awake, alert,obese person no in distress. LUNGS:Normal breathing pattern. A: Poor venous access. Encounter for intravenous line placement. P:# 24 angiocath was inserted in right proximal forearm on volar surface. Objective - Vital Signs/Intake and Output Vital Signs (last 24 hours): Temp Pulse Resp BP Pulse Ox 97.8 F 65 18 94/60 L 96 06/25/17 16:27 06/25/17 16:27 06/25/17 16:27 06/25/17 16:27 06/25/17 16:27 Intake and Output: 06/25/17 06/26/17 18:59 06:59 Intake Total 800 Output Total 600 Balance 200 - Medications Medications: Current Medications Arformoterol Tartrate (Brovana) 15 mcg IH [id number] SANDRINE PRN Reason: Protocol Last Admin: 06/25/17 20:18 Dose: Not Given Budesonide (Pulmicort Respules) 0.5 mg IH [id number] [facility]DRINE PRN Reason: Protocol Last Admin: 06/25/17 20:18 Dose: Not Given Docusate Sodium (Colace) 100 mg PO BID SANDRINE PRN Reason: Protocol Last Admin: 06/25/17 17:45 Dose: 100 mg Furosemide (Lasix) 80 mg PO DAILY [facility]INE PRN Reason: Protocol Last Admin: 06/25/17 10:32 Dose: Not Given Gabapentin (Neurontin) 300 mg PO QID [facility]INE PRN Reason: Protocol Last Admin: 06/25/17 21:18 Dose: 300 mg Hydralazine HCl (Apresoline) 25 mg PO Q8 [facility]DRINE PRN Reason: Protocol Last Admin: 06/25/17 05:54 Dose: Not Given Meropenem 1g/NS 100mL IVPB (Meropenem 1g/Ns 100ml Ivpb) 1 gm in 100 mls @ 100 mls/hr IVPB Q8 SANDRINE PRN Reason: Protocol Stop: 06/30/17 22:01 Last Admin: 06/26/17 05:09 Dose: 100 mls/hr Tobramycin Sulfate 300 mg/ (Sodium Chloride) 107.5 mls @ 100 mls/hr IV DAILY [facility] Insulin Human Regular (Humulin R Med) 0 units SC ACHS SANDRINE PRN Reason: Protocol Last Admin: 06/25/17 21:36 Dose: Not Given Lactobacillus Acidophilus (Bacid Acidophilus) 1 cap PO BID SANDRINE PRN Reason: Protocol Last Admin: 06/25/17 17:45 Dose: 1 cap Levothyroxine Sodium (Synthroid) 75 mcg PO 0600 SANDRINE Last Admin: 06/26/17 05:09 Dose: 75 mcg Losartan Potassium (Cozaar) 100 mg PO DAILY [facility]INE PRN Reason: Protocol Last Admin: 06/25/17 10:22 Dose: 100 mg Metoprolol Tartrate (Lopressor) 25 mg PO BID [facility]DRINE PRN Reason: Protocol Last Admin: 06/25/17 10:32 Dose: Not Given Montelukast Sodium (Singulair) 10 mg PO DAILY [facility]DRINE PRN Reason: Protocol Last Admin: 06/25/17 10:24 Dose: 10 mg Nystatin (Nystop Topical Powder) 0 gm TOP BID [facility]DRINE PRN Reason: Protocol Stop: 07/02/17 10:00 Oxycodone HCl (Oxycontin Extended Release Tab) 80 mg PO Q8H SANDRINE PRN Reason: Protocol Last Admin: 06/26/17 05:09 Dose: 80 mg Oxycodone HCl (Oxycodone Immediate Release Tab) 15 mg PO Q6H PRN; Protocol PRN Reason: Pain, severe (8-10) Last Admin: 06/26/17 05:44 Dose: 15 mg Pantoprazole Sodium (Protonix Ec Tab) 40 mg PO 0600 [facility]INE Last Admin: 06/26/17 05:08 Dose: 40 mg Potassium Chloride (K-Dur 20 Meq Er Tab) 20 meq PO DAILY [facility]INE PRN Reason: Protocol Last Admin: 06/25/17 10:22 Dose: 20 meq Trazodone HCl (Desyrel) 50 mg PO HS SANDRINE PRN Reason: Protocol Last Admin: 06/25/17 21:17 Dose: 50 mg Warfarin Sodium (Coumadin) 1 mg PO 1800 [facility]DRINE PRN Reason: Protocol Last Admin: 06/25/17 18:25 Dose: 1 mg Warfarin Sodium (Coumadin) 10 mg PO 1800 [facility]INE PRN Reason: Protocol Last Admin: 06/25/17 17:46 Dose: 10 mg - Labs Labs: 06/25/17 09:45 06/25/17 09:45 PT 23.3 Seconds (9.9-11.8) H 06/25/17 09:45 INR 2.16 (0.93-1.08) H 06/25/17 09:45
[2017-06-26] MEDS: Insulin Reg-MEDIUM-Coverage SC SCH ×4 (06:33→21:43)
[2017-06-26 06:45] LABS: BASO # 0.05 K/mm3 (0.0-2.0); BASO % 0.8 % (0.0-3.0); EOS # 0.5 (0.0-0.7); EOS % 7.7 % (1.5-5.0); GRAN # 3.52 (1.4-6.5); GRAN % 54.9 % (50.0-68.0); LYMPH # 1.9 (1.2-3.4); LYMPH % 29.4 % (22.0-35.0); MEAN CELL VOLUME 86.9 fl (80.0-105.0); MEAN CORPUSCULAR HEMOGLOBIN 27.9 pg (25.0-35.0); MEAN CORPUSCULAR HGB CONC 32.2 g/dl (31.0-37.0); MEAN PLATELET VOLUME 12.1 fl (7.0-11.0); MONO # 0.5 (0.1-0.6); MONO % 7.2 % (1.0-6.0); WHITE BLOOD COUNT 6.4 10^3/ul (4.5-11.0)
[2017-06-26 07:05] LABS: BLOOD UREA NITROGEN 42 mg/dL (7-21); CALCIUM 9.5 mg/dL (8.4-10.5); CARBON DIOXIDE 31 mmol/L (21-33); CHLORIDE 97 mmol/L (95-110); GFR AFRICAN-AMERICAN > 60; GLUCOSE,RANDOM 103 mg/dL (70-110); POTASSIUM 4.7 mmol/L (3.6-5.0); SODIUM 136 mmol/L (132-148)
[2017-06-26] MEDS: Budesonide 0.5 mg/2 ml Inhal Susp UD IH SCH ×2 (07:29→19:47)
[2017-06-26] MEDS: Arformoterol 15 mcg/2 ml Inh Sol IH SCH ×2 (07:29→19:47)
[2017-06-26] MEDS ORDERED: Nystatin 100,000 Units/gm Topical Pow(15 gm) TOP SCH (10:00)
[2017-06-26] MEDS: Lactobacillus Acidophilus 500 MU Cap PO SCH ×2 (10:12→17:36)
[2017-06-26] MEDS: Potassium Chloride 20 mEq ER Tab PO SCH (10:13)
[2017-06-26] MEDS: Nystatin 100,000 Units/gm Topical Pow(15 gm) TOP SCH ×2 (10:17→17:42)
--- NOTE | 2017-06-26 11:30 | CP.PCM.PN ---
<Dipti Loyd - Last Filed: 06/26/17 11:29> Subjective - Date & Time of Evaluation Date of Evaluation: 06/26/17 Time of Evaluation: 11:29 - Subjective Subjective: Podiatry Progress Note 57 year old male patient well known to podiatry (non-compliant in terms of clinical follow ups and consistent woundcare) was seen at bedside this morning concerning bilateral venous stasis ulcerations. AAO x3. Patient admits to mild pain to his right leg at the site of ulceration. Patient denies any acute events overnight. Patient denies N/V/F/D/C/SOB. No other pedal complaints at this time. Objective - Vital Signs/Intake and Output Vital Signs (last 24 hours): Temp Pulse Resp BP Pulse Ox 97.8 F 65 20 119/61 99 06/26/17 10:27 06/26/17 10:27 06/26/17 10:27 06/26/17 10:27 06/26/17 10:27 - Medications Medications: Current Medications Arformoterol Tartrate (Brovana) 15 mcg IH [id number] SANDRINE PRN Reason: Protocol Last Admin: 06/26/17 07:29 Dose: Not Given Budesonide (Pulmicort Respules) 0.5 mg IH [id number] SANDRINE PRN Reason: Protocol Last Admin: 06/26/17 07:29 Dose: Not Given Docusate Sodium (Colace) 100 mg PO BID [facility]DRINE PRN Reason: Protocol Last Admin: 06/26/17 10:12 Dose: 100 mg Furosemide (Lasix) 80 mg PO DAILY [facility] PRN Reason: Protocol Last Admin: 06/26/17 10:15 Dose: 80 mg Gabapentin (Neurontin) 300 mg PO QID [facility]INE PRN Reason: Protocol Last Admin: 06/26/17 10:16 Dose: 300 mg Hydralazine HCl (Apresoline) 25 mg PO Q8 SANDRINE PRN Reason: Protocol Last Admin: 06/25/17 05:54 Dose: Not Given Meropenem 1g/NS 100mL IVPB (Meropenem 1g/Ns 100ml Ivpb) 1 gm in 100 mls @ 100 mls/hr IVPB Q8 SANDRINE PRN Reason: Protocol Stop: 06/30/17 22:01 Last Admin: 06/26/17 05:09 Dose: 100 mls/hr Tobramycin Sulfate 300 mg/ (Sodium Chloride) 107.5 mls @ 100 mls/hr IV DAILY [facility]INE Last Admin: 06/26/17 10:20 Dose: 100 mls/hr Insulin Human Regular (Humulin R Med) 0 units SC ACHS SANDRINE PRN Reason: Protocol Last Admin: 06/26/17 06:33 Dose: Not Given Lactobacillus Acidophilus (Bacid Acidophilus) 1 cap PO BID [facility]DRINE PRN Reason: Protocol Last Admin: 06/26/17 10:12 Dose: 1 cap Levothyroxine Sodium (Synthroid) 75 mcg PO 0600 SANDRINE Last Admin: 06/26/17 05:09 Dose: 75 mcg Losartan Potassium (Cozaar) 100 mg PO DAILY [facility] PRN Reason: Protocol Last Admin: 06/25/17 10:22 Dose: 100 mg Metoprolol Tartrate (Lopressor) 25 mg PO BID [facility]INE PRN Reason: Protocol Last Admin: 06/25/17 10:32 Dose: Not Given Montelukast Sodium (Singulair) 10 mg PO DAILY [facility]INE PRN Reason: Protocol Last Admin: 06/26/17 10:19 Dose: 10 mg Nystatin (Nystop Topical Powder) 0 gm TOP BID SANDRINE PRN Reason: Protocol Stop: 07/02/17 10:00 Last Admin: 06/26/17 10:17 Dose: 1 applic Oxycodone HCl (Oxycontin Extended Release Tab) 80 mg PO Q8H SANDRINE PRN Reason: Protocol Last Admin: 06/26/17 05:09 Dose: 80 mg Oxycodone HCl (Oxycodone Immediate Release Tab) 15 mg PO Q6H PRN; Protocol PRN Reason: Pain, severe (8-10) Last Admin: 06/26/17 05:44 Dose: 15 mg Pantoprazole Sodium (Protonix Ec Tab) 40 mg PO 0600 SANDRINE Last Admin: 06/26/17 05:08 Dose: 40 mg Potassium Chloride (K-Dur 20 Meq Er Tab) 20 meq PO DAILY [facility]INE PRN Reason: Protocol Last Admin: 06/26/17 10:13 Dose: 20 meq Trazodone HCl (Desyrel) 50 mg PO HS SANDRINE PRN Reason: Protocol Last Admin: 06/25/17 21:17 Dose: 50 mg Warfarin Sodium (Coumadin) 1 mg PO 1800 SANDRINE PRN Reason: Protocol Last Admin: 06/25/17 18:25 Dose: 1 mg Warfarin Sodium (Coumadin) 10 mg PO 1800 SANDRINE PRN Reason: Protocol Last Admin: 06/25/17 17:46 Dose: 10 mg - Labs Labs: 06/26/17 06:30 06/26/17 06:30 PT 23.3 Seconds (9.9-11.8) H 06/25/17 09:45 INR 2.16 (0.93-1.08) H 06/25/17 09:45 - Constitutional Appears: Well, Non-toxic, No Acute Distress - Extremities Exam Additional comments: Bilateral lower extrmeity exam Derm: +1 pitting edema to legs bilateral, localized erythema to mid-calf bilateral. Cellulitis localized to superficial ulcerations along: Left: Open wound to Anterior and lateral mid-leg region with active serous drainage absent undermining on a granular fibrotic base with jamila-wound macerations. No PTB Right: Open wounds to distal 1/3 of leg , superficial open lesions on the posterior aspect of left leg, medial aspect of right leg- granular base, no purulence, Moderate serous drainage, no active bleeding, no undermining, no tracking, no probe to bone. No open wound noted to distal aspect of right foot. Vasc: Non-palpable pedal pulses due to edema b/l, TG warm to warm, CFT < 3 sec to all digits, +1 pitting edema Neuro: grossly diminished MUSC: pain on palpation of posterior and medial legs b/l - Neurological Exam Neurological Exam: Alert, Awake, Oriented x3 - Psychiatric Exam Psychiatric exam: Normal Affect, Normal Mood Assessment and Plan - Assessment and Plan (Free Text) Assessment: 57 y/o male presents with cellulitis and bilateral superficial venous stasis ulcerations Plan: Patient evaluated and seen at bedside Labs and vitals reviewed; afebrile Continue IV abx per ID Cleansed legs with saline. Bilateral legs dressed with Xeroform,4x4, ABD, kerlix WCX Left leg: E.Coli, Pseudomonas Bone scan reveals signs suspicious for OM to distal RIGHT foot, however no open wound or clinical signs of infection is noted to RIGHT distal foot Podiatry will continue to monitor while patient remains in house <Parish Zavaleta - Last Filed: 06/27/17 08:05> Objective - Vital Signs/Intake and Output Vital Signs (last 24 hours): Temp Pulse Resp BP Pulse Ox 98 F 66 18 110/66 98 06/26/17 16:29 06/27/17 05:35 06/26/17 16:29 06/27/17 05:35 06/26/17 16:29 Intake and Output: 06/27/17 06/27/17 06:59 18:59 Intake Total 720 Output Total 900 Balance -180 - Medications Medications: Current Medications Arformoterol Tartrate (Brovana) 15 mcg IH [id number] SANDRINE PRN Reason: Protocol Last Admin: 06/27/17 07:03 Dose: Not Given Budesonide (Pulmicort Respules) 0.5 mg IH [id number] SANDRINE PRN Reason: Protocol Last Admin: 06/27/17 07:02 Dose: Not Given Docusate Sodium (Colace) 100 mg PO BID [facility]DRINE PRN Reason: Protocol Last Admin: 06/26/17 17:37 Dose: 100 mg Furosemide (Lasix) 80 mg PO DAILY [facility]DRINE PRN Reason: Protocol Last Admin: 06/26/17 10:15 Dose: 80 mg Gabapentin (Neurontin) 300 mg PO QID [facility]INE PRN Reason: Protocol Last Admin: 06/26/17 21:42 Dose: 300 mg Hydralazine HCl (Apresoline) 25 mg PO Q8 SANDRINE PRN Reason: Protocol Last Admin: 06/27/17 05:35 Dose: 25 mg Meropenem 1g/NS 100mL IVPB (Meropenem 1g/Ns 100ml Ivpb) 1 gm in 100 mls @ 100 mls/hr IVPB Q8 SANDRINE PRN Reason: Protocol Stop: 06/30/17 22:01 Last Admin: 06/27/17 05:50 Dose: 100 mls/hr Tobramycin Sulfate 300 mg/ (Sodium Chloride) 107.5 mls @ 100 mls/hr IV DAILY [facility]INE Last Admin: 06/26/17 10:20 Dose: 100 mls/hr Insulin Human Regular (Humulin R Med) 0 units SC ACHS SANDRINE PRN Reason: Protocol Last Admin: 06/27/17 07:55 Dose: Not Given Lactobacillus Acidophilus (Bacid Acidophilus) 1 cap PO BID SANDRINE PRN Reason: Protocol Last Admin: 06/26/17 17:36 Dose: 1 cap Levothyroxine Sodium (Synthroid) 75 mcg PO 0600 SANDRINE Last Admin: 06/27/17 05:36 Dose: 75 mcg Losartan Potassium (Cozaar) 50 mg PO DAILY [facility]INE Metoprolol Tartrate (Lopressor) 25 mg PO BID SANDRINE PRN Reason: Protocol Last Admin: 06/25/17 10:32 Dose: Not Given Montelukast Sodium (Singulair) 10 mg PO DAILY [facility]DRINE PRN Reason: Protocol Last Admin: 06/26/17 10:19 Dose: 10 mg Nystatin (Nystop Topical Powder) 0 gm TOP BID SANDRINE PRN Reason: Protocol Stop: 07/02/17 10:00 Last Admin: 06/26/17 17:42 Dose: 1 applic Oxycodone HCl (Oxycontin Extended Release Tab) 80 mg PO Q8H SANDRINE PRN Reason: Protocol Last Admin: 06/27/17 05:34 Dose: 80 mg Oxycodone HCl (Oxycodone Immediate Release Tab) 15 mg PO Q6H PRN; Protocol PRN Reason: Pain, severe (8-10) Last Admin: 06/27/17 02:01 Dose: 15 mg Pantoprazole Sodium (Protonix Ec Tab) 40 mg PO 0600 COUNTS INCLUDE 234 BEDS AT THE [facility] Last Admin: 06/27/17 05:36 Dose: 40 mg Potassium Chloride (K-Dur 20 Meq Er Tab) 20 meq PO DAILY SANDRINE PRN Reason: Protocol Last Admin: 06/26/17 10:13 Dose: 20 meq Trazodone HCl (Desyrel) 50 mg PO HS SANDRINE PRN Reason: Protocol Last Admin: 06/26/17 21:38 Dose: 50 mg Warfarin Sodium (Coumadin) 1 mg PO 1800 SANDRINE PRN Reason: Protocol Last Admin: 06/26/17 17:38 Dose: 1 mg Warfarin Sodium (Coumadin) 10 mg PO 1800 COUNTS INCLUDE 234 BEDS AT THE [facility] PRN Reason: Protocol Last Admin: 06/26/17 17:38 Dose: 10 mg - Labs Labs: 06/26/17 06:30 06/26/17 06:30 PT 23.3 Seconds (9.9-11.8) H 06/25/17 09:45 INR 2.16 (0.93-1.08) H 06/25/17 09:45 Attending/Attestation - Attestation I have personally seen and examined this patient.: Yes I have fully participated in the care of the patient.: Yes I have reviewed all pertinent clinical information, including history, physical exam and plan: Yes
--- NOTE | 2017-06-26 12:03 | PN ---
DATE: 06/26/2017 SUBJECTIVE: The patient seen in bed, in no acute distress. Nontoxic. PHYSICAL EXAMINATION: VITAL SIGNS: Temperature is 98, blood pressure is 94/60, and respiratory rate of 18. HEENT: Unremarkable. NECK: Supple. LUNGS: Decreased breath sounds. HEART: Normal S1 and S2. ABDOMEN: Soft. Nontender. LABORATORY DATA: Reveals a white count of 6.4, hemoglobin of 11, and platelets of 187. BUN of 42 and creatinine of 1.4. Microbiology is noted. ASSESSMENT AND PLAN: This is a 57-year-old male with skin and skin soft tissue infection with bilateral leg infected ulcers and recurrent leg infection with venous stasis and growing multi-drug resistant Pseudomonas and extended-spectrum beta-lactamases, Escherichia coli. During previous admissions, he had methicillin-resistant Staphylococcus aureus and patient with morbid obesity with BMI of over 50, and hypertension, diabetes, chronic obstructive lung disease, hypothyroidism, bilateral lower extremity swelling due to venous stasis, chronic pain syndrome, osteoarthritis, day #5 of meropenem. Review of the cultures reveals the patient had Escherichia coli and Pseudomonas aeruginosa with extended-spectrum beta-lactamases, Escherichia coli, and Pseudomonas sensitive to tobramycin. Review of the orders reveals patient to be on meropenem and tobramycin. We will follow with you. Ralph Blanco MD
[2017-06-27] MEDS: oxyCODONE 15 mg Immediate Release Tab PO PRN ×4 (02:01→21:39)
[2017-06-27] MEDS: oxyCODONE 80 mg ER Tab (oxyCONTIN) PO SCH ×3 (05:34→17:55)
[2017-06-27] MEDS: Levothyroxine 75 MCG TAB PO SCH (05:36)
[2017-06-27] MEDS: Pantoprazole 40 mg EC Tab PO SCH (05:36)
[2017-06-27] MEDS: Meropenem 1g/NS 100mL IVPB 1 GM/100 ML PIGGYBACK IVPB SCH ×3 (05:50→21:40)
[2017-06-27] MEDS: Budesonide 0.5 mg/2 ml Inhal Susp UD IH SCH ×2 (07:02→20:56)
[2017-06-27] MEDS: Arformoterol 15 mcg/2 ml Inh Sol IH SCH ×2 (07:03→20:56)
[2017-06-27] MEDS: Insulin Reg-MEDIUM-Coverage SC SCH ×4 (07:55→22:35)
[2017-06-27] MEDS: Potassium Chloride 20 mEq ER Tab PO SCH (09:09)
[2017-06-27] MEDS: Lactobacillus Acidophilus 500 MU Cap PO SCH ×2 (09:10→17:54)
[2017-06-27 10:45] LABS: BASO # 0.04 K/mm3 (0.0-2.0); BASO % 0.7 % (0.0-3.0); EOS # 0.4 (0.0-0.7); EOS % 6.5 % (1.5-5.0); GRAN # 3.62 (1.4-6.5); GRAN % 63.7 % (50.0-68.0); HEMATOCRIT 36.6 % (42.0-52.0); LYMPH # 1.2 (1.2-3.4); LYMPH % 21.4 % (22.0-35.0); MEAN CELL VOLUME 86.3 fl (80.0-105.0); MEAN CORPUSCULAR HEMOGLOBIN 28.1 pg (25.0-35.0); MEAN CORPUSCULAR HGB CONC 32.5 g/dl (31.0-37.0); MEAN PLATELET VOLUME 11.2 fl (7.0-11.0); MONO # 0.4 (0.1-0.6); MONO % 7.7 % (1.0-6.0); RED CELL DISTRIBUTION WIDTH 13.8 % (11.5-14.5); WHITE BLOOD COUNT 5.7 10^3/ul (4.5-11.0)
[2017-06-27 10:55] LABS: INR 2.75 (0.93-1.08)
--- NOTE | 2017-06-27 11:07 | CP.PCM.PN ---
<Zayra Lomax - Last Filed: 06/27/17 11:03> Subjective - Date & Time of Evaluation Date of Evaluation: 06/27/17 Time of Evaluation: 11:03 - Subjective Subjective: Patient has been seen and examined. No overnight events reported. Patient has no complaints at this time except b/l LE pain increased because his leg was just wrapped. Denies fever, SOB, CP, Abdominal Pain, N/V/D, constipation. Objective - Vital Signs/Intake and Output Vital Signs (last 24 hours): Temp Pulse Resp BP Pulse Ox 98 F 74 18 114/74 98 06/26/17 16:29 06/27/17 09:09 06/26/17 16:29 06/27/17 09:09 06/26/17 16:29 Intake and Output: 06/27/17 06/27/17 06:59 18:59 Intake Total 720 Output Total 900 600 Balance -180 -600 - Medications Medications: Current Medications Arformoterol Tartrate (Brovana) 15 mcg IH [id number] SANDRINE PRN Reason: Protocol Last Admin: 06/27/17 07:03 Dose: Not Given Budesonide (Pulmicort Respules) 0.5 mg IH [id number] SANDRINE PRN Reason: Protocol Last Admin: 06/27/17 07:02 Dose: Not Given Docusate Sodium (Colace) 100 mg PO BID SANDRINE PRN Reason: Protocol Last Admin: 06/27/17 09:10 Dose: 100 mg Furosemide (Lasix) 80 mg PO DAILY [facility]DRINE PRN Reason: Protocol Last Admin: 06/27/17 09:08 Dose: 80 mg Gabapentin (Neurontin) 300 mg PO QID [facility]DRINE PRN Reason: Protocol Last Admin: 06/27/17 09:10 Dose: 300 mg Hydralazine HCl (Apresoline) 25 mg PO Q8 SANDRINE PRN Reason: Protocol Last Admin: 06/27/17 05:35 Dose: 25 mg Meropenem 1g/NS 100mL IVPB (Meropenem 1g/Ns 100ml Ivpb) 1 gm in 100 mls @ 100 mls/hr IVPB Q8 SANDRINE PRN Reason: Protocol Stop: 06/30/17 22:01 Last Admin: 06/27/17 05:50 Dose: 100 mls/hr Tobramycin Sulfate 300 mg/ (Sodium Chloride) 107.5 mls @ 100 mls/hr IV DAILY SANDRINE Last Admin: 06/27/17 09:56 Dose: 100 mls/hr Insulin Human Regular (Humulin R Med) 0 units SC ACHS SANDRINE PRN Reason: Protocol Last Admin: 06/27/17 07:55 Dose: Not Given Lactobacillus Acidophilus (Bacid Acidophilus) 1 cap PO BID SANDRINE PRN Reason: Protocol Last Admin: 06/27/17 09:10 Dose: 1 cap Levothyroxine Sodium (Synthroid) 75 mcg PO 0600 SANDRINE Last Admin: 06/27/17 05:36 Dose: 75 mcg Losartan Potassium (Cozaar) 50 mg PO DAILY [facility]DRINE Last Admin: 06/27/17 09:09 Dose: 50 mg Metoprolol Tartrate (Lopressor) 25 mg PO BID SANDRINE PRN Reason: Protocol Last Admin: 06/27/17 09:08 Dose: 25 mg Montelukast Sodium (Singulair) 10 mg PO DAILY SANDRINE PRN Reason: Protocol Last Admin: 06/27/17 09:10 Dose: 10 mg Nystatin (Nystop Topical Powder) 0 gm TOP BID SANDRINE PRN Reason: Protocol Stop: 07/02/17 10:00 Last Admin: 06/26/17 17:42 Dose: 1 applic Oxycodone HCl (Oxycontin Extended Release Tab) 80 mg PO Q8H SANDRINE PRN Reason: Protocol Last Admin: 06/27/17 05:34 Dose: 80 mg Oxycodone HCl (Oxycodone Immediate Release Tab) 15 mg PO Q6H PRN; Protocol PRN Reason: Pain, severe (8-10) Last Admin: 06/27/17 09:11 Dose: 15 mg Pantoprazole Sodium (Protonix Ec Tab) 40 mg PO 0600 SANDRINE Last Admin: 06/27/17 05:36 Dose: 40 mg Potassium Chloride (K-Dur 20 Meq Er Tab) 20 meq PO DAILY SANDRINE PRN Reason: Protocol Last Admin: 06/27/17 09:09 Dose: 20 meq Trazodone HCl (Desyrel) 50 mg PO HS SANDRINE PRN Reason: Protocol Last Admin: 06/26/17 21:38 Dose: 50 mg Warfarin Sodium (Coumadin) 1 mg PO 1800 SANDRINE PRN Reason: Protocol Last Admin: 06/26/17 17:38 Dose: 1 mg Warfarin Sodium (Coumadin) 10 mg PO 1800 SANDRINE PRN Reason: Protocol Last Admin: 06/26/17 17:38 Dose: 10 mg - Labs Labs: 06/27/17 10:30 06/26/17 06:30 PT 29.7 Seconds (9.9-11.8) H 06/27/17 10:30 INR 2.75 (0.93-1.08) H 06/27/17 10:30 - Constitutional Appears: Non-toxic, No Acute Distress - Head Exam Head Exam: ATRAUMATIC, NORMAL INSPECTION, NORMOCEPHALIC - Eye Exam Eye Exam: EOMI, Normal appearance - Respiratory Exam Respiratory Exam: Clear to Ausculation Bilateral, NORMAL BREATHING PATTERN. absent: Wheezes - Cardiovascular Exam Cardiovascular Exam: +S1, +S2. absent: JVD - GI/Abdominal Exam GI & Abdominal Exam: Soft, Normal Bowel Sounds. absent: Tenderness - Extremities Exam Additional comments: b/l LE stasis Ulcers. LLE cellultis (slowly improving). Currently Wrapped. - Neurological Exam Neurological Exam: Alert, Awake, Oriented x3 - Psychiatric Exam Psychiatric exam: Normal Affect, Normal Mood Assessment and Plan - Assessment and Plan (Free Text) Assessment: 57 M w/ PMHx specifically significant for morbid obesity, recurrent ulcers on b/ l LE and buttocks, and CHF. Patient was treated at [facility] for b/l LE ulcers and Left LE cellulits. Patient was admitted to continue treatment and for reconditioning. Plan: 1.) Pressure Ulcers: b/l buttocks, calves; L osei and LLE cellulitis - Podiatry Consult: Waqar. addie appreciated - ID Consult: Dr. Blanco. - Wound dressing changes daily - Wound care - Turn patient q 2h - ABx: Merrem day 7, Tobromycin Day 3 per ID. -Wound cultures showed Psuedomonas and E.Coli - Blood culture prelim negative x 3 - Bone scan shows possible Osteomyelitis. F/U with ID about length of AB coverage. - Hot compresses 2.) Hx/o HTN - Patient normotensive today. Will continue to hold Anti-Hypertensives - Losartan 100mg po daily (Held) - Lopressor 25mg po bid (Held) - Hydralazine 25mg po q8 (Held) 3.) Hx/o CHF - Lasix 80mg po Daily - K-dur 20mg po Daily - 4.) Hx/o Hypothyroidism - Synthroid 75mcg po daily 5.) Hx/o Chronic Pain - Oxycontin 80 q6h and Perc 10/325 q 6 - Trazodone 50mg po hs - Pain management consulted. 6.) Hx/o DM - RISS Medium - Accucheck ACHS 7.) Hx of COPD/Asthma - Brovana 15mch inh q12 - Pulmicort 0.5mg inh q12 - Singulair 10mg po qd 8.) Chronic DVT - Coumadin 11mg po daily - Monitor INR (2.75 today) GI ppx: protonix 40mg po daily DVT ppx: on Coumadin; SCDs c/i Diet: Heart Healthy Patient seen, reviewed, and discussed with Attending Zayra lomax PGY1 Dispo: Bone scan suspicious for Osteomyelitis. Will follow up with ID about plan for length of antibiotic treatment. <Lizzie AUGUSTIN,Siri - Last Filed: 06/27/17 15:47> Objective - Vital Signs/Intake and Output Vital Signs (last 24 hours): Temp Pulse Resp BP Pulse Ox 98 F 74 18 100/78 98 06/26/17 16:29 06/27/17 09:09 06/26/17 16:29 06/27/17 13:35 06/26/17 16:29 Intake and Output: 06/27/17 06/27/17 06:59 18:59 Intake Total 720 Output Total 900 600 Balance -180 -600 - Medications Medications: Current Medications Arformoterol Tartrate (Brovana) 15 mcg IH [id number] SANDRINE PRN Reason: Protocol Last Admin: 06/27/17 07:03 Dose: Not Given Budesonide (Pulmicort Respules) 0.5 mg IH [id number] SANDRINE PRN Reason: Protocol Last Admin: 06/27/17 07:02 Dose: Not Given Docusate Sodium (Colace) 100 mg PO BID SANDRINE PRN Reason: Protocol Last Admin: 06/27/17 09:10 Dose: 100 mg Furosemide (Lasix) 80 mg PO DAILY SANDRINE PRN Reason: Protocol Last Admin: 06/27/17 09:08 Dose: 80 mg Gabapentin (Neurontin) 300 mg PO QID SANDRINE PRN Reason: Protocol Last Admin: 06/27/17 13:33 Dose: 300 mg Hydralazine HCl (Apresoline) 25 mg PO Q8 SANDRINE PRN Reason: Protocol Last Admin: 06/27/17 13:35 Dose: Not Given Meropenem 1g/NS 100mL IVPB (Meropenem 1g/Ns 100ml Ivpb) 1 gm in 100 mls @ 100 mls/hr IVPB Q8 SANDRINE PRN Reason: Protocol Stop: 06/30/17 22:01 Last Admin: 06/27/17 13:34 Dose: 100 mls/hr Tobramycin Sulfate 300 mg/ (Sodium Chloride) 107.5 mls @ 100 mls/hr IV DAILY [facility] Last Admin: 06/27/17 09:56 Dose: 100 mls/hr Insulin Human Regular (Humulin R Med) 0 units SC ACHS SANDRINE PRN Reason: Protocol Last Admin: 06/27/17 11:32 Dose: Not Given Lactobacillus Acidophilus (Bacid Acidophilus) 1 cap PO BID SANDRINE PRN Reason: Protocol Last Admin: 06/27/17 09:10 Dose: 1 cap Levothyroxine Sodium (Synthroid) 75 mcg PO 0600 [facility] [place] Last Admin: 06/27/17 05:36 Dose: 75 mcg Losartan Potassium (Cozaar) 50 mg PO DAILY [facility] Last Admin: 06/27/17 09:09 Dose: 50 mg Metoprolol Tartrate (Lopressor) 25 mg PO BID SANDRINE PRN Reason: Protocol Last Admin: 06/27/17 09:08 Dose: 25 mg Montelukast Sodium (Singulair) 10 mg PO DAILY SANDRINE PRN Reason: Protocol Last Admin: 06/27/17 09:10 Dose: 10 mg Nystatin (Nystop Topical Powder) 0 gm TOP BID SANDRINE PRN Reason: Protocol Stop: 07/02/17 10:00 Last Admin: 06/27/17 11:33 Dose: 1 applic Oxycodone HCl (Oxycontin Extended Release Tab) 80 mg PO Q8H SANDRINE PRN Reason: Protocol Last Admin: 06/27/17 13:32 Dose: 80 mg Oxycodone HCl (Oxycodone Immediate Release Tab) 15 mg PO Q6H PRN; Protocol PRN Reason: Pain, severe (8-10) Last Admin: 06/27/17 14:57 Dose: 15 mg Pantoprazole Sodium (Protonix Ec Tab) 40 mg PO 0600 [facility] [place] Last Admin: 06/27/17 05:36 Dose: 40 mg Potassium Chloride (K-Dur 20 Meq Er Tab) 20 meq PO DAILY SANDRINE PRN Reason: Protocol Last Admin: 06/27/17 09:09 Dose: 20 meq Trazodone HCl (Desyrel) 50 mg PO HS SANDRINE PRN Reason: Protocol Last Admin: 06/26/17 21:38 Dose: 50 mg Warfarin Sodium (Coumadin) 1 mg PO 1800 SANDRINE PRN Reason: Protocol Last Admin: 06/26/17 17:38 Dose: 1 mg Warfarin Sodium (Coumadin) 10 mg PO 1800 SANDRINE PRN Reason: Protocol Last Admin: 06/26/17 17:38 Dose: 10 mg - Labs Labs: 06/27/17 10:30 06/26/17 06:30 PT 29.7 Seconds (9.9-11.8) H 06/27/17 10:30 INR 2.75 (0.93-1.08) H 06/27/17 10:30 Attending/Attestation - Attestation I have personally seen and examined this patient.: Yes I have fully participated in the care of the patient.: Yes I have reviewed all pertinent clinical information, including history, physical exam and plan: Yes Notes (Text): 06/27/17 15:46 Patient was seen and examined with medical assisting instructor. 57 year old male with past medical history of chronic LE ulcers, CHF, hypothyroidism, diabetes, DVT on Coumadin and chronic opiate dependency who presented with worsening bilateral lower extremity ulcerations and erythema. Wound cultures are growing ESBL and Pseudomonas auregonosa on Meropenem .Blood cultures are negative. Bone scan showed early osteo. CT scan of leg is ordered as bone scan has negative Predictive value only.Patient case was discussed with ID and Podiatry. Management plan was discussed in detail with patient Education was provided
[2017-06-27] MEDS: Nystatin 100,000 Units/gm Topical Pow(15 gm) TOP SCH ×2 (11:33→17:59)
--- NOTE | 2017-06-27 12:49 | PN ---
SUBJECTIVE: A 57-year-old male seen at bedside for continued evaluation and management of bilateral venous stasis ulcers. The patient has extreme pain in the left lower leg during dressing changes. There is noted to be copious amount of drainage emanating from his left leg wound. PHYSICAL EXAMINATION: VITAL SIGNS: Revealed temperature of 98, pulse rate of 66, blood pressure of 110/66 and respiratory rate of 18. LABORATORY FINDINGS: Reveled white count of 6.4, hemoglobin of 11.9, hematocrit of 37, and platelet count of 187. Most recent microbiology report reveals E. coli and pseudomonas growth from his left leg wounds. Previous bone scan taken on 06/24 reveals hyperemia at the distal right foot; however, there are open lesions noted at that area to suggest osteomyelitis. Finding is most likely secondary to cellulitis of the lower extremities. OBJECTIVE: There is +1 pitting edema to bilateral lower legs. There is noted to be increased erythema and calor, both lower legs, left being greater than the right. Left lower leg presented with numerous full-thickness venous stasis ulcerations to the anterior lateral as well as posterior medial regions of the lower leg. There is noted to be heavy serous drainage emanating from the wounds. There is no purulence. There is no malodor. There is no probe to tendon or bone. There is no clinical signs of abscess formation noted. Right lower leg presents with superficial open lesions on the posterior and anterior aspect of the lower leg. There is noted to be moderate serous drainage emanating from these wounds. There is no probing to bone. There is no purulence to suggest underlying abscess formation. The overall edema and erythema of both lower legs has decreased since admission. There is noted to nonpalpable pedal pulses bilaterally and sensation is grossly diminished bilaterally. ASSESSMENT: A 57-year-old male with venous stasis ulcerations and resolving cellulitis of both lower extremities. PLAN: The patient was examined. All wounds were cleansed with normal sterile saline. We will continue to apply Xeroform with light compression daily. Infectious disease note was read and appreciated. We will continue with IV antibiotics and re-culture tomorrow morning. The patient will be seen and followed daily. Parish Zavaleta DPM
--- NOTE | 2017-06-27 16:51 | CT ---
Indication: Rule out osteomyelitis CT of the left lower extremity without IV contrast Comparison: Left tibia fibula radiographs performed 04/07/16, three-phase bone scan performed 06/24/17 Technique: Axial noncontrast images of the left lower extremity were obtained. Sagittal coronal reformatted images were generated and reviewed. This CT exam was performed using 1 or more of the following dose reduction techniques: Automated exposure control, adjustment of the MAA and/or kV according to patient size, and/or use of iterative reconstruction technique on Findings: The patient has undergone knee arthroplasty. Resultant streak artifact. No acute displaced fracture. No dislocation. No significant joint effusion appreciated. Muscular atrophy. Dystrophic calcifications within the soft tissues above the knee, possibly related to calcific tendinitis. Soft tissue edema is noted at the level of the lateral ankle with more mild diffuse edema throughout the lower leg. Moderate to severe extensive atherosclerotic calcifications. Impression: Examination limited due to streak artifact from knee arthroplasty hardware. No acute displaced fracture or dislocation. No clear evidence to suggest acute osteomyelitis. Please note, MRI without and with IV contrast is most sensitive study for characterization of osteomyelitis below the implant level if the patient is MRI compatible. Preliminary impression was provided by virtual radiologic.
--- NOTE | 2017-06-27 20:23 | PN ---
DATE: 06/27/2017 SUBJECTIVE: The patient is in bed, no acute distress, nontoxic, was seen earlier this morning. PHYSICAL EXAMINATION VITAL SIGNS: Temperature is 98, blood pressure is 100/70, respiratory rate of 18. HEENT: Unremarkable. NECK: Supple. LUNGS: Decreased breath sounds. HEART: Normal S1 and S2. ABDOMEN: Soft, nontender. LABORATORY DATA: Reveals a white count of 5.7, hemoglobin of 11, platelets of 147. Coagulation is noted. Chemistries reveal a BUN of 42, creatinine of 1.4. Microbiology is noted and the patient had a CAT scan of the lower extremity. No clear evidence to suggest acute osteomyelitis and the patient did have a bone scan, it is possible suspicious for osteomyelitis. Review of the creatinine is 1.4. ASSESSMENT AND PLAN: A 57-year-old morbidly obese male with a BMI of over 54 and skin and skin soft tissue infection, bilateral leg ulcers, recurrent leg infection, venous stasis, multi-drug resistant Pseudomonas and extended-spectrum beta-lactamases, Escherichia coli and currently a patient who is hypertensive, diabetic, chronic obstructive lung disease, hypothyroidism and day #6 of meropenem and also on tobramycin once daily. We will review the CAT scan, although official report is no osteomyelitis. We will make further recommendations. Ralph Blanco MD
[2017-06-28] MEDS: oxyCODONE 80 mg ER Tab (oxyCONTIN) PO SCH ×5 (00:02→23:57)
[2017-06-28] MEDS: oxyCODONE 15 mg Immediate Release Tab PO PRN ×4 (03:27→21:41)
[2017-06-28] MEDS: Meropenem 1g/NS 100mL IVPB 1 GM/100 ML PIGGYBACK IVPB SCH ×3 (05:33→21:41)
[2017-06-28] MEDS: Levothyroxine 75 MCG TAB PO SCH (05:33)
[2017-06-28] MEDS: Pantoprazole 40 mg EC Tab PO SCH (05:33)
[2017-06-28] MEDS: Arformoterol 15 mcg/2 ml Inh Sol IH SCH ×2 (07:13→19:47)
[2017-06-28] MEDS: Budesonide 0.5 mg/2 ml Inhal Susp UD IH SCH ×2 (07:13→19:47)
[2017-06-28 07:56] LABS: CALCIUM 9.3 mg/dL (8.4-10.5); POTASSIUM 4.6 mmol/L (3.6-5.0)
[2017-06-28] MEDS: Insulin Reg-MEDIUM-Coverage SC SCH ×4 (08:05→23:00)
[2017-06-28 08:18] LABS: BASO # 0.05 K/mm3 (0.0-2.0); EOS # 0.4 (0.0-0.7); GRAN # 2.68 (1.4-6.5); HEMATOCRIT 36.5 % (42.0-52.0); LYMPH # 1.7 (1.2-3.4); LYMPH % 32.6 % (22.0-35.0); MEAN CELL VOLUME 86.3 fl (80.0-105.0); MEAN CORPUSCULAR HEMOGLOBIN 27.9 pg (25.0-35.0); MEAN CORPUSCULAR HGB CONC 32.3 g/dl (31.0-37.0); MEAN PLATELET VOLUME 11.6 fl (7.0-11.0); MONO # 0.4 (0.1-0.6); MONO % 7.4 % (1.0-6.0); WHITE BLOOD COUNT 5.2 10^3/ul (4.5-11.0)
[2017-06-28] MEDS: Lactobacillus Acidophilus 500 MU Cap PO SCH ×2 (10:21→17:55)
[2017-06-28] MEDS: Potassium Chloride 20 mEq ER Tab PO SCH (10:22)
[2017-06-28] MEDS: Nystatin 100,000 Units/gm Topical Pow(15 gm) TOP SCH ×2 (10:23→17:56)
[2017-06-28 11:15] LABS: INR 3.2 (0.93-1.08)
--- NOTE | 2017-06-28 14:09 | CP.PCM.PN ---
<Cher Oliva - Last Filed: 06/28/17 22:42> Subjective - Date & Time of Evaluation Date of Evaluation: 06/28/17 Time of Evaluation: 11:45 - Subjective Subjective: Podiatry Progress Note 57 y/o male seen at bedside this morning concerning bilateral venous stasis ulcerations. Pt is AAO x3 and in NAD. Patient admits to significant pain in the left leg when he puts any pressure on the outside of the leg while in bed. Patient denies any acute events overnight. Pt has no other pedal complaints at this time. Patient denies N/V/F/D/C/SOB. Objective - Vital Signs/Intake and Output Vital Signs (last 24 hours): Temp Pulse Resp BP Pulse Ox 97.8 F 65 20 108/50 L 95 06/28/17 10:00 06/28/17 10:23 06/28/17 10:00 06/28/17 10:23 06/28/17 10:00 Intake and Output: 06/28/17 06/28/17 06:59 18:59 Output Total 1300 Balance -1300 - Medications Medications: Current Medications Arformoterol Tartrate (Brovana) 15 mcg IH [id number] [facility] PRN Reason: Protocol Last Admin: 06/28/17 07:13 Dose: 15 mcg Budesonide (Pulmicort Respules) 0.5 mg IH [id number] [facility] PRN Reason: Protocol Last Admin: 06/28/17 07:13 Dose: 0.5 mg Docusate Sodium (Colace) 100 mg PO BID [facility] PRN Reason: Protocol Last Admin: 06/28/17 10:21 Dose: 100 mg Furosemide (Lasix) 80 mg PO DAILY [facility] PRN Reason: Protocol Last Admin: 06/28/17 10:22 Dose: Not Given Gabapentin (Neurontin) 300 mg PO QID [facility] PRN Reason: Protocol Last Admin: 06/28/17 10:21 Dose: 300 mg Hydralazine HCl (Apresoline) 10 mg PO QID [facility] Meropenem 1g/NS 100mL IVPB (Meropenem 1g/Ns 100ml Ivpb) 1 gm in 100 mls @ 100 mls/hr IVPB Q8 [facility] PRN Reason: Protocol Stop: 06/30/17 22:01 Last Admin: 06/28/17 05:33 Dose: 100 mls/hr Tobramycin Sulfate 300 mg/ (Sodium Chloride) 107.5 mls @ 100 mls/hr IV DAILY [facility] Last Admin: 06/28/17 10:23 Dose: 100 mls/hr Insulin Human Regular (Humulin R Med) 0 units SC ACHS [facility] PRN Reason: Protocol Last Admin: 06/28/17 11:57 Dose: 1 units Lactobacillus Acidophilus (Bacid Acidophilus) 1 cap PO BID [facility] PRN Reason: Protocol Last Admin: 06/28/17 10:21 Dose: 1 cap Levothyroxine Sodium (Synthroid) 75 mcg PO 0600 [facility] Last Admin: 06/28/17 05:33 Dose: 75 mcg Metoprolol Tartrate (Lopressor) 25 mg PO BID [facility] PRN Reason: Protocol Last Admin: 06/28/17 10:23 Dose: Not Given Montelukast Sodium (Singulair) 10 mg PO DAILY [facility] PRN Reason: Protocol Last Admin: 06/28/17 10:23 Dose: 10 mg Nystatin (Nystop Topical Powder) 0 gm TOP BID [facility] PRN Reason: Protocol Stop: 07/02/17 10:00 Last Admin: 06/28/17 10:23 Dose: 1 applic Oxycodone HCl (Oxycodone Immediate Release Tab) 15 mg PO Q6H PRN; Protocol PRN Reason: Pain, severe (8-10) Last Admin: 06/28/17 09:27 Dose: 15 mg Oxycodone HCl (Oxycontin Extended Release Tab) 80 mg PO Q6 [facility] Last Admin: 06/28/17 11:56 Dose: 80 mg Pantoprazole Sodium (Protonix Ec Tab) 40 mg PO 0600 [facility] Last Admin: 06/28/17 05:33 Dose: 40 mg Potassium Chloride (K-Dur 20 Meq Er Tab) 20 meq PO DAILY [facility] PRN Reason: Protocol Last Admin: 06/28/17 10:22 Dose: 20 meq Trazodone HCl (Desyrel) 50 mg PO HS [facility] PRN Reason: Protocol Last Admin: 06/27/17 21:32 Dose: 50 mg Warfarin Sodium (Coumadin) 1 mg PO 1800 [facility] PRN Reason: Protocol Last Admin: 06/27/17 17:55 Dose: 1 mg Warfarin Sodium (Coumadin) 10 mg PO 1800 [facility] PRN Reason: Protocol Last Admin: 06/27/17 17:55 Dose: 10 mg - Labs Labs: 06/28/17 06:50 06/28/17 06:50 PT 34.6 Seconds (9.9-11.8) H* 06/28/17 10:30 INR 3.20 (0.93-1.08) H 06/28/17 10:30 - Constitutional Appears: Well, Non-toxic, No Acute Distress - Extremities Exam Additional comments: Bilateral lower extremity exam Derm: Localized erythema to bilateral mid-calves. Cellulitis localized along superficial ulcerations. Left: Diffuse open venous stasis ulcerations spanning the anterior and lateral aspects of mid-leg with significant amount of active sanguinous drainage. Ulcerations have a granular base with bleeding tissue. No probe to bone, no malodor, no purulence, no undermining. Right: Diffuse venous stasis ulcerations to anterior distal 1/3 of leg with granular base, mild amount of serous drainage, no active bleeding, no undermining, no tracking, no probe to bone. Superficial ulceration with no active drainage noted to medial aspect of right leg with granular base, no purulence. Vasc: Non-palpable pedal pulses due to edema B/L. TG warm to warm, CFT < 3 sec to all digits, +1 pitting edema to B/L legs. Neuro: protective sensation grossly diminished MSK: significant tenderness on palpation of left lower extremity - Neurological Exam Neurological Exam: Alert, Awake, Oriented x3 - Psychiatric Exam Psychiatric exam: Normal Affect, Normal Mood Assessment and Plan - Assessment and Plan (Free Text) Assessment: 57 y/o male with bilateral venous stasis ulcerations Plan: Patient evaluated and seen at bedside Discussed plan in detail with attending Dr. Daniels Labs and vitals reviewed; afebrile, WBC 5.2 Continue IV abx per ID Cleansed legs with saline Bilateral legs dressed with Adaptic, Maxorb, ABDs, Kerlix and YAYO bandages Pt tolerated dressing changes but experiencing increasing pain to LLE WCX from 06/20 of left leg: E.Coli, Pseudomonas New wound culture taken today Podiatry will continue to monitor while patient remains in house <Preeti Daniels - Last Filed: 07/03/17 13:16> Objective - Vital Signs/Intake and Output Vital Signs (last 24 hours): Temp Pulse Resp BP Pulse Ox 98 F 59 L 18 129/76 96 07/03/17 10:00 07/03/17 11:38 07/03/17 10:00 07/03/17 11:38 07/02/17 16:00 - Medications Medications: Current Medications Acetaminophen (Tylenol 325mg Tab) 650 mg PO Q6H PRN; Protocol PRN Reason: Pain, Mild (1-3) Last Admin: 07/03/17 10:19 Dose: 650 mg Arformoterol Tartrate (Brovana) 15 mcg IH [id number] [facility]INE PRN Reason: Protocol Last Admin: 07/03/17 07:15 Dose: Not Given Budesonide (Pulmicort Respules) 0.5 mg IH [id number] [facility] PRN Reason: Protocol Last Admin: 07/03/17 07:15 Dose: Not Given Docusate Sodium (Colace) 100 mg PO BID [facility] PRN Reason: Protocol Last Admin: 07/03/17 10:27 Dose: 100 mg Fluticasone Propionate (Flonase) 1 actuation NS DAILY [facility] PRN Reason: Protocol Last Admin: 07/03/17 11:39 Dose: 1 applic Furosemide (Lasix) 80 mg PO DAILY [facility] PRN Reason: Protocol Last Admin: 07/03/17 10:22 Dose: 80 mg Gabapentin (Neurontin) 300 mg PO QID [facility] PRN Reason: Protocol Last Admin: 07/03/17 10:20 Dose: 300 mg Hydralazine HCl (Apresoline) 10 mg PO QID [facility] Last Admin: 07/03/17 11:38 Dose: Not Given Meropenem 1g/NS 100mL IVPB (Meropenem 1g/Ns 100ml Ivpb) 1 gm in 100 mls @ 100 mls/hr IVPB Q8 [facility] PRN Reason: Protocol Stop: 07/08/17 15:31 Last Admin: 07/03/17 05:17 Dose: 100 mls/hr Trimethoprim/Sulfamethoxazole (1,241 mg/ Dextrose) 1,000 mls @ 250 mls/hr IVPB Q12H [facility] Insulin Human Regular (Humulin R Med) 0 units SC ACHS [facility] PRN Reason: Protocol Last Admin: 07/03/17 12:50 Dose: Not Given Lactobacillus Acidophilus (Bacid Acidophilus) 1 cap PO BID [facility] PRN Reason: Protocol Last Admin: 07/03/17 10:21 Dose: 1 cap Levothyroxine Sodium (Synthroid) 75 mcg PO 0600 [facility] Last Admin: 07/03/17 05:18 Dose: 75 mcg Metoprolol Tartrate (Lopressor) 25 mg PO BID [facility] PRN Reason: Protocol Last Admin: 07/03/17 10:23 Dose: 25 mg Montelukast Sodium (Singulair) 10 mg PO DAILY [facility] PRN Reason: Protocol Last Admin: 07/03/17 10:21 Dose: 10 mg Mupirocin (Bactroban Ointment) 1 gm TOP 1000,2200 [facility] PRN Reason: Protocol Last Admin: 07/03/17 11:38 Dose: 1 applic Oxycodone HCl (Oxycodone Immediate Release Tab) 15 mg PO Q6H PRN; Protocol PRN Reason: Pain, severe (8-10) Last Admin: 07/03/17 11:36 Dose: 15 mg Oxycodone HCl (Oxycontin Extended Release Tab) 80 mg PO Q6 [facility] Last Admin: 07/03/17 12:35 Dose: 80 mg Pantoprazole Sodium (Protonix Ec Tab) 40 mg PO 0600 [facility] Last Admin: 07/03/17 05:18 Dose: 40 mg Trazodone HCl (Desyrel) 50 mg PO HS [facility] PRN Reason: Protocol Last Admin: 07/02/17 21:55 Dose: 50 mg Warfarin Sodium (Coumadin) 10 mg PO 1800 [facility] PRN Reason: Protocol Last Admin: 07/02/17 17:11 Dose: 10 mg - Labs Labs: 06/28/17 06:50 06/29/17 07:10 PT 33.5 Seconds (9.9-11.8) H* 07/03/17 06:45 INR 3.10 (0.93-1.08) H 07/03/17 06:45 Attending/Attestation - Attestation I have personally seen and examined this patient.: Yes I have fully participated in the care of the patient.: Yes I have reviewed all pertinent clinical information, including history, physical exam and plan: Yes
--- NOTE | 2017-06-28 16:25 | PN ---
DATE: 06/28/2017 SUBJECTIVE: The patient seen in bed, in no acute distress, nontoxic, no fevers and chills. PHYSICAL EXAMINATION: GENERAL: On exam, the patient is in bed, no acute distress. VITAL SIGNS: Temperature of 98, blood pressure is 112/70, respiratory rate of 16. HEENT: Unremarkable. NECK: Supple. LUNGS: Have decreased breath sounds. HEART: Normal S1 and S2. ABDOMEN: Soft, nontender, no organomegaly, no rebound, no guarding, no masses. EXTREMITIES: Examination of the leg; I am waiting for Podiatry to open the leg up. LABORATORY DATA: WBC count is 5.2, hemoglobin of 11, creatinine is 1.5. MEDICATIONS: Reviewed. The patient is on meropenem and tobramycin. IMAGING: The patient's CAT scan of the leg is noted. No evidence of osteomyelitis. ASSESSMENT AND PLAN: This is a 57-year-old morbidly obese male with a body mass index of over 54, skin and skin soft tissue infection, bilateral leg ulcers, recurrent leg infection, venous stasis, multi-drug resistant Pseudomonas and extended-spectrum beta-lactamase Escherichia coli, currently a patient who is hypertensive, diabetic, chronic obstructive lung disease, hypothyroidism, day #7 of meropenem, also on tobramycin once daily with renal insufficiency, with negative CAT scan for osteomyelitis and possible osteomyelitis on a bone scan. We will follow with you. Ralph Blanco MD
[2017-06-29] MEDS: oxyCODONE 80 mg ER Tab (oxyCONTIN) PO SCH ×4 (05:00→23:42)
[2017-06-29] MEDS: Levothyroxine 75 MCG TAB PO SCH (05:00)
[2017-06-29] MEDS: Meropenem 1g/NS 100mL IVPB 1 GM/100 ML PIGGYBACK IVPB SCH ×3 (05:00→21:29)
[2017-06-29] MEDS: Pantoprazole 40 mg EC Tab PO SCH (05:00)
[2017-06-29] MEDS: oxyCODONE 15 mg Immediate Release Tab PO PRN ×3 (05:34→19:51)
[2017-06-29] MEDS: Arformoterol 15 mcg/2 ml Inh Sol IH SCH ×2 (07:07→20:16)
[2017-06-29] MEDS: Budesonide 0.5 mg/2 ml Inhal Susp UD IH SCH ×2 (07:07→20:16)
[2017-06-29] MEDS: Insulin Reg-MEDIUM-Coverage SC SCH ×4 (07:12→21:59)
[2017-06-29 07:36] LABS: INR 2.85 (0.93-1.08)
[2017-06-29 07:38] LABS: BLOOD UREA NITROGEN 49 mg/dL (7-21); CALCIUM 9.3 mg/dL (8.4-10.5); CARBON DIOXIDE 32 mmol/L (21-33); CHLORIDE 99 mmol/L (95-110); GFR AFRICAN-AMERICAN > 60; GLUCOSE,RANDOM 100 mg/dL (70-110); POTASSIUM 4.6 mmol/L (3.6-5.0); SODIUM 139 mmol/L (132-148)
--- NOTE | 2017-06-29 09:04 | CP.PCM.CON ---
History of Present Illness - History of Present Illness History of Present Illness: patient seen on june [id number] cellulitis left leg , multiple medical problems,chronic pain managment. Review of Systems - EENT Eyes: As Per HPI - Cardiovascular Cardiovascular: As Per HPI, Dyspnea on Exertion, Leg Edema, Pedal Edema - Respiratory Respiratory: As Per HPI, Dyspnea - Gastrointestinal Gastrointestinal: As Per HPI - Genitourinary Genitourinary: As Per HPI - Musculoskeletal Musculoskeletal: Abnormal Gait, Arthralgias, Back Pain, Deformity, Myalgias, Numbness, Stiffness - Integumentary Integumentary: Pruritus, Rash, Skin Ulcer - Psychiatric Psychiatric: Anxiety Past Patient History - Infectious Disease Hx of Infectious Diseases: None - Tetanus Immunizations Tetanus Immunization: Unknown - Past Medical History & Family History Past Medical History?: Yes - Past Social History Smoking Status: Never Smoked - CARDIAC Hx Congestive Heart Failure: Yes Hx Hypertension: Yes - PULMONARY Hx Chronic Obstructive Pulmonary Disease (COPD): Yes - NEUROLOGICAL Hx Neurological Disorder: No - HEENT Hx HEENT Problems: No - RENAL Hx Chronic Kidney Disease: Yes (required HD in 2016 briefly) - ENDOCRINE/METABOLIC Hx Diabetes Mellitus Type 2: Yes Hx Hypothyroidism: Yes - HEMATOLOGICAL/ONCOLOGICAL Hx Blood Disorders: No - INTEGUMENTARY Hx Dermatological Problems: Yes Other/Comment: both leggs discolored - MUSCULOSKELETAL/RHEUMATOLOGICAL Hx Falls: No - GASTROINTESTINAL Hx Gastrointestinal Disorders: (reflux obese) - GENITOURINARY/GYNECOLOGICAL Hx Reproductive Disorders: No - PSYCHIATRIC Hx Depression: Yes - SURGICAL HISTORY Hx Orthopedic Surgery: Yes (bilateral knee replacement) Other/Comment: total left knee - 1998. right ankle screws - 1987. right hip jason - 1982 - ANESTHESIA Hx Anesthesia: Yes Hx Anesthesia Reactions: No Hx Malignant Hyperthermia: No Meds Allergies/Adverse Reactions: Allergies Allergy/AdvReac Type Severity Reaction Status Date / Time No Known Allergies Allergy Verified 06/26/17 08:26 - Medications Medications: Current Medications Arformoterol Tartrate (Brovana) 15 mcg IH [id number] [facility] PRN Reason: Protocol Last Admin: 06/29/17 07:07 Dose: Not Given Budesonide (Pulmicort Respules) 0.5 mg IH [id number] [facility] PRN Reason: Protocol Last Admin: 06/29/17 07:07 Dose: Not Given Docusate Sodium (Colace) 100 mg PO BID [facility] PRN Reason: Protocol Last Admin: 06/28/17 17:55 Dose: 100 mg Furosemide (Lasix) 80 mg PO DAILY [facility] PRN Reason: Protocol Last Admin: 06/28/17 10:22 Dose: Not Given Gabapentin (Neurontin) 300 mg PO QID [facility] PRN Reason: Protocol Last Admin: 06/28/17 22:59 Dose: 300 mg Hydralazine HCl (Apresoline) 10 mg PO QID [facility] [place] Last Admin: 06/28/17 21:40 Dose: 10 mg Meropenem 1g/NS 100mL IVPB (Meropenem 1g/Ns 100ml Ivpb) 1 gm in 100 mls @ 100 mls/hr IVPB Q8 [facility] PRN Reason: Protocol Stop: 06/30/17 22:01 Last Admin: 06/29/17 05:00 Dose: 100 mls/hr Tobramycin Sulfate 300 mg/ (Sodium Chloride) 107.5 mls @ 100 mls/hr IV DAILY [facility] [place] Last Admin: 06/28/17 10:23 Dose: 100 mls/hr Insulin Human Regular (Humulin R Med) 0 units SC ACHS [facility] PRN Reason: Protocol Last Admin: 06/29/17 07:12 Dose: Not Given Lactobacillus Acidophilus (Bacid Acidophilus) 1 cap PO BID [facility] PRN Reason: Protocol Last Admin: 06/28/17 17:55 Dose: 1 cap Levothyroxine Sodium (Synthroid) 75 mcg PO 0600 [facility] [place] Last Admin: 06/29/17 05:00 Dose: 75 mcg Metoprolol Tartrate (Lopressor) 25 mg PO BID [facility] PRN Reason: Protocol Last Admin: 06/28/17 17:55 Dose: Not Given Montelukast Sodium (Singulair) 10 mg PO DAILY [facility] [place] PRN Reason: Protocol Last Admin: 06/28/17 10:23 Dose: 10 mg Nystatin (Nystop Topical Powder) 0 gm TOP BID [facility] PRN Reason: Protocol Stop: 07/02/17 10:00 Last Admin: 06/28/17 17:56 Dose: 1 applic Oxycodone HCl (Oxycodone Immediate Release Tab) 15 mg PO Q6H PRN; Protocol PRN Reason: Pain, severe (8-10) Last Admin: 06/29/17 05:34 Dose: 15 mg Oxycodone HCl (Oxycontin Extended Release Tab) 80 mg PO Q6 [facility] [place] Last Admin: 06/29/17 05:00 Dose: 80 mg Pantoprazole Sodium (Protonix Ec Tab) 40 mg PO 0600 [facility] [place] Last Admin: 06/29/17 05:00 Dose: 40 mg Potassium Chloride (K-Dur 20 Meq Er Tab) 20 meq PO DAILY [facility] [place] PRN Reason: Protocol Last Admin: 06/28/17 10:22 Dose: 20 meq Trazodone HCl (Desyrel) 50 mg PO HS [facility] [place] PRN Reason: Protocol Last Admin: 06/28/17 21:41 Dose: 50 mg Warfarin Sodium (Coumadin) 1 mg PO 1800 [facility] [place] PRN Reason: Protocol Last Admin: 06/27/17 17:55 Dose: 1 mg Warfarin Sodium (Coumadin) 10 mg PO 1800 [facility] [place] PRN Reason: Protocol Last Admin: 06/27/17 17:55 Dose: 10 mg Physical Exam - Constitutional Appears: Well - Head Exam Head Exam: ATRAUMATIC, NORMAL INSPECTION, NORMOCEPHALIC - Eye Exam Eye Exam: EOMI, Normal appearance, PERRL Pupil Exam: NORMAL ACCOMODATION, PERRL - ENT Exam ENT Exam: Mucous Membranes Moist, Normal Exam - Cardiovascular Exam Cardiovascular Exam: REGULAR RHYTHM - GI/Abdominal Exam GI & Abdominal Exam: Normal Bowel Sounds, Soft - Rectal Exam Rectal Exam: NORMAL INSPECTION - Back Exam Back exam: NORMAL INSPECTION (morbi obese), paraspinal tenderness - Neurological Exam Neurological exam: Normal Gait, Oriented x3 - Psychiatric Exam Psychiatric exam: Normal Affect, Normal Mood Results - Vital Signs Recent Vital Signs: Last Vital Signs Temp 97.8 F 06/28/17 10:00 Pulse 64 06/28/17 21:40 Resp 20 06/28/17 10:00 BP 117/78 06/28/17 21:40 Pulse Ox 95 06/28/17 10:00 - Labs Result Diagrams: 06/28/17 06:50 06/29/17 07:10 Labs: Laboratory Results - last 24 hr 06/27/17 06/27/17 06/28/17 16:48 22:23 06:37 PT INR Sodium Potassium Chloride Carbon Dioxide Anion Gap BUN Creatinine Est GFR ( Amer) Est GFR (Non-Af Amer) POC Glucose (mg/dL) 117 H 108 112 H Random Glucose Calcium 06/28/17 06/28/17 06/28/17 10:30 11:23 16:57 PT 34.6 H* INR 3.20 H Sodium Potassium Chloride Carbon Dioxide Anion Gap BUN Creatinine Est GFR ( Amer) Est GFR (Non-Af Amer) POC Glucose (mg/dL) 153 H 103 Random Glucose Calcium 06/29/17 06/29/17 07:10 07:10 PT 30.8 H* INR 2.85 H Sodium 139 Potassium 4.6 Chloride 99 Carbon Dioxide 32 Anion Gap 13 BUN 49 H Creatinine 1.4 Est GFR ( Amer) > 60 Est GFR (Non-Af Amer) 52 POC Glucose (mg/dL) Random Glucose 100 Calcium 9.3 Assessment & Plan (1) Obstructive sleep apnea Status: Acute (2) Acute renal failure (ARF) Status: Acute (3) Anxiety disorder due to general medical condition Status: Acute (4) Cellulitis Status: Acute (5) NATHAN (generalized anxiety disorder) Status: Acute (6) Infected stasis ulcer of left lower extremity Status: Acute Priority: High (7) Left leg pain Status: Acute (8) Hyperglycemia Status: Chronic (9) Hypertension Status: Chronic Priority: Low (10) Hypothyroidism Status: Chronic Priority: Medium (11) Low back pain Status: Chronic (12) Morbid obesity with BMI of 50.0-59.9, adult Status: Chronic - Assessment and Plan (Free Text) Assessment: continue current meds, , inr, for dvt, sleep apnea bipap, continue pain meds
--- NOTE | 2017-06-29 09:08 | CP.PCM.PN ---
Subjective - Date & Time of Evaluation Date of Evaluation: 06/27/17 Time of Evaluation: 12:00 - Subjective Subjective: feel pain specially with dressing changes, Objective - Vital Signs/Intake and Output Vital Signs (last 24 hours): Temp Pulse Resp BP Pulse Ox 97.8 F 64 20 117/78 95 06/28/17 10:00 06/28/17 21:40 06/28/17 10:00 06/28/17 21:40 06/28/17 10:00 Intake and Output: 06/29/17 06/29/17 06:59 18:59 Intake Total 460 Output Total 1200 Balance -740 - Medications Medications: Current Medications Arformoterol Tartrate (Brovana) 15 mcg IH [id number] [facility] PRN Reason: Protocol Last Admin: 06/29/17 07:07 Dose: Not Given Budesonide (Pulmicort Respules) 0.5 mg IH [id number] [facility] PRN Reason: Protocol Last Admin: 06/29/17 07:07 Dose: Not Given Docusate Sodium (Colace) 100 mg PO BID [facility] PRN Reason: Protocol Last Admin: 06/28/17 17:55 Dose: 100 mg Furosemide (Lasix) 80 mg PO DAILY [facility] PRN Reason: Protocol Last Admin: 06/28/17 10:22 Dose: Not Given Gabapentin (Neurontin) 300 mg PO QID [facility] PRN Reason: Protocol Last Admin: 06/28/17 22:59 Dose: 300 mg Hydralazine HCl (Apresoline) 10 mg PO QID [facility] Last Admin: 06/28/17 21:40 Dose: 10 mg Meropenem 1g/NS 100mL IVPB (Meropenem 1g/Ns 100ml Ivpb) 1 gm in 100 mls @ 100 mls/hr IVPB Q8 [facility] PRN Reason: Protocol Stop: 06/30/17 22:01 Last Admin: 06/29/17 05:00 Dose: 100 mls/hr Tobramycin Sulfate 300 mg/ (Sodium Chloride) 107.5 mls @ 100 mls/hr IV DAILY [facility] Last Admin: 06/28/17 10:23 Dose: 100 mls/hr Insulin Human Regular (Humulin R Med) 0 units SC ACHS [facility] PRN Reason: Protocol Last Admin: 06/29/17 07:12 Dose: Not Given Lactobacillus Acidophilus (Bacid Acidophilus) 1 cap PO BID [facility] PRN Reason: Protocol Last Admin: 06/28/17 17:55 Dose: 1 cap Levothyroxine Sodium (Synthroid) 75 mcg PO 0600 [facility] Last Admin: 06/29/17 05:00 Dose: 75 mcg Metoprolol Tartrate (Lopressor) 25 mg PO BID [facility] PRN Reason: Protocol Last Admin: 06/28/17 17:55 Dose: Not Given Montelukast Sodium (Singulair) 10 mg PO DAILY [facility] PRN Reason: Protocol Last Admin: 06/28/17 10:23 Dose: 10 mg Nystatin (Nystop Topical Powder) 0 gm TOP BID [facility] PRN Reason: Protocol Stop: 07/02/17 10:00 Last Admin: 06/28/17 17:56 Dose: 1 applic Oxycodone HCl (Oxycodone Immediate Release Tab) 15 mg PO Q6H PRN; Protocol PRN Reason: Pain, severe (8-10) Last Admin: 06/29/17 05:34 Dose: 15 mg Oxycodone HCl (Oxycontin Extended Release Tab) 80 mg PO Q6 [facility] Last Admin: 06/29/17 05:00 Dose: 80 mg Pantoprazole Sodium (Protonix Ec Tab) 40 mg PO 0600 [facility] Last Admin: 06/29/17 05:00 Dose: 40 mg Potassium Chloride (K-Dur 20 Meq Er Tab) 20 meq PO DAILY [facility] PRN Reason: Protocol Last Admin: 06/28/17 10:22 Dose: 20 meq Trazodone HCl (Desyrel) 50 mg PO HS [facility] PRN Reason: Protocol Last Admin: 06/28/17 21:41 Dose: 50 mg Warfarin Sodium (Coumadin) 1 mg PO 1800 [facility] PRN Reason: Protocol Last Admin: 06/27/17 17:55 Dose: 1 mg Warfarin Sodium (Coumadin) 10 mg PO 1800 [facility] PRN Reason: Protocol Last Admin: 06/27/17 17:55 Dose: 10 mg - Labs Labs: 06/28/17 06:50 06/29/17 07:10 PT 30.8 Seconds (9.9-11.8) H* 06/29/17 07:10 INR 2.85 (0.93-1.08) H 06/29/17 07:10 - Constitutional Appears: Well - Head Exam Head Exam: ATRAUMATIC, NORMAL INSPECTION, NORMOCEPHALIC - Eye Exam Eye Exam: EOMI, Normal appearance, PERRL - ENT Exam ENT Exam: Mucous Membranes Moist, Normal Exam - Neck Exam Neck Exam: Full ROM, Normal Inspection. absent: Lymphadenopathy - Respiratory Exam Respiratory Exam: Clear to Ausculation Bilateral, NORMAL BREATHING PATTERN - Cardiovascular Exam Cardiovascular Exam: REGULAR RHYTHM, +S1, +S2. absent: Murmur - GI/Abdominal Exam GI & Abdominal Exam: Soft, Normal Bowel Sounds. absent: Tenderness - Skin Skin Exam: Dry, Intact, Normal Color, Warm - Additional Findings Additional findings: left leg ulcer wrapped with gauze Assessment and Plan (1) Obstructive sleep apnea Status: Acute (2) Acute renal failure (ARF) Status: Acute (3) Anxiety disorder due to general medical condition Status: Acute (4) Cellulitis Status: Acute (5) NATHAN (generalized anxiety disorder) Status: Acute (6) Infected stasis ulcer of left lower extremity Status: Acute (7) Left leg pain Status: Acute (8) Hyperglycemia Status: Chronic (9) Hypertension Status: Chronic (10) Hypothyroidism Status: Chronic (11) Low back pain Status: Chronic (12) Morbid obesity with BMI of 50.0-59.9, adult Status: Chronic - Assessment and Plan (Free Text) Plan: increase oxycodone 15 mg q6h , continue current treatment
--- NOTE | 2017-06-29 09:16 | CP.PCM.PN ---
Subjective - Date & Time of Evaluation Date of Evaluation: 06/28/17 Time of Evaluation: 13:00 - Subjective Subjective: c/o pain left leg, back. , slept good no fever, no nvd. Objective - Vital Signs/Intake and Output Vital Signs (last 24 hours): Temp Pulse Resp BP Pulse Ox 97.8 F 64 20 117/78 95 06/28/17 10:00 06/28/17 21:40 06/28/17 10:00 06/28/17 21:40 06/28/17 10:00 Intake and Output: 06/29/17 06/29/17 06:59 18:59 Intake Total 460 Output Total 1200 Balance -740 - Medications Medications: Current Medications Arformoterol Tartrate (Brovana) 15 mcg IH [id number] [facility] PRN Reason: Protocol Last Admin: 06/29/17 07:07 Dose: Not Given Budesonide (Pulmicort Respules) 0.5 mg IH [id number] [facility]INE PRN Reason: Protocol Last Admin: 06/29/17 07:07 Dose: Not Given Docusate Sodium (Colace) 100 mg PO BID [facility] PRN Reason: Protocol Last Admin: 06/28/17 17:55 Dose: 100 mg Furosemide (Lasix) 80 mg PO DAILY [facility] PRN Reason: Protocol Last Admin: 06/28/17 10:22 Dose: Not Given Gabapentin (Neurontin) 300 mg PO QID [facility] PRN Reason: Protocol Last Admin: 06/28/17 22:59 Dose: 300 mg Hydralazine HCl (Apresoline) 10 mg PO QID [facility] Last Admin: 06/28/17 21:40 Dose: 10 mg Meropenem 1g/NS 100mL IVPB (Meropenem 1g/Ns 100ml Ivpb) 1 gm in 100 mls @ 100 mls/hr IVPB Q8 [facility] PRN Reason: Protocol Stop: 06/30/17 22:01 Last Admin: 06/29/17 05:00 Dose: 100 mls/hr Tobramycin Sulfate 300 mg/ (Sodium Chloride) 107.5 mls @ 100 mls/hr IV DAILY [facility] Last Admin: 06/28/17 10:23 Dose: 100 mls/hr Insulin Human Regular (Humulin R Med) 0 units SC ACHS [facility]INE PRN Reason: Protocol Last Admin: 06/29/17 07:12 Dose: Not Given Lactobacillus Acidophilus (Bacid Acidophilus) 1 cap PO BID [facility] PRN Reason: Protocol Last Admin: 06/28/17 17:55 Dose: 1 cap Levothyroxine Sodium (Synthroid) 75 mcg PO 0600 [facility] Last Admin: 06/29/17 05:00 Dose: 75 mcg Metoprolol Tartrate (Lopressor) 25 mg PO BID [facility] PRN Reason: Protocol Last Admin: 06/28/17 17:55 Dose: Not Given Montelukast Sodium (Singulair) 10 mg PO DAILY [facility] PRN Reason: Protocol Last Admin: 06/28/17 10:23 Dose: 10 mg Nystatin (Nystop Topical Powder) 0 gm TOP BID [facility] PRN Reason: Protocol Stop: 07/02/17 10:00 Last Admin: 06/28/17 17:56 Dose: 1 applic Oxycodone HCl (Oxycodone Immediate Release Tab) 15 mg PO Q6H PRN; Protocol PRN Reason: Pain, severe (8-10) Last Admin: 06/29/17 05:34 Dose: 15 mg Oxycodone HCl (Oxycontin Extended Release Tab) 80 mg PO Q6 [facility] Last Admin: 06/29/17 05:00 Dose: 80 mg Pantoprazole Sodium (Protonix Ec Tab) 40 mg PO 0600 [facility] Last Admin: 06/29/17 05:00 Dose: 40 mg Potassium Chloride (K-Dur 20 Meq Er Tab) 20 meq PO DAILY [facility] PRN Reason: Protocol Last Admin: 06/28/17 10:22 Dose: 20 meq Trazodone HCl (Desyrel) 50 mg PO HS [facility] PRN Reason: Protocol Last Admin: 06/28/17 21:41 Dose: 50 mg Warfarin Sodium (Coumadin) 1 mg PO 1800 [facility] PRN Reason: Protocol Last Admin: 06/27/17 17:55 Dose: 1 mg Warfarin Sodium (Coumadin) 10 mg PO 1800 [facility]INE PRN Reason: Protocol Last Admin: 06/27/17 17:55 Dose: 10 mg - Labs Labs: 06/28/17 06:50 06/29/17 07:10 PT 30.8 Seconds (9.9-11.8) H* 06/29/17 07:10 INR 2.85 (0.93-1.08) H 06/29/17 07:10 - Constitutional Appears: Well - Eye Exam Eye Exam: Conjunctival injection, EOMI, Normal appearance, Nystagmus, Periorbital swelling, Periorbital tenderness, PERRL, Scleral icterus - ENT Exam ENT Exam: Mucous Membranes Moist, Normal Exam - Neck Exam Neck Exam: Full ROM, Normal Inspection. absent: Lymphadenopathy - Respiratory Exam Respiratory Exam: Clear to Ausculation Bilateral, NORMAL BREATHING PATTERN - Cardiovascular Exam Cardiovascular Exam: REGULAR RHYTHM - Exam Exam: NORMAL INSPECTION External exam: NORMAL EXTERNAL EXAM - Extremities Exam Extremities Exam: Full ROM, Normal Inspection, Pedal Edema, Tenderness Additional comments: left legb ulcer dressing on. - Back Exam Back Exam: NORMAL INSPECTION - Neurological Exam Neurological Exam: Alert, Awake, CN II-XII Intact, Normal Gait, Oriented x3 - Skin Skin Exam: Normal Color Assessment and Plan (1) Obstructive sleep apnea Status: Acute (2) Acute renal failure (ARF) Status: Acute (3) Anxiety disorder due to general medical condition Status: Acute (4) Cellulitis Status: Acute (5) NATHAN (generalized anxiety disorder) Status: Acute (6) Infected stasis ulcer of left lower extremity Status: Acute (7) Left leg pain Status: Acute (8) Hyperglycemia Status: Chronic (9) Hypertension Status: Chronic (10) Hypothyroidism Status: Chronic (11) Low back pain Status: Chronic (12) Morbid obesity with BMI of 50.0-59.9, adult Status: Chronic - Assessment and Plan (Free Text) Plan: increase oxycontine, inr monitor. bipap for sleep apnea, continue current treatment.
[2017-06-29] MEDS: Lactobacillus Acidophilus 500 MU Cap PO SCH ×2 (10:14→17:55)
[2017-06-29] MEDS: Potassium Chloride 20 mEq ER Tab PO SCH (10:15)
[2017-06-29] MEDS: Nystatin 100,000 Units/gm Topical Pow(15 gm) TOP SCH ×2 (10:17→17:57)
--- NOTE | 2017-06-29 11:09 | CP.PCM.PN ---
<Cher Oliva - Last Filed: 06/29/17 11:17> Subjective - Date & Time of Evaluation Date of Evaluation: 06/29/17 Time of Evaluation: 11:09 - Subjective Subjective: Podiatry Progress Note for Dr. Daniels 57 y/o male seen at bedside with attending Dr. Daniels this morning concerning bilateral venous stasis ulcerations, left worse than the right. Pt is AAO x3 and in NAD. Patient admits to significant pain in the left leg when he puts any pressure on the outside of the leg while in bed. Patient denies any acute events overnight. Pt has no other pedal complaints at this time. Patient denies N/V/F/D/C/SOB. Objective - Vital Signs/Intake and Output Vital Signs (last 24 hours): Temp Pulse Resp BP Pulse Ox 97.8 F 66 20 116/74 98 06/29/17 09:42 06/29/17 10:16 06/29/17 09:42 06/29/17 10:16 06/29/17 09:42 Intake and Output: 06/29/17 06/29/17 06:59 18:59 Intake Total 460 Output Total 1200 Balance -740 - Medications Medications: Current Medications Arformoterol Tartrate (Brovana) 15 mcg IH [id number] SANDRINE PRN Reason: Protocol Last Admin: 06/29/17 07:07 Dose: Not Given Budesonide (Pulmicort Respules) 0.5 mg IH [id number] [facility]DRINE PRN Reason: Protocol Last Admin: 06/29/17 07:07 Dose: Not Given Docusate Sodium (Colace) 100 mg PO BID [facility]INE PRN Reason: Protocol Last Admin: 06/29/17 10:15 Dose: 100 mg Furosemide (Lasix) 80 mg PO DAILY [facility]INE PRN Reason: Protocol Last Admin: 06/29/17 10:16 Dose: 80 mg Gabapentin (Neurontin) 300 mg PO QID [facility] PRN Reason: Protocol Last Admin: 06/29/17 10:14 Dose: 300 mg Hydralazine HCl (Apresoline) 10 mg PO QID [facility] Last Admin: 06/29/17 10:14 Dose: 10 mg Meropenem 1g/NS 100mL IVPB (Meropenem 1g/Ns 100ml Ivpb) 1 gm in 100 mls @ 100 mls/hr IVPB Q8 [facility]INE PRN Reason: Protocol Stop: 06/30/17 22:01 Last Admin: 06/29/17 05:00 Dose: 100 mls/hr Insulin Human Regular (Humulin R Med) 0 units SC ACHS SANDRINE PRN Reason: Protocol Last Admin: 06/29/17 07:12 Dose: Not Given Lactobacillus Acidophilus (Bacid Acidophilus) 1 cap PO BID [facility]INE PRN Reason: Protocol Last Admin: 06/29/17 10:14 Dose: 1 cap Levothyroxine Sodium (Synthroid) 75 mcg PO 0600 [facility]INE Last Admin: 06/29/17 05:00 Dose: 75 mcg Metoprolol Tartrate (Lopressor) 25 mg PO BID [facility]INE PRN Reason: Protocol Last Admin: 06/29/17 10:16 Dose: 25 mg Montelukast Sodium (Singulair) 10 mg PO DAILY [facility]INE PRN Reason: Protocol Last Admin: 06/29/17 10:17 Dose: 10 mg Nystatin (Nystop Topical Powder) 0 gm TOP BID [facility]DRINE PRN Reason: Protocol Stop: 07/02/17 10:00 Last Admin: 06/29/17 10:17 Dose: 1 applic Oxycodone HCl (Oxycodone Immediate Release Tab) 15 mg PO Q6H PRN; Protocol PRN Reason: Pain, severe (8-10) Last Admin: 06/29/17 05:34 Dose: 15 mg Oxycodone HCl (Oxycontin Extended Release Tab) 80 mg PO Q6 [facility] Last Admin: 06/29/17 05:00 Dose: 80 mg Pantoprazole Sodium (Protonix Ec Tab) 40 mg PO 0600 [facility]INE Last Admin: 06/29/17 05:00 Dose: 40 mg Potassium Chloride (K-Dur 20 Meq Er Tab) 20 meq PO DAILY [facility]INE PRN Reason: Protocol Last Admin: 06/29/17 10:15 Dose: 20 meq Trazodone HCl (Desyrel) 50 mg PO HS [facility]DRINE PRN Reason: Protocol Last Admin: 06/28/17 21:41 Dose: 50 mg Warfarin Sodium (Coumadin) 1 mg PO 1800 SANDRINE PRN Reason: Protocol Last Admin: 06/27/17 17:55 Dose: 1 mg Warfarin Sodium (Coumadin) 10 mg PO 1800 SANDRINE PRN Reason: Protocol Last Admin: 06/27/17 17:55 Dose: 10 mg - Labs Labs: 06/28/17 06:50 06/29/17 07:10 PT 30.8 Seconds (9.9-11.8) H* 06/29/17 07:10 INR 2.85 (0.93-1.08) H 06/29/17 07:10 - Constitutional Appears: Well, Non-toxic, No Acute Distress - Extremities Exam Additional comments: Bilateral lower extremity examination: Derm: Localized erythema to bilateral mid-calves, decreasing. Cellulitis localized along superficial ulcerations. Left: Diffuse open venous stasis ulcerations spanning the anterior and lateral aspects of mid-leg with significant amount of active sanguinous drainage noted to proximal lateral ulcerations. Wounds have a granular base with actively bleeding tissue. Malodor noted upon dressing change. No probe to bone, no purulence, no undermining. Right: Venous stasis ulceration to anterior distal 1/3 of leg measuring approximately 2.5cm x 1.8cm x 0.1cm with granular base, mild amount of serous drainage, no active bleeding, no undermining, no tracking, no probe to bone. Superficial ulceration with no active drainage noted to medial aspect of right leg with granular base, no purulence. Vasc: Non-palpable pedal pulses due to edema B/L. TG warm to warm, CFT < 3 sec to all digits, +1 pitting edema to B/L legs. Neuro: protective sensation grossly diminished MSK: significant tenderness on palpation of left lower extremity - Neurological Exam Neurological Exam: Alert, Awake, Oriented x3 - Psychiatric Exam Psychiatric exam: Normal Affect, Normal Mood Assessment and Plan - Assessment and Plan (Free Text) Assessment: 57 y/o male with bilateral venous stasis ulcerations Plan: Patient evaluated and seen at bedside with attending Dr. Daniels Labs and vitals reviewed; afebrile, WBC 5.2 Continue IV abx per ID - Meropenem (Tobra discontinued at this time) Cleansed legs with normal saline and 4x4s Bilateral legs dressed with Telfa, Maxorb, ABDs, Kerlix and loosely wrapped YAYO bandages Nursing orders placed for q12h dressing changes with Bactroban to wounds, Telfa , ABD pads, Kerlix and lightly wrapped YAYO bandages to B/L legs Wound culture from 06/28 results pending Podiatry will continue to monitor while patient remains in house <Preeti Daniels - Last Filed: 07/03/17 13:17> Objective - Vital Signs/Intake and Output Vital Signs (last 24 hours): Temp Pulse Resp BP Pulse Ox 98 F 59 L 18 129/76 96 07/03/17 10:00 07/03/17 11:38 07/03/17 10:00 07/03/17 11:38 07/02/17 16:00 - Medications Medications: Current Medications Acetaminophen (Tylenol 325mg Tab) 650 mg PO Q6H PRN; Protocol PRN Reason: Pain, Mild (1-3) Last Admin: 07/03/17 10:19 Dose: 650 mg Arformoterol Tartrate (Brovana) 15 mcg IH [id number] SANDRINE PRN Reason: Protocol Last Admin: 07/03/17 07:15 Dose: Not Given Budesonide (Pulmicort Respules) 0.5 mg IH [id number] [facility]DRINE PRN Reason: Protocol Last Admin: 07/03/17 07:15 Dose: Not Given Docusate Sodium (Colace) 100 mg PO BID [facility]DRINE PRN Reason: Protocol Last Admin: 07/03/17 10:27 Dose: 100 mg Fluticasone Propionate (Flonase) 1 actuation NS DAILY [facility]DRINE PRN Reason: Protocol Last Admin: 07/03/17 11:39 Dose: 1 applic Furosemide (Lasix) 80 mg PO DAILY [facility]INE PRN Reason: Protocol Last Admin: 07/03/17 10:22 Dose: 80 mg Gabapentin (Neurontin) 300 mg PO QID [facility] PRN Reason: Protocol Last Admin: 07/03/17 10:20 Dose: 300 mg Hydralazine HCl (Apresoline) 10 mg PO QID [facility] Last Admin: 07/03/17 11:38 Dose: Not Given Meropenem 1g/NS 100mL IVPB (Meropenem 1g/Ns 100ml Ivpb) 1 gm in 100 mls @ 100 mls/hr IVPB Q8 [facility]DRINE PRN Reason: Protocol Stop: 07/08/17 15:31 Last Admin: 07/03/17 05:17 Dose: 100 mls/hr Trimethoprim/Sulfamethoxazole (1,241 mg/ Dextrose) 1,000 mls @ 250 mls/hr IVPB Q12H [facility] Insulin Human Regular (Humulin R Med) 0 units SC ACHS SANDRINE PRN Reason: Protocol Last Admin: 07/03/17 12:50 Dose: Not Given Lactobacillus Acidophilus (Bacid Acidophilus) 1 cap PO BID [facility]DRINE PRN Reason: Protocol Last Admin: 07/03/17 10:21 Dose: 1 cap Levothyroxine Sodium (Synthroid) 75 mcg PO 0600 [facility] Last Admin: 07/03/17 05:18 Dose: 75 mcg Metoprolol Tartrate (Lopressor) 25 mg PO BID [facility]DRINE PRN Reason: Protocol Last Admin: 07/03/17 10:23 Dose: 25 mg Montelukast Sodium (Singulair) 10 mg PO DAILY [facility]DRINE PRN Reason: Protocol Last Admin: 07/03/17 10:21 Dose: 10 mg Mupirocin (Bactroban Ointment) 1 gm TOP 1000,2200 [facility]DRINE PRN Reason: Protocol Last Admin: 07/03/17 11:38 Dose: 1 applic Oxycodone HCl (Oxycodone Immediate Release Tab) 15 mg PO Q6H PRN; Protocol PRN Reason: Pain, severe (8-10) Last Admin: 07/03/17 11:36 Dose: 15 mg Oxycodone HCl (Oxycontin Extended Release Tab) 80 mg PO Q6 [facility] Last Admin: 07/03/17 12:35 Dose: 80 mg Pantoprazole Sodium (Protonix Ec Tab) 40 mg PO 0600 [facility] Last Admin: 07/03/17 05:18 Dose: 40 mg Trazodone HCl (Desyrel) 50 mg PO HS [facility]DRINE PRN Reason: Protocol Last Admin: 07/02/17 21:55 Dose: 50 mg Warfarin Sodium (Coumadin) 10 mg PO 1800 [facility]DRINE PRN Reason: Protocol Last Admin: 07/02/17 17:11 Dose: 10 mg - Labs Labs: 06/28/17 06:50 06/29/17 07:10 PT 33.5 Seconds (9.9-11.8) H* 07/03/17 06:45 INR 3.10 (0.93-1.08) H 07/03/17 06:45 Attending/Attestation - Attestation I have personally seen and examined this patient.: Yes I have fully participated in the care of the patient.: Yes I have reviewed all pertinent clinical information, including history, physical exam and plan: Yes
--- NOTE | 2017-06-29 11:14 | CON ---
DATE: 06/28/2017 REFERRING PHYSICIAN: Dr. Moreno. REASON FOR CONSULTATION: Chronic obstructive lung disease, obstructive sleep apnea syndrome, chronic pain syndrome. 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 He is on antibiotics, receiving CPAP, not very compliant; getting nebulizer treatment, and feels okay. No hemoptysis, no hematemesis, no hematuria. Has Steven wraps over the lower extremities with still oozing ulcer and erythema. PAST MEDICAL HISTORY: As per history of present illness. ALLERGIES: Unknown. SOCIAL HISTORY: He is disabled. No history of smoking or alcohol use. FAMILY HISTORY: No significant cardiopulmonary disease reported. MEDICATIONS: He is on hydralazine 10 mg q.i.d., lactobacillus 1 capsule twice a day, Brovana 15 mcg inhaled twice a day, Colace 100 mg twice a day, Coumadin 11 mg was given, trazodone 50 mg at bedtime, insulin coverage, potassium 20 mEq daily, Lasix 80 mg daily, metoprolol tartrate 25 mg twice a day, meropenem 1 g IV q. 8 hours, gabapentin 300 mg q.i.d., oxycodone immediate release 15 mg q. 6 hours p.r.n., oxycodone extended release 80 mg q. 6 hours, Protonix 40 mg daily, Pulmicort inhaled twice a day, Singulair 10 mg daily, Synthroid 75 mcg daily, tobramycin 300 mg daily. REVIEW OF SYSTEMS: No headache. No hematuria. No rhinitis. Gets short of breath with exertion. No chest pain. No abdominal pain. No dysuria. Does have a leg swelling, oozing ulcers of both the lower extremities, left worse than the right. PHYSICAL EXAMINATION GENERAL: Lying in the bed, in no acute distress. VITAL SIGNS: Temperature is 98, heart rate is 65, respiratory rate is 20, blood pressure 113/57. HEENT: Moist mucous membranes. Crowded airway. Mallampati score is 4. NECK: Supple. No JVD. LUNGS: Fair airflow with few rhonchi. HEART: S1 and S2. ABDOMEN: Obese, soft, and nontender. No organomegaly. EXTREMITIES: Has edema of the both lower extremities, has Steven wraps with oozing ulcers. NEUROLOGICAL: Awake and alert. Follows simple command. LABORATORY DATA: Shows hemoglobin 11.8, hematocrit 36.5, WBC of 5.2, platelets are 134. INR is 3.20. Sodium 134, potassium 4.6, chloride 97, bicarbonate 27, BUN 54, creatinine 1.5, glucose is 108, calcium is 9.3. Had a CAT scan done of lower extremities, which shows examination is limited. There is arthroplasty hardware in the knee. No clear evidence suggesting acute osteomyelitis. IMPRESSION AND PLAN: Recurrent lower extremity oozing ulcers with cellulitis and edema, history of chronic deep vein thrombosis, history of IVC filter, history of pulmonary embolism, chronic obstructive lung disease, obstructive sleep apnea syndrome, chronic pain syndrome, ADL dysfunction, mostly bedridden. I agree with the present management, continue current CPAP use, keep head at 45 degrees, add nebulizer treatment, anticoagulation, gastric prophylaxis. Thank you and we will follow with you. Siri Santoyo MD
--- NOTE | 2017-06-29 17:45 | PN ---
DATE: 06/29/2017 SUBJECTIVE: The patient is in bed, in no acute distress, nontoxic. PHYSICAL EXAMINATION: VITAL SIGNS: Temperature is 98, blood pressure is 116/70 and respiratory rate of 18. HEENT: Unremarkable. NECK: Supple. LUNGS: Have decreased breath sounds. HEART: Normal S1 and S2. ABDOMEN: Soft and nontender. EXTREMITIES: Examination of leg reveals the leg is greatly improved and overall good granulation tissue, healthy tissue is present, it appears to be improving. LABORATORY EXAMINATION: Reveals the patient's white count is 5.2, hemoglobin of 11. Chemistries reveals the creatinine is 1.4. ASSESSMENT AND PLAN: This is a 57-year-old with morbid obesity with BMI of 54, skin and skin soft tissue infection with bilateral lower leg ulcers, recurrent left leg infection with severe cellulitis. At this admission, day #8 of meropenem, now the leg is much improved; there is renal insufficiency and the CAT scan is negative for osteomyelitis. We will discontinue tobramycin and complete 10 to 14 days of meropenem, today is day #8. The patient's leg is greatly improved. Today is day #8 of meropenem. We will discontinue tobramycin. We will complete 10 to 14 days of meropenem. Ralph Blanco MD
--- NOTE | 2017-06-29 18:22 | CP.PCM.PN ---
Subjective - Date & Time of Evaluation Date of Evaluation: 06/29/17 Time of Evaluation: 17:00 - Subjective Subjective: feel ok stable no new c/o locall wound care Objective - Vital Signs/Intake and Output Vital Signs (last 24 hours): Temp Pulse Resp BP Pulse Ox 97.8 F 59 L 20 114/74 98 06/29/17 09:42 06/29/17 17:56 06/29/17 09:42 06/29/17 17:56 06/29/17 09:42 Intake and Output: 06/29/17 06/29/17 06:59 18:59 Intake Total 460 Output Total 1200 Balance -740 - Medications Medications: Current Medications Arformoterol Tartrate (Brovana) 15 mcg IH [id number] [facility] PRN Reason: Protocol Last Admin: 06/29/17 07:07 Dose: Not Given Budesonide (Pulmicort Respules) 0.5 mg IH [id number] [facility] PRN Reason: Protocol Last Admin: 06/29/17 07:07 Dose: Not Given Docusate Sodium (Colace) 100 mg PO BID [facility] PRN Reason: Protocol Last Admin: 06/29/17 17:55 Dose: 100 mg Furosemide (Lasix) 80 mg PO DAILY [facility] PRN Reason: Protocol Last Admin: 06/29/17 10:16 Dose: 80 mg Gabapentin (Neurontin) 300 mg PO QID [facility] PRN Reason: Protocol Last Admin: 06/29/17 17:52 Dose: 300 mg Hydralazine HCl (Apresoline) 10 mg PO QID [facility] Last Admin: 06/29/17 17:54 Dose: 10 mg Meropenem 1g/NS 100mL IVPB (Meropenem 1g/Ns 100ml Ivpb) 1 gm in 100 mls @ 100 mls/hr IVPB Q8 [facility] PRN Reason: Protocol Stop: 06/30/17 22:01 Last Admin: 06/29/17 14:04 Dose: 100 mls/hr Insulin Human Regular (Humulin R Med) 0 units SC ACHS [facility] PRN Reason: Protocol Last Admin: 06/29/17 17:53 Dose: Not Given Lactobacillus Acidophilus (Bacid Acidophilus) 1 cap PO BID [facility] PRN Reason: Protocol Last Admin: 06/29/17 17:55 Dose: 1 cap Levothyroxine Sodium (Synthroid) 75 mcg PO 0600 [facility] Last Admin: 06/29/17 05:00 Dose: 75 mcg Metoprolol Tartrate (Lopressor) 25 mg PO BID [facility] PRN Reason: Protocol Last Admin: 06/29/17 17:56 Dose: 25 mg Montelukast Sodium (Singulair) 10 mg PO DAILY [facility] PRN Reason: Protocol Last Admin: 06/29/17 10:17 Dose: 10 mg Nystatin (Nystop Topical Powder) 0 gm TOP BID [facility] PRN Reason: Protocol Stop: 07/02/17 10:00 Last Admin: 06/29/17 17:57 Dose: 1 applic Oxycodone HCl (Oxycodone Immediate Release Tab) 15 mg PO Q6H PRN; Protocol PRN Reason: Pain, severe (8-10) Last Admin: 06/29/17 12:09 Dose: 15 mg Oxycodone HCl (Oxycontin Extended Release Tab) 80 mg PO Q6 [facility] Last Admin: 06/29/17 17:51 Dose: 80 mg Pantoprazole Sodium (Protonix Ec Tab) 40 mg PO 0600 [facility] Last Admin: 06/29/17 05:00 Dose: 40 mg Potassium Chloride (K-Dur 20 Meq Er Tab) 20 meq PO DAILY [facility] PRN Reason: Protocol Last Admin: 06/29/17 10:15 Dose: 20 meq Trazodone HCl (Desyrel) 50 mg PO HS [facility] PRN Reason: Protocol Last Admin: 06/28/17 21:41 Dose: 50 mg Warfarin Sodium (Coumadin) 10 mg PO 1800 [facility] PRN Reason: Protocol Last Admin: 06/29/17 17:56 Dose: 10 mg - Labs Labs: 06/28/17 06:50 06/29/17 07:10 PT 30.8 Seconds (9.9-11.8) H* 06/29/17 07:10 INR 2.85 (0.93-1.08) H 06/29/17 07:10 - Constitutional Appears: Well - Head Exam Head Exam: ATRAUMATIC, NORMAL INSPECTION, NORMOCEPHALIC - Eye Exam Eye Exam: EOMI, Normal appearance, PERRL Pupil Exam: NORMAL ACCOMODATION, PERRL - ENT Exam ENT Exam: Mucous Membranes Moist, Normal Exam - Back Exam Back Exam: NORMAL INSPECTION, paraspinal tenderness - Neurological Exam Neurological Exam: Alert, Awake, Oriented x3 - Psychiatric Exam Psychiatric exam: Normal Affect, Normal Mood - Skin Skin Exam: Normal Color Additional comments: left leg ulcer wrapped with gauze Assessment and Plan (1) Obstructive sleep apnea Status: Acute (2) Acute renal failure (ARF) Status: Acute (3) Anxiety disorder due to general medical condition Status: Acute (4) Cellulitis Status: Acute (5) NATHAN (generalized anxiety disorder) Status: Acute (6) Infected stasis ulcer of left lower extremity Status: Acute (7) Left leg pain Status: Acute (8) Hyperglycemia Status: Chronic (9) Hypertension Status: Chronic (10) Hypothyroidism Status: Chronic (11) Low back pain Status: Chronic (12) Morbid obesity with BMI of 50.0-59.9, adult Status: Chronic - Assessment and Plan (Free Text) Plan: continue current treatment plane, inr ,check,
[2017-06-30] MEDS: oxyCODONE 15 mg Immediate Release Tab PO PRN ×4 (01:26→20:32)
--- NOTE | 2017-06-30 02:37 | PN ---
DATE: 06/29/2017 PULMONARY PROGRESS NOTE REFERRING PHYSICIAN: Dr. Zakiya Moreno. SUBJECTIVE: He is lying in the bed at 45 degrees. Not very compliant with the CPAP and BiPAP, tolerating the nebulizer treatment well. No headache, no rhinitis, no nausea, no vomiting, no diarrhea, still has leg swelling and oozing ulcer. Has Steven wrap on the both lower extremities. OBJECTIVE: GENERAL: In no acute distress. VITAL SIGNS: Temperature is 98, heart rate is 62, respiratory rate is 20, blood pressure 111.71, pulse ox is 98% on room air. HEENT: Moist mucous membranes. Crowded airway. Mallampati score is 4. NECK: Short thick neck. LUNGS: Has fair flow with few rhonchi. HEART: S1 and S2. ABDOMEN: Soft and nontender. No organomegaly. EXTREMITIES: Significant edema with Steven wraps and oozing ulcer. NEUROLOGIC: Awake, alert, follows simple commands. MEDICATIONS: He is on hydralazine 10 mg four times a day, lactobacillus 1 capsule twice a day, Brovana 15 mcg inhaled twice a day, Colace 100 mg twice a day, Coumadin 10 mg given tonight, trazodone 50 mg at bedtime, insulin coverage, potassium 20 mEq daily, Lasix 80 mg daily, metoprolol tartarate 25 mg twice a day, meropenem 1 g IV q. 8 hours, Neurontin 300 mg four times a day, oxycodone immediate release 50 mg q. 6 hours p.r.n., also OxyContin extended release 80 mg q. 6 hours, Protonix 40 mg daily, Pulmicort inhaled twice a day, Singulair 10 mg daily, and Synthroid 75 mcg daily. LABORATORY DATA: Reviewed. INR 2.85. Sodium 139, potassium 4.6, chloride 99, bicarbonate 32, BUN 49, creatinine 1.4, glucose 100, and calcium is 9.3. IMPRESSION AND PLAN: Recurrent lower extremity oozing ulcers with cellulitis and edema, deep venous thrombosis, history of IVC filter, history of pulmonary embolism, chronic obstructive lung disease, obstructive sleep apnea syndrome, chronic pain syndrome, activities of daily living dysfunction, mostly bedridden. Continue to encourage CPAP use. Keep head at 45 degrees. Careful with sedation. Patient understands risk of respiratory failure with sedative. Encourage him to use BiPAP at least while sleeping. Elevate lower extremity. Continue antibiotics as per infectious disease. Gastric prophylaxis, deep venous thrombosis prophylaxis, on anticoagulation. Thank you, and we will follow with you. Siri Santoyo MD
[2017-06-30] MEDS: Meropenem 1g/NS 100mL IVPB 1 GM/100 ML PIGGYBACK IVPB SCH ×3 (05:35→22:20)
[2017-06-30] MEDS: oxyCODONE 80 mg ER Tab (oxyCONTIN) PO SCH ×4 (05:35→23:22)
[2017-06-30] MEDS: Levothyroxine 75 MCG TAB PO SCH (05:36)
[2017-06-30] MEDS: Pantoprazole 40 mg EC Tab PO SCH (05:36)
[2017-06-30] MEDS: Budesonide 0.5 mg/2 ml Inhal Susp UD IH SCH ×2 (07:24→19:18)
[2017-06-30] MEDS: Arformoterol 15 mcg/2 ml Inh Sol IH SCH ×2 (07:24→19:18)
[2017-06-30] MEDS: Insulin Reg-MEDIUM-Coverage SC SCH ×4 (07:56→22:22)
[2017-06-30 08:11] LABS: INR 2.56 (0.93-1.08)
--- NOTE | 2017-06-30 08:36 | CP.PCM.PN ---
Subjective - Date & Time of Evaluation Date of Evaluation: 06/30/17 Time of Evaluation: 08:33 - Subjective Subjective: Podiatry Progress Note for Dr. Daniels 57 y/o male seen at bedside with attending Dr. Dainels this morning concerning bilateral venous stasis ulcerations, left worse than the right. Pt is AAO x3 and in NAD. Patient admits to significant pain in the left leg when he puts any pressure on the outside of the leg while in bed. Patient denies any acute events overnight. Pt has no other pedal complaints at this time. Patient denies N/V/F/D/C/SOB. Objective - Vital Signs/Intake and Output Vital Signs (last 24 hours): Temp Pulse Resp BP Pulse Ox 97.6 F 55 L 18 122/78 95 06/30/17 06:36 06/30/17 06:36 06/30/17 06:36 06/30/17 06:36 06/30/17 06:36 - Medications Medications: Current Medications Arformoterol Tartrate (Brovana) 15 mcg IH [id number] [facility] PRN Reason: Protocol Last Admin: 06/30/17 07:24 Dose: Not Given Budesonide (Pulmicort Respules) 0.5 mg IH [id number] [facility] PRN Reason: Protocol Last Admin: 06/30/17 07:24 Dose: Not Given Docusate Sodium (Colace) 100 mg PO BID [facility] PRN Reason: Protocol Last Admin: 06/29/17 17:55 Dose: 100 mg Furosemide (Lasix) 80 mg PO DAILY [facility] PRN Reason: Protocol Last Admin: 06/29/17 10:16 Dose: 80 mg Gabapentin (Neurontin) 300 mg PO QID [facility] PRN Reason: Protocol Last Admin: 06/29/17 21:30 Dose: 300 mg Hydralazine HCl (Apresoline) 10 mg PO QID [facility] Last Admin: 06/29/17 21:36 Dose: 10 mg Meropenem 1g/NS 100mL IVPB (Meropenem 1g/Ns 100ml Ivpb) 1 gm in 100 mls @ 100 mls/hr IVPB Q8 [facility] PRN Reason: Protocol Stop: 06/30/17 22:01 Last Admin: 06/30/17 05:35 Dose: 100 mls/hr Insulin Human Regular (Humulin R Med) 0 units SC ACHS [facility] PRN Reason: Protocol Last Admin: 06/30/17 07:56 Dose: Not Given Lactobacillus Acidophilus (Bacid Acidophilus) 1 cap PO BID [facility] PRN Reason: Protocol Last Admin: 06/29/17 17:55 Dose: 1 cap Levothyroxine Sodium (Synthroid) 75 mcg PO 0600 [facility] Last Admin: 06/30/17 05:36 Dose: 75 mcg Metoprolol Tartrate (Lopressor) 25 mg PO BID [facility] PRN Reason: Protocol Last Admin: 06/29/17 17:56 Dose: 25 mg Montelukast Sodium (Singulair) 10 mg PO DAILY [facility] PRN Reason: Protocol Last Admin: 06/29/17 10:17 Dose: 10 mg Mupirocin (Bactroban Ointment) 1 gm TOP 1000,2200 [facility] PRN Reason: Protocol Nystatin (Nystop Topical Powder) 0 gm TOP BID [facility] PRN Reason: Protocol Stop: 07/02/17 10:00 Last Admin: 06/29/17 17:57 Dose: 1 applic Oxycodone HCl (Oxycontin Extended Release Tab) 80 mg PO Q6 [facility] Last Admin: 06/30/17 05:35 Dose: 80 mg Oxycodone HCl (Oxycodone Immediate Release Tab) 15 mg PO Q6H PRN; Protocol PRN Reason: Pain, severe (8-10) Last Admin: 06/30/17 08:12 Dose: 15 mg Pantoprazole Sodium (Protonix Ec Tab) 40 mg PO 0600 [facility] Last Admin: 06/30/17 05:36 Dose: 40 mg Potassium Chloride (K-Dur 20 Meq Er Tab) 20 meq PO DAILY [facility] PRN Reason: Protocol Last Admin: 06/29/17 10:15 Dose: 20 meq Trazodone HCl (Desyrel) 50 mg PO HS [facility] PRN Reason: Protocol Last Admin: 06/29/17 21:30 Dose: 50 mg Warfarin Sodium (Coumadin) 10 mg PO 1800 [facility] PRN Reason: Protocol Last Admin: 06/29/17 17:56 Dose: 10 mg - Labs Labs: 06/28/17 06:50 06/29/17 07:10 PT 27.6 Seconds (9.9-11.8) H 06/30/17 07:54 INR 2.56 (0.93-1.08) H 06/30/17 07:54 - Constitutional Appears: Well, Non-toxic, No Acute Distress - Extremities Exam Additional comments: Bilateral lower extremity examination: Derm: Localized erythema to bilateral mid-calves, decreasing. Cellulitis localized along superficial ulcerations. Left: Diffuse open venous stasis ulcerations spanning the anterior and lateral aspects of mid-leg with significant amount of active sanguinous drainage noted to proximal lateral ulcerations. Wounds have a granular base with actively bleeding tissue. Malodor noted upon dressing change. No probe to bone, no purulence, no undermining. Right: Venous stasis ulceration to anterior distal 1/3 of leg measuring approximately 2.5cm x 1.8cm x 0.1cm with granular base, mild amount of serous drainage, no active bleeding, no undermining, no tracking, no probe to bone. Superficial ulceration with no active drainage noted to medial aspect of right leg with granular base, no purulence. Vasc: Non-palpable pedal pulses due to edema B/L. TG warm to warm, CFT < 3 sec to all digits, +1 pitting edema to B/L legs. Neuro: protective sensation grossly diminished MSK: significant tenderness on palpation of left lower extremity - Neurological Exam Neurological Exam: Alert, Awake, Oriented x3 - Psychiatric Exam Psychiatric exam: Normal Affect, Normal Mood Assessment and Plan - Assessment and Plan (Free Text) Assessment: 57 y/o male with bilateral venous stasis ulcerations Plan: Patient evaluated and seen at bedside with attending Dr. Daniels Labs and vitals reviewed; afebrile Continue IV abx per ID - Meropenem (Tobra discontinued at this time) Cleansed legs with normal saline and 4x4s left leg dressed with Telfa, Maxorb, ABDs, Kerlix and loosely wrapped YAYO bandages right leg dressed with optifoam Nursing orders placed for q12h dressing changes with Bactroban to wounds, Telfa , ABD pads, Kerlix and lightly wrapped YAYO bandages to B/L legs Wound culture from 06/28 results pending Podiatry will continue to monitor while patient remains in house
[2017-06-30] MEDS: Lactobacillus Acidophilus 500 MU Cap PO SCH ×2 (09:11→17:46)
[2017-06-30] MEDS: Potassium Chloride 20 mEq ER Tab PO SCH (09:16)
[2017-06-30] MEDS: Nystatin 100,000 Units/gm Topical Pow(15 gm) TOP SCH ×2 (09:19→17:47)
--- NOTE | 2017-06-30 12:04 | CP.PCM.PN ---
Subjective - Date & Time of Evaluation Date of Evaluation: 06/30/17 Time of Evaluation: 10:35 - Subjective Subjective: Comfortable, less pain in the legs, no fevers overnight. Objective - Vital Signs/Intake and Output Vital Signs (last 24 hours): Temp Pulse Resp BP Pulse Ox 97.6 F 55 L 18 122/78 95 06/30/17 06:36 06/30/17 06:36 06/30/17 06:36 06/30/17 06:36 06/30/17 06:36 - Medications Medications: Current Medications Arformoterol Tartrate (Brovana) 15 mcg IH [id number] [facility] PRN Reason: Protocol Last Admin: 06/30/17 07:24 Dose: Not Given Budesonide (Pulmicort Respules) 0.5 mg IH [id number] [facility] PRN Reason: Protocol Last Admin: 06/30/17 07:24 Dose: Not Given Docusate Sodium (Colace) 100 mg PO BID [facility] PRN Reason: Protocol Last Admin: 06/29/17 17:55 Dose: 100 mg Furosemide (Lasix) 80 mg PO DAILY [facility] PRN Reason: Protocol Last Admin: 06/29/17 10:16 Dose: 80 mg Gabapentin (Neurontin) 300 mg PO QID [facility] PRN Reason: Protocol Last Admin: 06/29/17 21:30 Dose: 300 mg Hydralazine HCl (Apresoline) 10 mg PO QID [facility] Last Admin: 06/29/17 21:36 Dose: 10 mg Meropenem 1g/NS 100mL IVPB (Meropenem 1g/Ns 100ml Ivpb) 1 gm in 100 mls @ 100 mls/hr IVPB Q8 [facility] PRN Reason: Protocol Stop: 06/30/17 22:01 Last Admin: 06/30/17 05:35 Dose: 100 mls/hr Insulin Human Regular (Humulin R Med) 0 units SC ACHS [facility] PRN Reason: Protocol Last Admin: 06/30/17 07:56 Dose: Not Given Lactobacillus Acidophilus (Bacid Acidophilus) 1 cap PO BID [facility] PRN Reason: Protocol Last Admin: 06/29/17 17:55 Dose: 1 cap Levothyroxine Sodium (Synthroid) 75 mcg PO 0600 [facility] Last Admin: 06/30/17 05:36 Dose: 75 mcg Metoprolol Tartrate (Lopressor) 25 mg PO BID [facility] PRN Reason: Protocol Last Admin: 06/29/17 17:56 Dose: 25 mg Montelukast Sodium (Singulair) 10 mg PO DAILY [facility] PRN Reason: Protocol Last Admin: 06/29/17 10:17 Dose: 10 mg Mupirocin (Bactroban Ointment) 1 gm TOP 1000,2200 [facility] PRN Reason: Protocol Nystatin (Nystop Topical Powder) 0 gm TOP BID [facility] PRN Reason: Protocol Stop: 07/02/17 10:00 Last Admin: 06/29/17 17:57 Dose: 1 applic Oxycodone HCl (Oxycontin Extended Release Tab) 80 mg PO Q6 [facility] Last Admin: 06/30/17 05:35 Dose: 80 mg Oxycodone HCl (Oxycodone Immediate Release Tab) 15 mg PO Q6H PRN; Protocol PRN Reason: Pain, severe (8-10) Last Admin: 06/30/17 08:12 Dose: 15 mg Pantoprazole Sodium (Protonix Ec Tab) 40 mg PO 0600 [facility] Last Admin: 06/30/17 05:36 Dose: 40 mg Potassium Chloride (K-Dur 20 Meq Er Tab) 20 meq PO DAILY [facility] PRN Reason: Protocol Last Admin: 06/29/17 10:15 Dose: 20 meq Trazodone HCl (Desyrel) 50 mg PO HS [facility] PRN Reason: Protocol Last Admin: 06/29/17 21:30 Dose: 50 mg Warfarin Sodium (Coumadin) 10 mg PO 1800 [facility] PRN Reason: Protocol Last Admin: 06/29/17 17:56 Dose: 10 mg - Labs Labs: 06/28/17 06:50 06/29/17 07:10 PT 27.6 Seconds (9.9-11.8) H 06/30/17 07:54 INR 2.56 (0.93-1.08) H 06/30/17 07:54 - Constitutional Appears: Non-toxic, No Acute Distress - Head Exam Head Exam: NORMAL INSPECTION - ENT Exam ENT Exam: Mucous Membranes Moist - Neck Exam Neck Exam: absent: Meningismus - Respiratory Exam Respiratory Exam: Decreased Breath Sounds - Cardiovascular Exam Cardiovascular Exam: +S1, +S2 - GI/Abdominal Exam GI & Abdominal Exam: Soft. absent: Tenderness - Extremities Exam Additional comments: both legs with dressings in place Assessment and Plan - Assessment and Plan (Free Text) Plan: Assessment skin and skin structure infection with bilateral leg infected ulcers in a patient with recurrent leg infections and venous stasis, now growing multidrug resistant Pseudomonas and ESBL E. coli; during previous admission he also grew MSSA but not this time S/P wound vacuum placement for upper thigh wounds history of Skin and skin structure infection of the left lower extremity with Pseudomonas, Enterococcus and MRSA in a patient with recurrent left leg infection Morbid obesity with BMI of 43 DM HTN COPD hyopthyroidism bilateral lower extremity swelling due to venous stasis Osteoarthritis Chronic pain syndrome Plan continue Merrem (day 9) - we have held Tobramycin because of mild acute renal insufficiency - should complete 10-[address] leg did not show osteomyelitis will continue to monitor clinically
--- NOTE | 2017-07-01 00:09 | PN ---
DATE: 06/30/2017 PULMONARY PROGRESS NOTE REFERRING PHYSICIAN: Dr. Gonzalez. SUBJECTIVE: He is lying in the bed, head at 45 degrees, participating in therapy today, but to walk few steps with shortness of breath, got dizzy though, no headache, no rhinitis, no nausea, no vomiting, no diarrhea, still has leg swelling with oozing ulcer. Has a Steven wrap. OBJECTIVE: GENERAL: In no acute distress. VITAL SIGNS: Temperature is 98, heart rate is 90, respiratory rate is 20, blood pressure 117/82, pulse ox is 95% on nasal cannula. HEENT: Moist mucous membranes. Crowded airway. Mallampati score is 4. NECK: Supple. No JVD. LUNGS: Has fair flow with few rhonchi. HEART: S1 and S2. ABDOMEN: Soft and nontender. No organomegaly. EXTREMITIES: Has oozing ulcer with Steven wraps in both lower extremities. NEUROLOGIC: Awake, alert, follows simple commands. MEDICATIONS: He is on hydralazine 10 mg four times a day, getting lactobacillus 1 capsule twice a day, Bactroban ointment to the affected area, Brovana inhaled twice a day, Colace 100 mg twice a day, Coumadin 10 mg will be given tonight, trazodone 50 mg daily, insulin coverage, potassium 20 mEq daily, Lasix 80 mg daily, metoprolol tartarate 25 mg twice a day, Neurontin 300 mg four times a day, oxycodone immediate release 50 mg q. 6 hours p.r.n., OxyContin extended release 80 mg q. 6 hours, Protonix 40 mg daily, Pulmicort inhaled twice a day, Singulair 10 mg daily, and Synthroid 75 mcg daily. LABORATORY DATA: Reviewed and noted. INR today is 2.56. Blood sugar 88. Microbiology, foot ulcer has Gram negative rods. IMPRESSION AND PLAN: Recurrent lower extremity infected ulcers with cellulitis, deep venous thrombosis, history of IVC filter, history of pulmonary embolism, chronic obstructive lung disease, obstructive sleep apnea syndrome, chronic pain syndrome, activities of daily living dysfunction. Pulmonary point of view, encourage BiPAP use, keep head at 45 degrees, bronchodilator, fall precaution, orthostatic hypotension precaution, IR in the morning, continue anticoagulation, gastric prophylaxis. Thank you and we will follow with you. Siri Santoyo MD [facility] # [id number]
[2017-07-01] MEDS: oxyCODONE 15 mg Immediate Release Tab PO PRN ×3 (04:15→21:17)
[2017-07-01] MEDS: Levothyroxine 75 MCG TAB PO SCH (05:18)
[2017-07-01] MEDS: oxyCODONE 80 mg ER Tab (oxyCONTIN) PO SCH ×4 (05:18→18:44)
[2017-07-01] MEDS: Pantoprazole 40 mg EC Tab PO SCH (05:18)
[2017-07-01] MEDS: Insulin Reg-MEDIUM-Coverage SC SCH ×4 (06:53→21:23)
[2017-07-01] MEDS: Arformoterol 15 mcg/2 ml Inh Sol IH SCH ×2 (07:15→19:53)
[2017-07-01] MEDS: Budesonide 0.5 mg/2 ml Inhal Susp UD IH SCH ×2 (07:15→19:53)
[2017-07-01] MEDS: Lactobacillus Acidophilus 500 MU Cap PO SCH ×2 (12:25→18:33)
[2017-07-01] MEDS: Potassium Chloride 20 mEq ER Tab PO SCH (12:27)
[2017-07-01] MEDS: Nystatin 100,000 Units/gm Topical Pow(15 gm) TOP SCH ×2 (12:29→18:00)
--- NOTE | 2017-07-01 15:30 | CP.PCM.PN ---
Subjective - Date & Time of Evaluation Date of Evaluation: 07/01/17 Time of Evaluation: 11:30 - Subjective Subjective: Comfortable in bed, not in distress, afebrile. Less pain in the left leg. Objective - Vital Signs/Intake and Output Vital Signs (last 24 hours): Temp Pulse Resp BP Pulse Ox 98.4 F 87 14 117/82 95 06/30/17 16:07 06/30/17 22:21 06/30/17 16:07 06/30/17 22:21 06/30/17 10:06 - Medications Medications: Current Medications Arformoterol Tartrate (Brovana) 15 mcg IH [id number] [facility] PRN Reason: Protocol Last Admin: 07/01/17 07:15 Dose: Not Given Budesonide (Pulmicort Respules) 0.5 mg IH [id number] [facility] PRN Reason: Protocol Last Admin: 07/01/17 07:15 Dose: Not Given Docusate Sodium (Colace) 100 mg PO BID [facility] PRN Reason: Protocol Last Admin: 06/30/17 17:46 Dose: 100 mg Furosemide (Lasix) 80 mg PO DAILY [facility] PRN Reason: Protocol Last Admin: 06/30/17 09:17 Dose: 80 mg Gabapentin (Neurontin) 300 mg PO QID [facility] PRN Reason: Protocol Last Admin: 06/30/17 22:20 Dose: 300 mg Hydralazine HCl (Apresoline) 10 mg PO QID [facility] Last Admin: 06/30/17 22:21 Dose: 10 mg Insulin Human Regular (Humulin R Med) 0 units SC ACHS [facility] PRN Reason: Protocol Last Admin: 07/01/17 06:53 Dose: Not Given Lactobacillus Acidophilus (Bacid Acidophilus) 1 cap PO BID [facility] PRN Reason: Protocol Last Admin: 06/30/17 17:46 Dose: 1 cap Levothyroxine Sodium (Synthroid) 75 mcg PO 0600 [facility] Last Admin: 07/01/17 05:18 Dose: 75 mcg Metoprolol Tartrate (Lopressor) 25 mg PO BID [facility] PRN Reason: Protocol Last Admin: 06/30/17 17:47 Dose: 25 mg Montelukast Sodium (Singulair) 10 mg PO DAILY [facility] PRN Reason: Protocol Last Admin: 06/30/17 09:19 Dose: 10 mg Mupirocin (Bactroban Ointment) 1 gm TOP 1000,2200 [facility] PRN Reason: Protocol Last Admin: 06/30/17 22:22 Dose: Not Given Nystatin (Nystop Topical Powder) 0 gm TOP BID [facility] PRN Reason: Protocol Stop: 07/02/17 10:00 Last Admin: 06/30/17 17:47 Dose: Not Given Oxycodone HCl (Oxycontin Extended Release Tab) 80 mg PO Q6 [facility] Last Admin: 07/01/17 05:18 Dose: 80 mg Oxycodone HCl (Oxycodone Immediate Release Tab) 15 mg PO Q6H PRN; Protocol PRN Reason: Pain, severe (8-10) Last Admin: 07/01/17 04:15 Dose: 15 mg Pantoprazole Sodium (Protonix Ec Tab) 40 mg PO 0600 [facility] Last Admin: 07/01/17 05:18 Dose: 40 mg Potassium Chloride (K-Dur 20 Meq Er Tab) 20 meq PO DAILY [facility] PRN Reason: Protocol Last Admin: 06/30/17 09:16 Dose: 20 meq Trazodone HCl (Desyrel) 50 mg PO HS [facility] PRN Reason: Protocol Last Admin: 06/30/17 22:21 Dose: 50 mg Warfarin Sodium (Coumadin) 10 mg PO 1800 [facility] PRN Reason: Protocol Last Admin: 06/30/17 17:47 Dose: 10 mg - Labs Labs: 06/28/17 06:50 06/29/17 07:10 PT 27.6 Seconds (9.9-11.8) H 06/30/17 07:54 INR 2.56 (0.93-1.08) H 06/30/17 07:54 - Constitutional Appears: Non-toxic, No Acute Distress - Head Exam Head Exam: NORMAL INSPECTION - Neck Exam Neck Exam: absent: Meningismus - Respiratory Exam Respiratory Exam: Decreased Breath Sounds - Cardiovascular Exam Cardiovascular Exam: +S1, +S2 - GI/Abdominal Exam GI & Abdominal Exam: Soft. absent: Tenderness - Extremities Exam Additional comments: left leg with dressings in place Assessment and Plan - Assessment and Plan (Free Text) Plan: Assessment skin and skin structure infection with bilateral leg infected ulcers (left greater than right) in a patient with recurrent leg infections and venous stasis , now growing multidrug resistant Pseudomonas and ESBL E. coli; during previous admission he also grew MSSA but not this time S/P wound vacuum placement for upper thigh wounds history of Skin and skin structure infection of the left lower extremity with Pseudomonas, Enterococcus and MRSA in a patient with recurrent left leg infection Morbid obesity with BMI of 43 DM HTN COPD hyopthyroidism bilateral lower extremity swelling due to venous stasis Osteoarthritis Chronic pain syndrome Plan continue Merrem (day 10) - we have held Tobramycin because of mild acute renal insufficiency - would prefer to complete [address] leg did not show osteomyelitis will continue to monitor clinically
--- NOTE | 2017-07-01 16:02 | CP.PCM.PN ---
<Dipti Loyd - Last Filed: 07/01/17 15:58> Subjective - Date & Time of Evaluation Date of Evaluation: 07/01/17 Time of Evaluation: 15:58 - Subjective Subjective: Podiatry Progress Note for Dr. Daniels 57 y/o male seen at bedside with attending Dr. Daniels concerning bilateral venous stasis ulcerations, left worse than the right. Pt is AAO x3 and in NAD. Patient admits to significant pain in the left leg when he puts any pressure on the outside of the leg while in bed. Patient denies any acute events overnight. Pt has no other pedal complaints at this time. Patient denies N/V/F/D/C/SOB. Objective - Vital Signs/Intake and Output Vital Signs (last 24 hours): Temp Pulse Resp BP Pulse Ox 98.3 F 66 20 124/76 96 07/01/17 10:53 07/01/17 14:07 07/01/17 10:53 07/01/17 14:07 07/01/17 10:53 - Medications Medications: Current Medications Arformoterol Tartrate (Brovana) 15 mcg IH [id number] [facility] PRN Reason: Protocol Last Admin: 07/01/17 07:15 Dose: Not Given Budesonide (Pulmicort Respules) 0.5 mg IH [id number] [facility] PRN Reason: Protocol Last Admin: 07/01/17 07:15 Dose: Not Given Docusate Sodium (Colace) 100 mg PO BID [facility] PRN Reason: Protocol Last Admin: 07/01/17 12:26 Dose: 100 mg Furosemide (Lasix) 80 mg PO DAILY [facility] PRN Reason: Protocol Last Admin: 07/01/17 12:28 Dose: 80 mg Gabapentin (Neurontin) 300 mg PO QID [facility] PRN Reason: Protocol Last Admin: 07/01/17 14:20 Dose: 300 mg Hydralazine HCl (Apresoline) 10 mg PO QID [facility] Last Admin: 07/01/17 14:07 Dose: 10 mg Meropenem 1g/NS 100mL IVPB (Meropenem 1g/Ns 100ml Ivpb) 1 gm in 100 mls @ 100 mls/hr IVPB Q8 [facility] PRN Reason: Protocol Stop: 07/08/17 15:31 Insulin Human Regular (Humulin R Med) 0 units SC ACHS [facility] PRN Reason: Protocol Last Admin: 07/01/17 12:26 Dose: 1 units Lactobacillus Acidophilus (Bacid Acidophilus) 1 cap PO BID [facility] PRN Reason: Protocol Last Admin: 07/01/17 12:25 Dose: 1 cap Levothyroxine Sodium (Synthroid) 75 mcg PO 0600 [facility] Last Admin: 07/01/17 05:18 Dose: 75 mcg Metoprolol Tartrate (Lopressor) 25 mg PO BID [facility] PRN Reason: Protocol Last Admin: 07/01/17 12:28 Dose: 25 mg Montelukast Sodium (Singulair) 10 mg PO DAILY [facility] PRN Reason: Protocol Last Admin: 07/01/17 12:30 Dose: 10 mg Mupirocin (Bactroban Ointment) 1 gm TOP 1000,2200 [facility] PRN Reason: Protocol Last Admin: 07/01/17 12:26 Dose: 1 applic Nystatin (Nystop Topical Powder) 0 gm TOP BID [facility] PRN Reason: Protocol Stop: 07/02/17 10:00 Last Admin: 07/01/17 12:29 Dose: 1 applic Oxycodone HCl (Oxycontin Extended Release Tab) 80 mg PO Q6 [facility] Last Admin: 07/01/17 12:29 Dose: 80 mg Oxycodone HCl (Oxycodone Immediate Release Tab) 15 mg PO Q6H PRN; Protocol PRN Reason: Pain, severe (8-10) Last Admin: 07/01/17 09:16 Dose: 15 mg Pantoprazole Sodium (Protonix Ec Tab) 40 mg PO 0600 [facility] Last Admin: 07/01/17 05:18 Dose: 40 mg Potassium Chloride (K-Dur 20 Meq Er Tab) 20 meq PO DAILY [facility] PRN Reason: Protocol Last Admin: 07/01/17 12:27 Dose: 20 meq Trazodone HCl (Desyrel) 50 mg PO HS [facility] PRN Reason: Protocol Last Admin: 06/30/17 22:21 Dose: 50 mg Warfarin Sodium (Coumadin) 10 mg PO 1800 [facility] PRN Reason: Protocol Last Admin: 06/30/17 17:47 Dose: 10 mg - Labs Labs: 06/28/17 06:50 06/29/17 07:10 PT 27.6 Seconds (9.9-11.8) H 06/30/17 07:54 INR 2.56 (0.93-1.08) H 06/30/17 07:54 - Constitutional Appears: Well, Non-toxic, No Acute Distress - Extremities Exam Additional comments: Bilateral lower extremity examination: Derm: Localized erythema to bilateral mid-calves, decreasing. Cellulitis localized along superficial ulcerations. Left: Diffuse open venous stasis ulcerations spanning the anterior and lateral aspects of mid-leg with significant amount of active sanguinous drainage noted to proximal lateral ulcerations. Wounds have a granular base with actively bleeding tissue. Malodor noted upon dressing change. No probe to bone, no purulence, no undermining. Right: Venous stasis ulceration to anterior distal 1/3 of leg measuring approximately 2.5cm x 1.8cm x 0.1cm with granular base, mild amount of serous drainage, no active bleeding, no undermining, no tracking, no probe to bone. Superficial ulceration with no active drainage noted to medial aspect of right leg with granular base, no purulence. Vasc: Non-palpable pedal pulses due to edema B/L. TG warm to warm, CFT < 3 sec to all digits, +1 pitting edema to B/L legs. Neuro: protective sensation grossly diminished MSK: significant tenderness on palpation of left lower extremity - Neurological Exam Neurological Exam: Alert, Awake, Oriented x3 - Psychiatric Exam Psychiatric exam: Normal Affect, Normal Mood Assessment and Plan - Assessment and Plan (Free Text) Assessment: 57 y/o male with bilateral venous stasis ulcerations Plan: Patient evaluated and seen at bedside with attending Dr. Daniels Labs and vitals reviewed; afebrile Continue IV abx per ID - Meropenem (Tobra discontinued at this time) Cleansed legs with normal saline and 4x4s left leg dressed with bactroban, Telfa, Maxorb, ABDs, Kerlix and loosely wrapped YAYO bandages right leg dressed with optifoam Nursing orders placed for q12h dressing changes with Bactroban to wounds, Telfa , ABD pads, Kerlix and lightly wrapped YAYO bandages to B/L legs Wound culture from 06/28 results pending- gram negative rods patient INR 2.56 - will not be going to OR for debridement at this time Podiatry will continue to monitor while patient remains in house <Preeti Daniels - Last Filed: 07/03/17 13:17> Objective - Vital Signs/Intake and Output Vital Signs (last 24 hours): Temp Pulse Resp BP Pulse Ox 98 F 59 L 18 129/76 96 07/03/17 10:00 07/03/17 11:38 07/03/17 10:00 07/03/17 11:38 07/02/17 16:00 - Medications Medications: Current Medications Acetaminophen (Tylenol 325mg Tab) 650 mg PO Q6H PRN; Protocol PRN Reason: Pain, Mild (1-3) Last Admin: 07/03/17 10:19 Dose: 650 mg Arformoterol Tartrate (Brovana) 15 mcg IH [id number] [facility]INE PRN Reason: Protocol Last Admin: 07/03/17 07:15 Dose: Not Given Budesonide (Pulmicort Respules) 0.5 mg IH [id number] [facility]INE PRN Reason: Protocol Last Admin: 07/03/17 07:15 Dose: Not Given Docusate Sodium (Colace) 100 mg PO BID [facility] PRN Reason: Protocol Last Admin: 07/03/17 10:27 Dose: 100 mg Fluticasone Propionate (Flonase) 1 actuation NS DAILY [facility] PRN Reason: Protocol Last Admin: 07/03/17 11:39 Dose: 1 applic Furosemide (Lasix) 80 mg PO DAILY [facility] PRN Reason: Protocol Last Admin: 07/03/17 10:22 Dose: 80 mg Gabapentin (Neurontin) 300 mg PO QID [facility] PRN Reason: Protocol Last Admin: 07/03/17 10:20 Dose: 300 mg Hydralazine HCl (Apresoline) 10 mg PO QID [facility] Last Admin: 07/03/17 11:38 Dose: Not Given Meropenem 1g/NS 100mL IVPB (Meropenem 1g/Ns 100ml Ivpb) 1 gm in 100 mls @ 100 mls/hr IVPB Q8 [facility] PRN Reason: Protocol Stop: 07/08/17 15:31 Last Admin: 07/03/17 05:17 Dose: 100 mls/hr Trimethoprim/Sulfamethoxazole (1,241 mg/ Dextrose) 1,000 mls @ 250 mls/hr IVPB Q12H [facility] Insulin Human Regular (Humulin R Med) 0 units SC ACHS [facility] PRN Reason: Protocol Last Admin: 07/03/17 12:50 Dose: Not Given Lactobacillus Acidophilus (Bacid Acidophilus) 1 cap PO BID [facility] PRN Reason: Protocol Last Admin: 07/03/17 10:21 Dose: 1 cap Levothyroxine Sodium (Synthroid) 75 mcg PO 0600 [facility] Last Admin: 07/03/17 05:18 Dose: 75 mcg Metoprolol Tartrate (Lopressor) 25 mg PO BID [facility] PRN Reason: Protocol Last Admin: 07/03/17 10:23 Dose: 25 mg Montelukast Sodium (Singulair) 10 mg PO DAILY [facility] PRN Reason: Protocol Last Admin: 07/03/17 10:21 Dose: 10 mg Mupirocin (Bactroban Ointment) 1 gm TOP 1000,2200 [facility] PRN Reason: Protocol Last Admin: 07/03/17 11:38 Dose: 1 applic Oxycodone HCl (Oxycodone Immediate Release Tab) 15 mg PO Q6H PRN; Protocol PRN Reason: Pain, severe (8-10) Last Admin: 07/03/17 11:36 Dose: 15 mg Oxycodone HCl (Oxycontin Extended Release Tab) 80 mg PO Q6 [facility] Last Admin: 07/03/17 12:35 Dose: 80 mg Pantoprazole Sodium (Protonix Ec Tab) 40 mg PO 0600 [facility] Last Admin: 07/03/17 05:18 Dose: 40 mg Trazodone HCl (Desyrel) 50 mg PO HS [facility] PRN Reason: Protocol Last Admin: 07/02/17 21:55 Dose: 50 mg Warfarin Sodium (Coumadin) 10 mg PO 1800 [facility] PRN Reason: Protocol Last Admin: 07/02/17 17:11 Dose: 10 mg - Labs Labs: 06/28/17 06:50 06/29/17 07:10 PT 33.5 Seconds (9.9-11.8) H* 07/03/17 06:45 INR 3.10 (0.93-1.08) H 07/03/17 06:45 Attending/Attestation - Attestation I have personally seen and examined this patient.: Yes I have fully participated in the care of the patient.: Yes I have reviewed all pertinent clinical information, including history, physical exam and plan: Yes
[2017-07-01] MEDS: Meropenem 1g/NS 100mL IVPB 1 GM/100 ML PIGGYBACK IVPB SCH ×2 (16:30→21:20)
--- NOTE | 2017-07-01 19:36 | PN ---
DATE: 07/01/2017 PULMONARY PROGRESS NOTE REFERRING PHYSICIAN: Dr. Gonzalez. SUBJECTIVE: The patient lying in the bed, head at 45 degrees. Night was unremarkable. Did not use BiPAP. No cough, no sputum production. Got short of breath with exhaustion. Able to walk with a walker feet. No abdominal pain. Still has leg swelling with oozing ulcers, has Steven wraps. OBJECTIVE: GENERAL: No acute distress. VITAL SIGNS: Temperature is 98, heart rate is 75, respiratory rate is 20, blood pressure 124/76, pulse ox 96% on room air. HEENT: Moist mucus membrane. Crowded airway. Mallampati score is 4. NECK: Supple. No JVD. LUNGS: Fair airflow with few rhonchi. HEART: S1 and S2. ABDOMEN: Soft, nontender. No organomegaly. EXTREMITIES: Has edema of the left lower extremity. Has oozing ulcer. Has Steven wrap. NEUROLOGIC: Awake and alert. Follow simple command. MEDICATIONS: He is on hydralazine 10 mg q.i.d., lactobacillus 1 capsule twice a day, Bactroban ointment to affected area twice a day, Brovana 15 mcg inhaled daily twice a day, Colace 100 mg twice day, Coumadin 10 mg will be given, trazodone 50 mg at bedtime, insulin coverage, potassium 20 mEq daily, Lasix 80 mg daily, metoprolol tartarate 25 mg twice a day, meropenem 1 g IV q. 8 hours, Neurontin 300 mg q.i.d., oxycodone immediate release 50 mg q. 6 hours p.r.n. for pain, OxyContin extended release 80 mg q. 6 hours, Protonix 40 mg daily, Singulair 10 mg daily, and Synthroid 75 mcg daily. LABORATORY DATA: Reviewed. Blood sugar is 88. IMPRESSION AND PLAN: Recurrent lower extremity infected ulcer and cellulitis. History of deep venous thrombosis, history of inferior vena cava filter, history pulmonary embolism, chronic obstructive lung disease, obstructive sleep apnea syndrome, chronic pain syndrome, opioid dependence, continue anticoagulation, INR in the morning, fall precautions, elevate lower extremity, encourage BiPAP use, and bronchodilators. Thank you and we will follow. Siri Santoyo MD [facility] # [id number]
[2017-07-02] MEDS: oxyCODONE 80 mg ER Tab (oxyCONTIN) PO SCH ×4 (00:49→18:57)
--- NOTE | 2017-07-02 02:37 | PN ---
DATE: 06/30/2017 SUBJECTIVE: The patient is stable, has no new complaint. PHYSICAL EXAMINATION: VITAL SIGNS: Temperature is 98.4, heart rate 90, blood pressure 127/79, respiration 15. HEENT: Head and neck normal. No JVD. No thyromegaly. CHEST: Clear air entry. CARDIAC: First sound and second sound normal. ABDOMEN: Morbidly obese. EXTREMITIES: Reveals left leg cellulitis covered with gauze. NEUROLOGIC: The patient is bedridden due to his morbid obesity and difficult ambulation, but he move all extremities. LABORATORY DATA: Noted for INR on 06/30/2017, 2.56. IMPRESSION AND PLAN: 1. Left leg cellulitis. Continue IV antibiotic. The patient currently on meropenem and continue local wound care by Dr. Daniels. 2. Chronic back pain and severe arthritis. Continue oxycodone, OxyContin, and Neurontin, stable. 3. Hypertension. The patient is stable on hydralazine 10 mg q.i.d. He is getting also metoprolol 25 b.i.d. 4. Renal insufficiency. The patient improved. We will discontinue Cozaar. Continue current blood pressure medications. Monitor his labs. 5. Chronic obstructive pulmonary disease. COPD. History of right-sided heart failure. 6. Hypothyroidism. 7. Chronic deep venous thrombosis, chronic osteoarthritis, [place] filter. Continue Coumadin. Continue levothyroxine. Continue inhaled bronchodilators, Brovana and Pulmicort. I will follow up clinically Yvon Gonzalez MD
--- NOTE | 2017-07-02 02:40 | PN ---
DATE: SUBJECTIVE: Omer Rome is a 57-year-old male who on the transitional care unit seems stable, comfortable and in no distress. Pain seems controlled. PHYSICAL EXAMINATION VITAL SIGNS: Temperature 98.1, heart rate 72, blood pressure 137/63, respirations 20, saturations 99%. HEAD AND NECK: Normal. No JVD. No thyromegaly. CHEST: Clear. Good air entry. CARDIAC: First and second sounds normal. ABDOMEN: Morbidly obese. EXTREMITIES: Edema, left leg ulcer covered with gauze with skin discolorations. NEUROLOGIC: The patient moves all extremities. LABORATORY DATA: The patient had no labs done today. No INR was done. IMPRESSION: 1. Acute left leg cellulitis. CT of the leg shows no evidence of osteomyelitis. Continue meropenem IV antibiotic and local wound care Dr. Daniels. 2. Obstructive sleep apnea and chronic obstructive pulmonary disease. Continue handheld bronchodilator and BiPAP machine. 3. Chronic osteoarthritis and back pain, history of left knee replacement. Continue oxycodone, OxyContin. 4. Hypothyroidism. 5. Chronic deep venous thrombosis. 6. Hypertension. 7. History of right-sided heart failure. 8. Diabetes type 2. PLAN: Continue current management. Follow up clinically. Yvon Gonzalez MD
[2017-07-02] MEDS: oxyCODONE 15 mg Immediate Release Tab PO PRN ×4 (03:28→23:15)
[2017-07-02] MEDS: Meropenem 1g/NS 100mL IVPB 1 GM/100 ML PIGGYBACK IVPB SCH ×3 (05:23→21:46)
[2017-07-02] MEDS: Pantoprazole 40 mg EC Tab PO SCH (05:24)
[2017-07-02] MEDS: Levothyroxine 75 MCG TAB PO SCH (05:24)
[2017-07-02] MEDS: Budesonide 0.5 mg/2 ml Inhal Susp UD IH SCH ×2 (07:18→20:00)
[2017-07-02] MEDS: Arformoterol 15 mcg/2 ml Inh Sol IH SCH ×2 (07:18→20:00)
[2017-07-02 08:08] LABS: INR 2.56 (0.93-1.08)
[2017-07-02] MEDS: Insulin Reg-MEDIUM-Coverage SC SCH ×4 (08:17→22:28)
[2017-07-02] MEDS: Lactobacillus Acidophilus 500 MU Cap PO SCH ×2 (10:31→17:11)
[2017-07-02] MEDS: Potassium Chloride 20 mEq ER Tab PO SCH (10:32)
[2017-07-02] MEDS: Nystatin 100,000 Units/gm Topical Pow(15 gm) TOP SCH (10:33)
--- NOTE | 2017-07-02 10:58 | CP.PCM.PN ---
<Dipti Loyd - Last Filed: 07/02/17 10:56> Subjective - Date & Time of Evaluation Date of Evaluation: 07/02/17 Time of Evaluation: 10:56 - Subjective Subjective: Podiatry Progress Note for Dr. Daniels 57 y/o male seen at bedside concerning bilateral venous stasis ulcerations, left worse than the right. Pt is AAO x3 and in NAD. Patient admits to significant pain in the left leg when he puts any pressure on the outside of the leg while in bed. Patient denies any acute events overnight. Pt has no other pedal complaints at this time. Patient denies N/V/F/D/C/SOB. Objective - Vital Signs/Intake and Output Vital Signs (last 24 hours): Temp Pulse Resp BP Pulse Ox 98.1 F 62 20 118/78 99 07/01/17 16:17 07/02/17 10:33 07/01/17 16:17 07/02/17 10:33 07/01/17 16:17 Intake and Output: 07/02/17 07/02/17 06:59 18:59 Intake Total 660 Output Total 1500 Balance -840 - Medications Medications: Current Medications Arformoterol Tartrate (Brovana) 15 mcg IH [id number] SANDRINE PRN Reason: Protocol Last Admin: 07/02/17 07:18 Dose: Not Given Budesonide (Pulmicort Respules) 0.5 mg IH [id number] [facility]INE PRN Reason: Protocol Last Admin: 07/02/17 07:18 Dose: Not Given Docusate Sodium (Colace) 100 mg PO BID [facility]INE PRN Reason: Protocol Last Admin: 07/02/17 10:32 Dose: 100 mg Furosemide (Lasix) 80 mg PO DAILY [facility] PRN Reason: Protocol Last Admin: 07/02/17 10:33 Dose: 80 mg Gabapentin (Neurontin) 300 mg PO QID [facility] PRN Reason: Protocol Last Admin: 07/02/17 10:31 Dose: 300 mg Hydralazine HCl (Apresoline) 10 mg PO QID [facility] Last Admin: 07/02/17 10:31 Dose: 10 mg Meropenem 1g/NS 100mL IVPB (Meropenem 1g/Ns 100ml Ivpb) 1 gm in 100 mls @ 100 mls/hr IVPB Q8 [facility] PRN Reason: Protocol Stop: 07/08/17 15:31 Last Admin: 07/02/17 05:23 Dose: 100 mls/hr Insulin Human Regular (Humulin R Med) 0 units SC ACHS [facility] PRN Reason: Protocol Last Admin: 07/02/17 08:17 Dose: Not Given Lactobacillus Acidophilus (Bacid Acidophilus) 1 cap PO BID [facility]INE PRN Reason: Protocol Last Admin: 07/02/17 10:31 Dose: 1 cap Levothyroxine Sodium (Synthroid) 75 mcg PO 0600 [facility] Last Admin: 07/02/17 05:24 Dose: 75 mcg Metoprolol Tartrate (Lopressor) 25 mg PO BID [facility] PRN Reason: Protocol Last Admin: 07/02/17 10:33 Dose: 25 mg Montelukast Sodium (Singulair) 10 mg PO DAILY [facility] PRN Reason: Protocol Last Admin: 07/02/17 10:34 Dose: 10 mg Mupirocin (Bactroban Ointment) 1 gm TOP 1000,2200 [facility]INE PRN Reason: Protocol Last Admin: 07/02/17 10:31 Dose: 1 applic Oxycodone HCl (Oxycodone Immediate Release Tab) 15 mg PO Q6H PRN; Protocol PRN Reason: Pain, severe (8-10) Last Admin: 07/02/17 10:34 Dose: 15 mg Oxycodone HCl (Oxycontin Extended Release Tab) 80 mg PO Q6 [facility] Last Admin: 07/02/17 05:24 Dose: 80 mg Pantoprazole Sodium (Protonix Ec Tab) 40 mg PO 0600 [facility] Last Admin: 07/02/17 05:24 Dose: 40 mg Potassium Chloride (K-Dur 20 Meq Er Tab) 20 meq PO DAILY [facility] PRN Reason: Protocol Last Admin: 07/02/17 10:32 Dose: 20 meq Trazodone HCl (Desyrel) 50 mg PO HS [facility] PRN Reason: Protocol Last Admin: 07/01/17 21:19 Dose: 50 mg Warfarin Sodium (Coumadin) 10 mg PO 1800 [facility] PRN Reason: Protocol Last Admin: 07/01/17 18:34 Dose: 10 mg - Labs Labs: 06/28/17 06:50 06/29/17 07:10 PT 27.6 Seconds (9.9-11.8) H 07/02/17 07:50 INR 2.56 (0.93-1.08) H 07/02/17 07:50 - Constitutional Appears: Well, Non-toxic, No Acute Distress - Extremities Exam Additional comments: Bilateral lower extremity examination: Derm: Localized erythema to bilateral mid-calves, decreasing. Cellulitis localized along superficial ulcerations. Left: Diffuse open venous stasis ulcerations spanning the anterior and lateral aspects of mid-leg with significant amount of active sanguinous drainage noted to proximal lateral ulcerations. Wounds have a granular base with actively bleeding tissue. Malodor noted upon dressing change. No probe to bone, no purulence, no undermining. Right: Venous stasis ulceration to anterior distal 1/3 of leg measuring approximately 2.5cm x 1.8cm x 0.1cm with granular base, mild amount of serous drainage, no active bleeding, no undermining, no tracking, no probe to bone. Superficial ulceration with no active drainage noted to medial aspect of right leg with granular base, no purulence. Vasc: Non-palpable pedal pulses due to edema B/L. TG warm to warm, CFT < 3 sec to all digits, +1 pitting edema to B/L legs. Neuro: protective sensation grossly diminished MSK: significant tenderness on palpation of left lower extremity - Neurological Exam Neurological Exam: Alert, Awake, Oriented x3 - Psychiatric Exam Psychiatric exam: Normal Affect, Normal Mood Assessment and Plan - Assessment and Plan (Free Text) Assessment: 57 y/o male with bilateral lower extremity venous stasis ulcerations Plan: Patient evaluated and seen at bedside with attending Dr. Daniels Labs and vitals reviewed; afebrile Continue IV abx per ID - Meropenem Cleansed legs with normal saline and 4x4s left leg dressed with bactroban, Telfa, Maxorb, ABDs, Kerlix and loosely wrapped YAOY bandages right leg dressed with optifoam Nursing orders placed for q12h dressing changes with Bactroban to wounds, Telfa , ABD pads, Kerlix and lightly wrapped YAYO bandages to B/L legs Wound culture acinetobacter baumanii Podiatry will continue to monitor while patient remains in house <Preeti Daniels - Last Filed: 07/03/17 13:18> Objective - Vital Signs/Intake and Output Vital Signs (last 24 hours): Temp Pulse Resp BP Pulse Ox 98 F 59 L 18 129/76 96 07/03/17 10:00 07/03/17 11:38 07/03/17 10:00 07/03/17 11:38 07/02/17 16:00 - Medications Medications: Current Medications Acetaminophen (Tylenol 325mg Tab) 650 mg PO Q6H PRN; Protocol PRN Reason: Pain, Mild (1-3) Last Admin: 07/03/17 10:19 Dose: 650 mg Arformoterol Tartrate (Brovana) 15 mcg IH [id number] SANDRINE PRN Reason: Protocol Last Admin: 07/03/17 07:15 Dose: Not Given Budesonide (Pulmicort Respules) 0.5 mg IH [id number] [facility]DRINE PRN Reason: Protocol Last Admin: 07/03/17 07:15 Dose: Not Given Docusate Sodium (Colace) 100 mg PO BID [facility]INE PRN Reason: Protocol Last Admin: 07/03/17 10:27 Dose: 100 mg Fluticasone Propionate (Flonase) 1 actuation NS DAILY [facility]INE PRN Reason: Protocol Last Admin: 07/03/17 11:39 Dose: 1 applic Furosemide (Lasix) 80 mg PO DAILY [facility]INE PRN Reason: Protocol Last Admin: 07/03/17 10:22 Dose: 80 mg Gabapentin (Neurontin) 300 mg PO QID [facility]INE PRN Reason: Protocol Last Admin: 07/03/17 10:20 Dose: 300 mg Hydralazine HCl (Apresoline) 10 mg PO QID [facility] Last Admin: 07/03/17 11:38 Dose: Not Given Meropenem 1g/NS 100mL IVPB (Meropenem 1g/Ns 100ml Ivpb) 1 gm in 100 mls @ 100 mls/hr IVPB Q8 [facility] PRN Reason: Protocol Stop: 07/08/17 15:31 Last Admin: 07/03/17 05:17 Dose: 100 mls/hr Trimethoprim/Sulfamethoxazole (1,241 mg/ Dextrose) 1,000 mls @ 250 mls/hr IVPB Q12H [facility] Insulin Human Regular (Humulin R Med) 0 units SC ACHS [facility]DRINE PRN Reason: Protocol Last Admin: 07/03/17 12:50 Dose: Not Given Lactobacillus Acidophilus (Bacid Acidophilus) 1 cap PO BID [facility]INE PRN Reason: Protocol Last Admin: 07/03/17 10:21 Dose: 1 cap Levothyroxine Sodium (Synthroid) 75 mcg PO 0600 [facility] Last Admin: 07/03/17 05:18 Dose: 75 mcg Metoprolol Tartrate (Lopressor) 25 mg PO BID [facility] PRN Reason: Protocol Last Admin: 07/03/17 10:23 Dose: 25 mg Montelukast Sodium (Singulair) 10 mg PO DAILY [facility] PRN Reason: Protocol Last Admin: 07/03/17 10:21 Dose: 10 mg Mupirocin (Bactroban Ointment) 1 gm TOP 1000,2200 [facility] PRN Reason: Protocol Last Admin: 07/03/17 11:38 Dose: 1 applic Oxycodone HCl (Oxycodone Immediate Release Tab) 15 mg PO Q6H PRN; Protocol PRN Reason: Pain, severe (8-10) Last Admin: 07/03/17 11:36 Dose: 15 mg Oxycodone HCl (Oxycontin Extended Release Tab) 80 mg PO Q6 [facility] Last Admin: 07/03/17 12:35 Dose: 80 mg Pantoprazole Sodium (Protonix Ec Tab) 40 mg PO 0600 [facility] Last Admin: 07/03/17 05:18 Dose: 40 mg Trazodone HCl (Desyrel) 50 mg PO HS [facility] PRN Reason: Protocol Last Admin: 07/02/17 21:55 Dose: 50 mg Warfarin Sodium (Coumadin) 10 mg PO 1800 [facility] PRN Reason: Protocol Last Admin: 07/02/17 17:11 Dose: 10 mg - Labs Labs: 06/28/17 06:50 06/29/17 07:10 PT 33.5 Seconds (9.9-11.8) H* 07/03/17 06:45 INR 3.10 (0.93-1.08) H 07/03/17 06:45 Attending/Attestation - Attestation I have personally seen and examined this patient.: Yes I have fully participated in the care of the patient.: Yes I have reviewed all pertinent clinical information, including history, physical exam and plan: Yes
--- NOTE | 2017-07-02 21:40 | PN ---
DATE: 07/02/2017 SUBJECTIVE: The patient is in bed, in no acute distress. Nontoxic. No fevers. No chills. PHYSICAL EXAMINATION: VITAL SIGNS: Temperature is 98, blood pressure is 120/70 and respiratory rate 16. HEENT: Unremarkable. NECK: Supple. LUNGS: Have decreased breath sounds. HEART: Normal S1 and S2. ABDOMEN: Soft. LABORATORY DATA: Reveals a white count of 5.2, hemoglobin is 11. Chemistries are noted. Microbiology is noted. ASSESSMENT AND PLAN: A 57-year-old male with morbid obesity, admitted with left leg skin and skin soft tissue infection, recurrent leg infection, venostasis, multidrug resistant pseudomonas, extended-spectrum beta-lactamase Escherichia coli and the patient has had MRSA in the past and the patient with diabetes, hypertension, chronic obstructive pulmonary disease, currently on meropenem, day #11. Would complete 10-14 days. Ralph Blanco MD
[2017-07-03] MEDS: oxyCODONE 80 mg ER Tab (oxyCONTIN) PO SCH ×4 (00:10→17:57)
--- NOTE | 2017-07-03 03:50 | PN ---
DATE: 07/02/2017 PULMONARY PROGRESS NOTE REFERRING PHYSICIAN: Dr. Gonzalez. SUBJECTIVE: The patient lying in the bed, head at 45 degrees. Doing well in therapy. Did not walk today though. No headaches. No rhinitis. No nausea. No vomiting. No diarrhea. Still oozing ulcer of the lower extremity with dressing. OBJECTIVE: GENERAL: In no acute distress. VITAL SIGNS: Temperature is 98, heart rate 62, respiratory rate is 20, blood pressure 107/64, pulse ox 96% on room air. HEENT: Moist mucus membrane. Crowded airway. Mallampati score is 4. NECK: Supple. No JVD. LUNGS: Fair airflow with few rhonchi. HEART: S1 and S2. ABDOMEN: Soft, nontender. No organomegaly. EXTREMITIES: Oozing ulcer over the lower extremity with Steven wrap. NEUROLOGIC: Awake and alert. Follows simple command. MEDICATIONS: He is on hydralazine 10 mg q.i.d., lactobacillus 1 capsule twice a day, Bactroban ointment to affected area, Brovana 15 mcg inhaled twice a day, Colace 100 mg twice day, Coumadin 10 mg given tonight, trazodone 50 mg at bedtime, insulin coverage, potassium 20 mEq daily, Lasix 80 mg daily, meropenem 1 g IV q. 8 hours, oxycodone immediate release 50 mg q. 6 hours p.r.n., oxycodone extended release 80 mg q. 6 hours, Protonix 40 mg daily, Pulmicort inhaled twice a day, Singulair 10 mg daily and Synthroid 75 mcg daily. LABORATORY DATA: Show INR today is 2.56, glucose 102. IMPRESSION AND PLAN: Recurrent lower extremity infected ulcers and cellulitis, history of deep venous thrombosis, pulmonary embolism, history of inferior vena cava filter, chronic obstructive lung disease, obstructive sleep apnea syndrome, chronic pain syndrome, opioid dependence. Pulmonary point of view, doing okay. Continue bronchodilator. Keep head at 45 degrees,antibiotics as per infectious disease and diuretics. Continue bronchodilator, encouraged BiPAP use and continue therapy. Thank you and we will follow with you. Siri Santoyo MD
[2017-07-03] MEDS: oxyCODONE 15 mg Immediate Release Tab PO PRN ×4 (05:16→22:20)
[2017-07-03] MEDS: Meropenem 1g/NS 100mL IVPB 1 GM/100 ML PIGGYBACK IVPB SCH ×3 (05:17→21:44)
[2017-07-03] MEDS: Levothyroxine 75 MCG TAB PO SCH (05:18)
[2017-07-03] MEDS: Pantoprazole 40 mg EC Tab PO SCH (05:18)
[2017-07-03] MEDS: Insulin Reg-MEDIUM-Coverage SC SCH ×4 (06:54→22:45)
[2017-07-03] MEDS: Budesonide 0.5 mg/2 ml Inhal Susp UD IH SCH ×2 (07:15→19:57)
[2017-07-03] MEDS: Arformoterol 15 mcg/2 ml Inh Sol IH SCH ×2 (07:15→19:57)
[2017-07-03 08:18] LABS: INR 3.1 (0.93-1.08)
[2017-07-03] MEDS ORDERED: Tmp-Smz 16 mg-80 mg/ml Inj IVPB SCH (09:15)
[2017-07-03] MEDS: Lactobacillus Acidophilus 500 MU Cap PO SCH ×2 (10:21→17:18)
[2017-07-03] MEDS ORDERED: DEXTROSE 5% IVPB SCH (11:30)
[2017-07-03] MEDS ORDERED: SULFAMETHOXAZOLE IVPB SCH (11:30)
[2017-07-03] MEDS ORDERED: WATER IVPB SCH (11:30)
[2017-07-03] MEDS ORDERED: TRIMETHOPRIM IVPB SCH (11:30)
[2017-07-03] MEDS: Fluticasone Nasal 50 mcg/Spray NS SCH (11:39)
--- NOTE | 2017-07-03 11:45 | CP.PCM.PN ---
<Dipti Loyd - Last Filed: 07/03/17 11:44> Subjective - Date & Time of Evaluation Date of Evaluation: 07/03/17 Time of Evaluation: 11:44 - Subjective Subjective: Podiatry Progress Note for Dr. Zavaleta 57 y/o male seen at bedside concerning bilateral venous stasis ulcerations, left worse than the right. Pt is AAO x3 and in NAD. Patient admits to significant pain in the left leg when he puts any pressure on the outside of the leg while in bed. Patient denies any acute events overnight. Pt has no other pedal complaints at this time. Patient denies N/V/F/D/C/SOB. Objective - Vital Signs/Intake and Output Vital Signs (last 24 hours): Temp Pulse Resp BP Pulse Ox 98.1 F 59 L 18 129/76 96 07/02/17 16:00 07/03/17 11:38 07/02/17 16:00 07/03/17 11:38 07/02/17 16:00 - Medications Medications: Current Medications Acetaminophen (Tylenol 325mg Tab) 650 mg PO Q6H PRN; Protocol PRN Reason: Pain, Mild (1-3) Last Admin: 07/03/17 10:19 Dose: 650 mg Arformoterol Tartrate (Brovana) 15 mcg IH [id number] [facility] PRN Reason: Protocol Last Admin: 07/03/17 07:15 Dose: Not Given Budesonide (Pulmicort Respules) 0.5 mg IH [id number] [facility] PRN Reason: Protocol Last Admin: 07/03/17 07:15 Dose: Not Given Docusate Sodium (Colace) 100 mg PO BID [facility] PRN Reason: Protocol Last Admin: 07/03/17 10:27 Dose: 100 mg Fluticasone Propionate (Flonase) 1 actuation NS DAILY [facility] PRN Reason: Protocol Last Admin: 07/03/17 11:39 Dose: 1 applic Furosemide (Lasix) 80 mg PO DAILY [facility] PRN Reason: Protocol Last Admin: 07/03/17 10:22 Dose: 80 mg Gabapentin (Neurontin) 300 mg PO QID [facility] PRN Reason: Protocol Last Admin: 07/03/17 10:20 Dose: 300 mg Hydralazine HCl (Apresoline) 10 mg PO QID [facility] Last Admin: 07/03/17 11:38 Dose: Not Given Meropenem 1g/NS 100mL IVPB (Meropenem 1g/Ns 100ml Ivpb) 1 gm in 100 mls @ 100 mls/hr IVPB Q8 [facility] PRN Reason: Protocol Stop: 07/08/17 15:31 Last Admin: 07/03/17 05:17 Dose: 100 mls/hr Trimethoprim/Sulfamethoxazole (1,241 mg/ Dextrose) 1,000 mls @ 250 mls/hr IVPB Q12H [facility] Insulin Human Regular (Humulin R Med) 0 units SC ACHS [facility] PRN Reason: Protocol Last Admin: 07/03/17 06:54 Dose: Not Given Lactobacillus Acidophilus (Bacid Acidophilus) 1 cap PO BID [facility] PRN Reason: Protocol Last Admin: 07/03/17 10:21 Dose: 1 cap Levothyroxine Sodium (Synthroid) 75 mcg PO 0600 [facility] Last Admin: 07/03/17 05:18 Dose: 75 mcg Metoprolol Tartrate (Lopressor) 25 mg PO BID [facility] PRN Reason: Protocol Last Admin: 07/03/17 10:23 Dose: 25 mg Montelukast Sodium (Singulair) 10 mg PO DAILY [facility] PRN Reason: Protocol Last Admin: 07/03/17 10:21 Dose: 10 mg Mupirocin (Bactroban Ointment) 1 gm TOP 1000,2200 [facility] PRN Reason: Protocol Last Admin: 07/03/17 11:38 Dose: 1 applic Oxycodone HCl (Oxycodone Immediate Release Tab) 15 mg PO Q6H PRN; Protocol PRN Reason: Pain, severe (8-10) Last Admin: 07/03/17 11:36 Dose: 15 mg Oxycodone HCl (Oxycontin Extended Release Tab) 80 mg PO Q6 [facility] Last Admin: 07/03/17 06:43 Dose: 80 mg Pantoprazole Sodium (Protonix Ec Tab) 40 mg PO 0600 [facility] Last Admin: 07/03/17 05:18 Dose: 40 mg Trazodone HCl (Desyrel) 50 mg PO HS [facility] PRN Reason: Protocol Last Admin: 07/02/17 21:55 Dose: 50 mg Warfarin Sodium (Coumadin) 10 mg PO 1800 [facility] PRN Reason: Protocol Last Admin: 09/07/17 17:11 Dose: 10 mg - Labs Labs: 06/28/17 06:50 06/29/17 07:10 PT 33.5 Seconds (9.9-11.8) H* 07/03/17 06:45 INR 3.10 (0.93-1.08) H 07/03/17 06:45 - Constitutional Appears: Well, Non-toxic, No Acute Distress - Extremities Exam Additional comments: Bilateral lower extremity examination: Derm: Localized erythema to bilateral mid-calves, decreasing. Cellulitis localized along superficial ulcerations. Left: Diffuse open venous stasis ulcerations spanning the anterior and lateral aspects of mid-leg with significant amount of active sanguinous drainage noted to proximal lateral ulcerations. Wounds have a granular base with actively bleeding tissue. Malodor noted upon dressing change. No probe to bone, no purulence, no undermining. Right: Venous stasis ulceration to anterior distal 1/3 of leg measuring approximately 2.5cm x 1.8cm x 0.1cm with granular base, mild amount of serous drainage, no active bleeding, no undermining, no tracking, no probe to bone. Superficial ulceration with no active drainage noted to medial aspect of right leg with granular base, no purulence. Vasc: Non-palpable pedal pulses due to edema B/L. TG warm to warm, CFT < 3 sec to all digits, +1 pitting edema to B/L legs. Neuro: protective sensation grossly diminished MSK: significant tenderness on palpation of left lower extremity - Neurological Exam Neurological Exam: Alert, Awake, Oriented x3 - Psychiatric Exam Psychiatric exam: Normal Affect, Normal Mood Assessment and Plan - Assessment and Plan (Free Text) Assessment: 57 y/o male with bilateral lower extremity venous stasis ulcerations Plan: Patient evaluated and seen at bedside with attending Dr. Zavaleta Labs and vitals reviewed; afebrile Continue IV abx per ID - Meropenem Cleansed legs with normal saline and 4x4s left leg dressed with bactroban, Telfa, Maxorb, ABDs, Kerlix and loosely wrapped YAYO bandages right leg dressed with optifoam Nursing orders placed for q12h dressing changes with Bactroban to wounds, Telfa , ABD pads, Kerlix and lightly wrapped YAYO bandages to B/L legs Wound culture acinetobacter baumanii Podiatry will continue to monitor while patient remains in house <Parish Zavaleta - Last Filed: 07/03/17 15:53> Objective - Vital Signs/Intake and Output Vital Signs (last 24 hours): Temp Pulse Resp BP Pulse Ox 98 F 63 18 119/70 96 07/03/17 10:00 07/03/17 13:18 07/03/17 10:00 07/03/17 13:18 07/02/17 16:00 - Medications Medications: Current Medications Acetaminophen (Tylenol 325mg Tab) 650 mg PO Q6H PRN; Protocol PRN Reason: Pain, Mild (1-3) Last Admin: 07/03/17 10:19 Dose: 650 mg Arformoterol Tartrate (Brovana) 15 mcg IH [id number] [facility] PRN Reason: Protocol Last Admin: 07/03/17 07:15 Dose: Not Given Budesonide (Pulmicort Respules) 0.5 mg IH [id number] [facility] PRN Reason: Protocol Last Admin: 07/03/17 07:15 Dose: Not Given Docusate Sodium (Colace) 100 mg PO BID [facility] PRN Reason: Protocol Last Admin: 07/03/17 10:27 Dose: 100 mg Fluticasone Propionate (Flonase) 1 actuation NS DAILY [facility] PRN Reason: Protocol Last Admin: 07/03/17 11:39 Dose: 1 applic Furosemide (Lasix) 80 mg PO DAILY [facility] PRN Reason: Protocol Last Admin: 07/03/17 10:22 Dose: 80 mg Gabapentin (Neurontin) 300 mg PO QID [facility] PRN Reason: Protocol Last Admin: 07/03/17 13:19 Dose: 300 mg Hydralazine HCl (Apresoline) 10 mg PO QID [facility] Last Admin: 07/03/17 13:18 Dose: 10 mg Meropenem 1g/NS 100mL IVPB (Meropenem 1g/Ns 100ml Ivpb) 1 gm in 100 mls @ 100 mls/hr IVPB Q8 [facility] PRN Reason: Protocol Stop: 07/08/17 15:31 Last Admin: 07/03/17 13:20 Dose: 100 mls/hr Trimethoprim/Sulfamethoxazole (1,241 mg/ Dextrose) 1,000 mls @ 250 mls/hr IVPB Q12H [facility] Last Admin: 07/03/17 13:41 Dose: 250 mls/hr Insulin Human Regular (Humulin R Med) 0 units SC ACHS [facility] PRN Reason: Protocol Last Admin: 07/03/17 12:50 Dose: Not Given Lactobacillus Acidophilus (Bacid Acidophilus) 1 cap PO BID [facility] PRN Reason: Protocol Last Admin: 07/03/17 10:21 Dose: 1 cap Levothyroxine Sodium (Synthroid) 75 mcg PO 0600 [facility] Last Admin: 07/03/17 05:18 Dose: 75 mcg Metoprolol Tartrate (Lopressor) 25 mg PO BID [facility] PRN Reason: Protocol Last Admin: 07/03/17 10:23 Dose: 25 mg Montelukast Sodium (Singulair) 10 mg PO DAILY [facility] PRN Reason: Protocol Last Admin: 07/03/17 10:21 Dose: 10 mg Mupirocin (Bactroban Ointment) 1 gm TOP 1000,2200 [facility] PRN Reason: Protocol Last Admin: 07/03/17 11:38 Dose: 1 applic Oxycodone HCl (Oxycodone Immediate Release Tab) 15 mg PO Q6H PRN; Protocol PRN Reason: Pain, severe (8-10) Last Admin: 07/03/17 11:36 Dose: 15 mg Oxycodone HCl (Oxycontin Extended Release Tab) 80 mg PO Q6 [facility] Last Admin: 07/03/17 12:35 Dose: 80 mg Pantoprazole Sodium (Protonix Ec Tab) 40 mg PO 0600 [facility] Last Admin: 07/03/17 05:18 Dose: 40 mg Trazodone HCl (Desyrel) 50 mg PO HS [facility] PRN Reason: Protocol Last Admin: 07/02/17 21:55 Dose: 50 mg Warfarin Sodium (Coumadin) 10 mg PO 1800 [facility] PRN Reason: Protocol Last Admin: 07/02/17 17:11 Dose: 10 mg - Labs Labs: 06/28/17 06:50 06/29/17 07:10 PT 33.5 Seconds (9.9-11.8) H* 07/03/17 06:45 INR 3.10 (0.93-1.08) H 07/03/17 06:45 Attending/Attestation - Attestation I have personally seen and examined this patient.: Yes I have fully participated in the care of the patient.: Yes I have reviewed all pertinent clinical information, including history, physical exam and plan: Yes
--- NOTE | 2017-07-03 13:02 | PN ---
DATE: 07/02/2017 SUBJECTIVE: The patient is in TCU, seems comfortable, and afebrile. No chest pain. No respiratory distress. He is being discharged tomorrow. PHYSICAL EXAMINATION: VITAL SIGNS: As follows; temperature is 98, heart rate is 55, blood pressure is 107/64, respirations are 18, and saturated 96% on room air. HEAD AND NECK: Normal. No JVD. No thyromegaly. CHEST: Clear with good air entry. CARDIAC: First sound and second sound normal. ABDOMEN: Morbidly obese. EXTREMITIES: Edema. Left leg is wrapped with gauze and seen by podiatry with left leg ulcer. NEUROLOGIC: He moves all extremities. LABORATORY STUDIES: His PT/INR; 27.6 PT and INR 2.56. Continue current treatment. IMPRESSION AND PLAN: 1. Left leg cellulitis recurrent with acute worsening. Continue local wound care. The patient will continue IV antibiotic currently and then we will discontinue it. 2. Hypertension. The patient is off Cozaar because of creatinine. We will continue current treatment and he is getting hydralazine 10 mg q.i.d. He is getting also Lasix. 3. Chronic leg edema. Right-sided heart failure. Continue Lasix, potassium, and seems stable. 4. Chronic deep venous thrombosis. History of pulmonary embolism. [place] filter. Continue Coumadin. Monitor PT/INR, hypothyroidism, diabetes type 2, morbid obesity, obstructive sleep apnea, continue current management, and we will follow up clinically. 5. Chronic back pain, chronic ulcer and cellulitis, and chronic pain syndrome. Continue oxycodone and OxyContin. Followup clinically. The patient is noncompliant with BiPAP at home, but he seems he does not get here. Discussed with the patient about morbid obesity and diet and weight loss surgery and the patient has been referred before to bariatric surgeon, seems noncompliant. Continue current management. Followup clinically. The patient will be discharge home in the morning. Yvon Gonzalez MD
[2017-07-03] MEDS: DEXTROSE 5% IVPB SCH ×2 (13:41→22:44)
[2017-07-03] MEDS: TRIMETHOPRIM IVPB SCH ×2 (13:41→22:44)
[2017-07-03] MEDS: WATER IVPB SCH ×2 (13:41→22:44)
[2017-07-03] MEDS: SULFAMETHOXAZOLE IVPB SCH ×2 (13:41→22:44)
--- NOTE | 2017-07-03 20:31 | CP.PCM.PN ---
Subjective - Date & Time of Evaluation Date of Evaluation: 07/03/17 Time of Evaluation: 11:45 - Subjective Subjective: Less pain in the left leg, no fevers overnight. Objective - Vital Signs/Intake and Output Vital Signs (last 24 hours): Temp Pulse Resp BP Pulse Ox 98.1 F 80 18 112/78 96 07/02/17 16:00 07/02/17 21:54 07/02/17 16:00 07/02/17 21:54 07/02/17 16:00 - Medications Medications: Current Medications Arformoterol Tartrate (Brovana) 15 mcg IH [id number] [facility] PRN Reason: Protocol Last Admin: 07/03/17 07:15 Dose: Not Given Budesonide (Pulmicort Respules) 0.5 mg IH [id number] [facility] PRN Reason: Protocol Last Admin: 07/03/17 07:15 Dose: Not Given Docusate Sodium (Colace) 100 mg PO BID [facility] PRN Reason: Protocol Last Admin: 07/02/17 17:11 Dose: 100 mg Furosemide (Lasix) 80 mg PO DAILY [facility] PRN Reason: Protocol Last Admin: 07/02/17 10:33 Dose: 80 mg Gabapentin (Neurontin) 300 mg PO QID [facility] PRN Reason: Protocol Last Admin: 07/02/17 21:56 Dose: 300 mg Hydralazine HCl (Apresoline) 10 mg PO QID [facility] Last Admin: 07/02/17 21:54 Dose: 10 mg Meropenem 1g/NS 100mL IVPB (Meropenem 1g/Ns 100ml Ivpb) 1 gm in 100 mls @ 100 mls/hr IVPB Q8 [facility] PRN Reason: Protocol Stop: 07/08/17 15:31 Last Admin: 07/03/17 05:17 Dose: 100 mls/hr Insulin Human Regular (Humulin R Med) 0 units SC ACHS [facility] PRN Reason: Protocol Last Admin: 07/03/17 06:54 Dose: Not Given Lactobacillus Acidophilus (Bacid Acidophilus) 1 cap PO BID [facility] PRN Reason: Protocol Last Admin: 07/02/17 17:11 Dose: 1 cap Levothyroxine Sodium (Synthroid) 75 mcg PO 0600 [facility] Last Admin: 07/03/17 05:18 Dose: 75 mcg Metoprolol Tartrate (Lopressor) 25 mg PO BID [facility] PRN Reason: Protocol Last Admin: 07/02/17 17:13 Dose: 25 mg Montelukast Sodium (Singulair) 10 mg PO DAILY [facility] PRN Reason: Protocol Last Admin: 07/02/17 10:34 Dose: 10 mg Mupirocin (Bactroban Ointment) 1 gm TOP 1000,2200 [facility] PRN Reason: Protocol Last Admin: 07/02/17 21:54 Dose: Not Given Oxycodone HCl (Oxycodone Immediate Release Tab) 15 mg PO Q6H PRN; Protocol PRN Reason: Pain, severe (8-10) Last Admin: 07/03/17 05:16 Dose: 15 mg Oxycodone HCl (Oxycontin Extended Release Tab) 80 mg PO Q6 [facility] Last Admin: 07/03/17 06:43 Dose: 80 mg Pantoprazole Sodium (Protonix Ec Tab) 40 mg PO 0600 [facility] Last Admin: 07/03/17 05:18 Dose: 40 mg Trazodone HCl (Desyrel) 50 mg PO HS [facility] PRN Reason: Protocol Last Admin: 07/02/17 21:55 Dose: 50 mg Trimethoprim/Sulfamethoxazole (Bactrim Inj) 1,241 mg 8 mg/kg (1241 mg) IVPB Q12H [facility] PRN Reason: Protocol Warfarin Sodium (Coumadin) 10 mg PO 1800 [facility] PRN Reason: Protocol Last Admin: 07/02/17 17:11 Dose: 10 mg - Labs Labs: 06/28/17 06:50 06/29/17 07:10 PT 33.5 Seconds (9.9-11.8) H* 07/03/17 06:45 INR 3.10 (0.93-1.08) H 07/03/17 06:45 - Constitutional Appears: Non-toxic, No Acute Distress - Head Exam Head Exam: NORMAL INSPECTION - ENT Exam ENT Exam: Mucous Membranes Moist - Neck Exam Neck Exam: absent: Meningismus - Respiratory Exam Respiratory Exam: Decreased Breath Sounds - Cardiovascular Exam Cardiovascular Exam: +S1, +S2 - GI/Abdominal Exam GI & Abdominal Exam: Soft. absent: Tenderness - Extremities Exam Additional comments: left leg with dressings in place Assessment and Plan - Assessment and Plan (Free Text) Plan: Assessment skin and skin structure infection with bilateral leg infected ulcers (left greater than right) in a patient with recurrent leg infections and venous stasis , now growing multidrug resistant Pseudomonas and ESBL E. coli; during previous admission he also grew MSSA but not this time; now also growing Acinetobacter S/P wound vacuum placement for upper thigh wounds history of Skin and skin structure infection of the left lower extremity with Pseudomonas, Enterococcus and MRSA in a patient with recurrent left leg infection Morbid obesity with BMI of 43 DM HTN COPD hyopthyroidism bilateral lower extremity swelling due to venous stasis Osteoarthritis Chronic pain syndrome Plan continue Merrem (day 12) - we have held Tobramycin because of mild acute renal insufficiency - will also add Bactrim (can be switched to PO form on discharge, to complete a 7-10 day course; target 10-[address] leg did not show osteomyelitis will continue to monitor clinically while the patient is in the hospital
[2017-07-04] MEDS: oxyCODONE 80 mg ER Tab (oxyCONTIN) PO SCH ×4 (00:02→17:52)
--- NOTE | 2017-07-04 01:00 | PN ---
PULMONARY PROGRESS NOTE DATE: 07/03/2017 REFERRING PHYSICIAN: Yvno Gonzalez MD SUBJECTIVE: He is lying in the bed, head at 45 degrees. Night was unremarkable. No headaches. No rhinitis. No nausea. No vomiting. No diarrhea. Still oozing ulcer of the lower extremity, has Steven wraps on the left lower extremity. OBJECTIVE: GENERAL: No acute distress. VITAL SIGNS: Temperature is 98, heart rate 68, respiratory rate is 20, blood pressure 124/74 and pulse ox 98% on room air. HEENT: Moist mucus membrane. Crowded airway. Mallampati score is 4. NECK: Supple. No JVD. LUNGS: Fair airflow with few rhonchi. HEART: S1 and S2. ABDOMEN: Soft and nontender. No organomegaly. EXTREMITIES: There is Steven wraps on the left lower extremity edema, has some oozing ulcer. NEUROLOGIC: Awake and alert. Follows simple command. MEDICATIONS: He is on hydralazine 10 mg q.i.d., Bacid one capsule twice a day, bacitracin ointment twice a day, Brovana 15 mcg inhaled twice a day, Colace 100 mg twice day, Coumadin 10 mg given daily, trazodone 50 mg at bedtime, Flonase one spray each nostril daily, Lasix 80 mg daily, metoprolol tartrate 25 mg twice a day, meropenem 1 g IV q. 8 hours, Neurontin 300 mg q.i.d., oxycodone extended release 80 mg q. 6 hours, Protonix 40 mg daily, Pulmicort inhaled twice a day, Singulair 10 mg daily, Synthroid 75 mcg daily, Bactrim IV q.12 hour and Tylenol p.r.n. basis. LABORATORY DATA: Reviewed. Noted INR 3.10. Blood sugar is at 246. The leg wound has Acinetobacter baumannii. IMPRESSION AND PLAN: Recurrent lower extremity infected ulcers and cellulitis, history of chronic deep venous thrombosis, pulmonary embolism, history of inferior vena cava filter, chronic obstructive lung disease, obstructive sleep apnea syndrome, chronic pain syndrome, opioid dependence. Spoke to the patient about fluid intake to restrict it. Continue diuretics. Keep lower extremity elevated. Sleep apnea precautions, careful with sedation, risk of opiates, and sleep apnea discussed. The patient understands the risks. Continue therapy. Followup INR. Thank you and we will follow with you. Siri Santoyo MD [facility] # [id number]
[2017-07-04] MEDS: oxyCODONE 15 mg Immediate Release Tab PO PRN ×3 (04:37→17:08)
[2017-07-04] MEDS: Meropenem 1g/NS 100mL IVPB 1 GM/100 ML PIGGYBACK IVPB SCH ×2 (05:18→14:38)
[2017-07-04] MEDS: Levothyroxine 75 MCG TAB PO SCH (05:19)
[2017-07-04] MEDS: Pantoprazole 40 mg EC Tab PO SCH (05:19)
[2017-07-04 07:22] LABS: BASO # 0.02 K/mm3 (0.0-2.0); BASO % 0.4 % (0.0-3.0); EOS # 0.3 (0.0-0.7); EOS % 6.1 % (1.5-5.0); GRAN # 3.35 (1.4-6.5); GRAN % 59.6 % (50.0-68.0); HEMATOCRIT 32.7 % (42.0-52.0); LYMPH # 1.5 (1.2-3.4); LYMPH % 26.9 % (22.0-35.0); MEAN CELL VOLUME 84.9 fl (80.0-105.0); MEAN CORPUSCULAR HEMOGLOBIN 27.5 pg (25.0-35.0); MEAN CORPUSCULAR HGB CONC 32.4 g/dl (31.0-37.0); MEAN PLATELET VOLUME 12.1 fl (7.0-11.0); MONO # 0.4 (0.1-0.6); RED CELL DISTRIBUTION WIDTH 13.8 % (11.5-14.5); WHITE BLOOD COUNT 5.6 10^3/ul (4.5-11.0)
[2017-07-04] MEDS: Arformoterol 15 mcg/2 ml Inh Sol IH SCH (07:24)
[2017-07-04] MEDS: Budesonide 0.5 mg/2 ml Inhal Susp UD IH SCH (07:25)
[2017-07-04 07:29] LABS: INR 3.43 (0.93-1.08)
[2017-07-04 07:36] LABS: ALB/GLOB RATIO 1.1 (1.1-1.8); ALKALINE PHOSPHATASE 162 U/L (38-126); ALT/SGPT 31 U/L (7-56); AST/SGOT 26 U/L (17-59); BILIRUBIN,TOTAL 0.2 mg/dL (0.2-1.3); BLOOD UREA NITROGEN 42 mg/dL (7-21); CARBON DIOXIDE 29 mmol/L (21-33); CHLORIDE 95 mmol/L (98-107); GFR AFRICAN-AMERICAN > 60; GLUCOSE,RANDOM 78 mg/dL (70-110); POTASSIUM 4.2 mmol/L (3.6-5.0); SODIUM 135 mmol/L (132-148); TOTAL PROTEIN 7.3 g/dL (5.8-8.3)
--- NOTE | 2017-07-04 09:33 | CP.PCM.PN ---
<Jak Jenningsmoisesfacundo - Last Filed: 07/04/17 09:29> Subjective - Date & Time of Evaluation Date of Evaluation: 07/04/17 Time of Evaluation: 09:29 - Subjective Subjective: Podiatry Progress Note for Dr. Zavaleta 57 y/o male seen at bedside with attending Dr. Finch for concerning bilateral venous stasis ulcerations, left worse than the right. Pt is AAO x3 and in NAD. Patient admits to significant pain in the left leg when he puts any pressure on the outside of the leg while in bed. Patient denies any acute events overnight. Pt has no other pedal complaints at this time. Patient denies N/V/F/D/C/SOB. Objective - Vital Signs/Intake and Output Vital Signs (last 24 hours): Temp Pulse Resp BP Pulse Ox 98.3 F 60 16 115/75 95 07/04/17 06:00 07/04/17 06:00 07/04/17 06:00 07/04/17 06:00 07/04/17 06:00 - Medications Medications: Current Medications Acetaminophen (Tylenol 325mg Tab) 650 mg PO Q6H PRN; Protocol PRN Reason: Pain, Mild (1-3) Last Admin: 07/04/17 08:13 Dose: 650 mg Arformoterol Tartrate (Brovana) 15 mcg IH [id number] [facility] PRN Reason: Protocol Last Admin: 07/04/17 07:24 Dose: Not Given Budesonide (Pulmicort Respules) 0.5 mg IH [id number] [facility] PRN Reason: Protocol Last Admin: 07/04/17 07:25 Dose: Not Given Docusate Sodium (Colace) 100 mg PO BID [facility] PRN Reason: Protocol Last Admin: 07/03/17 17:18 Dose: 100 mg Fluticasone Propionate (Flonase) 1 actuation NS DAILY [facility] PRN Reason: Protocol Last Admin: 07/03/17 11:39 Dose: 1 applic Furosemide (Lasix) 80 mg PO DAILY [facility] PRN Reason: Protocol Last Admin: 07/03/17 10:22 Dose: 80 mg Gabapentin (Neurontin) 300 mg PO QID [facility] PRN Reason: Protocol Last Admin: 07/03/17 21:44 Dose: 300 mg Hydralazine HCl (Apresoline) 10 mg PO QID [facility] Last Admin: 07/03/17 21:45 Dose: 10 mg Meropenem 1g/NS 100mL IVPB (Meropenem 1g/Ns 100ml Ivpb) 1 gm in 100 mls @ 100 mls/hr IVPB Q8 [facility] PRN Reason: Protocol Stop: 07/08/17 15:31 Last Admin: 07/04/17 05:18 Dose: 100 mls/hr Trimethoprim/Sulfamethoxazole (1,241 mg/ Dextrose) 1,000 mls @ 250 mls/hr IVPB Q12H [facility] Last Admin: 07/03/17 22:44 Dose: 250 mls/hr Insulin Human Regular (Humulin R Med) 0 units SC ACHS [facility] PRN Reason: Protocol Last Admin: 07/03/17 22:45 Dose: Not Given Lactobacillus Acidophilus (Bacid Acidophilus) 1 cap PO BID [facility] PRN Reason: Protocol Last Admin: 07/03/17 17:18 Dose: 1 cap Levothyroxine Sodium (Synthroid) 75 mcg PO 0600 [facility] Last Admin: 07/04/17 05:19 Dose: 75 mcg Metoprolol Tartrate (Lopressor) 25 mg PO BID [facility] PRN Reason: Protocol Last Admin: 07/03/17 17:18 Dose: 25 mg Montelukast Sodium (Singulair) 10 mg PO DAILY [facility] PRN Reason: Protocol Last Admin: 07/03/17 10:21 Dose: 10 mg Mupirocin (Bactroban Ointment) 1 gm TOP 1000,2200 [facility] PRN Reason: Protocol Last Admin: 07/03/17 22:45 Dose: 1 applic Oxycodone HCl (Oxycontin Extended Release Tab) 80 mg PO Q6 [facility] Last Admin: 07/04/17 05:18 Dose: 80 mg Oxycodone HCl (Oxycodone Immediate Release Tab) 15 mg PO Q6H PRN; Protocol PRN Reason: Pain, moderate (4-7) Last Admin: 07/04/17 04:37 Dose: 15 mg Pantoprazole Sodium (Protonix Ec Tab) 40 mg PO 0600 [facility] Last Admin: 07/04/17 05:19 Dose: 40 mg Trazodone HCl (Desyrel) 50 mg PO HS [facility] PRN Reason: Protocol Last Admin: 07/03/17 21:45 Dose: 50 mg Warfarin Sodium (Coumadin) 10 mg PO 1800 [facility] PRN Reason: Protocol Last Admin: 07/03/17 17:16 Dose: 10 mg - Labs Labs: 07/04/17 07:00 07/04/17 07:00 PT 37.0 Seconds (9.9-11.8) H* 07/04/17 07:00 INR 3.43 (0.93-1.08) H 07/04/17 07:00 - Constitutional Appears: Well, Non-toxic, No Acute Distress - Extremities Exam Additional comments: Bilateral lower extremity examination: Derm: Localized erythema to bilateral mid-calves, decreasing. Cellulitis localized along superficial ulcerations. Left: Diffuse open venous stasis ulcerations spanning the anterior and lateral aspects of mid-leg with significant amount of active sanguinous drainage noted to proximal lateral ulcerations. Wounds have a granular base with actively bleeding tissue. Malodor noted upon dressing change. No probe to bone, no purulence, no undermining. Right: Venous stasis ulceration to anterior distal 1/3 of leg measuring approximately 2.5cm x 1.8cm x 0.1cm with granular base, no serous drainage, no active bleeding, no undermining, no tracking, no probe to bone. Superficial ulceration with no active drainage noted to medial aspect of right leg with granular base, no purulence. Vasc: Non-palpable pedal pulses due to edema B/L. TG warm to warm, CFT < 3 sec to all digits, +1 pitting edema to B/L legs. Neuro: protective sensation grossly diminished MSK: significant tenderness on palpation of left lower extremity - Neurological Exam Neurological Exam: Alert, Awake, Oriented x3 - Psychiatric Exam Psychiatric exam: Normal Affect, Normal Mood Assessment and Plan - Assessment and Plan (Free Text) Assessment: 57 y/o male with bilateral lower extremity venous stasis ulcerations Plan: Patient evaluated and seen at bedside with attending Dr. Zavaleta Labs and vitals reviewed; afebrile WBC @ 5.6 today Continue IV abx per ID - Meropenem Cleansed legs with normal saline and 4x4s left leg dressed with bactroban, Telfa, ABDs, Kerlix and loosely wrapped YAYO bandages right leg dressed with optifoam Nursing orders in place for q12h dressing changes with Bactroban to wounds, Telfa, ABD pads, Kerlix and lightly wrapped YAYO bandages to B/L legs Wound culture acinetobacter baumanii Podiatry will continue to monitor while patient remains in house <Parish Zavaleta - Last Filed: 07/07/17 11:20> Objective - Vital Signs/Intake and Output Vital Signs (last 24 hours): Temp Pulse Resp BP Pulse Ox 98 F 60 14 119/70 99 07/04/17 16:16 07/04/17 17:12 07/04/17 16:16 07/04/17 17:12 07/04/17 10:55 - Labs Labs: 07/04/17 07:00 07/04/17 07:00 PT 37.0 Seconds (9.9-11.8) H* 07/04/17 07:00 INR 3.43 (0.93-1.08) H 07/04/17 07:00 Attending/Attestation - Attestation I have personally seen and examined this patient.: Yes I have fully participated in the care of the patient.: Yes I have reviewed all pertinent clinical information, including history, physical exam and plan: Yes
[2017-07-04] MEDS: DEXTROSE 5% IVPB SCH (10:39)
[2017-07-04] MEDS: WATER IVPB SCH (10:39)
[2017-07-04] MEDS: SULFAMETHOXAZOLE IVPB SCH (10:39)
[2017-07-04] MEDS: TRIMETHOPRIM IVPB SCH (10:39)
[2017-07-04] MEDS: Lactobacillus Acidophilus 500 MU Cap PO SCH ×2 (10:40→17:11)
[2017-07-04] MEDS: Fluticasone Nasal 50 mcg/Spray NS SCH (10:41)
[2017-07-04 10:56] VITALS: O2SAT 99
[2017-07-04] MEDS: Insulin Reg-MEDIUM-Coverage SC SCH ×2 (14:38→17:09)
[2017-07-04 16:16] VITALS: BP 119/70; PULSE 60; RESP 14; TEMP 98
--- NOTE | 2017-07-04 17:25 | CP.PCM.PN ---
Subjective - Date & Time of Evaluation Date of Evaluation: 07/04/17 Time of Evaluation: 12:10 - Subjective Subjective: Comfortable in bed, not in distress, afebrile, less pain in the left leg. Objective - Vital Signs/Intake and Output Vital Signs (last 24 hours): Temp Pulse Resp BP Pulse Ox 98 F 60 14 119/70 99 07/04/17 16:16 07/04/17 17:12 07/04/17 16:16 07/04/17 17:12 07/04/17 10:55 - Medications Medications: Current Medications Acetaminophen (Tylenol 325mg Tab) 650 mg PO Q6H PRN; Protocol PRN Reason: Pain, Mild (1-3) Last Admin: 07/04/17 12:39 Dose: 650 mg Arformoterol Tartrate (Brovana) 15 mcg IH [id number] [facility] PRN Reason: Protocol Last Admin: 07/04/17 07:24 Dose: Not Given Budesonide (Pulmicort Respules) 0.5 mg IH [id number] [facility] PRN Reason: Protocol Last Admin: 07/04/17 07:25 Dose: Not Given Docusate Sodium (Colace) 100 mg PO BID [facility] PRN Reason: Protocol Last Admin: 07/04/17 17:11 Dose: 100 mg Fluticasone Propionate (Flonase) 1 actuation NS DAILY [facility] PRN Reason: Protocol Last Admin: 07/04/17 10:41 Dose: 1 applic Furosemide (Lasix) 80 mg PO DAILY [facility] PRN Reason: Protocol Last Admin: 07/04/17 10:42 Dose: 80 mg Gabapentin (Neurontin) 300 mg PO QID [facility] PRN Reason: Protocol Last Admin: 07/04/17 17:13 Dose: 300 mg Hydralazine HCl (Apresoline) 10 mg PO QID [facility] Last Admin: 07/04/17 17:10 Dose: 10 mg Meropenem 1g/NS 100mL IVPB (Meropenem 1g/Ns 100ml Ivpb) 1 gm in 100 mls @ 100 mls/hr IVPB Q8 [facility] PRN Reason: Protocol Stop: 07/08/17 15:31 Last Admin: 07/04/17 14:38 Dose: 100 mls/hr Trimethoprim/Sulfamethoxazole (1,241 mg/ Dextrose) 1,000 mls @ 250 mls/hr IVPB Q12H [facility] Last Admin: 07/04/17 10:39 Dose: 250 mls/hr Insulin Human Regular (Humulin R Med) 0 units SC ACHS [facility] PRN Reason: Protocol Last Admin: 07/04/17 17:09 Dose: Not Given Lactobacillus Acidophilus (Bacid Acidophilus) 1 cap PO BID [facility] PRN Reason: Protocol Last Admin: 07/04/17 17:11 Dose: 1 cap Levothyroxine Sodium (Synthroid) 75 mcg PO 0600 [facility] Last Admin: 07/04/17 05:19 Dose: 75 mcg Metoprolol Tartrate (Lopressor) 25 mg PO BID [facility] PRN Reason: Protocol Last Admin: 07/04/17 17:12 Dose: 25 mg Montelukast Sodium (Singulair) 10 mg PO DAILY [facility] PRN Reason: Protocol Last Admin: 07/04/17 10:43 Dose: 10 mg Mupirocin (Bactroban Ointment) 1 gm TOP 1000,2200 [facility] PRN Reason: Protocol Last Admin: 07/04/17 10:41 Dose: 1 applic Oxycodone HCl (Oxycontin Extended Release Tab) 80 mg PO Q6 [facility] Last Admin: 07/04/17 11:59 Dose: 80 mg Oxycodone HCl (Oxycodone Immediate Release Tab) 15 mg PO Q6H PRN; Protocol PRN Reason: Pain, moderate (4-7) Last Admin: 07/04/17 17:08 Dose: 15 mg Pantoprazole Sodium (Protonix Ec Tab) 40 mg PO 0600 [facility] Last Admin: 07/04/17 05:19 Dose: 40 mg Trazodone HCl (Desyrel) 50 mg PO HS [facility] PRN Reason: Protocol Last Admin: 07/03/17 21:45 Dose: 50 mg Warfarin Sodium (Coumadin) 10 mg PO 1800 [facility] PRN Reason: Protocol Last Admin: 07/03/17 17:16 Dose: 10 mg - Labs Labs: 07/04/17 07:00 07/04/17 07:00 PT 37.0 Seconds (9.9-11.8) H* 07/04/17 07:00 INR 3.43 (0.93-1.08) H 07/04/17 07:00 - Constitutional Appears: Non-toxic, No Acute Distress - Head Exam Head Exam: NORMAL INSPECTION - Neck Exam Neck Exam: absent: Meningismus - Respiratory Exam Respiratory Exam: Decreased Breath Sounds - Cardiovascular Exam Cardiovascular Exam: +S1, +S2 - GI/Abdominal Exam GI & Abdominal Exam: Soft. absent: Tenderness - Extremities Exam Additional comments: left leg with dressings in place Assessment and Plan - Assessment and Plan (Free Text) Plan: Assessment skin and skin structure infection with bilateral leg infected ulcers (left greater than right) in a patient with recurrent leg infections and venous stasis , now growing multidrug resistant Pseudomonas and ESBL E. coli; during previous admission he also grew MSSA but not this time; now also growing Acinetobacter S/P wound vacuum placement for upper thigh wounds history of Skin and skin structure infection of the left lower extremity with Pseudomonas, Enterococcus and MRSA in a patient with recurrent left leg infection Morbid obesity with BMI of 43 DM HTN COPD hyopthyroidism bilateral lower extremity swelling due to venous stasis Osteoarthritis Chronic pain syndrome Plan on Merrem (day 13) - we have held Tobramycin because of mild acute renal insufficiency - continue Bactrim (can be switched to PO form on discharge, to complete a 7-10 day course; target 10-[address] leg did not show osteomyelitis
--- NOTE | 2017-07-04 19:59 | PN ---
DATE: 07/04/2017 PULMONARY PROGRESS NOTE REFERRING PHYSICIAN: Dr. Gonzalez. SUBJECTIVE: The patient is lying in the bed, head at 45 degrees. Night was unremarkable. No headaches. No rhinitis. No nausea. No vomiting. No diarrhea. lower extremity. OBJECTIVE: GENERAL: No acute distress. VITAL SIGNS: Temperature is 98, heart rate 62, respiratory rate is 20, blood pressure 114/76 and pulse ox 99% via nasal cannula. HEENT: Moist mucus membrane. Crowded airway. Mallampati score is 4. NECK: Supple. No JVD. LUNGS: Fair airflow with few rhonchi. HEART: S1 and S2. ABDOMEN: Soft, nontender, nondistended. EXTREMITIES: Has Steven wraps on the left lower extremity, swelling is decreased. NEUROLOGIC: Awake and alert. Follows simple command. MEDICATIONS: He is on hydralazine 10 mg q.i.d., lactobacillus one capsule twice a day, Brovana 15 mcg inhaled twice a day, Colace 100 mg twice day, Coumadin 10 mg daily, trazodone 50 mg daily, Flonase one spray each nostril daily, insulin coverage, Lasix 80 mg daily, metoprolol tartrate 25 mg twice a day, meropenem 1 g IV q. 8 hours, gabapentin 300 mg q.i.d., oxycodone immediate-release 15 mg q. 6 hours p.r.n, OxyContin extended release 80 mg q. 6 hours, Protonix 40 mg daily, Pulmicort inhaled twice a day, Singulair 10 mg daily, Synthroid 75 mcg daily, Bactrim q. 12 hour and Tylenol p.r.n. basis. LABORATORY DATA: Shows hemoglobin 10.6, hematocrit 32.7, WBC 5.6, platelet is 157, INR 3.43. Sodium 135, potassium 4.2, chloride 95, bicarb 29, BUN 42, creatinine 1.4, glucose is 78, calcium is 9.0. AST 26, ALT 31,alk phos is 162. IMPRESSION AND PLAN: Recurrent lower extremity infection with ulcers and cellulitis, chronic deep venous thrombosis of lower extremity, pulmonary embolism, history of inferior vena cava filter, chronic obstructive lung disease, obstructive sleep apnea syndrome, chronic pain syndrome, opioid dependence. From pulmonary point of view, doing okay. Hold Coumadin today. INR in the morning. Keep head at 45 degrees. Encourage BiPAP use. Careful with sedation, at high risk for respiratory failure secondary to sleep apnea. Thank you and we will follow with you. Siri Santoyo MD
--- NOTE | 2017-07-07 17:44 | PN ---
DATE: 07/03/2017 SUBJECTIVE: This is a 57-year-old male with left leg cellulitis, in TCU, currently on IV antibiotic meropenem and Bactrim. The patient seen by ID consult and Podiatry consult and advised to be discharged in the morning and should continue p.o. Bactrim for 7 to 10 days total. The patient has no chest pain, not short of breath and seems stable. Local wound care has been done and the patient seems stable. PHYSICAL EXAMINATION: VITAL SIGNS: His vital signs on that date is as followed: Temperature is 98, heart rate is 68, blood pressure is 124/74, respirations are 20, and oxygen saturation is 98%. HEAD AND NECK: Normal. No JVD. No thyromegaly CHEST: Clear with good air entry. CARDIAC: First sound and second sound normal. ABDOMEN: Obese and nontender. EXTREMITIES: Edema of left leg more than right leg. There is left leg ulceration that is covered with gauze. NEUROLOGIC: The patient moves all extremities. Due to his heavy set weight cannot examine his gait. LABORATORY DATA: Blood sugar of 135. Blood culture grown more than Gram stain, final showed Acinetobacter baumannii. IMPRESSION: 1. Left leg cellulitis, Acinetobacter baumannii. The patient was added Bactrim in addition to meropenem. We are going to continue that for 7 to 10 days total dose plus continue local wound care. The patient is currently on intravenous Bactrim. 2. Chronic obstructive pulmonary disease, pulmonary hypertension, right-sided heart failure, and obstructive sleep apnea. Continue bilevel positive airway pressure and continue Coumadin for deep venous thrombosis and continue bronchodilators. 3. Morbid obesity, chronic back pain, and chronic osteoarthritis. Continue oxycodone and OxyContin. 4. Hypertension, diabetes, and hypothyroidism. PLAN: Continue current treatment. The patient advised not to take any YAYO inhibitors, it was associated with increase and rapid rise of BUN and creatinine. We would hold off that and we will continue the rest of the medications. We will continue current treatment. We will follow up clinically. The patient is stable and will be discharged home tomorrow. If it is okay with ID, continue IV Bactrim for now. Yvon Gonzalez MD
--- NOTE | 2017-07-08 03:40 | DS ---
HISTORY OF PRESENT ILLNESS: The patient is stable. No new complaints. Currently on IV Bactrim and IV meropenem. PHYSICAL EXAMINATION: VITAL SIGNS: As follows; temperature is 98.3, heart rate is 60, blood pressure 115/75, respirations 16, and saturation 95%. HEAD AND NECK: Normal. No JVD. No thyromegaly. CHEST: Clear with good air entry. CARDIAC: First sound and second sound normal. ABDOMEN: Obese and nontender. EXTREMITIES: There is edema left more than right with skin exam left leg ulcerations that has been improved and has been covered with gauze. LABORATORY STUDIES: Sodium 135, potassium 4.2, chloride 95, bicarbonate 29, BUN 42, and creatinine 1.4. Liver function test is normal. Hematology; CBC shows white count 5.6, hemoglobin 10.6, hematocrit 32.7, and platelets 157. PT and PTT is a little bit elevated. His PT/INR is 3.43. IMPRESSION AND DISCHARGE DIAGNOSES: 1. Left leg cellulitis due to Acinetobacter baumannii. Continue Bactrim for total 10 days. Continue local wound care. Follow up with Dr. Daniels, patient advised. Other significance and the importance and seriousness of outpatient followup at local wound care. 2. The patient does have bilateral leg edema. Deep venous thrombosis. Henna filter. History of pulmonary embolism. Continue Coumadin. We will monitor PT/INR. Currently, the patient is on Bactrim, which increased PT/INR. The patient was given a smaller dose of Coumadin like 6 mg daily and followup PT/INR as outpatient. Continue Bactrim for now. Prescription for 10 days was given. 3. Morbid obesity, chronic arthritis, chronic back pain, and continue Percocet and oxycodone. 4. Obstructive sleep apnea and chronic obstructive pulmonary disease. Continue inhaled bronchodilators. Bilevel positive airway pressure machine. The patient is noncompliant with that. Advised risk of noncompliance as the patient include respiratory risk. 5. Hypertension. The patient advised to stop YAYO inhibitors and to continue the rest of the medication given. 6. Hypothyroidism, diabetes type 2, chronic insomnia, chronic depression, and morbid obesity. I did advise the patient to go for bariatric surgery. The patient had colonoscopies negative and stress test couple of 2 to 3 years ago was normal for bariatric surgery, but he declined it, seems not willing; however; we will continue stressing out the importance of diet and weight loss. Continue current management. Followup as outpatient. Yvon Gonzalez MD
== END 2017-07-04 18:25 | disposition home or self-care (01) | DRG 592 ==
LOC: TRCU 20:47
PROVIDERS: ADMIT Internal Medicine; ATTEND Internal Medicine
PROC: F07Z9FZ Gait Training/Functional Ambulation Treatment using Assistive, Adaptive, Supportive or Protective Equipment (ICD-10-PCS; principal; 2017-06-25)
PROC: F08Z4ZZ Home Management Treatment (ICD-10-PCS; 2017-06-25)
PROC: F08Z1ZZ Dressing Techniques Treatment (ICD-10-PCS; 2017-06-25)
PROC: F08Z0ZZ Bathing/Showering Techniques Treatment (ICD-10-PCS; 2017-06-25)
DX: L89.323 Pressure ulcer of left buttock, stage 3 (principal); N17.9 Acute kidney failure, unspecified; E11.22 Type 2 diabetes mellitus with diabetic chronic kidney disease; I13.0 Hypertensive heart and chronic kidney disease with heart failure and stage 1 through stage 4 chronic kidney disease, or unspecified chronic kidney disease; I50.9 Heart failure, unspecified; F11.20 Opioid dependence, uncomplicated; E11.65 Type 2 diabetes mellitus with hyperglycemia; Z68.43 Body mass index [BMI] 50.0-59.9, adult; L97.929 Non-pressure chronic ulcer of unspecified part of left lower leg with unspecified severity; L97.919 Non-pressure chronic ulcer of unspecified part of right lower leg with unspecified severity; L03.115 Cellulitis of right lower limb; L03.116 Cellulitis of left lower limb; I82.509 Chronic embolism and thrombosis of unspecified deep veins of unspecified lower extremity; L89.313 Pressure ulcer of right buttock, stage 3; E11.622 Type 2 diabetes mellitus with other skin ulcer; E03.9 Hypothyroidism, unspecified; E66.01 Morbid (severe) obesity due to excess calories; E78.5 Hyperlipidemia, unspecified; F06.4 Anxiety disorder due to known physiological condition; F41.1 Generalized anxiety disorder; G47.33 Obstructive sleep apnea (adult) (pediatric); G89.4 Chronic pain syndrome; Z86.711 Personal history of pulmonary embolism; N18.9 Chronic kidney disease, unspecified; M19.90 Unspecified osteoarthritis, unspecified site; I83.019 Varicose veins of right lower extremity with ulcer of unspecified site; I83.029 Varicose veins of left lower extremity with ulcer of unspecified site; I87.8 Other specified disorders of veins; J44.9 Chronic obstructive pulmonary disease, unspecified; K21.9 Gastro-esophageal reflux disease without esophagitis; Z16.24 Resistance to multiple antibiotics; Z79.01 Long term (current) use of anticoagulants; Z86.14 Personal history of Methicillin resistant Staphylococcus aureus infection; Z91.19 Patient's noncompliance with other medical treatment and regimen; Z96.649 Presence of unspecified artificial hip joint; Z96.653 Presence of artificial knee joint, bilateral; J45.909 Unspecified asthma, uncomplicated; B96.5 Pseudomonas (aeruginosa) (mallei) (pseudomallei) as the cause of diseases classified elsewhere; B96.20 Unspecified Escherichia coli [E. coli] as the cause of diseases classified elsewhere; M54.5 Low back pain; Z74.01 Bed confinement status